=== PATIENT | female | born 1965 | race Caucasian/White ===

== ENCOUNTER 2018-07-04 13:41 | Emergency (ER) | payer SELFPAY ==
[2018-07-04] VITALS (7 sets, daily range): BP systolic 139–144; BP diastolic 70–73; PULSE 84–99; RESP 11–16; TEMP 36.4; O2SAT 99–100; BMI 34.2
--- NOTE | 2018-07-04 14:25 | RAD_ITS ---
STUDY: X-RAY CHEST REASON FOR EXAM: Female, 52 years old. Cough TECHNIQUE: Portable upright chest COMPARISON: None. FINDINGS: The lungs are clear and expanded. Normal cardiomediastinal silhouette, yaneli and pleural margins. No acute osseous or upper abdominal process. RAD/Chest 1 View (Portable) IMPRESSION: No acute cardiopulmonary process. Electronically Signed: Isra Rubio MD at 14:56 EST Tel , Service support ,
--- NOTE | 2018-07-04 14:25 | EKG12_ITS ---
Test Reason : GEN ILLNESS Blood Pressure : / mmHG Vent. Rate : 084 BPM Atrial Rate : 084 BPM P-R Int : 130 ms QRS Dur : 078 ms QT Int : 346 ms P-R-T Axes : 025 014 055 degrees QTc Int : 408 ms Normal sinus rhythm Nonspecific ST and T wave abnormality Abnormal ECG Confirmed by ROMANA DUONG, KRISHNA ([id number]), pictures editor COLLEEN GREENWOOD ([id number]) on 07/15/2018 2:45:45 PM Referred By: JOAQUÍN Confirmed By:KRISHNA AVENDANO MD
--- NOTE | 2018-07-04 14:29 | NURSING ---
NO OLD EKGS
[2018-07-04 14:37] LABS: Absolute Lymphocyte Count 1.82 X10^3/ul (0.83-4.51); Absolute Neutrophil Count 3.2 X10^3/uL (2.0-7.7); Basophil# 0.03 X10^3/uL; Basophil% 0.5 % (0-1); Eosinophil# 0.12 X10^3/uL; Eosinophils% 2.2 % (0-5); Hematocrit 35.3 % (37-47); Hemoglobin 11.6 g/dl (12.0-15.0); Lymphocyte # 1.82 X10^3/ul (4.0); Lymphocyte % 32.7 % (19-41); Mean Corp Hgb Conc 32.9 g/gl (32-36); Mean Corpuscular Volume 82.1 fL (81-99); Mean Platelet Vol. 10.1 fl (6.2-12.0); Monocyte% 7.2 % (0-10); Neutrophil # 3.19 X10^3/uL (2.7-7.7); Neutrophil % 57.2 % (47-70); POSITIVE COUNT NO; POSITIVE DIFFERENTIAL NO; POSITIVE MORPHOLOGY NO; Platelet Count 280 K/mm3 (150-450); RBC Distribution Width CV 13.7 % (11.6-14.6); RBC Distribution Width SD 40.9 fl (35.1-43.9); White Blood Count 5.6 K/mm3 (4.4-11.0)
[2018-07-04] MEDS: 0.9% Normal Saline 1,000 ML 1000 ML IV (14:44)
[2018-07-04] MEDS: Ondansetron 4 MG/2 ML Vial IV (14:45)
[2018-07-04 14:55] LABS: ALB/GLOB Ratio 1.1 RATIO (0.9-2.4); AST(SGOT) 9 U/L (15-37); Alanine Aminotransfer ALT/SGPT 17 U/L (13-56); Albumin, Serum 3.4 g/dL (3.2-5.0); Alkaline Phosphatase 80 U/L (45-117); Anion Gap 15 (5-15); BUN 16 mg/dL (7-18); BUN/Creat Ratio 13.7 RATIO (10-20); Chloride 105 mmol/L (98-107); Creatinine, Serum 1.17 mg/dL (0.55-1.02); EST Glomerular Filtration Rate 51 mL/min (>60); Est Glom Filt Rate - Afr Amer 62 mL/min (>60); Estimated Creatinine Clearance 45.47 ml/min; Globulin 3.1 g/dL (2.2-4.2); Glucose 356 mg/dL (74-106); Lipase 138 U/L (73-393); Potassium 4.5 mmol/L (3.5-5.1); Protein, Total 6.5 g/dL (6.4-8.2); Sodium Level 141 mmol/L (136-145)
[2018-07-04] MEDS: 0.9% Normal Saline 1,000 ML 150 ML IV (15:35)
[2018-07-04 15:43] LABS: Bacteria 0 SEEN /hpf (None Seen); Mucous, Urine 0 SEEN /hpf (<or=2+); Red Blood Cells-Urine 0 SEEN /hpf (0-5)
[2018-07-04 15:44] LABS: Color, Urine Yellow (Yellow); Glucose, Dipstick 1000 mg/dl (Normal); Ketone-Dipstick 50 mg/dl (Negative); Leukocyte Esterase-Dipstick 25 /ul (Negative); Nitrite-Dipstick Negative (Negative); Occult Blood-Urine 10 /ul (Negative); Protein-Dipstick 30 mg/dl (Negative); Urine Bilirubin Dipstick Negative (Negative); Urine Clarity Sl. Cloudy (Clear); Urine Urobilinogen Normal (Normal)
[2018-07-04 15:51] LABS: Squamous Epithelial Cells - UA 0-5 SEEN /hpf (5-10)
[2018-07-04 15:53] LABS: Hyaline Cast 10-25 SEEN /lpf (0-5)
[2018-07-04 15:54] LABS: White Blood Cells 0-5 SEEN /hpf (0-5)
[2018-07-04 15:55] LABS: Calcium Oxalate Crystals Ur RARE /hpf (<or=2+)
[2018-07-04 15:56] LABS: Transitional Epithelial - Ur 0-5 SEEN /hpf (0-5)
--- NOTE | 2018-07-04 15:57 | ED.VISSUMM ---
- ER Visit Summary Date of Service: 07/04/18 Chief Complaint: Nausea History of Present Illness: The patient is a 52 F who states that about 1-1/2-2 weeks ago she had URI consisting of rhinorrhea and sore throat. She also had a cough. She states that for the past week she has felt nauseated. She notes decreased p.o. She feels lightheaded. She states she is unable to work due to the nausea. Last night brother and she became concerned about her symptoms particularly her elevated blood sugars so she came to the emergency department. She has not spoken to her family doctor. She does note she has had some diarrhea today. Physical Examination: Afebrile vital signs are stable Gen: Well-nourished well-developed Head: Normocephalic atraumatic Eyes: Perrl EOMI ENT: TMs clear no rhinorrhea moist mucous membranes Neck: Supple no lymphadenopathy no JVD nontender CVS: Regular rate rhythm no murmurs normal S1-S2 Respiratory: No distress clear to auscultation bilaterally chest nontender Abdomen: Soft nontender nondistended normal bowel sounds no masses Back: Nontender Extremity: Nontender no edema Skin: Normal color no rash Neuro: alert orientated ?3 CN II-XII intact normal strength sensation reflexes gait cerebellar Psych: Normal affect normal mood Test Results: White count is normal. Chemistry showed a glucose of 356 and creatinine 1.17. Liver lipase normal. Acetone is negative. Troponin negative. Urinalysis negative. EKG shows sinus rhythm with a rate of 84. Chest x-ray is negative. Emergency Department Course and Treatment: Patient received IV fluids and Zofran. Her blood sugar is down. I will write for the patient to have Zofran. She is to orally hydrate. Follow-up with her primary care physician. Impression: 1. Diabetic hyperglycemia 2. Viral syndrome This note was generated with [employer] dictation software. It may contain incorrect words, spelling, and punctuation that were not noted in review of the chart prior to signing ED Disposition - Plan for ED Patient: Disposition: Home or Assisted Living Chief Complaint: General Illness Instructions: ED Dehydration Prescriptions: Ondansetron [Zofran Odt] 4 mg PO Q6H PRN PRN #10 tab PRN Reason: Nausea Referrals: Desiree Sarmiento MD [Primary Care Provider] - As soon as possible
[2018-07-04 16:36] LABS: Bedside Glucose 247 mg/dL (70-110)
== END 2018-07-04 16:58 | disposition home or self-care (01) ==
PROVIDERS: Emergency Provider Emergency Medicine; Family Provider Family Medicine; PCP Family Medicine
DX: B34.9 Viral infection, unspecified (principal); E11.65 Type 2 diabetes mellitus with hyperglycemia; E78.00 Pure hypercholesterolemia, unspecified; Z79.4 Long term (current) use of insulin; Z79.82 Long term (current) use of aspirin; Z79.899 Other long term (current) drug therapy
CPT/HCPCS: 71045; 80053; 81001; 82009; 82962; 83690; 84484; 85025; 87804; 93005; 96361; 96374; 99285; J7030; A4216; J2405

== ENCOUNTER 2020-06-20 23:25 | Emergency (ER) | payer SELFPAY ==
[2020-06-20 23:27] VITALS: PULSE 117; RESP 26; TEMP 36.9; O2SAT 100; BMI 31.8
--- NOTE | 2020-06-20 23:40 | ED.RN ---
RN CALLED FOR EKG, NO OLD EKGS IN MUSE
[2020-06-20 23:41] VITALS: BP 267/107; PULSE 109; RESP 21; O2SAT 100
[2020-06-20] MEDS: LORazepam 2 MG/ML Syringe IV (23:41)
--- NOTE | 2020-06-20 23:56 | EKG12_ITS ---
Test Reason : SOB Blood Pressure : / mmHG Vent. Rate : 111 BPM Atrial Rate : 111 BPM P-R Int : 148 ms QRS Dur : 084 ms QT Int : 324 ms P-R-T Axes : 026 022 037 degrees QTc Int : 440 ms Sinus tachycardia with occasional Premature ventricular complexes Nonspecific T wave abnormality Abnormal ECG Confirmed by WILLIE DUONG, HANSA ([id number]), restaurant expeditor MARIALUISA VERA ([id number]) on 06/24/2020 9:06:16 AM Referred By: Nerissa Sanderson Confirmed By:HANSA TAPIA MD
[2020-06-20] MEDS: Succinylcholine Chloride 200 MG/10 ML Vial 150 MG IV (23:57)
[2020-06-21] VITALS (18 sets, daily range): BP systolic 92–200; BP diastolic 28–134; PULSE 75–98; RESP 14–20; TEMP 37.3–39.2; O2SAT 98–100
--- NOTE | 2020-06-21 00:01 | ED.DCSUM_ITS ---
History of Present Illness Chief Complaint: Alt LOC Informant: Family Narrative: Unable to get a history from the patient secondary to altered mental status History of present illness from welt maker and . stated he came home from work this evening approximately an hour prior to coming in and the patient was found on the kitchen floor facedown in a puddle of urine. She was altered and confused. Called EMS. EMS stated she had hyperglycemia. She does have a history of diabetes. stated she has never had a seizure before. He was unsure if she had a seizure. EMS brought her in for further evaluation. stated history of depression. He does not think she overdosed. She had a negative Covid test last week. He did states she has had some headaches over the last few days. She does have history of migraines Past Medical History - Allergies and Home Meds Allergies/Adverse Reactions: Allergies No Known Allergies Allergy (Verified 06/21/20 00:04) Primary Care Physician: Desiree Sarmiento MD [Primary Care Provider] - Prior records reviewed: Yes Past Medical History: - - See problem list Surgical History: - - Surgery Lives: Spouse/ Significant Other Alcohol: None Drugs: None - Family History Maternal Family History: Reports: Diabetes Paternal Family History: Reports: Diabetes Review of Systems ROS: Unable to Obtain Physical Exam Vital Signs/Narrative: Vital Signs Temp Pulse Resp BP Pulse Ox 06/20/20 23:41 109 H 21 H 267/107 H 100 06/20/20 23:27 98.4 F 117 H 26 H 100 General: Well nourished, Obese, - - Patient is unconscious and had a seizure lasting 30 seconds upon arrival. Full tonic-clonic. Positive postictal state Head: Normocephalic, Atraumatic Eyes: Perrl - To 2 mm bilateral. Deviated up into the left., EOMI ENT: Moist mucous membranes, No rhinorrhea Neck: Supple, No JVD Cardiovascular: Regular rhythm, No murmurs, Tachycardia Respiratory: CTA bilaterally, Chest nontender, Decreased Air Movement, - - Shallow breath sounds bilateral Abdomen: Soft, Nondistended, Normal bowel sounds Back: Normal Inspection Extremities: No edema. Negative for: Edema Skin: Normal color, No rash Neurological: - - Patient's GCS is 6. She gets 4 points for eye opening and 1 for verbal and movement of extremities positive gag reflex.. Negative for: Alert, Oriented x3, Cranial nerves II-XII grossly intact, Normal Strength, Normal Sensation Diagnostic/Tx/Re-eval - Medical Decision Making Upon arrival patient placed on a nonrebreather and switched over to a [id number]. Given 2 mg of Ativan for her initial seizure. The patient's breathing was quite shallow. She remained 100% pulse ox but was taking very shallow breaths. Was decided to intubate the patient to protect her airway. Patient was intubated with a 7.0 endotracheal tube direct utilization of the vocal cords. Tube was passed easily 23 at the lips. Good breath sounds bilateral. Patient made 100% on the pulse ox. Patient given succinylcholine for intubation after Ativan. Placed on propofol drip. Blood pressure quite high on arrival greater than 250 systolic. She has no history of hypertension. Patient received an OG tube and Neal catheter. Sent down to the CAT scanner immediately for a CT of her head. CT of the head and neck are negative. Rotation of the EKG shows sinus tachycardia with PVCs rate of 111. No acute STEMI. My interpretation of the chest x-ray shows nothing acute. ET tube in proper place in the trachea. No acute infiltrates. Coronavirus testing negative. Patient's lab work shows evidence of diabetic ketoacidosis with positive ketones in the urine and blood. Patient's initial blood sugar greater than 800. Patient started on insulin drip and given IV fluid boluses. The patient did go into status epilepticus. She was given incremental doses of Ativan up to 8 mg. Patient was given 2 propofol boluses. The patient was started on Dilantin IV. The patient's seizure stopped after approximately 15 minutes after return from the CAT scanner. Discussed with the hospitalist. The hospitalist initially admitted the patient but would like the patient transferred to a tertiary care center for further treatment of the status epilepticus. Patient's pH is 7.29 on ABG. Patient will be transferred. - Critical Care Time Critical care time (excluding procedures): 75-104 minutes, Discussing w/Patient &/or Family/Qualitative Field Project Manager, Discussing w/Consultants, Arranging Admission or Trans kaylan, Performing Direct Patient Care at Bedside ED Disposition - Plan for ED Patient: Disposition: [facility] Diagnosis: Diabetic ketoacidosis, Respiratory failure, Status epilepticus, Coma Referrals: Desiree Sarmiento MD [Primary Care Provider] -
--- NOTE | 2020-06-21 00:03 | CT_ITS ---
STUDY: CT BRAIN WITHOUT CONTRAST REASON FOR EXAM: Female, 64 years old. SEIZURE/DECREASED LOC/Elevated blood sugar. Hx of diabetes, gastric bypass and hypothyroid RADIATION DOSAGE (If Supplied By Facility): CTDIvol = ( 44.99 ) mGy, DLP = ( 829.85 ) mGycm TECHNIQUE: Transaxial CT imaging of the brain was performed without administration of intravenous contrast material. There is image blurring as a result of patient motion. Diagnostic accuracy is somewhat reduced. However, there is substantial diagnostic information remaining available on this study. Individualized dose optimization techniques were used for this CT. COMPARISON: No relevant priors. FINDINGS: Normal soft tissue structures. Normal calvarium. There is mild cerebral atrophy with widening of the extra-axial spaces and ventricular dilatation. There are areas of decreased attenuation within the white matter tracts of the supratentorial brain, consistent with microvascular disease changes. Normal basal ganglia and thalami. Normal brainstem. Normal cerebellum. There is no intracranial hemorrhage. There are no findings of an acute ischemic infarction. Normal visualized paranasal sinuses. The bilateral mastoid air cells and ossicles are unopacified. Partially imaged oral enteric and endotracheal tube. CT/Brain/Head without Contrast IMPRESSION: Chronic involutional changes of the brain. There is no acute intracranial pathology. Electronically Signed: Rosario Barraza MD at 0:34 EST , Service support ,
--- NOTE | 2020-06-21 00:03 | CT_ITS ---
STUDY: CT CERVICAL SPINE WITHOUT CONTRAST REASON FOR EXAM: Female, 54 years old. SEIZURE/DECREASED LOC/Elevated blood sugar. Hx of diabetes, gastric bypass and hypothyroid. Repeated cspine d/t motion of seizures RADIATION DOSAGE (If Supplied By Facility): CTDIvol = ( 21.91 ) mGy, DLP = ( 904.88 ) mGycm TECHNIQUE: High resolution transaxial imaging was performed without contrast material. Sagittal and coronal images were reconstructed. Individualized dose optimization techniques were used for this CT. COMPARISON: None FINDINGS: Normal craniovertebral junction. There are degenerative changes of the anterior atlantoaxial articulation. Normal odontoid process. Normal cervical lordosis. ) Spondylosis with narrowing of disc space and uncovertebral changes at C5-C6. Otherwise unremarkable vertebral bodies and posterior osseous elements. C2-3: Normal endplates. Normal disc height and morphology. Normal central canal and intervertebral neuroforamina. C3-4: Normal endplates. Normal disc height and morphology. Normal central canal and intervertebral neuroforamina. C4-5: Mild endplate spondylosis. Mild bilateral apophyseal hypertrophy. No central canal stenosis. No neuroforaminal encroachment. C5-6: Endplate spondylosis with narrowing of disc space and uncovertebral changes. Borderline central canal stenosis. Mild narrowing of the intervertebral foramen. C6-7: Normal endplates. Normal disc height and morphology. Normal central canal and intervertebral neuroforamina. C7-T1: Normal endplates. Normal disc height and morphology. Normal central canal and intervertebral neuroforamina. Normal visualized soft tissue structures. CT/Spine Cervical without Contras IMPRESSION: Degenerative disease as described in more significant at C5-C6. No acute fracture or subluxation seen. Electronically Signed: Jany Mancini MD at 0:33 EST , Service support ,
[2020-06-21 00:04] LABS: Absolute Lymphocyte Count 4.52 X10^3/uL (0.83-4.51); Absolute Neutrophil Count 6.3 X10^3/uL (2.0-7.7); Basophil# 0.07 X10^3/uL; Basophil% 0.6 % (0-1); Eosinophil# 0.19 X10^3/uL; Eosinophils% 1.6 % (0-5); Hematocrit 33.8 % (37-47); Hemoglobin 10.7 g/dL (12.0-15.0); Lymphocyte # 4.52 X10^3/ul (4.0); Mean Corp Hgb Conc 31.7 g/dL (32-36); Mean Corpuscular Volume 85.1 fL (81-99); Mean Platelet Vol. 10.9 fl (6.2-12.0); Monocyte# 0.78 X10^3/uL; Monocyte% 6.6 % (0-10); NRBC Flagged by Analyzer 0 % (0-5); Neutrophil # 6.25 X10^3/uL (2.7-7.7); Neutrophil % 52.5 % (47-70); Platelet Count 344 K/mm3 (150-450); RBC Distribution Width CV 13.3 % (11.6-14.6); RBC Distribution Width SD 41.4 fl (35.1-43.9); Red Blood Count 3.97 M/mm3 (4.2-5.4); White Blood Count 11.9 K/mm3 (4.4-11.0)
[2020-06-21] MEDS: Propofol 10MG/Ml 1,000 MG/100 ML Bottle 4.9 MG CONT INF (00:05)
--- NOTE | 2020-06-21 00:05 | RAD_ITS ---
STUDY: X-RAY CHEST REASON FOR EXAM: Female, 54 years old. Intubation, OG tube placement. TECHNIQUE: Single AP portable view of the chest. COMPARISON: None. FINDINGS: The endotracheal tube has the tip approximately 2.1 cm above edel. The nasogastric tube has the tip at the level of the gastric antrum. The lungs are clear and expanded. There is no demonstrated pleural abnormality. Normal size heart. Normal mediastinum and yaneli. Normal visualized pulmonary arteries. Normal visualized aortic arch and descending thoracic aorta. There is demineralization of the osseous structures. Normal visualized ribs, clavicles, and shoulders. There is no demonstrated abnormality of the visualized soft tissue structures of the upper abdomen. RAD/Chest 1 View (Portable) IMPRESSION: No acute cardiopulmonary disease. Lines and tubes as described. Electronically Signed: Jany Mancini MD at 0:55 EST , Service support ,
[2020-06-21 00:09] LABS: Bacteria 0 SEEN /hpf (None Seen); Color, Urine Yellow (Yellow); Glucose, Dipstick 1000 mg/dl (Normal); Ketone-Dipstick 50 mg/dl (Negative); Leukocyte Esterase-Dipstick Negative /ul (Negative); Mucous, Urine 0 SEEN /hpf (<or=2+); Nitrite-Dipstick Negative (Negative); Occult Blood-Urine 50 /ul (Negative); Protein-Dipstick 500 mg/dl (Negative); Squamous Epithelial Cells - UA 0 SEEN /hpf (5-10); Urine Bilirubin Dipstick Negative (Negative); Urine Clarity Clear (Clear); Urine Urobilinogen Normal (Normal); Urine pH 6.5 (5.0 - 8.0); White Blood Cells 0 SEEN /hpf (0-5)
[2020-06-21 00:13] LABS: Partial Thromboplast Time 23.7 Seconds (24.1-36.2); Prothrombin Time (Protime)PT. 12.9 SECONDS (11.7-14.9)
[2020-06-21 00:15] LABS: Red Blood Cells-Urine 5-10 SEEN /hpf (0-5)
[2020-06-21 00:21] LABS: Bedside Glucose > 500 mg/dL (70-110)
[2020-06-21 00:23] LABS: ALB/GLOB Ratio 0.9 RATIO (0.9-2.4); AST(SGOT) 14 U/L (15-37); Alanine Aminotransfer ALT/SGPT 17 U/L (13-56); Albumin, Serum 3.3 g/dL (3.2-5.0); Alkaline Phosphatase 114 U/L (45-117); Anion Gap 17 (5-15); BUN 20 mg/dL (7-18); BUN/Creat Ratio 12.2 RATIO (10-20); Calcium,Total 8.9 mg/dL (8.5-10.1); Chloride 100 mmol/L (98-107); Creatinine, Serum 1.64 mg/dL (0.55-1.02); EST Glomerular Filtration Rate 33 mL/min (>60); Est Glom Filt Rate - Afr Amer 40 mL/min (>60); Estimated Creatinine Clearance 31.68 ml/min; Globulin 3.5 g/dL (2.2-4.2); Glucose 814 mg/dL (74-106); Potassium 3.4 mmol/L (3.5-5.1); Protein, Total 6.8 g/dL (6.4-8.2); Sodium Level 137 mmol/L (136-145)
[2020-06-21] MEDS: LORazepam 2 MG/ML Syringe IV ×3 (00:25→01:18)
[2020-06-21 00:32] LABS: Lactic Acid 7.7 mmol/L (0.4-1.9)
[2020-06-21] MEDS: 0.9% Normal Saline 1,000 ML 1000 ML IV ×2 (00:37→01:03)
--- NOTE | 2020-06-21 00:42 | HP.PCM_ITS ---
Problem List (1) New onset seizure Status: Acute (2) DKA (diabetic ketoacidoses) Status: Acute Qualifiers: Diabetes mellitus type: type 2 (3) Elevated BP without diagnosis of hypertension Status: Acute (4) Hypothyroidism Status: Chronic Qualifiers: Hypothyroidism type: unspecified Qualified Code(s): E03.9 - Hypothyroidism, unspecified (5) Chronic anemia Status: Chronic (6) Anxiety and depression Status: Chronic (7) GERD (gastroesophageal reflux disease) Status: Chronic Qualifiers: Esophagitis presence: esophagitis presence not specified Qualified Code(s): K21.9 - Gastro-esophageal reflux disease without esophagitis (8) Obesity (BMI 30.0-34.9) Status: Chronic History of Present Illness Date of Admission: 06/21/20 Chief Complaint: Unresponsive status The patient is a 64 y/o F w/ PMHx: Migraines, Diabetes mellitus type II, Depression and Anxiety, Hypothyroidism, Hx prior Gastric bypass who presents to the [facility] ED on 06/20/20 with history of decreased consciousness, found on the floor upon his arrival at home specifically in a puddle of urine and upon attempted arousal appeared confused and altered with EMS call and upon their evaluation noted significant hyperglycemia with no seizure history previously with ongoing complaint per her of headaches over the last several days. notes increased urinary frequency over the last week. Per ED physician report patient with eye deviation up to the left with seizure activity. did also note 1 week history of intermittent nausea without emesis and loose stools without fever, chills, cough, dyspnea or alteration to sense of taste/smell with negative covid testing in both her and himself (he is without symptoms). Initial ED vitals included T 98.4, heart rate 117, BP 267/107, respiratory rate 26, 100% on a nonrebreather 15 L with eventual emergent intubation with administration of succinylcholine and transition to propofol drip, CBC with WBC 11.9, hemoglobin 10.7, platelet 344 with increased lymphocytes, coags with PT 12.9, INR 1.0, PTT 23.7, urinalysis with specific gravity 1.010, protein 500, glucose 1000, ketones 50, occult blood 50 otherwise not marked appearing, EKG with ST without acute evidence of ischemia, CMP with potassium 3.4, anion gap 17, BUN/creatinine 20/1.64, glucose 814, unremarkable hepatic profile, troponin less than 0.015, lactic acid 7.7, CT head with chronic involutional changes with no acute intracranial findings, CT cervical spine with degenerative disc disease more significant C5-C6 with no acute fracture or subluxation identified. Patient with bowel movement noted in the ED and upon rolling status post washing of the patient she had onset of tonic-clonic seizure activity requiring Ativan administration with significant postictal phase following and transient hypoxia improving following seizure activity resolution. Patient was noted to be incontinent of urine during her seizure activity. In the ED patient ministered normal saline, Ativan, cisternal choline, propofol as well as labetalol in addition to initiation of insulin drip. While evaluated in the ED patient with onset recurrent seizure activity, RUE and upper chest jerking, head toward the left and ongoing L upper outer gaze deviation. Additional ativan administered and patient loaded with dilantin per ED. Past Medical History Past Medical History (Chronic Problems): Chronic Problems Hypothyroidism (Chronic) Chronic anemia (Chronic) Anxiety and depression (Chronic) GERD (gastroesophageal reflux disease) (Chronic) Obesity (BMI 30.0-34.9) (Chronic) Allergies No Known Allergies Allergy (Verified 06/21/20 00:04) Home Medications: Ambulatory Orders Medication Instructions Recorded Metformin HCl 500 mg PO 06/21/20 Prilosec 06/21/20 Synthroid 06/21/20 Venlafaxine HCl 06/21/20 Surgical History: - - Gastric bypass remotely, bilateral knee arthroscopic surgery, appendectomy. Psychiatric History: Anxiety, Depression CORE MOUNTER History: No pertinent CORE MOUNTER history Lives: Spouse/ Significant Other Smoking Status: Never smoker Tobacco Use: Non-smoker Alcohol: None Drugs: None - *Family History Maternal History Items: Diabetes Paternal History Items: Diabetes Review of Systems Unable to obtain accurate/complete ROS d/t: Unable to give ROS secondary to intubated/sedate status. Comment: ROS per spouse with + headaches, polyuria, nausea without emesis, diarrhea. VTE Information - Inpt Only VTE Present on Admission: No VTE Mechan Device Prophylaxis: SCD's VTE Pharm Prophylaxis ordered?: Yes Patient Problems: Active and Suspected Problems New onset seizure (Acute) DKA (diabetic ketoacidoses) (Acute) Elevated BP without diagnosis of hypertension (Acute) Subjective: Patient laying in the ED bed, recently intubated and sedated, upon evaluation patient with sudden onset left upper extremity jerking, left head rotation and left gaze upper deviation. Objective: Physical Examination: General: Intubated, sedated, during evaluation onset left upper extremity jerking, left neck/head deviation, left gaze deviation. Skin: normal color, turgor, no icterus, cyanosis. HEENT: AT/NC, EOM unable to be assessed given current presentation, left upper outer gaze deviation with left head/neck deviation, PERRLA, dry MM, no carotid bruits or JVD noted; however, thickened neck makes examination difficult. Lungs: Diminished breath sounds, greater bases, intubated, symmetric rise, no rales, ronchi or wheezing. Heart: Regular rate and rhythm; no gallop, rub audible. Abdomen: soft, obese, NTTP, ND, normal BS, no HSM. Extremities: no cyanosis, clubbing, or edema. Neurological: Intubated, sedated, during evaluation onset left upper extremity jerking, left neck/head deviation, left gaze deviation; cognitive function not baseline intact; pupils equally reactive to light and accomodation although current deviated gaze upper left; cranial nerves unable to be assessed given acute presentation/sedation/intubation, moving LUE current/jerking, strength difficult to assess given sedated, intubated status. Psychiatric: affect appears sedated, no acute evidence of depressive or anxiety feelings. - Physical Exam Vitals/I&O's: Vital Signs Temp Pulse Resp BP Pulse Ox 99.1 F 82 14 200/92 H 100 06/21/20 00:28 06/21/20 00:28 06/21/20 00:28 06/21/20 00:28 06/21/20 00:28 Oxygen Flow Rate (L/min) 15 Oxygen Delivery Method Mechanical Ventilator Weight: 180 lb 1.883 oz Body Mass Index (BMI) 31.8 Intake and Output for Last 24 Hours 06/19/20 06/20/20 06/21/20 23:59 23:59 23:59 Intake Total 3.29 / 3.29 Balance 3.29 / 3.29 Laboratory Results 06/20/20 23:35: POC Glucose > 500 H* 06/20/20 23:40: WBC 11.9 H, RBC 3.97 L, Hgb 10.7 L, Hct 33.8 L, MCV 85.1, MCH 27.0, MCHC 31.7 L, RDW Std Deviation 41.4, RDW Coeff of Jacqueline 13.3, Plt Count 344, MPV 10.9, Immature Gran % (Auto) 0.700, Neut % (Auto) 52.5, Lymph % (Auto) 38.0, [place] % (Auto) 6.6, Eos % (Auto) 1.6, Baso % (Auto) 0.6, Absolute Neuts (auto) 6.3, Absolute Lymphs (auto) 4.52 H, Nucleated RBC % 0 06/20/20 23:40: PT 12.9, INR 1.0, APTT 23.7 L 06/20/20 23:40: Sodium 137, Potassium 3.4 L, Chloride 100, Carbon Dioxide 20.0 L , Anion Gap 17 H, BUN 20 H, Creatinine 1.64 H, Estim Creat Clear Calc 31.68, Est GFR (MDRD) Af Amer 40 L, Est GFR (MDRD) Non-Af 33 L, BUN/Creatinine Ratio 12.2, Glucose 814 H*, Calcium 8.9, Total Bilirubin 0.30, AST 14 L, ALT 17, Alkaline Phosphatase 114, Troponin I < 0.015, Total Protein 6.8, Albumin 3.3, Globulin 3.5, Albumin/Globulin Ratio 0.9 06/20/20 23:40: Lactic Acid 7.7 H* 06/21/20 00:05: Urine Color Yellow, Urine Clarity Clear, Urine pH 6.5, Ur Specific [place] 1.010, Urine Protein 500 H, Urine Glucose (UA) 1000 H, Urine Ketones 50 H, Urine Occult Blood 50 H, Urine Nitrite Negative, Urine Bilirubin Negative, Urine Urobilinogen Normal, Ur Leukocyte Esterase Negative, Urine RBC 5-10 SEEN, Urine WBC 0 SEEN, Ur Squamous Epith Cells 0 SEEN, Urine Bacteria 0 SEEN, Urine Mucus 0 SEEN Current Medications Dextrose (Dextrose 50%-Water 25 Gm/50 Ml Disp.Syrin) 0 gm IV X1 PRN; Protocol PRN Reason: Hypoglycemia Protocol Propofol (Diprivan) 1,000 mg in 100 mls @ 4.902 mls/hr CONT INF .Q12H ERMIAS; Protocol Last Titration: 06/21/20 00:35 Dose: 20 mcg/kg/min, 9.8 mls/hr Documented by: Insulin Human Lispro 100 unit/ (Sodium Chloride) 100 mls @ 8.17 mls/hr CONT INF .[id number] ERMIAS; Protocol Sodium Chloride () 1,000 mls @ 1,000 mls/hr IV .Q1H ONE Stop: 06/21/20 01:33 Last Admin: 06/21/20 00:37 Dose: 1,000 mls/hr Documented by: Labetalol HCl (Labetalol (Prefilled) 20 Mg/4 Ml) 20 mg IV X1 ONE Stop: 06/21/20 00:46 Assessment/Plan All Active Problems New onset seizure (Acute) DKA (diabetic ketoacidoses) (Acute) Elevated BP without diagnosis of hypertension (Acute) The patient is a 64 y/o F w/ PMHx: Migraines, Diabetes mellitus type II, Depression and Anxiety, Hypothyroidism, Hx prior Gastric bypass who presents to the [facility] ED on 06/20/20 with history of decreased consciousness, found on the floor upon his arrival at home specifically in a puddle of urine and upon attempted arousal appeared confused and altered with EMS call and upon their evaluation noted significant hyperglycemia with no seizure history previously with ongoing complaint per her of headaches over the last several days. 1. New-Onset Seizure: New onset seizure activity witnessed in the ED with postictal phase following eventual need for intubation. Will admit to ICU, maintain on telemetry, maintain on seizure precautions, will initiate Keppra IV with load as well as PRN ativan IV, obtain TSH, mag, plan MRI Brain with and without contrast, request Neurology consultation once EEG/MRI obtained unless ongoing recurrent seizure activity despite AED administration. Requested UDS, EtOh level. NPO until assure no further seizure activity with also planned AM CXR given possible recent aspiration and intubated status, continue sedation with intubated status, ICU physician consulted and pending. EEG requested. Reported nausea, loose stools, stool culture/cdiff requested as well as pending COVID repeat testing. Discussed current status with ED and if ongoing seizures despite loading in the ED may necessitate transfer to Tertiary facility which also understands. 2. DKA w/ Diabetes mellitus type II with significant lactic acidosis: As noted #1, planned ICU admission, will continue on insulin drip, check serial K+, glucose w/ IVF changes pending these levels, serial chemistry, obtain mag, phos daily w/ repletion as needed, transition to home SC regimen when gap closed w/ overlap on drip, nutrition consultation. Hemoglobin A1c requested, trending lactic acid with initial 7.7. ABG pending upon evaluation. 3. Elevated blood pressure without hypertensive history: Patient with significantly elevated blood pressures upon ED arrival, will initiate IV hydralazine and if necessary also add IV Lopressor, once appropriate will initiate oral regimen if necessary. 4. Acute kidney injury suspected, possibly underlying chronic kidney disease, unknown: Secondary to acute presentation #1, #2. Admission BUN/Cr 20/1.64, prior baseline creatinine noted to be normal however unclear exact creatinine level. Will continue to aggressively hydrate, hold nephrotoxic medications and repeat chemistry in AM. 5. Hypokalemia: Admission K+ 3.4, magnesium level requested, supplementation given, continuing serial BMPs given presentation as noted. 6. Hypothyroidism: Continue home synthroid regimen once dose clarified, TSH and free T4 will be requested. 7. Anemia, suspect chronic, normocytic especially given gastric bypass history: Admission hemoglobin 10.7, unclear prior, suspect likely chronic component, will obtain iron panel, ferritin, vitamin B12, folic acid levels. 8. Anxiety and depression: We will hold patient venlafaxine pending dose confirmation. 9. GERD: We will maintain on IV Protonix. 10. DVT prophylaxis: SCDs, Lovenox. 11. 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 Discussed CODE status at length including difference between FULL code, DNR-CCA and DNR-CC status with family given patient current presentation. Following discussions about the differences in these status, requested continued Full Code status. Patient spouse understands that given unclear down/seizure time with significant hypoxia prior to his finding her and current presentation she may have notable issues. Advanced Care Planning Face to Face Time: 16 minutes. Inpatient E&M: 46684 Init Hosp L3 Procedures: 87205 Advncd Care Plan 30 Min
[2020-06-21] MEDS: Propofol 200 MG/20 ML Vial 50 MG IV BOLUS (01:03)
[2020-06-21 01:06] LABS: Allen Test Positive; Base Excess -3 mmol/L (-2 to +2); Bicarbonate 23.4 mmol/L (22-26); Blood Gas Specimen Type ART; FI02 50; Mode AC; O2 Delivery Device Adult Vent; PEEP 5; PO2 201 mmHG (75-100); RR 14; SITE R Radial; SO2 100 % (95-99); Total Carbon Dioxide 25 mmol/L; Vt 450; pCO2 48.6 mmHg (35-45); pH 7.29 (7.35-7.45)
--- NOTE | 2020-06-21 01:50 | ED.RN ---
DR PAREKH AWARE THAT PT CONTINUES TO SEIZE.
--- NOTE | 2020-06-21 02:29 | ED.RN ---
PT NOT CURRENTLY SEIZING. [facility] ON HOLD PER DR PAREKH.
[2020-06-21 02:36] LABS: Glucose 608 mg/dL (74-106)
[2020-06-21 03:31] LABS: Bedside Glucose > 500 mg/dL (70-110)
[2020-06-21 03:31] LABS: Bedside Glucose > 500 mg/dL (70-110)
--- NOTE | 2020-06-21 03:34 | ED.RN ---
REPORT CALLED TO MARIAJOSE MOLINA ON T2 AT [facility]. NO FURTHER QUESTION. WILL CALL WITH ETA WHEN AVAILABLE
[2020-06-21] MEDS: Ceftriaxone 1 GM/50 ML BAG IV (03:38)
[2020-06-21 03:59] LABS: Reflex Lactate? Y
[2020-06-21 04:11] LABS: Anion Gap 10 (5-15); BUN 20 mg/dL (7-18); BUN/Creat Ratio 12.7 RATIO (10-20); Calcium,Total 7.7 mg/dL (8.5-10.1); Chloride 107 mmol/L (98-107); Creatinine, Serum 1.57 mg/dL (0.55-1.02); EST Glomerular Filtration Rate 36 mL/min (>60); Est Glom Filt Rate - Afr Amer 44 mL/min (>60); Glucose 575 mg/dL (74-106); Magnesium 1.6 mg/dL (1.6-2.6); Phosphorus 2.9 mg/dL (2.5-4.9); Potassium 3.3 mmol/L (3.5-5.1); Sodium Level 140 mmol/L (136-145)
[2020-06-21] MEDS: 0.9% Normal Saline 1,000 ML 150 ML IV (04:25)
[2020-06-21] MEDS: Potassium Chloride 10mEq/100mL 10 MEQ/100 ML IV.SOLN. 100 MEQ IV BOLUS ×2 (04:25→05:15)
[2020-06-21] MEDS: Acetaminophen 650 MG Suppository 1000 MG RECTAL (04:26)
[2020-06-21 04:42] LABS: Glucose 421 mg/dL (74-106)
[2020-06-21 04:57] LABS: Lactic Acid 5.2 mmol/L (0.4-1.9)
[2020-06-21 05:36] LABS: Bedside Glucose 346 mg/dL (70-110)
[2020-06-21 06:25] LABS: Bedside Glucose 322 mg/dL (70-110)
[2020-06-21 07:25] LABS: Bedside Glucose 271 mg/dL (70-110)
[2020-06-21] MEDS: Propofol 200 MG/20 ML Vial 30 MG IV BOLUS (08:58)
[2020-06-21 09:06] LABS: Bedside Glucose 263 mg/dL (70-110)
== END 2020-06-21 09:09 | disposition short-term general hospital (02) ==
LOC: ED 06-21 00:11 → ICU 06-21 01:13 → ED 06-21 02:52
PROVIDERS: Emergency Provider Emergency Medicine; PCP Family Medicine; Referring Provider Family Medicine; Visit Provider Family Medicine
DX: E11.11 Type 2 diabetes mellitus with ketoacidosis with coma (principal); J96.90 Respiratory failure, unspecified, unspecified whether with hypoxia or hypercapnia; G40.901 Epilepsy, unspecified, not intractable, with status epilepticus; E66.9 Obesity, unspecified
CPT/HCPCS: 31500; 36600; 51702; 70450; 71045; 72125; 80048; 80053; 81001; 82009; 82803; 82947; 82962; 83605; 83735; 84100; 84484; 85025; 85610; 85730; 87040; 87426; 93005; 94002; 96365; 96366; 96367; 96375; 96376; 99251; 99285; J7030; J7050; A4216; G0463; J0330; J7799

== ENCOUNTER 2022-08-07 13:30 | Inpatient (IN) | payer MEDICAID, SELFPAY ==
[2022-08-07] VITALS (78 sets, daily range): BP systolic 55–121; BP diastolic 28–74; PULSE 20–90; RESP 12–45; TEMP 28.8–30.6; O2SAT 93–100; BMI 27.3; BMI 25.0
[2022-08-07] MEDS: Etomidate 20 MG/10 ML Vial IV (13:35)
--- NOTE | 2022-08-07 13:41 | CT_ITS ---
STUDY: CT BRAIN WITHOUT CONTRAST REASON FOR EXAM: Female, 56 years old. Unresponsive, unreactive midpoint pupils RADIATION DOSAGE (If Supplied By Facility): CTDIvol = ( 44.99 ) mGy, DLP = ( 779.24 ) mGycm TECHNIQUE: Transaxial CT imaging of the brain was performed without administration of intravenous contrast material. Individualized dose optimization techniques were used for this CT. COMPARISON: No relevant priors. FINDINGS: Normal soft tissue structures. Normal calvarium. There is mild cerebral atrophy with widening of the extra-axial spaces and ventricular dilatation. Normal white matter tracts of the cerebral hemispheres. Annual occlusion in the right thalamus. Normal brainstem. Normal cerebellum. There is no intracranial hemorrhage. There are no findings of an acute ischemic infarction. Atherosclerotic calcification of the cavernous portions of the internal carotid arteries bilaterally. Normal visualized paranasal sinuses. CT/Brain/Head without Contrast IMPRESSION: Chronic involutional changes of the brain. Tiny lacunae in the right thalamus. Electronically Signed: Sunil Quintanilla MD at 14:27 EST ,
--- NOTE | 2022-08-07 13:42 | EKG12_ITS ---
Test Reason : UNRESPONSIVE Blood Pressure : / mmHG Vent. Rate : 044 BPM Atrial Rate : 044 BPM P-R Int : 210 ms QRS Dur : 090 ms QT Int : 528 ms P-R-T Axes : 064 044 078 degrees QTc Int : 451 ms Marked sinus bradycardia with 1st degree A-V block Low voltage QRS Nonspecific T wave abnormality Abnormal ECG Confirmed by WILLIE DUONG, HANSA ([id number]), editor school photograph MARIALUISA VERA ([id number]) on 08/10/2022 1:53:10 PM Referred By: Confirmed By:HANSA TAPIA MD
[2022-08-07] MEDS: Atropine Sulfate 1 MG/10 ML Syringe IV (13:45)
[2022-08-07 14:10] LABS: Hematocrit 35.9 % (37-47); Hemoglobin 9.3 g/dL (12.0-15.0); Mean Corp Hgb Conc 25.9 g/dL (32-36); Mean Corpuscular Hgb 27.4 pg (27.0-32.0); Mean Corpuscular Volume 105.6 fL (81-99); Mean Platelet Vol. 10.4 fl (6.2-12.0); POSITIVE COUNT YES; POSITIVE DIFFERENTIAL YES; POSITIVE MORPHOLOGY YES; Platelet Count 416 K/mm3 (150-450); RBC Distribution Width CV 14.5 % (11.6-14.6); RBC Distribution Width SD 56.8 fl (35.1-43.9); White Blood Count 18.7 K/mm3 (4.4-11.0)
[2022-08-07 14:16] LABS: International Normalized Ratio 1.8; Prothrombin Time (Protime)PT. 20.3 SECONDS (11.7-14.9)
[2022-08-07 14:17] LABS: Partial Thromboplast Time 81.3 Seconds (24.1-36.2)
[2022-08-07] MEDS: Sodium Bicarbonate 8.4% 50 ML Syringe 100 MEQ IV ×2 (14:18→15:43)
--- NOTE | 2022-08-07 14:19 | EX.ED.CRITCA ---
HPI History of Present Illness Chief Complaint: Unresponsive Detail of Chief Complaint: Unresponsive, GCS is 6. Informant: EMS (Per medic his last known well last evening.) Onset/Context/Timing Quality: GCS 6 no response to verbal, tactile or noxious stimuli Location: Presents from home Current Severity: Severe Maximum Severity: Severe Worsened by: Unknown, blood sugar 184 per squad Relieved by: Nothing Associated Symptoms Length of loss of consciousness: Unknown Narrative Narrative: Patient is a 56-year-old woman with history of type II, hypertension and hypothyroidism. She is unable to participate with regards to history of physical. Prior similar symptoms: No Recent Illness/Hospitalization: No PFSH PFSH Home Medications Ibuprofen [Motrin] 800 mg PO Q8H PRN PRN Pain 07/04/18 [History Last Taken Unknown] aspirin 81 mg chewable tablet 81 mg PO DAILY@0800 07/04/18 [History Last Taken Unknown] atorvastatin 20 mg tablet 20 mg PO QHS 07/04/18 [History Last Taken Unknown] insulin aspart U-100 100 unit/mL (3 mL) subcutaneous pen (Novolog FlexPen U-100 Insulin aspart) 30 units subcut BIDCM 07/04/18 [History Last Taken Unknown] lisinopril 5 mg tablet 5 mg PO DAILY 07/04/18 [History Last Taken Unknown] metformin 1,000 mg tablet 1,000 mg PO BIDCM 07/04/18 [History Last Taken Unknown] ondansetron 4 mg disintegrating tablet 4 mg PO Q6H PRN PRN Nausea #10 tabs 07/04/18 [Rx Last Taken Unknown] venlafaxine 150 mg capsule,extended release 24 hr 150 mg PO DAILY 07/04/18 [History Last Taken Unknown] Prilosec 06/21/20 [History Last Taken Unknown] Synthroid 06/21/20 [History Last Taken Unknown] Venlafaxine HCl 06/21/20 [History Last Taken Unknown] metformin 500 mg tablet 500 mg PO 06/21/20 [History Last Taken Unknown] Allergy/AdvReac Type Severity Reaction Status Date / Time No Known Allergies Allergy Verified 06/25/20 15:08 Social History Smoking Status: Never smoker ROS ROS ED Review of Systems ROS Unobtainable: due to mental status EXAM Physical Exam Const Vital Signs: 08/07/22 13:43 08/07/22 13:58 08/07/22 13:32 Temperature 83.8 F L Temperature Source Temporal Pulse Rate 20 L 45 L Respiratory Rate 12 22 H Respiratory Depth Shallow Respiratory Pattern Irregular Blood Pressure 70/37 L Blood Pressure Mean 48 Pulse Ox 93 100 Oxygen Delivery Method Non-Rebreather Mechanical Ventilator Mechanical Ventilator 08/07/22 13:51 08/07/22 13:52 08/07/22 13:56 Temperature Temperature Source Pulse Rate 50 L 45 L 44 L Respiratory Rate 45 H 18 16 Respiratory Depth Respiratory Pattern Blood Pressure 67/47 L 68/33 L Blood Pressure Mean 55 45 Pulse Ox 94 100 Oxygen Delivery Method 08/07/22 13:58 08/07/22 13:59 08/07/22 14:00 Temperature Temperature Source Pulse Rate 45 L 54 L 45 L Respiratory Rate 21 H 19 H 12 Respiratory Depth Respiratory Pattern Blood Pressure 70/37 L Blood Pressure Mean 49 Pulse Ox 100 100 Oxygen Delivery Method 08/07/22 14:06 08/07/22 14:21 08/07/22 13:38 Temperature Temperature Source Pulse Rate 44 L 40 L Respiratory Rate 23 H 14 Respiratory Depth Respiratory Pattern Blood Pressure 76/39 L 69/28 L Blood Pressure Mean 52 42 Pulse Ox 100 100 Oxygen Delivery Method 08/07/22 14:24 08/07/22 14:25 08/07/22 14:30 Temperature Temperature Source Pulse Rate 58 L 57 L 55 L Respiratory Rate 17 16 14 Respiratory Depth Respiratory Pattern Blood Pressure 73/57 L Blood Pressure Mean 63 Pulse Ox 100 100 Oxygen Delivery Method 08/07/22 14:31 08/07/22 14:32 08/07/22 14:33 Temperature Temperature Source Pulse Rate 54 L 55 L 54 L Respiratory Rate 16 12 13 Respiratory Depth Respiratory Pattern Blood Pressure 70/32 L 69/33 L Blood Pressure Mean 45 46 Pulse Ox 100 100 100 Oxygen Delivery Method 08/07/22 14:36 08/07/22 14:40 08/07/22 14:41 Temperature Temperature Source Pulse Rate 54 L 48 L 48 L Respiratory Rate 19 H 17 22 H Respiratory Depth Respiratory Pattern Blood Pressure 57/33 L 55/39 L Blood Pressure Mean 42 47 Pulse Ox 100 100 100 Oxygen Delivery Method 08/07/22 14:46 08/07/22 14:49 08/07/22 14:50 Temperature Temperature Source Pulse Rate 47 L 46 L 46 L Respiratory Rate 20 H Respiratory Depth Respiratory Pattern Blood Pressure 65/39 L 65/35 L Blood Pressure Mean 49 46 Pulse Ox 100 100 100 Oxygen Delivery Method 08/07/22 14:51 08/07/22 14:56 08/07/22 14:57 Temperature Temperature Source Pulse Rate 46 L 66 46 L Respiratory Rate 19 H 18 Respiratory Depth Respiratory Pattern Blood Pressure 67/34 L 70/36 L 74/31 L Blood Pressure Mean 45 48 46 Pulse Ox 100 100 100 Oxygen Delivery Method 08/07/22 15:00 08/07/22 15:01 08/07/22 15:24 Temperature Temperature Source Pulse Rate 46 L 43 L 44 L Respiratory Rate 19 H 19 H 21 H Respiratory Depth Respiratory Pattern Blood Pressure 71/34 L 65/28 L Blood Pressure Mean 46 40 Pulse Ox 100 100 94 Oxygen Delivery Method 08/07/22 15:34 08/07/22 15:02 08/07/22 15:05 Temperature Temperature Source Pulse Rate 44 L 45 L 45 L Respiratory Rate 20 H 15 16 Respiratory Depth Respiratory Pattern Blood Pressure 66/29 L 70/35 L Blood Pressure Mean 41 47 Pulse Ox 95 100 100 Oxygen Delivery Method 08/07/22 15:10 08/07/22 15:11 08/07/22 15:20 Temperature Temperature Source Pulse Rate 45 L 44 L Respiratory Rate 18 19 H Respiratory Depth Respiratory Pattern Blood Pressure 70/38 L Blood Pressure Mean 50 Pulse Ox 100 100 Oxygen Delivery Method 08/07/22 15:21 08/07/22 15:22 08/07/22 15:26 Temperature Temperature Source Pulse Rate 44 L 57 L 44 L Respiratory Rate 17 18 16 Respiratory Depth Respiratory Pattern Blood Pressure 65/33 L 65/28 L 64/33 L Blood Pressure Mean 44 40 44 Pulse Ox Oxygen Delivery Method 08/07/22 15:30 Temperature Temperature Source Pulse Rate 44 L Respiratory Rate 14 Respiratory Depth Respiratory Pattern Blood Pressure Blood Pressure Mean Pulse Ox Oxygen Delivery Method Positive well nourished and well developed Constitutional Narrative: Patient eyes are open. Negative doll's eyes. Pupils are midpoint and nonreactive. General Appearance ED: well developed and NAD HEENT HEENT Narrative: There is no evidence of head trauma. TMs normal with no evidence of blood. No septal deviation hematoma. Patient has dry mucosa and debris noted in her mouth. normocephalic and atraumatic Eyes Negative for PERRL or EOMs intact bilaterally General Eye ED: Negative for pale conjunctiva or scleral icterus Neck no lymphadenopathy, supple and no JVD Neck Narrative: Trachea midline. Chest Wall Chest Narrative: Chest appears normal. Resp Resp Narrative: Diminished breath sounds. Rales noted bilaterally. Cardio no murmurs Rate: bradycardia GI non-distended and no masses GI Narrative: Multiple well-healed surgical scars noted. Auscultation: hypoactive bowel sounds Palpation: soft Back/Spine Back/Spine Narrative: Back appears normal. Pelvis is stable. Extremity Extremity Narrative: There is no acrocyanosis. There is no clubbing. Neuro No oriented x3 Neuro Narrative: GCS is 3. Psych Psych Narrative: Unable to determine Skin Skin Narrative: Pallor with decreased capillary refill MDM MDM MDM Narrative Medical decision making narrative: Patient presents in critical condition hypotensive with third-degree heart block. Patient received atropine with response. Patient required additional dose of atropine for bradycardia with low blood pressure. Please read nurses notes for time and meds that were administered. Because patient has a GCS of 6 unable to protect her airway she was orotracheal intubated. She received 20 mg of etomidate and 50 mg of rocuronium. She was easily orotracheally intubated with glide scope first attempt using a 7.0 endotracheal tube. Tube is 23 cm at the incisors. Neal was placed Turn[place] seen staff. OG was placed per nursing staff. With patient having midpoint pupils concerned this may represent intracranial bleed. CT of the head was obtained. Need to also entertain possibility of metabolic or infectious etiology. Blood sugar per squad was normal this was reassessed to assure this was accurate. Blood sugar is 124. This would not explain her profound depressed level of conscious. Because of patient's profound metabolic acidosis she received 2 A of bicarb IV push and bicarb drip. Patient's pH improved slightly. Will administer additional 2 A of bicarb IV push. We will also order methanol level and ethylene glycol especially with the acute onset of renal failure with regards to the ethylene glycol. Patient is not a thrombolytic candidate. With acute renal failure she is not a candidate for CTA or CT head. The onset of her symptoms is unknown. Lab Data Attestation: I reviewed the patient's lab results. Lab results narrative: White count is elevated 18.7 thousand. Patient is 52% segs, 46% lymphocytes with path to follow.'s are normal. Comprehensive metabolic panel is marked for a CO2 of 3 with an anion gap of 32. BUN and creatinine are 44 and 5.6 respectively. Estimated GFR is 8. Glucose is 135 with. Transaminases are normal. Lactate is 15.8. ABG from right subclavian artery reveals a pH is 6.52, PCO2 34, PO2 266, bicarb 2.8 with a base excess of -30. Saturation 98.2%. This indicates a significant metabolic acidosis with increased AA gradient. Patient has marcelo red appearing blood. In light of this with elevated lactate and profound acidosis cyanide level was ordered. Labs: Laboratory Results - last 24 hr 08/07/22 08/07/22 08/07/22 13:30 13:30 13:30 WBC 18.7 H RBC 3.40 L Hgb 9.3 L Hct 35.9 L MCV 105.6 H MCH 27.4 MCHC 25.9 L RDW Std Deviation 56.8 H RDW Coeff of Jacqueline 14.5 Plt Count 416 MPV 10.4 Neut % (Auto) Not Reportable Absolute Neuts (auto) 9.7 H Absolute Lymphs (auto) 8.60 H Total Counted 100 Neutrophils % (Manual) 52 Lymphocytes % (Manual) 46 H Monocytes % (Manual) 2 Diff Path Review May foll Atypical Lymphocytes 2+ Platelet Estimate ADEQUATE RBC Morphology N CHROM Macrocytosis 3+ PT 20.3 H INR 1.8 APTT 81.3 H Sodium 141 Potassium 5.2 H Chloride 106 Carbon Dioxide 3.0 L* Anion Gap 32 H BUN 44 H Creatinine 5.60 H Estim Creat Clear Calc 8.66 Est GFR (MDRD) Af Amer 10 L Est GFR (MDRD) Non-Af 8 L BUN/Creatinine Ratio 7.9 L Glucose 135 H Lactic Acid Calcium 10.3 H Total Bilirubin 0.20 AST 57 H ALT 25 Alkaline Phosphatase 78 Troponin I High Sens 22 Total Protein 5.8 L Albumin 3.0 L Globulin 2.8 Albumin/Globulin Ratio 1.1 08/07/22 13:30 WBC RBC Hgb Hct MCV MCH MCHC RDW Std Deviation RDW Coeff of Jacqueline Plt Count MPV Neut % (Auto) Absolute Neuts (auto) Absolute Lymphs (auto) Total Counted Neutrophils % (Manual) Lymphocytes % (Manual) Monocytes % (Manual) Diff Path Review Atypical Lymphocytes Platelet Estimate RBC Morphology Macrocytosis PT INR APTT Sodium Potassium Chloride Carbon Dioxide Anion Gap BUN Creatinine Estim Creat Clear Calc Est GFR (MDRD) Af Amer Est GFR (MDRD) Non-Af BUN/Creatinine Ratio Glucose Lactic Acid 15.8 H* Calcium Total Bilirubin AST ALT Alkaline Phosphatase Troponin I High Sens Total Protein Albumin Globulin Albumin/Globulin Ratio ABG reveals a pH less than 6.5. PCO2 26. PO2 281 on ventilator. The analyzer will not print bicarb, base excess her O2 sat because of the profound acidosis. ABG Data ABG results: ABG 08/07/22 14:07 Specimen Type ART Sample Site L Brach pH < 6.50 L* Bicarbonate Actual TNP Total CO2 TNP Base Excess TNP O2 Saturation TNP O2 % 40 ABG pCO2 26.4 L ABG pO2 282 H Respiration Rate 14 O2 Delivery Device Adult Vent Tidal Volume 450 POC PEEP 5 Crit Call To/Read Back Yes Blood Gas Notified Whom DAS Radiography Chest X-Ray - ED: 1 View and Read by ED Physician (Single view portable chest x-ray was independently interpreted by me at 1441. Patient's endotracheal tube is in proper position. The OG will need advanced. There is no evidence of effusion or infiltrate. Cardiac silhouette and size unremarkable. Osseous structures are unremarkable.) Diagnostic Testing: Clinical Impression(s) from Imaging Studies Brain CT 08/07/22 13:41 IMPRESSION: Chronic involutional changes of the brain. Tiny lacunae in the right thalamus. Electronically Signed: Sunil Quintanilla MD at 14:27 EST , Chest X-Ray 08/07/22 14:30 IMPRESSION: The tip of the endotracheal tube is at 2.9 sinus proximal to the edel. The tip of the nasogastric tube is seen just distal to the gastroesophageal junction. Mild increased markings in the medial aspect of the right upper lobe. Aspiration should be ruled out. Electronically Signed: Sunil Quintanilla MD at 15:02 EST , Chest X-Ray 08/07/22 15:14 IMPRESSION: The tip of the right subclavian catheter is at the junction of the superior vena cava and right atrium. Electronically Signed: Sunil Quintanilla MD at 15:24 EST , CT of the head was reviewed while patient was in scanner. There was no evidence of intracranial bleed i.e. subdural, epidural, traumatic or atraumatic subarachnoid hemorrhage or intraparenchymal bleed. Radiologist read a tiny lacunar infarct right thalamus. This would not explain patient's clinical presentation. Chest x-ray #2 after line placement reveals line is in proper position. OG is in the stomach. Endotracheal tube is in proper position. There is no evidence of pneumothorax or effusion. This was independent reviewed interpreted by me at 1522. Rhythm Strip Rhythm Strip: Third-degree heart block Rate: 27 EKG Initial EKG: Attestation: I personally reviewed and interpreted this EKG as follows: Interpretation: Sinus Bradycardia (Ventricular rate is 44. VT interval is prolonged at 210 ms. Cures duration 90 ms. QT is prolonged at 528 ms. [place] is normal. Patient has low voltage. There is nonseptic ST-T wave changes. This may be due to her profound metabolic derangement) Procedures Other Procedures Procedure(s): 1. Patient arrived with no IV access. IO was placed proximal right humerus. This was used for resuscitation. 2 peripheral lines have subsequently been established by nursing staff. 2. Orotracheal intubation by RSI technique. Patient received 20 mg etomidate followed by 50 mg of rocuronium. She was easily orotracheal intubated on first attempt. Condensation noted in the tube and appropriate color change noted with capnometer. Breath sounds were noted bilaterally. There was no sounds over the epigastrium. 3. OG per nursing staff 4. Neal per nursing staff 5. Since patient remains hypotensive in spite of 30 cc/kg bolus central line was placed to administer Levophed. The IO apparently was dislodged in the radiology suite. Patient was prepped draped sterile manner. Everyone in the room was wearing a cap and mask. On first attempt no blood was drawn. On second attempt concerned the subclavian artery was cannulated. Blood gas was sent. Third attempt the vessel was cannulated successfully. Using Seldinger technique triple-lumen was placed without difficulty. Blood was aspirated from all 3 ports. The vessel was cannulated on the way in and not on the way out. Will obtain chest x-ray to confirm reinsertion of OG by me as well as central line. Critical Care Time Critical Care Time: Yes Critical care time (excluding procedures): 75-104 minutes (77), Including time spent: (History, physical, documentation, interpretation of lab results and treatment of the the lab results), Discussing w/Patient &/or Family/Financial Representative (Spoke to by phone. He states his was restless and short of breath at 0200. He does not recall the last time she was up and about. She is not on any herbal supplements.), Discussing w/Consultants (Case discussed with Dr. Eliceo Kee. We will discuss case with hospitalist once more laboratory studies are back.), Arranging Admission or Transfer and Performing Direct Patient Care at Bedside Discharge Plan Dx/Rx/DC Orders Clinical Impression: Metabolic acidosis, Coma, Acute hypotension, Shock, Hypoxia, Heart block AV third degree, Bradycardia, severe sinus, Acute renal failure, Hypothermia, Cerebrovascular accident (CVA) of right thalamus Disposition Disposition: [facility]
[2022-08-07 14:30] LABS: Blood Gas Specimen Type ART; FI02 40; O2 Delivery Device Adult Vent; PEEP 5; PO2 282 mmHG (75-100); RR 14; SITE L Brach; Vt 450; pCO2 26.4 mmHg (35-45)
--- NOTE | 2022-08-07 14:30 | RAD_ITS ---
STUDY: X-RAY CHEST REASON FOR EXAM: Female, 56 years old. Intubation TECHNIQUE: Single AP portable view of the chest. COMPARISON: Comparison is made with prior study dated 03/04/2019. FINDINGS: An endotracheal tube is in situ. The tip is at 2.9 cm proximal to the edel. The tip of the nasogastric tube is in the proximal stomach just distal to the gastroesophageal junction. Mild increased markings in the medial aspect of the right upper lobe. Aspiration should be ruled out. There is no demonstrated pleural abnormality. Normal size heart. Normal mediastinum and yaneli. Normal visualized pulmonary arteries. Normal visualized aortic arch and descending thoracic aorta. Normal visualized thoracic spine. Normal visualized ribs, clavicles, and shoulders. Surgical clips are seen in the right upper quadrant. RAD/Chest 1 View (Portable) IMPRESSION: The tip of the endotracheal tube is at 2.9 sinus proximal to the edel. The tip of the nasogastric tube is seen just distal to the gastroesophageal junction. Mild increased markings in the medial aspect of the right upper lobe. Aspiration should be ruled out. Electronically Signed: Sunil Quintanilla MD at 15:02 EST ,
[2022-08-07 14:31] LABS: pH < 6.50 (7.35-7.45)
[2022-08-07 14:33] LABS: Differential Indicated MANUAL DIFF
--- NOTE | 2022-08-07 14:56 | ED.RN ---
RENEE DAS TO INSERT A CENTRAL LINE AT THIS TIME
[2022-08-07 14:59] LABS: Lymphocyte 46 % (19-41); Monocyte 2 % (0-10); Neutrophil-Segmented 52 % (47-70); Total Cells Counted 100 (MANUAL DIFF)
[2022-08-07 15:00] LABS: Atypical Lymphocyte 2+ %; Macrocytosis 3+; Platelet Estimate ADEQUATE (ADEQ); Red Cell Morphology N CHROM NORMAL (NORM C&C)
[2022-08-07 15:01] LABS: ALB/GLOB Ratio 1.1 RATIO (0.9-2.4); AST(SGOT) 57 U/L (15-37); Alanine Aminotransfer ALT/SGPT 25 U/L (13-56); Alkaline Phosphatase 78 U/L (45-117); Anion Gap 32 (5-15); BUN 44 mg/dL (7-18); BUN/Creat Ratio 7.9 RATIO (10-20); Calcium,Total 10.3 mg/dL (8.5-10.1); Chloride 106 mmol/L (98-107); EST Glomerular Filtration Rate 8 mL/min (>60); Est Glom Filt Rate - Afr Amer 10 mL/min (>60); Estimated Creatinine Clearance 8.66 ml/min; Globulin 2.8 g/dL (2.2-4.2); Glucose 135 mg/dL (74-106); Lactic Acid 15.8 mmol/L (0.4-1.9); Potassium 5.2 mmol/L (3.5-5.1); Protein, Total 5.8 g/dL (6.4-8.2); Sodium Level 141 mmol/L (136-145); Troponin-I HS 22 pg/mL (3.0-54.0)
[2022-08-07 15:02] LABS: Absolute Neutrophil Count 9.7 X10^3/uL (2.0-7.7); Neutrophil # 9.73 X10^3/uL (2.7-7.7)
--- NOTE | 2022-08-07 15:14 | RAD_ITS ---
STUDY: X-RAY CHEST REASON FOR EXAM: Female, 56 years old. CENTRAL LINE -- RECHECK TUBE PLACEMENT TECHNIQUE: Single AP portable view of the chest. COMPARISON: Comparison is made with prior study done earlier in the day. FINDINGS: A right sided subclavian catheter has been placed with the tip at the junction of the superior vena cava and right atrium. The remainder of the examination is unchanged. Surgical clips are seen in the epigastric region RAD/Chest 1 View (Portable) IMPRESSION: The tip of the right subclavian catheter is at the junction of the superior vena cava and right atrium. Electronically Signed: Sunil Quintanilla MD at 15:24 EST ,
[2022-08-07 15:42] LABS: Mucous, Urine 0 SEEN /hpf (<or=2+); Squamous Epithelial Cells - UA 0 SEEN /hpf (5-10)
[2022-08-07 15:50] LABS: Color, Urine Yellow (Yellow); Glucose, Dipstick 250 mg/dl (Normal); Ketone-Dipstick 5 mg/dl (Negative); Leukocyte Esterase-Dipstick 500 /ul (Negative); Nitrite-Dipstick Negative (Negative); Occult Blood-Urine 50 /ul (Negative); Protein-Dipstick 100 mg/dl (Negative); Urine Bilirubin Dipstick Negative (Negative); Urine Clarity Cloudy (Clear); Urine Urobilinogen Normal (Normal)
[2022-08-07 16:05] LABS: Bacteria 1+ /hpf (None Seen); White Blood Cells >100 SEEN /hpf (0-5)
[2022-08-07 16:06] LABS: Red Blood Cells-Urine 0-5 SEEN /hpf (0-5)
[2022-08-07 16:14] LABS: Thyroid Stim Hormone (TSH) 5.35 uIU/mL (0.358-3.74)
[2022-08-07] MEDS: Lactated Ringers 1,000 ML 999 ML IV ×2 (16:19→18:21)
--- NOTE | 2022-08-07 16:26 | ED.RN ---
REPORT CALLED TO ICU AT THIS TIME.
[2022-08-07 16:59] LABS: Amphetamine Urine VISTA NEGATIVE (<1000 ng/mL); Barbiturate Urine VISTA NEGATIVE (< 200 ng/mL); Benzodiazepine Urine VISTA POSITIVE (< 200 ng/mL); Cocaine Urine VISTA NEGATIVE (< 300 ng/mL); Ecstacy Urine VISTA NEGATIVE (< 500 ng/mL); Methadone Urine VISTA NEGATIVE (< 300 ng/mL); PCP Urine VISTA NEGATIVE (< 25 ng/mL); THC Urine VISTA NEGATIVE (< 50 ng/mL); Vista UDS pH Range 5
[2022-08-07 17:00] LABS: Osmolality, Serum 331 mOsm/KG (275-295)
[2022-08-07 17:10] LABS: Base Excess < -30 mmol/L (-2 to +2); Bicarbonate 2.8 mmol/L (22-26); Blood Gas Specimen Type ART; FI02 40; Mode PRVC; O2 Delivery Device Adult Vent; PEEP 5; PO2 267 mmHG (75-100); RR 14; SITE Central Line; SO2 98 % (95-99); Total Carbon Dioxide < 5 mmol/L; Vt 450; pH 6.52 (7.35-7.45)
--- NOTE | 2022-08-07 17:20 | CON.PCM.CC_ITS ---
Assessment & Plan Assessment/Plan (1) Shock: (2) Hypoxia: (3) Hypothermia: PLAN: Plan RECOMMENDATIONS: 1. Continue Levophed. Add vasopressin if necessary. 2. Aggressive fluid resuscitation 3. Continue bicarbonate drip 4. Obtain ABG in 3 hours 5. Continue mechanical ventilation and rewarming 6. Wean supplemental oxygen as tolerated 7. Repeat labs at 8 PM 8. Hold on tube feeds at this time 9. Repeat chest x-ray in a.m. IMPRESSIONS: 1. Shock Unclear etiology. Patient appears to be significantly volume depleted on physical exam. Patient will receive aggressive fluid resuscitation. Patient appears to have an element of anion gap but none anion gap metabolic acidosis with a lactate of 15. Unclear if this is secondary to delayed presentation. Patient is on Jardiance, so an element of DKA could be suspected. Patient does have a leukocytosis and is hypothermic, so empiric antibiotics would be moon mmended. Patient does have a UA suggestive of a urinary tract infection. Empiric antibiotics will be ordered. 2. Lactic acidosis Patient significantly hypoxic and hypotensive on presentation. Patient also on significant doses of metformin and lisinopril in the setting of acute kidney injury. These will be held. Continue to monitor lactic acidosis. Cannot exclude an element of bowel ischemia, but recent endoscopies did not show any acute abnormalities per the . 3. Acute on chronic kidney disease stage IIIa Clinical suspicion for worsening renal function secondary to problem #1. Will order renal ultrasound for evaluation of postobstructive uropathy. Patient may require hemodialysis depending response to fluid resuscitation. Anticipate patient will require significant potassium repletion once acidosis is corrected. We will recheck labs this evening at 8 PM. 4. Diabetes mellitus type 2/seizure disorder/hypertension/delayed presentation Complicates care, management, recovery and prognosis. Continue with sliding scale insulin for now. Hold all antihypertensive medications secondary to problems 1 and 3. Okay to continue with Keppra. Lamictal and Topamax secondary to headaches. These will be held TIME: 45 minutes critical care time spent addressing patient's shock, lactic acidosis, acute kidney injury, diabetes mellitus, review of all data and collaboration with care team HPI Consult Data Date of Consult: 08/07/22 HPI Narrative Reason for Consultation: Shock HPI Narrative: TRUE AYALA is a 56 F, with past medical history listed below, who presents to [facility] on 08/07/2022 secondary to decreased responsiveness. Patient reportedly was last known well on the day prior to presentation. Patient presented with a GCS of 6. Patient reportedly had a blood sugar of 184 per squad. Patient has a history of type 2 diabetes mellitus, hypertension and hypothyroidism. Patient reportedly recently had an upper and lower endoscopy and was receiving prep. No significant findings outside of a polyp were noted. Patient reportedly is extremely anxious at baseline per the . Patient reportedly was found in the bed and not exposed to the elements. In the ER, patient was noted to have a temperature of 83.8 ?F, hypoxic and hypotensive at 70/37. Patient did not have a loss of pulse, but was extremely bradycardic with a heart rate as low as 40 bpm and noted to have a third-degree heart block. Patient was intubated using etomidate and rocuronium without complication. Patient also had a right subclavian central line and an OG placed. Laboratory work-up showed a white blood cell count of 18.7, hemoglobin of 9.3 and platelet count of 416. INR was elevated at 1.8. Patient was noted to have a potassium of 5.2, bicarb of 3, BUN of 44 and creatinine of 5.6. Liver enzymes were relatively normal, but lactate was noted to be 15.8. ABG reported a pH of less than 6.5 with a PCO2 of 26 and a PO2 of 281 while on the ventilator. CT of the head was normal, but chest x-ray showed endotracheal tube in good position with a high NG tube and increased markings in the medial aspect of the right upper lobe. Did discuss with the . Patient does have a history of chronic kidney disease in the past, but has never required dialysis. Patient does have a history of a CVA, but the is not aware of any previous heart block. Patient reportedly was not taking much p.o. secondary to her recent endoscopies. Patient's is not able to say why the endoscopies were being completed. Most of the patient's history is at the [facility]. There is no thought of ingestion or suicidal ideation per the . Patient had not reported any dysuria. [facility] Home Medications atorvastatin 20 mg tablet 20 mg PO QHS CHOLESTEROL 07/04/18 [History Last Taken 08/05/22] insulin aspart U-100 100 unit/mL (3 mL) subcutaneous pen (Novolog FlexPen U-100 Insulin aspart) 30 units subcut BIDCM DM 07/04/18 [History Last Taken Unknown] metformin 1,000 mg tablet 1,000 mg PO BIDCM DM 07/04/18 [History Last Taken 08/06/22] venlafaxine 150 mg capsule,extended release 24 hr 150 mg PO DAILY . 07/04/18 [History Last Taken 08/06/22] amlodipine 10 mg tablet 10 mg PO DAILY . 08/07/22 [History Last Taken 08/06/22] cholecalciferol (vitamin D3) 25 mcg (1,000 unit) tablet 50 mcg PO DAILY SUPPLEMENT 08/07/22 [History Last Taken 08/05/22] cyanocobalamin (vitamin B-12) 1,000 mcg capsule 1,000 mcg PO DAILY SUPPLEMENT 08/07/22 [History Last Taken 08/06/22] empagliflozin 10 mg tablet (Jardiance) 10 mg PO DAILY . 08/07/22 [History Last Taken 08/06/22] hydrochlorothiazide 25 mg tablet 25 mg PO DAILY . 08/07/22 [History Last Taken 08/06/22] lamotrigine 25 mg tablet 25 mg PO DAILY . 08/07/22 [History Last Taken 08/06/22] levetiracetam 500 mg tablet 500 mg PO BID . 08/07/22 [History Last Taken 08/06/22] hsabwf-[id number]-brdthfn 36,000-114,000-180,000 unit capsule,delay rel (Creon) 1 cap PO TIDCM . 08/07/22 [History Last Taken 08/06/22] lisinopril 40 mg tablet 40 mg PO DAILY HTN 08/07/22 [History Last Taken 08/06/22] omeprazole 20 mg capsule,delayed release 20 mg PO DAILY GERD 08/07/22 [History Last Taken 08/06/22] topiramate 50 mg tablet 50 mg PO DAILY . 08/07/22 [History Last Taken 08/05/22] trazodone 50 mg tablet 50 mg PO DAILY SLEEP 08/07/22 [History Last Taken 08/05/22] Allergy/AdvReac Type Severity Reaction Status Date / Time No Known Allergies Allergy Verified 06/25/20 15:08 Social History household members: spouse Smoking Status: Never smoker alcohol intake: never substance use type: does not use ROS Review of Systems ROS Unobtainable: due to endotracheal tube and due to mental status Physical Exam Const Constitutional Narrative: Good vent synchrony. Appears pale. General Appearance: patient mechanically ventilated Orientation / Consciousness: obtunded HEENT normocephalic and head/scalp atraumatic HEENT Narrative: Significantly dry mucous membranes Eyes PERRL and conjunctivae normal Neck no lymphadenopathy and supple Chest inspection of chest normal Resp Resp Narrative: Coarse breath sounds Auscultation: Negative for rales, rhonchi or wheezes Cardio regular rhythm, S1 normal heart sound, S2 normal heart sound, no murmurs, no rub and no gallops Rate: bradycardia GI normal to inspection, nondistended, normoactive bowel sounds Extremity no clubbing, cyanosis or edema Skin no rashes or lesions noted Neuro Neuro Narrative: Obtunded. Little to no spontaneous movement Psych Mood & Affect: flat affect Medical Records Data Attestation: I reviewed the patient's medical records Lab / Micro Data Attestation: I reviewed the patient's lab results. Result Diagrams: 08/07/22 13:30 08/07/22 13:30 Labs: Laboratory Results - last 24 hr 08/07/22 13:30: WBC 18.7 H, RBC 3.40 L, Hgb 9.3 L, Hct 35.9 L, MCV 105.6 H, MCH 27.4, MCHC 25.9 L, RDW Std Deviation 56.8 H, RDW Coeff of Jacqueline 14.5, Plt Count 416, MPV 10.4, Neut % (Auto) Not Reportable, Absolute Neuts (auto) 9.7 H, Absolute Lymphs (auto) 8.60 H, Total Counted 100, Neutrophils % (Manual) 52, Lymphocytes % (Manual) 46 H, Monocytes % (Manual) 2, Diff Path Review May foll, Atypical Lymphocytes 2+, Platelet Estimate ADEQUATE, RBC Morphology N CHROM, Macrocytosis 3+ 08/07/22 13:30: PT 20.3 H, INR 1.8, APTT 81.3 H 08/07/22 13:30: Sodium 141, Potassium 5.2 H, Chloride 106, Carbon Dioxide 3.0 L* , Anion Gap 32 H, BUN 44 H, Creatinine 5.60 H, Estim Creat Clear Calc 8.66, Est GFR (MDRD) Af Amer 10 L, Est GFR (MDRD) Non-Af 8 L, BUN/Creatinine Ratio 7.9 L, Glucose 135 H, Calcium 10.3 H, Total Bilirubin 0.20, AST 57 H, ALT 25, Alkaline Phosphatase 78, Troponin I High Sens 22, Total Protein 5.8 L, Albumin 3.0 L, Globulin 2.8, Albumin/Globulin Ratio 1.1 08/07/22 13:30: Lactic Acid 15.8 H* 08/07/22 15:30: Urine Color Yellow, Urine Clarity Cloudy, Urine pH 5.0, Ur Spe cific Leonard 1.020, Urine Protein 100 H, Urine Glucose (UA) 250 H, Urine Ketones 5 H, Urine Occult Blood 50 H, Urine Nitrite Negative, Urine Bilirubin Negative, Urine Urobilinogen Normal, Ur Leukocyte Esterase 500 H, Urine RBC 0-5 SEEN, Urine WBC >100 SEEN, Ur Squamous Epith Cells 0 SEEN, Urine Bacteria 1+, Urine Mucus 0 SEEN 08/07/22 15:30: Urine Opiates Screen NEGATIVE, Urine Methadone Screen NEGATIVE, Ur Barbiturates Screen NEGATIVE, Ur Phencyclidine Scrn NEGATIVE, Ur Amphetamines Screen NEGATIVE, MDMA (Ecstasy) Screen NEGATIVE, U Benzodiazepines Scrn POSITIVE H, Urine Cocaine Screen NEGATIVE, U Cannabinoids Screen NEGATIVE, Ur Drug Screen Comment 08/07/22 15:30: Blood Type Cancelled, Antibody Screen Cancelled 08/07/22 15:30: TSH 5.35 H 08/07/22 15:45: Serum Osmolality 331 H 08/07/22 15:56: Blood Type O NEGATIVE, Antibody Screen NEGATIVE ABG Data ABG results: ABG 08/07/22 08/07/22 14:07 15:06 Specimen Type ART ART Sample Site L Brach Central Line pH < 6.50 L* 6.52 L* Bicarbonate Actual TNP 2.8 L Total CO2 TNP < 5 Base Excess TNP < -30 L O2 Saturation TNP 98 O2 % 40 40 ABG pCO2 26.4 L 34.0 L ABG pO2 282 H 267 H Respiration Rate 14 14 O2 Delivery Device Adult Vent Adult Vent Vent Mode PRVC Tidal Volume 450 450 POC PEEP 5 5 Crit Call To/Read Back Yes Yes Blood Gas Notified Whom DASMaci das Attestation: I personally reviewed and interpreted this ABG as follows: (Severe metabolic acidosis with increased AA gradient) Rhythm Strip Rhythm Strip: Third-degree heart block Rate: [address] 08/07/22 13:41 IMPRESSION: Chronic involutional changes of the brain. Tiny lacunae in the right thalamus. Electronically Signed: Sunil Quintanilla MD at 14:27 EST , Chest X-Ray 08/07/22 14:30 IMPRESSION: The tip of the endotracheal tube is at 2.9 sinus proximal to the edel. The tip of the nasogastric tube is seen just distal to the gastroesophageal junction. Mild increased markings in the medial aspect of the right upper lobe. Aspiration should be ruled out. Electronically Signed: Sunil Quintanilla MD at 15:02 EST , Chest X-Ray 08/07/22 15:14 IMPRESSION: The tip of the right subclavian catheter is at the junction of the superior vena cava and right atrium. Electronically Signed: Sunil Quintanilla MD at 15:24 EST ,
--- NOTE | 2022-08-07 17:29 | PCM.HP.STD ---
HPI - General General Date of Admission: 08/07/22 Date of Service: 08/07/22 Chief Complaint: Unresponsiveness - 1 day HPI Narrative TRUE AYALA, is a 56 F who presents with the above. History was taken from the patient's at the bedside. Patient was found to be restless this morning and not responding appropriately according to the . She recently had a colonoscopy 3 days prior. The EMS found patient not responsive but she had a pulse. Her blood sugar was 184. Initial blood pressure 67/47, heart rate 40, respiratory rate 14, temperature 83.8 F, oxygen sat was 100% on mechanical ventilator. Admitting blood work showed WBC 18.7, with neutrophilia, hemoglobin 9.3, down from 10.7, platelet count 416, INR 1.8, pH 6.52, bicarbonate 2.8, PCO2 34, sodium 141, potassium 5.2, chloride 106, bicarbonate 30, BUN 44, creatinine 5.60, anion gap 32, glucose 135, serum osmolarity 331, lactic acid 15.8, calcium 10.3, total bilirubin 0.2, AST 87, ALT 25, ALP 78, troponin 22, albumin 3.0. UA is cloudy, nitrite negative, leukocyte esterase 500, WBC more than 100, bacteria 1+. Urine tox positive for benzodiazepine. Brain CT showed chronic involutional changes of the brain. Tiny lacunae in the right thalamus. Chest x-ray showed increased markings in the right upper lobe [facility] Home Medications atorvastatin 20 mg tablet 20 mg PO QHS CHOLESTEROL 07/04/18 [History Last Taken 08/05/22] insulin aspart U-100 100 unit/mL (3 mL) subcutaneous pen (Novolog FlexPen U-100 Insulin aspart) 30 units subcut BIDCM DM 07/04/18 [History Last Taken Unknown] metformin 1,000 mg tablet 1,000 mg PO BIDCM DM 07/04/18 [History Last Taken 08/06/22] venlafaxine 150 mg capsule,extended release 24 hr 150 mg PO DAILY . 07/04/18 [History Last Taken 08/06/22] amlodipine 10 mg tablet 10 mg PO DAILY . 08/07/22 [History Last Taken 08/06/22] cholecalciferol (vitamin D3) 25 mcg (1,000 unit) tablet 50 mcg PO DAILY SUPPLEMENT 08/07/22 [History Last Taken 08/05/22] cyanocobalamin (vitamin B-12) 1,000 mcg capsule 1,000 mcg PO DAILY SUPPLEMENT 08/07/22 [History Last Taken 08/06/22] empagliflozin 10 mg tablet (Jardiance) 10 mg PO DAILY . 08/07/22 [History Last Taken 08/06/22] hydrochlorothiazide 25 mg tablet 25 mg PO DAILY . 08/07/22 [History Last Taken 08/06/22] lamotrigine 25 mg tablet 25 mg PO DAILY . 08/07/22 [History Last Taken 08/06/22] levetiracetam 500 mg tablet 500 mg PO BID . 08/07/22 [History Last Taken 08/06/22] rxddyl-kawthopz-skwclyn 36,000-114,000-180,000 unit capsule,delay rel (Creon) 1 cap PO TIDCM . 08/07/22 [History Last Taken 08/06/22] lisinopril 40 mg tablet 40 mg PO DAILY HTN 08/07/22 [History Last Taken 08/06/22] omeprazole 20 mg capsule,delayed release 20 mg PO DAILY GERD 08/07/22 [History Last Taken 08/06/22] topiramate 50 mg tablet 50 mg PO DAILY . 08/07/22 [History Last Taken 08/05/22] trazodone 50 mg tablet 50 mg PO DAILY SLEEP 08/07/22 [History Last Taken 08/05/22] Allergy/AdvReac Type Severity Reaction Status Date / Time No Known Allergies Allergy Verified 06/25/20 15:08 Family History unable to obtain unable to obtain Surgical History unable to obtain unable to obtain Social History (Updated 08/07/22 @ 17:[address] Irma Isaacs MD) household members: spouse Smoking Status: Never smoker alcohol intake: never substance use type: does not use ROS Review of Systems ROS Unobtainable: due to encephalopathy and due to mental status Vital Signs Vital Signs Vital Signs: 08/07/22 13:43 08/07/22 13:58 08/07/22 13:32 Temperature 83.8 F L Temperature Source Temporal Pulse Rate 20 L 45 L Respiratory Rate 12 22 H Respiratory Depth Shallow Respiratory Pattern Irregular Blood Pressure 70/37 L Blood Pressure Mean 48 Pulse Ox 93 100 Oxygen Delivery Method Non-Rebreather Mechanical Ventilator Mechanical Ventilator 08/07/22 13:51 08/07/22 13:52 08/07/22 13:56 Temperature Temperature Source Pulse Rate 50 L 45 L 44 L Respiratory Rate 45 H 18 16 Respiratory Depth Respiratory Pattern Blood Pressure 67/47 L 68/33 L Blood Pressure Mean 55 45 Pulse Ox 94 100 Oxygen Delivery Method 08/07/22 13:58 08/07/22 13:59 08/07/22 14:00 Temperature Temperature Source Pulse Rate 45 L 54 L 45 L Respiratory Rate 21 H 19 H 12 Respiratory Depth Respiratory Pattern Blood Pressure 70/37 L Blood Pressure Mean 49 Pulse Ox 100 100 Oxygen Delivery Method 08/07/22 14:06 08/07/22 14:21 08/07/22 13:38 Temperature Temperature Source Pulse Rate 44 L 40 L Respiratory Rate 23 H 14 Respiratory Depth Respiratory Pattern Blood Pressure 76/39 L 69/28 L Blood Pressure Mean 52 42 Pulse Ox 100 100 Oxygen Delivery Method 08/07/22 14:24 08/07/22 14:25 08/07/22 14:30 Temperature Temperature Source Pulse Rate 58 L 57 L 55 L Respiratory Rate 17 16 14 Respiratory Depth Respiratory Pattern Blood Pressure 73/57 L Blood Pressure Mean 63 Pulse Ox 100 100 Oxygen Delivery Method 08/07/22 14:31 08/07/22 14:32 08/07/22 14:33 Temperature Temperature Source Pulse Rate 54 L 55 L 54 L Respiratory Rate 16 12 13 Respiratory Depth Respiratory Pattern Blood Pressure 70/32 L 69/33 L Blood Pressure Mean 45 46 Pulse Ox 100 100 100 Oxygen Delivery Method 08/07/22 14:36 08/07/22 14:40 08/07/22 14:41 Temperature Temperature Source Pulse Rate 54 L 48 L 48 L Respiratory Rate 19 H 17 22 H Respiratory Depth Respiratory Pattern Blood Pressure 57/33 L 55/39 L Blood Pressure Mean 42 47 Pulse Ox 100 100 100 Oxygen Delivery Method 08/07/22 14:46 08/07/22 14:49 08/07/22 14:50 Temperature Temperature Source Pulse Rate 47 L 46 L 46 L Respiratory Rate 20 H Respiratory Depth Respiratory Pattern Blood Pressure 65/39 L 65/35 L Blood Pressure Mean 49 46 Pulse Ox 100 100 100 Oxygen Delivery Method 08/07/22 14:51 08/07/22 14:56 08/07/22 14:57 Temperature Temperature Source Pulse Rate 46 L 66 46 L Respiratory Rate 19 H 18 Respiratory Depth Respiratory Pattern Blood Pressure 67/34 L 70/36 L 74/31 L Blood Pressure Mean 45 48 46 Pulse Ox 100 100 100 Oxygen Delivery Method 08/07/22 15:00 08/07/22 15:01 08/07/22 15:24 Temperature Temperature Source Pulse Rate 46 L 43 L 44 L Respiratory Rate 19 H 19 H 21 H Respiratory Depth Respiratory Pattern Blood Pressure 71/34 L 65/28 L Blood Pressure Mean 46 40 Pulse Ox 100 100 94 Oxygen Delivery Method 08/07/22 15:34 08/07/22 15:02 08/07/22 15:05 Temperature Temperature Source Pulse Rate 44 L 45 L 45 L Respiratory Rate 20 H 15 16 Respiratory Depth Respiratory Pattern Blood Pressure 66/29 L 70/35 L Blood Pressure Mean 41 47 Pulse Ox 95 100 100 Oxygen Delivery Method 08/07/22 15:10 08/07/22 15:11 08/07/22 15:20 Temperature Temperature Source Pulse Rate 45 L 44 L Respiratory Rate 18 19 H Respiratory Depth Respiratory Pattern Blood Pressure 70/38 L Blood Pressure Mean 50 Pulse Ox 100 100 Oxygen Delivery Method 08/07/22 15:21 08/07/22 15:22 08/07/22 15:26 Temperature Temperature Source Pulse Rate 44 L 57 L 44 L Respiratory Rate 17 18 16 Respiratory Depth Respiratory Pattern Blood Pressure 65/33 L 65/28 L 64/33 L Blood Pressure Mean 44 40 44 Pulse Ox Oxygen Delivery Method 08/07/22 15:30 08/07/22 15:47 08/07/22 15:49 Temperature 86.3 F L Temperature Source Core Pulse Rate 44 L 53 L 61 Respiratory Rate 14 18 17 Respiratory Depth Respiratory Pattern Blood Pressure 74/33 L 90/38 L Blood Pressure Mean 46 55 Pulse Ox 96 95 Oxygen Delivery Method Mechanical Ventilator 08/07/22 16:04 08/07/22 15:31 08/07/22 15:36 Temperature Temperature Source Pulse Rate 59 L 44 L 44 L Respiratory Rate 15 13 21 H Respiratory Depth Respiratory Pattern Blood Pressure 90/39 L 66/29 L 69/29 L Blood Pressure Mean 56 42 42 Pulse Ox 95 Oxygen Delivery Method 08/07/22 15:40 08/07/22 15:41 08/07/22 15:46 Temperature Temperature Source Pulse Rate 46 L 46 L 51 L Respiratory Rate 13 26 H 19 H Respiratory Depth Respiratory Pattern Blood Pressure 73/34 L 74/33 L Blood Pressure Mean 47 47 Pulse Ox Oxygen Delivery Method 08/07/22 15:48 08/07/22 15:50 08/07/22 15:51 Temperature Temperature Source Pulse Rate 58 L 73 61 Respiratory Rate 17 18 17 Respiratory Depth Respiratory Pattern Blood Pressure 90/38 L 92/42 L Blood Pressure Mean 55 59 Pulse Ox Oxygen Delivery Method 08/07/22 15:56 08/07/22 16:00 08/07/22 16:01 Temperature Temperature Source Pulse Rate 60 59 L 59 L Respiratory Rate 15 15 25 H Respiratory Depth Respiratory Pattern Blood Pressure 90/40 L 90/39 L Blood Pressure Mean 56 56 Pulse Ox Oxygen Delivery Method 08/07/22 16:18 08/07/22 13:47 08/07/22 16:33 Temperature 86.1 F L 86.2 F L Temperature Source Core Core Pulse Rate 64 50 L 59 L Respiratory Rate 16 18 16 Respiratory Depth Respiratory Pattern Blood Pressure 93/42 L 67/47 L 106/45 L Blood Pressure Mean 59 53 65 Pulse Ox 95 95 95 Oxygen Delivery Method Mechanical Ventilator Mechanical Ventilator 08/07/22 16:06 08/07/22 16:10 08/07/22 16:11 Temperature Temperature Source Pulse Rate 59 L 59 L 59 L Respiratory Rate 16 18 15 Respiratory Depth Respiratory Pattern Blood Pressure 86/39 L 92/41 L Blood Pressure Mean 55 57 Pulse Ox Oxygen Delivery Method 08/07/22 16:16 08/07/22 16:20 08/07/22 16:21 Temperature Temperature Source Pulse Rate 59 L 59 L 59 L Respiratory Rate 17 18 16 Respiratory Depth Respiratory Pattern Blood Pressure 93/42 L 101/43 L Blood Pressure Mean 58 61 Pulse Ox Oxygen Delivery Method 08/07/22 16:26 08/07/22 16:30 08/07/22 16:31 Temperature Temperature Source Pulse Rate 59 L 59 L 59 L Respiratory Rate 19 H 19 H 16 Respiratory Depth Respiratory Pattern Blood Pressure 105/42 L 106/45 L Blood Pressure Mean 62 64 Pulse Ox 95 95 95 Oxygen Delivery Method Weight Weight: 68 kg Body Mass Index (BMI) 27.3 Physical Exam Narrative Physical exam: General: Unresponsive, intubated, on mechanical ventilator, very cold to touch, on bear-hugger HEENT: Atraumatic Oral: Moist Mucosa Neck: Supple Lungs: Diminished to auscultation Cardiovascular: HS I+II, regular, no murmurs Abdomen: Bowel Sounds Present, Soft, Non Tender Extremities: No edema Skin: No rashes, No breakdown Neurological: Grossly intact Psych/Mental Status: Appropriate Results Lab / Micro Data Result Diagrams: 08/07/22 13:30 08/07/22 13:30 Labs: Laboratory Results - last 24 hr 08/07/22 13:30: WBC 18.7 H, RBC 3.40 L, Hgb 9.3 L, Hct 35.9 L, MCV 105.6 H, MCH 27.4, MCHC 25.9 L, RDW Std Deviation 56.8 H, RDW Coeff of Jacqueline 14.5, Plt Count 416, MPV 10.4, Neut % (Auto) Not Reportable, Absolute Neuts (auto) 9.7 H, Absolute Lymphs (auto) 8.60 H, Total Counted 100, Neutrophils % (Manual) 52, Lymphocytes % (Manual) 46 H, Monocytes % (Manual) 2, Diff Path Review May foll, Atypical Lymphocytes 2+, Platelet Estimate ADEQUATE, RBC Morphology N CHROM, Macrocytosis 3+ 08/07/22 13:30: PT 20.3 H, INR 1.8, APTT 81.3 H 08/07/22 13:30: Sodium 141, Potassium 5.2 H, Chloride 106, Carbon Dioxide 3.0 L*, Anion Gap 32 H, BUN 44 H, Creatinine 5.60 H, Estim Creat Clear Calc 8.66, Est GFR (MDRD) Af Amer 10 L, Est GFR (MDRD) Non-Af 8 L, BUN/Creatinine Ratio 7.9 L, Glucose 135 H, Calcium 10.3 H, Total Bilirubin 0.20, AST 57 H, ALT 25, Alkaline Phosphatase 78, Troponin I High Sens 22, Total Protein 5.8 L, Albumin 3.0 L, Globulin 2.8, Albumin/Globulin Ratio 1.1 08/07/22 13:30: Lactic Acid 15.8 H* 08/07/22 15:30: Urine Color Yellow, Urine Clarity Cloudy, Urine pH 5.0, Ur Specific [place] 1.020, Urine Protein 100 H, Urine Glucose (UA) 250 H, Urine Ketones 5 H, Urine Occult Blood 50 H, Urine Nitrite Negative, Urine Bilirubin Negative, Urine Urobilinogen Normal, Ur Leukocyte Esterase 500 H, Urine RBC 0-5 SEEN, Urine WBC >100 SEEN, Ur Squamous Epith Cells 0 SEEN, Urine Bacteria 1+, Urine Mucus 0 SEEN 08/07/22 15:30: Urine Opiates Screen NEGATIVE, Urine Methadone Screen NEGATIVE, Ur Barbiturates Screen NEGATIVE, Ur Phencyclidine Scrn NEGATIVE, Ur Amphetamines Screen NEGATIVE, MDMA (Ecstasy) Screen NEGATIVE, U Benzodiazepines Scrn POSITIVE H, Urine Cocaine Screen NEGATIVE, U Cannabinoids Screen NEGATIVE, Ur Drug Screen Comment 08/07/22 15:30: Blood Type Cancelled, Antibody Screen Cancelled 08/07/22 15:30: TSH 5.35 H 08/07/22 15:45: Serum Osmolality 331 H 08/07/22 15:56: Blood Type O NEGATIVE, Antibody Screen NEGATIVE ABG Data ABG results: ABG 08/07/22 08/07/22 14:07 15:06 Specimen Type ART ART Sample Site L Brach Central Line pH < 6.50 L* 6.52 L* Bicarbonate Actual TNP 2.8 L Total CO2 TNP < 5 Base Excess TNP < -30 L O2 Saturation TNP 98 O2 % 40 40 ABG pCO2 26.4 L 34.0 L ABG pO2 282 H 267 H Respiration Rate 14 14 O2 Delivery Device Adult Vent Adult Vent Vent Mode PRVC Tidal Volume 450 450 POC PEEP 5 5 Crit Call To/Read Back Yes Yes Blood Gas Notified Whom DAS das Rhythm Strip Rhythm Strip: Third-degree heart block Rate: [address] 08/07/22 13:41 IMPRESSION: Chronic involutional changes of the brain. Tiny lacunae in the right thalamus. Electronically Signed: Sunil Quintanilla MD at 14:27 EST , Chest X-Ray 08/07/22 14:30 IMPRESSION: The tip of the endotracheal tube is at 2.9 sinus proximal to the edel. The tip of the nasogastric tube is seen just distal to the gastroesophageal junction. Mild increased markings in the medial aspect of the right upper lobe. Aspiration should be ruled out. Electronically Signed: Sunil Quintanilla MD at 15:02 EST , Chest X-Ray 08/07/22 15:14 IMPRESSION: The tip of the right subclavian catheter is at the junction of the superior vena cava and right atrium. Electronically Signed: Sunil Quintanilla MD at 15:24 EST Reading Location ID and State: [facility] / [place] , Service support , Assessment & Plan Assessment/Plan (1) Anxiety and depression: (2) Hypothyroidism: QUALIFIERS: Hypothyroidism type: unspecified Qualified Code(s): E03.9 - Hypothyroidism, unspecified (3) Elevated BP without diagnosis of hypertension: (4) Shock: (5) Metabolic acidosis: (6) Coma: (7) GERD (gastroesophageal reflux disease): QUALIFIERS: Esophagitis presence: esophagitis presence not specified Qualified Code(s): K21.9 - Gastro-esophageal reflux disease without esophagitis PLAN: Plan 1. Acute metabolic encephalopathy, unclear etiology, status post intubation Patient is currently on mechanical ventilator Safety Engineer consulted, will be admitted to ICU Follow-up on intensive recommendations 2. Shock, unclear etiology, probably pneumonia, probable UTI Patient presented hypothermic, hypotensive, chest x-ray showed Started on Levophed, will continue Continue on IV Zosyn and vancomycin broadly 3. Acute severe metabolic acidosis, unclear etiology for now, Patient presented also with lactic acidosis Continue on bicarb drip, repeat ABG later 4. MARY on CKD, pre-renal, likely secondary to #1 and 2 Admitting Cr 5.60, previous Cr 1.57 Hold HCTZ, amlodipine, lisinopril Continue IV fluids, repeat labs in am 5. Lactic acidosis likely secondary to #1, and #2 Patient was also on metformin Continue with aggressive resuscitation, trend labs 6. History of type II DM, hold antidiabetic medication - metformin, Continue with blood glucose every 6 with insulin sliding scale 7. Seizure disorder, continue on Keppra IV twice daily Hold lamotrigine 8. Anxiety/depression, hold Effexor, trazodone, topiramate 9. DVT PPx- Heparin SC Charges/Coding Addendum Addendum: Total time spent: 75 minutes of which more > 50% was spent in reviewing patient's chart, laboratory investigations, imaging, discussing with emergency physician and calibration tester, taking history and physical examining patient and going over plan of care with patient and at the bedside. Visit Charges Inpatient E&M: 51654 Init Hosp L3
[2022-08-07 18:04] LABS: Reflex Lactate? Y
--- NOTE | 2022-08-07 18:05 | CT_ITS ---
EXAM: CT HEAD WITHOUT INTRAVENOUS CONTRAST CLINICAL INDICATION: blown pupils TECHNIQUE: Multiple axial images were obtained of the head without intravenous contrast. This CT exam was performed using one or more of the following dose reduction techniques: automated exposure control, adjustment of the mA and/or kV according to patient size, and/or use of iterative reconstruction technique. This report was created using [email or web address] report generation technology. RADIATION DOSE: CTDIvol = 44.99 mGy, DLP = 812.98 mGy-cm. COMPARISON: 08/07/2022 at 2:16 PM. FINDINGS: BRAIN AND EXTRA-AXIAL SPACES: Mild generalized atrophy. Mild low density bilaterally in the deep white matter. No intra- or extra-axial hemorrhage. No evidence of acute infarct. No intracranial mass or mass effect. There is preservation of the aly/white matter interface. Posterior fossa structures are unremarkable. No hydrocephalus. Basal cisterns are patent. BONES/JOINTS: Unremarkable. No discrete lytic or blastic abnormalities. SINUSES: Unremarkable as visualized. Clear. MASTOID AIR CELLS: Unremarkable. Clear. ORBITS: Visualized globes, extraocular muscles, optic nerves and retrobulbar fat appear unremarkable. CT/Brain/Head without Contrast IMPRESSION: Mild generalized atrophy. Mild low density bilaterally in the deep white matter. This likely represents chronic small vessel ischemic changes in the deep white matter. No significant change since previous exam. Electronically Signed: Quang Laurent MD at 18:31 EST ,
[2022-08-07] MEDS: Vancomycin IV 1,000 MG/200 ML BAG 200 MG IV (18:21)
--- NOTE | 2022-08-07 18:27 | NURSING ---
Fluid warmer started temp 86.7 degrees core
[2022-08-07 18:34] LABS: Troponin-I HS 36 pg/mL (3.0-54.0)
[2022-08-07 18:47] LABS: Lactic Acid 19.6 mmol/L (0.4-1.9)
[2022-08-07] MEDS: Insulin Lispro 100 UNIT/ML INSULN.PEN SC (19:20)
[2022-08-07 19:30] LABS: Bedside Glucose 222 mg/dL (74-106)
--- NOTE | 2022-08-07 20:26 | CPS ---
Critical ABG values, Dr. Kee notified.
--- NOTE | 2022-08-07 20:33 | PCM.RX.CS ---
Consult Pharmacy has been consulted to manage selected antiobiotic: Vancomycin Type of Consult: New start Suspected Infection: Pneumonia Labs: Sodium 141 mmol/L (136-145) 08/07/22 13:30 Potassium 5.2 mmol/L (3.5-5.1) H 08/07/22 13:30 Chloride 106 mmol/L (98-107) 08/07/22 13:30 Carbon Dioxide 3.0 mmol/L (21.0-32.0) L* 08/07/22 13:30 Anion Gap 32 (5-15) H 08/07/22 13:30 BUN 44 mg/dL (7-18) H 08/07/22 13:30 Creatinine 5.60 mg/dL (0.55-1.02) H 08/07/22 13:30 Est GFR (MDRD) Af Amer 10 mL/min (>60) L 08/07/22 13:30 Est GFR (MDRD) Non-Af 8 mL/min (>60) L 08/07/22 13:30 BUN/Creatinine Ratio 7.9 RATIO (10-20) L 08/07/22 13:30 Glucose 135 mg/dL (74-106) H 08/07/22 13:30 Goal Trough: 15-20 mcg/mL Pharmacy Plan for Drug Dosing: NEW START IV VANCOMYCIN Consulting Physician: Dr. Isaacs Indication: Pneumonia Goal Trough: 15-20 SrCr: 5.60 CrCl: 8.66 Comments: pt received a 1000mg dose on 08/07/22 at 1821 Vancomycin Dose: based on pts renal function, recommend checking a random level on 08/08/22 prior to further dosing Pending Level: 08/08/22 at 1500 Pharmacy Service will continue to monitor and adjust dosing as required. Follow-Up Labs: Trough Vancomycin - 08/08/22 at 1500
[2022-08-07 20:36] LABS: Allen Test POS; Blood Gas Specimen Type ART; Mode A-C; SITE R RADIAL
[2022-08-07 20:37] LABS: FI02 30; O2 Delivery Device ADULT VENTILATOR; PEEP 5; RR 14
[2022-08-07 20:39] LABS: Base Excess < -30 mmol/L (-2 to +2); Bicarbonate 2.6 mmol/L (22-26); PO2 142 mmHG (75-100); pH 6.68 (7.35-7.45)
[2022-08-07 20:40] LABS: SO2 94 % (95-99)
[2022-08-07] MEDS: 0.9% Normal Saline 1,000 ML 75 ML IV (20:44)
[2022-08-07] MEDS: Ceftriaxone 1 GM/50 ML BAG IV (20:45)
[2022-08-07 21:05] LABS: Absolute Lymphocyte Count 7.77 X10^3/uL (0.83-4.51); Absolute Neutrophil Count 15.4 X10^3/uL (2.0-7.7); Basophil# 0.15 X10^3/uL; Basophil% 0.6 % (0-1); Eosinophil# 0.06 X10^3/uL; Eosinophils% 0.2 % (0-5); Hematocrit 32.2 % (37-47); Hemoglobin 9.2 g/dL (12.0-15.0); Lymphocyte # 7.77 X10^3/ul (0.83-4.51); Lymphocyte % 29.6 % (19-41); Mean Corp Hgb Conc 28.6 g/dL (32-36); Mean Corpuscular Hgb 27.6 pg (27.0-32.0); Mean Corpuscular Volume 96.7 fL (81-99); Mean Platelet Vol. 9.7 fl (6.2-12.0); Monocyte# 1.77 X10^3/uL; Monocyte% 6.7 % (0-10); NRBC Flagged by Analyzer 0.2 % (0-5); Neutrophil # 15.36 X10^3/uL (2.7-7.7); Neutrophil % 58.6 % (47-70); POSITIVE DIFFERENTIAL YES; POSITIVE MORPHOLOGY YES; Platelet Count 399 K/mm3 (150-450); RBC Distribution Width CV 14.4 % (11.6-14.6); RBC Distribution Width SD 51.2 fl (35.1-43.9); Red Blood Count 3.33 M/mm3 (4.2-5.4); White Blood Count 26.3 K/mm3 (4.4-11.0)
[2022-08-07 21:10] LABS: Differential Indicated SCAN CRITERIA MET
[2022-08-07 21:28] LABS: Troponin-I HS 52 pg/mL (3.0-54.0)
[2022-08-07 21:39] LABS: AST(SGOT) 100 U/L (15-37); Alanine Aminotransfer ALT/SGPT 35 U/L (13-56); Albumin, Serum 2.3 g/dL (3.2-5.0); Alkaline Phosphatase 108 U/L (45-117); Anion Gap 38 (5-15); BUN 40 mg/dL (7-18); BUN/Creat Ratio 8.6 RATIO (10-20); Calcium,Total 8.4 mg/dL (8.5-10.1); Chloride 104 mmol/L (98-107); Creatinine, Serum 4.65 mg/dL (0.55-1.02); EST Glomerular Filtration Rate 10 mL/min (>60); Est Glom Filt Rate - Afr Amer 12 mL/min (>60); Estimated Creatinine Clearance 9.95 ml/min; Globulin 2.2 g/dL (2.2-4.2); Glucose 269 mg/dL (74-106); Potassium 3.9 mmol/L (3.5-5.1); Protein, Total 4.5 g/dL (6.4-8.2); Sodium Level 145 mmol/L (136-145)
[2022-08-07] MEDS: Heparin Injection (Vial) 5,000 UNIT/ML VIAL 5000 UNIT SC (21:46)
[2022-08-07 21:50] LABS: Differential Comment SCANNED
[2022-08-08] VITALS (84 sets, daily range): BP systolic 70–150; BP diastolic 41–77; PULSE 62–167; RESP 14–31; TEMP 31.9–37.9; O2SAT 91–99
[2022-08-08] MEDS: Insulin Lispro 100 UNIT/ML INSULN.PEN SC ×4 (00:25→18:24)
[2022-08-08 01:45] LABS: Bedside Glucose 322 mg/dL (74-106)
[2022-08-08 02:38] LABS: Absolute Lymphocyte Count 4.77 X10^3/uL (0.83-4.51); Absolute Neutrophil Count 14.4 X10^3/uL (2.0-7.7); Basophil# 0.13 X10^3/uL; Basophil% 0.6 % (0-1); Eosinophil# 0.01 X10^3/uL; Hematocrit 30.1 % (37-47); Hemoglobin 8.7 g/dL (12.0-15.0); Lymphocyte # 4.77 X10^3/ul (0.83-4.51); Lymphocyte % 22.3 % (19-41); Mean Corp Hgb Conc 28.9 g/dL (32-36); Mean Corpuscular Hgb 26.9 pg (27.0-32.0); Mean Corpuscular Volume 93.2 fL (81-99); Mean Platelet Vol. 9.8 fl (6.2-12.0); Monocyte# 1.04 X10^3/uL; Monocyte% 4.9 % (0-10); NRBC Flagged by Analyzer 0.5 % (0-5); Neutrophil % 67.3 % (47-70); Platelet Count 372 K/mm3 (150-450); RBC Distribution Width CV 14.5 % (11.6-14.6); RBC Distribution Width SD 49.7 fl (35.1-43.9); Red Blood Count 3.23 M/mm3 (4.2-5.4); White Blood Count 21.4 K/mm3 (4.4-11.0)
[2022-08-08 02:51] LABS: Magnesium 1.8 mg/dL (1.6-2.6); Phosphorus 8.8 mg/dL (2.5-4.9)
[2022-08-08 03:16] LABS: ALB/GLOB Ratio 0.9 RATIO (0.9-2.4); AST(SGOT) 166 U/L (15-37); Alanine Aminotransfer ALT/SGPT 57 U/L (13-56); Albumin, Serum 1.9 g/dL (3.2-5.0); Alkaline Phosphatase 98 U/L (45-117); Anion Gap 37 (5-15); BUN 41 mg/dL (7-18); BUN/Creat Ratio 8.7 RATIO (10-20); Calcium,Total 7.7 mg/dL (8.5-10.1); Chloride 102 mmol/L (98-107); Creatinine, Serum 4.73 mg/dL (0.55-1.02); EST Glomerular Filtration Rate 10 mL/min (>60); Est Glom Filt Rate - Afr Amer 12 mL/min (>60); Estimated Creatinine Clearance 9.78 ml/min; Globulin 2.1 g/dL (2.2-4.2); Glucose 383 mg/dL (74-106); Lactic Acid 19.3 mmol/L (0.4-1.9); Potassium 3.8 mmol/L (3.5-5.1); Sodium Level 144 mmol/L (136-145)
--- NOTE | 2022-08-08 05:26 | RAD_ITS ---
STUDY: X-RAY CHEST REASON FOR EXAM: Female, 56 years old. Respiratory failure. TECHNIQUE: Single frontal view of the chest. COMPARISON: August 07, 2022. FINDINGS: Stable support devices with tip of endotracheal tube approximately 2.6 cm above the edel. Low volume inspiration with bibasilar atelectasis and vascular crowding. There is no demonstrated pleural abnormality. Normal size heart. Normal mediastinum and yaneli. Normal visualized pulmonary arteries. Normal visualized aortic arch and descending thoracic aorta. Normal visualized thoracic spine. Normal visualized ribs, clavicles, and shoulders. There is no demonstrated abnormality of the visualized soft tissue structures of the upper abdomen. RAD/Chest 1 View (Portable) IMPRESSION: Stable support devices with low volume inspiration as described. No acute finding. Electronically Signed: Christopher Gallego, at 10:39 EST ,
[2022-08-08] MEDS: Heparin Injection (Vial) 5,000 UNIT/ML VIAL 5000 UNIT SC ×3 (05:44→22:10)
[2022-08-08 06:06] LABS: Bedside Glucose 354 mg/dL (74-106)
[2022-08-08] MEDS: Insulin Glargine-YFGN 100 UNIT/ML Pen 15 UNIT SC (06:24)
[2022-08-08 06:26] LABS: Reflex Lactate? Y
--- NOTE | 2022-08-08 07:51 | PN.CC_ITS ---
Assessment & Plan Assessment/Plan (1) Shock: (2) Hypoxia: (3) Hypothermia: PLAN: Plan RECOMMENDATIONS: 1. Continue pressors. Wean off Bernard-Synephrine if possible 2. Aggressive fluid resuscitation 3. Continue bicarbonate drip 4. Repeat labs at 10 AM 5. Continue mechanical ventilation at the current settings. Spontaneous breathing and awakening trials per protocol 6. Possibly start trophic feeds 7. Continue frequent neurochecks IMPRESSIONS: 1. Shock Unclear etiology. Patient appears to be significantly volume depleted on physical exam. Patient received aggressive fluid resuscitation. Patient appears to have an element of anion gap but none anion gap metabolic acidosis with a lactate of 15. Unclear if this is secondary to delayed presentation. Patient is on Jardiance, so an element of DKA could be suspected. Patient does have a leukocytosis and is hypothermic, so empiric antibiotics would be re commended. Patient does have a UA suggestive of a urinary tract infection. Empiric antibiotics will be ordered. Pressor requirements may improve once acidosis is controlled. We will repeat labs at 10 AM 2. Lactic acidosis Patient significantly hypoxic and hypotensive on presentation. Patient also on significant doses of metformin and lisinopril in the setting of acute kidney injury. These will be held. Continue to monitor lactic acidosis. Cannot exclude an element of bowel ischemia, but recent endoscopies did not show any acute abnormalities per the . 3. Acute on chronic kidney disease stage IIIa Clinical suspicion for worsening renal function secondary to problem #1. Will order renal ultrasound for evaluation of postobstructive uropathy. Patient may require hemodialysis depending response to fluid resuscitation. Anticipate patient will require significant potassium repletion once acidosis is corrected. We will recheck labs this evening at 8 PM. Nephrology has been consulted. Patient does appear to be making urine this morning. Cannot exclude the need for CV 4. Diabetes mellitus type 2/seizure disorder/hypertension/delayed presentation Complicates care, management, recovery and prognosis. Continue with sliding scale insulin for now. Hold all antihypertensive medications secondary to problems 1 and 3. Okay to continue with Keppra. Lamictal and Topamax secondary to headaches. These will be held TIME: 52 minutes critical care time spent addressing patient's shock, lactic acidosis, acute kidney injury, diabetes mellitus, review of all data and collaboration with care team Subjective Subjective Patient currently on 3 pressors to maintain blood pressure. Oxygenation has done well overnight. There was some concern for a loss of reflexes overnight, but this morning patient has spontaneous breathing and localizes to stimuli. Patient not interactive. Objective Data Objective Data Vital Signs: Vital Signs Temp Pulse Resp BP Pulse Ox O2 Del Method FiO2 37.7 C H 106 H 20 H 96/54 L 95 Mechanical Ventilator 30 08/08/22 07:00 08/08/22 07:00 08/08/22 07:00 08/08/22 07:00 08/08/22 07:50 08/08/22 07:00 08/08/22 07:50 Oxygen Delivery Method Mechanical Ventilator Weight: 67.2 kg Body Mass Index (BMI) 25.0 Intake & Output: Intake and Output for Last 24 Hours 08/06/22 08/07/22 08/08/22 23:59 23:59 23:59 Intake Total 3961.96 / 4018.26 1783.92 / 1783.92 Output Total 0 / 0 0 / 0 Balance 3961.96 / 4018.26 1783.92 / 1783.92 Lab / Micro Data Attestation: I reviewed the patient's lab results. Result Diagrams: 08/08/22 02:20 08/08/22 02:20 Labs: Laboratory Results - last 24 hr 08/07/22 13:30: WBC 18.7 H, RBC 3.40 L, Hgb 9.3 L, Hct 35.9 L, MCV 105.6 H, MCH 27.4, MCHC 25.9 L, RDW Std Deviation 56.8 H, RDW Coeff of Jacqueline 14.5, Plt Count 416, MPV 10.4, Neut % (Auto) Not Reportable, Absolute Neuts (auto) 9.7 H, Absolute Lymphs (auto) 8.60 H, Total Counted 100, Neutrophils % (Manual) 52, Lymphocytes % (Manual) 46 H, Monocytes % (Manual) 2, Diff Path Review May foll, Atypical Lymphocytes 2+, Platelet Estimate ADEQUATE, RBC Morphology N CHROM, Macrocytosis 3+ 08/07/22 13:30: PT 20.3 H, INR 1.8, APTT 81.3 H 08/07/22 13:30: Sodium 141, Potassium 5.2 H, Chloride 106, Carbon Dioxide 3.0 L* , Anion Gap 32 H, BUN 44 H, Creatinine 5.60 H, Estim Creat Clear Calc 8.66, Est GFR (MDRD) Af Amer 10 L, Est GFR (MDRD) Non-Af 8 L, BUN/Creatinine Ratio 7.9 L, Glucose 135 H, Calcium 10.3 H, Total Bilirubin 0.20, AST 57 H, ALT 25, Alkaline Phosphatase 78, Troponin I High Sens 22, Total Protein 5.8 L, Albumin 3.0 L, Globulin 2.8, Albumin/Globulin Ratio 1.1 08/07/22 13:30: Lactic Acid 15.8 H* 08/07/22 15:30: Urine Color Yellow, Urine Clarity Cloudy, Urine pH 5.0, Ur Specific [place] 1.020, Urine Protein 100 H, Urine Glucose (UA) 250 H, Urine Ketones 5 H, Urine Occult Blood 50 H, Urine Nitrite Negative, Urine Bilirubin Negative, Urine Urobilinogen Normal, Ur Leukocyte Esterase 500 H, Urine RBC 0-5 SEEN, Urine WBC >100 SEEN, Ur Squamous Epith Cells 0 SEEN, Urine Bacteria 1+, Urine Mucus 0 SEEN 08/07/22 15:30: Urine Opiates Screen NEGATIVE, Urine Methadone Screen NEGATIVE, Ur Barbiturates Screen NEGATIVE, Ur Phencyclidine Scrn NEGATIVE, Ur Amphetamines Screen NEGATIVE, MDMA (Ecstasy) Screen NEGATIVE, U Benzodiazepines Scrn POSITIVE H, Urine Cocaine Screen NEGATIVE, U Cannabinoids Screen NEGATIVE, Ur Drug Screen Comment 08/07/22 15:30: Blood Type Cancelled, Antibody Screen Cancelled 08/07/22 15:30: TSH 5.35 H 08/07/22 15:45: Serum Osmolality 331 H 08/07/22 15:45: Cortisol 74.80 H 08/07/22 15:56: Blood Type O NEGATIVE, Antibody Screen NEGATIVE 08/07/22 17:35: Troponin I High Sens 36 08/07/22 17:35: Lactic Acid 19.6 H* 08/07/22 19:10: POC Glucose 222 H 08/07/22 20:55: Troponin I High Sens 52 08/07/22 20:55: WBC 26.3 H, RBC 3.33 L, Hgb 9.2 L, Hct 32.2 L, MCV 96.7 D, MCH 27.6, MCHC 28.6 L D, RDW Std Deviation 51.2 H, RDW Coeff of Jacqueline 14.4, Plt Count 399, MPV 9.7, Immature Gran % (Auto) 4.300 H, Neut % (Auto) 58.6, Lymph % (Auto) 29.6, [place] % (Auto) 6.7, Eos % (Auto) 0.2, Baso % (Auto) 0.6, Absolute Neuts (au to) 15.4 H, Absolute Lymphs (auto) 7.77 H, Nucleated RBC % 0.2, Differential Comment SCANNED, Diff Path Review October08/07/22 20:55: Sodium 145, Potassium 3.9, Chloride 104, Carbon Dioxide 3.0 L*, Anion Gap 38 H, BUN 40 H, Creatinine 4.65 H, Estim Creat Clear Calc 9.95, Est GFR (MDRD) Af Amer 12 L, Est GFR (MDRD) Non-Af 10 L, BUN/Creatinine Ratio 8.6 L, Glucose 269 H, Calcium 8.4 L, Total Bilirubin 0.50, AST 100 H, ALT 35, Alkaline Phosphatase 108, Total Protein 4.5 L, Albumin 2.3 L, Globulin 2.2, Albumin/Globulin Ratio 1.0 08/08/22 00:23: POC Glucose 322 H 08/08/22 02:20: WBC 21.4 H, RBC 3.23 L, Hgb 8.7 L, Hct 30.1 L, MCV 93.2, MCH 26.9 L, MCHC 28.9 L, RDW Std Deviation 49.7 H, RDW Coeff of Jacqueline 14.5, Plt Count 372, MPV 9.8, Immature Gran % (Auto) 4.900 H, Neut % (Auto) 67.3, Lymph % (Auto) 22.3, [place] % (Auto) 4.9, Eos % (Auto) 0.0, Baso % (Auto) 0.6, Absolute Neuts (auto) 14.4 H, Absolute Lymphs (auto) 4.77 H, Nucleated RBC % 0.5 08/08/22 02:20: Sodium 144, Potassium 3.8, Chloride 102, Carbon Dioxide 5.0 L*, Anion Gap 37 H, BUN 41 H, Creatinine 4.73 H, Estim Creat Clear Calc 9.78, Est GFR (MDRD) Af Amer 12 L, Est GFR (MDRD) Non-Af 10 L, BUN/Creatinine Ratio 8.7 L, Glucose 383 H, Calcium 7.7 L, Total Bilirubin 0.30, AST 166 H, ALT 57 H, Alkaline Phosphatase 98, Total Protein 4.0 L, Albumin 1.9 L, Globulin 2.1 L, Albumin/Globulin Ratio 0.9 08/08/22 02:20: Lactic Acid 19.3 H* 08/08/22 02:20: Phosphorus 8.8 H, Magnesium 1.8 08/08/22 05:43: POC Glucose 354 H ABG Data ABG results: ABG 08/07/22 08/07/22 08/07/22 14:07 15:06 19:51 Specimen Type ART ART ART Sample Site L Brach Central Line R RADIAL pH < 6.50 L* 6.52 L* 6.68 L* Bicarbonate Actual TNP 2.8 L 2.6 L Total CO2 TNP < 5 Base Excess TNP < -30 L < -30 L O2 Saturation TNP 98 94 L O2 % 40 40 30 ABG pCO2 26.4 L 34.0 L 22.0 L ABG pO2 282 H 267 H 142 H Scottie Test POS Respiration Rate 14 14 14 O2 Delivery Device Adult Vent Adult Vent ADULT VENTILATOR Vent Mode PRVC A-C Tidal Volume 450 450 POC PEEP 5 5 5 Crit Call To/Read Back Yes Yes Blood Gas Notified Whom PIPPA bland ICU Blood Gas Notified Time 19:51 Attestation: I personally reviewed and interpreted this ABG as follows: (Severe metabolic acidosis with partial respiratory compensation and increased AA gradient) Radiography Diagnostic Testing: Radiology Impression Brain CT 08/07/22 13:41 IMPRESSION: Chronic involutional changes of the brain. Tiny lacunae in the right thalamus. Electronically Signed: Sunil Quintanilla MD at 14:27 EST , Chest X-Ray 08/07/22 14:30 IMPRESSION: The tip of the endotracheal tube is at 2.9 sinus proximal to the edel. The tip of the nasogastric tube is seen just distal to the gastroesophageal junction. Mild increased markings in the medial aspect of the right upper lobe. Aspiration should be ruled out. Electronically Signed: Sunil Quintanilla MD at 15:02 EST , Chest X-Ray 08/07/22 15:14 IMPRESSION: The tip of the right subclavian catheter is at the junction of the superior vena cava and right atrium. Electronically Signed: Sunil Quintanilla MD at 15:24 EST , Brain CT 08/07/22 18:05 IMPRESSION: Mild generalized atrophy. Mild low density bilaterally in the deep white matter. This likely represents chronic small vessel ischemic changes in the deep white matter. No significant change since previous exam. Electronically Signed: Quang Laurent MD at 18:31 EST , Rhythm Strip Rhythm Strip: Third-degree heart block Rate: 40 Physical Exam Const Constitutional Narrative: Good vent synchrony. Color slightly improved compared to yesterday General Appearance: patient mechanically ventilated Orientation / Consciousness: obtunded HEENT normocephalic and head/scalp atraumatic Eyes PERRL and conjunctivae normal Neck no lymphadenopathy and supple Chest inspection of chest normal Resp Resp Narrative: Coarse breath sounds Auscultation: Negative for rales, rhonchi or wheezes Cardio regular rhythm, S1 normal heart sound, S2 normal heart sound, no murmurs, no rub and no gallops Rate: tachycardic GI normal to inspection, nondistended, normoactive bowel sounds Extremity no clubbing, cyanosis or edema Skin no rashes or lesions noted Neuro Neuro Narrative: Positive gag and cough reflexes. Spontaneous respiration and localizes symmetrically to painful stimuli. Still not on sedation and not following commands. Psych Mood & Affect: flat affect Charges/Coding Procedures Hospitalists Procedures: [id number] Critial Care 1st Hr
[2022-08-08 08:01] LABS: Allen Test Positive; Base Excess -23 mmol/L (-2 to +2); Bicarbonate 5.9 mmol/L (22-26); Blood Gas Specimen Type ART; FI02 30; Mode AC; O2 Delivery Device Adult Vent; PO2 72 mmHG (75-100); RR 14; SITE R Radial; SO2 90 % (95-99); Total Carbon Dioxide 7 mmol/L; Vt 450; pCO2 16.7 mmHg (35-45); pH 7.16 (7.35-7.45)
--- NOTE | 2022-08-08 08:23 | US_ITS ---
STUDY: RENAL ULTRASOUND - COMPLETE REASON FOR EXAM: Female, 56 years old. Renal failure TECHNIQUE: Ultrasound evaluation of the kidneys was performed with real-time and static dias-scale imaging. COMPARISON: None. FINDINGS: RIGHT KIDNEY: Normal location of the right kidney, which is normal in size. The right kidney measures 8.9 cm x 5 cm x 4.6 cm. There is a normal cortex of the right kidney. The renal cortex measures 1.0 cm. There is no right renal mass or cyst. There are no right renal calculi. There is no right hydronephrosis. DISTAL RIGHT URETER: There is non-visualization of the distal right ureter. There is no demonstrated right ureterovesical junction calculus. There is no demonstrated right ureteral jet. LEFT KIDNEY: Normal location of the left kidney, which is normal in size. The left kidney measures 9.2 cm x 4.5 cm x 5.1 cm. There is a normal cortex of the left kidney. The renal cortex measures 1.6 cm. There is no left renal mass or cyst. There are no left renal calculi. There is no left hydronephrosis. DISTAL LEFT URETER: There is non-visualization of the distal left ureter. There is no demonstrated left ureterovesical junction calculus. There is no demonstrated left ureteral jet. BLADDER: A SPARKS catheter is seen within the urinary bladder. US/Kidney and Bladder IMPRESSION: Normal ultrasound of the kidneys. Electronically Signed: Sunil Quintanilla MD at 8:03 EST ,
--- NOTE | 2022-08-08 09:07 | PCM.PN.HOSP ---
Reason for Visit Reason for Visit: Diagnoses Unresponsiveness Subjective Subjective Is a 56-year-old female who presents emergency department yesterday afternoon with unresponsiveness. All history was taken from the who is at bedside on presentation. The patient was found to be restless on the morning of admission not responding appropriately according to her . She had previous colonoscopy done 3 days prior at [facility]. He called the EMS and she was found unresponsive but had a pulse. Her blood sugar was 184 at that time. Initial blood pressure 67/47, heart rate 40, respiratory rate 14, temperature 83.8 F, oxygen sat was 100% on mechanical ventilator.? Admitting blood work showed WBC 18.7, with neutrophilia, hemoglobin 9.3, down from 10.7, platelet count 416, INR 1.8, pH 6.52, bicarbonate 2.8, PCO2 34, sodium 141, potassium 5.2, chloride 106, bicarbonate 30, BUN 44, creatinine 5.60, anion gap 32, glucose 135, serum osmolarity 331, lactic acid 15.8, calcium 10.3, total bilirubin 0.2, AST 87, ALT 25, ALP 78, troponin 22, albumin 3.0.? UA is cloudy, nitrite negative, leukocyte esterase 500, WBC more than 100, bacteria 1+.? Urine tox positive for benzodiazepine. She was since been started on 3 pressors with Levophed, vasopressin, and Bernard-Synephrine. Fluid boluses have been given and thus far she is unresponsive. Overall etiology of the current presentation is unclear however sepsis is suspected. Cultures are pending and were performed prior to antibiotic administration. Patient is having some response with movement to the noxious stimuli and attempted eye-opening with calling her name. Pupils are reactive but sluggish. Objective Data Objective Data Vital Signs: Vital Signs Temp Pulse Resp BP Pulse Ox O2 Del Method FiO2 99.8 F H 106 H 23 H 96/54 L 95 Mechanical Ventilator 30 08/08/22 07:00 08/08/22 07:50 08/08/22 07:50 08/08/22 07:00 08/08/22 07:50 08/08/22 07:00 08/08/22 07:50 Oxygen Delivery Method Mechanical Ventilator Weight: 67.2 kg Body Mass Index (BMI) 25.0 Intake & Output: Intake and Output for Last 24 Hours 08/06/22 08/07/22 08/08/22 23:59 23:59 23:59 Intake Total 3961.96 / 4018.26 2411.42 / 2411.42 Output Total 0 / 0 0 / 0 Balance 3961.96 / 4018.26 2411.42 / 2411.42 Lab / Micro Data Result Diagrams: 08/08/22 02:20 08/08/22 02:20 Labs: Laboratory Results - last 24 hr 08/07/22 13:30: WBC 18.7 H, RBC 3.40 L, Hgb 9.3 L, Hct 35.9 L, MCV 105.6 H, MCH 27.4, MCHC 25.9 L, RDW Std Deviation 56.8 H, RDW Coeff of Jacqueline 14.5, Plt Count 416, MPV 10.4, Neut % (Auto) Not Reportable, Absolute Neuts (auto) 9.7 H, Absolute Lymphs (auto) 8.60 H, Total Counted 100, Neutrophils % (Manual) 52, Lymphocytes % (Manual) 46 H, Monocytes % (Manual) 2, Diff Path Review May foll, Atypical Lymphocytes 2+, Platelet Estimate ADEQUATE, RBC Morphology N CHROM, Macrocytosis 3+ 08/07/22 13:30: PT 20.3 H, INR 1.8, APTT 81.3 H 08/07/22 13:30: Sodium 141, Potassium 5.2 H, Chloride 106, Carbon Dioxide 3.0 L*, Anion Gap 32 H, BUN 44 H, Creatinine 5.60 H, Estim Creat Clear Calc 8.66, Est GFR (MDRD) Af Amer 10 L, Est GFR (MDRD) Non-Af 8 L, BUN/Creatinine Ratio 7.9 L, Glucose 135 H, Calcium 10.3 H, Total Bilirubin 0.20, AST 57 H, ALT 25, Alkaline Phosphatase 78, Troponin I High Sens 22, Total Protein 5.8 L, Albumin 3.0 L, Globulin 2.8, Albumin/Globulin Ratio 1.1 08/07/22 13:30: Lactic Acid 15.8 H* 08/07/22 15:30: Urine Color Yellow, Urine Clarity Cloudy, Urine pH 5.0, Ur Specific A[place]on 1.020, Urine Protein 100 H, Urine Glucose (UA) 250 H, Urine Ketones 5 H, Urine Occult Blood 50 H, Urine Nitrite Negative, Urine Bilirubin Negative, Urine Urobilinogen Normal, Ur Leukocyte Esterase 500 H, Urine RBC 0-5 SEEN, Urine WBC >100 SEEN, Ur Squamous Epith Cells 0 SEEN, Urine Bacteria 1+, Urine Mucus 0 SEEN 08/07/22 15:30: Urine Opiates Screen NEGATIVE, Urine Methadone Screen NEGATIVE, Ur Barbiturates Screen NEGATIVE, Ur Phencyclidine Scrn NEGATIVE, Ur Amphetamines Screen NEGATIVE, MDMA (Ecstasy) Screen NEGATIVE, U Benzodiazepines Scrn POSITIVE H, Urine Cocaine Screen NEGATIVE, U Cannabinoids Screen NEGATIVE, Ur Drug Screen Comment 08/07/22 15:30: Blood Type Cancelled, Antibody Screen Cancelled 08/07/22 15:30: TSH 5.35 H 08/07/22 15:45: Serum Osmolality 331 H 08/07/22 15:45: Cortisol 74.80 H 08/07/22 15:56: Blood Type O NEGATIVE, Antibody Screen NEGATIVE 08/07/22 17:35: Troponin I High Sens 36 08/07/22 17:35: Lactic Acid 19.6 H* 08/07/22 19:10: POC Glucose 222 H 08/07/22 20:55: Troponin I High Sens 52 08/07/22 20:55: WBC 26.3 H, RBC 3.33 L, Hgb 9.2 L, Hct 32.2 L, MCV 96.7 D, MCH 27.6, MCHC 28.6 L D, RDW Std Deviation 51.2 H, RDW Coeff of Jacqueline 14.4, Plt Count 399, MPV 9.7, Immature Gran % (Auto) 4.300 H, Neut % (Auto) 58.6, Lymph % (Auto) 29.6, [place] % (Auto) 6.7, Eos % (Auto) 0.2, Baso % (Auto) 0.6, Absolute Neuts (auto) 15.4 H, Absolute Lymphs (auto) 7.77 H, Nucleated RBC % 0.2, Differential Comment SCANNED, Diff Path Review October08/07/22 20:55: Sodium 145, Potassium 3.9, Chloride 104, Carbon Dioxide 3.0 L*, Anion Gap 38 H, BUN 40 H, Creatinine 4.65 H, Estim Creat Clear Calc 9.95, Est GFR (MDRD) Af Amer 12 L, Est GFR (MDRD) Non-Af 10 L, BUN/Creatinine Ratio 8.6 L, Glucose 269 H, Calcium 8.4 L, Total Bilirubin 0.50, AST 100 H, ALT 35, Alkaline Phosphatase 108, Total Protein 4.5 L, Albumin 2.3 L, Globulin 2.2, Albumin/Globulin Ratio 1.0 08/08/22 00:23: POC Glucose 322 H 08/08/22 02:20: WBC 21.4 H, RBC 3.23 L, Hgb 8.7 L, Hct 30.1 L, MCV 93.2, MCH 26.9 L, MCHC 28.9 L, RDW Std Deviation 49.7 H, RDW Coeff of Jacqueline 14.5, Plt Count 372, MPV 9.8, Immature Gran % (Auto) 4.900 H, Neut % (Auto) 67.3, Lymph % (Auto) 22.3, [place] % (Auto) 4.9, Eos % (Auto) 0.0, Baso % (Auto) 0.6, Absolute Neuts (auto) 14.4 H, Absolute Lymphs (auto) 4.77 H, Nucleated RBC % 0.5 08/08/22 02:20: Sodium 144, Potassium 3.8, Chloride 102, Carbon Dioxide 5.0 L*, Anion Gap 37 H, BUN 41 H, Creatinine 4.73 H, Estim Creat Clear Calc 9.78, Est GFR (MDRD) Af Amer 12 L, Est GFR (MDRD) Non-Af 10 L, BUN/Creatinine Ratio 8.7 L, Glucose 383 H, Calcium 7.7 L, Total Bilirubin 0.30, AST 166 H, ALT 57 H, Alkaline Phosphatase 98, Total Protein 4.0 L, Albumin 1.9 L, Globulin 2.1 L, Albumin/Globulin Ratio 0.9 08/08/22 02:20: Lactic Acid 19.3 H* 08/08/22 02:20: Phosphorus 8.8 H, Magnesium 1.8 08/08/22 05:43: POC Glucose 354 H ABG Data ABG results: ABG 08/07/22 08/07/22 08/07/22 14:07 15:06 19:51 Specimen Type ART ART ART Sample Site L Brach Central Line R RADIAL pH < 6.50 L* 6.52 L* 6.68 L* Bicarbonate Actual TNP 2.8 L 2.6 L Total CO2 TNP < 5 Base Excess TNP < -30 L < -30 L O2 Saturation TNP 98 94 L O2 % 40 40 30 ABG pCO2 26.4 L 34.0 L 22.0 L ABG pO2 282 H 267 H 142 H Scottie Test POS Respiration Rate 14 14 14 O2 Delivery Device Adult Vent Adult Vent ADULT VENTILATOR Vent Mode PRVC A-C Tidal Volume 450 450 POC PEEP 5 5 5 Crit Call To/Read Back Yes Yes Blood Gas Notified Whom PIPPA bland ICU Blood Gas Notified Time 19:51 08/08/22 07:52 Specimen Type ART Sample Site R Radial pH 7.16 L* Bicarbonate Actual 5.9 L Total CO2 7 Base Excess -23 L O2 Saturation 90 L O2 % 30 ABG pCO2 16.7 L* ABG pO2 72 L Scottie Test Positive Respiration Rate 14 O2 Delivery Device Adult Vent Vent Mode AC Tidal Volume 450 POC PEEP Crit Call To/Read Back Yes Blood Gas Notified Whom vita Blood Gas Notified Time Radiography Diagnostic Testing: Radiology Impression Brain CT 08/07/22 13:41 IMPRESSION: Chronic involutional changes of the brain. Tiny lacunae in the right thalamus. Electronically Signed: Sunil Quintanilla MD at 14:27 EST , Chest X-Ray 08/07/22 14:30 IMPRESSION: The tip of the endotracheal tube is at 2.9 sinus proximal to the edel. The tip of the nasogastric tube is seen just distal to the gastroesophageal junction. Mild increased markings in the medial aspect of the right upper lobe. Aspiration should be ruled out. Electronically Signed: Sunil Quintanilla MD at 15:02 EST , Chest X-Ray 08/07/22 15:14 IMPRESSION: The tip of the right subclavian catheter is at the junction of the superior vena cava and right atrium. Electronically Signed: Sunil Quintanilla MD at 15:24 EST , Brain CT 08/07/22 18:05 IMPRESSION: Mild generalized atrophy. Mild low density bilaterally in the deep white matter. This likely represents chronic small vessel ischemic changes in the deep white matter. No significant change since previous exam. Electronically Signed: Quang Laurent MD at 18:31 EST , Rhythm Strip Rhythm Strip: Third-degree heart block Rate: 40 Physical Exam Const well nourished Constitutional Narrative: Middle-aged white female intubated and sedated in bed, nursing at bedside HEENT head/scalp atraumatic and moist oral mucous membranes HEENT Narrative: ET tube/OG in place Head and Scalp: normocephalic Eyes conjunctivae normal Eyes Narrative: Pupils are equal and reactive to light however reaction is somewhat sluggish, no scleral icterus Resp normal respiratory effort, no retractions, no use of accessory muscles and clear to auscultation bilaterally Resp Narrative: Mild tachypnea as patient is breathing over the ventilator Auscultation: Negative for crackles, rhonchi or wheezes Cardio regular rhythm, S1 normal heart sound, S2 normal heart sound, no murmurs, no rub, no gallops, no clicks and no JVD Cardio Narrative: Mild tachycardia, no ectopy auscultated GI normal to inspection, nondistended, normoactive bowel sounds, soft to palpation and non-tender Extremity no clubbing, cyanosis or edema Extremity Narrative: 2+ pedal pulses Neuro Neuro Narrative: Patient with movement to noxious stimulus and attempted eye-opening to first name Psych Psych Narrative: Unable to assess Assessment & Plan Assessment/Plan (1) Acute hypotension: (2) Shock: (3) Metabolic acidosis: (4) Toxic metabolic encephalopathy: (5) Acute respiratory failure with hypoxia and hypercapnia: (6) Hypothermia: (7) Vitamin D deficiency: (8) Lactic acidosis: (9) Acute renal failure: (10) Bradycardia: (11) Acute respiratory failure with hypoxia: PLAN: Plan Shock -Suspect septic--> see criteria below -Etiology is unclear at this point -Marked leukocytosis -Significant leukocytosis -No signs of adrenal insufficiency as cortisol level was 74.8 -Fluid resuscitation with 30 cc/kg body weight has been completed -Cultures are pending--> blood, urine, sputum -Continue broad-spectrum antibiotics -Patient currently on pressors with Bernard-Synephrine and vasopressin -CCM/pulmonary medicine following-appreciate input Acute hypoxic respiratory failure -Initial ABG demonstrated pH of less than 6.5 with a PCO2 of 26.4 and a PO2 of 282 -Continue mechanical ventilation -Cultures are pending -Pulmonary/critical care medicine following Anion gap metabolic acidosis -Suspect multifactorial from MARY and lactic acidosis -Continue bicarb drip -May need CVVHD if will tolerate hemodynamically -pH is slowly improving -Nephrology is consulted--> they are aware of the situation and CVVHD would be in play if she is hemodynamically stable enough to do so -Doubt DKA as patient only has 5 ketones in her urine Lactic acidosis -Markedly elevated at 19.3 -Possible CVVHD if hemodynamically stable enough -Cultures are pending -Patient has now received adequate fluid resuscitation MARY on CKD stage IIIb -Baseline serum creatinine appears to be between 1.5 and 1.7 -Serum creatinine at presentation was 5.6 -Slowly trending down at 4.73 this morning -Nephrology is consulted -Discussed case with Dr. Sandra this morning Toxic/metabolic encephalopathy -CT of the brain shows no acute findings -Old vascular disease noted -We will consider MRI depending on future response with improvement of metabolic ab normalities -Patient is too unstable for further imaging at this time DM-2 -Continue sliding scale insulin for now -Continue 15 units of basal insulin -Accu-Cheks as ordered Seizure disorder -Continue Keppra--> converted to IV Chronic headaches -Lamictal and Topamax are for these -Hold the above drugs at this time Bradycardia -Patient was bradycardic on presentation however suspect this was related to her severe metabolic abnormalities -Currently resolved Vitamin D deficiency -Restart vitamin D supplementation at discharge Hypertension -Patient is currently hypotensive on pressors -Hold amlodipine/HCTZ/ANUM inhibitor GERD -Hold omeprazole -Protonix IV daily Pancreatic insufficiency -Hold Creon -Restart when p.o. intake has been reinitiated Depression/insomnia -Hold Effexor -Hold trazodone DVT prophylaxis -Continue heparin 5000 units 3 times daily CODE STATUS -No documented CODE STATUS--> suspect full code based on clinical course at this time Sepsis Attestation Sepsis Alert: Yes Sepsis Attestation: Agree w/Sepsis Date exam was performed: 08/08/22 Time exam was performed: 09:10 Possible Source of Sepsis: Other (unclear) Sepsis Organ Dysfunction Criteria Present: SBP < 90 mmHg or MAP < 65 mmHg, Acute Respiratory Failure (New need for BiPAP/CPAP or MV), Creatinine > 2.0 mg/dL, UOP < 0.5 mL/kg/hour for 2 consecutive hours, INR > 1.5 or aPTT > 60 sec, Lactic Acid > 2 mmol/L, Serum CO2 < 20 mmol/L (on BMP) and New/Unexplained change in mental status Fluid Resuscitation Fluid resuscitation indicated?: Yes Fluid Resuscitation ordered: 30 ml/kg fluid bolus ordered Sepsis Note Date exam was performed: 08/08/22 Time exam was performed: 09:30 Sepsis Attestation: Sepsis re-evaluation was performed Response to fluids: Vasopressors started Charges/Coding Visit Charges Inpatient E&M: 31394 Subs Hosp L2
[2022-08-08 11:21] LABS: Absolute Lymphocyte Count 1.57 X10^3/uL (0.83-4.51); Absolute Neutrophil Count 12.9 X10^3/uL (2.0-7.7); Basophil# 0.03 X10^3/uL; Basophil% 0.2 % (0-1); Hematocrit 28.9 % (37-47); Hemoglobin 9.1 g/dL (12.0-15.0); Lymphocyte # 1.57 X10^3/ul (0.83-4.51); Lymphocyte % 9.6 % (19-41); Mean Corp Hgb Conc 31.5 g/dL (32-36); Mean Corpuscular Hgb 27.7 pg (27.0-32.0); Mean Corpuscular Volume 87.8 fL (81-99); Mean Platelet Vol. 10.1 fl (6.2-12.0); Monocyte% 9.8 % (0-10); NRBC Flagged by Analyzer 2.1 % (0-5); Neutrophil # 12.88 X10^3/uL (2.7-7.7); Neutrophil % 78.4 % (47-70); POSITIVE DIFFERENTIAL YES; Platelet Count 320 K/mm3 (150-450); RBC Distribution Width CV 14.8 % (11.6-14.6); RBC Distribution Width SD 48.1 fl (35.1-43.9); Red Blood Count 3.29 M/mm3 (4.2-5.4); White Blood Count 16.4 K/mm3 (4.4-11.0)
--- NOTE | 2022-08-08 11:27 | CASEMGMT ---
Spoke with pt nurse, pt is vented and has not been present today. RN TERRIE Assessment: TC to pt for initial transition planning/care coordination assessment. RN CM introduced self and role at [facility], pt voices understanding and consents to assessment. Care providers, pharmacy, and demographics verified/updated. Admitting Dx: shock PCP:Raj Specialists:Andria, neuro [facility]; Gill, nephro in [place]; Pascual, retina specialist in [place]. Pt to have upcoming appt with endocrinology but unsure of physician. [facility]erred [facility]acy: [facility] Insurance: [facility] Community Plan Prescription Benefit: yes LNOK: [place], Living Arrangements: Pt lives with in a mobile home with a ramp to enter. He states prior to this incident pt was I in ADL's. Transportation: Pt drives self some and also transports to medical appts. DME/HHC/SNF: Pt has a [employer] with sufficient supplies. Pt takes insulin and also has sufficient supplies. Pt uses a rollator. Pt is currently receiving therapy as an outpt at [facility]. Pt has not had HHC. Pt has been to [facility] in the past. Pt aware that CM to follow for patient needs during hospital stay. Advised him to ask CM if any further question/concerns/needs arise, voices understanding. Pt Goal: Pt to return home Plan: TBD
[2022-08-08 11:30] LABS: International Normalized Ratio 1.6
[2022-08-08 11:31] LABS: Partial Thromboplast Time 35.1 Seconds (24.1-36.2)
[2022-08-08 11:53] LABS: ALB/GLOB Ratio 0.9 RATIO (0.9-2.4); AST(SGOT) 190 U/L (15-37); Alanine Aminotransfer ALT/SGPT 67 U/L (13-56); Albumin, Serum 1.8 g/dL (3.2-5.0); Alkaline Phosphatase 78 U/L (45-117); Anion Gap 33 (5-15); BUN 43 mg/dL (7-18); BUN/Creat Ratio 9.2 RATIO (10-20); Calcium,Total 6.9 mg/dL (8.5-10.1); Chloride 100 mmol/L (98-107); Creatinine, Serum 4.69 mg/dL (0.55-1.02); EST Glomerular Filtration Rate 10 mL/min (>60); Est Glom Filt Rate - Afr Amer 12 mL/min (>60); Estimated Creatinine Clearance 9.87 ml/min; Glucose 310 mg/dL (74-106); Potassium 3.5 mmol/L (3.5-5.1); Protein, Total 3.8 g/dL (6.4-8.2); Sodium Level 141 mmol/L (136-145)
[2022-08-08] MEDS: 0.9% Saline Lock 10 ML Syringe IV (11:59)
[2022-08-08 12:06] LABS: Lactic Acid 19.4 mmol/L (0.4-1.9)
[2022-08-08] MEDS: Phenylephrine 40 mg/250 mL 0.9% NS 33.8 MG CONT INF (12:15)
[2022-08-08] MEDS: Norepinephrine 16 mg/250 mL 0.9% NS 28.1 MG CONT INF ×2 (12:16→20:40)
[2022-08-08 13:55] LABS: Bedside Glucose 272 mg/dL (74-106)
--- NOTE | 2022-08-08 14:11 | ECHOL_ITS ---
Reason For Study: Dyspnea/SOB Procedure This was a limited 2D transthoracic echocardiogram. Exam performed portable in ICU/CCU. Left Ventricle Normal LV size. Left ventricular systolic function is normal. The estimated ejection fraction is 60 %. No regional wall motion abnormalities noted. Right Ventricle Normal RV size. Normal systolic function. Atria Normal left atrium. Normal right atrium. Mitral Valve Normal mitral valve. Tricuspid Valve Normal tricuspid valve. Mild tricuspid valve insufficiency. Pulmonary artery systolic pressure is 32 mmHg. Aortic Valve Trisinus/trileaflet aortic valve. Pulmonic Valve The pulmonic valve is not well visualized. Great Vessels Normal aortic root. The pulmonary artery is normal size. Normal inferior vena cava. Pericardium/Pleural No pericardial effusion. MMode/2D Measurements & Calculations LVIDd: 4.2 cm IVSd: 0.99 cm Ao root diam: 2.6 cm LVIDs: 2.2 cm LVPWd: 0.98 cm RVDd: 2.6 cm FS: 47.2 % LVAd ap4: 17.4 cm2 SV(MOD-sp4): 24.3 ml SV(sp4-el): 24.9 ml LVLd ap4: 7.2 cm EDV(MOD-sp4): 35.3 ml EDV(sp4-el): 35.6 ml LVAs ap4: 8.6 cm2 LVLs ap4: 6.0 cm ESV(MOD-sp4): 11.0 ml ESV(sp4-el): 10.6 ml EF(MOD-sp4): 68.8 % EF(sp4-el): 70.1 % LA dimension(2D): 3.0 cm Doppler Measurements & Calculations Ao V2 max: 138.5 cm/sec TR max eder: 266.6 cm/sec Ao max P.7 mmHg TR max P.4 mmHg Ao V2 mean: 91.1 cm/sec Ao mean P.8 mmHg Ao V2 VTI: 23.6 cm ECHO/Echo, Limited Study Interpretation Summary Normal LV size. Left ventricular systolic function is normal. The estimated ejection fraction is 60 %. Pulmonary artery systolic pressure is 32 mmHg. Ordering Physician: Eliceo Kee Referring Physician: Abdirashid Anthony Performed By: Blossom Camacho, EUGENIA, RVT
[2022-08-08 14:31] LABS: M R Staph aureus DNA By PCR Negative (Negative); Probe Check PASS; Specimen Processing Control PASS
[2022-08-08 16:13] LABS: Vancomycin, Random Level 12.4 ug/mL (0.0-15.0)
[2022-08-08 16:19] LABS: Anion Gap 34 (5-15); BUN 43 mg/dL (7-18); Calcium,Total 6.9 mg/dL (8.5-10.1); Chloride 100 mmol/L (98-107); EST Glomerular Filtration Rate 10 mL/min (>60); Est Glom Filt Rate - Afr Amer 12 mL/min (>60); Estimated Creatinine Clearance 9.64 ml/min; Glucose 244 mg/dL (74-106); Potassium 3.3 mmol/L (3.5-5.1); Sodium Level 143 mmol/L (136-145)
[2022-08-08 16:22] LABS: CPK Total, Creatine Kinase 580 U/L (26-192); Triglycerides 155 mg/dL
--- NOTE | 2022-08-08 17:56 | PCM.RX.CS ---
Consult Pharmacy has been consulted to manage selected antiobiotic: Vancomycin Type of Consult: Follow-up Prior Doses of Antibiotics Received/Current Regimen: Medications Discontinued Medications Vancomycin HCl (Vancomycin) 1,000 mg in 200 mls @ 200 mls/hr IV X1 ONE Stop: 08/07/22 18:59 Last Admin: 08/07/22 19:35 Dose: Infused Labs: Sodium 143 mmol/L (136-145) 08/08/22 15:30 Potassium 3.3 mmol/L (3.5-5.1) L 08/08/22 15:30 Chloride 100 mmol/L (98-107) 08/08/22 15:30 Carbon Dioxide 9.0 mmol/L (21.0-32.0) L* 08/08/22 15:30 Anion Gap 34 (5-15) H 08/08/22 15:30 BUN 43 mg/dL (7-18) H 08/08/22 15:30 Creatinine 4.80 mg/dL (0.55-1.02) H 08/08/22 15:30 Est GFR (MDRD) Af Amer 12 mL/min (>60) L 08/08/22 15:30 Est GFR (MDRD) Non-Af 10 mL/min (>60) L 08/08/22 15:30 BUN/Creatinine Ratio 9.0 RATIO (10-20) L 08/08/22 15:30 Glucose 244 mg/dL (74-106) H 08/08/22 15:30 Random Vancomycin 12.4 ug/mL (0.0-15.0) 08/08/22 15:30 Microbiology: Microbiology 08/07/22 15:33 Sputum, Tracheal Aspirate Gram Stain - Final 08/07/22 15:33 Sputum, Tracheal Aspirate Respiratory Culture - Preliminary Appears to be normal respiratory ny. Further studies to follow. Goal Trough: 15-20 mcg/mL Pharmacy Plan for Drug Dosing: Random vancomycin level 12.4 mcg/mL. Recommend 500mg IV x1, random level check tomorrow after 24 hours. Will give time to monitor if patient starts dialysis. Pharmacy Service will continue to monitor and adjust dosing as required. Follow-Up Labs: Trough Vancomycin - 08/09 1900 Random
--- NOTE | 2022-08-08 18:09 | PCM.CONS.R ---
Assessment & Plan Assessment/Plan (1) MARY (acute kidney injury): (2) Chronic kidney disease, stage 3b: (3) Metabolic acidosis: (4) Shock: PLAN: Plan Impression/Plan: The patient is a 56-year-old woman with past history of type 2 diabetes mellitus, hypertension, hypothyroidism, and seizure disorder. The patient presented to the hospital on 08/07/2022 with altered mental status and was found to be in profound shock requiring multiple IV vasopressors. Nephrology is following for MARY on chronic kidney disease and metabolic acidosis. Acute kidney injury on chronic kidney disease stage IIIb. Baseline serum creatinine appears to be around 1.50 mg/dL based on the most recent laboratory test done through [facility] as outpatient on 07/14/2022. Serum creatinine was 1.58 mg/dL on 05/15/2022. The patient likely has CKD from diabetic nephropathy. Her urine albumin to creatinine ratio from 11/20/2021 was 90.5 mg/g. MARY is due to ischemic ATN from shock. She has been anuric since arrival to the hospital. I agree with continue to volume expand the patient using sodium bicarbonate infusion. My other concern is that acidosis could be from high level avoid metformin. I would recommend proceeding with CRRT in this case. If there is inadvertent elevation of metformin in her bloodstream, removing excess metformin with CRRT may help to improve acidosis and shock. I will call her to get consent to proceed. Metabolic acidosis. Although acidosis could be from profound shock leading to poor perfusion and lactic acidosis, I cannot completely exclude contribution from excess metformin which may be difficult for the patient to excrete now that she has MARY. It is unclear whether she kept on taking metformin around the time of colonoscopy preparation and afterward. I will ask the lab to send out metformin level. In any case, I would recommend proceeding with CRRT to treat acidosis and to remove any excess metformin that may still be in circulation. Circulatory shock. The patient may have more than 1 cause for shock. She looks hypovolemic, so I agree with volume expansion with sodium bicarbonate. The patient also may be septic. She is being covered with broad-spectrum antimicrobial. She is currently on IV vasopressors including norepinephrine, phenylephrine and vasopressin. As discussed above, removal of any excess metformin may help to more quickly improve her acidosis and hemodynamics. Nephrology plan was discussed with Dr. Gorman and Dr. Pierre. HPI Consult Data Date of Consult: 08/08/22 HPI Narrative Reason for Consultation: MARY HPI Narrative: The patient is a 56-year-old woman with past history of type 2 diabetes mellitus, hypertension, hypothyroidism, and seizure disorder. The patient presented to the hospital on 08/07/2022 with altered mental status. She is status post colonoscopy on 08/05/2022. The patient was found to be in profound shock on presentation to the hospital. She is currently intubated on multiple IV vasopressors. History cannot be obtained directly from the patient since she is intubated on ventilator. The chart was extensively reviewed and case was discussed with other clinicians. Nephrology is asked to see the patient because of MARY. The patient presented to the hospital with serum creatinine of 5.60 mg/dL. Prior serum creatinine had been around 1.50 mg/dL at baseline (07/14/2022). The patient also presented with severely low serum bicarbonate level of 3.0 mmol/L. According to her , the patient did intentionally decrease her oral intake around the time of her colonoscopy because she was concerned that the preparation would not be adequate for the colonoscopy. It was unclear whether she continue to take metformin around the time of preparation or on the day of colonoscopy. The patient does take metformin for diabetes. She is also on lisinopril/hydrochlorothiazide and empagliflozin prior to admission. [facility] Medical History (Updated 08/08/22 @ 18:[address] Cal Nash MD) Anxiety and depression Chronic anemia Chronic pancreatitis Depression Diabetes mellitus, type 2 GERD (gastroesophageal reflux disease) HTN (hypertension) Hyperlipidemia Hypothyroidism Insomnia Seizure disorder Vitamin D deficiency Home Medications atorvastatin 20 mg tablet 20 mg PO QHS CHOLESTEROL 07/04/18 [History Last Taken 08/05/22] insulin aspart U-100 100 unit/mL (3 mL) subcutaneous pen (Novolog FlexPen U-100 Insulin aspart) 30 units subcut BIDCM DM 07/04/18 [History Last Taken Unknown] metformin 1,000 mg tablet 1,000 mg PO BIDCM DM 07/04/18 [History Last Taken 08/06/22] venlafaxine 150 mg capsule,extended release 24 hr 150 mg PO DAILY . 07/04/18 [History Last Taken 08/06/22] amlodipine 10 mg tablet 10 mg PO DAILY . 08/07/22 [History Last Taken 08/06/22] cholecalciferol (vitamin D3) 25 mcg (1,000 unit) tablet 50 mcg PO DAILY SUPPLEMENT 08/07/22 [History Last Taken 08/05/22] cyanocobalamin (vitamin B-12) 1,000 mcg capsule 1,000 mcg PO DAILY SUPPLEMENT 08/07/22 [History Last Taken 08/06/22] empagliflozin 10 mg tablet (Jardiance) 10 mg PO DAILY . 08/07/22 [History Last Taken 08/06/22] hydrochlorothiazide 25 mg tablet 25 mg PO DAILY . 08/07/22 [History Last Taken 08/06/22] lamotrigine 25 mg tablet 25 mg PO DAILY . 08/07/22 [History Last Taken 08/06/22] levetiracetam 500 mg tablet 500 mg PO BID . 08/07/22 [History Last Taken 08/06/22] lodhes-gicekffh-ncjcofv 36,000-114,000-180,000 unit capsule,delay rel (Creon) 1 cap PO TIDCM . 08/07/22 [History Last Taken 08/06/22] lisinopril 40 mg tablet 40 mg PO DAILY HTN 08/07/22 [History Last Taken 08/06/22] omeprazole 20 mg capsule,delayed release 20 mg PO DAILY GERD 08/07/22 [History Last Taken 08/06/22] topiramate 50 mg tablet 50 mg PO DAILY . 08/07/22 [History Last Taken 08/05/22] trazodone 50 mg tablet 50 mg PO DAILY SLEEP 08/07/22 [History Last Taken 08/05/22] Allergy/AdvReac Type Severity Reaction Status Date / Time No Known Allergies Allergy Verified 06/25/20 15:08 Family History unable to obtain Surgical History unable to obtain Social History (Updated 08/07/22 @ 17:[address] Irma Isaacs MD) household members: spouse Smoking Status: Never smoker alcohol intake: never substance use type: does not use ROS ROS Narrative Unable to obtain ROS due to her current condition. Physical Exam Narrative General appearance: Sedated on mechanical ventilator. She is easily awakened with voice. HEENT: Normocephalic atraumatic. Pupil equal round reactive light and accommodation, the patient is intubated, mucous membrane is moist. Neck: Supple, no JVD. Cardiovascular: Normal S1, S2. No rubs, murmurs or gallop. Lungs: Clear to auscultation anteriorly. Abdomen: Normal bowel sound, soft, nontender no guarding or rebound. Extremities: No clubbing, cyanosis, or edema. Musculoskeletal: Full passive range of motion, no joint swelling. Skin: Warm and dry, no rash. Lab / Micro Data Result Diagrams: 08/08/22 11:00 08/08/22 15:30 Labs: Laboratory Results - last 24 hr 08/07/22 15:45: Cortisol 74.80 H 08/07/22 17:35: Troponin I High Sens 36 08/07/22 17:35: Lactic Acid 19.6 H* 08/07/22 19:10: POC Glucose 222 H 08/07/22 20:55: Troponin I High Sens 52 08/07/22 20:55: WBC 26.3 H, RBC 3.33 L, Hgb 9.2 L, Hct 32.2 L, MCV 96.7 D, MCH 27.6, MCHC 28.6 L D, RDW Std Deviation 51.2 H, RDW Coeff of Jacqueline 14.4, Plt Count 399, MPV 9.7, Immature Gran % (Auto) 4.300 H, Neut % (Auto) 58.6, Lymph % (Auto) 29.6, [place] % (Auto) 6.7, Eos % (Auto) 0.2, Baso % (Auto) 0.6, Absolute Neuts (auto) 15.4 H, Absolute Lymphs (auto) 7.77 H, Nucleated RBC % 0.2, Differential Comment SCANNED, Diff Path Review October foll 08/07/22 20:55: Sodium 145, Potassium 3.9, Chloride 104, Carbon Dioxide 3.0 L*, Anion Gap 38 H, BUN 40 H, Creatinine 4.65 H, Estim Creat Clear Calc 9.95, Est GFR (MDRD) Af Amer 12 L, Est GFR (MDRD) Non-Af 10 L, BUN/Creatinine Ratio 8.6 L, Glucose 269 H, Calcium 8.4 L, Total Bilirubin 0.50, AST 100 H, ALT 35, Alkaline Phosphatase 108, Total Protein 4.5 L, Albumin 2.3 L, Globulin 2.2, Albumin/Globulin Ratio 1.0 08/08/22 00:23: POC Glucose 322 H 08/08/22 02:20: WBC 21.4 H, RBC 3.23 L, Hgb 8.7 L, Hct 30.1 L, MCV 93.2, MCH 26.9 L, MCHC 28.9 L, RDW Std Deviation 49.7 H, RDW Coeff of Jacqueline 14.5, Plt Count 372, MPV 9.8, Immature Gran % (Auto) 4.900 H, Neut % (Auto) 67.3, Lymph % (Auto) 22.3, [place] % (Auto) 4.9, Eos % (Auto) 0.0, Baso % (Auto) 0.6, Absolute Neuts (auto) 14.4 H, Absolute Lymphs (auto) 4.77 H, Nucleated RBC % 0.5 08/08/22 02:20: Sodium 144, Potassium 3.8, Chloride 102, Carbon Dioxide 5.0 L*, Anion Gap 37 H, BUN 41 H, Creatinine 4.73 H, Estim Creat Clear Calc 9.78, Est GFR (MDRD) Af Amer 12 L, Est GFR (MDRD) Non-Af 10 L, BUN/Creatinine Ratio 8.7 L, Glucose 383 H, Calcium 7.7 L, Total Bilirubin 0.30, AST 166 H, ALT 57 H, Alkaline Phosphatase 98, Total Protein 4.0 L, Albumin 1.9 L, Globulin 2.1 L, Albumin/Globulin Ratio 0.9 08/08/22 02:20: Lactic Acid 19.3 H* 08/08/22 02:20: Phosphorus 8.8 H, Magnesium 1.8 08/08/22 05:43: POC Glucose 354 H 08/08/22 11:00: Lactic Acid 19.4 H* 08/08/22 11:00: WBC 16.4 H, RBC 3.29 L, Hgb 9.1 L, Hct 28.9 L, MCV 87.8 D, MCH 27.7, MCHC 31.5 L D, RDW Std Deviation 48.1 H, RDW Coeff of Jacqueline 14.8 H, Plt Count 320, MPV 10.1, Immature Gran % (Auto) 2.000 H, Neut % (Auto) 78.4 H, Lymph % (Auto) 9.6 L, [place] % (Auto) 9.8, Eos % (Auto) 0.0, Baso % (Auto) 0.2, Absolute Neuts (auto) 12.9 H, Absolute Lymphs (auto) 1.57, Nucleated RBC % 2.1 08/08/22 11:00: PT 19.0 H, INR 1.6, APTT 35.1 08/08/22 11:00: Sodium 141, Potassium 3.5, Chloride 100, Carbon Dioxide 8.0 L*, Anion Gap 33 H, BUN 43 H, Creatinine 4.69 H, Estim Creat Clear Calc 9.87, Est GFR (MDRD) Af Amer 12 L, Est GFR (MDRD) Non-Af 10 L, BUN/Creatinine Ratio 9.2 L, Glucose 310 H, Calcium 6.9 L, Total Bilirubin 0.30, AST 190 H, ALT 67 H, Alkaline Phosphatase 78, Total Protein 3.8 L, Albumin 1.8 L, Globulin 2.0 L, Albumin/Globulin Ratio 0.9 08/08/22 12:00: MRSA (PCR) Negative 08/08/22 13:28: POC Glucose 272 H 08/08/22 15:30: Random Vancomycin 12.4 08/08/22 15:30: Sodium 143, Potassium 3.3 L, Chloride 100, Carbon Dioxide 9.0 L*, Anion Gap 34 H, BUN 43 H, Creatinine 4.80 H, Estim Creat Clear Calc 9.64, Est GFR (MDRD) Af Amer 12 L, Est GFR (MDRD) Non-Af 10 L, BUN/Creatinine Ratio 9.0 L, Glucose 244 H, Calcium 6.9 L 08/08/22 15:30: Total Creatine Kinase 580 H, Triglycerides 155 Micro: Microbiology 08/07/22 15:33 Sputum, Tracheal Aspirate Gram Stain - Final 08/07/22 15:33 Sputum, Tracheal Aspirate Respiratory Culture - Preliminary Appears to be normal respiratory ny. Further studies to follow. ABG Data ABG results: ABG 08/07/22 08/08/22 19:51 07:52 Specimen Type ART ART Sample Site R RADIAL R Radial pH 6.68 L* 7.16 L* Bicarbonate Actual 2.6 L 5.9 L Total CO2 7 Base Excess < -30 L -23 L O2 Saturation 94 L 90 L O2 % 30 30 ABG pCO2 22.0 L 16.7 L* ABG pO2 142 H 72 L Scottie Test POS Positive Respiration Rate 14 14 O2 Delivery Device ADULT VENTILATOR Adult Vent Vent Mode A-C AC Tidal Volume 450 POC PEEP 5 Crit Call To/Read Back Yes Blood Gas Notified Whom ICU MD gorman Blood Gas Notified Time 19:51 Rhythm Strip Rhythm Strip: Third-degree heart block Rate: [address] 08/07/22 18:05 IMPRESSION: Mild generalized atrophy. Mild low density bilaterally in the deep white matter. This likely represents chronic small vessel ischemic changes in the deep white matter. No significant change since previous exam. Electronically Signed: Quang Laurent MD at 18:31 EST , Chest X-Ray 08/08/22 05:26 IMPRESSION: Stable support devices with low volume inspiration as described. No acute finding. Electronically Signed: Christopher Gallego, at 10:39 EST ,
--- NOTE | 2022-08-08 18:42 | NURSING ---
184 Dr Sandra present in pt room, prep left groin per his request 185 HR 111 BP 129/55 (74) R 27 SpO2 97 1854 HR 108 BP 112/57 R 23 SpO2 96 1899 HR 110 BP 128/72 R SpO2 procedure begun 1902 wire in 1904 left fem TDC in place HR 110 BP 136/67 R 27 SpO2 97 0 HR 110 BP 143/55 (79) R 23 SpO2 96
[2022-08-08 18:50] LABS: Bedside Glucose 181 mg/dL (74-106)
--- NOTE | 2022-08-08 20:24 | PCM.OP.PRO ---
Procedure Report Date of Procedure: 08/08/22 Placement of left femoral nontunneled hemodialysis catheter. Description of the procedure: After obtaining informed consent from the patient's , both left and right internal jugular vein were interrogated with ultrasound. The patient already has a right subclavian CVC in place. Ultrasound did not show sizable jugular vein on either side. However, she has a compressible left femoral vein. Therefore, the left femoral area was prepared and draped in usual fashion for placement of temporary dialysis catheter. 18-gauge needle was used to cannulate left femoral vein under ultrasound guidance. 0.35 inch guidewire was then inserted through the needle. The venotomy site was dilated with tissue dilator. A 20 cm nontunneled hemodialysis catheter was then placed over guidewire. Good blood flow was demonstrated from each port of the catheter. The catheter was then secured with 3-0 Prolene suture. The lumen of the catheter was then locked with 1: 1000 heparin. The patient tolerated the procedure well. Impression: Successful placement of 20 cm nontunneled dialysis catheter into the left femoral vein.
[2022-08-08] MEDS: Phenylephrine 40 mg/250 mL 0.9% NS 18.8 MG CONT INF (20:40)
[2022-08-08] MEDS: Vancomycin IV 500 MG/100 ML BAG 100 MG IV (20:40)
[2022-08-08] MEDS: Propofol 10MG/Ml 1,000 MG/100 ML Bottle 4 MG CONT INF (21:50)
[2022-08-08] MEDS: Vital AF 1.2 Cal Liquid 1,000 ML 10 ML GT (22:10)
[2022-08-09] VITALS (69 sets, daily range): BP systolic 77–137; BP diastolic 47–94; PULSE 101–115; RESP 14–27; TEMP 36.8–37.5; O2SAT 93–100; BMI 29.0
[2022-08-09 01:20] LABS: Bedside Glucose 129 mg/dL (74-106)
[2022-08-09 03:33] LABS: Absolute Lymphocyte Count 3.94 X10^3/uL (0.83-4.51); Absolute Neutrophil Count 13.2 X10^3/uL (2.0-7.7); Basophil# 0.03 X10^3/uL; Basophil% 0.2 % (0-1); Eosinophil# 0.01 X10^3/uL; Eosinophils% 0.1 % (0-5); Hematocrit 27.3 % (37-47); Hemoglobin 8.8 g/dL (12.0-15.0); Lymphocyte # 3.94 X10^3/ul (0.83-4.51); Lymphocyte % 20.9 % (19-41); Mean Corp Hgb Conc 32.2 g/dL (32-36); Mean Corpuscular Hgb 27.4 pg (27.0-32.0); Mean Platelet Vol. 10.9 fl (6.2-12.0); Monocyte# 1.34 X10^3/uL; Monocyte% 7.1 % (0-10); NRBC Flagged by Analyzer 1.8 % (0-5); Neutrophil # 13.21 X10^3/uL (2.7-7.7); Neutrophil % 70.1 % (47-70); Platelet Count 213 K/mm3 (150-450); RBC Distribution Width CV 15.5 % (11.6-14.6); RBC Distribution Width SD 46.7 fl (35.1-43.9); Red Blood Count 3.21 M/mm3 (4.2-5.4); White Blood Count 18.8 K/mm3 (4.4-11.0)
[2022-08-09 03:50] LABS: ALB/GLOB Ratio 0.9 RATIO (0.9-2.4); AST(SGOT) 167 U/L (15-37); Alanine Aminotransfer ALT/SGPT 69 U/L (13-56); Albumin, Serum 1.8 g/dL (3.2-5.0); Alkaline Phosphatase 53 U/L (45-117); Anion Gap 35 (5-15); BUN 47 mg/dL (7-18); BUN/Creat Ratio 9.5 RATIO (10-20); Calcium,Total 6.8 mg/dL (8.5-10.1); Chloride 96 mmol/L (98-107); Creatinine, Serum 4.95 mg/dL (0.55-1.02); EST Glomerular Filtration Rate 10 mL/min (>60); Est Glom Filt Rate - Afr Amer 12 mL/min (>60); Estimated Creatinine Clearance 9.35 ml/min; Globulin 2.1 g/dL (2.2-4.2); Glucose 114 mg/dL (74-106); Magnesium 1.4 mg/dL (1.6-2.6); Phosphorus 5.1 mg/dL (2.5-4.9); Potassium 3.2 mmol/L (3.5-5.1); Protein, Total 3.9 g/dL (6.4-8.2); Sodium Level 142 mmol/L (136-145)
[2022-08-09] MEDS: TITRATION PARAMETER CHANGE 1 EACH IV (04:03)
[2022-08-09 06:20] LABS: Bedside Glucose 79 mg/dL (74-106)
[2022-08-09] MEDS: Heparin Injection (Vial) 5,000 UNIT/ML VIAL 5000 UNIT SC ×3 (06:39→20:51)
[2022-08-09 06:50] LABS: Bedside Glucose 106 mg/dL (74-106)
--- NOTE | 2022-08-09 07:15 | PN.HOSP_ITS ---
Reason for Visit Reason for Visit: Unresponsiveness Subjective Subjective Case was discussed with nephrology last evening plan is for CVVHD starting today. Dialysis catheter placed last evening. Patient still responding to noxious stimuli and verbal stimuli however is not following commands consistently. Nursing getting ready start CVVHD. Objective Data Objective Data Vital Signs: Vital Signs Temp Pulse Resp BP Pulse Ox O2 Del Method FiO2 99.4 F H 109 H 20 H 108/57 L 100 Mechanical Ventilator 30 08/09/22 07:00 08/09/22 07:00 08/09/22 07:00 08/09/22 07:00 08/09/22 07:00 08/09/22 07:00 08/09/22 07:00 Oxygen Delivery Method Mechanical Ventilator Weight: 71.5 kg Body Mass Index (BMI) 25.0 Intake & Output: Intake and Output for Last 24 Hours 08/07/22 08/08/22 08/09/22 23:59 23:59 23:59 Intake Total 3961.96 / 4018.26 6708.96 / 6771.06 1319.90 / 1319.90 Output Total 0 / 0 90 / 90 0 / 0 Balance 3961.96 / 4018.26 6618.96 / 6681.06 1319.90 / 1319.90 Lab / Micro Data Result Diagrams: 08/09/22 03:00 08/09/22 03:00 Labs: Laboratory Results - last 24 hr 08/08/22 11:00: Lactic Acid 19.4 H* 08/08/22 11:00: WBC 16.4 H, RBC 3.29 L, Hgb 9.1 L, Hct 28.9 L, MCV 87.8 D, MCH 27.7, MCHC 31.5 L D, RDW Std Deviation 48.1 H, RDW Coeff of Jacqueline 14.8 H, Plt Count 320, MPV 10.1, Immature Gran % (Auto) 2.000 H, Neut % (Auto) 78.4 H, Lymph % (Auto) 9.6 L, [place] % (Auto) 9.8, Eos % (Auto) 0.0, Baso % (Auto) 0.2, Absolute Neuts (auto) 12.9 H, Absolute Lymphs (auto) 1.57, Nucleated RBC % 2.1 08/08/22 11:00: PT 19.0 H, INR 1.6, APTT 35.1 08/08/22 11:00: Sodium 141, Potassium 3.5, Chloride 100, Carbon Dioxide 8.0 L*, Anion Gap 33 H, BUN 43 H, Creatinine 4.69 H, Estim Creat Clear Calc 9.87, Est GFR (MDRD) Af Amer 12 L, Est GFR (MDRD) Non-Af 10 L, BUN/Creatinine Ratio 9.2 L, Glucose 310 H, Calcium 6.9 L, Total Bilirubin 0.30, AST 190 H, ALT 67 H, Alkaline Phosphatase 78, Total Protein 3.8 L, Albumin 1.8 L, Globulin 2.0 L, Albumin/Globulin Ratio 0.9 08/08/22 12:00: MRSA (PCR) Negative 08/08/22 13:28: POC Glucose 272 H 08/08/22 15:30: Random Vancomycin 12.4 08/08/22 15:30: Sodium 143, Potassium 3.3 L, Chloride 100, Carbon Dioxide 9.0 L* , Anion Gap 34 H, BUN 43 H, Creatinine 4.80 H, Estim Creat Clear Calc 9.64, Est GFR (MDRD) Af Amer 12 L, Est GFR (MDRD) Non-Af 10 L, BUN/Creatinine Ratio 9.0 L, Glucose 244 H, Calcium 6.9 L 08/08/22 15:30: Total Creatine Kinase 580 H, Triglycerides 155 08/08/22 18:24: POC Glucose 181 H 08/09/22 01:00: POC Glucose 129 H 08/09/22 03:00: WBC 18.8 H, RBC 3.21 L, Hgb 8.8 L, Hct 27.3 L, MCV 85.0, MCH 27.4, MCHC 32.2, RDW Std Deviation 46.7 H, RDW Coeff of Jacqueline 15.5 H, Plt Count 213, MPV 10.9, Immature Gran % (Auto) 1.600 H, Neut % (Auto) 70.1 H, Lymph % (Auto) 20.9, [place] % (Auto) 7.1, Eos % (Auto) 0.1, Baso % (Auto) 0.2, Absolute Neuts (auto) 13.2 H, Absolute Lymphs (auto) 3.94, Nucleated RBC % 1.8 08/09/22 03:00: Sodium 142, Potassium 3.2 L, Chloride 96 L, Carbon Dioxide 11.0 L, Anion Gap 35 H, BUN 47 H, Creatinine 4.95 H, Estim Creat Clear Calc 9.35, Est GFR (MDRD) Af Amer 12 L, Est GFR (MDRD) Non-Af 10 L, BUN/Creatinine Ratio 9.5 L, Glucose 114 H, Calcium 6.8 L, Phosphorus 5.1 H, Magnesium 1.4 L, Total Bilirubin 0.30, AST 167 H, ALT 69 H, Alkaline Phosphatase 53, Total Protein 3.9 L, Albumin 1.8 L, Globulin 2.1 L, Albumin/Globulin Ratio 0.9 08/09/22 06:00: POC Glucose 79 08/09/22 06:28: POC Glucose 106 Micro: Microbiology 08/07/22 15:33 Sputum, Tracheal Aspirate Gram Stain - Final 08/07/22 15:33 Sputum, Tracheal Aspirate Respiratory Culture - Preliminary Appears to be normal respiratory ny. Further studies to follow. ABG Data ABG results: ABG 08/08/22 07:52 Specimen Type ART Sample Site R Radial pH 7.16 L* Bicarbonate Actual 5.9 L Total CO2 7 Base Excess -23 L O2 Saturation 90 L O2 % 30 ABG pCO2 16.7 L* ABG pO2 72 L Scottie Test Positive Respiration Rate 14 O2 Delivery Device Adult Vent Vent Mode AC Tidal Volume 450 Crit Call To/Read Back Yes Blood Gas Notified Whom [facility] Diagnostic Testing: Radiology Impression Chest X-Ray 08/08/22 05:26 IMPRESSION: Stable support devices with low volume inspiration as described. No acute finding. Electronically Signed: Christopher Gallego, at 10:39 EST , Rhythm Strip Rhythm Strip: Third-degree heart block Rate: 40 Physical Exam Const well nourished Constitutional Narrative: Middle-aged white female intubated and sedated in bed, nursing at bedside HEENT head/scalp atraumatic and moist oral mucous membranes HEENT Narrative: ET tube and OG in place Head and Scalp: normocephalic Eyes Eyes Narrative: Pupils are equal and reactive to light however reaction is somewhat sluggish, no scleral icterus, conjunctiva pallor is noted Resp normal respiratory effort, no retractions, no use of accessory muscles and clear to auscultation bilaterally Resp Narrative: Mild tachypnea as patient is breathing over the ventilator Auscultation: Negative for crackles, rhonchi or wheezes Cardio regular rhythm, S1 normal heart sound, S2 normal heart sound, no murmurs, no rub, no gallops, no clicks and no JVD Cardio Narrative: Mild tachycardia, no ectopy auscultated GI normal to inspection, nondistended, normoactive bowel sounds, soft to palpation and non-tender Extremity Extremity Narrative: 2+ pedal pulses, 1+ pitting edema bilateral lower and upper extremities, no cyanosis or clubbing Skin Skin Narrative: Skin is pale Neuro Neuro Narrative: Patient with movement to noxious stimulus and attempted eye-opening to first name Psych Psych Narrative: Unable to assess Assessment & Plan Assessment/Plan (1) Acute hypotension: (2) Shock: (3) Metabolic acidosis: (4) Toxic metabolic encephalopathy: (5) Acute respiratory failure with hypoxia and hypercapnia: (6) Hypothermia: (7) Vitamin D deficiency: (8) Lactic acidosis: (9) Acute renal failure: (10) Bradycardia: (11) Acute respiratory failure with hypoxia: (12) Hypomagnesemia: (13) Anemia: PLAN: Plan Shock -Suspect septic--> see criteria below -Etiology is unclear at this point -Marked leukocytosis -Significant leukocytosis--> remains elevated -No signs of adrenal insufficiency as cortisol level was 74.8 -Fluid resuscitation with 30 cc/kg body weight has been completed -Blood and urine cultures are pending -Sputum culture shows oral ny -Continue broad-spectrum antibiotics -Patient currently on pressors Bernard-Synephrine has been weaned however patient still requiring Levophed and vasopressin -CCM/pulmonary medicine following-appreciate input Acute hypoxic respiratory failure -Initial ABG demonstrated pH of less than 6.5 with a PCO2 of 26.4 and a PO2 of 282 -Continue mechanical ventilation -Now on minimal vent settings with an FiO2 of 30% -Will need mechanically ventilated until acid-base status is improved -Sputum culture shows only normal oral ny -Pulmonary/critical care medicine following Anion gap metabolic acidosis -Suspect multifactorial from MARY and lactic acidosis -Continue bicarb drip -CVVHD today -pH is slowly improving -Nephrology suspects this may be related to metformin and plans to dialyze this out -Metformin level sent-->discussed with lab -Nephrology following-appreciate input Lactic acidosis -Markedly elevated at 19.3 -CVVHD -possible meformin toxicity -level sent from earliest available lab -Cultures are pending -Patient has now received adequate fluid resuscitation MARY on CKD stage IIIb -Baseline serum creatinine appears to be between 1.5 and 1.7 -Serum creatinine at presentation was 5.6 -Serum creat 4.95 today -oliguric -Nephrology Following -Discussed case with Dr. Sandra this morning -CVVHD today Hypomagnesemia -Replacement in progress -Repeat lab in a.m. Toxic/metabolic encephalopathy -CT of the brain shows no acute findings -Old vascular disease noted -improving responsiveness and interaction Anemia -Hemoglobin has dropped however patient is markedly positive at 11 L at this time -We will check iron studies -Check ferritin -Check reticulocyte count -Signs of bleeding -Repeat CBC in a.m. -Continue prophylactic Protonix DM-2 -BGT overall well controlled -Continue sliding scale insulin for now -Continue 15 units of basal insulin -Accu-Cheks as ordered Seizure disorder -Continue IV Keppra Chronic headaches -Lamictal and Topamax are for these -Hold the above drugs at this time Bradycardia -Patient was bradycardic on presentation however suspect this was related to her severe metabolic abnormalities -Currently resolved Vitamin D deficiency -Restart vitamin D supplementation at discharge Hypertension -Patient is currently hypotensive on pressors -Hold amlodipine/HCTZ/ANUM inhibitor GERD -Hold omeprazole -Protonix IV daily Pancreatic insufficiency -Hold Creon -Restart when p.o. intake has been reinitiated Depression/insomnia -Hold Effexor -Hold trazodone DVT prophylaxis -Continue heparin 5000 units 3 times daily CODE STATUS -No documented CODE STATUS--> suspect full code based on clinical course at this time Charges/Coding Visit Charges Inpatient E&M: 08844 Subs Hosp L2
[2022-08-09] MEDS: Norepinephrine 16 mg/250 mL 0.9% NS 18.8 MG CONT INF (07:40)
--- NOTE | 2022-08-09 07:49 | PN.CC_ITS ---
Assessment & Plan Assessment/Plan (1) Shock: (2) Hypoxia: (3) Hypothermia: PLAN: Plan RECOMMENDATIONS: 1. Continue pressors. 2. Discontinue bicarbonate drip 3. CVVH per nephrology 4. Likely running even fluid balance for now, but defer to nephrology 5. Continue mechanical ventilation at the current settings. Spontaneous breathing and awakening trials per protocol 6. Okay to advance tube feeds 7. Continue frequent neurochecks IMPRESSIONS: 1. Shock Unclear etiology. Patient appears to be significantly volume depleted on physical exam. Patient received aggressive fluid resuscitation. Patient appears to have an element of anion gap but none anion gap metabolic acidosis with a lactate of 15. Unclear if this is secondary to delayed presentation versus metformin toxicity. Patient is on Jardiance, so an element of DKA could be suspected. Patient does have a leukocytosis and was hypothermic, so empiric antibiotics would be recommended. Patient does have a UA suggestive of a urinary tract infection, but culture showed no growth to date. Empiric antibiotics will be ordered. Pressor requirements have improved. 2. Lactic acidosis Patient significantly hypoxic and hypotensive on presentation. Patient also on significant doses of metformin and lisinopril in the setting of acute kidney injury. These will be held. Nephrology requesting a metformin level be sent. This would not be resulted for 1 to 2 weeks. Continue to monitor lactic acidosis. Cannot exclude an element of bowel ischemia, but recent endoscopies did not show any acute abnormalities per the . 3. Acute on chronic kidney disease stage IIIa Clinical suspicion for worsening renal function secondary to problem #1. Patient to be initiated on CVVH today. Anticipate patient will require significant potassium repletion once acidosis is corrected. Nephrology has been consulted. Patient does appear to be making urine this morning. Cannot exclude the need for CV 4. Diabetes mellitus type 2/seizure disorder/hypertension/delayed pres entation Complicates care, management, recovery and prognosis. Continue with basal and sliding scale insulin for now. Hold all antihypertensive medications secondary to problems 1 and 3. Okay to continue with Keppra. Lamictal and Topamax secondary to headaches. These will be held TIME: 45 minutes critical care time spent addressing patient's shock, lactic acidosis, acute kidney injury, diabetes mellitus, review of all data and collaboration with care team Subjective Subjective Patient did okay overnight. Patient's pressor requirements have significantly improved, but patient is still requiring Levophed at 15. Small emesis has been noted with mild care, but no significant residuals were noted. Patient is interactive and following some commands. Patient did not receive a spontaneous breathing trial secondary to pressor requirements Discussed with nephrology. Despite improved pressor requirements, will proceed with CVVH this morning. Objective Data Objective Data Vital Signs: Vital Signs Temp Pulse Resp BP Pulse Ox O2 Del Method FiO2 37.4 C H 109 H 20 H 108/57 L 100 Mechanical Ventilator 30 08/09/22 07:00 08/09/22 07:00 08/09/22 07:00 08/09/22 07:00 08/09/22 07:00 08/09/22 07:00 08/09/22 07:00 Oxygen Delivery Method Mechanical Ventilator Weight: 71.5 kg Body Mass Index (BMI) 25.0 Intake & Output: Intake and Output for Last 24 Hours 08/07/22 08/08/22 08/09/22 23:59 23:59 23:59 Intake Total 3961.96 / 4018.26 6708.96 / 6771.06 1319.90 / 1319.90 Output Total 0 / 0 90 / 90 0 / 0 Balance 3961.96 / 4018.26 6618.96 / 6681.06 1319.90 / 1319.90 Lab / Micro Data Attestation: I reviewed the patient's lab results. Result Diagrams: 08/09/22 03:00 08/09/22 03:00 Labs: Laboratory Results - last 24 hr 08/08/22 11:00: Lactic Acid 19.4 H* 08/08/22 11:00: WBC 16.4 H, RBC 3.29 L, Hgb 9.1 L, Hct 28.9 L, MCV 87.8 D, MCH 27.7, MCHC 31.5 L D, RDW Std Deviation 48.1 H, RDW Coeff of Jacqueline 14.8 H, Plt Count 320, MPV 10.1, Immature Gran % (Auto) 2.000 H, Neut % (Auto) 78.4 H, Lymph % (Auto) 9.6 L, [place] % (Auto) 9.8, Eos % (Auto) 0.0, Baso % (Auto) 0.2, Absolute Neuts (auto) 12.9 H, Absolute Lymphs (auto) 1.57, Nucleated RBC % 2.1 08/08/22 11:00: PT 19.0 H, INR 1.6, APTT 35.1 08/08/22 11:00: Sodium 141, Potassium 3.5, Chloride 100, Carbon Dioxide 8.0 L*, Anion Gap 33 H, BUN 43 H, Creatinine 4.69 H, Estim Creat Clear Calc 9.87, Est GFR (MDRD) Af Amer 12 L, Est GFR (MDRD) Non-Af 10 L, BUN/Creatinine Ratio 9.2 L, Glucose 310 H, Calcium 6.9 L, Total Bilirubin 0.30, AST 190 H, ALT 67 H, Alkaline Phosphatase 78, Total Protein 3.8 L, Albumin 1.8 L, Globulin 2.0 L, Albumin/Globulin Ratio 0.9 08/08/22 12:00: MRSA (PCR) Negative 08/08/22 13:28: POC Glucose 272 H 08/08/22 15:30: Random Vancomycin 12.4 08/08/22 15:30: Sodium 143, Potassium 3.3 L, Chloride 100, Carbon Dioxide 9.0 L* , Anion Gap 34 H, BUN 43 H, Creatinine 4.80 H, Estim Creat Clear Calc 9.64, Est GFR (MDRD) Af Amer 12 L, Est GFR (MDRD) Non-Af 10 L, BUN/Creatinine Ratio 9.0 L, Glucose 244 H, Calcium 6.9 L 08/08/22 15:30: Total Creatine Kinase 580 H, Triglycerides 155 08/08/22 18:24: POC Glucose 181 H 08/09/22 01:00: POC Glucose 129 H 08/09/22 03:00: WBC 18.8 H, RBC 3.21 L, Hgb 8.8 L, Hct 27.3 L, MCV 85.0, MCH 27.4, MCHC 32.2, RDW Std Deviation 46.7 H, RDW Coeff of Jacqueline 15.5 H, Plt Count 213, MPV 10.9, Immature Gran % (Auto) 1.600 H, Neut % (Auto) 70.1 H, Lymph % (Auto) 20.9, [place] % (Auto) 7.1, Eos % (Auto) 0.1, Baso % (Auto) 0.2, Absolute Neuts (auto) 13.2 H, Absolute Lymphs (auto) 3.94, Nucleated RBC % 1.8 08/09/22 03:00: Sodium 142, Potassium 3.2 L, Chloride 96 L, Carbon Dioxide 11.0 L, Anion Gap 35 H, BUN 47 H, Creatinine 4.95 H, Estim Creat Clear Calc 9.35, Est GFR (MDRD) Af Amer 12 L, Est GFR (MDRD) Non-Af 10 L, BUN/Creatinine Ratio 9.5 L, Glucose 114 H, Calcium 6.8 L, Phosphorus 5.1 H, Magnesium 1.4 L, Total Bilirubin 0.30, AST 167 H, ALT 69 H, Alkaline Phosphatase 53, Total Protein 3.9 L, Albumin 1.8 L, Globulin 2.1 L, Albumin/Globulin Ratio 0.9 08/09/22 06:00: POC Glucose 79 08/09/22 06:28: POC Glucose 106 Micro: Microbiology 08/07/22 15:33 Sputum, Tracheal Aspirate Gram Stain - Final 08/07/22 15:33 Sputum, Tracheal Aspirate Respiratory Culture - Preliminary Appears to be normal respiratory ny. Further studies to follow. ABG Data ABG results: ABG 08/08/22 07:52 Specimen Type ART Sample Site R Radial pH 7.16 L* Bicarbonate Actual 5.9 L Total CO2 7 Base Excess -23 L O2 Saturation 90 L O2 % 30 ABG pCO2 16.7 L* ABG pO2 72 L Scottie Test Positive Respiration Rate 14 O2 Delivery Device Adult Vent Vent Mode AC Tidal Volume 450 Crit Call To/Read Back Yes Blood Gas Notified Whom vita Attestation: I personally reviewed and interpreted this ABG as follows: (Partially compensated gap/nongap metabolic acidosis with increased AA gradient) Radiography Diagnostic Testing: Radiology Impression Chest X-Ray 08/08/22 05:26 IMPRESSION: Stable support devices with low volume inspiration as described. No acute finding. Electronically Signed: Christopher Gallego, at 10:39 EST , Rhythm Strip Rhythm Strip: Sinus Tach Rate: 120 Physical Exam Const Constitutional Narrative: Good vent synchrony. Color slightly improved compared to yesterday. RASS -1 General Appearance: patient mechanically ventilated Orientation / Consciousness: obtunded HEENT normocephalic and head/scalp atraumatic Eyes PERRL, EOMs intact bilaterally and conjunctivae normal Neck no lymphadenopathy and supple Chest inspection of chest normal Resp Resp Narrative: Coarse breath sounds Auscultation: rales; Negative for rhonchi or wheezes Cardio regular rhythm, S1 normal heart sound, S2 normal heart sound, no murmurs, no rub and no gallops Rate: tachycardic GI normal to inspection, nondistended, normoactive bowel sounds Extremity Extremity Narrative: Anasarca noted General Extremity: edema Skin no rashes or lesions noted Neuro CN's II-XII intact bilaterally, moves all extremities and no focal motor deficits Psych Mood & Affect: flat affect Charges/Coding Procedures Hospitalists Procedures: 56385 Critial Care 1st Hr
--- NOTE | 2022-08-09 08:00 | NURSING ---
hold early mobility for CRRT
--- NOTE | 2022-08-09 08:12 | PCM.RX.CS ---
Consult Pharmacy has been consulted to manage selected antiobiotic: Vancomycin Type of Consult: Follow-up Prior Doses of Antibiotics Received/Current Regimen: Medications Discontinued Medications Vancomycin HCl () 500 mg in 100 mls @ 100 mls/hr IV X1 ONE Stop: 08/08/22 19:59 Last Admin: 08/09/22 01:20 Dose: Infused Vancomycin HCl (Vancomycin) 1,000 mg in 200 mls @ 200 mls/hr IV X1 ONE Stop: 08/07/22 18:59 Last Admin: 08/07/22 19:35 Dose: Infused Labs: Sodium 142 mmol/L (136-145) 08/09/22 03:00 Potassium 3.2 mmol/L (3.5-5.1) L 08/09/22 03:00 Chloride 96 mmol/L (98-107) L 08/09/22 03:00 Carbon Dioxide 11.0 mmol/L (21.0-32.0) L 08/09/22 03:00 Anion Gap 35 (5-15) H 08/09/22 03:00 BUN 47 mg/dL (7-18) H 08/09/22 03:00 Creatinine 4.95 mg/dL (0.55-1.02) H 08/09/22 03:00 Est GFR (MDRD) Af Amer 12 mL/min (>60) L 08/09/22 03:00 Est GFR (MDRD) Non-Af 10 mL/min (>60) L 08/09/22 03:00 BUN/Creatinine Ratio 9.5 RATIO (10-20) L 08/09/22 03:00 Glucose 114 mg/dL (74-106) H 08/09/22 03:00 Random Vancomycin 12.4 ug/mL (0.0-15.0) 08/08/22 15:30 Microbiology: Microbiology 08/07/22 15:33 Sputum, Tracheal Aspirate Gram Stain - Final 08/07/22 15:33 Sputum, Tracheal Aspirate Respiratory Culture - Preliminary Appears to be normal respiratory ny. Further studies to follow. Weight used for dosin kg Estimated Creatinine Clearance: CRRT Goal Trough: 15-20 mcg/mL Pharmacy Plan for Drug Dosing: Patient is starting on CRRT. Had received 2 previous doses of vancomycin. Will start 750mg IV q12h while on CRRT per policy with trough prior to 3rd dose. Pharmacy Service will continue to monitor and adjust dosing as required. Follow-Up Labs: Trough Vancomycin - 08/10 @ 1730
--- NOTE | 2022-08-09 08:20 | RAD_ITS ---
EXAM: XR ABDOMEN, 1 VIEW CLINICAL INDICATION: og placement TECHNIQUE: Frontal supine view of the abdomen/pelvis. This report was created using [employer] report generation technology. COMPARISON: None. FINDINGS: LOWER THORAX: AP view of the abdomen centered at the diaphragm demonstrates endogastric tube looped within the proximal stomach with the tip of the catheter deflected back the distal esophagus. Recommend repositioning the endogastric tube. INTRAPERITONEAL SPACE: Radiolucency within the abdomen incompletely evaluated on this exam of uncertain significance. Question pneumoperitoneum. GASTROINTESTINAL TRACT: Not evaluated on this view. ORGANS: No organomegaly. BONES/JOINTS: No acute abnormality. SOFT TISSUES: No pathological calcification. OTHER FINDINGS: Postoperative changes of the epigastrium and right upper quadrant. RAD/Abdomen Single View (Portable) IMPRESSION: Malposition of the endogastric tube as described. Pneumoperitoneum to be excluded. Electronically Signed: Abraham Bruno MD at 8:44 EST ,
[2022-08-09] MEDS: 0.9% Saline Lock 10 ML Syringe IV ×3 (08:48→23:54)
[2022-08-09 08:53] LABS: Magnesium 1.1 mg/dL (1.6-2.6)
[2022-08-09] MEDS: PUREFLOW B SOLUTION 4K 5,000 ML BAG 9 BAG PF ×2 (09:48→19:42)
--- NOTE | 2022-08-09 11:45 | NURSING ---
multiple alarms re elevated arterial access pressures (-500 average) and arterial air, lengthy troubleshooting w/several RNs. required pt lying flat/supine w/left leg extended out, TF on hold. pt having difficulty holding position. disc w/Dr. Sandra via phone multiple times.
[2022-08-09] MEDS: Heparin 10,000 UNITS/10 ML Vial IV ×2 (11:55→21:02)
[2022-08-09] MEDS: Dextrose 50%-Water 25 GM/50 ML DISP.SYRIN IV (12:30)
[2022-08-09 12:42] LABS: Glucose 25 mg/dL (74-106)
[2022-08-09 12:48] LABS: Albumin, Serum 1.7 g/dL (3.2-5.0); BUN 46 mg/dL (7-18); BUN/Creat Ratio 9.5 RATIO (10-20); Calcium,Total 6.7 mg/dL (8.5-10.1); Chloride 97 mmol/L (98-107); Creatinine, Serum 4.83 mg/dL (0.55-1.02); EST Glomerular Filtration Rate 10 mL/min (>60); Est Glom Filt Rate - Afr Amer 12 mL/min (>60); Estimated Creatinine Clearance 9.58 ml/min; Magnesium 1.1 mg/dL (1.6-2.6); Phosphorus 5.2 mg/dL (2.5-4.9); Potassium 3.2 mmol/L (3.5-5.1); Sodium Level 141 mmol/L (136-145)
[2022-08-09 12:52] LABS: Glucose 25 mg/dL (74-106)
[2022-08-09] MEDS: Menthol/Lanolin/Calamine/Znox 113 GM Tube 1 APPLIC TOPICAL ×2 (13:08→20:52)
[2022-08-09] MEDS: Polyethylene Glycol 3350 17 GM PACKET GT (13:10)
[2022-08-09 13:20] LABS: Bedside Glucose 77 mg/dL (74-106)
[2022-08-09] MEDS: levETIRAcetam 1,000 MG Tablet 1000 MG GT ×2 (13:20→20:51)
[2022-08-09] MEDS: Propofol 10MG/Ml 1,000 MG/100 ML Bottle 4.3 MG CONT INF (14:30)
[2022-08-09 16:30] LABS: Bedside Glucose 79 mg/dL (74-106)
[2022-08-09 16:30] LABS: Bedside Glucose 72 mg/dL (74-106)
[2022-08-09 18:05] LABS: Bedside Glucose 80 mg/dL (74-106)
[2022-08-09] MEDS: Norepinephrine 16 mg/250 mL 0.9% NS 14.1 MG CONT INF (18:35)
--- NOTE | 2022-08-09 19:28 | PCM.PN.REN ---
Subjective Subjective Following for MARY. The patient is somewhat clinically improved with less IV vasopressor requirement. However, she is still anuric with worsening azotemia. Objective Data Objective Data Vital Signs: Vital Signs Temp Pulse Resp BP Pulse Ox O2 Del Method FiO2 98.8 F 106 H 18 98/60 100 Mechanical Ventilator 25 08/09/22 18:00 08/09/22 18:00 08/09/22 18:00 08/09/22 18:45 08/09/22 18:00 08/09/22 18:00 08/09/22 18:00 Oxygen Delivery Method Mechanical Ventilator Weight: 71.5 kg Body Mass Index (BMI) 29.0 Intake & Output: Intake and Output for Last 24 Hours 08/07/22 08/08/22 08/09/22 23:59 23:59 23:59 Intake Total 3961.96 / 4018.26 6708.96 / 6771.06 4191.97 / 4191.97 Output Total 0 / 0 90 / 90 0 / 0 Balance 3961.96 / 4018.26 6618.96 / 6681.06 4191.97 / 4191.97 Lab / Micro Data Result Diagrams: 08/09/22 03:00 08/09/22 12:26 Labs: Laboratory Results - last 24 hr 08/09/22 01:00: POC Glucose 129 H 08/09/22 03:00: WBC 18.8 H, RBC 3.21 L, Hgb 8.8 L, Hct 27.3 L, MCV 85.0, MCH 27.4, MCHC 32.2, RDW Std Deviation 46.7 H, RDW Coeff of Jacqueline 15.5 H, Plt Count 213, MPV 10.9, Immature Gran % (Auto) 1.600 H, Neut % (Auto) 70.1 H, Lymph % (Auto) 20.9, [place] % (Auto) 7.1, Eos % (Auto) 0.1, Baso % (Auto) 0.2, Absolute Neuts (auto) 13.2 H, Absolute Lymphs (auto) 3.94, Nucleated RBC % 1.8 08/09/22 03:00: Sodium 142, Potassium 3.2 L, Chloride 96 L, Carbon Dioxide 11.0 L, Anion Gap 35 H, BUN 47 H, Creatinine 4.95 H, Estim Creat Clear Calc 9.35, Est GFR (MDRD) Af Amer 12 L, Est GFR (MDRD) Non-Af 10 L, BUN/Creatinine Ratio 9.5 L, Glucose 114 H, Calcium 6.8 L, Phosphorus 5.1 H, Magnesium 1.4 L, Total Bilirubin 0.30, AST 167 H, ALT 69 H, Alkaline Phosphatase 53, Total Protein 3.9 L, Albumin 1.8 L, Globulin 2.1 L, Albumin/Globulin Ratio 0.9 08/09/22 06:00: POC Glucose 79 08/09/22 06:28: POC Glucose 106 08/09/22 08:25: Magnesium 1.1 L 08/09/22 12:26: Sodium 141, Potassium 3.2 L, Chloride 97 L, Carbon Dioxide 12.0 L, BUN 46 H, Creatinine 4.83 H, Estim Creat Clear Calc 9.58, Est GFR (MDRD) Af Amer 12 L, Est GFR (MDRD) Non-Af 10 L, BUN/Creatinine Ratio 9.5 L, Glucose 25 L*, Calcium 6.7 L, Phosphorus 5.2 H, Magnesium 1.1 L, Albumin 1.7 L 08/09/22 12:26: Glucose 25 L* 08/09/22 12:59: POC Glucose 77 08/09/22 14:24: POC Glucose 79 08/09/22 16:12: POC Glucose 72 L 08/09/22 17:32: POC Glucose 80 Micro: Microbiology 08/07/22 15:33 Sputum, Tracheal Aspirate Gram Stain - Final 08/07/22 15:33 Sputum, Tracheal Aspirate Respiratory Culture - Final Mixed normal respiratory ny. No Streptococcus pneumoniae, beta-hemolytic Streptococcus or Staphylococcus aureus isolated. Radiography Diagnostic Testing: Radiology Impression KUB X-Ray 08/09/22 08:20 IMPRESSION: Malposition of the endogastric tube as described. Pneumoperitoneum to be excluded. Electronically Signed: Abraham Bruno MD at 8:44 EST , Rhythm Strip Rhythm Strip: Sinus Tach Rate: 120 Physical Exam Narrative General appearance: Sedated on mechanical ventilator. She is easily awakened with voice. HEENT: Normocephalic atraumatic. Pupil equal round reactive light and accommodation, the patient is intubated, mucous membrane is moist. Neck: Supple, no JVD. Cardiovascular: Normal S1, S2. No rubs, murmurs or gallop. Lungs: Clear to auscultation anteriorly. Abdomen: Normal bowel sound, soft, nontender no guarding or rebound. Extremities: No clubbing, cyanosis, or edema. Musculoskeletal: Full passive range of motion, no joint swelling. Skin: Warm and dry, no rash. Assessment & Plan Assessment/Plan (1) MARY (acute kidney injury): (2) Chronic kidney disease, stage 3b: (3) Metabolic acidosis: (4) Shock: PLAN: Plan Impression/Plan: The patient is a 56-year-old woman with past history of type 2 diabetes mellitus, hypertension, hypothyroidism, and seizure disorder. The patient presented to the hospital on 08/07/2022 with altered mental status and was found to be in profound shock requiring multiple IV vasopressors. Nephrology is following for MARY on chronic kidney disease and metabolic acidosis. Acute kidney injury on chronic kidney disease stage IIIb. Baseline serum creatinine appears to be around 1.50 mg/dL based on the most recent laboratory test done through [facility] as outpatient on 07/14/2022. Serum creatinine was 1.58 mg/dL on 05/15/2022. The patient likely has CKD from diabetic nephropathy. Her urine albumin to creatinine ratio from 11/20/2021 was 90.5 mg/g. MARY is due to ischemic ATN from shock. She has been anuric since arrival to the hospital. Although serum bicarbonate level has improved with bicarbonate infusion, it is still low at 11 mmol/L. My other concern is that acidosis could be from high level avoid metformin. She is still on 20 mcg/min of IV norepinephrine. I we will proceed with CRRT in this case. If there is inadvertent elevation of metformin in her bloodstream, removing excess metformin with CRRT may help to improve acidosis and shock. We will aim for effluent dose of 2 L/h. I will not yet remove any fluid. Metabolic acidosis. Although acidosis could be from profound shock leading to poor perfusion and lactic acidosis, I cannot completely exclude contribution from excess metformin which may be difficult for the patient to excrete now that she has MARY. It is unclear whether she kept on taking metformin around the time of colonoscopy preparation and afterward. I will ask the lab to send out metformin level. In any case, I would recommend proceeding with CRRT to treat acidosis and to remove any excess metformin that may still be in circulation. Continue IV sodium bicarb infusion until we can get CRRT up and running for about 2 to 3 hours. Circulatory shock. The patient may have more than 1 cause for shock. She looks hypovolemic, so I agree with volume expansion with sodium bicarbonate. The patient also may be septic. She is being covered with broad-spectrum antimicrobial. She is currently on IV vasopressor. As discussed above, removal of any excess metformin may help to more quickly improve her acidosis and hemodynamics. Nephrology plan was discussed with Dr. Kee and Dr. Pierre.
[2022-08-09 20:25] LABS: Albumin, Serum 1.6 g/dL (3.2-5.0); BUN 48 mg/dL (7-18); Calcium,Total 6.4 mg/dL (8.5-10.1); Chloride 92 mmol/L (98-107); Creatinine, Serum 4.78 mg/dL (0.55-1.02); EST Glomerular Filtration Rate 10 mL/min (>60); Est Glom Filt Rate - Afr Amer 12 mL/min (>60); Estimated Creatinine Clearance 9.68 ml/min; Glucose 125 mg/dL (74-106); Magnesium 1.3 mg/dL (1.6-2.6); Phosphorus 5.4 mg/dL (2.5-4.9); Potassium 3.3 mmol/L (3.5-5.1); Sodium Level 139 mmol/L (136-145)
[2022-08-09] MEDS: Chlorhexidine 15 ML PO (23:00)
[2022-08-09] MEDS: Insulin Lispro 100 UNIT/ML INSULN.PEN SC (23:54)
[2022-08-10] VITALS (49 sets, daily range): BP systolic 95–140; BP diastolic 48–96; PULSE 75–103; RESP 14–24; TEMP 36.4–37.2; O2SAT 96–100
[2022-08-10 00:20] LABS: Bedside Glucose 184 mg/dL (74-106)
--- NOTE | 2022-08-10 00:21 | NURSING ---
Attempted to restart CRRT after Dr. Sandra came to bedside and flipped HD catheter around. However, arterial pressures were too low with multiple alarms. Attempted to reposition catheter with no success. Dr. Sandra to bedside again to evaluate, gave okay to reverse the lines and attempt treatment that way. Pressures still too low so Dr. Sandra said to discontinue treatment and plan for another dialysis catheter placement tomorrow in hopes to restart CRRT with better access.
[2022-08-10] MEDS: CHLORHEXIDINE GLUC 2% CLOTH 1 EACH TOWELETTE TOPICAL (01:07)
[2022-08-10] MEDS: Propofol 10MG/Ml 1,000 MG/100 ML Bottle 6.4 MG CONT INF (01:11)
[2022-08-10] MEDS: Vital AF 1.2 Cal Liquid 1,000 ML 40 ML GT (01:11)
[2022-08-10 03:34] LABS: ALB/GLOB Ratio 0.8 RATIO (0.9-2.4); AST(SGOT) 58 U/L (15-37); Alanine Aminotransfer ALT/SGPT 44 U/L (13-56); Albumin, Serum 1.6 g/dL (3.2-5.0); Alkaline Phosphatase 44 U/L (45-117); Anion Gap 36 (5-15); BUN 48 mg/dL (7-18); Calcium,Total 6.3 mg/dL (8.5-10.1); Chloride 90 mmol/L (98-107); Creatinine, Serum 4.78 mg/dL (0.55-1.02); EST Glomerular Filtration Rate 10 mL/min (>60); Est Glom Filt Rate - Afr Amer 12 mL/min (>60); Estimated Creatinine Clearance 9.68 ml/min; Glucose 211 mg/dL (74-106); Magnesium 1.1 mg/dL (1.6-2.6); Phosphorus 5.6 mg/dL (2.5-4.9); Potassium 3.3 mmol/L (3.5-5.1); Protein, Total 3.6 g/dL (6.4-8.2); Sodium Level 138 mmol/L (136-145)
[2022-08-10 03:50] LABS: Absolute Lymphocyte Count 1.51 X10^3/uL (0.83-4.51); Absolute Neutrophil Count 4.5 X10^3/uL (2.0-7.7); Basophil# 0.01 X10^3/uL; Basophil% 0.1 % (0-1); Hematocrit 20.5 % (37-47); Hemoglobin 6.6 g/dL (12.0-15.0); Lymphocyte # 1.51 X10^3/ul (0.83-4.51); Lymphocyte % 21.9 % (19-41); Mean Corp Hgb Conc 32.2 g/dL (32-36); Mean Corpuscular Hgb 27.4 pg (27.0-32.0); Mean Corpuscular Volume 85.1 fL (81-99); Mean Platelet Vol. 11.2 fl (6.2-12.0); Monocyte# 0.87 X10^3/uL; Monocyte% 12.6 % (0-10); NRBC Flagged by Analyzer 1.6 % (0-5); Neutrophil # 4.45 X10^3/uL (2.7-7.7); Neutrophil % 64.7 % (47-70); POSITIVE COUNT YES; POSITIVE MORPHOLOGY YES; Platelet Count 75 K/mm3 (150-450); RBC Distribution Width CV 16.2 % (11.6-14.6); RBC Distribution Width SD 50.7 fl (35.1-43.9); Red Blood Count 2.41 M/mm3 (4.2-5.4); White Blood Count 6.9 K/mm3 (4.4-11.0)
[2022-08-10 03:55] LABS: Differential Indicated SCAN CRITERIA MET
[2022-08-10 03:59] LABS: Anisocytosis 1+
[2022-08-10 04:01] LABS: Platelet Estimate MOD DEC (ADEQ)
[2022-08-10] MEDS: Magnesium Sulfate 4gm/100mL 4 GM/100 ML IV.SOLN. IV (04:25)
[2022-08-10] MEDS: 0.9% Saline Lock 10 ML Syringe IV ×2 (04:25→07:12)
[2022-08-10] MEDS: Potassium Chloride 20mEq/100mL 20 MEQ/100 ML IV.SOLN. 50 MEQ IV BOLUS (04:26)
[2022-08-10] MEDS: Insulin Lispro 100 UNIT/ML INSULN.PEN SC ×3 (05:11→18:19)
[2022-08-10 05:41] LABS: Bedside Glucose 232 mg/dL (74-106)
[2022-08-10] MEDS: TITRATION PARAMETER CHANGE 1 EACH IV (07:12)
[2022-08-10] MEDS: Heparin Injection (Vial) 5,000 UNIT/ML VIAL 5000 UNIT SC (07:12)
--- NOTE | 2022-08-10 07:30 | PN.CC_ITS ---
Assessment & Plan Assessment/Plan (1) Shock: (2) Hypoxia: (3) Hypothermia: PLAN: Plan RECOMMENDATIONS: 1. Continue empiric broad-spectrum antimicrobials. 2. Continue Levophed to maintain a mean arterial pressure at or above 65 mmHg. 3. Replace temporary HD line and reattempt CRRT. 4. Check H&H posttransfusion. 5. Continue PPI therapy. 6. Stop heparin, given thrombocytopenia. Send PF4 antibody. 7. Continue monitor H&H daily and transfuse if hemoglobin drops below 7 g/dL. IMPRESSIONS: 1. Septic shock Clinical concern for an underlying pulmonary source of infection. Recommend continuing broad-spectrum antimicrobials for now. Culture data has been largely unrevealing to date. However, the patient still requires Levophed to maintain hemodynamic stability. Plan to wean vasopressors as tolerated to maintain a mean arterial pressure at or above 65 mmHg. 2. MARY on CKD Likely secondary to progression to ischemic ATN in the setting of #1. Plan to replace the patient's temporary HD line and resume CRRT, if feasible, from a nephrology perspective. 3. Anemia and thrombocytopenia Recommend transfusion of 1 unit of packed red blood cells today. Check H&H po sttransfusion. There are no overt signs of any GI blood loss. In light of the patient's acute drop in platelet count, will discontinue heparin and send PF4 antibody. Continue to monitor blood counts and transfuse if hemoglobin drops below 7 g/dL. 4. Diabetes mellitus type 2/seizure disorder/hypertension Complicates care, management, recovery and prognosis. Continue sliding scale insulin coverage. Continue to hold home antihypertensives. TIME: 37 minutes of critical care time, independent of procedures, was spent addressing the patient's septic shock, MARY on CKD, anemia, thrombocytopenia, review of all data and collaboration with the care team. Subjective Subjective The patient was seen and examined at the bedside this morning. Events from the last 24 hours have been reviewed. The patient remains on Levophed at 10 mcg/min to maintain hemodynamic stability. Today is vent day #4. She remains on assist control mode of mechanical ventilation with an FiO2 requirement of 25%. The patient has been tolerant of tube feeds. Unfortunately, CRRT became non functional overnight. She is currently documented to be overall net +17 L for the hospitalization. Hemoglobin dropped to 6.6 g/dL. The patient is currently receiving a transfusion of packed red blood cells. Platelet count is low at 75,000. Potassium is low at 3.3 with a chloride of 90, bicarbonate of 12, anion gap of 36, BUN of 48 and creatinine of 4.78. Phosphorus is elevated at 5.6 with a magnesium of 1.1. Objective Data Objective Data The patient's most recent lab work, culture data and imaging studies have all been personally reviewed. Infectious work-up has been unrevealing to date. Vital Signs: Vital Signs Temp Pulse Resp BP Pulse Ox O2 Del Method FiO2 99.0 F 99 16 100/52 L 100 Mechanical Ventilator 08/10/22 07:24 08/10/22 07:24 08/10/22 07:24 08/10/22 07:24 08/10/22 07:08/10/22 07:08/10/22 07:24 Oxygen Delivery Method Mechanical Ventilator Weight: 169 lb 15.622 oz Body Mass Index (BMI) 29.0 Intake & Output: Intake and Output for Last 24 Hours 08/08/22 08/09/22 08/10/22 23:59 23:59 23:59 Intake Total 6708.96 / 6771.06 5052.20 / 5147.70 1804.46 / 1804.46 Output Total 90 / 90 0 / 0 Balance 6618.96 / 6681.06 5052.20 / 5147.70 1779.46 / 1779.46 Lab / Micro Data Attestation: I reviewed the patient's lab results. Result Diagrams: 08/10/22 10:30 08/10/22 03:10 Labs: Laboratory Results - last 24 hr 08/07/22 15:56: Crossmatch See Detail 08/09/22 08:25: Magnesium 1.1 L 08/09/22 12:26: Sodium 141, Potassium 3.2 L, Chloride 97 L, Carbon Dioxide 12.0 L, BUN 46 H, Creatinine 4.83 H, Estim Creat Clear Calc 9.58, Est GFR (MDRD) Af Amer 12 L, Est GFR (MDRD) Non-Af 10 L, BUN/Creatinine Ratio 9.5 L, Glucose 25 L* , Calcium 6.7 L, Phosphorus 5.2 H, Magnesium 1.1 L, Albumin 1.7 L 08/09/22 12:26: Glucose 25 L* 08/09/22 12:59: POC Glucose 77 08/09/22 14:24: POC Glucose 79 08/09/22 16:12: POC Glucose 72 L 08/09/22 17:32: POC Glucose 80 08/09/22 19:52: Sodium 139, Potassium 3.3 L, Chloride 92 L, Carbon Dioxide 12.0 L, BUN 48 H, Creatinine 4.78 H, Estim Creat Clear Calc 9.68, Est GFR (MDRD) Af Amer 12 L, Est GFR (MDRD) Non-Af 10 L, BUN/Creatinine Ratio 10.0, Glucose 125 H, Calcium 6.4 L*, Phosphorus 5.4 H, Magnesium 1.3 L, Albumin 1.6 L 08/09/22 23:53: POC Glucose 184 H 08/10/22 03:10: WBC Cancelled, Corrected WBC Cancelled, RBC Cancelled, Hgb Cancelled, Hct Cancelled, MCV Cancelled, MCH Cancelled, MCHC Cancelled, RDW Std Deviation Cancelled, RDW Coeff of Jacqueline Cancelled, Plt Count Cancelled, MPV Cancelled, Immature Gran % (Auto) Cancelled, Neut % (Auto) Cancelled, Lymph % (Auto) Cancelled, [place] % (Auto) Cancelled, Eos % (Auto) Cancelled, Baso % (Auto) Cancelled, Absolute Neuts (auto) Cancelled, Absolute Lymphs (auto) Cancelled, Total Counted Cancelled, Neutrophils % (Manual) Cancelled, Band Neutrophils % Cancelled, Lymphocytes % (Manual) Cancelled, Monocytes % (Manual) Cancelled, Eosinophils % (Manual) Cancelled, Basophils % (Manual) Cancelled, Metamyelocytes % Cancelled, Myelocytes % Cancelled, Promyelocytes % Cancelled, Blast Cells % Cancelled, Plasma Cell % (Manual) Cancelled, Other Cells % Cancelled, Nucleated RBC % Cancelled, Nucleated RBCs/100 WBC Cancelled, Differential Comment Cancelled, Diff Path Review Cancelled, Hypersegmented Neuts Cancelled, Atypical Lymphocytes Cancelled, Reactive Lymphocytes Cancelled, Smudge Cells Cancelled, Toxic Granulation Cancelled, Toxic Vacuolation Cancelled, Dohle Bodies Cancelled, Renetta Rods Cancelled, Platelet Estimate Cancelled, Plt Morphology Comment Cancelled, RBC Morphology Cancelled, Polychromasia Cancelled, Hypochromasia Cancelled, Poikilocytosis Cancelled, Basophilic Stippling Cancelled, Anisocytosis Cancelled, Microcytosis Cancelled, Macrocytosis Can celled, Spherocytes Cancelled, Sickle Cells Cancelled, Target Cells Cancelled, Tear Drop Cells Cancelled, Ovalocytes Cancelled, Stomatocytes Cancelled, [place]eter- [place] Bodies Cancelled, Beth Cells Cancelled, Bite Cells Cancelled, Crenated Cell Cancelled, Acanthocytes (Spur) Cancelled, Rouleaux Cancelled, Schistocytes Cancelled 08/10/22 03:10: Sodium 138, Potassium 3.3 L, Chloride 90 L, Carbon Dioxide 12.0 L, Anion Gap 36 H, BUN 48 H, Creatinine 4.78 H, Estim Creat Clear Calc 9.68, Est GFR (MDRD) Af Amer 12 L, Est GFR (MDRD) Non-Af 10 L, BUN/Creatinine Ratio 10.0, Glucose 211 H, Calcium 6.3 L*, Phosphorus 5.6 H, Magnesium 1.1 L, Total Bilirubin 0.30, AST 58 H, ALT 44, Alkaline Phosphatase 44 L, Total Protein 3.6 L , Albumin 1.6 L, Globulin 2.0 L, Albumin/Globulin Ratio 0.8 L 08/10/22 03:41: WBC 6.9, RBC 2.41 L, Hgb 6.6 L, Hct 20.5 L, MCV 85.1, MCH 27.4, MCHC 32.2, RDW Std Deviation 50.7 H, RDW Coeff of Jacqueline 16.2 H, Plt Count 75 L, MPV 11.2, Immature Gran % (Auto) 0.700, Neut % (Auto) 64.7, Lymph % (Auto) 21.9, [place] % (Auto) 12.6 H, Eos % (Auto) 0.0, Baso % (Auto) 0.1, Absolute Neuts (auto) 4.5, Absolute Lymphs (auto) 1.51, Nucleated RBC % 1.6, Platelet Estimate MOD D EC, Anisocytosis 1+ 08/10/22 05:10: POC Glucose 232 H Micro: Microbiology 08/07/22 15:33 Sputum, Tracheal Aspirate Gram Stain - Final 08/07/22 15:33 Sputum, Tracheal Aspirate Respiratory Culture - Final Mixed normal respiratory ny. No Streptococcus pneumoniae, beta-hemolytic Streptococcus or Staphylococcus aureus isolated. Radiography Diagnostic Testing: Radiology Impression KUB X-Ray 08/09/22 08:20 IMPRESSION: Malposition of the endogastric tube as described. Pneumoperitoneum to be excluded. Electronically Signed: Abraham Bruno MD at 8:44 EST Reading Location ID and State: [address] [place] [address] Tel , Service support , Rhythm Strip Rhythm Strip: Sinus Tach Rate: 120 Physical Exam Const Constitutional Narrative: Intubated, sedated and mechanically ventilated. No ventilator dyssynchrony. HEENT normocephalic and head/scalp atraumatic Mouth: endotracheal tube in place and OG tube in place Eyes PERRL, EOMs intact bilaterally and conjunctivae normal Neck supple General: trachea midline and CVC in place Chest inspection of chest normal Resp Auscultation: rhonchi and diminished lung sounds Cardio regular rate and regular rhythm GI normal to inspection, nondistended, normoactive bowel sounds Extremity General Extremity: edema Skin no rashes or lesions noted Neuro CN's II-XII intact bilaterally and no focal motor deficits Sensorium / Orientation: sedated on vent Charges/Coding Procedures Hospitalists Procedures: 17918 Critial Care 1st Hr
--- NOTE | 2022-08-10 07:35 | RAD_ITS ---
STUDY: X-RAY CHEST REASON FOR EXAM: Female, 56 years old. Respiratory Failure TECHNIQUE: Single AP portable view of the chest. COMPARISON: Yesterday FINDINGS: NG tube tip now is present in the distal esophagus with the tip pointing cranially. Stable appearance of the ET tube, right subclavian central venous catheter and EKG leads. Lungs are expanded without a superimposed process. Normal size heart. Normal mediastinum and yaneli. Normal visualized pulmonary arteries. Normal visualized aortic arch and descending thoracic aorta. Normal visualized thoracic spine. Normal visualized ribs, clavicles, and shoulders. There is no demonstrated abnormality of the visualized soft tissue structures of the upper abdomen. RAD/Chest 1 View (Portable) IMPRESSION: The NG tube tip now is present in the distal esophagus with the tip facing cranially. This should be readjusted Stable appearance of the other support lines and tubes including the ET tube. No acute pulmonary process Electronically Signed: Thomas Landa MD at 11:21 EST ,
[2022-08-10] MEDS: Polyethylene Glycol 3350 17 GM PACKET GT (08:18)
[2022-08-10] MEDS: Chlorhexidine 15 ML PO ×2 (08:18→20:47)
[2022-08-10] MEDS: levETIRAcetam 1,000 MG Tablet 1000 MG GT ×2 (08:18→20:47)
[2022-08-10] MEDS: Menthol/Lanolin/Calamine/Znox 113 GM Tube 1 APPLIC TOPICAL ×2 (08:18→20:54)
[2022-08-10 08:34] LABS: Troponin-I HS 43 pg/mL (3.0-54.0)
[2022-08-10 08:55] LABS: Total Carbon Dioxide < 5 mmol/L
[2022-08-10] MEDS: Potassium Chloride 20mEq/100mL 20 MEQ/100 ML IV.SOLN. 100 MEQ IV BOLUS ×2 (08:59→10:11)
--- NOTE | 2022-08-10 09:00 | CPS ---
TCO2 RESULTS ON ABG DONE ON 08/07/2022 ENTERED BY NOEMI AND VERIFIED BY CARON.
[2022-08-10 09:22] LABS: Immature Platelet Fraction 8.2 % (1.0-7.9); Platelet Count 69 K/mm3 (150-450); RET-HE 31.6 pg (30-35); Reticulocyte Count 1.15 % (0.5-1.5)
[2022-08-10 09:29] LABS: International Normalized Ratio 1.2; Partial Thromboplast Time 46.1 Seconds (24.1-36.2); Prothrombin Time (Protime)PT. 14.9 SECONDS (11.7-14.9)
[2022-08-10 09:34] LABS: Iron 27 ug/dL (50-170); Iron Binding Capacity,Total 149 ug/dL (250-450); PERCENT IRON SATURATION 18.1 % (15.0-55.0)
[2022-08-10 09:36] LABS: Vancomycin, Random Level 14.5 ug/mL (0.0-15.0)
--- NOTE | 2022-08-10 09:54 | PN.RENAL_ITS ---
Subjective Subjective Follow-up on acute kidney injury, high anion gap metabolic acidosis. CRRT did not work overnight, apparently catheter is multifunctional, awaiting line placement. Objective Data Objective Data Vital Signs: Vital Signs Temp Pulse Resp BP Pulse Ox O2 Del Method FiO2 98.8 F 97 17 111/56 L 100 Mechanical Ventilator 25 08/10/22 09:00 08/10/22 09:00 08/10/22 09:00 08/10/22 09:00 08/10/22 09:00 08/10/22 09:00 08/10/22 09:00 Oxygen Delivery Method Mechanical Ventilator Weight: 77.1 kg Body Mass Index (BMI) 29.0 Intake & Output: Intake and Output for Last 24 Hours 08/08/22 08/09/22 08/10/22 23:59 23:59 23:59 Intake Total 6708.96 / 6771.06 5052.20 / 5147.70 2495.35 / 2495.35 Output Total 90 / 90 0 / 0 25 / 25 Balance 6618.96 / 6681.06 5052.20 / 5147.70 2470.35 / 2470.35 Lab / Micro Data Attestation: I reviewed the patient's lab results. Result Diagrams: 08/10/22 03:41 08/10/22 03:10 Labs: Laboratory Results - last 24 hr 08/07/22 15:56: Crossmatch See Detail 08/09/22 12:26: Sodium 141, Potassium 3.2 L, Chloride 97 L, Carbon Dioxide 12.0 L, BUN 46 H, Creatinine 4.83 H, Estim Creat Clear Calc 9.58, Est GFR (MDRD) Af Amer 12 L, Est GFR (MDRD) Non-Af 10 L, BUN/Creatinine Ratio 9.5 L, Glucose 25 L* , Calcium 6.7 L, Phosphorus 5.2 H, Magnesium 1.1 L, Albumin 1.7 L 08/09/22 12:26: Glucose 25 L* 08/09/22 12:59: POC Glucose 77 08/09/22 14:24: POC Glucose 79 08/09/22 16:12: POC Glucose 72 L 08/09/22 17:32: POC Glucose 80 08/09/22 19:52: Sodium 139, Potassium 3.3 L, Chloride 92 L, Carbon Dioxide 12.0 L, BUN 48 H, Creatinine 4.78 H, Estim Creat Clear Calc 9.68, Est GFR (MDRD) Af Amer 12 L, Est GFR (MDRD) Non-Af 10 L, BUN/Creatinine Ratio 10.0, Glucose 125 H, Calcium 6.4 L*, Phosphorus 5.4 H, Magnesium 1.3 L, Albumin 1.6 L 08/09/22 23:53: POC Glucose 184 H 08/10/22 03:10: WBC Cancelled, Corrected WBC Cancelled, RBC Cancelled, Hgb Cancelled, Hct Cancelled, MCV Cancelled, MCH Cancelled, MCHC Cancelled, RDW Std Deviation Cancelled, RDW Coeff of Jacqueline Cancelled, Plt Count Cancelled, MPV Cancelled, Immature Gran % (Auto) Cancelled, Neut % (Auto) Cancelled, Lymph % (Auto) Cancelled, [place] % (Auto) Cancelled, Eos % (Auto) Cancelled, Baso % (Auto) Cancelled, Absolute Neuts (auto) Cancelled, Absolute Lymphs (auto) Cancelled, Total Counted Cancelled, Neutrophils % (Manual) Cancelled, Band Neutrophils % Cancelled, Lymphocytes % (Manual) Cancelled, Monocytes % (Manual) Cancelled, Eosinophils % (Manual) Cancelled, Basophils % (Manual) Cancelled, Metamyelocytes % Cancelled, Myelocytes % Cancelled, Promyelocytes % Cancelled, Blast Cells % Cancelled, Plasma Cell % (Manual) Cancelled, Other Cells % Cancelled, Nucleated RBC % Cancelled, Nucleated RBCs/100 WBC Cancelled, Differential Comment Cancelled, Diff Path Review Cancelled, Hypersegmented Neuts Cancelled, Atypical Lymphocytes Cancelled, Reactive Lymphocytes Cancelled, Smudge Cells Cancelled, Toxic Granulation Cancelled, Toxic Vacuolation Cancelled, Dohle Bodies Cancelled, Renetta Rods Cancelled, Platelet Estimate Cancelled, Plt Morphology Comment Cancelled, RBC Morphology Cancelled, Polychromasia Cancelled, Hypochromasia Cancelled, Poikilocytosis Cancelled, Basophilic Stippling Can celled, Anisocytosis Cancelled, Microcytosis Cancelled, Macrocytosis Cancelled, Spherocytes Cancelled, Sickle Cells Cancelled, Target Cells Cancelled, Tear Drop Cells Cancelled, Ovalocytes Cancelled, Stomatocytes Cancelled, Jeter-[place] Bodies Cancelled, [place] Cells Cancelled, Bite Cells Cancelled, Crenated Cell Cancelled, Acanthocytes (Spur) Cancelled, Rouleaux Cancelled, Schistocytes Cancelled 08/10/22 03:10: Sodium 138, Potassium 3.3 L, Chloride 90 L, Carbon Dioxide 12.0 L, Anion Gap 36 H, BUN 48 H, Creatinine 4.78 H, Estim Creat Clear Calc 9.68, Est GFR (MDRD) Af Amer 12 L, Est GFR (MDRD) Non-Af 10 L, BUN/Creatinine Ratio 10.0, Glucose 211 H, Calcium 6.3 L*, Phosphorus 5.6 H, Magnesium 1.1 L, Total Bilirubin 0.30, AST 58 H, ALT 44, Alkaline Phosphatase 44 L, Total Protein 3.6 L , Albumin 1.6 L, Globulin 2.0 L, Albumin/Globulin Ratio 0.8 L 08/10/22 03:10: Troponin I High Sens 43 08/10/22 03:41: WBC 6.9, RBC 2.41 L, Hgb 6.6 L, Hct 20.5 L, MCV 85.1, MCH 27.4, MCHC 32.2, RDW Std Deviation 50.7 H, RDW Coeff of Jacqueline 16.2 H, Plt Count 75 L, MPV 11.2, Immature Gran % (Auto) 0.700, Neut % (Auto) 64.7, Lymph % (Auto) 21.9, [place] % (Auto) 12.6 H, Eos % (Auto) 0.0, Baso % (Auto) 0.1, Absolute Neuts (auto) 4.5, Absolute Lymphs (auto) 1.51, Nucleated RBC % 1.6, Platelet Estimate MOD DEC, Anisocytosis 1+ 08/10/22 05:10: POC Glucose 232 H 08/10/22 08:15: Random Vancomycin 14.5 08/10/22 09:00: Immature Plt Fraction 8.2 H, Retic Count 1.15, Immature Retic Fraction 8.90, Retic Hgb Equivalent 31.6 08/10/22 09:00: Iron 27 L, TIBC 149 L, Iron Saturation 18.1 08/10/22 09:00: PT 14.9, INR 1.2, APTT 46.1 H Micro: Microbiology 08/07/22 15:30 Urine, Clean Catch Urine Culture - Final Pseudomonas fluorescens 08/07/22 15:33 Sputum, Tracheal Aspirate Gram Stain - Final 08/07/22 15:33 Sputum, Tracheal Aspirate Respiratory Culture - Final Mixed normal respiratory ny. No Streptococcus pneumoniae, beta-hemolytic Streptococcus or Staphylococcus aureus isolated. ABG Data ABG results: ABG 08/07/22 19:51 Specimen Type ART Sample Site R RADIAL pH 6.68 L* Bicarbonate Actual 2.6 L Total CO2 < 5 Base Excess < -30 L O2 Saturation 94 L O2 % 30 ABG pCO2 22.0 L ABG pO2 142 H Scottie Test POS Respiration Rate 14 O2 Delivery Device ADULT VENTILATOR Vent Mode A-C POC PEEP 5 Blood Gas Notified Whom ICU MD Blood Gas Notified Time 19:51 Rhythm Strip Rhythm Strip: Sinus Tach Rate: 120 Physical Exam Narrative Orally intubated, sedated, on ventilator FiO2 25%, PEEP of 5. Const average body habitus HEENT normocephalic Head and Scalp: atraumatic Cardio Cardio Narrative: Tachycardic GI Auscultation: normoactive bowel sounds Neuro Sensorium / Orientation: sedated on vent Assessment & Plan Assessment/Plan (1) MARY (acute kidney injury): PLAN: Acute kidney injury secondary to ATN, high anion gap metabolic acidosis due to lactic acid, possibly lactic acidosis associated with metformin toxicity. Anion gap remains high, bicarb is low. Her line has been malfunctioning, so CRRT will be restarted as soon as the line is in. (2) Lactic acidosis: PLAN: Possibly related to metformin toxicity, might be related to tissue hypoperfusion. Will be corrected with CRRT (3) Metabolic acidosis: PLAN: As above
[2022-08-10] MEDS: Heparin 10,000 UNITS/10 ML Vial 10000 UNITS IV ×2 (10:33→15:57)
--- NOTE | 2022-08-10 10:50 | RAD_ITS ---
STUDY: X-RAY CHEST REASON FOR EXAM: Female, 56 years old. Dialysis catheter placement TECHNIQUE: Single AP portable view of the chest. COMPARISON: Comparison is made with prior examination dated 08/10/2022 at 8:02 AM. FINDINGS: An endotracheal tube is in situ. The tip is at 3.1 cm proximal to edel. Endogastric tube is seen with the distal tip coiled in the distal portion of the esophagus. A right-sided subclavian venous catheter is in situ with the tip at the junction of the superior vena cava and right atrium. A left-sided internal jugular dialysis catheter has been placed with the tip in the midportion of the superior vena cava. Stable infiltration in the posterior medial segment of the left lower lobe. There is no demonstrated pleural abnormality. Normal size heart. Normal mediastinum and yaneli. Normal visualized pulmonary arteries. Normal visualized aortic arch and descending thoracic aorta. Normal visualized thoracic spine. Normal visualized ribs, clavicles, and shoulders. There is no demonstrated abnormality of the visualized soft tissue structures of the upper abdomen. RAD/CXR for Line Placement IMPRESSION: The tip of the left temporary dialysis catheter is in the midportion of the superior vena cava. The tip of the nasogastric tube is coiled in the distal portion of the esophagus. Persistent left lower lobe infiltrate. Electronically Signed: Sunil Quintanilla MD at 11:15 EST ,
[2022-08-10 11:00] LABS: Hemoglobin 7.5 g/dL (12.0-15.0)
--- NOTE | 2022-08-10 11:09 | PCM.OP.BLANK ---
Problems Associated Problem List Diagnoses (1) MARY (acute kidney injury): (2) Metabolic acidosis: Operative Report Date of Procedure: 08/10/22 Left IJ double-lumen hemodialysis catheter placement. 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 Afterwards using Seldinger technique double-lumen hemodialysis catheter was introduced in the left IJ under ultrasound guidance. X-rays taken, no immediate complications
--- NOTE | 2022-08-10 12:28 | RAD_ITS ---
STUDY: X-RAY - ABDOMEN/PELVIS REASON FOR EXAM: Female, 56 years old. OG placement TECHNIQUE: Single AP view of the abdomen / pelvis. COMPARISON: None. FINDINGS: Normal visualized lung bases. NG/OG tube has been placed, tip is in the body of the stomach There is an unremarkable bowel gas pattern. There is no demonstrated free abdominal air. The visualized liver, spleen and kidneys are grossly normal in size and morphology. Normal soft tissue structures. Normal visualized osseous structures. RAD/Abdomen Single View (Portable) IMPRESSION: NG/OG tube tip in the body of the stomach Electronically Signed: Thomas Landa MD at 12:51 EST ,
[2022-08-10 12:55] LABS: Bedside Glucose 248 mg/dL (74-106)
[2022-08-10 13:19] LABS: Pathologist Review Reviewed
[2022-08-10 13:19] LABS: Pathologist Review Reviewed
[2022-08-10] MEDS: Norepinephrine 16 mg/250 mL 0.9% NS 4.7 MG CONT INF (13:31)
--- NOTE | 2022-08-10 13:59 | PCM.RX.CS ---
Consult Pharmacy has been consulted to manage selected antiobiotic: Vancomycin Type of Consult: Follow-up Prior Doses of Antibiotics Received/Current Regimen: Medications Vancomycin HCl 750 mg/ Sodium (Chloride) 265 mls @ 250 mls/hr IV Q12H ERMIAS Discontinued Medications Vancomycin HCl (Vancomycin) 1,000 mg in 200 mls @ 200 mls/hr IV X1 ONE Stop: 08/07/22 18:59 Last Admin: 08/07/22 19:35 Dose: Infused Vancomycin HCl () 500 mg in 100 mls @ 100 mls/hr IV X1 ONE Stop: 08/08/22 19:59 Last Admin: 08/09/22 01:20 Dose: Infused Vancomycin HCl 750 mg/ Sodium (Chloride) 265 mls @ 250 mls/hr IV Q12H ERMIAS Last Admin: 08/09/22 17:36 Dose: Not Given Labs: Sodium 138 mmol/L (136-145) 08/10/22 03:10 Potassium 3.3 mmol/L (3.5-5.1) L 08/10/22 03:10 Chloride 90 mmol/L (98-107) L 08/10/22 03:10 Carbon Dioxide 12.0 mmol/L (21.0-32.0) L 08/10/22 03:10 Anion Gap 36 (5-15) H 08/10/22 03:10 BUN 48 mg/dL (7-18) H 08/10/22 03:10 Creatinine 4.78 mg/dL (0.55-1.02) H 08/10/22 03:10 Est GFR (MDRD) Af Amer 12 mL/min (>60) L 08/10/22 03:10 Est GFR (MDRD) Non-Af 10 mL/min (>60) L 08/10/22 03:10 BUN/Creatinine Ratio 10.0 RATIO (10-20) 08/10/22 03:10 Glucose 211 mg/dL (74-106) H 08/10/22 03:10 Random Vancomycin 14.5 ug/mL (0.0-15.0) 08/10/22 08:15 Microbiology: Microbiology 08/07/22 16:50 Blood Culture (Wb) - Left Foot Blood Culture - Preliminary No growth in 48 hours. 08/07/22 16:45 Blood Culture (Wb) - Right Wrist Blood Culture - Preliminary No growth in 48 hours. 08/10/22 12:00 Stool Stool Occult Blood (ISAIAS) - Final Occult Blood Positive 08/07/22 15:30 Urine, Clean Catch Urine Culture - Final Pseudomonas fluorescens 08/07/22 15:33 Sputum, Tracheal Aspirate Gram Stain - Final 08/07/22 15:33 Sputum, Tracheal Aspirate Respiratory Culture - Final Mixed normal respiratory ny. No Streptococcus pneumoniae, beta-hemolytic Streptococcus or Staphylococcus aureus isolated. Weight used for dosin kg Estimated Creatinine Clearance: CRRT Goal Trough: 15-20 mcg/mL Pharmacy Plan for Drug Dosing: Patient is re-starting CRRT. Had received 2 previous doses of vancomycin. Random level checked on 08/10 was 14.5 mcg/dL. Will re-start 750mg IV q12h while on CRRT per policy with trough prior to 3rd dose. Pharmacy Service will continue to monitor and adjust dosing as required. Follow-Up Labs: Trough Vancomycin - 08/11 @ 1730
[2022-08-10] MEDS: PUREFLOW B SOLUTION 4K 5,000 ML BAG 9 BAG PF (14:07)
[2022-08-10] MEDS: Propofol 10MG/Ml 1,000 MG/100 ML Bottle 6.9 MG CONT INF (14:43)
--- NOTE | 2022-08-10 16:00 | PN.HOSP_ITS ---
Reason for Visit Reason for Visit: Mental status change Subjective Subjective Patient remains on pressors but down to 10 of Levophed. +17.5 L for the hospitalization. Tried CVVHD overnight however were having issues with the flow. Remains intubated and sedated in the ICU. Objective Data Objective Data Vital Signs: Vital Signs Temp Pulse Resp BP Pulse Ox O2 Del Method FiO2 98.4 F 91 14 113/54 L 99 Mechanical Ventilator 25 08/10/22 15:00 08/10/22 15:00 08/10/22 15:00 08/10/22 15:00 08/10/22 15:00 08/10/22 15:00 08/10/22 15:00 Oxygen Delivery Method Mechanical Ventilator Weight: 77.1 kg Body Mass Index (BMI) 29.0 Intake & Output: Intake and Output for Last 24 Hours 08/08/22 08/09/22 08/10/22 23:59 23:59 23:59 Intake Total 6708.96 / 6771.06 5052.20 / 5147.70 4683.59 / 4683.59 Output Total 90 / 90 0 / 0 55 / 55 Balance 6618.96 / 6681.06 5052.20 / 5147.70 4628.59 / 4628.59 Lab / Micro Data Result Diagrams: 08/10/22 10:30 08/10/22 03:10 Labs: Laboratory Results - last 24 hr 08/07/22 13:30: Diff Path Review Reviewed 08/07/22 15:56: Crossmatch See Detail 08/07/22 20:55: Diff Path Review Reviewed 08/09/22 14:24: POC Glucose 79 08/09/22 16:12: POC Glucose 72 L 08/09/22 17:32: POC Glucose 80 08/09/22 19:52: Sodium 139, Potassium 3.3 L, Chloride 92 L, Carbon Dioxide 12.0 L, BUN 48 H, Creatinine 4.78 H, Estim Creat Clear Calc 9.68, Est GFR (MDRD) Af Amer 12 L, Est GFR (MDRD) Non-Af 10 L, BUN/Creatinine Ratio 10.0, Glucose 125 H, Calcium 6.4 L*, Phosphorus 5.4 H, Magnesium 1.3 L, Albumin 1.6 L 08/09/22 23:53: POC Glucose 184 H 08/10/22 03:10: WBC Cancelled, Corrected WBC Cancelled, RBC Cancelled, Hgb Cancelled, Hct Cancelled, MCV Cancelled, MCH Cancelled, MCHC Cancelled, RDW Std Deviation Cancelled, RDW Coeff of Jacqueline Cancelled, Plt Count Cancelled, MPV Cancelled, Immature Gran % (Auto) Cancelled, Neut % (Auto) Cancelled, Lymph % (Auto) Cancelled, [place] % (Auto) Cancelled, Eos % (Auto) Cancelled, Baso % (Auto) Cancelled, Absolute Neuts (auto) Cancelled, Absolute Lymphs (auto) Cancelled, Total Counted Cancelled, Neutrophils % (Manual) Cancelled, Band Neutrophils % Cancelled, Lymphocytes % (Manual) Cancelled, Monocytes % (Manual) Cancelled, Eosinophils % (Manual) Cancelled, Basophils % (Manual) Cancelled, Metamyelocytes % Cancelled, Myelocytes % Cancelled, Promyelocytes % Cancelled, Blast Cells % Cancelled, Plasma Cell % (Manual) Cancelled, Other Cells % Cancelled, Nucleated RBC % Cancelled, Nucleated RBCs/100 WBC Cancelled, Differential Comment Cancelled, Diff Path Review Cancelled, Hypersegmented Neuts Cancelled, Atypical Lymphocytes Cancelled, Reactive Lymphocytes Cancelled, Smudge Cells Cancelled, Toxic Granulation Cancelled, Toxic Vacuolation Cancelled, Dohle Bodies Cancelled, Renetta Rods Cancelled, Platelet Estimate Cancelled, Plt Morphology Comment Cancelled, RBC Morphology Cancelled, Polychromasia Cancelled, Hypochromasia Cancelled, Poikilocytosis Cancelled, Basophilic Stippling Cancelled, Anisocytosis Cancelled, Microcytosis Cancelled, Macrocytosis Cancelled, Spherocytes Cancelled, Sickle Cells Cancelled, Target Cells Cancelled, Tear Drop Cells Cancelled, Ovalocytes Cancelled, Stomatocytes Cancelled, [place] Bodies Cancelled, Beth Cells Cancelled, Bite Cells Cancelled, Crenated Cell Cancelled, Acanthocytes (Spur) Cancelled, Rouleaux Cancelled, Schistocytes Cancelled 08/10/22 03:10: Sodium 138, Potassium 3.3 L, Chloride 90 L, Carbon Dioxide 12.0 L, Anion Gap 36 H, BUN 48 H, Creatinine 4.78 H, Estim Creat Clear Calc 9.68, Est GFR (MDRD) Af Amer 12 L, Est GFR (MDRD) Non-Af 10 L, BUN/Creatinine Ratio 10.0, Glucose 211 H, Calcium 6.3 L*, Phosphorus 5.6 H, Magnesium 1.1 L, Total Bilirubin 0.30, AST 58 H, ALT 44, Alkaline Phosphatase 44 L, Total Protein 3.6 L , Albumin 1.6 L, Globulin 2.0 L, Albumin/Globulin Ratio 0.8 L 08/10/22 03:10: Troponin I High Sens 43 08/10/22 03:41: WBC 6.9, RBC 2.41 L, Hgb 6.6 L, Hct 20.5 L, MCV 85.1, MCH 27.4, MCHC 32.2, RDW Std Deviation 50.7 H, RDW Coeff of Jacqueline 16.2 H, Plt Count 75 L, MPV 11.2, Immature Gran % (Auto) 0.700, Neut % (Auto) 64.7, Lymph % (Auto) 21.9, [place] % (Auto) 12.6 H, Eos % (Auto) 0.0, Baso % (Auto) 0.1, Absolute Neuts (auto) 4.5, Absolute Lymphs (auto) 1.51, Nucleated RBC % 1.6, Platelet Estimate MOD DEC, Anisocytosis 1+ 08/10/22 05:10: POC Glucose 232 H 08/10/22 08:15: Random Vancomycin 14.5 08/10/22 09:00: Immature Plt Fraction 8.2 H, Retic Count 1.15, Immature Retic F raction 8.90, Retic Hgb Equivalent 31.6 08/10/22 09:00: Iron 27 L, TIBC 149 L, Iron Saturation 18.1 08/10/22 09:00: PT 14.9, INR 1.2, APTT 46.1 H 08/10/22 10:30: Hgb 7.5 L, Hct 23.0 L 08/10/22 12:33: POC Glucose 248 H Micro: Microbiology 08/07/22 16:50 Blood Culture (Wb) - Left Foot Blood Culture - Preliminary No growth in 48 hours. 08/07/22 16:45 Blood Culture (Wb) - Right Wrist Blood Culture - Preliminary No growth in 48 hours. 08/10/22 12:00 Stool Stool Occult Blood (ISAIAS) - Final Occult Blood Positive 08/07/22 15:30 Urine, Clean Catch Urine Culture - Final Pseudomonas fluorescens 08/07/22 15:33 Sputum, Tracheal Aspirate Gram Stain - Final 08/07/22 15:33 Sputum, Tracheal Aspirate Respiratory Culture - Final Mixed normal respiratory ny. No Streptococcus pneumoniae, beta-hemolytic Streptococcus or Staphylococcus aureus isolated. ABG Data ABG results: ABG 08/07/22 19:51 Specimen Type ART Sample Site R RADIAL pH 6.68 L* Bicarbonate Actual 2.6 L Total CO2 < 5 Base Excess < -30 L O2 Saturation 94 L O2 % 30 ABG pCO2 22.0 L ABG pO2 142 H Scottie Test POS Respiration Rate 14 O2 Delivery Device ADULT VENTILATOR Vent Mode A-C POC PEEP 5 Blood Gas Notified Whom ICU MD Blood Gas Notified Time 19:51 Radiography Diagnostic Testing: Radiology Impression Echocardiogram 08/08/22 14:11 Interpretation Summary Normal LV size. Left ventricular systolic function is normal. The estimated ejection fraction is 60 %. Pulmonary artery systolic pressure is 32 mmHg. Ordering Physician: Eliceo Kee Referring Physician: Abdirashid Anthony Performed By: Blsosom Camacho, RDCS, RVT Chest X-Ray 08/10/22 07:35 IMPRESSION: The NG tube tip now is present in the distal esophagus with the tip facing cranially. This should be readjusted Stable appearance of the other support lines and tubes including the ET tube. No acute pulmonary process Electronically Signed: Thomas Landa MD at 11:21 EST , Chest X-Ray 08/10/22 10:50 IMPRESSION: The tip of the left temporary dialysis catheter is in the midportion of the superior vena cava. The tip of the nasogastric tube is coiled in the distal portion of the esophagus. Persistent left lower lobe infiltrate. Electronically Signed: Sunil Quintanilla MD at 11:15 EST , KUB X-Ray 08/10/22 12:28 IMPRESSION: NG/OG tube tip in the body of the stomach Electronically Signed: Thomas Landa MD at 12:51 EST , Rhythm Strip Rhythm Strip: Sinus Tach Rate: 120 Physical Exam Const well nourished Constitutional Narrative: Middle-aged white female intubated and sedated in bed, nursing at bedside HEENT head/scalp atraumatic and moist oral mucous membranes HEENT Narrative: ET tube and OG in place Head and Scalp: normocephalic Resp normal respiratory effort, no retractions, no use of accessory muscles and clear to auscultation bilaterally Auscultation: Negative for crackles, rhonchi or wheezes Cardio regular rate, regular rhythm, S1 normal heart sound, S2 normal heart sound, no murmurs, no rub, no gallops, no clicks and no JVD GI normal to inspection, nondistended, normoactive bowel sounds, soft to palpation and non-tender Extremity no clubbing, cyanosis or edema Extremity Narrative: 2+ pedal pulses, 1-2+ pitting edema bilateral lower and upper extremities, no cyanosis or clubbing Skin Skin Narrative: Skin is pale Neuro Neuro Narrative: Patient with movement to noxious stimulus and attempted eye-opening to first name Psych Psych Narrative: Unable to assess Assessment & Plan Assessment/Plan (1) Acute hypotension: (2) Shock: (3) Metabolic acidosis: (4) Toxic metabolic encephalopathy: (5) Acute respiratory failure with hypoxia and hypercapnia: (6) Hypothermia: (7) Vitamin D deficiency: (8) Lactic acidosis: (9) Acute renal failure: (10) Bradycardia: (11) Acute respiratory failure with hypoxia: (12) Hypomagnesemia: (13) Anemia: (14) Thrombocytopenia: (15) Hypokalemia: PLAN: Plan Shock -Etiology is unclear as cultures are unremarkable overall -Significant leukocytosis on admission however this is normalized -No signs of adrenal insufficiency as cortisol level was 74.8 -Fluid resuscitation with 30 cc/kg body weight has been completed -All cultures are negative -If cultures remain negative over the next 24 hours may be able to discontinue IV antibiotics -Patient is currently only on Levophed at 10 mics -CCM/pulmonary medicine following-appreciate input Acute hypoxic respiratory failure -Initial ABG demonstrated pH of less than 6.5 with a PCO2 of 26.4 and a PO2 of 282 -Continue mechanical ventilation -Now on minimal vent settings with an FiO2 of 25% -Will need mechanically ventilated until acid-base status is improved -Sputum culture unremarkable -Pulmonary/critical care medicine following Anion gap metabolic acidosis -Suspect multifactorial from MARY and lactic acidosis -Continue bicarb drip -CVVHD today -pH is slowly improving -Nephrology suspects this may be related to metformin and plans to dialyze this out -Metformin level sent--> pending results -Nephrology following-appreciate input Lactic acidosis -Markedly elevated at 19.3 -CVVHD in process -possible meformin toxicity -level sent from earliest available lab -Cultures are unremarkable -Patient has now received adequate fluid resuscitation MARY on CKD stage IIIb -Baseline serum creatinine appears to be between 1.5 and 1.7 -Serum creatinine at presentation was 5.6 -Serum creat 4.95 today -oliguric -Nephrology Following -Discussed case with Dr. Sandra this morning -CVVHD today Acute anemia -Hemoglobin down significantly overnight and requiring 1 unit of blood -6.6 on the a.m. of 08/10/2022 and 9.3 on admission -Guaiac was positive -Start Protonix drip -Iron studies show low total iron and TIBC but a normal iron saturation -Reticulocyte is not elevated -Repeat CBC in a.m. -Consult gastroenterology Thrombocytopenia -This is new -Lately count normal at 213,000 yesterday and now 75,000 today -Stop subcu heparin and avoid anticoagulation -Send HIT antibody -Coags assessed and there are no signs of DIC at this point -Repeat CBC in a.m. Hypomagnesemia -Replace again today -Repeat lab in a.m. Hypokalemia -Replacement in progress -Reassess in a.m. Toxic/metabolic encephalopathy -CT of the brain shows no acute findings -Old vascular disease noted -Should continue to improve as metabolic issues normalize DM-2 -BGT overall well controlled -Continue sliding scale insulin for now -Basal insulin discontinued as patient had some hypoglycemia issues yesterday -Blood sugar 211 this morning however with yesterday's events we will hold off on any further basal insulin as I suspect she is not clearing insulin because of her renal function -This will change when CVVHD can be fully initiated then flow is appropriate -Accu-Cheks as ordered Seizure disorder -Continue IV Keppra Chronic headaches -Lamictal and Topamax are for these -Hold the above drugs at this time Bradycardia -Patient was bradycardic on presentation however suspect this was related to her severe metabolic abnormalities -Currently resolved Vitamin D deficiency -Restart vitamin D supplementation at discharge Hypertension -Patient is currently hypotensive on pressors -Hold amlodipine/HCTZ/ANUM inhibitor GERD -Hold omeprazole -Protonix IV daily Pancreatic insufficiency -Hold Creon -Restart when p.o. intake has been reinitiated Depression/insomnia -Hold Effexor -Hold trazodone DVT prophylaxis -Continue heparin 5000 units 3 times daily CODE STATUS -No documented CODE STATUS--> suspect full code based on clinical course at this time Charges/Coding Visit Charges Inpatient E&M: 90558 Subs Hosp L2
[2022-08-10 16:34] LABS: Bedside Glucose 122 mg/dL (74-106)
[2022-08-10 18:20] LABS: Bedside Glucose 255 mg/dL (74-106)
[2022-08-10 19:42] LABS: Hepatitis B Surface Antigen Non-Reactive (Nonreactive)
[2022-08-10 20:10] LABS: Bedside Glucose 15 mg/dL (74-106)
[2022-08-10 20:10] LABS: Bedside Glucose 14 mg/dL (74-106)
--- NOTE | 2022-08-10 20:58 | PCM.RX.CS ---
Consult Pharmacy has been consulted to manage selected antiobiotic: Vancomycin Type of Consult: Follow-up Prior Doses of Antibiotics Received/Current Regimen: 750mg iv q12h Labs: Sodium 138 mmol/L (136-145) 08/10/22 03:10 Potassium 3.3 mmol/L (3.5-5.1) L 08/10/22 03:10 Chloride 90 mmol/L (98-107) L 08/10/22 03:10 Carbon Dioxide 12.0 mmol/L (21.0-32.0) L 08/10/22 03:10 Anion Gap 36 (5-15) H 08/10/22 03:10 BUN 48 mg/dL (7-18) H 08/10/22 03:10 Creatinine 4.78 mg/dL (0.55-1.02) H 08/10/22 03:10 Est GFR (MDRD) Af Amer 12 mL/min (>60) L 08/10/22 03:10 Est GFR (MDRD) Non-Af 10 mL/min (>60) L 08/10/22 03:10 BUN/Creatinine Ratio 10.0 RATIO (10-20) 08/10/22 03:10 Glucose 211 mg/dL (74-106) H 08/10/22 03:10 Random Vancomycin 14.5 ug/mL (0.0-15.0) 08/10/22 08:15 Microbiology: Microbiology 08/07/22 16:50 Blood Culture (Wb) - Left Foot Blood Culture - Preliminary No growth in 48 hours. 08/07/22 16:45 Blood Culture (Wb) - Right Wrist Blood Culture - Preliminary No growth in 48 hours. 08/10/22 12:00 Stool Stool Occult Blood (ISAIAS) - Final Occult Blood Positive 08/07/22 15:30 Urine, Clean Catch Urine Culture - Final Pseudomonas fluorescens 08/07/22 15:33 Sputum, Tracheal Aspirate Gram Stain - Final 08/07/22 15:33 Sputum, Tracheal Aspirate Respiratory Culture - Final Mixed normal respiratory ny. No Streptococcus pneumoniae, beta-hemolytic Streptococcus or Staphylococcus aureus isolated. Weight used for dosin kg Estimated Creatinine Clearance: 10 ml/min Goal Trough: 15-20 mcg/mL Pharmacy Plan for Drug Dosing: CRRT stopped this evening and patient had dialysis session. Will discontinue the scheduled 750mg iv q12h order. A 1 x 750mg post HD to be given. Random level ordered for AM 08.11.22. Pharmacy Service will continue to monitor and adjust dosing as required. Follow-Up Labs: Trough Vancomycin - random 08.11.22 @0600
--- NOTE | 2022-08-10 21:32 | DIALYSIS ---
Hemodialysis x2 hours completed at 2039 on a 4K bath, 1st treatment, tolerated well, no fluid removed, gain of 500mL due to bolus given by dialysis nurse, ordered by nephrology while on HD due to BP 87/52, on Levophed during treatment, accessed via temporary left IJ, worked well with lines reversed due to sticky pull from arterial port, BFR 250, post BP 113/61
[2022-08-11] VITALS (33 sets, daily range): BP systolic 98–154; BP diastolic 50–75; PULSE 84–99; RESP 7–26; TEMP 36.3–37.4; O2SAT 80–100; BMI 34.2
[2022-08-11] MEDS: Insulin Lispro 100 UNIT/ML INSULN.PEN SC ×3 (00:37→17:52)
[2022-08-11] MEDS: Vital AF 1.2 Cal Liquid 1,000 ML 55 ML GT (01:04)
[2022-08-11 01:05] LABS: Bedside Glucose 268 mg/dL (74-106)
[2022-08-11] MEDS: 0.9% Saline Lock 10 ML Syringe IV (01:05)
[2022-08-11] MEDS: CHLORHEXIDINE GLUC 2% CLOTH 1 EACH TOWELETTE TOPICAL (01:05)
[2022-08-11] MEDS: Propofol 10MG/Ml 1,000 MG/100 ML Bottle 9.3 MG CONT INF (01:05)
[2022-08-11 04:25] LABS: Absolute Lymphocyte Count 1.34 X10^3/uL (0.83-4.51); Absolute Neutrophil Count 3.2 X10^3/uL (2.0-7.7); Basophil# 0.01 X10^3/uL; Basophil% 0.2 % (0-1); Eosinophil# 0.14 X10^3/uL; Eosinophils% 2.6 % (0-5); Hematocrit 20.7 % (37-47); Hemoglobin 6.9 g/dL (12.0-15.0); Lymphocyte # 1.34 X10^3/ul (0.83-4.51); Lymphocyte % 25.3 % (19-41); Mean Corp Hgb Conc 33.3 g/dL (32-36); Mean Corpuscular Volume 84.1 fL (81-99); Mean Platelet Vol. 11.3 fl (6.2-12.0); Monocyte# 0.61 X10^3/uL; Monocyte% 11.5 % (0-10); NRBC Flagged by Analyzer 0.8 % (0-5); Neutrophil # 3.18 X10^3/uL (2.7-7.7); Neutrophil % 60.2 % (47-70); POSITIVE COUNT YES; POSITIVE MORPHOLOGY YES; Platelet Count 52 K/mm3 (150-450); RBC Distribution Width CV 15.5 % (11.6-14.6); RBC Distribution Width SD 47.6 fl (35.1-43.9); Red Blood Count 2.46 M/mm3 (4.2-5.4); White Blood Count 5.3 K/mm3 (4.4-11.0)
[2022-08-11 04:34] LABS: Differential Indicated SCAN CRITERIA MET
[2022-08-11 04:42] LABS: ALB/GLOB Ratio 0.7 RATIO (0.9-2.4); AST(SGOT) 28 U/L (15-37); Alanine Aminotransfer ALT/SGPT 31 U/L (13-56); Albumin, Serum 1.4 g/dL (3.2-5.0); Alkaline Phosphatase 103 U/L (45-117); Anion Gap 25 (5-15); BUN 38 mg/dL (7-18); Calcium,Total 6.2 mg/dL (8.5-10.1); Chloride 89 mmol/L (98-107); Creatinine, Serum 3.16 mg/dL (0.55-1.02); EST Glomerular Filtration Rate 16 mL/min (>60); Est Glom Filt Rate - Afr Amer 19 mL/min (>60); Estimated Creatinine Clearance 14.64 ml/min; Globulin 1.9 g/dL (2.2-4.2); Glucose 309 mg/dL (74-106); Magnesium 2.1 mg/dL (1.6-2.6); Potassium 3.4 mmol/L (3.5-5.1); Protein, Total 3.3 g/dL (6.4-8.2); Sodium Level 135 mmol/L (136-145)
[2022-08-11 04:51] LABS: Phosphorus 3.7 mg/dL (2.5-4.9)
[2022-08-11 05:39] LABS: Anisocytosis 1+; Platelet Estimate MOD DEC (ADEQ)
[2022-08-11 05:50] LABS: Bedside Glucose 276 mg/dL (74-106)
[2022-08-11 06:13] LABS: Vancomycin, Random Level 17.6 ug/mL (0.0-15.0)
[2022-08-11] MEDS: Potassium Chloride 20mEq/100mL 20 MEQ/100 ML IV.SOLN. 100 MEQ IV BOLUS ×2 (07:45→09:44)
[2022-08-11] MEDS: Menthol/Lanolin/Calamine/Znox 113 GM Tube 1 APPLIC TOPICAL (09:45)
--- NOTE | 2022-08-11 09:53 | PN.CC_ITS ---
Assessment & Plan Assessment/Plan (1) Shock: (2) Hypoxia: (3) Hypothermia: PLAN: Plan RECOMMENDATIONS: 1. Continue empiric broad-spectrum antimicrobials. 2. Proceed with a trial of extubation this morning. 3. Once extubated, wean supplemental oxygen to maintain saturations at or above 90%. 4. Obtain speech therapy evaluation prior to advancing diet. 5. Transfuse blood products as ordered. Check H&H posttransfusion. 6. Gastroenterology consultation is pending. Continue PPI therapy in the interim. 7. Encourage incentive spirometer use and mobilize patient as tolerated. IMPRESSIONS: 1. Septic shock Improved. Clinical concern for an underlying pulmonary source of infection. Continue empiric broad-spectrum antimicrobials. Culture data has been largely unrevealing to date. The patient has been weaned from vasopressor support at the current time and remains hemodynamically stable. 2. Acute hypoxemic respiratory failure Improved. The patient passed her spontaneous breathing trial this morning will therefore be extubated. Once extubated, wean supplemental oxygen to maintain saturations at or above 90%. Obtain speech therapy evaluation prior to consideration for advancement of diet. Continue empiric broad-spectrum antimicrobials. 3. MARY on CKD Likely secondary to progression to ischemic ATN in the setting of #1. Continue hemodialysis support per nephrology recommendations. 4. Anemia and thrombocytopenia Unclear etiology. However, heparin-induced thrombocytopenia is a possibility for the patient's dropping platelet count. PF4 antibody was sent yesterday. Heparin has been discontinued. Continue transfusion of blood products to maintain hemoglobin at or above 7 g/dL. Continue PPI therapy twice daily as ord ered. Gastroenterology consultation is pending. 5. Diabetes mellitus type 2/seizure disorder/hypertension Complicates care, management, recovery and prognosis. Continue sliding scale insulin coverage. Continue to hold home antihypertensives. TIME: 33 minutes of critical care time, independent of procedures, was spent addressing the patient's septic shock, MARY on CKD, anemia, thrombocytopenia, review of all data and collaboration with the care team. Subjective Subjective The patient was seen and examined at the bedside this morning. Events from the last 24 hours have been reviewed. The patient is currently afebrile, hemodynamically stable and maintaining appropriate oxygen saturations on spontaneous mode mechanical ventilation with an FiO2 requirement of 30%. The patient remains significantly overall net positive from a volume perspective for the hospitalization. She did tolerate conventional HD yesterday for a short run. The patient is alert and appropriately interactive. She passed her spontaneous breathing trial this morning. Hemoglobin was down to 6.9 g/dL this morning. Platelet count has dropped to 52,000. Potassium is low at 3.4. Objective Data Objective Data The patient's most recent lab work, culture data and imaging studies have all been personally reviewed. Infectious work-up has been unrevealing to date. Stool for occult blood was positive. C. difficile was negative. Vital Signs: Vital Signs Temp Pulse Resp BP Pulse Ox O2 Del Method O2 Flow Rate 98.7 F 90 14 130/59 H 99 Nasal Cannula 2 08/11/22 09:00 08/11/22 09:00 08/11/22 09:00 08/11/22 09:00 08/11/22 09:00 08/11/22 09:00 08/11/22 09:00 FiO2 25 08/11/22 07:00 Oxygen Flow Rate (L/min) 2 Oxygen Delivery Method Nasal Cannula Weight: 185 lb 13.595 oz Body Mass Index (BMI) 34.2 Intake & Output: Intake and Output for Last 24 Hours 08/09/22 08/10/22 08/11/22 23:59 23:59 23:59 Intake Total 5052.20 / 5147.70 6664.95 / 6749.25 204.41 / 2046.41 Output Total 0 / 0 55 / 55 30 / 30 Balance 5052.20 / 5147.70 6609.95 / 6694.25 201741 / Lab / Micro Data Attestation: I reviewed the patient's lab results. Result Diagrams: 08/11/22 04:10 08/11/22 04:10 Labs: Laboratory Results - last 24 hr 08/07/22 13:30: Diff Path Review Reviewed 08/07/22 13:33: POC Glucose 122 H 08/07/22 15:56: Crossmatch See Detail 08/07/22 20:55: Diff Path Review Reviewed 08/09/22 12:22: POC Glucose 14 L* 08/09/22 12:23: POC Glucose 15 L* 08/10/22 10:30: Hgb 7.5 L, Hct 23.0 L 08/10/22 12:33: POC Glucose 248 H 08/10/22 18:02: POC Glucose 255 H 08/10/22 18:15: Hep Bs Antigen Non-Reactive 08/11/22 00:36: POC Glucose 268 H 08/11/22 04:10: WBC 5.3, RBC 2.46 L, Hgb 6.9 L, Hct 20.7 L, MCV 84.1, MCH 28.0, MCHC 33.3, RDW Std Deviation 47.6 H, RDW Coeff of Jacqueline 15.5 H, Plt Count 52 L, MPV 11.3, Immature Gran % (Auto) 0.200, Neut % (Auto) 60.2, Lymph % (Auto) 25.3, [place] % (Auto) 11.5 H, Eos % (Auto) 2.6, Baso % (Auto) 0.2, Absolute Neuts (auto) 3.2, Absolute Lymphs (auto) 1.34, Nucleated RBC % 0.8, Platelet Estimate MOD DEC, Anisocytosis 1+ 08/11/22 04:10: Sodium 135 L, Potassium 3.4 L, Chloride 89 L, Carbon Dioxide 21.0, Anion Gap 25 H, BUN 38 H, Creatinine 3.16 H, Estim Creat Clear Calc 14.64, Est GFR (MDRD) Af Amer 19 L, Est GFR (MDRD) Non-Af 16 L, BUN/Creatinine Ratio 12.0, Glucose 309 H, Calcium 6.2 L*, Magnesium 2.1, Total Bilirubin 0.30, AST 28, ALT 31, Alkaline Phosphatase 103, Total Protein 3.3 L, Albumin 1.4 L, Globulin 1.9 L, Albumin/Globulin Ratio 0.7 L 08/11/22 05:25: Random Vancomycin 17.6 H 08/11/22 05:30: POC Glucose 276 H 08/11/22 07:25: Blood Type O NEGATIVE, Antibody Screen NEGATIVE, Crossmatch See Detail 08/11/22 : Phosphorus 3.7 Micro: Microbiology 08/11/22 01:10 Stool C. difficile DNA Amplification - Final 08/07/22 16:50 Blood Culture (Wb) - Left Foot Blood Culture - Preliminary No growth in 48 hours. 08/07/22 16:45 Blood Culture (Wb) - Right Wrist Blood Culture - Preliminary No growth in 48 hours. 08/10/22 12:00 Stool Stool Occult Blood (ISAIAS) - Final Occult Blood Positive 08/07/22 15:30 Urine, Clean Catch Urine Culture - Final Pseudomonas fluorescens 08/07/22 15:33 Sputum, Tracheal Aspirate Gram Stain - Final 08/07/22 15:33 Sputum, Tracheal Aspirate Respiratory Culture - Final Mixed normal respiratory ny. No Streptococcus pneumoniae, beta-hemolytic Streptococcus or Staphylococcus aureus isolated. Radiography Diagnostic Testing: Radiology Impression Echocardiogram 08/08/22 14:11 Interpretation Summary Normal LV size. Left ventricular systolic function is normal. The estimated ejection fraction is 60 %. Pulmonary artery systolic pressure is 32 mmHg. Ordering Physician: Eliceo Kee Referring Physician: Abdirashid Anthony Performed By: Blossom Camacho, ANGELCS, RVT Chest X-Ray 08/10/22 07:35 IMPRESSION: The NG tube tip now is present in the distal esophagus with the tip facing cranially. This should be readjusted Stable appearance of the other support lines and tubes including the ET tube. No acute pulmonary process Electronically Signed: Thomas Landa MD at 11:21 EST , Chest X-Ray 08/10/22 10:50 IMPRESSION: The tip of the left temporary dialysis catheter is in the midportion of the superior vena cava. The tip of the nasogastric tube is coiled in the distal portion of the esophagus. Persistent left lower lobe infiltrate. Electronically Signed: Sunil Quintanilla MD at 11:15 EST , KUB X-Ray 08/10/22 12:28 IMPRESSION: NG/OG tube tip in the body of the stomach Electronically Signed: Thomas Landa MD at 12:51 EST , Rhythm Strip Rhythm Strip: Sinus Tach Rate: 120 Physical Exam Const Constitutional Narrative: Remains intubated and mechanically ventilated. Tolerating spontaneous mode mechanical ventilation. HEENT normocephalic and head/scalp atraumatic Mouth: endotracheal tube in place and OG tube in place Eyes PERRL, EOMs intact bilaterally and conjunctivae normal Neck supple General: trachea midline and CVC in place Chest inspection of chest normal Resp Auscultation: rhonchi and diminished lung sounds; Negative for rales or wheezes Cardio regular rate and regular rhythm GI normal to inspection, nondistended, normoactive bowel sounds Extremity General Extremity: edema Skin no rashes or lesions noted Neuro Neuro Narrative: Alert and able to follow simple commands. Charges/Coding Procedures Hospitalists Procedures: 79640 Critial Care 1st Hr
--- NOTE | 2022-08-11 10:03 | PCM.RX.CS ---
Consult Pharmacy has been consulted to manage selected antiobiotic: Vancomycin Type of Consult: Follow-up Labs: Sodium 135 mmol/L (136-145) L 08/11/22 04:10 Potassium 3.4 mmol/L (3.5-5.1) L 08/11/22 04:10 Chloride 89 mmol/L (98-107) L 08/11/22 04:10 Carbon Dioxide 21.0 mmol/L (21.0-32.0) 08/11/22 04:10 Anion Gap 25 (5-15) H 08/11/22 04:10 BUN 38 mg/dL (7-18) H 08/11/22 04:10 Creatinine 3.16 mg/dL (0.55-1.02) H 08/11/22 04:10 Est GFR (MDRD) Af Amer 19 mL/min (>60) L 08/11/22 04:10 Est GFR (MDRD) Non-Af 16 mL/min (>60) L 08/11/22 04:10 BUN/Creatinine Ratio 12.0 RATIO (10-20) 08/11/22 04:10 Glucose 309 mg/dL (74-106) H 08/11/22 04:10 Random Vancomycin 17.6 ug/mL (0.0-15.0) H 08/11/22 05:25 Microbiology: Microbiology 08/11/22 01:10 Stool C. difficile DNA Amplification - Final 08/07/22 16:50 Blood Culture (Wb) - Left Foot Blood Culture - Preliminary No growth in 48 hours. 08/07/22 16:45 Blood Culture (Wb) - Right Wrist Blood Culture - Preliminary No growth in 48 hours. 08/10/22 12:00 Stool Stool Occult Blood (ISAIAS) - Final Occult Blood Positive 08/07/22 15:30 Urine, Clean Catch Urine Culture - Final Pseudomonas fluorescens 08/07/22 15:33 Sputum, Tracheal Aspirate Gram Stain - Final 08/07/22 15:33 Sputum, Tracheal Aspirate Respiratory Culture - Final Mixed normal respiratory ny. No Streptococcus pneumoniae, beta-hemolytic Streptococcus or Staphylococcus aureus isolated. Pharmacy Plan for Drug Dosing: VANCOMYCIN LEVEL RECEIVED Current Vancomycin Dose: WAS ORDERED 750MG Q12 ON CRRT, CRRT STOPPED, NOW ON HD Number of Doses Received: 3 Vancomycin Level: 17.6 MG/DL Hours Since Last Dose: 8.5 Renal Function: HD Renal Function Trend: HD Lab/Micro: PSEUDOMONAS FLUORESCENS IN URINE CX Vancomycin Plan/Comments: WILL GIVE A 500MG X1 DOSE AFTER HD TODAY AND ORDER A RANDOM LEVEL FOR TOMORROW AM SINCE HD SCHEDULE IS UNKNOWN. Pending Level: 08/12/22 @ 0600 - RANDOM Pharmacy Service will continue to monitor and adjust dosing as required.
[2022-08-11] MEDS: levETIRAcetam IV 1,000 MG/100 ML BAG 400 MG IV ×2 (11:33→21:12)
[2022-08-11 12:55] LABS: Bedside Glucose 191 mg/dL (74-106)
--- NOTE | 2022-08-11 13:02 | DIALYSIS ---
Hemodialysis today x3hrs. Pt tolerated tx. Ran even with no fluid removed. Pt stable. 2 units PRBC transfused during HD tx. Report to TRACY Galindo
--- NOTE | 2022-08-11 13:05 | PCM.PN.REN ---
Subjective Subjective Came over to supervise during dialysis session. She is extubated. Using left temporary IJ, lines were reversed. No fluid has been removed. She is on only 1 mcg of Levophed, blood pressure is better. Still not making much urine. On nasal cannula oxygen, quite edematous Objective Data Objective Data Vital Signs: Vital Signs Temp Pulse Resp BP Pulse Ox O2 Del Method O2 Flow Rate 97.4 F L 84 23 H 141/75 H 97 Nasal Cannula 2 08/11/22 12:00 08/11/22 12:00 08/11/22 12:00 08/11/22 12:00 08/11/22 12:00 08/11/22 12:00 08/11/22 12:00 FiO2 25 08/11/22 07:00 Oxygen Flow Rate (L/min) 2 Oxygen Delivery Method Nasal Cannula Weight: 84.3 kg Body Mass Index (BMI) 34.2 Intake & Output: Intake and Output for Last 24 Hours 08/09/22 08/10/22 08/11/22 23:59 23:59 23:59 Intake Total 5052.20 / 5147.70 6664.95 / 6749.25 4307.41 / 4307.41 Output Total 0 / 0 55 / 55 40 / 40 Balance 5052.20 / 5147.70 6609.95 / 6694.25 4267.41 / 4267.41 Lab / Micro Data Attestation: I reviewed the patient's lab results. Result Diagrams: 08/11/22 04:10 08/11/22 04:10 Labs: Laboratory Results - last 24 hr 08/07/22 13:30: Diff Path Review Reviewed 08/07/22 13:33: POC Glucose 122 H 08/07/22 15:56: Crossmatch See Detail 08/07/22 20:55: Diff Path Review Reviewed 08/09/22 12:22: POC Glucose 14 L* 08/09/22 12:23: POC Glucose 15 L* 08/10/22 18:02: POC Glucose 255 H 08/10/22 18:15: Hep Bs Antigen Non-Reactive 08/11/22 00:36: POC Glucose 268 H 08/11/22 04:10: WBC 5.3, RBC 2.46 L, Hgb 6.9 L, Hct 20.7 L, MCV 84.1, MCH 28.0, MCHC 33.3, RDW Std Deviation 47.6 H, RDW Coeff of Jacqueline 15.5 H, Plt Count 52 L, MPV 11.3, Immature Gran % (Auto) 0.200, Neut % (Auto) 60.2, Lymph % (Auto) 25.3, [place] % (Auto) 11.5 H, Eos % (Auto) 2.6, Baso % (Auto) 0.2, Absolute Neuts (auto) 3.2, Absolute Lymphs (auto) 1.34, Nucleated RBC % 0.8, Platelet Estimate MOD DEC, Anisocytosis 1+ 08/11/22 04:10: Sodium 135 L, Potassium 3.4 L, Chloride 89 L, Carbon Dioxide 21.0, Anion Gap 25 H, BUN 38 H, Creatinine 3.16 H, Estim Creat Clear Calc 14.64, Est GFR (MDRD) Af Amer 19 L, Est GFR (MDRD) Non-Af 16 L, BUN/Creatinine Ratio 12.0, Glucose 309 H, Calcium 6.2 L*, Magnesium 2.1, Total Bilirubin 0.30, AST 28, ALT 31, Alkaline Phosphatase 103, Total Protein 3.3 L, Albumin 1.4 L, Globulin 1.9 L, Albumin/Globulin Ratio 0.7 L 08/11/22 05:25: Random Vancomycin 17.6 H 08/11/22 05:30: POC Glucose 276 H 08/11/22 07:25: Blood Type O NEGATIVE, Antibody Screen NEGATIVE, Crossmatch See Detail 08/11/22 12:35: POC Glucose 191 H 08/11/22 : Phosphorus 3.7 Micro: Microbiology 08/11/22 01:10 Stool C. difficile DNA Amplification - Final 08/07/22 16:50 Blood Culture (Wb) - Left Foot Blood Culture - Preliminary No growth in 48 hours. 08/07/22 16:45 Blood Culture (Wb) - Right Wrist Blood Culture - Preliminary No growth in 48 hours. 08/10/22 12:00 Stool Stool Occult Blood (ISAIAS) - Final Occult Blood Positive 08/07/22 15:30 Urine, Clean Catch Urine Culture - Final Pseudomonas fluorescens 08/07/22 15:33 Sputum, Tracheal Aspirate Gram Stain - Final 08/07/22 15:33 Sputum, Tracheal Aspirate Respiratory Culture - Final Mixed normal respiratory ny. No Streptococcus pneumoniae, beta-hemolytic Streptococcus or Staphylococcus aureus isolated. Rhythm Strip Rhythm Strip: Sinus Tach Rate: 120 Physical Exam Const alert, no apparent distress and average body habitus Orientation / Consciousness: oriented to person HEENT normocephalic Head and Scalp: atraumatic Resp Auscultation: rhonchi and diminished lung sounds Cardio Cardio Narrative: Tachycardic GI non-tender Skin no rashes or lesions noted Neuro Sensorium / Orientation: awake and alert Psych cooperative Assessment & Plan Assessment/Plan (1) MARY (acute kidney injury): PLAN: Today is treatment #2, acidosis is better, still makes no urine's, so no renal function. She is quite fluid overloaded, but there is no respiratory compromise and she was able to get extubated. Blood pressure has improved as well, requires less pressors. PLAN: Plan Continue dialysis today, reassess acidosis, anion gap and kidney function tomorrow. If starts making urine, I will try to use diuretics. Reassess for dialysis needs tomorrow
[2022-08-11] MEDS: Vancomycin IV 500 MG/100 ML BAG 100 MG IV (13:29)
[2022-08-11 13:33] LABS: Absolute Lymphocyte Count 1.53 X10^3/uL (0.83-4.51); Absolute Neutrophil Count 5.1 X10^3/uL (2.0-7.7); Basophil# 0.04 X10^3/uL; Basophil% 0.5 % (0-1); Eosinophil# 0.24 X10^3/uL; Hemoglobin 11.8 g/dL (12.0-15.0); Lymphocyte # 1.53 X10^3/ul (0.83-4.51); Lymphocyte % 19.1 % (19-41); Mean Corp Hgb Conc 34.7 g/dL (32-36); Mean Corpuscular Hgb 28.7 pg (27.0-32.0); Mean Corpuscular Volume 82.7 fL (81-99); Mean Platelet Vol. 11.3 fl (6.2-12.0); Monocyte# 1.03 X10^3/uL; Monocyte% 12.8 % (0-10); NRBC Flagged by Analyzer 0.6 % (0-5); Neutrophil # 5.12 X10^3/uL (2.7-7.7); Neutrophil % 63.9 % (47-70); POSITIVE COUNT YES; RBC Distribution Width CV 14.6 % (11.6-14.6); RBC Distribution Width SD 43.8 fl (35.1-43.9); Red Blood Count 4.11 M/mm3 (4.2-5.4)
[2022-08-11 13:38] LABS: Differential Indicated SCAN CRITERIA MET; Platelet Count 48 K/mm3 (150-450)
[2022-08-11 13:57] LABS: Differential Comment SCANNED; Platelet Estimate MKD DEC (ADEQ)
--- NOTE | 2022-08-11 14:43 | PCM.PN.HOSP ---
Reason for Visit Reason for Visit: Unresponsiveness Subjective Subjective Patient was extubated this morning. She is awake on nasal cannula and is able to tell me her name and birthdate. She is confused as to location and tells me she is at [facility]. Quite emotional. Objective Data Objective Data Vital Signs: Vital Signs Temp Pulse Resp BP Pulse Ox O2 Del Method O2 Flow Rate 97.8 F 93 21 H 144/66 H 96 Nasal Cannula 4 08/11/22 14:00 08/11/22 14:00 08/11/22 14:00 08/11/22 14:00 08/11/22 14:00 08/11/22 14:00 08/11/22 14:00 FiO2 25 08/11/22 07:00 Oxygen Flow Rate (L/min) 4 Oxygen Delivery Method Nasal Cannula Weight: 84.3 kg Body Mass Index (BMI) 34.2 Intake & Output: Intake and Output for Last 24 Hours 08/09/22 08/10/22 08/11/22 23:59 23:59 23:59 Intake Total 5052.20 / 5147.70 6664.95 / 6749.25 4407.41 / 4407.41 Output Total 0 / 0 55 / 55 40 / 40 Balance 5052.20 / 5147.70 6609.95 / 6694.25 4367.41 / 4367.41 Lab / Micro Data Result Diagrams: 08/11/22 13:20 08/11/22 04:10 Labs: Laboratory Results - last 24 hr 08/07/22 13:33: POC Glucose 122 H 08/07/22 15:56: Crossmatch See Detail 08/09/22 12:22: POC Glucose 14 L* 08/09/22 12:23: POC Glucose 15 L* 08/10/22 18:02: POC Glucose 255 H 08/10/22 18:15: Hep Bs Antigen Non-Reactive 08/11/22 00:36: POC Glucose 268 H 08/11/22 04:10: WBC 5.3, RBC 2.46 L, Hgb 6.9 L, Hct 20.7 L, MCV 84.1, MCH 28.0, MCHC 33.3, RDW Std Deviation 47.6 H, RDW Coeff of Jacqueline 15.5 H, Plt Count 52 L, MPV 11.3, Immature Gran % (Auto) 0.200, Neut % (Auto) 60.2, Lymph % (Auto) 25.3, [place] % (Auto) 11.5 H, Eos % (Auto) 2.6, Baso % (Auto) 0.2, Absolute Neuts (auto) 3.2, Absolute Lymphs (auto) 1.34, Nucleated RBC % 0.8, Platelet Estimate MOD DEC, Anisocytosis 1+ 08/11/22 04:10: Sodium 135 L, Potassium 3.4 L, Chloride 89 L, Carbon Dioxide 21.0, Anion Gap 25 H, BUN 38 H, Creatinine 3.16 H, Estim Creat Clear Calc 14.64, Est GFR (MDRD) Af Amer 19 L, Est GFR (MDRD) Non-Af 16 L, BUN/Creatinine Ratio 12.0, Glucose 309 H, Calcium 6.2 L*, Magnesium 2.1, Total Bilirubin 0.30, AST 28, ALT 31, Alkaline Phosphatase 103, Total Protein 3.3 L, Albumin 1.4 L, Globulin 1.9 L, Albumin/Globulin Ratio 0.7 L 08/11/22 05:25: Random Vancomycin 17.6 H 08/11/22 05:30: POC Glucose 276 H 08/11/22 07:25: Blood Type O NEGATIVE, Antibody Screen NEGATIVE, Crossmatch See Detail 08/11/22 12:35: POC Glucose 191 H 08/11/22 13:20: WBC 8.0, RBC 4.11 L, Hgb 11.8 L, Hct 34.0 L, MCV 82.7, MCH 28.7, MCHC 34.7, RDW Std Deviation 43.8, RDW Coeff of Jacqueline 14.6, Plt Count 48 L*, MPV 11.3, Immature Gran % (Auto) 0.700, Neut % (Auto) 63.9, Lymph % (Auto) 19.1, [place] % (Auto) 12.8 H, Eos % (Auto) 3.0, Baso % (Auto) 0.5, Absolute Neuts (auto) 5.1, Absolute Lymphs (auto) 1.53, Nucleated RBC % 0.6, Differential Comment SCANNED, Diff Path Review October foll, Platelet Estimate MKD DEC 08/11/22 : Phosphorus 3.7 Micro: Microbiology 08/11/22 01:10 Stool C. difficile DNA Amplification - Final 08/07/22 16:50 Blood Culture (Wb) - Left Foot Blood Culture - Preliminary No growth in 48 hours. 08/07/22 16:45 Blood Culture (Wb) - Right Wrist Blood Culture - Preliminary No growth in 48 hours. 08/10/22 12:00 Stool Stool Occult Blood (ISAIAS) - Final Occult Blood Positive 08/07/22 15:30 Urine, Clean Catch Urine Culture - Final Pseudomonas fluorescens 08/07/22 15:33 Sputum, Tracheal Aspirate Gram Stain - Final 08/07/22 15:33 Sputum, Tracheal Aspirate Respiratory Culture - Final Mixed normal respiratory ny. No Streptococcus pneumoniae, beta-hemolytic Streptococcus or Staphylococcus aureus isolated. Rhythm Strip Rhythm Strip: Sinus Tach Rate: 120 Physical Exam Narrative Const alert, no apparent distress and well nourished Constitutional Narrative: Middle-aged white female, extubated this morning, alert on nasal cannula, oriented to self only at this time, seems somewhat overwhelmed, tearful at times, dialysis nurse at bedside HEENT head/scalp atraumatic and moist oral mucous membranes HEENT Narrative: Mallampati 3, no thrush, dentition is good Head and Scalp: normocephalic Resp normal respiratory effort, no retractions and no use of accessory muscles Resp Narrative: On nasal cannula at 4 L, scattered rhonchi anteriorly and posteriorly post extubation Auscultation: rhonchi; Negative for crackles or wheezes Cardio regular rate, regular rhythm, S1 normal heart sound, S2 normal heart sound, no murmurs, no rub, no gallops, no clicks and no JVD GI normal to inspection, nondistended, normoactive bowel sounds, soft to palpation and non-tender Extremity no clubbing, cyanosis or edema Extremity Narrative: 2+ pedal pulses, 2+ pitting edema bilateral lower and upper extremities, no cyanosis or clubbing Skin Skin Narrative: Skin is pale Neuro CN's II-XII intact bilaterally Neuro Narrative: Patient able to move all extremities symmetrically, marked diffuse weakness but no focal deficits, oriented to self only at this time, speech is soft Speech: Negative for speech normal Motor Exam: Negative for strength 5/5 throughout Psych Psych Narrative: Eye contact is good affect is slightly flat and patient is tearful at times Assessment & Plan Assessment/Plan (1) Acute hypotension: (2) Shock: (3) Metabolic acidosis: (4) Toxic metabolic encephalopathy: (5) Acute respiratory failure with hypoxia and hypercapnia: (6) Hypothermia: (7) Vitamin D deficiency: (8) Lactic acidosis: (9) Acute renal failure: (10) Bradycardia: (11) Acute respiratory failure with hypoxia: (12) Hypomagnesemia: (13) Anemia: (14) Thrombocytopenia: (15) Hypokalemia: PLAN: Plan Shock -Etiology is unclear as cultures are unremarkable overall -Resolved -Patient is off pressors Acute hypoxic respiratory failure -Initial ABG demonstrated pH of less than 6.5 with a PCO2 of 26.4 and a PO2 of 282 -Intubated on presentation 08/07/2022 -Extubated 08/11/2022 -Currently requiring 4 L nasal cannula -Wean as possible -Aggressive incentive spirometry -Pep therapy Anion gap metabolic acidosis -Suspect multifactorial from MARY and lactic acidosis -Bicarb drip per nephrology -Continue HD -Anion gap is still elevated at 25 -Nephrology suspects this may be related to metformin -Metformin level sent--> pending results -Nephrology following-appreciate input Lactic acidosis -Resolved -Likely cleared with dialysis -? Metformin toxicity -Level is pending -This is a send out and will take time MARY on CKD stage IIIb -Baseline serum creatinine appears to be between 1.5 and 1.7 -Serum creatinine at presentation was 5.6 -Serum creat 3.16 after dialysis yesterday -Remains oliguric -Nephrology Following -Dialysis per nephrology Acute anemia -Hemoglobin with significant drop to 6.6 on the a.m. of 08/10/2022 and required 1 unit of blood--> repeat improved to 7.5--> hemoglobin down again on the a.m. of 08/11/2022 at 6.9--> 2 units packed red blood cells given--> afternoon repeat hemoglobin 11.8 -9.3 admission -Guaiac was positive -Continue Protonix drip -Repeat CBC in a.m. -GI consultation is pending -Patient with recent colonoscopy done at [facility] in [place] done by Dr. Drew Thrombocytopenia -This is new -Lately count normal at 213,000 yesterday and now down further to 48,000 -Stopped subcu heparin on 08/10/2022 3 and avoid anticoagulation -HIT antibody is pending -Coags assessed and there are no signs of DIC at this point -Repeat CBC in a.m. Hypomagnesemia -Resolved Hypokalemia -Replacement in progress again today -Reassess in a.m. Toxic/metabolic encephalopathy -CT of the brain shows no acute findings -Old vascular disease noted -Should continue to improve as metabolic issues normalize DM-2 -BGT's are now elevated -Continue sliding scale insulin for now -Basal insulin discontinued as patient had some hypoglycemia issues 08/09/2022 -Suspect related to renal failure and retention of insulin with decreased renal clearance and now that on dialysis can restart basal insulin -Reinitiate basal insulin at 20 units at at bedtime -Accu-Cheks as ordered Seizure disorder -Continue IV Keppra--> transition to oral once cleared for diet Chronic headaches -Lamictal and Topamax are for these -Restart these medications once cleared for diet Vitamin D deficiency -Restart vitamin D supplementation at discharge Hypertension -Off pressors -Patient now normotensive -Continue to hold amlodipine/HCTZ/ANUM inhibitor -Monitor for to the ability to restart -As needed hydralazine GERD -Protonix drip for now Pancreatic insufficiency -Hold Creon -Restart when p.o. intake has been reinitiated Depression/insomnia -Hold Effexor -Hold trazodone DVT prophylaxis -Continue heparin 5000 units 3 times daily CODE STATUS -Full code Charges/Coding Visit Charges Inpatient E&M: 27306 Subs Hosp L2
--- NOTE | 2022-08-11 15:10 | NURSING ---
Patient O2 sat dropped to 84% she was placed on 10L High Flow oxygen.
[2022-08-11 18:20] LABS: Bedside Glucose 267 mg/dL (74-106)
--- NOTE | 2022-08-11 22:23 | PCM.PN.BLA ---
Progress Note Patient with increased oxygen requirements over the course of the evening, no on 10L and from nursing staff report onset following dialysis treatment. Will obtain ABG and will place on BIPAP given course breath sounds. Discussed with RT and will re-discuss changes needed pending BIPAP versus airvo tolerance and ABG findings. Patient of note was just extubated this AM.
--- NOTE | 2022-08-11 22:31 | RAD_ITS ---
INDICATION: Dyspnea EXAMINATION/TECHNIQUE: X-RAY - XR Chest 1 View COMPARISON: 08/10/2022. FINDINGS: Interval worsening of infiltrates in the left lung. The cardiomediastinal silhouette is stable. Unchanged position of right PICC. Interval removal of endotracheal tube and NG tube. New small right and moderate left pleural effusions. No pneumothorax. The osseous structures are unchanged. RAD/Chest 1 View (Portable) IMPRESSION: Interval removal of endotracheal tube and NG tube. Interval worsening of infiltrates in the left lung. New small right and moderate left pleural effusions. Electronically Signed: Gadiel Gaviria MD at 22:50 EST ,
[2022-08-12] VITALS (30 sets, daily range): BP systolic 94–141; BP diastolic 63–87; PULSE 86–104; RESP 11–20; TEMP 36.7–37.8; O2SAT 89–100; BMI 35.3
[2022-08-12 00:20] LABS: Allen Test Positive; Base Excess 7 mmol/L (-2 to +2); Bicarbonate 30.7 mmol/L (22-26); Blood Gas Specimen Type ART; FI02 80; O2 Delivery Device BiPAP; PEEP 8; PO2 88 mmHG (75-100); RR 12; SITE L Radial; SO2 97 % (95-99); Total Carbon Dioxide 32 mmol/L; Vt 400; pCO2 41.1 mmHg (35-45); pH 7.48 (7.35-7.45)
[2022-08-12] MEDS: Insulin Glargine-YFGN 100 UNIT/ML Pen 20 UNIT SC (00:42)
[2022-08-12] MEDS: Insulin Lispro 100 UNIT/ML INSULN.PEN SC (00:42)
[2022-08-12] MEDS: Menthol/Lanolin/Calamine/Znox 113 GM Tube 1 APPLIC TOPICAL ×3 (00:45→17:26)
[2022-08-12 00:46] LABS: Bedside Glucose 268 mg/dL (74-106)
[2022-08-12 04:33] LABS: Absolute Lymphocyte Count 1.35 X10^3/uL (0.83-4.51); Absolute Neutrophil Count 3.9 X10^3/uL (2.0-7.7); Basophil# 0.03 X10^3/uL; Basophil% 0.5 % (0-1); Eosinophil# 0.12 X10^3/uL; Eosinophils% 1.8 % (0-5); Hematocrit 37.3 % (37-47); Hemoglobin 12.9 g/dL (12.0-15.0); Lymphocyte # 1.35 X10^3/ul (0.83-4.51); Lymphocyte % 20.5 % (19-41); Mean Corp Hgb Conc 34.6 g/dL (32-36); Mean Corpuscular Volume 80.9 fL (81-99); Mean Platelet Vol. 12.7 fl (6.2-12.0); Monocyte# 1.08 X10^3/uL; Monocyte% 16.4 % (0-10); NRBC Flagged by Analyzer 0.8 % (0-5); Neutrophil # 3.89 X10^3/uL (2.7-7.7); POSITIVE COUNT YES; RBC Distribution Width CV 14.7 % (11.6-14.6); RBC Distribution Width SD 43.1 fl (35.1-43.9); Red Blood Count 4.61 M/mm3 (4.2-5.4); White Blood Count 6.6 K/mm3 (4.4-11.0)
[2022-08-12 04:43] LABS: Differential Indicated SCAN CRITERIA MET; Platelet Count 46 K/mm3 (150-450)
[2022-08-12 04:45] LABS: Anion Gap 12 (5-15); BUN 26 mg/dL (7-18); BUN/Creat Ratio 11.2 RATIO (10-20); Calcium,Total 6.5 mg/dL (8.5-10.1); Chloride 92 mmol/L (98-107); Creatinine, Serum 2.33 mg/dL (0.55-1.02); EST Glomerular Filtration Rate 23 mL/min (>60); Est Glom Filt Rate - Afr Amer 28 mL/min (>60); Estimated Creatinine Clearance 19.86 ml/min; Glucose 167 mg/dL (74-106); Potassium 3.1 mmol/L (3.5-5.1); Sodium Level 136 mmol/L (136-145)
[2022-08-12 06:06] LABS: Bedside Glucose 158 mg/dL (74-106)
[2022-08-12 07:05] LABS: Platelet Estimate ADEQUATE (ADEQ)
--- NOTE | 2022-08-12 07:29 | PN.CC_ITS ---
Assessment & Plan Assessment/Plan (1) Shock: (2) Hypoxia: (3) Hypothermia: PLAN: Plan RECOMMENDATIONS: 1. Continue empiric antimicrobials. 2. Continue to wean supplemental oxygen to maintain saturations at or above 90%. 3. Speech therapy evaluation prior to advancing diet. 4. The patient is in need of volume optimization through hemodialysis. Will defer to nephrology. 5. Continue PPI therapy. 6. Monitor blood counts daily and transfuse if hemoglobin drops below 7 g/dL. 7. Encourage incentive spirometer use and mobilize patient as tolerated. IMPRESSIONS: 1. Septic shock Improved. Clinical concern for an underlying pulmonary source of infection. Continue empiric broad-spectrum antimicrobials. Culture data has been largely unrevealing to date. The patient has been weaned from vasopressor support at the current time and remains hemodynamically stable. 2. Acute hypoxemic respiratory failure Improved. The patient was able to be successfully extubated on August 11, but remains significantly volume overloaded for the hospitalization. Recommend volume optimization through hemodialysis, per nephrology recommendations. In the interim, continue to wean supplemental oxygen to maintain saturations at or above 90%. Speech therapy to evaluate the patient prior to advancement of diet. Continue antibiotics as ordered. 3. MARY on CKD Likely secondary to progression to ischemic ATN in the setting of #1. Continue hemodialysis support per nephrology recommendations. 4. Anemia and thrombocytopenia Unclear etiology. However, heparin-induced thrombocytopenia is a possibility for the patient's dropping platelet count. PF4 antibody is pending. Heparin has been discontinued. Continue transfusion of blood products to maintain hemoglobin at or above 7 g/dL. Continue PPI therapy twice daily as ordered. 5. Diabetes mellitus type 2/seizure disorder/hypertension Complicates care, management, recovery and prognosis. Continue sliding scale insulin coverage. Continue to hold home antihypertensives. This note was generated with [employer] dictation software. It may contain incorrect words, spelling, and punctuation that were not noted in checking the note before signing. Subjective Subjective The patient was seen and examined at the bedside this morning. Events from the last 24 hours have been reviewed. The patient is currently afebrile and hemodynamically stable. Overnight, the patient had to be started on BiPAP therapy due to refractory hypoxemia. She wore the PAP therapy for approximately 4 to 5 hours and was able to be successfully transition back to nasal cannula at 6 L/min this morning. The patient again tolerated dialysis yesterday. She remains significantly volume positive for the hospitalization. Platelet count remains low at 46,000. Objective Data Objective Data The patient's most recent lab work, culture data and imaging studies have all been personally reviewed. Infectious work-up has been unrevealing to date. Stool for occult blood was positive. C. difficile was negative. Vital Signs: Vital Signs Temp Pulse Resp BP Pulse Ox O2 Del Method O2 Flow Rate 99.7 F H 93 18 122/76 H 99 Nasal Cannula 6 08/12/22 04:00 08/12/22 07:00 08/12/22 07:00 08/12/22 07:00 08/12/22 07:00 08/12/22 07:00 08/12/22 07:00 FiO2 50 08/12/22 04:00 Oxygen Flow Rate (L/min) 6 Oxygen Delivery Method Nasal Cannula Weight: 192 lb 0.362 oz Body Mass Index (BMI) 35.3 Intake & Output: Intake and Output for Last 24 Hours 08/10/22 08/11/22 08/12/22 23:59 23:59 23:59 Intake Total 6664.95 / 6749.25 5764.91 / 5764.91 857.5 / 857.5 Output Total 55 / 55 60 / 60 0 / 0 Balance 6609.95 / 6694.25 5704.91 / 5704.91 857.5 / 857.5 Lab / Micro Data Attestation: I reviewed the patient's lab results. Result Diagrams: 08/12/22 04:15 08/12/22 04:15 Labs: Laboratory Results - last 24 hr 08/07/22 15:56: Crossmatch See Detail 08/11/22 07:25: Blood Type O NEGATIVE, Antibody Screen NEGATIVE, Crossmatch See Detail 08/11/22 12:35: POC Glucose 191 H 08/11/22 13:20: WBC 8.0, RBC 4.11 L, Hgb 11.8 L, Hct 34.0 L, MCV 82.7, MCH 28.7, MCHC 34.7, RDW Std Deviation 43.8, RDW Coeff of Jacqueline 14.6, Plt Count 48 L*, MPV 11.3, Immature Gran % (Auto) 0.700, Neut % (Auto) 63.9, Lymph % (Auto) 19.1, [place] % (Auto) 12.8 H, Eos % (Auto) 3.0, Baso % (Auto) 0.5, Absolute Neuts (auto) 5.1, Absolute Lymphs (auto) 1.53, Nucleated RBC % 0.6, Differential Comment SCANNED, Diff Path Review October christen, Platelet Estimate MKD 08/11/22 17:51: POC Glucose 267 H 08/12/22 00:22: POC Glucose 268 H 08/12/22 04:15: WBC 6.6, RBC 4.61, Hgb 12.9, Hct 37.3, MCV 80.9 L, MCH 28.0, MCHC 34.6, RDW Std Deviation 43.1, RDW Coeff of Jacqueline 14.7 H, Plt Count 46 L*, MPV 12.7 H, Immature Gran % (Auto) 1.800 H, Neut % (Auto) 59.0, Lymph % (Auto) 20.5, [place] % (Auto) 16.4 H, Eos % (Auto) 1.8, Baso % (Auto) 0.5, Absolute Neuts (auto) 3.9, Absolute Lymphs (auto) 1.35, Nucleated RBC % 0.8, Diff Path Review October christen, Platelet Estimate ADEQUATE 08/12/22 04:15: Sodium 136, Potassium 3.1 L, Chloride 92 L, Carbon Dioxide 32.0, Anion Gap 12, BUN 26 H, Creatinine 2.33 H, Estim Creat Clear Calc 19.86, Est GFR (MDRD) Af Amer 28 L, Est GFR (MDRD) Non-Af 23 L, BUN/Creatinine Ratio 11.2, Glucose 167 H, Calcium 6.5 L* 08/12/22 05:47: POC Glucose 158 H Micro: Microbiology 08/11/22 01:10 Stool C. difficile DNA Amplification - Final 08/07/22 16:50 Blood Culture (Wb) - Left Foot Blood Culture - Preliminary No growth in 48 hours. 08/07/22 16:45 Blood Culture (Wb) - Right Wrist Blood Culture - Preliminary No growth in 48 hours. 08/10/22 12:00 Stool Stool Occult Blood (ISAIAS) - Final Occult Blood Positive 08/07/22 15:30 Urine, Clean Catch Urine Culture - Final Pseudomonas fluorescens 08/07/22 15:33 Sputum, Tracheal Aspirate Gram Stain - Final 08/07/22 15:33 Sputum, Tracheal Aspirate Respiratory Culture - Final Mixed normal respiratory ny. No Streptococcus pneumoniae, beta-hemolytic Streptococcus or Staphylococcus aureus isolated. ABG Data ABG results: ABG 08/12/22 00:14 Specimen Type ART Sample Site L Radial pH 7.48 H Bicarbonate Actual 30.7 H Total CO2 32 Base Excess 7 H O2 Saturation 97 O2 % 80 ABG pCO2 41.1 ABG pO2 88 Scottie Test Positive Respiration Rate 12 O2 Delivery Device BiPAP Tidal Volume 400 POC PEEP 8 Radiography Diagnostic Testing: Radiology Impression Chest X-Ray 08/11/22 22:31 IMPRESSION: Interval removal of endotracheal tube and NG tube. Interval worsening of infiltrates in the left lung. New small right and moderate left pleural effusions. Electronically Signed: Gadiel Gaviria MD at 22:50 EST , Rhythm Strip Rhythm Strip: Sinus Tach Rate: 120 Physical Exam Const alert and no apparent distress General Appearance: lethargic Orientation / Consciousness: confused Nutritional Appearance: obese HEENT normocephalic and head/scalp atraumatic Eyes PERRL, EOMs intact bilaterally and conjunctivae normal Neck supple General: trachea midline and CVC in place Chest inspection of chest normal Resp Auscultation: diminished lung sounds; Negative for rales, rhonchi or wheezes Cardio regular rate and regular rhythm GI normal to inspection, nondistended, normoactive bowel sounds Extremity General Extremity: edema Skin no rashes or lesions noted Neuro CN's II-XII intact bilaterally and no focal motor deficits Psych Mood & Affect: flat affect Charges/Coding Visit Charges Inpatient E&M: 59400 Subs Hosp L3
[2022-08-12] MEDS: Potassium Chloride 20mEq/100mL 20 MEQ/100 ML IV.SOLN. 100 MEQ IV BOLUS ×2 (08:26→09:42)
--- NOTE | 2022-08-12 10:28 | PN.RENAL_ITS ---
Subjective Subjective Follow-up on acute kidney injury. Second dialysis treatment yesterday, there was no fluid removal. She remains extubated, awake, appropriate. Makes very little urine. Very edematous. Requires nasal cannula oxygen. Objective Data Objective Data Vital Signs: Vital Signs Temp Pulse Resp BP Pulse Ox O2 Del Method O2 Flow Rate 99.7 F H 93 18 122/76 H 96 Nasal Cannula 4 08/12/22 04:00 08/12/22 07:00 08/12/22 07:00 08/12/22 07:00 08/12/22 08:00 08/12/22 08:00 08/12/22 08:00 FiO2 50 08/12/22 04:00 Oxygen Flow Rate (L/min) 4 Oxygen Delivery Method Nasal Cannula Weight: 87.1 kg Body Mass Index (BMI) 35.3 Intake & Output: Intake and Output for Last 24 Hours 08/10/22 08/11/22 08/12/22 23:59 23:59 23:59 Intake Total 6664.95 / 6749.25 5764.91 / 5764.91 957.5 / 957.5 Output Total 55 / 55 60 / 60 0 / 0 Balance 6609.95 / 6694.25 5704.91 / 5704.91 957.5 / 957.5 Lab / Micro Data Attestation: I reviewed the patient's lab results. Result Diagrams: 08/12/22 04:15 08/12/22 04:15 Labs: Laboratory Results - last 24 hr 08/11/22 07:25: Blood Type O NEGATIVE, Antibody Screen NEGATIVE, Crossmatch See Detail 08/11/22 12:35: POC Glucose 191 H 08/11/22 13:20: WBC 8.0, RBC 4.11 L, Hgb 11.8 L, Hct 34.0 L, MCV 82.7, MCH 28.7, MCHC 34.7, RDW Std Deviation 43.8, RDW Coeff of Jacqueline 14.6, Plt Count 48 L*, MPV 11.3, Immature Gran % (Auto) 0.700, Neut % (Auto) 63.9, Lymph % (Auto) 19.1, [place] % (Auto) 12.8 H, Eos % (Auto) 3.0, Baso % (Auto) 0.5, Absolute Neuts (auto) 5.1, Absolute Lymphs (auto) 1.53, Nucleated RBC % 0.6, Differential Comment SCANNED, Diff Path Review October christen Platelet Estimate MKD 08/11/22 17:51: POC Glucose 267 H 08/12/22 00:22: POC Glucose 268 H 08/12/22 04:15: WBC 6.6, RBC 4.61, Hgb 12.9, Hct 37.3, MCV 80.9 L, MCH 28.0, MCHC 34.6, RDW Std Deviation 43.1, RDW Coeff of Jacqueline 14.7 H, Plt Count 46 L*, MPV 12.7 H, Immature Gran % (Auto) 1.800 H, Neut % (Auto) 59.0, Lymph % (Auto) 20.5, [place] % (Auto) 16.4 H, Eos % (Auto) 1.8, Baso % (Auto) 0.5, Absolute Neuts (auto) 3.9, Absolute Lymphs (auto) 1.35, Nucleated RBC % 0.8, Diff Path Review October christen Platelet Estimate ADEQUATE 08/12/22 04:15: Sodium 136, Potassium 3.1 L, Chloride 92 L, Carbon Dioxide 32.0, Anion Gap 12, BUN 26 H, Creatinine 2.33 H, Estim Creat Clear Calc 19.86, Est GFR (MDRD) Af Amer 28 L, Est GFR (MDRD) Non-Af 23 L, BUN/Creatinine Ratio 11.2, G lucose 167 H, Calcium 6.5 L* 08/12/22 05:47: POC Glucose 158 H Micro: Microbiology 08/11/22 01:10 Stool C. difficile DNA Amplification - Final 08/07/22 16:50 Blood Culture (Wb) - Left Foot Blood Culture - Preliminary No growth in 48 hours. 08/07/22 16:45 Blood Culture (Wb) - Right Wrist Blood Culture - Preliminary No growth in 48 hours. 08/10/22 12:00 Stool Stool Occult Blood (ISAIAS) - Final Occult Blood Positive 08/07/22 15:30 Urine, Clean Catch Urine Culture - Final Pseudomonas fluorescens 08/07/22 15:33 Sputum, Tracheal Aspirate Gram Stain - Final 08/07/22 15:33 Sputum, Tracheal Aspirate Respiratory Culture - Final Mixed normal respiratory ny. No Streptococcus pneumoniae, beta-hemolytic Streptococcus or Staphylococcus aureus isolated. ABG Data ABG results: ABG 08/12/22 00:14 Specimen Type ART Sample Site L Radial pH 7.48 H Bicarbonate Actual 30.7 H Total CO2 32 Base Excess 7 H O2 Saturation 97 O2 % 80 ABG pCO2 41.1 ABG pO2 88 Scottie Test Positive Respiration Rate 12 O2 Delivery Device BiPAP Tidal Volume 400 POC PEEP 8 Radiography Diagnostic Testing: Radiology Impression Chest X-Ray 08/11/22 22:31 IMPRESSION: Interval removal of endotracheal tube and NG tube. Interval worsening of infiltrates in the left lung. New small right and moderate left pleural effusions. Electronically Signed: Gadiel Gaviria MD at 22:50 EST , Rhythm Strip Rhythm Strip: Sinus Tach Rate: 120 Physical Exam Narrative Awake, oriented, comfortable Anasarca Head is atraumatic normocephalic Chest with diminished breath sounds at the left base Heart is tachycardic Abdomen is benign 3+ pitting edema Const no apparent distress Assessment & Plan Assessment/Plan (1) MARY (acute kidney injury): PLAN: Acute kidney injury on CKD 3B, oliguric, ischemic ATN. Very edematous. No significant respiratory compromise PLAN: Plan We will dialyze today mostly for ultrafiltration.
[2022-08-12] MEDS: levETIRAcetam IV 1,000 MG/100 ML BAG 400 MG IV ×2 (10:35→21:03)
[2022-08-12] MEDS: CHLORHEXIDINE GLUC 2% CLOTH 1 EACH TOWELETTE TOPICAL (11:02)
[2022-08-12] MEDS: Dextrose 50%-Water 25 GM/50 ML DISP.SYRIN IV ×2 (11:11→16:55)
[2022-08-12 11:25] LABS: Bedside Glucose 65 mg/dL (74-106)
--- NOTE | 2022-08-12 11:43 | CASEMGMT ---
Social Work SW participated in ICU rounds this morning. Pt has not yet participated in therapy. SW will continue to follow for possible skilled nursing placement. JAIMIE Guardado
[2022-08-12 13:27] LABS: Pathologist Review Reviewed
[2022-08-12 13:42] LABS: Pathologist Review Reviewed
--- NOTE | 2022-08-12 15:34 | PN.HOSP_ITS ---
Reason for Visit Reason for Visit: Unresponsiveness Subjective Subjective Patient with increasing oxygen requirements overnight and had initially been placed on BiPAP. Improved and now back to 6 L. Patient's mentation seems to be improved since extubation yesterday morning. Hopeful for fluid removal today with dialysis. Patient is markedly positive at almost 30 L. Objective Data Objective Data Vital Signs: Vital Signs Temp Pulse Resp BP Pulse Ox O2 Del Method O2 Flow Rate 99.0 F 91 17 125/73 H 98 Nasal Cannula 5 08/12/22 12:00 08/12/22 13:00 08/12/22 12:00 08/12/22 13:00 08/12/22 13:00 08/12/22 13:00 08/12/22 14:29 FiO2 50 08/12/22 04:00 Oxygen Flow Rate (L/min) 5 Oxygen Delivery Method Nasal Cannula Weight: 87.1 kg Body Mass Index (BMI) 35.3 Intake & Output: Intake and Output for Last 24 Hours 08/10/22 08/11/22 08/12/22 23:59 23:59 23:59 Intake Total 6664.95 / 6749.25 5764.91 / 5764.91 1317.5 / 1317.5 Output Total 55 / 55 60 / 60 110 / 110 Balance 6609.95 / 6694.25 5704.91 / 5704.91 1207.5 / 1207.5 Lab / Micro Data Result Diagrams: 08/12/22 04:15 08/12/22 04:15 Labs: Laboratory Results - last 24 hr 08/11/22 13:20: Diff Path Review Reviewed 08/11/22 17:51: POC Glucose 267 H 08/12/22 00:22: POC Glucose 268 H 08/12/22 04:15: WBC 6.6, RBC 4.61, Hgb 12.9, Hct 37.3, MCV 80.9 L, MCH 28.0, MCHC 34.6, RDW Std Deviation 43.1, RDW Coeff of Jacqueline 14.7 H, Plt Count 46 L*, MPV 12.7 H, Immature Gran % (Auto) 1.800 H, Neut % (Auto) 59.0, Lymph % (Auto) 20.5, [place] % (Auto) 16.4 H, Eos % (Auto) 1.8, Baso % (Auto) 0.5, Absolute Neuts (auto) 3.9, Absolute Lymphs (auto) 1.35, Nucleated RBC % 0.8, Diff Path Review Reviewed, Platelet Estimate ADEQUATE 08/12/22 04:15: Sodium 136, Potassium 3.1 L, Chloride 92 L, Carbon Dioxide 32.0, Anion Gap 12, BUN 26 H, Creatinine 2.33 H, Estim Creat Clear Calc 19.86, Est GFR (MDRD) Af Amer 28 L, Est GFR (MDRD) Non-Af 23 L, BUN/Creatinine Ratio 11.2, Glucose 167 H, Calcium 6.5 L* 08/12/22 05:47: POC Glucose 158 H 08/12/22 11:00: POC Glucose 65 L Micro: Microbiology 08/11/22 01:10 Stool C. difficile DNA Amplification - Final 08/07/22 16:50 Blood Culture (Wb) - Left Foot Blood Culture - Preliminary No growth in 48 hours. 08/07/22 16:45 Blood Culture (Wb) - Right Wrist Blood Culture - Preliminary No growth in 48 hours. 08/10/22 12:00 Stool Stool Occult Blood (ISAIAS) - Final Occult Blood Positive 08/07/22 15:30 Urine, Clean Catch Urine Culture - Final Pseudomonas fluorescens 08/07/22 15:33 Sputum, Tracheal Aspirate Gram Stain - Final 08/07/22 15:33 Sputum, Tracheal Aspirate Respiratory Culture - Final Mixed normal respiratory ny. No Streptococcus pneumoniae, beta-hemolytic Streptococcus or Staphylococcus aureus isolated. ABG Data ABG results: ABG 08/12/22 00:14 Specimen Type ART Sample Site L Radial pH 7.48 H Bicarbonate Actual 30.7 H Total CO2 32 Base Excess 7 H O2 Saturation 97 O2 % 80 ABG pCO2 41.1 ABG pO2 88 Scottie Test Positive Respiration Rate 12 O2 Delivery Device BiPAP Tidal Volume 400 POC PEEP 8 Radiography Diagnostic Testing: Radiology Impression Chest X-Ray 08/11/22 22:31 IMPRESSION: Interval removal of endotracheal tube and NG tube. Interval worsening of infiltrates in the left lung. New small right and moderate left pleural effusions. Electronically Signed: Gadiel Gaviria MD at 22:50 EST , Rhythm Strip Rhythm Strip: Sinus Tach Rate: 120 Physical Exam Narrative Const alert, no apparent distress and well nourished Constitutional Narrative: Middle-aged white female, remains extubated, on 6 L nasal cannula, speech therapy at bedside, appears comfortable at time, voice is stronger, still with some confusion and oriented only to self HEENT head/scalp atraumatic and moist oral mucous membranes HEENT Narrative: Mallampati 2-3, no thrush Head and Scalp: normocephalic Resp no retractions and no use of accessory muscles Resp Narrative: On nasal cannula at 6 L, scattered crackles, mild tachypnea Auscultation: crackles; Negative for rhonchi or wheezes Cardio regular rate, regular rhythm, S1 normal heart sound, S2 normal heart sound, no murmurs, no rub, no gallops, no clicks and no JVD GI normal to inspection, nondistended, normoactive bowel sounds, soft to palpation and non-tender Extremity no clubbing, cyanosis or edema Extremity Narrative: 2+ pedal pulses, 3+ pitting edema bilateral lower and upper extremities, no cyanosis or clubbing Neuro CN's II-XII intact bilaterally Neuro Narrative: Patient able to move all extremities symmetrically, marked diffuse weakness but no focal deficits, remains oriented only to self, speech is stronger Speech: Negative for speech normal Motor Exam: Negative for strength 5/5 throughout Psych Psych Narrative: Affect and mood seems to be better today Assessment & Plan Assessment/Plan (1) Acute hypotension: (2) Shock: (3) Metabolic acidosis: (4) Toxic metabolic encephalopathy: (5) Acute respiratory failure with hypoxia and hypercapnia: (6) Hypothermia: (7) Vitamin D deficiency: (8) Lactic acidosis: (9) Acute renal failure: (10) Bradycardia: (11) Acute respiratory failure with hypoxia: (12) Hypomagnesemia: (13) Anemia: (14) Thrombocytopenia: (15) Hypokalemia: PLAN: Plan Shock -Etiology is unclear as cultures are unremarkable overall -Resolved -Patient is off pressors Acute hypoxic respiratory failure -Initial ABG demonstrated pH of less than 6.5 with a PCO2 of 26.4 and a PO2 of 282 -Intubated on presentation 08/07/2022 -Extubated 08/11/2022 -Currently requiring 6 L nasal cannula -Wean as possible -Some decompensation overnight which required BiPAP likely related to marked volume overload -Hemodialysis with fluid removal/ultrafiltration as able per nephrology -Aggressive incentive spirometry -Pep therapy Anion gap metabolic acidosis -Suspect multifactorial from MARY and lactic acidosis -Resolved -Bicarb drip was discontinued -Nephrology suspects this may be related to metformin -Metformin level sent--> pending results -Nephrology following-appreciate input Lactic acidosis -Resolved -Likely cleared with dialysis -? Metformin toxicity -Level is pending -This is a send out and will take time MARY on CKD stage IIIb -Baseline serum creatinine appears to be between 1.5 and 1.7 -Serum creatinine at presentation was 5.6 -Serum creat 2.33 after dialysis yesterday -UF today for fluid removal goal of 2 to 2.5 L -Remains oliguric -Nephrology Following -Dialysis per nephrology Acute anemia -Hemoglobin with significant drop to 6.6 on the a.m. of 08/10/2022 and required 1 unit of blood--> repeat improved to 7.5--> hemoglobin down again on the a.m. of 08/11/2022 at 6.9--> 2 units packed red blood cells given--> hemoglobin now 12 -Repeat CBC in a.m. -9.3 admission -Guaiac was positive -Continue Protonix drip -Repeat CBC in a.m. -GI has evaluated the patient and will discuss possible EGD -Lower GI bleed highly unlikely with recent colonoscopy and no intervention -Patient with recent colonoscopy done at [facility] in [place] done by Dr. Drew Thrombocytopenia -Platelet count seems to be stabilizing and 46,000 today from 48,000 yesterday -Stopped subcu heparin on 08/10/2022 3 and avoid anticoagulation -HIT antibody is pending -Repeat CBC in a.m. Toxic/metabolic encephalopathy -CT of the brain shows no acute findings -Old vascular disease noted -Should continue to improve as metabolic issues normalize -Slowly resolving DM-2 -BGT's are now elevated -Continue sliding scale insulin for now -Continue Levemir 20 units at at bedtime -Fasting sugar is 167 this morning -Accu-Cheks as ordered Hypokalemia -Repeat potassium replacement again today -Repeat in a.m. Seizure disorder -Continue IV Keppra--> transition to oral once cleared for diet Chronic headaches -Lamictal and Topamax are for these -Restart these medications once cleared for diet Vitamin D deficiency -Restart vitamin D supplementation at discharge Hypertension -Off pressors -Patient now normotensive -Continue to hold amlodipine/HCTZ/ANUM inhibitor -Monitor for to the ability to restart -As needed hydralazine GERD -Protonix drip for now Pancreatic insufficiency -Hold Creon -Restart when p.o. intake has been reinitiated Depression/insomnia -Hold Effexor -Hold trazodone DVT prophylaxis -Continue heparin 5000 units 3 times daily CODE STATUS -Full code Charges/Coding Visit Charges Inpatient E&M: 44622 Subs Hosp L2
[2022-08-12 16:21] LABS: Bedside Glucose 62 mg/dL (74-106)
--- NOTE | 2022-08-12 16:50 | DIALYSIS ---
IUF tx completed x 3 hours. Pt tolerated IUF tx fair. Fluid removed 2200ml using crit-line monitor to B-profile and BV change of 14%. Vitals stable throughout keeping MAP greater than 65 throughout. Poor flows from CVC, unable to obtain BFR of more than 200-250. Verbal report to TRACY Blackburn post tx.
[2022-08-12] MEDS: Heparin 10,000 UNITS/10 ML Vial IV (16:55)
[2022-08-12] MEDS: 0.9% Saline Lock 10 ML Syringe IV (17:25)
--- NOTE | 2022-08-12 18:00 | CON.PCM.GI_ITS ---
HPI Consult Data Date of Consult: 08/12/22 HPI Narrative Reason for Consultation: Anemia HPI Narrative: TRUE AYALA, is a 56 F who presented to [facility] on 08/07/2022 secondary to decreased responsiveness.? Patient reportedly was last known well on the day prior to presentation.?? Patient has a history of type 2 diabetes m ellitus, hypertension and hypothyroidism.? Patient reportedly recently had an upper and lower endoscopy and was receiving prep.? No significant findings outside of a polyp were noted.? Patient al arroyo is extremely anxious at baseline per the .? Patient reportedly was found in the bed and not exposed to the elements. In the ER, patient was noted to have a temperature of 83.8 ?F, hypoxic and hypotensive at 70/37.? Patient did not have a loss of pulse, but was extremely bradycardic with a heart rate as low as 40 bpm and noted to have a third-degree heart block.? Laboratory work-up showed a white blood cell count of 18.7, hemoglobin of 9.3 and platelet count of 416.? INR was elevated at 1.8.? She went into renal failure and had to get CVVHD. She was also noted to drop her hemoglobin down to 6. PPI drip was started and she was given 3 units of packed red blood cells. Currently her hemoglobin has increased back up to 12 and she remains on PPI drip. I was consulted for GI blood loss anemia. REPLACED BY [facility] Medical History (Updated 08/10/22 @ 16:[address] Myriam Pierre, DO) Anxiety and depression Chronic anemia Chronic pancreatitis Depression Diabetes mellitus, type 2 GERD (gastroesophageal reflux disease) HTN (hypertension) Hyperlipidemia Hypothyroidism Insomnia Seizure disorder Vitamin D deficiency Home Medications atorvastatin 20 mg tablet 20 mg PO QHS CHOLESTEROL 07/04/18 [History Last Taken 08/05/22] insulin aspart U-100 100 unit/mL (3 mL) subcutaneous pen (Novolog FlexPen U-100 Insulin aspart) 30 units subcut BIDCM DM 07/04/18 [History Last Taken Unknown] metformin 1,000 mg tablet 1,000 mg PO BIDCM DM 07/04/18 [History Last Taken 08/06/22] venlafaxine 150 mg capsule,extended release 24 hr 150 mg PO DAILY . 07/04/18 [History Last Taken 08/06/22] amlodipine 10 mg tablet 10 mg PO DAILY . 08/07/22 [History Last Taken 08/06/22] cholecalciferol (vitamin D3) 25 mcg (1,000 unit) tablet 50 mcg PO DAILY SUPPLEMENT 08/07/22 [History Last Taken 08/05/22] cyanocobalamin (vitamin B-12) 1,000 mcg capsule 1,000 mcg PO DAILY SUPPLEMENT 08/07/22 [History Last Taken 08/06/22] empagliflozin 10 mg tablet (Jardiance) 10 mg PO DAILY . 08/07/22 [History Last Taken 08/06/22] hydrochlorothiazide 25 mg tablet 25 mg PO DAILY . 08/07/22 [History Last Taken 08/06/22] lamotrigine 25 mg tablet 25 mg PO DAILY . 08/07/22 [History Last Taken 08/06/22] levetiracetam 500 mg tablet 500 mg PO BID . 08/07/22 [History Last Taken 08/06/22] arjskz-atutkvfl-tffmctm 36,000-114,000-180,000 unit capsule,delay rel (Creon) 1 cap PO TIDCM . 08/07/22 [History Last Taken 08/06/22] lisinopril 40 mg tablet 40 mg PO DAILY HTN 08/07/22 [History Last Taken 08/06/22] omeprazole 20 mg capsule,delayed release 20 mg PO DAILY GERD 08/07/22 [History Last Taken 08/06/22] topiramate 50 mg tablet 50 mg PO DAILY . 08/07/22 [History Last Taken 08/05/22] trazodone 50 mg tablet 50 mg PO DAILY SLEEP 08/07/22 [History Last Taken 08/05/22] Allergy/AdvReac Type Severity Reaction Status Date / Time No Known Allergies Allergy Verified 06/25/20 15:08 Family History unable to obtain Surgical History unable to obtain Social History (Updated 08/07/22 @ 17:[address] Irma Isaacs MD) household members: spouse Smoking Status: Never smoker alcohol intake: never substance use type: does not use ROS ROS Narrative Unable to obtain ROS due to her current condition. Physical Exam Narrative Const alert, no apparent distress and well nourished HEENT head/scalp atraumatic and moist oral mucous membranes HEENT Narrative: Mallampati 2-3, no thrush Head and Scalp: normocephalic Resp no retractions and no use of accessory muscles Resp Narrative: On nasal cannula at 6 L, scattered crackles, mild tachypnea Auscultation: crackles; Negative for rhonchi or wheezes Cardio regular rate, regular rhythm, S1 normal heart sound, S2 normal heart sound, no murmurs, no rub, no gallops, no clicks and no JVD GI normal to inspection, nondistended, normoactive bowel sounds, soft to palpation and non-tender Extremity no clubbing, cyanosis or edema Extremity Narrative: 2+ pedal pulses, 3+ pitting edema bilateral lower and upper extremities, no cyanosis or clubbing Neuro CN's II-XII intact bilaterally Neuro Narrative: Patient able to move all extremities symmetrically, marked diffuse weakness but no focal deficits, remains oriented only to self, speech is stronger Speech: Negative for speech normal Motor Exam: Negative for strength 5/5 throughout Psych Psych Narrative: Affect and mood seems to be better today Lab / Micro Data Result Diagrams: 08/12/22 04:15 08/12/22 04:15 Labs: Laboratory Results - last 24 hr 08/11/22 13:20: Diff Path Review Reviewed 08/11/22 17:51: POC Glucose 267 H 08/12/22 00:22: POC Glucose 268 H 08/12/22 04:15: WBC 6.6, RBC 4.61, Hgb 12.9, Hct 37.3, MCV 80.9 L, MCH 28.0, MCHC 34.6, RDW Std Deviation 43.1, RDW Coeff of Jacqueline 14.7 H, Plt Count 46 L*, MPV 12.7 H, Immature Gran % (Auto) 1.800 H, Neut % (Auto) 59.0, Lymph % (Auto) 20.5, [place] % (Auto) 16.4 H, Eos % (Auto) 1.8, Baso % (Auto) 0.5, Absolute Neuts (auto) 3.9, Absolute Lymphs (auto) 1.35, Nucleated RBC % 0.8, Diff Path Review Reviewed, Platelet Estimate ADEQUATE 08/12/22 04:15: Sodium 136, Potassium 3.1 L, Chloride 92 L, Carbon Dioxide 32.0, Anion Gap 12, BUN 26 H, Creatinine 2.33 H, Estim Creat Clear Calc 19.86, Est GFR (MDRD) Af Amer 28 L, Est GFR (MDRD) Non-Af 23 L, BUN/Creatinine Ratio 11.2, Glucose 167 H, Calcium 6.5 L* 08/12/22 05:47: POC Glucose 158 H 08/12/22 11:00: POC Glucose 65 L 08/12/22 16:00: POC Glucose 62 L ABG Data ABG results: ABG 08/12/22 00:14 Specimen Type ART Sample Site L Radial pH 7.48 H Bicarbonate Actual 30.7 H Total CO2 32 Base Excess 7 H O2 Saturation 97 O2 % 80 ABG pCO2 41.1 ABG pO2 88 Scottie Test Positive Respiration Rate 12 O2 Delivery Device BiPAP Tidal Volume 400 POC PEEP 8 Rhythm Strip Rhythm Strip: Sinus Tach Rate: 120 Radiology Impression Chest X-Ray 08/11/22 22:31 IMPRESSION: Interval removal of endotracheal tube and NG tube. Interval worsening of infiltrates in the left lung. New small right and moderate left pleural effusions. Electronically Signed: Gadiel Gaviria MD at 22:50 EST , Assessment & Plan Assessment/Plan (1) Anemia: PLAN: Acute blood loss anemia with thrombocytopenia 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 Recommend upper endoscopy to evaluate upper GI tract for stress-induced gastritis stress-induced ulcerations. There were possibly biopsies done in upper GI tract but also could have caused bleeding. Recommend to stop PPI drip and only have her on famotidine 40 mg a day. There is a possibility that the Protonix could have caused thrombocytopenia. N.p.o. past midnight for EGD in the morning. Charges/Coding Visit Charges Inpatient E&M: 84556 Init Hosp L2
[2022-08-12 23:41] LABS: Bedside Glucose 126 mg/dL (74-106)
[2022-08-13] VITALS (19 sets, daily range): BP systolic 102–131; BP diastolic 53–87; PULSE 84–92; RESP 12–20; TEMP 36.4–37.1; O2SAT 92–99; BMI 34.7
[2022-08-13 03:48] LABS: Absolute Lymphocyte Count 1.41 X10^3/uL (0.83-4.51); Absolute Neutrophil Count 3.8 X10^3/uL (2.0-7.7); Basophil# 0.04 X10^3/uL; Basophil% 0.6 % (0-1); Eosinophil# 0.12 X10^3/uL; Eosinophils% 1.8 % (0-5); Hematocrit 36.1 % (37-47); Hemoglobin 12.7 g/dL (12.0-15.0); Lymphocyte # 1.41 X10^3/ul (0.83-4.51); Lymphocyte % 21.1 % (19-41); Mean Corp Hgb Conc 35.2 g/dL (32-36); Mean Corpuscular Hgb 29.1 pg (27.0-32.0); Mean Corpuscular Volume 82.6 fL (81-99); Mean Platelet Vol. 11.2 fl (6.2-12.0); Monocyte# 1.06 X10^3/uL; Monocyte% 15.9 % (0-10); NRBC Flagged by Analyzer 0.3 % (0-5); Neutrophil # 3.81 X10^3/uL (2.7-7.7); POSITIVE COUNT YES; RBC Distribution Width CV 15.5 % (11.6-14.6); RBC Distribution Width SD 46.9 fl (35.1-43.9); Red Blood Count 4.37 M/mm3 (4.2-5.4); White Blood Count 6.7 K/mm3 (4.4-11.0)
[2022-08-13 03:51] LABS: Differential Indicated SCAN CRITERIA MET; Platelet Count 46 K/mm3 (150-450)
[2022-08-13 04:04] LABS: Anion Gap 8 (5-15); BUN 31 mg/dL (7-18); BUN/Creat Ratio 11.2 RATIO (10-20); Calcium,Total 7.2 mg/dL (8.5-10.1); Chloride 95 mmol/L (98-107); Creatinine, Serum 2.78 mg/dL (0.55-1.02); EST Glomerular Filtration Rate 19 mL/min (>60); Est Glom Filt Rate - Afr Amer 22 mL/min (>60); Estimated Creatinine Clearance 16.64 ml/min; Glucose 121 mg/dL (74-106); Potassium 3.4 mmol/L (3.5-5.1); Sodium Level 136 mmol/L (136-145)
[2022-08-13 04:15] LABS: Differential Comment SCANNED; Platelet Estimate MKD DEC (ADEQ)
[2022-08-13] MEDS: Potassium Chloride 20mEq/100mL 20 MEQ/100 ML IV.SOLN. 100 MEQ IV BOLUS ×2 (08:13→09:20)
--- NOTE | 2022-08-13 09:01 | PCM.PN.REN ---
Subjective Subjective Follow up on MARY, fluid overload. Had UF yesterday, 2.3 liters has been removed. She is on room air today, complains on edema, but no shortness of breath. Pulse ox is 94% Objective Data Objective Data Vital Signs: Vital Signs Temp Pulse Resp BP Pulse Ox O2 Del Method O2 Flow Rate 98.7 F 84 18 131/68 H 98 Nasal Cannula 2 08/13/22 00:00 08/13/22 07:00 08/13/22 07:00 08/13/22 07:00 08/13/22 07:00 08/13/22 07:00 08/13/22 07:00 FiO2 45 08/13/22 02:00 Oxygen Flow Rate (L/min) 2 Oxygen Delivery Method Nasal Cannula Weight: 85.5 kg Body Mass Index (BMI) 34.7 Intake & Output: Intake and Output for Last 24 Hours 08/11/22 08/12/22 08/13/22 23:59 23:59 23:59 Intake Total 5764.91 / 5764.91 1527.5 / 1527.5 50 / 50 Output Total 60 / 60 2360 / 2360 30 / 30 Balance 5704.91 / 5704.91 -832.5 / -832.5 Lab / Micro Data Attestation: I reviewed the patient's lab results. Result Diagrams: 08/13/22 03:25 08/13/22 03:25 Labs: Laboratory Results - last 24 hr 08/07/22 15:30: Miscellaneous Test 08/11/22 13:20: Diff Path Review Reviewed 08/12/22 04:15: Diff Path Review Reviewed 08/12/22 11:00: POC Glucose 65 L 08/12/22 16:00: POC Glucose 62 L 08/12/22 23:19: POC Glucose 126 H 08/13/22 03:25: WBC 6.7, RBC 4.37, Hgb 12.7, Hct 36.1 L, MCV 82.6, MCH 29.1, MCHC 35.2, RDW Std Deviation 46.9 H, RDW Coeff of Jacqueline 15.5 H, Plt Count 46 L*, MPV 11.2, Immature Gran % (Auto) 3.600 H, Neut % (Auto) 57.0, Lymph % (Auto) 21.1, [place] % (Auto) 15.9 H, Eos % (Auto) 1.8, Baso % (Auto) 0.6, Absolute Neuts (auto) 3.8, Absolute Lymphs (auto) 1.41, Nucleated RBC % 0.3, Differential Comment SCANNED, Diff Path Review October foll, Platelet Estimate MKD 08/13/22 03:25: Sodium 136, Potassium 3.4 L, Chloride 95 L, Carbon Dioxide 33.0 H, Anion Gap 8, BUN 31 H, Creatinine 2.78 H, Estim Creat Clear Calc 16.64, Est GFR (MDRD) Af Amer 22 L, Est GFR (MDRD) Non-Af 19 L, BUN/Creatinine Ratio 11.2, Glucose 121 H, Calcium 7.2 L Micro: Microbiology 08/07/22 16:45 Blood Culture (Wb) - Right Wrist Blood Culture - Final No growth in 5 days. 08/07/22 16:50 Blood Culture (Wb) - Left Foot Blood Culture - Final No growth in 5 days. 08/11/22 01:10 Stool C. difficile DNA Amplification - Final 08/10/22 12:00 Stool Stool Occult Blood (ISAIAS) - Final Occult Blood Positive 08/07/22 15:30 Urine, Clean Catch Urine Culture - Final Pseudomonas fluorescens 08/07/22 15:33 Sputum, Tracheal Aspirate Gram Stain - Final 08/07/22 15:33 Sputum, Tracheal Aspirate Respiratory Culture - Final Mixed normal respiratory ny. No Streptococcus pneumoniae, beta-hemolytic Streptococcus or Staphylococcus aureus isolated. Radiography Diagnostic Testing: Radiology Impression Renal Ultrasound 08/08/22 08:23 IMPRESSION: Normal ultrasound of the kidneys. Electronically Signed: Sunil Quintanilla MD at 8:03 EST , Rhythm Strip Rhythm Strip: Sinus Tach Rate: 120 Physical Exam Const alert, oriented x3, no apparent distress and average body habitus Orientation / Consciousness: oriented to person and oriented to place HEENT normocephalic Head and Scalp: atraumatic Neck no lymphadenopathy Resp no use of accessory muscles and clear to auscultation bilaterally Cardio regular rate GI non-tender Auscultation: normoactive bowel sounds Skin no rashes or lesions noted Neuro Sensorium / Orientation: awake and alert Psych cooperative Assessment & Plan Assessment/Plan (1) MARY (acute kidney injury): PLAN: As she is so fluid overloaded and makes no urine, she will be HD dependent for a while, so line needs to be replaced with tunneled version, hopefully today the will dialyze her on -- schedule plus as needed
--- NOTE | 2022-08-13 10:22 | SP.MBSS_ITS ---
Modified Barium Swallow - Patient Information Study Date: 08/13/22 Study Time: 09:30 Direct Billable Minutes: 112 Total Minutes procedure & reportin Diagnosis: Acute respiratory failure with hypoxia (J96.01) Referring Physician: Myriam Pierre Reason for Referral: To objectively assess swallow function and risk for aspiration, as well as, to recommend least restrictive diet textures and compensatory strategies to decrease risk for aspiration. Medical History: Lucía Lowe is a 56 year-old female with a history of a colonoscopy 3 days prior to admission on 08/07/22, type 2 diabetes mellitus, hypertension and hypothyroidism. Patient reportedly recently had an upper and lower endoscopy and was receiving prep. No significant findings outside of a polyp were noted. Patient reportedly is extremely anxious at baseline per the . See [facility] for full report. Patient was found to be restless the morning of admission, and not responding appropriately according to the . Patient presented to [facility] on 08/07/22, due to decreased responsiveness. In the ER, patient was noted to have a temperature of 83.8 ?F, hypoxic and hypotensive at 70/37. Patient did not have a loss of pulse, but was extremely bradycardic with a heart rate as low as 40 bpm and noted to have a third-degree heart block. Patient was intubated without complication. Patient also had a right subclavian central line and an OG placed. Chest x-ray showed increased markings in the right upper lobe. Patient was extubated 08/11/2022 and referred to speech to assess swallow function and to consider pt for diet advancement. Pt was recommended NPO from BSE. Due to desaturation with trials of thin and puree this morning, the patient was recommended for MBSS to assess swallow function and LENS ASSISTANT concerns for silent aspiration. Current Diet Ordered: NPO Dentition: Natural Teeth Mental Status: Impaired - intermittent confusion Respiratory Status: Oxygenating on Room Air - Penetration-Aspiration Scale Penetration-Aspiration Scale: OBJECTIVE ASSESSMENT OF SWALLOW FUNCTION (QUANTITATIVE ? PER TRIAL): PENETRATION / ASPIRATION SCALE (BECK): 1 = does not enter airway 2 = enters airway/above vocal folds/ejected 3 = enters airway/above vocal folds/not ejected 4 = enters airway/contacts vocal folds/ejected 5 = enters airway/contacts vocal folds/not ejected 6 = enters airway/below vocal folds/ejected 7 = enters airway/below vocal folds/not ejected despite effort 8 = enters airway/below vocal folds/no effort VIDEOFLOROSCOPIC SCALE SCORE (BECK): Grade I = aspiration of material that has penetrated into the laryngeal vestibule, intact cough reflex Grade II = aspiration < 10 % of the bolus, intact cough reflex Grade III = aspiration of < 10 % of the bolus, reduced cough reflex or aspiration of > 10 % of the bolus, intact cough reflex Grade IV = aspiration of > 10 % of the bolus, reduced cough reflex - Penetration-Aspiration Scale Score Thin Liquid via teaspoon Result: 5= enters airways/contacts vocal folds/not ejected Thin Liquid via teaspoon Effortful double swallow Result: 5= enters airways/contacts vocal folds/not ejected Comment: SILENT POST PRANDIAL ASPIRATION OF PREVIOUS TRIAL Thin Liquid via small single sip from cup Result: 8= enters airway/below vocal folds/no effort [place] Thick Liquid via teaspoon Effortful double swallow Result: 3= enters airways/above vocal folds/not ejected Honey Thick Liquid via teaspoon Result: 2= enter airway/above vocal folds/ejected Pudding via teaspoon with esophageal screen Result: 1= does not enter airway Honey Thick Liquid via teaspoon Double swallow Result: 2= enter airway/above vocal folds/ejected Comment: Patient observed to desaturate to 78% with a timely recovery. Patient asked LENS ASSISTANT, Can I cough?, which LENS ASSISTANT encouraged. Pt appeared to somewhat clear residues of previously aspirated trials from trachea. Honey Thick Liquid via small single sip from cup Result: 1= does not enter airway - Oral Phase Labial Seal: No Labial Escape Tongue Control During Bolus Hold: Posterior escape of greater than half of bolus Bolus Transport/Lingual Motion: Slowed tongue motion Oral Residue: Residue collection on oral structures - Pharyngeal Phase Initiation of Pharyngeal Swallow: Bolus head in pyriforms Laryngeal Elevation: Partial superior movement thyroid cart/partial apprx aryt- epig petiole Anterior Hyoid Excursion: Partial anterior movement Epiglottic Movement: Partial inversion Laryngeal Vestibule Closure at Height of Swallow: Incomplete; narrow column of air/contrast in laryngeal vestibule Pharyngeal Stripping Wave: Present - diminished Pharyngoesophageal Segment Opening: Parital distension and partial duration; parital obstruction of flow Tongue Base Retraction: Wide column of contrast between tongue base & post. pharyngeal wall Pharyngeal Residue: Majority of contrast within or on pharyngeal structures - pudding - Esophageal Phase Esophageal Clearance: Complete clearance - Treatment Strategies Effects of treatment strategies attemped:: Effortful swallow = not effective. Double swallow = somewhat effective. - Diagnosis/Impression Diagnosis: Severe oropharyngeal phase dysphagia (R13.12) Impression: The oral phase is primarily marked by... -Decreased bolus control with >1/2 of the thin by cup bolus spilling posteriorly to the pyriforms and vocal folds prior to swallow onset resulting in aspiration during the swallow. -Slowed tongue motion for A-P transport. -Mild oral residue after the swallow with thicker viscosities (honey/moderately thick and pudding). -Did not complete cookie trial due to concerns for choking with decreased lingual control and poor pharyngeal clearance. The pharyngeal phase is primarily marked by... -Severely decreased airway closure during the swallow due to minimal anterior hyoid excursion, partial epiglottic inversion, and decreased laryngeal elevation. -Severely decreased tongue base retraction, moderately decreased UES opening/duration, and moderately decreased pharyngeal stripping wave with resulting moderate-severe pharyngeal residues of thicker viscosities (honey/moderately thick and pudding) after the swallow. Double swallow greatly decreased pharyngeal residues. -Post prandial SILENT aspiration of thin liquids by tsp. SILENT aspiration of thin by cup. Laryngeal penetration of nectar/mildly thick liquids above the vocal folds, which did not reliably eject from the laryngeal vestibule after the swallow - placing patient at increased risk for post prandial aspiration. Honey/moderately thick liquids did result in laryngeal penetration above the vocal folds; however, these trials appeared to fully eject after the swallow was completed. - Recommendations Diet: NPO Comment: Due to oxygen desaturation to 78% during the study, will recommend skilled meal analysis of moist purees, honey thickened liquids with LENS ASSISTANT prior to diet advancement. If pt is recommended to advance to an oral diet, will recommend the following aspiration precautions and supervision needs: small bites and sips, slow rate, DOUBLE SWALLOWS ON EACH BITE and SIP, sitting upright 90 degrees during oral intake, INTERMITTENT COUGH AND RE-SWALLOW, Direct Supervision at meals to ensure pt is maintaining oxygen saturation. Recommend Repeat Modified Barium Swallow: Yes - 1-2 weeks to reassess swallow function and consider patient for diet advancement Need for Skilled Speech Therapy Services: Yes Comment: Will recommend the patient for intensive dysphagia therapy to address severe deficits in oropharyngeal swallow function. Will recommend the patient for oropharyngeal strengthening to improve tongue base retraction, laryngeal elevation, hyoid excursion, and pharyngeal contraction (CTAR, effortful swallow, Helder, and Jackie). WOULD NOT recommend diet advancement past puree textures / honey thickened liquids at bedside due to SILENT nature of aspiration observed during the study and desaturation to 78% occurring during MBSS as a result of silent aspiration. Education Completed: 1. Described result of evaluation., 2. Pt understands evaluation & agrees with goals and treatment plan., 7. Pt requires further education on strategies & risks. - Status Active ST Patient: Active - Contact Information [facility] Speech Therapy:: Eleni Connell M.A. [facility]-LENS ASSISTANT Speech-Language Pathologist [facility] [address] [place] [address] [email or web address] [phone] 08/13/22 11:44
[2022-08-13] MEDS: levETIRAcetam IV 1,000 MG/100 ML BAG 400 MG IV ×2 (10:27→22:16)
--- NOTE | 2022-08-13 12:02 | PCM.PN.INT ---
Assessment & Plan Assessment/Plan (1) Shock: (2) Hypoxia: (3) Hypothermia: PLAN: Plan RECOMMENDATIONS: 1. Continue empiric antimicrobials to complete a 7-day treatment course. 2. Continue to wean supplemental oxygen to maintain saturations at or above 90%. 3. Dietary advancement per speech therapy. MBSS planned for tomorrow. 4. Continue hemodialysis with volume optimization per nephrology recommendations. 5. Continue PPI therapy. 6. Monitor blood counts daily and transfuse if hemoglobin drops below 7 g/dL. 7. Encourage incentive spirometer use and mobilize patient as tolerated. 8. The patient is medically stable for transfer out of the intensive care unit. IMPRESSIONS: 1. Septic shock Resolved. Clinical concern for an underlying pulmonary source of infection. Continue empiric broad-spectrum antimicrobials. Culture data has been largely unrevealing to date. The patient has been weaned from vasopressor support at the current time and remains hemodynamically stable. 2. Acute hypoxemic respiratory failure Improved. The patient was able to be successfully extubated on August 11, but remains significantly volume overloaded for the hospitalization. Recommend volume optimization through hemodialysis, per nephrology recommendations. Continue antibiotics to complete 7-day treatment course. Dietary advancement per speech therapy recommendations. 3. MARY on CKD Likely secondary to progression to ischemic ATN in the setting of #1. Continue hemodialysis support per nephrology recommendations. 4. Anemia and thrombocytopenia Unclear etiology. However, heparin-induced thrombocytopenia is a possibility for the patient's dropping platelet count. PF4 antibody is pending. Heparin has been discontinued. Continue transfusion of blood products to maintain hemoglobin at or above 7 g/dL. Continue PPI therapy twice daily as ordered. 5. Diabetes mellitus type 2/seizure disorder/hypertension Complicates care, management, recovery and prognosis. Continue sliding scale insulin coverage. Continue to hold home antihypertensives. This note was generated with [employer] dictation software. It may contain incorrect words, spelling, and punctuation that were not noted in checking the note before signing. Subjective Subjective The patient was seen and examined at the bedside this morning. Events from the last 24 hours have been reviewed. The patient is currently afebrile, hemodynamically stable and maintaining appropriate oxygen saturations on room air. No overnight issues were identified by the nursing staff. The patient is still overall net +27 L for the hospitalization. Platelet count remains low at 46,000. Objective Data Objective Data The patient's most recent lab work, culture data and imaging studies have all been personally reviewed. Infectious work-up has been unrevealing to date. Stool for occult blood was positive. C. difficile was negative. Vital Signs: Vital Signs Temp Pulse Resp BP Pulse Ox O2 Del Method O2 Flow Rate 97.9 F 85 15 113/67 95 Room Air 2 08/13/22 11:00 08/13/22 11:00 08/13/22 11:00 08/13/22 11:00 08/13/22 11:00 08/13/22 11:00 08/13/22 07:00 FiO2 45 08/13/22 02:00 Oxygen Flow Rate (L/min) 2 Oxygen Delivery Method Room Air Weight: 188 lb 7.924 oz Body Mass Index (BMI) 34.7 Intake & Output: Intake and Output for Last 24 Hours 08/11/22 08/12/22 08/13/22 23:59 23:59 23:59 Intake Total 5764.91 / 5764.91 1527.5 / 1527.5 460 / 460 Output Total 60 / 60 2360 / 2360 80 / 80 Balance 5704.91 / 5704.91 -832.5 / -832.5 380 / 380 Lab / Micro Data Attestation: I reviewed the patient's lab results. Result Diagrams: 08/13/22 03:25 08/13/22 03:25 Labs: Laboratory Results - last 24 hr 08/07/22 15:30: Miscellaneous Test 08/11/22 13:20: Diff Path Review Reviewed 08/12/22 04:15: Diff Path Review Reviewed 08/12/22 16:00: POC Glucose 62 L 08/12/22 23:19: POC Glucose 126 H 08/13/22 03:25: WBC 6.7, RBC 4.37, Hgb 12.7, Hct 36.1 L, MCV 82.6, MCH 29.1, MCHC 35.2, RDW Std Deviation 46.9 H, RDW Coeff of Jacqueline 15.5 H, Plt Count 46 L*, MPV 11.2, Immature Gran % (Auto) 3.600 H, Neut % (Auto) 57.0, Lymph % (Auto) 21.1, [place] % (Auto) 15.9 H, Eos % (Auto) 1.8, Baso % (Auto) 0.6, Absolute Neuts (auto) 3.8, Absolute Lymphs (auto) 1.41, Nucleated RBC % 0.3, Differential Comment SCANNED, Diff Path Review October, Platelet Estimate MKD 08/13/22 03:25: Sodium 136, Potassium 3.4 L, Chloride 95 L, Carbon Dioxide 33.0 H, Anion Gap 8, BUN 31 H, Creatinine 2.78 H, Estim Creat Clear Calc 16.64, Est GFR (MDRD) Af Amer 22 L, Est GFR (MDRD) Non-Af 19 L, BUN/Creatinine Ratio 11.2, Glucose 121 H, Calcium 7.2 L Micro: Microbiology 08/07/22 16:45 Blood Culture (Wb) - Right Wrist Blood Culture - Final No growth in 5 days. 08/07/22 16:50 Blood Culture (Wb) - Left Foot Blood Culture - Final No growth in 5 days. 08/11/22 01:10 Stool C. difficile DNA Amplification - Final 08/10/22 12:00 Stool Stool Occult Blood (ISAIAS) - Final Occult Blood Positive 08/07/22 15:30 Urine, Clean Catch Urine Culture - Final Pseudomonas fluorescens 08/07/22 15:33 Sputum, Tracheal Aspirate Gram Stain - Final 08/07/22 15:33 Sputum, Tracheal Aspirate Respiratory Culture - Final Mixed normal respiratory ny. No Streptococcus pneumoniae, beta-hemolytic Streptococcus or Staphylococcus aureus isolated. ABG Data ABG results: ABG 08/12/22 00:14 Specimen Type ART Sample Site L Radial pH 7.48 H Bicarbonate Actual 30.7 H Total CO2 32 Base Excess 7 H O2 Saturation 97 O2 % 80 ABG pCO2 41.1 ABG pO2 88 Scottie Test Positive Respiration Rate 12 O2 Delivery Device BiPAP Tidal Volume 400 POC PEEP 8 Radiography Diagnostic Testing: Radiology Impression Renal Ultrasound 08/08/22 08:23 IMPRESSION: Normal ultrasound of the kidneys. Electronically Signed: Sunil Quintanilla MD at 8:03 EST , Rhythm Strip Rhythm Strip: Sinus Tach Rate: 120 Physical Exam Const alert and no apparent distress General Appearance: cooperative Nutritional Appearance: obese HEENT normocephalic and head/scalp atraumatic Eyes PERRL, EOMs intact bilaterally and conjunctivae normal Neck supple General: trachea midline and CVC in place Chest inspection of chest normal Resp Auscultation: diminished lung sounds; Negative for rales, rhonchi or wheezes Cardio regular rate and regular rhythm GI normal to inspection, nondistended, normoactive bowel sounds Extremity General Extremity: edema Skin no rashes or lesions noted Neuro CN's II-XII intact bilaterally and no focal motor deficits Psych Mood & Affect: flat affect Charges/Coding Visit Charges Inpatient E&M: 07296 Subs Hosp L2
[2022-08-13 12:20] LABS: Pathologist Review Reviewed
--- NOTE | 2022-08-13 12:42 | PCM.PN.HOSP ---
Reason for Visit Reason for Visit: No issues overnight. Patient has refused EGD at this time. I did discuss with her that we really do not know why she bled so much and it would be beneficial to know she indicated she would think about it. Currently working with speech therapy and per discussion with them the plan is for modified barium swallow later today. Sats did drop into the mid 80s every time she would take a sip of water with a cup so I do suspect she is intermittently silently aspirating. She is not coughing. Subjective Subjective Overnight. Patient is on room air. Speech therapy is at the bedside and patient did have some hypoxic events while trying to drink water out of a cup with critical resolution back to normal saturations. Sats did drop into the mid 80s. Modified barium swallow has been recommended. Patient is refusing EGD at this time. I did discuss why we wanted to perform this and she stated she would think about it. Objective Data Objective Data Vital Signs: Vital Signs Temp Pulse Resp BP Pulse Ox O2 Del Method O2 Flow Rate 97.9 F 85 15 113/67 95 Room Air 2 08/13/22 11:00 08/13/22 11:00 08/13/22 11:00 08/13/22 11:00 08/13/22 11:00 08/13/22 11:00 08/13/22 07:00 FiO2 45 08/13/22 02:00 Oxygen Flow Rate (L/min) 2 Oxygen Delivery Method Room Air Weight: 85.5 kg Body Mass Index (BMI) 34.7 Intake & Output: Intake and Output for Last 24 Hours 08/11/22 08/12/22 08/13/22 23:59 23:59 23:59 Intake Total 5764.91 / 5764.91 1527.5 / 1527.5 460 / 460 Output Total 60 / 60 2360 / 2360 80 / 80 Balance 5704.91 / 5704.91 -832.5 / -832.5 380 / 380 Lab / Micro Data Result Diagrams: 08/13/22 03:25 08/13/22 03:25 Labs: Laboratory Results - last 24 hr 08/07/22 15:30: Miscellaneous Test 08/11/22 13:20: Diff Path Review Reviewed 08/12/22 04:15: Diff Path Review Reviewed 08/12/22 16:00: POC Glucose 62 L 08/12/22 23:19: POC Glucose 126 H 08/13/22 03:25: WBC 6.7, RBC 4.37, Hgb 12.7, Hct 36.1 L, MCV 82.6, MCH 29.1, MCHC 35.2, RDW Std Deviation 46.9 H, RDW Coeff of Jacqueline 15.5 H, Plt Count 46 L*, MPV 11.2, Immature Gran % (Auto) 3.600 H, Neut % (Auto) 57.0, Lymph % (Auto) 21.1, [place] % (Auto) 15.9 H, Eos % (Auto) 1.8, Baso % (Auto) 0.6, Absolute Neuts (auto) 3.8, Absolute Lymphs (auto) 1.41, Nucleated RBC % 0.3, Differential Comment SCANNED, Diff Path Review Reviewed, Platelet Estimate MKD 08/13/22 03:25: Sodium 136, Potassium 3.4 L, Chloride 95 L, Carbon Dioxide 33.0 H, Anion Gap 8, BUN 31 H, Creatinine 2.78 H, Estim Creat Clear Calc 16.64, Est GFR (MDRD) Af Amer 22 L, Est GFR (MDRD) Non-Af 19 L, BUN/Creatinine Ratio 11.2, Glucose 121 H, Calcium 7.2 L Micro: Microbiology 08/07/22 16:45 Blood Culture (Wb) - Right Wrist Blood Culture - Final No growth in 5 days. 08/07/22 16:50 Blood Culture (Wb) - Left Foot Blood Culture - Final No growth in 5 days. 08/11/22 01:10 Stool C. difficile DNA Amplification - Final 08/10/22 12:00 Stool Stool Occult Blood (ISAIAS) - Final Occult Blood Positive 08/07/22 15:30 Urine, Clean Catch Urine Culture - Final Pseudomonas fluorescens 08/07/22 15:33 Sputum, Tracheal Aspirate Gram Stain - Final 08/07/22 15:33 Sputum, Tracheal Aspirate Respiratory Culture - Final Mixed normal respiratory ny. No Streptococcus pneumoniae, beta-hemolytic Streptococcus or Staphylococcus aureus isolated. Radiography Diagnostic Testing: Radiology Impression Renal Ultrasound 08/08/22 08:23 IMPRESSION: Normal ultrasound of the kidneys. Electronically Signed: Sunil Quintanilla MD at 8:03 EST , Rhythm Strip Rhythm Strip: Sinus Tach Rate: 120 Physical Exam Narrative Const alert, no apparent distress and well nourished Constitutional Narrative: Middle-aged white female, on room air, speech therapy at bedside, appears comfortable at time, voice is getting stronger daily, orientation is improving and patient was oriented to self and place and month today HEENT head/scalp atraumatic and moist oral mucous membranes HEENT Narrative: Mallampati 2, no thrush Head and Scalp: normocephalic Resp normal respiratory effort, no retractions, no use of accessory muscles and clear to auscultation bilaterally Auscultation: Negative for crackles, rhonchi or wheezes Cardio regular rate, regular rhythm, S1 normal heart sound, S2 normal heart sound, no murmurs, no rub, no gallops, no clicks and no JVD GI normal to inspection, nondistended, normoactive bowel sounds, soft to palpation and non-tender Extremity no clubbing, cyanosis or edema Extremity Narrative: 2+ pedal pulses, 3+ pitting edema bilateral lower and upper extremities, no cyanosis or clubbing Neuro moves all extremities and no focal motor deficits Neuro Narrative: Significant generalized weakness, vocal quality has improved again today from yesterday Speech: Negative for speech normal Motor Exam: Negative for strength 5/5 throughout Assessment & Plan Assessment/Plan (1) Acute hypotension: (2) Shock: (3) Metabolic acidosis: (4) Toxic metabolic encephalopathy: (5) Acute respiratory failure with hypoxia and hypercapnia: (6) Hypothermia: (7) Vitamin D deficiency: (8) Lactic acidosis: (9) Acute renal failure: (10) Bradycardia: (11) Acute respiratory failure with hypoxia: (12) Hypomagnesemia: (13) Anemia: (14) Thrombocytopenia: (15) Hypokalemia: PLAN: Plan Shock -Etiology is unclear as cultures are unremarkable overall -Resolved -Metformin level, methanol level, cyanide level, and ethylene glycol level are all still pending Acute hypoxic respiratory failure -Initial ABG demonstrated pH of less than 6.5 with a PCO2 of 26.4 and a PO2 of 282 -Intubated on presentation 08/07/2022 -Extubated 08/11/2022 -Has been weaned to room air thus acute hypoxic respiratory failure is resolved -Continue aggressive incentive spirometry -Pep therapy MARY on CKD stage IIIb -Baseline serum creatinine appears to be between 1.5 and 1.7 -Serum creatinine at presentation was 5.6 -Serum creat 2.33 after dialysis yesterday -UF today for fluid removal goal of 2 to 2.5 L -Remains oliguric -Nephrology following -Dialysis per nephrology -General surgery consultation in place for tunneled dialysis catheter placement--> likely will be done on Wednesday Dysphagia -Speech is following -Recommended modified barium swallow did poorly speech therapy does not anticipate fast improvement -Currently recommending alternative treatment routes via Dobbhoff or PEG placement -We will discuss with patient today Acute anemia -Hemoglobin with significant drop to 6.6 on the a.m. of 08/10/2022 and required 1 unit of blood--> repeat improved to 7.5--> hemoglobin down again on the a.m. of 08/11/2022 at 6.9--> 2 units packed red blood cells given--> hemoglobin now 12 and has been stable for 48 hours -Repeat CBC in a.m. -9.3 admission -Guaiac was positive -Continue IV Protonix and drip was discontinued yesterday -Repeat CBC in a.m. -GI recommended EGD however this is pending pt approval -Lower GI bleed highly unlikely with recent colonoscopy and no intervention -Patient with recent colonoscopy done at [facility] in [place] done by Dr. Drew Thrombocytopenia -Platelet count seems to be stabilize at 46,000 today -Today is the first day her platelet count has not trended down -Stopped subcu heparin on 08/10/2022 3 and avoid anticoagulation -HIT antibody is pending -Repeat CBC in a.m. Toxic/metabolic encephalopathy -CT of the brain shows no acute findings -Old vascular disease noted -Should continue to improve as metabolic issues normalize -much improved since admission DM-2 -BGT's are now elevated -Continue sliding scale insulin for now -Levemir discontinued as the patient is no longer on bicarb drip and D5W -Fasting sugar is 121 this morning -Accu-Cheks as ordered Hypokalemia -Repeat potassium replacement again today -Repeat in a.m. Seizure disorder -Continue IV Keppra--> transition to oral once cleared for diet Chronic headaches -Lamictal and Topamax are for these -Restart these medications once cleared for diet Vitamin D deficiency -Restart vitamin D supplementation at discharge Hypertension -Off pressors -Patient now normotensive -Continue to hold amlodipine/HCTZ/ANUM inhibitor -Monitor for to the ability to restart -As needed hydralazine GERD -Protonix drip for now Pancreatic insufficiency -Hold Creon -Restart when p.o. intake has been reinitiated Depression/insomnia -Hold Effexor -Hold trazodone DVT prophylaxis -SCDs -Heparin discontinued secondary to thrombocytopenia -HIT antibody pending CODE STATUS -Full code Charges/Coding Visit Charges Inpatient E&M: 75797 Subs Hosp L2
--- NOTE | 2022-08-13 12:48 | CON.PCM.SX_ITS ---
Assessment & Plan Assessment/Plan (1) MARY (acute kidney injury): PLAN: Plan As scheduled on Wednesday at 7:30 AM for a right possible left tunneled dialysis catheter. Discussed procedure including risk but not limited to bleeding, infection, malfunction of catheter and anesthesia. Patient no further question this time. See if were able to remove the temporary dialysis catheter and right subclavian prior to that time or that may dictate which side issues for the tunneled. Leslie Simons M.D. Pager: [phone] [facility] [address] [place] [address], Outpatient Telephone, [address] [place] [address] Office: [phone] HPI Consult Data Date of Consult: 08/14/22 HPI Narrative HPI Narrative: TRUE AYALA, is a 56 F who was initially admitted with respiratory failure/shock to the ICU. Patient did have temporary dialysis catheter as well as right subclavian triple-lumen placed. Request for a tunneled dialysis catheter. Argelia ent had a colonoscopy on 08/05/2022 and had a 3-day prep was found unresponsive by prior to being admitted. Currently patient is undergoing swallow studies with speech. Left temporary IJ dialysis catheter in place. [facility] Medical History (Updated 08/10/22 @ 16:[address] Myriam Pierre, ) Anxiety and depression Chronic anemia Chronic pancreatitis Depression Diabetes mellitus, type 2 GERD (gastroesophageal reflux disease) HTN (hypertension) Hyperlipidemia Hypothyroidism Insomnia Seizure disorder Vitamin D deficiency Home Medications atorvastatin 20 mg tablet 20 mg PO QHS CHOLESTEROL 07/04/18 [History Last Taken 08/05/22] insulin aspart U-100 100 unit/mL (3 mL) subcutaneous pen (Novolog FlexPen U-100 Insulin aspart) 30 units subcut BIDCM DM 07/04/18 [History Last Taken Unknown] metformin 1,000 mg tablet 1,000 mg PO BIDCM DM 07/04/18 [History Last Taken 08/06/22] venlafaxine 150 mg capsule,extended release 24 hr 150 mg PO DAILY . 07/04/18 [History Last Taken 08/06/22] amlodipine 10 mg tablet 10 mg PO DAILY . 08/07/22 [History Last Taken 08/06/22] cholecalciferol (vitamin D3) 25 mcg (1,000 unit) tablet 50 mcg PO DAILY SUPPLEMENT 08/07/22 [History Last Taken 08/05/22] cyanocobalamin (vitamin B-12) 1,000 mcg capsule 1,000 mcg PO DAILY SUPPLEMENT 08/07/22 [History Last Taken 08/06/22] empagliflozin 10 mg tablet (Jardiance) 10 mg PO DAILY . 08/07/22 [History Last Taken 08/06/22] hydrochlorothiazide 25 mg tablet 25 mg PO DAILY . 08/07/22 [History Last Taken 08/06/22] lamotrigine 25 mg tablet 25 mg PO DAILY . 08/07/22 [History Last Taken 08/06/22] levetiracetam 500 mg tablet 500 mg PO BID . 08/07/22 [History Last Taken 08/06/22] zmwvvr-istdwbhx-isqkrjy 36,000-114,000-180,000 unit capsule,delay rel (Creon) 1 cap PO TIDCM . 08/07/22 [History Last Taken 08/06/22] lisinopril 40 mg tablet 40 mg PO DAILY HTN 08/07/22 [History Last Taken 08/06/22] omeprazole 20 mg capsule,delayed release 20 mg PO DAILY GERD 08/07/22 [History Last Taken 08/06/22] topiramate 50 mg tablet 50 mg PO DAILY . 08/07/22 [History Last Taken 08/05/22] trazodone 50 mg tablet 50 mg PO DAILY SLEEP 08/07/22 [History Last Taken 08/05/22] Allergy/AdvReac Type Severity Reaction Status Date / Time No Known Allergies Allergy Verified 06/25/20 15:08 Family History unable to obtain Surgical History unable to obtain Social History (Updated 08/07/22 @ 17:[address] Irma Isaacs MD) household members: spouse Smoking Status: Never smoker alcohol intake: never substance use type: does not use ROS Constitutional Constitutional: Denies fever(s) Eyes Eyes: Denies loss of vision ENT HEENT: Denies hearing loss Cardiovascular Cardiovascular: Denies palpitations Respiratory/Chest Respiratory/Chest: Denies cough Gastrointestinal Gastrointestinal: Denies abdominal pain, nausea or vomiting Genitourinary Genitourinary: Denies dysuria Musculoskeletal Musculoskeletal: Denies joint pain Integumentary Integumentary: Denies rash Neurologic Neurologic: Denies focal weakness Psychiatric Psychiatric: Denies depression Hematologic/Lymphatic Hematologic/Lymphatic: Denies easy bleeding Physical Exam Const alert, oriented x3 and no apparent distress HEENT normocephalic Neck Neck Narrative: Left IJ temporary dialysis catheter in place Chest Chest Narrative: Right subclavian triple-lumen catheter in place Resp normal respiratory effort GI soft to palpation, non-tender and non-distended Extremity normal to inspection Skin no rashes or lesions noted Neuro CN's II-XII intact bilaterally Lab / Micro Data Result Diagrams: 08/14/22 06:50 08/14/22 06:50 Labs: Laboratory Results - last 24 hr 08/07/22 15:30: Miscellaneous Test 08/11/22 13:20: Diff Path Review Reviewed 08/12/22 04:15: Diff Path Review Reviewed 08/12/22 16:00: POC Glucose 62 L 08/12/22 23:19: POC Glucose 126 H 08/13/22 03:25: WBC 6.7, RBC 4.37, Hgb 12.7, Hct 36.1 L, MCV 82.6, MCH 29.1, MCHC 35.2, RDW Std Deviation 46.9 H, RDW Coeff of Jacqueline 15.5 H, Plt Count 46 L*, MPV 11.2, Immature Gran % (Auto) 3.600 H, Neut % (Auto) 57.0, Lymph % (Auto) 21.1, [place] % (Auto) 15.9 H, Eos % (Auto) 1.8, Baso % (Auto) 0.6, Absolute Neuts (auto) 3.8, Absolute Lymphs (auto) 1.41, Nucleated RBC % 0.3, Differential Comment SCANNED, Diff Path Review Reviewed, Platelet Estimate MKD 08/13/22 03:25: Sodium 136, Potassium 3.4 L, Chloride 95 L, Carbon Dioxide 33.0 H, Anion Gap 8, BUN 31 H, Creatinine 2.78 H, Estim Creat Clear Calc 16.64, Est GFR (MDRD) Af Amer 22 L, Est GFR (MDRD) Non-Af 19 L, BUN/Creatinine Ratio 11.2, Glucose 121 H, Calcium 7.2 L Micro: Microbiology 08/07/22 16:45 Blood Culture (Wb) - Right Wrist Blood Culture - Final No growth in 5 days. 08/07/22 16:50 Blood Culture (Wb) - Left Foot Blood Culture - Final No growth in 5 days. Rhythm Strip Rhythm Strip: Sinus Tach Rate: 120 Radiology Impression Renal Ultrasound 08/08/22 08:23 IMPRESSION: Normal ultrasound of the kidneys. Electronically Signed: Sunil Quintanilla MD at 8:03 EST , Charges/Coding Visit Charges Inpatient E&M: 44106 Init Hosp L3
[2022-08-13 13:25] LABS: Bedside Glucose 144 mg/dL (74-106)
[2022-08-13] MEDS: Menthol/Lanolin/Calamine/Znox 113 GM Tube 1 APPLIC TOPICAL ×2 (14:04→22:37)
[2022-08-13 17:51] LABS: Bedside Glucose 150 mg/dL (74-106)
--- NOTE | 2022-08-13 17:57 | PN_ITS ---
Subjective Subjective Patient was post to have upper endoscopy today to evaluate her acute onset anemia. She did agree to have the upper endoscopy however she underwent a swallowing eval today. She did not do well on a swallowing eval. Objective Data Objective Data Vital Signs: Vital Signs Temp Pulse Resp BP Pulse Ox O2 Del Method O2 Flow Rate 98.5 F 90 12 118/72 97 Room Air 2 08/13/22 17:22 08/13/22 17:22 08/13/22 17:22 08/13/22 17:22 08/13/22 17:22 08/13/22 17:22 08/13/22 07:00 FiO2 45 08/13/22 02:00 Oxygen Flow Rate (L/min) 2 Oxygen Delivery Method Room Air Weight: 188 lb 7.924 oz Body Mass Index (BMI) 34.7 Intake & Output: Intake and Output for Last 24 Hours 08/11/22 08/12/22 08/13/22 23:59 23:59 23:59 Intake Total 5764.91 / 5764.91 1527.5 / 1527.5 510 / 510 Output Total 60 / 60 2360 / 2360 80 / 80 Balance 5704.91 / 5704.91 -832.5 / -832.5 430 / 430 Lab / Micro Data Result Diagrams: 08/13/22 03:25 08/13/22 03:25 Labs: Laboratory Results - last 24 hr 08/07/22 15:30: Miscellaneous Test 08/11/22 07:25: Crossmatch See Detail 08/12/22 23:19: POC Glucose 126 H 08/13/22 03:25: WBC 6.7, RBC 4.37, Hgb 12.7, Hct 36.1 L, MCV 82.6, MCH 29.1, MCHC 35.2, RDW Std Deviation 46.9 H, RDW Coeff of Jacqueline 15.5 H, Plt Count 46 L*, MPV 11.2, Immature Gran % (Auto) 3.600 H, Neut % (Auto) 57.0, Lymph % (Auto) 21.1, [place] % (Auto) 15.9 H, Eos % (Auto) 1.8, Baso % (Auto) 0.6, Absolute Neuts (auto) 3.8, Absolute Lymphs (auto) 1.41, Nucleated RBC % 0.3, Differential Comment SCANNED, Diff Path Review Reviewed, Platelet Estimate MKD 08/13/22 03:25: Sodium 136, Potassium 3.4 L, Chloride 95 L, Carbon Dioxide 33.0 H, Anion Gap 8, BUN 31 H, Creatinine 2.78 H, Estim Creat Clear Calc 16.64, Est GFR (MDRD) Af Amer 22 L, Est GFR (MDRD) Non-Af 19 L, BUN/Creatinine Ratio 11.2, Glucose 121 H, Calcium 7.2 L 08/13/22 13:03: POC Glucose 144 H 08/13/22 17:20: POC Glucose 150 H Micro: Microbiology 08/07/22 16:45 Blood Culture (Wb) - Right Wrist Blood Culture - Final No growth in 5 days. 08/07/22 16:50 Blood Culture (Wb) - Left Foot Blood Culture - Final No growth in 5 days. 08/11/22 01:10 Stool C. difficile DNA Amplification - Final 08/10/22 12:00 Stool Stool Occult Blood (ISAIAS) - Final Occult Blood Positive 08/07/22 15:30 Urine, Clean Catch Urine Culture - Final Pseudomonas fluorescens 08/07/22 15:33 Sputum, Tracheal Aspirate Gram Stain - Final 08/07/22 15:33 Sputum, Tracheal Aspirate Respiratory Culture - Final Mixed normal respiratory ny. No Streptococcus pneumoniae, beta-hemolytic Streptococcus or Staphylococcus aureus isolated. Radiography Diagnostic Testing: Radiology Impression Renal Ultrasound 08/08/22 08:23 IMPRESSION: Normal ultrasound of the kidneys. Electronically Signed: Sunil Quintanilla MD at 8:03 EST , Rhythm Strip Rhythm Strip: Sinus Tach Rate: 120 Physical Exam Narrative Const alert, no apparent distress and well nourished HEENT head/scalp atraumatic and moist oral mucous membranes HEENT Narrative: Mallampati 2, no thrush Head and Scalp: normocephalic Resp normal respiratory effort, no retractions, no use of accessory muscles and clear to auscultation bilaterally Auscultation: Negative for crackles, rhonchi or wheezes Cardio regular rate, regular rhythm, S1 normal heart sound, S2 normal heart sound, no murmurs, no rub, no gallops, no clicks and no JVD GI normal to inspection, nondistended, normoactive bowel sounds, soft to palpation and non-tender Extremity no clubbing, cyanosis or edema Extremity Narrative: 2+ pedal pulses, 3+ pitting edema bilateral lower and upper extremities, no cyanosis or clubbing Neuro moves all extremities and no focal motor deficits Neuro Narrative: Significant generalized weakness, vocal quality has improved again today from yesterday Speech: Negative for speech normal Motor Exam: Negative for strength 5/5 throughout Assessment & Plan Assessment/Plan (1) Anemia: PLAN: Acute blood loss anemia with thrombocytopenia 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 Recommend upper endoscopy to evaluate upper GI tract for stress-induced gastritis stress-induced ulcerations. There were possibly biopsies done in upper GI tract but also could have caused bleeding. Recommend to stop PPI drip and only have her on famotidine 40 mg a day. There is a possibility that the Protonix could have caused thrombocytopenia. N.p.o. past midnight for EGD in the morning. Charges/Coding Visit Charges Inpatient E&M: 52904 Subs Hosp L2
[2022-08-13] MEDS: 0.9% Saline Lock 10 ML Syringe IV (21:42)
[2022-08-14] VITALS (14 sets, daily range): BP systolic 80–130; BP diastolic 43–71; PULSE 68–100; RESP 14–20; TEMP 36.2–36.9; O2SAT 88–96; BMI 35.2
[2022-08-14] MEDS: Insulin Lispro 100 UNIT/ML INSULN.PEN SC (00:08)
[2022-08-14 01:01] LABS: Bedside Glucose 168 mg/dL (74-106)
[2022-08-14 05:56] LABS: Bedside Glucose 165 mg/dL (74-106)
[2022-08-14] MEDS: 0.9% Saline Lock 10 ML Syringe IV ×2 (06:43→09:30)
[2022-08-14 07:04] LABS: Absolute Lymphocyte Count 2.05 X10^3/uL (0.83-4.51); Absolute Neutrophil Count 4.6 X10^3/uL (2.0-7.7); Basophil# 0.07 X10^3/uL; Basophil% 0.8 % (0-1); Eosinophils% 2.3 % (0-5); Hematocrit 35.8 % (37-47); Hemoglobin 11.7 g/dL (12.0-15.0); Lymphocyte # 2.05 X10^3/ul (0.83-4.51); Lymphocyte % 23.8 % (19-41); Mean Corp Hgb Conc 32.7 g/dL (32-36); Mean Corpuscular Hgb 28.1 pg (27.0-32.0); Mean Corpuscular Volume 85.9 fL (81-99); Monocyte# 1.33 X10^3/uL; Monocyte% 15.4 % (0-10); NRBC Flagged by Analyzer 0.2 % (0-5); Neutrophil # 4.57 X10^3/uL (2.7-7.7); Neutrophil % 53.2 % (47-70); POSITIVE COUNT YES; Platelet Count 79 K/mm3 (150-450); RBC Distribution Width CV 15.8 % (11.6-14.6); RBC Distribution Width SD 49.3 fl (35.1-43.9); Red Blood Count 4.17 M/mm3 (4.2-5.4); White Blood Count 8.6 K/mm3 (4.4-11.0)
[2022-08-14 07:10] LABS: Differential Indicated SCAN CRITERIA MET
[2022-08-14 07:32] LABS: Anion Gap 15 (5-15); BUN 36 mg/dL (7-18); BUN/Creat Ratio 11.1 RATIO (10-20); Calcium,Total 7.6 mg/dL (8.5-10.1); Chloride 97 mmol/L (98-107); Creatinine, Serum 3.25 mg/dL (0.55-1.02); EST Glomerular Filtration Rate 16 mL/min (>60); Est Glom Filt Rate - Afr Amer 19 mL/min (>60); Estimated Creatinine Clearance 14.24 ml/min; Glucose 153 mg/dL (74-106); Magnesium 1.9 mg/dL (1.6-2.6); Potassium 3.8 mmol/L (3.5-5.1); Sodium Level 140 mmol/L (136-145)
[2022-08-14 08:05] LABS: Platelet Estimate MOD DEC (ADEQ); Rouleaux 1+
[2022-08-14 08:51] LABS: Prothrombin Time (Protime)PT. 12.8 SECONDS (11.7-14.9)
[2022-08-14 08:52] LABS: Partial Thromboplast Time 29.9 Seconds (24.1-36.2)
--- NOTE | 2022-08-14 09:14 | PCM.PN.SRG ---
Subjective Subjective Patient has no new complaints Objective Data Objective Data Vital Signs: Vital Signs Temp Pulse Resp BP Pulse Ox O2 Del Method O2 Flow Rate 97.8 F 81 18 130/69 H 92 Room Air 2 08/14/22 03:39 08/14/22 03:39 08/14/22 03:39 08/14/22 03:39 08/14/22 03:39 08/14/22 03:41 08/13/22 07:00 FiO2 45 08/13/22 02:00 Oxygen Flow Rate (L/min) 2 Oxygen Delivery Method Room Air Weight: 191 lb 2.252 oz Body Mass Index (BMI) 35.2 Intake & Output: Intake and Output for Last 24 Hours 08/12/22 08/13/22 08/14/22 23:59 23:59 23:59 Intake Total 1527.5 / 1527.5 720 / 720 50 / 50 Output Total 2360 / 2360 80 / 130 100 / 100 Balance -832.5 / -832.5 640 / 590 -50 / -50 Lab / Micro Data Result Diagrams: 08/14/22 06:50 08/14/22 06:50 Labs: Laboratory Results - last 24 hr 08/11/22 07:25: Crossmatch See Detail 08/13/22 03:25: Diff Path Review Reviewed 08/13/22 13:03: POC Glucose 144 H 08/13/22 17:20: POC Glucose 150 H 08/14/22 00:07: POC Glucose 168 H 08/14/22 05:23: POC Glucose 165 H 08/14/22 06:50: Sodium 140, Potassium 3.8, Chloride 97 L, Carbon Dioxide 28.0, Anion Gap 15, BUN 36 H, Creatinine 3.25 H, Estim Creat Clear Calc 14.24, Est GFR (MDRD) Af Amer 19 L, Est GFR (MDRD) Non-Af 16 L, BUN/Creatinine Ratio 11.1, Glucose 153 H, Calcium 7.6 L, Magnesium 1.9 08/14/22 06:50: WBC 8.6, RBC 4.17 L, Hgb 11.7 L, Hct 35.8 L, MCV 85.9, MCH 28.1, MCHC 32.7 D, RDW Std Deviation 49.3 H, RDW Coeff of Jacqueline 15.8 H, Plt Count 79 L, MPV 12.0, Immature Gran % (Auto) 4.500 H, Neut % (Auto) 53.2, Lymph % (Auto) 23.8, [place] % (Auto) 15.4 H, Eos % (Auto) 2.3, Baso % (Auto) 0.8, Absolute Neuts (auto) 4.6, Absolute Lymphs (auto) 2.05, Nucleated RBC % 0.2, Platelet Estimate MOD DEC, Rouleaux 1+ 08/14/22 06:50: PT 12.8, INR 1.0, APTT 29.9 Micro: Microbiology 08/07/22 16:45 Blood Culture (Wb) - Right Wrist Blood Culture - Final No growth in 5 days. 08/07/22 16:50 Blood Culture (Wb) - Left Foot Blood Culture - Final No growth in 5 days. 08/11/22 01:10 Stool C. difficile DNA Amplification - Final 08/10/22 12:00 Stool Stool Occult Blood (ISAIAS) - Final Occult Blood Positive 08/07/22 15:30 Urine, Clean Catch Urine Culture - Final Pseudomonas fluorescens 08/07/22 15:33 Sputum, Tracheal Aspirate Gram Stain - Final 08/07/22 15:33 Sputum, Tracheal Aspirate Respiratory Culture - Final Mixed normal respiratory ny. No Streptococcus pneumoniae, beta-hemolytic Streptococcus or Staphylococcus aureus isolated. Rhythm Strip Rhythm Strip: Sinus Tach Rate: 120 Physical Exam Narrative Temporary left IJ dialysis catheter in place, right subclavian triple-lumen catheter in place Const oriented x3 and no apparent distress Resp normal respiratory effort Cardio regular rate Assessment & Plan Assessment/Plan (1) MARY (acute kidney injury): PLAN: Plan As scheduled on Wednesday at 7:30 AM for a right possible left tunneled dialysis catheter. Discussed procedure including risk but not limited to bleeding, infection, malfunction of catheter and anesthesia. Patient no further question this time. We will check to see if we are able to remove the temporary dialysis catheter and right subclavian prior to that time or that may dictate which side issues for the tunneled. Leslie Simons M.D. Pager: [phone] [facility] [address] [place] [address], [facility], [address] [place] [address] Office: [phone] Charges/Coding Visit Charges Inpatient E&M: 57622 Subs Hosp L2
[2022-08-14] MEDS: levETIRAcetam IV 1,000 MG/100 ML BAG 400 MG IV ×2 (09:25→21:42)
[2022-08-14] MEDS: Menthol/Lanolin/Calamine/Znox 113 GM Tube 1 APPLIC TOPICAL ×2 (09:35→21:42)
--- NOTE | 2022-08-14 10:59 | CASEMGMT ---
It is being recommended patient go somewhere for short term rehab. SW spoke with patient and introduced self and role at [facility]. SW explained recommendations and patient agrees. SW provided a list of [facility] facility providers including quality and resource use data and consistent with patient?s preferred geographic region, medical needs, and insurance network were provided from the [employer] Guide. SW let patient know that she will need to pick 3 facilities she would be okay with and SW will check with facilities. SW did explain to patient that transportation to dialysis is often difficult for facilities. SW told patient that [facility] and [facility] are 2 facilities that often are able to provide transport. SW let patient know she does not have to pick those SW jsut wanted her to be aware. Patient will look over list. SW will possibly check back Wednesday for patient's choices. Plan: SNF when medically ready, patient choices, accepting facility, and insurance approval. Carolynn Pino SWEAT [employer]OX ATTENDANT JEFRY
[2022-08-14 12:10] LABS: Bedside Glucose 139 mg/dL (74-106)
--- NOTE | 2022-08-14 12:25 | PN.HOSP_ITS ---
Reason for Visit Reason for Visit: Unresponsiveness Subjective Subjective No issues overnight. Patient is comfortable. Awaiting EGD and PEG placement later today. Patient is now alert and oriented x3. States her has not come in as he is quite intimidated by everything that has gone on. Her daughter came to visit yesterday. She works third shift at [employer] so she is not able to come in during the day. Objective Data Objective Data Vital Signs: Vital Signs Temp Pulse Resp BP Pulse Ox O2 Del Method O2 Flow Rate 98.5 F 83 15 100/53 L 92 Room Air 2 08/14/22 09:32 08/14/22 09:32 08/14/22 09:32 08/14/22 09:32 08/14/22 09:32 08/14/22 09:32 08/13/22 07:00 FiO2 45 08/13/22 02:00 Oxygen Flow Rate (L/min) 2 Oxygen Delivery Method Room Air Weight: 86.7 kg Body Mass Index (BMI) 35.2 Intake & Output: Intake and Output for Last 24 Hours 08/12/22 08/13/22 08/14/22 23:59 23:59 23:59 Intake Total 1527.5 / 1527.5 720 / 720 260 / 260 Output Total 2360 / 2360 80 / 130 300 / 300 Balance -832.5 / -832.5 640 / 590 -40 / -40 Lab / Micro Data Result Diagrams: 08/14/22 06:50 08/14/22 06:50 Labs: Laboratory Results - last 24 hr 08/11/22 07:25: Crossmatch See Detail 08/13/22 13:03: POC Glucose 144 H 08/13/22 17:20: POC Glucose 150 H 08/14/22 00:07: POC Glucose 168 H 08/14/22 05:23: POC Glucose 165 H 08/14/22 06:50: Sodium 140, Potassium 3.8, Chloride 97 L, Carbon Dioxide 28.0, Anion Gap 15, BUN 36 H, Creatinine 3.25 H, Estim Creat Clear Calc 14.24, Est GFR (MDRD) Af Amer 19 L, Est GFR (MDRD) Non-Af 16 L, BUN/Creatinine Ratio 11.1, Glucose 153 H, Calcium 7.6 L, Magnesium 1.9 08/14/22 06:50: WBC 8.6, RBC 4.17 L, Hgb 11.7 L, Hct 35.8 L, MCV 85.9, MCH 28.1, MCHC 32.7 D, RDW Std Deviation 49.3 H, RDW Coeff of Jacqueline 15.8 H, Plt Count 79 L, MPV 12.0, Immature Gran % (Auto) 4.500 H, Neut % (Auto) 53.2, Lymph % (Auto) 2 3.8, [place] % (Auto) 15.4 H, Eos % (Auto) 2.3, Baso % (Auto) 0.8, Absolute Neuts (auto) 4.6, Absolute Lymphs (auto) 2.05, Nucleated RBC % 0.2, Platelet Estimate MOD DEC, Rouleaux 1+ 08/14/22 06:50: PT 12.8, INR 1.0, APTT 29.9 08/14/22 11:52: POC Glucose 139 H Micro: Microbiology 08/07/22 16:45 Blood Culture (Wb) - Right Wrist Blood Culture - Final No growth in 5 days. 08/07/22 16:50 Blood Culture (Wb) - Left Foot Blood Culture - Final No growth in 5 days. 08/11/22 01:10 Stool C. difficile DNA Amplification - Final 08/10/22 12:00 Stool Stool Occult Blood (ISAIAS) - Final Occult Blood Positive 08/07/22 15:30 Urine, Clean Catch Urine Culture - Final Pseudomonas fluorescens 08/07/22 15:33 Sputum, Tracheal Aspirate Gram Stain - Final 08/07/22 15:33 Sputum, Tracheal Aspirate Respiratory Culture - Final Mixed normal respiratory ny. No Streptococcus pneumoniae, beta-hemolytic Streptococcus or Staphylococcus aureus isolated. Rhythm Strip Rhythm Strip: Sinus Tach Rate: 120 Physical Exam Narrative Const alert, oriented x3, no apparent distress and well nourished Constitutional Narrative: Middle-aged white female, on room air, sitting up in bed, appears comfortable, nontoxic HEENT head/scalp atraumatic and moist oral mucous membranes HEENT Narrative: Mallampati 2-3, dentition is good, no thrush Head and Scalp: normocephalic Resp normal respiratory effort, no retractions, no use of accessory muscles and clear to auscultation bilaterally Resp Narrative: om RA Auscultation: Negative for crackles, rhonchi or wheezes Cardio regular rate, regular rhythm, S1 normal heart sound, S2 normal heart sound, no murmurs, no rub, no gallops, no clicks and no JVD GI normal to inspection, nondistended, normoactive bowel sounds, soft to palpation and non-tender Extremity no clubbing, cyanosis or edema Extremity Narrative: 2+ pedal pulses, 2+ pitting edema bilateral lower and upper extremities, no cyanosis or clubbing Skin Skin Narrative: Right subclavian line with dressing clean dry and intact, left IJ HD catheter with dressing clean dry and intact Neuro oriented x3, moves all extremities and no focal motor deficits Neuro Narrative: Voice is much stronger today, still with significant generalized weakness, mentation is improving significantly Motor Exam: Negative for strength 5/5 throughout Psych Psych Narrative: Affect and mood overall seem to be improving on a daily basis Assessment & Plan Assessment/Plan (1) Acute hypotension: (2) Shock: (3) Metabolic acidosis: (4) Toxic metabolic encephalopathy: (5) Acute respiratory failure with hypoxia and hypercapnia: (6) Hypothermia: (7) Vitamin D deficiency: (8) Lactic acidosis: (9) Acute renal failure: (10) Bradycardia: (11) Acute respiratory failure with hypoxia: (12) Hypomagnesemia: (13) Anemia: (14) Thrombocytopenia: (15) Hypokalemia: PLAN: Plan Shock -Etiology is unclear as cultures are unremarkable overall -Resolved -Metformin level, methanol level, and cyanide level are all still pending -Ethylene glycol was negative on admission Acute hypoxic respiratory failure -Initial ABG demonstrated pH of less than 6.5 with a PCO2 of 26.4 and a PO2 of 282 -Intubated on presentation 08/07/2022 -Extubated 08/11/2022 -Has been weaned to room air thus acute hypoxic respiratory failure is resolved -Continue aggressive incentive spirometry -Pep therapy MARY on CKD stage IIIb -Baseline serum creatinine appears to be between 1.5 and 1.7 -Serum creatinine at presentation was 5.6 -Remains oliguric--> 300 cc out in the last 24 hours which seems to be improved -Hopeful for renal recovery -Nephrology following -Dialysis per nephrology -Per general surgery documentation-tunneled dialysis catheter to be placed on Wednesday morning Dysphagia -Speech is following -modified barium swallow from 08/13/2022 did poorly speech therapy does not anticipate fast improvement -PEG placement today with EGD Acute anemia -Hemoglobin with significant drop to 6.6 on the a.m. of 08/10/2022 and required 1 unit of blood--> repeat improved to 7.5--> hemoglobin down again on the a.m. of 08/11/2022 at 6.9--> 2 units packed red blood cells given--> slight trend down in hemoglobin but still 11.2 -Repeat CBC in a.m. -9.3 admission -Guaiac was positive -Continue IV Protonix until enteral access is available -Repeat CBC in a.m. -GI recommended EGD later today -Lower GI bleed highly unlikely with recent colonoscopy and no intervention -Patient with recent colonoscopy done at [facility] in [place] done by Dr. Drew Thrombocytopenia -Platelet count slowly improving and up to 79,000 -Today is the first day her platelet count has not trended down -Stopped subcu heparin on 08/10/2022 3 and avoid anticoagulation -HIT antibody is pending--> if positive will place heparin as an allergy -Repeat CBC in a.m. Toxic/metabolic encephalopathy -CT of the brain shows no acute findings -Old vascular disease noted -Should continue to improve as metabolic issues normalize -much improved since admission DM-2 -Fasting blood sugar with only sliding scale 153 and overall blood sugars look fairly well controlled at this point -Continue sliding scale insulin for now -Accu-Cheks as ordered Hypokalemia -Resolved Seizure disorder -Continue IV Keppra--> transition to enteral once PEG is able to be used Chronic headaches -Lamictal and Topamax are for these -Restart these medications once cleared for diet Vitamin D deficiency -Restart vitamin D supplementation at discharge Hypertension -Off pressors -Patient now normotensive -Continue to hold amlodipine/HCTZ/ANUM inhibitor -Monitor for to the ability to restart -As needed hydralazine GERD -Protonix drip IV push twice daily 40 mg Pancreatic insufficiency -Hold Creon -Restart when p.o. intake has been reinitiated Depression/insomnia -Hold Effexor -Hold trazodone DVT prophylaxis -SCDs -Heparin discontinued secondary to thrombocytopenia -HIT antibody remains pending CODE STATUS -Full code Charges/Coding Visit Charges Inpatient E&M: 13848 Subs Hosp L2
--- NOTE | 2022-08-14 13:40 | PN.RENAL_ITS ---
Subjective Subjective Follow-up on acute kidney injury, dialysis dependent. Had a EGD today, scheduled for dialysis this afternoon. She continues to make no urine. She is on room air and doing okay. Continues to be quite edematous Objective Data Objective Data Vital Signs: Vital Signs Temp Pulse Resp BP Pulse Ox O2 Del Method O2 Flow Rate 98.3 F 80 18 104/48 L 92 Room Air 2 08/14/22 13:16 08/14/22 13:16 08/14/22 13:16 08/14/22 13:16 08/14/22 13:16 08/14/22 13:16 08/13/22 07:00 FiO2 45 08/13/22 02:00 Oxygen Flow Rate (L/min) 2 Oxygen Delivery Method Room Air Weight: 86.7 kg Body Mass Index (BMI) 35.2 Intake & Output: Intake and Output for Last 24 Hours 08/12/22 08/13/22 08/14/22 23:59 23:59 23:59 Intake Total 1527.5 / 1527.5 720 / 720 260 / 260 Output Total 2360 / 2360 80 / 130 300 / 300 Balance -832.5 / -832.5 640 / 590 -40 / -40 Lab / Micro Data Attestation: I reviewed the patient's lab results. Result Diagrams: 08/14/22 06:50 08/14/22 06:50 Labs: Laboratory Results - last 24 hr 08/11/22 07:25: Crossmatch See Detail 08/13/22 17:20: POC Glucose 150 H 08/14/22 00:07: POC Glucose 168 H 08/14/22 05:23: POC Glucose 165 H 08/14/22 06:50: Sodium 140, Potassium 3.8, Chloride 97 L, Carbon Dioxide 28.0, Anion Gap 15, BUN 36 H, Creatinine 3.25 H, Estim Creat Clear Calc 14.24, Est GFR (MDRD) Af Amer 19 L, Est GFR (MDRD) Non-Af 16 L, BUN/Creatinine Ratio 11.1, Glucose 153 H, Calcium 7.6 L, Magnesium 1.9 08/14/22 06:50: WBC 8.6, RBC 4.17 L, Hgb 11.7 L, Hct 35.8 L, MCV 85.9, MCH 28.1, MCHC 32.7 D, RDW Std Deviation 49.3 H, RDW Coeff of Jacqueline 15.8 H, Plt Count 79 L, MPV 12.0, Immature Gran % (Auto) 4.500 H, Neut % (Auto) 53.2, Lymph % (Auto) 23.8, [place] % (Auto) 15.4 H, Eos % (Auto) 2.3, Baso % (Auto) 0.8, Absolute Neuts (auto) 4.6, Absolute Lymphs (auto) 2.05, Nucleated RBC % 0.2, Platelet Estimate MOD DEC, Rouleaux 1+ 08/14/22 06:50: PT 12.8, INR 1.0, APTT 29.9 08/14/22 11:52: POC Glucose 139 H Micro: Microbiology 08/07/22 16:45 Blood Culture (Wb) - Right Wrist Blood Culture - Final No growth in 5 days. 08/07/22 16:50 Blood Culture (Wb) - Left Foot Blood Culture - Final No growth in 5 days. 08/11/22 01:10 Stool C. difficile DNA Amplification - Final 08/10/22 12:00 Stool Stool Occult Blood (ISAIAS) - Final Occult Blood Positive 08/07/22 15:30 Urine, Clean Catch Urine Culture - Final Pseudomonas fluorescens 08/07/22 15:33 Sputum, Tracheal Aspirate Gram Stain - Final 08/07/22 15:33 Sputum, Tracheal Aspirate Respiratory Culture - Final Mixed normal respiratory ny. No Streptococcus pneumoniae, beta-hemolytic Streptococcus or Staphylococcus aureus isolated. Rhythm Strip Rhythm Strip: Sinus Tach Rate: 120 Physical Exam Const alert and no apparent distress HEENT normocephalic Head and Scalp: atraumatic Neck no lymphadenopathy Resp Auscultation: diminished lung sounds bilateral throughout GI non-tender Auscultation: normoactive bowel sounds Skin no rashes or lesions noted Psych cooperative Assessment & Plan Assessment/Plan (1) MARY (acute kidney injury): PLAN: Awaiting tunneled hemodialysis catheter placement, which will be done on Wednesday. I suspect she will need dialysis as an outpatient foot has been discussed with community mental health social worker. Continue with aggressive fluid removal
--- NOTE | 2022-08-14 14:07 | WOUNDNOTE ---
Pt is currently off the unit for testing. not able to assess coccyx at this time.
--- NOTE | 2022-08-14 15:20 | NS ---
When appropriate for use, recommend Nepro Carb Steady via PEG at 40mL/hour w/ 125mL H2O flush every 4 hours to provide 1699 calories, 78 g protein, and 1448mL total fluid/day. Would start at 20mL/hour and increase by 10mL/hour every 8-12 hours as tolerated until goal rate is achieved. Loren Garces MS, RDN, LD
--- NOTE | 2022-08-14 16:56 | OP.EGD_ITS ---
Patient Name: Lucía Lowe Procedure Date: 08/14/2022 4:03 PM Date of : 1965 Age: 56 Procedure: Upper GI endoscopy Indications: Dysphagia, Melena Providers: Eric Hameed DO Medicines: Monitored Anesthesia Care Patient Profile: This is a 56 year old female. Refer to note in patient chart for documentation of history and physical. Patient has symptoms of dysphagia with both liquids and solids. Complications: No immediate complications. Procedure: Pre-Anesthesia Assessment: - Prior to the procedure, a History and Physical was performed, and patient medications and allergies were reviewed. The patient is competent. The risks and benefits of the procedure and the sedation options and risks were discussed with the patient. All questions were answered and informed consent was obtained. Patient identification and proposed procedure were verified by the physician in the pre-procedure area. Mental Status Examination: alert and oriented. Airway Examination: normal oropharyngeal airway and neck mobility. Respiratory Examination: clear to auscultation. CV Examination: normal. Prophylactic Antibiotics: The patient does not require prophylactic antibiotics. Prior Anticoagulants: The patient has taken no previous anticoagulant or antiplatelet agents. ASA Grade Assessment: II - A patient with mild systemic disease. After reviewing the risks and benefits, the patient was deemed in satisfactory condition to undergo the procedure. The anesthesia plan was to use monitored anesthesia care (MAC). Immediately prior to administration of medications, the patient was re-assessed for adequacy to receive sedatives. The heart rate, respiratory rate, oxygen saturations, blood pressure, adequacy of pulmonary ventilation, and response to care were monitored throughout the procedure. The physical status of the patient was re-assessed after the procedure. After obtaining informed consent, the endoscope was passed under direct vision. Throughout the procedure, the patient's blood pressure, pulse, and oxygen saturations were monitored continuously. The gastroscope was introduced through the mouth, and advanced to the second part of duodenum. The upper GI endoscopy was accomplished without difficulty. The patient tolerated the procedure well. Scope In: 4:14:30 PM Scope Out: 4:30:39 PM Total Procedure Duration Time 0 hours 16 minutes 9 seconds Findings: The examined esophagus was normal. A large hiatal hernia was present. Two oozing cratered gastric ulcers with pigmented material were found in the cardia. The largest lesion was 6 mm in largest dimension. Coagulation for hemostasis using heater probe was successful. Estimated blood loss was minimal. Mild inflammation was found in the gastric body. The patient was placed in the supine position for PEG placement. The stomach was insufflated to appose gastric and abdominal garcia. A site was located in the body of the stomach with excellent transillumination for placement. The abdominal wall was marked and prepped in a sterile manner. The area was anesthetized with 1 mL of 0.5% lidocaine. The trocar needle was introduced through the abdominal wall and into the stomach under direct endoscopic view. A snare was introduced through the endoscope and opened in the gastric lumen. The guide wire was passed through the trocar and into the open snare. The snare was closed around the guide wire. The endoscope and snare were removed, pulling the wire out through the mouth. A skin incision was made at the site of needle insertion. The externally removable 20 Fr Bard gastrostomy tube was lubricated. The G-tube was tied to the guide wire and pulled through the mouth and into the stomach. The trocar needle was removed, and the gastrostomy tube was pulled out from the stomach through the skin. The external bumper was attached to the gastrostomy tube, and the tube was cut to remove the guide wire. The final position of the gastrostomy tube was confirmed by relook endoscopy, and skin marking noted to be 4 cm at the external bumper. The final tension and compression of the abdominal wall by the PEG tube and external bumper were checked. The feeding tube was capped, and the tube site cleaned and dressed. Estimated blood loss was minimal. The second portion of the duodenum was normal. Impression: - Normal esophagus. - Large hiatal hernia. - Oozing gastric ulcers with pigmented material. Treated with a heater probe. - Gastritis. - Normal second portion of the duodenum. - An externally removable PEG placement was successfully completed. - No specimens collected. Recommendation: - [facility]. - NPO. - Continue present medications. Procedure Code(s): --- Professional --- 95809, 59, Esophagogastroduodenoscopy, flexible, transoral; with control of bleeding, any method 21797, Esophagogastroduodenoscopy, flexible, transoral; with directed placement of percutaneous gastrostomy tube CPT copyright 2017 [employer]. All rights reserved. The codes documented in this report are preliminary and upon beet flumer review may be revised to meet current compliance requirements. Eric Hameed DO 08/14/2022 4:56:24 PM This report has been signed electronically. Number of Addenda: 0 Note Initiated On: 08/14/2022 4:03 PM
--- NOTE | 2022-08-14 16:57 | OP.CCLET_ITS ---
08/14/2022 Abdirashid Anthony [address] [place] [address] Re : Upper GI endoscopy procedure for Lucía Lowe Dear Dr. Anthony This procedure was performed on Sunday, August 14, 2022. My impressions and recommendations are as follows: Impressions : - Normal esophagus. - Large hiatal hernia. - Oozing gastric ulcers with pigmented material. Treated with a heater probe. - Gastritis. - Normal second portion of the duodenum. - An externally removable PEG placement was successfully completed. - No specimens collected. Recommendations : - [facility]. - NPO. - Continue present medications. My findings are described in the full procedure note, which is enclosed. If I can be of further assistance, please feel free to contact me at . Sincerely, Eric Hameed, 08/14/2022 4:56:24 PM This report has been signed electronically.
--- NOTE | 2022-08-14 17:57 | DIALYSIS ---
HD set up and waited for pt to return from endo. upon return pt is found to be hypotensive with natalie 86/47 and all 92/[address] Jose updated on pt's current status. Hold HD for today, will plan to run tomorrow as fluid removal is needed. pt is without distress. Jody RN at bedside and aware.
[2022-08-14 18:16] LABS: Bedside Glucose 147 mg/dL (74-106)
--- NOTE | 2022-08-14 23:12 | NURSING ---
Pt noted with order to d/c central line. Pt noted with decreased blood pressure and generalized edema, if peripheral IV is lost new IV start will be challenging.Pt hematology drawl from central line this AM. Dr Sanderson aware of this RN concerns, central line may remain until AM, review order with Dr Pierre.
[2022-08-15] VITALS (8 sets, daily range): BP systolic 103–128; BP diastolic 39–64; PULSE 82–90; RESP 16–20; TEMP 36.5–36.8; O2SAT 93–98; BMI 34.6
[2022-08-15] MEDS: Insulin Lispro 100 UNIT/ML INSULN.PEN SC ×3 (00:24→17:49)
[2022-08-15 00:45] LABS: Bedside Glucose 163 mg/dL (74-106)
[2022-08-15 06:50] LABS: Bedside Glucose 158 mg/dL (74-106)
[2022-08-15 07:01] LABS: Hematocrit 34.1 % (37-47); Hemoglobin 11.1 g/dL (12.0-15.0); Mean Corp Hgb Conc 32.6 g/dL (32-36); Mean Corpuscular Hgb 28.5 pg (27.0-32.0); Mean Corpuscular Volume 87.7 fL (81-99); Mean Platelet Vol. 10.9 fl (6.2-12.0); POSITIVE COUNT YES; POSITIVE MORPHOLOGY YES; Platelet Count 147 K/mm3 (150-450); RBC Distribution Width CV 15.9 % (11.6-14.6); RBC Distribution Width SD 51.1 fl (35.1-43.9); Red Blood Count 3.89 M/mm3 (4.2-5.4); White Blood Count 9.6 K/mm3 (4.4-11.0)
[2022-08-15 07:03] LABS: Differential Indicated MANUAL DIFF
--- NOTE | 2022-08-15 07:04 | PN.SURG_ITS ---
Subjective Subjective Patient seen and examined during AM rounds. Plan is for dialysis today and then probably not until Wednesday. According to bedside nursing, patient did not pass swallow eval with speech therapy yesterday. There is hesitation on the part of nursing to remove right subclavian access because otherwise there is only a peripheral IV in patient's right upper extremity and with her anasarca there is concern about being able to obtain alternative access if this were to fail. Patient did have PEG tube placed yesterday with gastroenterology, but no instructions for use have been given just yet. Objective Data Objective Data Vital Signs: Vital Signs Temp Pulse Resp BP Pulse Ox O2 Del Method O2 Flow Rate 98.1 F 84 20 H 104/60 97 Room Air 3 08/15/22 03:40 08/15/22 03:40 08/15/22 03:40 08/15/22 03:40 08/15/22 03:40 08/15/22 03:40 08/14/22 18:01 FiO2 45 08/13/22 02:00 Oxygen Flow Rate (L/min) 3 Oxygen Delivery Method Room Air Weight: 188 lb 4.396 oz Body Mass Index (BMI) 34.6 Intake & Output: Intake and Output for Last 24 Hours 08/13/22 08/14/22 08/15/22 23:59 23:59 23:59 Intake Total 720 / 720 920 / 920 0 / 0 Output Total 80 / 130 550 / 550 100 / 100 Balance 640 / 590 370 / 370 -100 / -100 Lab / Micro Data Result Diagrams: 08/15/22 06:51 08/15/22 06:51 Labs: Laboratory Results - last 24 hr 08/14/22 06:50: Sodium 140, Potassium 3.8, Chloride 97 L, Carbon Dioxide 28.0, Anion Gap 15, BUN 36 H, Creatinine 3.25 H, Estim Creat Clear Calc 14.24, Est GFR (MDRD) Af Amer 19 L, Est GFR (MDRD) Non-Af 16 L, BUN/Creatinine Ratio 11.1, Gl ucose 153 H, Calcium 7.6 L, Magnesium 1.9 08/14/22 06:50: WBC 8.6, RBC 4.17 L, Hgb 11.7 L, Hct 35.8 L, MCV 85.9, MCH 28.1, MCHC 32.7 D, RDW Std Deviation 49.3 H, RDW Coeff of Jacqueline 15.8 H, Plt Count 79 L, MPV 12.0, Immature Gran % (Auto) 4.500 H, Neut % (Auto) 53.2, Lymph % (Auto) 23.8, [place] % (Auto) 15.4 H, Eos % (Auto) 2.3, Baso % (Auto) 0.8, Absolute Neuts (auto) 4.6, Absolute Lymphs (auto) 2.05, Nucleated RBC % 0.2, Platelet Estimate MOD DEC, Rouleaux 1+ 08/14/22 06:50: PT 12.8, INR 1.0, APTT 29.9 08/14/22 11:52: POC Glucose 139 H 08/14/22 17:50: POC Glucose 147 H 08/15/22 00:22: POC Glucose 163 H 08/15/22 06:07: POC Glucose 158 H 08/15/22 06:51: WBC 9.6, RBC 3.89 L, Hgb 11.1 L, Hct 34.1 L, MCV 87.7, MCH 28.5, MCHC 32.6, RDW Std Deviation 51.1 H, RDW Coeff of Jacqueline 15.9 H, Plt Count 147 L, MPV 10.9, Neut % (Auto) Not Reportable Micro: Microbiology 08/07/22 16:45 Blood Culture (Wb) - Right Wrist Blood Culture - Final No growth in 5 days. 08/07/22 16:50 Blood Culture (Wb) - Left Foot Blood Culture - Final No growth in 5 days. 08/11/22 01:10 Stool C. difficile DNA Amplification - Final 08/10/22 12:00 Stool Stool Occult Blood (ISAIAS) - Final Occult Blood Positive 08/07/22 15:30 Urine, Clean Catch Urine Culture - Final Pseudomonas fluorescens 08/07/22 15:33 Sputum, Tracheal Aspirate Gram Stain - Final 08/07/22 15:33 Sputum, Tracheal Aspirate Respiratory Culture - Final Mixed normal respiratory ny. No Streptococcus pneumoniae, beta-hemolytic Streptococcus or Staphylococcus aureus isolated. Rhythm Strip Rhythm Strip: Sinus Tach Rate: 120 Physical Exam Const oriented x3 Constitutional Narrative: Patient appears frail Neck Neck Narrative: Left IJ hemodialysis catheter in place Chest Chest Narrative: Right subclavian CVC in place with mild crusting of blood around the insertion site. Resp normal respiratory effort GI GI Narrative: Obese, nondistended, soft, nontender to palpation. Left upper quadrant PEG tube with appropriate appearance Assessment & Plan Assessment/Plan (1) Acute renal failure: PLAN: Patient with acute renal failure being followed by nephrology. There is concern for need for ongoing dialysis post hospital discharge. Thus surgery has been consulted for placement of tunneled hemodialysis catheter. Plans are in place to complete this request 08/17/2022. In the interim, we are hoping to have right subclavian CVC discontinued. However, IV access would otherwise be limited and future access would be difficult given patient's anasarcic appearance. She did just receive a PEG tube yesterday with gastroenterology and I have asked Dr. Hameed if this is okay for use. He states that it can now be used for enteral access. Nursing to examine if patient's current medications can then all be administered via gastrostomy and peripheral IV can be kept for emergency access. If so, reiterated request for discontinuation of right-sided CVC so patient is ready for tunneled hemodialysis catheter placement on 08/17/2022. Further, patient needs to be n.p.o. past midnight on 08/16/2022. Thank you Charges/Coding Visit Charges Inpatient E&M: 69994 Subs Hosp L2
[2022-08-15 07:28] LABS: Eosinophil 2 % (0-5); Lymphocyte 23 % (19-41); Monocyte 12 % (0-10); Myelocyte 1 % (0-0); Neutrophil-Band 3 % (0-5); Neutrophil-Segmented 59 % (47-70); Total Cells Counted 100 (MANUAL DIFF)
[2022-08-15 07:29] LABS: Neutrophil # 6.02 X10^3/uL (2.7-7.7)
[2022-08-15 07:31] LABS: Pathologist Review May foll; Platelet Estimate ADEQUATE (ADEQ); Red Cell Morphology NORM C+C NORMAL (NORM C&C)
[2022-08-15 07:38] LABS: Anion Gap 23 (5-15); BUN 39 mg/dL (7-18); BUN/Creat Ratio 10.4 RATIO (10-20); Calcium,Total 7.8 mg/dL (8.5-10.1); Chloride 97 mmol/L (98-107); Creatinine, Serum 3.76 mg/dL (0.55-1.02); EST Glomerular Filtration Rate 13 mL/min (>60); Est Glom Filt Rate - Afr Amer 16 mL/min (>60); Estimated Creatinine Clearance 12.31 ml/min; Glucose 172 mg/dL (74-106); Potassium 3.8 mmol/L (3.5-5.1); Sodium Level 139 mmol/L (136-145)
[2022-08-15] MEDS: 0.9% Saline Lock 10 ML Syringe IV (08:49)
[2022-08-15] MEDS: levETIRAcetam IV 1,000 MG/100 ML BAG 400 MG IV (08:50)
[2022-08-15] MEDS: Menthol/Lanolin/Calamine/Znox 113 GM Tube 1 APPLIC TOPICAL ×2 (08:51→21:20)
--- NOTE | 2022-08-15 11:12 | PCM.PROGNOTE ---
Subjective Subjective Yesterday she underwent EGD for evaluation of upper GI bleed and feeding tube placement. She was discovered to have 2 bleeding and gastric ulcers secondary to dehisced previous fundoplication procedure. Bleeding was stopped and PEG tube was placed. Objective Data Objective Data Vital Signs: Vital Signs Temp Pulse Resp BP Pulse Ox O2 Del Method O2 Flow Rate 98.2 F 82 18 128/64 H 98 Nasal Cannula 3 08/15/22 08:45 08/15/22 08:45 08/15/22 08:45 08/15/22 08:45 08/15/22 08:59 08/15/22 08:59 08/15/22 08:59 FiO2 45 08/13/22 02:00 Oxygen Flow Rate (L/min) 3 Oxygen Delivery Method Nasal Cannula Weight: 188 lb 4.396 oz Body Mass Index (BMI) 34.6 Intake & Output: Intake and Output for Last 24 Hours 08/13/22 08/14/22 08/15/22 23:59 23:59 23:59 Intake Total 720 / 720 920 / 920 210 / 210 Output Total 80 / 130 550 / 550 100 / 100 Balance 640 / 590 370 / 370 110 / 110 Lab / Micro Data Result Diagrams: 08/15/22 06:51 08/15/22 06:51 Labs: Laboratory Results - last 24 hr 08/14/22 11:52: POC Glucose 139 H 08/14/22 17:50: POC Glucose 147 H 08/15/22 00:22: POC Glucose 163 H 08/15/22 06:07: POC Glucose 158 H 08/15/22 06:51: Sodium 139, Potassium 3.8, Chloride 97 L, Carbon Dioxide 19.0 L, Anion Gap 23 H, BUN 39 H, Creatinine 3.76 H, Estim Creat Clear Calc 12.31, Est GFR (MDRD) Af Amer 16 L, Est GFR (MDRD) Non-Af 13 L, BUN/Creatinine Ratio 10.4, Glucose 172 H, Calcium 7.8 L 08/15/22 06:51: WBC 9.6, RBC 3.89 L, Hgb 11.1 L, Hct 34.1 L, MCV 87.7, MCH 28.5, MCHC 32.6, RDW Std Deviation 51.1 H, RDW Coeff of Jacqueline 15.9 H, Plt Count 147 L, MPV 10.9, Neut % (Auto) Not Reportable, Absolute Neuts (auto) 6.0, Absolute Lymphs (auto) 2.20, Total Counted 100, Neutrophils % (Manual) 59, Band Neutrophils % 3, Lymphocytes % (Manual) 23, Monocytes % (Manual) 12 H, Eosinophils % (Manual) 2, Myelocytes % 1 H, Diff Path Review October, Platelet Estimate ADEQUATE, RBC Morphology NORM C+C Micro: Microbiology 08/07/22 16:45 Blood Culture (Wb) - Right Wrist Blood Culture - Final No growth in 5 days. 08/07/22 16:50 Blood Culture (Wb) - Left Foot Blood Culture - Final No growth in 5 days. 08/11/22 01:10 Stool C. difficile DNA Amplification - Final 08/10/22 12:00 Stool Stool Occult Blood (ISAIAS) - Final Occult Blood Positive 08/07/22 15:30 Urine, Clean Catch Urine Culture - Final Pseudomonas fluorescens 08/07/22 15:33 Sputum, Tracheal Aspirate Gram Stain - Final 08/07/22 15:33 Sputum, Tracheal Aspirate Respiratory Culture - Final Mixed normal respiratory ny. No Streptococcus pneumoniae, beta-hemolytic Streptococcus or Staphylococcus aureus isolated. Rhythm Strip Rhythm Strip: Sinus Tach Rate: 120 Physical Exam Narrative Const alert, no apparent distress and well nourished HEENT head/scalp atraumatic and moist oral mucous membranes HEENT Narrative: Mallampati 2, no thrush Head and Scalp: normocephalic Resp normal respiratory effort, no retractions, no use of accessory muscles and clear to auscultation bilaterally Auscultation: Negative for crackles, rhonchi or wheezes Cardio regular rate, regular rhythm, S1 normal heart sound, S2 normal heart sound, no murmurs, no rub, no gallops, no clicks and no JVD GI normal to inspection, nondistended, normoactive bowel sounds, soft to palpation and non-tender Extremity no clubbing, cyanosis or edema Extremity Narrative: 2+ pedal pulses, 3+ pitting edema bilateral lower and upper extremities, no cyanosis or clubbing Neuro moves all extremities and no focal motor deficits Neuro Narrative: Significant generalized weakness, vocal quality has improved again today from yesterday Speech: Negative for speech normal Motor Exam: Negative for strength 5/5 throughout Assessment & Plan Assessment/Plan (1) Anemia: PLAN: Acute blood loss anemia with thrombocytopenia 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 Anemia was determined to be blood loss anemia. She does not seem to be bleeding at this time. Recommend Protonix 40 mg IV every 12 hours. (2) Thrombocytopenia: PLAN: Thought to be secondary to dilution and acute illness.. A HIT panel is pending (3) Dysphagia: PLAN: Status post PEG tube placement. Hopefully if she gets her strength back we will be able to remove the PEG in the future. She is making very good progress. She does have severe anasarca secondary to protein, nutrition, acute illness and other factors. Charges/Coding Visit Charges Inpatient E&M: 66953 Subs Hosp L3
--- NOTE | 2022-08-15 11:15 | PCM.PN.HOSP ---
Reason for Visit Reason for Visit: Unresponsiveness Subjective Subjective No issues overnight. EGD on yesterday and showed dehiscence of her previous gastric bypass surgery. Patient is unable to remember how long ago she had this done. I reviewed records and [facility] but there is nothing in there from previous 08/10/2021. I have discussed with nursing to asked the when he comes in if he remembers what year this was done. I did order her subclavian vein triple-lumen catheter out yesterday however it has not yet been removed. I discussed with with nursing as well as the nursing wet room supervisor. Plan is to remove it today. Dialysis pending today. Objective Data Objective Data Vital Signs: Vital Signs Temp Pulse Resp BP Pulse Ox O2 Del Method O2 Flow Rate 98.2 F 82 18 128/64 H 98 Nasal Cannula 3 08/15/22 08:45 08/15/22 08:45 08/15/22 08:45 08/15/22 08:45 08/15/22 08:59 08/15/22 08:59 08/15/22 08:59 FiO2 45 08/13/22 02:00 Oxygen Flow Rate (L/min) 3 Oxygen Delivery Method Nasal Cannula Weight: 85.4 kg Body Mass Index (BMI) 34.6 Intake & Output: Intake and Output for Last 24 Hours 08/13/22 08/14/22 08/15/22 23:59 23:59 23:59 Intake Total 720 / 720 920 / 920 210 / 210 Output Total 80 / 130 550 / 550 100 / 100 Balance 640 / 590 370 / 370 110 / 110 Lab / Micro Data Result Diagrams: 08/15/22 06:51 08/15/22 06:51 Labs: Laboratory Results - last 24 hr 08/14/22 11:52: POC Glucose 139 H 08/14/22 17:50: POC Glucose 147 H 08/15/22 00:22: POC Glucose 163 H 08/15/22 06:07: POC Glucose 158 H 08/15/22 06:51: Sodium 139, Potassium 3.8, Chloride 97 L, Carbon Dioxide 19.0 L, Anion Gap 23 H, BUN 39 H, Creatinine 3.76 H, Estim Creat Clear Calc 12.31, Est GFR (MDRD) Af Amer 16 L, Est GFR (MDRD) Non-Af 13 L, BUN/Creatinine Ratio 10.4, Glucose 172 H, Calcium 7.8 L 08/15/22 06:51: WBC 9.6, RBC 3.89 L, Hgb 11.1 L, Hct 34.1 L, MCV 87.7, MCH 28.5, MCHC 32.6, RDW Std Deviation 51.1 H, RDW Coeff of Jacqueline 15.9 H, Plt Count 147 L, MPV 10.9, Neut % (Auto) Not Reportable, Absolute Neuts (auto) 6.0, Absolute Lymphs (auto) 2.20, Total Counted 100, Neutrophils % (Manual) 59, Band Neutrophils % 3, Lymphocytes % (Manual) 23, Monocytes % (Manual) 12 H, Eosinophils % (Manual) 2, Myelocytes % 1 H, Diff Path Review October, Platelet Estimate ADEQUATE, RBC Morphology NORM C+C Micro: Microbiology 08/07/22 16:45 Blood Culture (Wb) - Right Wrist Blood Culture - Final No growth in 5 days. 08/07/22 16:50 Blood Culture (Wb) - Left Foot Blood Culture - Final No growth in 5 days. 08/11/22 01:10 Stool C. difficile DNA Amplification - Final 08/10/22 12:00 Stool Stool Occult Blood (ISAIAS) - Final Occult Blood Positive 08/07/22 15:30 Urine, Clean Catch Urine Culture - Final Pseudomonas fluorescens 08/07/22 15:33 Sputum, Tracheal Aspirate Gram Stain - Final 08/07/22 15:33 Sputum, Tracheal Aspirate Respiratory Culture - Final Mixed normal respiratory ny. No Streptococcus pneumoniae, beta-hemolytic Streptococcus or Staphylococcus aureus isolated. Rhythm Strip Rhythm Strip: Sinus Tach Rate: 120 Physical Exam Narrative Const alert, oriented x3, no apparent distress and well nourished Constitutional Narrative: Middle-aged white female, on room air, sitting up in bed, appears comfortable, nontoxic, dialysis unit at bedside however dialysis nurses trying to find a unit that we will work HEENT head/scalp atraumatic and moist oral mucous membranes HEENT Narrative: Mallampati 2-3, no thrush Head and Scalp: normocephalic Eyes PERRL, EOMs intact bilaterally and conjunctivae normal Eyes Narrative: Conjunctiva are mildly pale, no scleral icterus Neck no lymphadenopathy and supple Neck Narrative: Left IJ in place-clean and dry dressing Resp normal respiratory effort, no retractions, no use of accessory muscles and clear to auscultation bilaterally Auscultation: Negative for crackles, rhonchi or wheezes Cardio regular rate, regular rhythm, S1 normal heart sound, S2 normal heart sound, no murmurs, no rub, no gallops, no clicks and no JVD GI normal to inspection, nondistended, normoactive bowel sounds and soft to palpation GI Narrative: Mild tenderness in the area of the PEG placement, PEG left upper quadrant Extremity Extremity Narrative: 2+ pedal pulses, 2+ pitting edema bilateral lower and upper extremities, no cyanosis or clubbing Skin Skin Narrative: left IJ HD catheter with dressing clean dry and intact, right subclavian line still in place to be removed yesterday-discussed with nursing and will be removed today Neuro oriented x3, moves all extremities and no focal motor deficits Neuro Narrative: Voice quality continues to improve Speech: Negative for speech normal Motor Exam: Negative for strength 5/5 throughout Psych Psych Narrative: Affect and mood appropriate for situation Assessment & Plan Assessment/Plan (1) Acute hypotension: (2) Shock: (3) Metabolic acidosis: (4) Toxic metabolic encephalopathy: (5) Acute respiratory failure with hypoxia and hypercapnia: (6) Hypothermia: (7) Vitamin D deficiency: (8) Lactic acidosis: (9) Acute renal failure: (10) Bradycardia: (11) Acute respiratory failure with hypoxia: (12) Hypomagnesemia: (13) Anemia: (14) Thrombocytopenia: (15) Hypokalemia: PLAN: Plan Shock -Etiology is still not determined -Specialty labs done on admission are still pending as noted below -Resolved -Metformin level, methanol level, and cyanide level are all still pending -Ethylene glycol was negative on admission Acute hypoxic respiratory failure -Initial ABG demonstrated pH of less than 6.5 with a PCO2 of 26.4 and a PO2 of 282 -Intubated on presentation 08/07/2022 -Extubated 08/11/2022 -Has been weaned to room air thus acute hypoxic respiratory failure is resolved -Continue aggressive incentive spirometry -Pep therapy MARY on CKD stage IIIb -Baseline serum creatinine appears to be between 1.5 and 1.7 -Serum creatinine at presentation was 5.6 -Remains oliguric--> 550 out in the last 24 hours -Hopeful for renal recovery -Nephrology following -Dialysis per nephrology -Per general surgery documentation-tunneled dialysis catheter to be placed on Wednesday morning Dysphagia -Speech is following -modified barium swallow from 08/13/2022 did poorly speech therapy does not anticipate fast improvement -PEG placement done on 08/15/2022 -Start tube feed today -Transition medications as able to G-tube Acute anemia -Hemoglobin with significant drop to 6.6 on the a.m. of 08/10/2022 and required 1 unit of blood--> repeat improved to 7.5--> hemoglobin down again on the a.m. of 08/11/2022 at 6.9--> 2 units packed red blood cells given--> hemoglobin stable in the last 24 hours at 11.1 with no transfusion needed since 08/11/2022 -9.3 admission -Start lansoprazole 30 twice daily via her PEG -EGD done on 08/14/2022 for diagnosis of GI bleeding as well as PEG placement--> Per discussion with gastroenterology it appears that she had a dehiscence of her previous gastric bypass surgery -Report showed normal esophagus with large hiatal hernia as well as oozing gastric ulcers with pigmented material treated with heater probe and gastritis -Patient does not remember how old this surgical procedure was and I am not able to find any records in [facility] that address this--> we are in the process of trying to find out from her when this was performed Thrombocytopenia -Platelet count slowly improving and up to 147,000 -Today is the first day her platelet count has not trended down -Stopped subcu heparin on 08/10/2022 and avoid anticoagulation -HIT antibody is pending--> if positive will place heparin as an allergy--> if not in hemoglobin stable restart subcu heparin -Retrospectively the drop in her hemoglobin and platelet count were both at the same time this may be related to consumption due to bleeding in her gut after review of her EGD -Repeat CBC in a.m. Toxic/metabolic encephalopathy -Resolved -CT of the brain shows no acute findings -Old vascular disease noted DM-2 -Fasting blood sugar with only sliding scale 153 and overall blood sugars look fairly well controlled at this point -Continue sliding scale insulin for now -May need to reinitiate Lantus once tube feed initiated -Check a.m. fasting as tube feeds should be started today -Accu-Cheks as ordered -Need to discontinue metformin at discharge as this may be the etiology of the above issues Seizure disorder -Discontinue IV Keppra and start liquid Keppra enterally via PEG Chronic headaches -Restart Lamictal via her PEG -Topamax is not crushable therefore we will have to hold until she is able to tolerate p.o. intake Vitamin D deficiency -Restart vitamin D supplementation Hypertension -Off pressors -Patient now normotensive -Continue to hold amlodipine/HCTZ/ANUM inhibitor -Monitor for to the ability to restart -As needed hydralazine GERD -Protonix discontinued -Lansoprazole 30 mg via PEG twice daily started Pancreatic insufficiency -Restart Creon via PEG Depression/insomnia -Hold Effexor--> unable to crush -Hold trazodone History of gastric bypass -Unclear when this was performed -Patient is unable to remember -We are waiting on input from DVT prophylaxis -SCDs -Heparin discontinued secondary to thrombocytopenia -HIT antibody remains pending--> if negative will restart as long as platelet counts are above 100,000 CODE STATUS -Full code Charges/Coding Visit Charges Inpatient E&M: 70205 Subs Hosp L3
[2022-08-15 13:55] LABS: Bedside Glucose 146 mg/dL (74-106)
--- NOTE | 2022-08-15 14:52 | PCM.PN.REN ---
Subjective Subjective Alert, somewhat sleepy. Not much urine output Objective Data Objective Data Vital Signs: Vital Signs Temp Pulse Resp BP Pulse Ox O2 Del Method O2 Flow Rate 97.7 F L 88 20 H 107/39 L 95 Nasal Cannula 2 08/15/22 13:35 08/15/22 13:35 08/15/22 13:35 08/15/22 13:35 08/15/22 13:35 08/15/22 13:35 08/15/22 13:35 FiO2 45 08/13/22 02:00 Oxygen Flow Rate (L/min) 2 Oxygen Delivery Method Nasal Cannula Weight: 85.4 kg Body Mass Index (BMI) 34.6 Intake & Output: Intake and Output for Last 24 Hours 08/13/22 08/14/22 08/15/22 23:59 23:59 23:59 Intake Total 720 / 720 920 / 920 210 / 210 Output Total 80 / 130 550 / 550 100 / 100 Balance 640 / 590 370 / 370 110 / 110 Lab / Micro Data Result Diagrams: 08/15/22 06:51 08/15/22 06:51 Labs: Laboratory Results - last 24 hr 08/14/22 17:50: POC Glucose 147 H 08/15/22 00:22: POC Glucose 163 H 08/15/22 06:07: POC Glucose 158 H 08/15/22 06:51: Sodium 139, Potassium 3.8, Chloride 97 L, Carbon Dioxide 19.0 L, Anion Gap 23 H, BUN 39 H, Creatinine 3.76 H, Estim Creat Clear Calc 12.31, Est GFR (MDRD) Af Amer 16 L, Est GFR (MDRD) Non-Af 13 L, BUN/Creatinine Ratio 10.4, Glucose 172 H, Calcium 7.8 L 08/15/22 06:51: WBC 9.6, RBC 3.89 L, Hgb 11.1 L, Hct 34.1 L, MCV 87.7, MCH 28.5, MCHC 32.6, RDW Std Deviation 51.1 H, RDW Coeff of Jacqueline 15.9 H, Plt Count 147 L, MPV 10.9, Neut % (Auto) Not Reportable, Absolute Neuts (auto) 6.0, Absolute Lymphs (auto) 2.20, Total Counted 100, Neutrophils % (Manual) 59, Band Neutrophils % 3, Lymphocytes % (Manual) 23, Monocytes % (Manual) 12 H, Eosinophils % (Manual) 2, Myelocytes % 1 H, Diff Path Review May foll, Platelet Estimate ADEQUATE, RBC Morphology NORM C+C 08/15/22 13:35: POC Glucose 146 H Micro: Microbiology 08/07/22 16:45 Blood Culture (Wb) - Right Wrist Blood Culture - Final No growth in 5 days. 08/07/22 16:50 Blood Culture (Wb) - Left Foot Blood Culture - Final No growth in 5 days. 08/11/22 01:10 Stool C. difficile DNA Amplification - Final 08/10/22 12:00 Stool Stool Occult Blood (ISAIAS) - Final Occult Blood Positive 08/07/22 15:30 Urine, Clean Catch Urine Culture - Final Pseudomonas fluorescens 08/07/22 15:33 Sputum, Tracheal Aspirate Gram Stain - Final 08/07/22 15:33 Sputum, Tracheal Aspirate Respiratory Culture - Final Mixed normal respiratory ny. No Streptococcus pneumoniae, beta-hemolytic Streptococcus or Staphylococcus aureus isolated. Rhythm Strip Rhythm Strip: Sinus Tach Rate: 120 Physical Exam Narrative Alert awake no obvious distress no pallor no icterus no JVD s1s2 no murmurs lungs clear abdomen soft no organomegaly +++ edema no cyanosis hameed + Assessment & Plan Assessment/Plan (1) Acute renal failure: PLAN: Baseline creatinine is around 1.5. Came in with acute renal failure, acidosis. Started on renal replacement therapy. Seen on dialysis today. Currently has a left IJ nontunneled dialysis catheter. Blood flows have been poor. Still does not have much urine output. Tunneled dialysis catheter hopefully on Wednesday. Still has significant edema, somewhat better than before. Seen on dialysis today. We will be able to remove about 3 to 4 L today. Blood pressure is around 90-100 systolic. Still has a Hameed catheter, not much urine output. (2) Chronic kidney disease, stage 3b:
[2022-08-15] MEDS: Cholecalciferol (VIT D3) 25 MCG TABLET (1,000 UNITS) 50 MCG GT (16:54)
[2022-08-15] MEDS: lamoTRIgine 25 MG Tablet GT (16:55)
[2022-08-15] MEDS: NEPRO TUBE FEED 1,000 ML 20 ML GT (17:46)
[2022-08-15 18:21] LABS: Bedside Glucose 160 mg/dL (74-106)
--- NOTE | 2022-08-15 19:11 | CM.ED ---
Addendum entered by Ann Hanley 08/15/22 19:45: JANEL made [facility] referral to [facility] per patient's request. Ann CHA Original Note: JANEL Note [facility] was advised that patient needs SNF so JANEL asked patient her choices regarding SNF. [facility]'s first choice is [facility] and 2nd choice is [facility]. Ann CHA
[2022-08-15] MEDS: Atorvastatin Calcium 20 MG Tablet GT (21:21)
[2022-08-15] MEDS: levETIRAcetam Oral Solution 500 MG/5 ML GT (21:21)
[2022-08-15] MEDS: Lansoprazole 15 MG Capsule.DR 30 MG GT (21:21)
[2022-08-16] VITALS (9 sets, daily range): BP systolic 100–115; BP diastolic 42–59; PULSE 88–98; RESP 16–20; TEMP 36.4–38.1; O2SAT 92–100; BMI 33.0
[2022-08-16] MEDS: Insulin Lispro 100 UNIT/ML INSULN.PEN SC ×4 (00:06→17:54)
[2022-08-16 00:30] LABS: Bedside Glucose 188 mg/dL (74-106)
[2022-08-16 06:36] LABS: Hematocrit 30.7 % (37-47); Hemoglobin 10.3 g/dL (12.0-15.0); Mean Corp Hgb Conc 33.6 g/dL (32-36); Mean Corpuscular Hgb 29.4 pg (27.0-32.0); Mean Corpuscular Volume 87.7 fL (81-99); Mean Platelet Vol. 10.6 fl (6.2-12.0); POSITIVE COUNT YES; POSITIVE DIFFERENTIAL YES; POSITIVE MORPHOLOGY YES; Platelet Count 126 K/mm3 (150-450); RBC Distribution Width CV 15.7 % (11.6-14.6); RBC Distribution Width SD 49.9 fl (35.1-43.9); White Blood Count 10.4 K/mm3 (4.4-11.0)
[2022-08-16 06:46] LABS: Differential Indicated MANUAL DIFF
[2022-08-16 07:05] LABS: Bedside Glucose 212 mg/dL (74-106)
[2022-08-16 07:05] LABS: BUN 39 mg/dL (7-18); BUN/Creat Ratio 9.9 RATIO (10-20); Calcium,Total 7.9 mg/dL (8.5-10.1); Chloride 97 mmol/L (98-107); Creatinine, Serum 3.95 mg/dL (0.55-1.02); EST Glomerular Filtration Rate 12 mL/min (>60); Est Glom Filt Rate - Afr Amer 15 mL/min (>60); Estimated Creatinine Clearance 11.71 ml/min; Glucose 213 mg/dL (74-106); Potassium 3.6 mmol/L (3.5-5.1); Sodium Level 136 mmol/L (136-145)
[2022-08-16 07:06] LABS: Anion Gap 24 (5-15)
[2022-08-16 07:15] LABS: Eosinophil 1 % (0-5); Lymphocyte 15 % (19-41); Metamyelocyte 2 % (0-1); Monocyte 12 % (0-10); Myelocyte 2 % (0-0); Neutrophil-Band 5 % (0-5); Neutrophil-Segmented 63 % (47-70); Total Cells Counted 100 (MANUAL DIFF)
[2022-08-16 07:16] LABS: Absolute Lymphocyte Count 1.56 X10^3/uL (0.83-4.51); Absolute Neutrophil Count 7.1 X10^3/uL (2.0-7.7); Lymphocyte # 1.56 X10^3/ul (0.83-4.51); Neutrophil # 7.07 X10^3/uL (2.7-7.7); Platelet Estimate SLT DEC (ADEQ); Red Cell Morphology NORM C+C NORMAL (NORM C&C)
[2022-08-16 08:31] LABS: Allen Test Positive; Base Excess -6 mmol/L (-2 to +2); Bicarbonate 17.7 mmol/L (22-26); Blood Gas Specimen Type ART; O2 Delivery Device Cannula; PO2 67 mmHG (75-100); SITE L Radial; SO2 95 % (95-99); Total Carbon Dioxide 18 mmol/L; pCO2 24.8 mmHg (35-45); pH 7.46 (7.35-7.45)
[2022-08-16 08:40] LABS: Triglycerides 101 mg/dL
[2022-08-16 08:46] LABS: CPK Total, Creatine Kinase 38 U/L (26-192)
[2022-08-16 08:59] LABS: Lactic Acid 1.7 mmol/L (0.4-1.9)
[2022-08-16] MEDS: Menthol/Lanolin/Calamine/Znox 113 GM Tube 1 APPLIC TOPICAL ×2 (10:16→20:58)
[2022-08-16] MEDS: lamoTRIgine 25 MG Tablet GT (10:17)
[2022-08-16] MEDS: Lansoprazole 15 MG Capsule.DR 30 MG GT ×2 (10:17→20:57)
[2022-08-16] MEDS: Cholecalciferol (VIT D3) 25 MCG TABLET (1,000 UNITS) 50 MCG GT (10:20)
[2022-08-16] MEDS: Cyanocobalamin 500 MCG Tablet 1000 MCG GT (10:20)
[2022-08-16] MEDS: levETIRAcetam Oral Solution 500 MG/5 ML GT ×2 (10:21→20:57)
--- NOTE | 2022-08-16 12:07 | PN_ITS ---
Subjective Subjective Patient underwent PEG tube placement yesterday. She tolerated procedure yesterday without any problems. Today she is on dialysis and is lethargic. I was alerted that her acid-base balance is off and she is becoming more acidotic. She is being seen by nephrology at this time. Objective Data Objective Data Vital Signs: Vital Signs Temp Pulse Resp BP Pulse Ox O2 Del Method O2 Flow Rate 99.6 F H 98 18 106/53 L 100 Nasal Cannula 2 08/16/22 10:40 08/16/22 10:40 08/16/22 10:40 08/16/22 10:40 08/16/22 10:40 08/16/22 10:43 08/16/22 11:49 FiO2 45 08/13/22 02:00 Oxygen Flow Rate (L/min) 2 Oxygen Delivery Method Nasal Cannula Weight: 188 lb 4.396 oz Body Mass Index (BMI) 34.6 Intake & Output: Intake and Output for Last 24 Hours 08/14/22 08/15/22 08/16/22 23:59 23:59 23:59 Intake Total 920 / 920 360 / 360 307 / 307 Output Total 550 / 550 2600 / 2600 0 / 0 Balance 370 / 370 -2240 / -2240 307 / 307 Lab / Micro Data Result Diagrams: 08/16/22 06:06 08/16/22 06:06 Labs: Laboratory Results - last 24 hr 08/15/22 13:35: POC Glucose 146 H 08/15/22 17:48: POC Glucose 160 H 08/16/22 00:05: POC Glucose 188 H 08/16/22 03:50: Corrected WBC INFUSION PHARMACIST, Immature Gran % (Auto) INFUSION PHARMACIST, Lymph % (Auto) INFUSION PHARMACIST, Banner % (Auto) INFUSION PHARMACIST, Eos % (Auto) INFUSION PHARMACIST, Baso % (Auto) INFUSION PHARMACIST, Basophils % (Manual) INFUSION PHARMACIST, Promyelocytes % INFUSION PHARMACIST, Blast Cells % INFUSION PHARMACIST, Plasma Cell % (Manual) INFUSION PHARMACIST, Other Cells % INFUSION PHARMACIST, Nucleated RBC % INFUSION PHARMACIST, Nucleated RBCs/100 WBC INFUSION PHARMACIST, Differential Comment INFUSION PHARMACIST, Hypersegmented Neuts INFUSION PHARMACIST, Atypical Lymphocytes INFUSION PHARMACIST, Reactive Lymphocytes INFUSION PHARMACIST, Smudge Cells INFUSION PHARMACIST, Toxic Granulation INFUSION PHARMACIST, Toxic Vacuolation INFUSION PHARMACIST, Dohle Bodies INFUSION PHARMACIST, Renetta Rods INFUSION PHARMACIST, Plt Morphology Comment INFUSION PHARMACIST, RBC Morphology INFUSION PHARMACIST, Polychromasia INFUSION PHARMACIST, Hypochromasia INFUSION PHARMACIST, Poikilocytosis INFUSION PHARMACIST, Basophilic Stippling INFUSION PHARMACIST, Anisocytosis INFUSION PHARMACIST, Microcytosis INFUSION PHARMACIST, Macrocytosis INFUSION PHARMACIST, Spherocytes INFUSION PHARMACIST, Sickle Cells INFUSION PHARMACIST, Target Cells INFUSION PHARMACIST, Tear Drop Cells INFUSION PHARMACIST, Ovalocytes INFUSION PHARMACIST, Stomatocytes INFUSION PHARMACIST, Jeter-Goldston Bodies INFUSION PHARMACIST, Beth Cells INFUSION PHARMACIST, Bite Cells INFUSION PHARMACIST, Crenated Cell INFUSION PHARMACIST, Acanthocytes (Spur) INFUSION PHARMACIST, Rouleaux INFUSION PHARMACIST, Schistocytes INFUSION PHARMACIST 08/16/22 06:06: Sodium 136, Potassium 3.6, Chloride 97 L, Carbon Dioxide 15.0 L, Anion Gap 24 H, BUN 39 H, Creatinine 3.95 H, Estim Creat Clear Calc 11.71, Est GFR (MDRD) Af Amer 15 L, Est GFR (MDRD) Non-Af 12 L, BUN/Creatinine Ratio 9.9 L, Glucose 213 H, Calcium 7.9 L 08/16/22 06:06: WBC 10.4, RBC 3.50 L, Hgb 10.3 L, Hct 30.7 L, MCV 87.7, MCH 29.4, MCHC 33.6, RDW Std Deviation 49.9 H, RDW Coeff of Jacqueline 15.7 H, Plt Count 126 L, MPV 10.6, Neut % (Auto) Not Reportable, Absolute Neuts (auto) 7.1, Absolute Lymphs (auto) 1.56, Total Counted 100, Neutrophils % (Manual) 63, Band Neutrophils % 5, Lymphocytes % (Manual) 15 L, Monocytes % (Manual) 12 H, Eosinophils % (Manual) 1, Metamyelocytes % 2 H, Myelocytes % 2 H, Diff Path Review May foll, Platelet Estimate SLT DEC, RBC Morphology NORM C+C 08/16/22 06:06: Triglycerides 101 08/16/22 06:06: Total Creatine Kinase 38 08/16/22 06:37: POC Glucose 212 H 08/16/22 08:23: Lactic Acid 1.7 Micro: Microbiology 08/07/22 16:45 Blood Culture (Wb) - Right Wrist Blood Culture - Final No growth in 5 days. 08/07/22 16:50 Blood Culture (Wb) - Left Foot Blood Culture - Final No growth in 5 days. 08/11/22 01:10 Stool C. difficile DNA Amplification - Final 08/10/22 12:00 Stool Stool Occult Blood (ISAIAS) - Final Occult Blood Positive 08/07/22 15:30 Urine, Clean Catch Urine Culture - Final Pseudomonas fluorescens 08/07/22 15:33 Sputum, Tracheal Aspirate Gram Stain - Final 08/07/22 15:33 Sputum, Tracheal Aspirate Respiratory Culture - Final Mixed normal respiratory ny. No Streptococcus pneumoniae, beta-hemolytic Streptococcus or Staphylococcus aureus isolated. ABG Data ABG results: ABG 08/16/22 08:24 Specimen Type ART Sample Site L Radial pH 7.46 H Bicarbonate Actual 17.7 L Total CO2 18 Base Excess -6 L O2 Saturation 95 ABG pCO2 24.8 L ABG pO2 67 L Scottie Test Positive O2 Delivery Device Cannula Liter Flow 2.0 Rhythm Strip Rhythm Strip: Sinus Tach Rate: 120 Physical Exam Narrative Sleepy but arousable and oriented to person and place Const alert, no apparent distress and well nourished HEENT head/scalp atraumatic and moist oral mucous membranes Head and Scalp: normocephalic Resp normal respiratory effort, no retractions, no use of accessory muscles and clear to auscultation bilaterally Auscultation: Negative for crackles, rhonchi or wheezes Cardio regular rate, regular rhythm, S1 normal heart sound, S2 normal heart sound, no murmurs, no rub, no gallops, no clicks and no JVD GI normal to inspection, nondistended, normoactive bowel sounds, soft to palpation and non-tender Extremity no clubbing, cyanosis or edema Extremity Narrative: 2+ pedal pulses, 3+ pitting edema bilateral lower and upper extremities, no cyanosis or clubbing Neuro moves all extremities and no focal motor deficits Neuro Narrative: Significant generalized weakness, vocal quality has improved again today from yesterday Speech: Negative for speech normal Motor Exam: Negative for strength 5/5 throughout Assessment & Plan Assessment/Plan (1) Anemia: PLAN: Acute blood loss anemia with thrombocytopenia 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 Anemia was determined to be blood loss anemia. She does not seem to be bleeding at this time. Recommend Protonix 40 mg IV every 12 hours. (2) Thrombocytopenia: PLAN: Thought to be secondary to dilution and acute illness.. A HIT panel is pending (3) Dysphagia: PLAN: Status post PEG tube placement. Hopefully if she gets her strength back we will be able to remove the PEG in the future. She is making very good progress. She does have severe anasarca secondary to protein, nutrition, acute illness and other factors. (4) Metabolic acidosis: PLAN: I talk with anesthesiology and explained that there is a possibility that she could be having a drug reaction causing significant acidosis. They did not think that the administration of propofol contributing to her recurrent acidosis. I am not sure why she developed worsening acidosis at this time. Charges/Coding Visit Charges Inpatient E&M: 62184 Subs Hosp L3
--- NOTE | 2022-08-16 12:23 | PN.HOSP_ITS ---
Reason for Visit Reason for Visit: Unresponsiveness Subjective Subjective No issues overnight. Patient is tolerating tube feed. Patient states she did get to talk to her . Still having some waxing and waning mental status with regards to confusion. Received dialysis yesterday without significant fluid removal as blood pressures were somewhat tenuous at times. Patient has no complaints today. I reviewed the plan for tomorrow with tunneled dialysis catheter placement. Subclavian central venous catheter was removed. Objective Data Objective Data Vital Signs: Vital Signs Temp Pulse Resp BP Pulse Ox O2 Del Method O2 Flow Rate 99.0 F 88 18 110/52 L 98 Nasal Cannula 2 08/16/22 12:21 08/16/22 12:21 08/16/22 12:21 08/16/22 12:21 08/16/22 12:21 08/16/22 12:21 08/16/22 12:21 FiO2 45 08/13/22 02:00 Oxygen Flow Rate (L/min) 2 Oxygen Delivery Method Nasal Cannula Weight: 85.4 kg Body Mass Index (BMI) 34.6 Intake & Output: Intake and Output for Last 24 Hours 08/14/22 08/15/22 08/16/22 23:59 23:59 23:59 Intake Total 920 / 920 360 / 360 547 / 547 Output Total 550 / 550 2600 / 2600 20 / 20 Balance 370 / 370 -2240 / -2240 527 / 527 Lab / Micro Data Result Diagrams: 08/16/22 06:06 08/16/22 06:06 Labs: Laboratory Results - last 24 hr 08/15/22 13:35: POC Glucose 146 H 08/15/22 17:48: POC Glucose 160 H 08/16/22 00:05: POC Glucose 188 H 08/16/22 03:50: Corrected WBC PROTEIN SPECIALIST, Immature Gran % (Auto) PROTEIN SPECIALIST, Lymph % (Auto) PROTEIN SPECIALIST, Lamar % (Auto) PROTEIN SPECIALIST, Eos % (Auto) PROTEIN SPECIALIST, Baso % (Auto) PROTEIN SPECIALIST, Basophils % (Manual) PROTEIN SPECIALIST, Promyelocytes % PROTEIN SPECIALIST, Blast Cells % PROTEIN SPECIALIST, Plasma Cell % (Manual) PROTEIN SPECIALIST, Other Cells % PROTEIN SPECIALIST, Nucleated RBC % PROTEIN SPECIALIST, Nucleated RBCs/100 WBC PROTEIN SPECIALIST, Differential Comment PROTEIN SPECIALIST, Hypersegmented Neuts PROTEIN SPECIALIST, Atypical Lymphocytes PROTEIN SPECIALIST, Reactive Lymphocytes PROTEIN SPECIALIST, Smudge Cells PROTEIN SPECIALIST, Toxic Granulation PROTEIN SPECIALIST, Toxic Vacuolation PROTEIN SPECIALIST, Dohle Bodies PROTEIN SPECIALIST, Renetta Rods PROTEIN SPECIALIST, Plt Morphology Comment PROTEIN SPECIALIST, RBC Morphology PROTEIN SPECIALIST, Polychromasia PROTEIN SPECIALIST, Hypochromasia PROTEIN SPECIALIST, Poikilocytosis PROTEIN SPECIALIST, Basophilic Stippling PROTEIN SPECIALIST, Anisocytosis PROTEIN SPECIALIST, Microcytosis PROTEIN SPECIALIST, Macrocytosis PROTEIN SPECIALIST, Spherocytes PROTEIN SPECIALIST, Sickle Cells PROTEIN SPECIALIST, Target Cells PROTEIN SPECIALIST, Tear Drop Cells PROTEIN SPECIALIST, Ovalocytes PROTEIN SPECIALIST, Stomatocytes PROTEIN SPECIALIST, Jeter-B And E Bodies PROTEIN SPECIALIST, Beth Cells PROTEIN SPECIALIST, Bite Cells PROTEIN SPECIALIST, Crenated Cell PROTEIN SPECIALIST, Acanthocytes (Spur) PROTEIN SPECIALIST, Rouleaux PROTEIN SPECIALIST, Schistocytes PROTEIN SPECIALIST 08/16/22 06:06: Sodium 136, Potassium 3.6, Chloride 97 L, Carbon Dioxide 15.0 L, Anion Gap 24 H, BUN 39 H, Creatinine 3.95 H, Estim Creat Clear Calc 11.71, Est GFR (MDRD) Af Amer 15 L, Est GFR (MDRD) Non-Af 12 L, BUN/Creatinine Ratio 9.9 L, Glucose 213 H, Calcium 7.9 L 08/16/22 06:06: WBC 10.4, RBC 3.50 L, Hgb 10.3 L, Hct 30.7 L, MCV 87.7, MCH 29.4, MCHC 33.6, RDW Std Deviation 49.9 H, RDW Coeff of Jacqueline 15.7 H, Plt Count 126 L, MPV 10.6, Neut % (Auto) Not Reportable, Absolute Neuts (auto) 7.1, Absolute Lymphs (auto) 1.56, Total Counted 100, Neutrophils % (Manual) 63, Band Neutrophils % 5, Lymphocytes % (Manual) 15 L, Monocytes % (Manual) 12 H, Eosinophils % (Manual) 1, Metamyelocytes % 2 H, Myelocytes % 2 H, Diff Path R mary velásquez, Platelet Estimate SLT DEC, RBC Morphology NORM C+C 08/16/22 06:06: Triglycerides 101 08/16/22 06:06: Total Creatine Kinase 38 08/16/22 06:37: POC Glucose 212 H 08/16/22 08:23: Lactic Acid 1.7 Micro: Microbiology 08/07/22 16:45 Blood Culture (Wb) - Right Wrist Blood Culture - Final No growth in 5 days. 08/07/22 16:50 Blood Culture (Wb) - Left Foot Blood Culture - Final No growth in 5 days. 08/11/22 01:10 Stool C. difficile DNA Amplification - Final 08/10/22 12:00 Stool Stool Occult Blood (ISAIAS) - Final Occult Blood Positive 08/07/22 15:30 Urine, Clean Catch Urine Culture - Final Pseudomonas fluorescens 08/07/22 15:33 Sputum, Tracheal Aspirate Gram Stain - Final 08/07/22 15:33 Sputum, Tracheal Aspirate Respiratory Culture - Final Mixed normal respiratory ny. No Streptococcus pneumoniae, beta-hemolytic Streptococcus or Staphylococcus aureus isolated. ABG Data ABG results: ABG 08/16/22 08:24 Specimen Type ART Sample Site L Radial pH 7.46 H Bicarbonate Actual 17.7 L Total CO2 18 Base Excess -6 L O2 Saturation 95 ABG pCO2 24.8 L ABG pO2 67 L Scottie Test Positive O2 Delivery Device Cannula Liter Flow 2.0 Rhythm Strip Rhythm Strip: Sinus Tach Rate: 120 Physical Exam Narrative Const alert, no apparent distress and well nourished Constitutional Narrative: Middle-aged white female, on 2 L nasal cannula, sitting up in bed, appears comfortable, nontoxic, oriented to self and place, told me it was August and unable to come up with the date today HEENT head/scalp atraumatic and moist oral mucous membranes HEENT Narrative: Mallampati 2, no thrush Head and Scalp: normocephalic Eyes PERRL, EOMs intact bilaterally and conjunctivae normal Eyes Narrative: Mildly pale conjunctiva, no scleral icterus Neck no lymphadenopathy and supple Neck Narrative: Left IJ dialysis catheter in place-clean and dry Resp normal respiratory effort, no retractions, no use of accessory muscles and clear to auscultation bilaterally Auscultation: Negative for crackles, rhonchi or wheezes Cardio regular rate, regular rhythm, S1 normal heart sound, S2 normal heart sound, no murmurs, no rub, no gallops, no clicks and no JVD GI normal to inspection, nondistended, normoactive bowel sounds, soft to palpation and non-tender GI Narrative: PEG in place, tolerating tube feed Extremity Extremity Narrative: 2+ pedal pulses, 2+ pitting edema bilateral lower and upper extremities, no cyanosis or clubbing Skin no rashes or lesions noted, no wounds, No skin turgor normal, no jaundice, no petechiae and no mottling Skin Narrative: Swollen as noted below with abnormal turgor due to edema Neuro CN's II-XII intact bilaterally, moves all extremities and no focal motor deficits Neuro Narrative: Voice quality continues to improve, mild confusion with regards to time orientation today, speech is slow and deliberate but intelligible and appropriate Speech: Negative for speech normal Motor Exam: Negative for strength 5/5 throughout Psych Psych Narrative: Affect and mood appropriate for situation Assessment & Plan Assessment/Plan (1) Acute hypotension: (2) Shock: (3) Metabolic acidosis: (4) Toxic metabolic encephalopathy: (5) Acute respiratory failure with hypoxia and hypercapnia: (6) Hypothermia: (7) Vitamin D deficiency: (8) Lactic acidosis: (9) Acute renal failure: (10) Bradycardia: (11) Acute respiratory failure with hypoxia: (12) Hypomagnesemia: (13) Anemia: (14) Thrombocytopenia: (15) Hypokalemia: PLAN: Plan Shock -Etiology is still not determined -Specialty labs done on admission are still pending as noted below -Resolved -Metformin level, methanol level, and cyanide level are all still pending -Ethylene glycol was negative on admission Acute hypoxic respiratory failure -Initial ABG demonstrated pH of less than 6.5 with a PCO2 of 26.4 and a PO2 of 282 -Intubated on presentation 08/07/2022 -Extubated 08/11/2022 -Has been weaned to room air thus acute hypoxic respiratory failure is resolved -Continue aggressive incentive spirometry -Pep therapy Anion gap metabolic acidosis -Anion gap is up again with a dropping bicarb -Did obtain an ABG based on acid-base interpretation she has a primary metabolic acidosis with an increased gap and superimposed respiratory alkalosis with metabolic acidosis having an increased gap--> appears to be triple acid-base disorder -Started to happen yesterday did not clear with dialysis -Lactic acid is normal at 1.7 -Triglycerides are normal -CPK normal at 38 -Acetone is pending -Repeat BMP at 1300 -? If this is related to propofol is the only change prior to this occurrence while she got propofol on the , she also would have gotten propofol with her colonoscopy prior to admission and I am wondering if propofol precipitated both events -Have at this time place propofol as an allergy -Case was discussed with nephrology MARY on CKD stage IIIb -Baseline serum creatinine appears to be between 1.5 and 1.7 -Serum creatinine at presentation was 5.6 -Remains oliguric--> 100 cc out in the last 24 hours -Hopeful for renal recovery but no signs of recovery as of yet -Nephrology following--> flow off that catheter has been tenuous and therefore per discussion with Dr. Collier dialysis yesterday may not have been super effective -Dialysis per nephrology -Per general surgery documentation-tunneled dialysis catheter to be placed on Wednesday morning Dysphagia -Speech is following -modified barium swallow from 08/13/2022 did poorly speech therapy does not anticipate fast improvement -PEG placement done on 08/15/2022 -Continue tube feed-patient tolerating well -Continue meds via PEG Acute anemia -Hemoglobin with significant drop to 6.6 on the a.m. of 08/10/2022 and required 1 unit of blood--> repeat improved to 7.5--> hemoglobin down again on the a.m. of 08/11/2022 at 6.9--> 2 units packed red blood cells given--> hemoglobin stable in the last 24 hours at 11.1 with no transfusion needed since 08/11/2022 -9.3 admission -Start lansoprazole 30 twice daily via her PEG -EGD done on 08/14/2022 for diagnosis of GI bleeding as well as PEG placement--> Per discussion with gastroenterology it appears that she had a dehiscence of her previous gastric bypass surgery -Report showed normal esophagus with large hiatal hernia as well as oozing gastric ulcers with pigmented material treated with heater probe and gastritis -Patient does not remember how old this surgical procedure was and I am not a ble to find any records in [facility] that address this--> we are in the process of trying to find out from her when this was performed -Hemoglobin down about a gram in the last 24 hours--> no signs of obvious bleeding--> may be volume related is not much fluid was able to be pulled with dialysis yesterday--> repeat CBC in a.m. Thrombocytopenia -Platelet count down a little bit in the last 24 hours -Stopped subcu heparin on 08/10/2022 and avoid anticoagulation -HIT antibody is still pending--> if positive will place heparin as an allergy--> if not in hemoglobin stable restart subcu heparin -Retrospectively the drop in her hemoglobin and platelet count were both at the same time this may be related to consumption due to bleeding in her gut after review of her EGD -Repeat CBC in a.m. Toxic/metabolic encephalopathy -Resolving--> mental status seems to fluctuate however overall much improved -CT of the brain shows no acute findings -Old vascular disease noted DM-2 -Blood sugars have trended up since initiation of tube feed -Add Lantus 10 units -Continue sliding scale -Accu-Cheks as ordered Seizure disorder -Continue liquid Keppra via PEG Chronic headaches -Continue Lamictal via her PEG -Topamax is not crushable therefore we will have to hold until she is able to tolerate p.o. intake Vitamin D deficiency -Continue vitamin D supplementation Hypertension -Blood pressure overall normotensive however low side of normal for the most part -Continue to hold amlodipine/HCTZ/ANUM inhibitor -Monitor for to the ability to restart -As needed hydralazine GERD -Lansoprazole 30 mg via PEG twice daily started Pancreatic insufficiency -Continue Creon via PEG Depression/insomnia -Hold Effexor--> unable to crush -Hold trazodone History of gastric bypass -Unclear when this was performed -Patient is unable to remember -We are waiting on input from DVT prophylaxis -SCDs -Heparin discontinued secondary to thrombocytopenia -HIT antibody still remains pending--> if negative will restart as long as platelet counts are above 100,000 CODE STATUS -Full code Charges/Coding Visit Charges Inpatient E&M: 39161 Subs Hosp L3
[2022-08-16 12:31] LABS: Bedside Glucose 252 mg/dL (74-106)
--- NOTE | 2022-08-16 13:59 | PCM.PN.REN ---
Subjective Subjective No new complaints Objective Data Objective Data Vital Signs: Vital Signs Temp Pulse Resp BP Pulse Ox O2 Del Method O2 Flow Rate 99.0 F 88 18 110/52 L 98 Nasal Cannula 2 08/16/22 12:21 08/16/22 12:21 08/16/22 12:21 08/16/22 12:21 08/16/22 12:21 08/16/22 12:21 08/16/22 12:21 FiO2 45 08/13/22 02:00 Oxygen Flow Rate (L/min) 2 Oxygen Delivery Method Nasal Cannula Weight: 85.4 kg Body Mass Index (BMI) 34.6 Intake & Output: Intake and Output for Last 24 Hours 08/14/22 08/15/22 08/16/22 23:59 23:59 23:59 Intake Total 920 / 920 360 / 360 547 / 547 Output Total 550 / 550 2600 / 2600 20 / 20 Balance 370 / 370 -2240 / -2240 527 / 527 Lab / Micro Data Result Diagrams: 08/16/22 06:06 08/16/22 06:06 Labs: Laboratory Results - last 24 hr 08/15/22 17:48: POC Glucose 160 H 08/16/22 00:05: POC Glucose 188 H 08/16/22 03:50: Corrected WBC TERRAZZO GRINDER, Immature Gran % (Auto) TERRAZZO GRINDER, Lymph % (Auto) TERRAZZO GRINDER, Evangeline % (Auto) TERRAZZO GRINDER, Eos % (Auto) TERRAZZO GRINDER, Baso % (Auto) TERRAZZO GRINDER, Basophils % (Manual) TERRAZZO GRINDER, Promyelocytes % TERRAZZO GRINDER, Blast Cells % TERRAZZO GRINDER, Plasma Cell % (Manual) TERRAZZO GRINDER, Other Cells % TERRAZZO GRINDER, Nucleated RBC % TERRAZZO GRINDER, Nucleated RBCs/100 WBC TERRAZZO GRINDER, Differential Comment TERRAZZO GRINDER, Hypersegmented Neuts TERRAZZO GRINDER, Atypical Lymphocytes TERRAZZO GRINDER, Reactive Lymphocytes TERRAZZO GRINDER, Smudge Cells TERRAZZO GRINDER, Toxic Granulation TERRAZZO GRINDER, Toxic Vacuolation TERRAZZO GRINDER, Dohle Bodies TERRAZZO GRINDER, Renetta Rods TERRAZZO GRINDER, Plt Morphology Comment TERRAZZO GRINDER, RBC Morphology TERRAZZO GRINDER, Polychromasia TERRAZZO GRINDER, Hypochromasia TERRAZZO GRINDER, Poikilocytosis TERRAZZO GRINDER, Basophilic Stippling TERRAZZO GRINDER, Anisocytosis TERRAZZO GRINDER, Microcytosis TERRAZZO GRINDER, Macrocytosis TERRAZZO GRINDER, Spherocytes TERRAZZO GRINDER, Sickle Cells TERRAZZO GRINDER, Target Cells TERRAZZO GRINDER, Tear Drop Cells TERRAZZO GRINDER, Ovalocytes TERRAZZO GRINDER, Stomatocytes TERRAZZO GRINDER, Jeter-Sturtevant Bodies TERRAZZO GRINDER, Beth Cells TERRAZZO GRINDER, Bite Cells TERRAZZO GRINDER, Crenated Cell TERRAZZO GRINDER, Acanthocytes (Spur) TERRAZZO GRINDER, Rouleaux TERRAZZO GRINDER, Schistocytes TERRAZZO GRINDER 08/16/22 06:06: Sodium 136, Potassium 3.6, Chloride 97 L, Carbon Dioxide 15.0 L, Anion Gap 24 H, BUN 39 H, Creatinine 3.95 H, Estim Creat Clear Calc 11.71, Est GFR (MDRD) Af Amer 15 L, Est GFR (MDRD) Non-Af 12 L, BUN/Creatinine Ratio 9.9 L, Glucose 213 H, Calcium 7.9 L 08/16/22 06:06: WBC 10.4, RBC 3.50 L, Hgb 10.3 L, Hct 30.7 L, MCV 87.7, MCH 29.4, MCHC 33.6, RDW Std Deviation 49.9 H, RDW Coeff of Jacqueline 15.7 H, Plt Count 126 L, MPV 10.6, Neut % (Auto) Not Reportable, Absolute Neuts (auto) 7.1, Absolute Lymphs (auto) 1.56, Total Counted 100, Neutrophils % (Manual) 63, Band Neutrophils % 5, Lymphocytes % (Manual) 15 L, Monocytes % (Manual) 12 H, Eosinophils % (Manual) 1, Metamyelocytes % 2 H, Myelocytes % 2 H, Diff Path Review May , Platelet Estimate SLT DEC, RBC Morphology NORM C+C 08/16/22 06:06: Triglycerides 101 08/16/22 06:06: Total Creatine Kinase 38 08/16/22 06:37: POC Glucose 212 H 08/16/22 08:23: Lactic Acid 1.7 08/16/22 12:09: POC Glucose 252 H Micro: Microbiology 08/07/22 16:45 Blood Culture (Wb) - Right Wrist Blood Culture - Final No growth in 5 days. 08/07/22 16:50 Blood Culture (Wb) - Left Foot Blood Culture - Final No growth in 5 days. 08/11/22 01:10 Stool C. difficile DNA Amplification - Final 08/10/22 12:00 Stool Stool Occult Blood (ISAIAS) - Final Occult Blood Positive 08/07/22 15:30 Urine, Clean Catch Urine Culture - Final Pseudomonas fluorescens 08/07/22 15:33 Sputum, Tracheal Aspirate Gram Stain - Final 08/07/22 15:33 Sputum, Tracheal Aspirate Respiratory Culture - Final Mixed normal respiratory ny. No Streptococcus pneumoniae, beta-hemolytic Streptococcus or Staphylococcus aureus isolated. ABG Data ABG results: ABG 08/16/22 08:24 Specimen Type ART Sample Site L Radial pH 7.46 H Bicarbonate Actual 17.7 L Total CO2 18 Base Excess -6 L O2 Saturation 95 ABG pCO2 24.8 L ABG pO2 67 L Scottie Test Positive O2 Delivery Device Cannula Liter Flow 2.0 Rhythm Strip Rhythm Strip: Sinus Tach Rate: 120 Physical Exam Narrative Alert awake no obvious distress no pallor no icterus no JVD s1s2 no murmurs lungs clear abdomen soft no organomegaly +++ edema no cyanosis hameed + Const alert, oriented x3, no apparent distress and average body habitus Orientation / Consciousness: oriented to person and oriented to place HEENT normocephalic Neck no lymphadenopathy Resp no use of accessory muscles and clear to auscultation bilaterally Auscultation: rhonchi and diminished lung sounds bilateral throughout Cardio regular rate Cardio Narrative: Tachycardic GI non-tender Auscultation: normoactive bowel sounds Skin no rashes or lesions noted Neuro Sensorium / Orientation: awake, alert and sedated on vent Psych cooperative Assessment & Plan Assessment/Plan (1) Acute renal failure: PLAN: Baseline creatinine is around 1.5. Came in with acute renal failure, acidosis. Started on renal replacement therapy. Seen on dialysis today. Currently has a left IJ nontunneled dialysis catheter. Blood flows have been poor. Still does not have much urine output. Tunneled dialysis catheter hopefully on Wednesday. Still has significant edema, somewhat better than before. Seen on dialysis today. Blood pressure is acceptable. Acidosis. Significantly elevated anion gap. Lactate levels are normal. No evidence of DKA. Glucose values are acceptable. Related to low quality dialysis yesterday in the setting of poor blood flows? Dialysis has been arranged today again. (2) Chronic kidney disease, stage 3b:
[2022-08-16 14:24] LABS: Anion Gap 14 (5-15); BUN 23 mg/dL (7-18); BUN/Creat Ratio 9.5 RATIO (10-20); Calcium,Total 7.6 mg/dL (8.5-10.1); Chloride 100 mmol/L (98-107); Creatinine, Serum 2.42 mg/dL (0.55-1.02); EST Glomerular Filtration Rate 22 mL/min (>60); Est Glom Filt Rate - Afr Amer 26 mL/min (>60); Estimated Creatinine Clearance 19.12 ml/min; Glucose 195 mg/dL (74-106); Potassium 3.2 mmol/L (3.5-5.1); Sodium Level 142 mmol/L (136-145)
--- NOTE | 2022-08-16 15:38 | DIALYSIS ---
hemodialysis completed x 2 hrs. Access flow problem due to poorly functioning HD cath. Cath nilson dwelled 30 prior to tx. lines reversed. Max BFR 300. frequent high art pressure alarms when pt moved or coughed. Net UF 1500ml. See Hd flowsheet on chart.
[2022-08-16] MEDS: Alteplase 2 MG/2 ML Vial IV ×2 (16:11)
[2022-08-16] MEDS: NEPRO TUBE FEED 1,000 ML 40 ML GT (16:12)
[2022-08-16] MEDS: Insulin Glargine-YFGN 100 UNIT/ML Pen 10 UNIT SC (16:19)
[2022-08-16 17:40] LABS: Bedside Glucose 220 mg/dL (74-106)
[2022-08-16 18:16] LABS: Bedside Glucose 228 mg/dL (74-106)
[2022-08-16] MEDS: Atorvastatin Calcium 20 MG Tablet GT (20:57)
[2022-08-17] VITALS (14 sets, daily range): BP systolic 104–131; BP diastolic 53–64; PULSE 81–95; RESP 16–20; TEMP 36.3–37; O2SAT 92–97; BMI 34.4
[2022-08-17 00:10] LABS: Bedside Glucose 240 mg/dL (74-106)
[2022-08-17 04:22] LABS: Absolute Lymphocyte Count 1.63 X10^3/uL (0.83-4.51); Absolute Neutrophil Count 7.1 X10^3/uL (2.0-7.7); Basophil# 0.03 X10^3/uL; Basophil% 0.3 % (0-1); Eosinophil# 0.17 X10^3/uL; Eosinophils% 1.6 % (0-5); Hematocrit 27.1 % (37-47); Hemoglobin 8.9 g/dL (12.0-15.0); Lymphocyte # 1.63 X10^3/ul (0.83-4.51); Lymphocyte % 15.2 % (19-41); Mean Corp Hgb Conc 32.8 g/dL (32-36); Mean Corpuscular Hgb 27.9 pg (27.0-32.0); Mean Platelet Vol. 10.4 fl (6.2-12.0); Monocyte% 12.1 % (0-10); NRBC Flagged by Analyzer 0 % (0-5); Neutrophil # 7.11 X10^3/uL (2.7-7.7); Neutrophil % 66.5 % (47-70); Platelet Count 154 K/mm3 (150-450); RBC Distribution Width CV 15.2 % (11.6-14.6); RBC Distribution Width SD 47.1 fl (35.1-43.9); Red Blood Count 3.19 M/mm3 (4.2-5.4); White Blood Count 10.7 K/mm3 (4.4-11.0)
[2022-08-17 04:36] LABS: Anion Gap 11 (5-15); BUN 34 mg/dL (7-18); BUN/Creat Ratio 9.1 RATIO (10-20); Calcium,Total 7.7 mg/dL (8.5-10.1); Chloride 99 mmol/L (98-107); Creatinine, Serum 3.72 mg/dL (0.55-1.02); EST Glomerular Filtration Rate 13 mL/min (>60); Est Glom Filt Rate - Afr Amer 16 mL/min (>60); Estimated Creatinine Clearance 12.44 ml/min; Glucose 244 mg/dL (74-106); Magnesium 2.2 mg/dL (1.6-2.6); Phosphorus 3.3 mg/dL (2.5-4.9); Potassium 3.1 mmol/L (3.5-5.1); Sodium Level 139 mmol/L (136-145)
--- NOTE | 2022-08-17 05:55 | RAD_ITS ---
EXAM: XR CHEST, 2 VIEWS CLINICAL INDICATION: Cough Cough TECHNIQUE: Frontal and lateral views of the chest. This report was created using [employer] report generation technology. COMPARISON: 08/11/2022. FINDINGS: LUNGS AND PLEURAL SPACES: There is opacification of the mid and lower lung ruff bilaterally, consistent with pleural effusions and overlying atelectasis or infiltration. There is no definite change. No pneumothorax. HEART: The heart is enlarged. MEDIASTINUM: Central airways and mediastinal contour are unremarkable. BONES/JOINTS: There are multilevel degenerative changes in the visualized spine. SOFT TISSUES: Unremarkable. TUBES, LINES AND DEVICES: There is a double lumen left internal jugular central venous catheter with its tip overlying the proximal superior vena cava. RAD/Chest PA and Lateral IMPRESSION: 1. Central line is in adequate position. 2. Bilateral pulmonary infiltrates and pleural effusions with no definite change. Electronically Signed: Jenaro Scruggs MD at 6:24 EST Reading Location ID and State: [facility] / [place] , Service support ,
[2022-08-17 07:16] LABS: Bedside Glucose 231 mg/dL (74-106)
[2022-08-17] MEDS: Cefazolin 2 GM in 0.9% Normal Saline 100 ML IV (07:27)
[2022-08-17] MEDS: Heparin 10,000 UNITS/10 ML Vial 10000 UNITS (07:59)
[2022-08-17] MEDS: Bupiv/Epi 0.25% 30 ML Vial (07:59)
--- NOTE | 2022-08-17 08:03 | PCM.OPRPT ---
Report of Operation Date of Procedure: 08/17/22 Pre-Operative Diagnosis: Need for dialysis access, acute on chronic kidney disease Post-Operative Diagnosis: Same Surgery/Procedure Performed:: 1. Placement of right IJ tunneled dialysis cath 2. Use of fluoroscopy 3. Use of ultrasound 4. removal of temporary left IJ dialysis cath Surgeon: Leslie Simons Type of Anesthesia: Local MAC Anesthesiologist: Jun Sandoval Special Medications: Ancef 2 g IV x1 Estimated Blood Loss (mL): < 10 cc Description of Procedure: After informed consent was given, the patient was brought to the operating room and placed in the supine position. Appropriate time out protocol was followed. She was then given IV conscious sedation for anesthesia. The patient's right upper chest and neck were then prepped with a surgical skin preparation and sterile surgical drapes were placed. After proper landmarks were ascertained, the skin at the upper right chest area was then infiltrated with 0.25% maricaine with epi. A needle trocar was then inserted into the right internal jugular vein with ultrasound guidance-multiple vessels were viewed with u/s and the right IJ was chosen-- and there was good aspiration of venous blood. A wire was then threaded into the needle trocar and this was visualized under fluoroscopy to ensure that the wire was in the superior vena cava. Once this was done, then the needle trocar was removed. A small incision was made with an 11 blade knife at the wire entrance site. The dilator x2 with the introducer sheath attached was then placed over the wire into the right internal jugular vein via the Seldinger technique and this was visualized under fluoroscopy. Next the introducer and sheath were in proper position as visualized by fluoroscopy. The location of the cuffed was estimated on the skin, an incision was made with a 15 blade scalpel. The straight palindrome 14.5 Iranian x19 cm lot [id number] ref [id number] was tunneled from the chest incision to the right neck incision. The sheath was removed. The catheter was placed through the introducer and was positioned with its tip at the junction of the superior vena cava and the right atrium as visualized under fluoroscopy. The cuff of the catheter was in the subcutaneous tissue. The catheter flushed and didi well with saline. Catheter was also flushed with 1.6 cc of 1-10,000 of heparin. Hemostasis was assured. Silver dressing was placed at the catheter exit site. Catheter was sutured with 3-0 nylon sutures. The neck incision was sutured with interrupted 3-0 Vicryl interrupted sutures x2 and Steri-Strips were placed. A large OpSite was placed over the catheter site and a small OpSite over the neck incision. The left IJ temporary dialysis catheter was removed after permanent sutures. Pressure was held for 15 minutes at exit site. Hemostasis was assured. The patient tolerated the procedure well. Grafts/Implants Used: straight palindrome 14.5 Iranian x19 cm lot [id number] ref [id number] Complications none
--- NOTE | 2022-08-17 08:10 | RAD_ITS ---
STUDY: X-RAY CHEST REASON FOR EXAM: Female, 56 years old. Dialysis catheter -- pacu TECHNIQUE: Single AP portable view of the chest. COMPARISON: Comparison is made with prior study dated 08/17/2022 done earlier today.. FINDINGS: A right-sided double catheter has been placed with the tip in the right atrium. EKG electrodes are seen. Stable bilateral pleural effusions with bibasilar atelectasis and/or infiltrates. Normal size heart. Normal mediastinum and yaneli. Normal visualized pulmonary arteries. Normal visualized aortic arch and descending thoracic aorta. There are diffuse degenerative changes of the visualized thoracic spine. Normal visualized ribs, clavicles, and shoulders. There is no demonstrated abnormality of the visualized soft tissue structures of the upper abdomen. RAD/Chest 1 View (Portable) IMPRESSION: A right-sided double catheter has been placed. The tip is in the right atrium. The remainder of the examination is unremarkable. Electronically Signed: Sunil Quintanilla MD at 8:54 EST ,
--- NOTE | 2022-08-17 08:58 | CASEMGMT ---
SW sent updates to [facility] via [employer] Carolynn Pino CONCILIATOR MULTIPLE PRESSURE RIVETER OPERATOR
--- NOTE | 2022-08-17 10:20 | CASEMGMT ---
Referral for outpatient HD was initiated on Wednesday with [facility]. Updated clinicals sent to [facility] via referral portal. TRACY FALCON called [facility] regarding referral for outpatient HD and that patient will be going to [facility] at discharge. CM will continue to follow this patient and plan for a safe discharge.
--- NOTE | 2022-08-17 10:50 | PN.RENAL_ITS ---
Subjective Subjective S/p right IJ tunneled dialysis catheter placement. Objective Data Objective Data Vital Signs: Vital Signs Temp Pulse Resp BP Pulse Ox O2 Del Method O2 Flow Rate 98.5 F 91 16 131/63 H 93 Nasal Cannula 2 08/17/22 09:19 08/17/22 09:19 08/17/22 09:19 08/17/22 09:19 08/17/22 09:19 08/17/22 09:19 08/17/22 09:19 FiO2 45 08/13/22 02:00 Oxygen Flow Rate (L/min) 2 Oxygen Delivery Method Nasal Cannula Weight: 81.374 kg Body Mass Index (BMI) 33.0 Intake & Output: Intake and Output for Last 24 Hours 08/15/22 08/16/22 08/17/22 23:59 23:59 23:59 Intake Total 360 / 360 2552.33 / 2552.33 235 / 235 Output Total 2600 / 2600 1520 / 1620 250 / 250 Balance -2240 / -2240 1032.33 / 932.33 -15 / -15 Lab / Micro Data Result Diagrams: 08/17/22 04:15 08/17/22 04:15 Labs: Laboratory Results - last 24 hr 08/16/22 12:09: POC Glucose 252 H 08/16/22 13:50: Sodium 142, Potassium 3.2 L, Chloride 100, Carbon Dioxide 28.0, Anion Gap 14, BUN 23 H, Creatinine 2.42 H, Estim Creat Clear Calc 19.12, Est GFR (MDRD) Af Amer 26 L, Est GFR (MDRD) Non-Af 22 L, BUN/Creatinine Ratio 9.5 L, Glucose 195 H, Calcium 7.6 L 08/16/22 13:50: Acetone Level MODERATE H 08/16/22 16:15: POC Glucose 220 H 08/16/22 17:53: POC Glucose 228 H 08/16/22 23:41: POC Glucose 240 H 08/17/22 04:15: WBC 10.7, RBC 3.19 L, Hgb 8.9 L, Hct 27.1 L, MCV 85.0, MCH 27.9, MCHC 32.8, RDW Std Deviation 47.1 H, RDW Coeff of Jacqueline 15.2 H, Plt Count 154, MPV 10.4, Immature Gran % (Auto) 4.300 H, Neut % (Auto) 66.5, Lymph % (Auto) 15.2 L, [place] % (Auto) 12.1 H, Eos % (Auto) 1.6, Baso % (Auto) 0.3, Absolute Neuts (auto) 7.1, Absolute Lymphs (auto) 1.63, Nucleated RBC % 0 08/17/22 04:15: Sodium 139, Potassium 3.1 L, Chloride 99, Carbon Dioxide 29.0, Anion Gap 11, BUN 34 H, Creatinine 3.72 H, Estim Creat Clear Calc 12.44, Est GFR (MDRD) Af Amer 16 L, Est GFR (MDRD) Non-Af 13 L, BUN/Creatinine Ratio 9.1 L, Glucose 244 H, Calcium 7.7 L, Phosphorus 3.3, Magnesium 2.2 08/17/22 06:54: POC Glucose 231 H Micro: Microbiology 08/07/22 16:45 Blood Culture (Wb) - Right Wrist Blood Culture - Final No growth in 5 days. 08/07/22 16:50 Blood Culture (Wb) - Left Foot Blood Culture - Final No growth in 5 days. 08/11/22 01:10 Stool C. difficile DNA Amplification - Final 08/10/22 12:00 Stool Stool Occult Blood (ISAIAS) - Final Occult Blood Positive 08/07/22 15:30 Urine, Clean Catch Urine Culture - Final Pseudomonas fluorescens 08/07/22 15:33 Sputum, Tracheal Aspirate Gram Stain - Final 08/07/22 15:33 Sputum, Tracheal Aspirate Respiratory Culture - Final Mixed normal respiratory ny. No Streptococcus pneumoniae, beta-hemolytic Streptococcus or Staphylococcus aureus isolated. Radiography Diagnostic Testing: Radiology Impression Chest X-Ray 08/17/22 05:55 IMPRESSION: 1. Central line is in adequate position. 2. Bilateral pulmonary infiltrates and pleural effusions with no definite change. Electronically Signed: Jenaro Scruggs MD at 6:24 EST Reading Location ID and State: [facility] / [place] , Service support , Chest X-Ray 08/17/22 08:10 IMPRESSION: A right-sided double catheter has been placed. The tip is in the right atrium. The remainder of the examination is unremarkable. Electronically Signed: Sunil Quintanilla MD at 8:54 EST , Rhythm Strip Rhythm Strip: Sinus Tach Rate: 120 Physical Exam Narrative Alert awake no obvious distress no pallor no icterus no JVD s1s2 no murmurs lungs clear abdomen soft no organomegaly +++ edema no cyanosis hameed + Const alert, oriented x3, no apparent distress and average body habitus Orientation / Consciousness: oriented to person and oriented to place HEENT normocephalic Neck no lymphadenopathy Resp no use of accessory muscles and clear to auscultation bilaterally Auscultation: rhonchi and diminished lung sounds bilateral throughout Cardio regular rate Cardio Narrative: Tachycardic GI non-tender Auscultation: normoactive bowel sounds Skin no rashes or lesions noted Neuro Sensorium / Orientation: awake, alert and sedated on vent Psych cooperative Assessment & Plan Assessment/Plan (1) Acute renal failure: PLAN: Baseline creatinine is around 1.5. Came in with acute renal failure, acidosis. Started on renal replacement therapy. Dialysis planned for later today. Still has moderate amount of edema but better overall. Acidosis. Resolved today. Hameed catheter can be removed (2) Chronic kidney disease, stage 3b:
[2022-08-17] MEDS: levETIRAcetam Oral Solution 500 MG/5 ML GT ×2 (10:59→21:21)
[2022-08-17] MEDS: Cyanocobalamin 500 MCG Tablet 1000 MCG GT (11:00)
[2022-08-17] MEDS: Lansoprazole 15 MG Capsule.DR 30 MG GT ×2 (11:00→21:22)
[2022-08-17] MEDS: lamoTRIgine 25 MG Tablet GT (11:00)
[2022-08-17] MEDS: Cholecalciferol (VIT D3) 25 MCG TABLET (1,000 UNITS) 50 MCG GT (11:00)
[2022-08-17 11:35] LABS: Bedside Glucose 233 mg/dL (74-106)
[2022-08-17 12:46] LABS: Bedside Glucose 231 mg/dL (74-106)
[2022-08-17] MEDS: Insulin Glargine-YFGN 100 UNIT/ML Pen 10 UNIT SC (12:48)
[2022-08-17] MEDS: Insulin Lispro 100 UNIT/ML INSULN.PEN SC ×3 (12:48→23:44)
[2022-08-17 14:25] LABS: Pathologist Review Reviewed
[2022-08-17] MEDS: Potassium Chloride Oral Soln 20 MEQ/15 ML UDC 40 MEQ GT (14:43)
--- NOTE | 2022-08-17 15:20 | CASEMGMT ---
Per [facility] if patient has to be transported to dialysis via cot her chair time would need to be before noon. SW received dialysis schedule and patient's chair time is M,W,F at 7:15a. SW notified Joanna at [facility] via [employer]. SW also send updated information and asked that pre-cert be started. JANEL will also talk with patient and/or her regarding this information. Carolynn Pino COMMUNICATION ASSISTANT JEFRY
--- NOTE | 2022-08-17 15:32 | CASEMGMT ---
SW went to patient's room to update her on [facility] and her dialysis. Patient was on dialysis and sleeping. JANEL will check back with patient tomorrow. Carolynn CAPPS
--- NOTE | 2022-08-17 15:47 | CASEMGMT ---
SW asked [facility] to please start pre-cert if they are able to take patient. Joanna responded they are trying to make sure they can get transport to dialysis first. Carolynn Pino BOAT ASSEMBLER JEFRY
--- NOTE | 2022-08-17 15:58 | PCM.PN.HOSP ---
Subjective Subjective Fatigue getting dialysis, no issues overnight Objective Data Objective Data Vital Signs: Vital Signs Temp Pulse Resp BP Pulse Ox O2 Del Method O2 Flow Rate 97.8 F 92 16 109/55 L 95 Room Air 2 08/17/22 13:20 08/17/22 13:20 08/17/22 13:20 08/17/22 13:20 08/17/22 13:20 08/17/22 13:20 08/17/22 12:39 FiO2 45 08/13/22 02:00 Oxygen Flow Rate (L/min) 2 Oxygen Delivery Method Room Air Weight: 179 lb 6.4 oz Body Mass Index (BMI) 33.0 Intake & Output: Intake and Output for Last 24 Hours 08/16/22 08/17/22 08/18/22 03:59 03:59 03:59 Intake Total 542 / 542 2370.33 / 2370.33 685 / 685 Output Total 2600 / 2600 1620 / 1620 200 / 200 Balance -8 / -2057 750.33 / 750.33 485 / 485 Lab / Micro Data Result Diagrams: 08/17/22 04:15 08/17/22 04:15 Labs: Laboratory Results - last 24 hr 08/16/22 06:06: Diff Path Review Reviewed 08/16/22 16:15: POC Glucose 220 H 08/16/22 17:53: POC Glucose 228 H 08/16/22 23:41: POC Glucose 240 H 08/17/22 04:15: WBC 10.7, RBC 3.19 L, Hgb 8.9 L, Hct 27.1 L, MCV 85.0, MCH 27.9, MCHC 32.8, RDW Std Deviation 47.1 H, RDW Coeff of Jacqueline 15.2 H, Plt Count 154, MPV 10.4, Immature Gran % (Auto) 4.300 H, Neut % (Auto) 66.5, Lymph % (Auto) 15.2 L, [place] % (Auto) 12.1 H, Eos % (Auto) 1.6, Baso % (Auto) 0.3, Absolute Neuts (auto) 7.1, Absolute Lymphs (auto) 1.63, Nucleated RBC % 0 08/17/22 04:15: Sodium 139, Potassium 3.1 L, Chloride 99, Carbon Dioxide 29.0, Anion Gap 11, BUN 34 H, Creatinine 3.72 H, Estim Creat Clear Calc 12.44, Est GFR (MDRD) Af Amer 16 L, Est GFR (MDRD) Non-Af 13 L, BUN/Creatinine Ratio 9.1 L, Glucose 244 H, Calcium 7.7 L, Phosphorus 3.3, Magnesium 2.2 08/17/22 06:35: POC Glucose 233 H 08/17/22 06:54: POC Glucose 231 H 08/17/22 12:18: POC Glucose 231 H Micro: Microbiology 08/07/22 16:45 Blood Culture (Wb) - Right Wrist Blood Culture - Final No growth in 5 days. 08/07/22 16:50 Blood Culture (Wb) - Left Foot Blood Culture - Final No growth in 5 days. 08/11/22 01:10 Stool C. difficile DNA Amplification - Final 08/10/22 12:00 Stool Stool Occult Blood (ISAIAS) - Final Occult Blood Positive 08/07/22 15:30 Urine, Clean Catch Urine Culture - Final Pseudomonas fluorescens 08/07/22 15:33 Sputum, Tracheal Aspirate Gram Stain - Final 08/07/22 15:33 Sputum, Tracheal Aspirate Respiratory Culture - Final Mixed normal respiratory ny. No Streptococcus pneumoniae, beta-hemolytic Streptococcus or Staphylococcus aureus isolated. Radiography Diagnostic Testing: Radiology Impression Chest X-Ray 08/17/22 05:55 IMPRESSION: 1. Central line is in adequate position. 2. Bilateral pulmonary infiltrates and pleural effusions with no definite change. Electronically Signed: Jenaro Scruggs MD at 6:24 EST , Chest X-Ray 08/17/22 08:10 IMPRESSION: A right-sided double catheter has been placed. The tip is in the right atrium. The remainder of the examination is unremarkable. Electronically Signed: Sunil Quintanilla MD at 8:54 EST , Rhythm Strip Rhythm Strip: Sinus Tach Rate: 120 Physical Exam Narrative General: Alert, Oriented x3, Cooperative, No apparent distress HEENT: Atraumatic, PERRLA, EOMI, Normocephalic Oral: Moist Mucosa Neck: Supple, No JVD, right tunneled catheter Lungs: Clear to auscultation, Normal air movement, No rhonchi, No wheeze, No rales Cardiovascular: Regular rate, Regular Rhythm, Normal S1, Normal S2, No murmurs Abdomen: Soft, Non Tender, Non-Distended, No Hepato-splenomegaly, PEG tube in place Extremities: Edema, Capillary Refill Less than 3 Seconds Skin: No rashes, No breakdown Musculoskeletal: No Tenderness to Palpation of Joints or Extremities Neurological: Moves all extremities, sensation intact Psych/Mental Status: Normal Affect, Appropriate Assessment & Plan Assessment/Plan (1) Acute hypotension: (2) Shock: (3) Metabolic acidosis: (4) Toxic metabolic encephalopathy: (5) Acute respiratory failure with hypoxia and hypercapnia: (6) Hypothermia: (7) Vitamin D deficiency: (8) Lactic acidosis: (9) Acute renal failure: (10) Bradycardia: (11) Acute respiratory failure with hypoxia: (12) Hypomagnesemia: (13) Anemia: (14) Thrombocytopenia: (15) Hypokalemia: PLAN: Plan 1. Acute respiratory failure with an anion gap metabolic acidosis/shock unknown etiology/MARY on CKD 3B/dysphagia/toxic versus metabolic encephalopathy ? Unsure as to the etiology of shock however this has resolved and she is not currently on any pressors ? Her specialty levels are still pending ? She was intubated on admission on 08/07/2022 and extubated on 08/11/2022 she is maintaining her oxygen sats currently at 2 L nasal cannula ? Her bicarb today was normal and she no longer has an anion gap ? Appreciate nephrology's assistance continue with dialysis, she did have a right tunneled catheter placed today ? Had PEG tube placed on 08/15/2022 we will continue to feed via PEG tube secondary to her failure on her modified barium swallow on 08/13/2022 2. Acute anemia/thrombocytopenia/GERD ? She did receive multiple red blood cell transfusions, currently down to 8.9 ? We will continue to monitor continue with PPI ? EGD done on 08/14/2022 states that she possibly had dehiscence of her previous gastric bypass surgery ? Thrombocytopenia removed, however HIT panel is pending 3. DM2/pancreatic insufficiency ? Continue with insulin ? Accu-Cheks ACHS ? We will make adjustments as necessary and continue to monitor ? Continue with Creon 4. Hypertension ? Blood pressures are stable, will continue to hold pressure medications 5. Seizure disorder/chronic headaches ? Stable ? Continue with her home medications 6. Depression ? Stable neck ? Unable to get her medications as they cannot be crushed via the PEG tube DVT: SCDs Charges/Coding Visit Charges Inpatient E&M: 84125 Subs Hosp L2
[2022-08-17] MEDS: Acetaminophen 500 MG Tablet PO (17:05)
[2022-08-17] MEDS: NEPRO TUBE FEED 1,000 ML 40 ML GT (17:29)
--- NOTE | 2022-08-17 17:34 | PCM.PROGNOTE ---
Subjective Subjective Patient is more awake and alert today. She still is fatigued and weak. She is not eating, but is getting tube feedings. Objective Data Objective Data Vital Signs: Vital Signs Temp Pulse Resp BP Pulse Ox O2 Del Method O2 Flow Rate 97.8 F 92 16 109/55 L 95 Room Air 2 08/17/22 13:20 08/17/22 13:20 08/17/22 13:20 08/17/22 13:20 08/17/22 13:20 08/17/22 13:20 08/17/22 12:39 FiO2 45 08/13/22 02:00 Oxygen Flow Rate (L/min) 2 Oxygen Delivery Method Room Air Weight: 179 lb 6.4 oz Body Mass Index (BMI) 33.0 Intake & Output: Intake and Output for Last 24 Hours 08/15/22 08/16/22 08/17/22 23:59 23:59 23:59 Intake Total 360 / 360 2552.33 / 2552.33 685 / 685 Output Total 2600 / 2600 1520 / 1620 300 / 300 Balance -2240 / -2240 1032.33 / 932.33 385 / 385 Lab / Micro Data Result Diagrams: 08/17/22 04:15 08/17/22 04:15 Labs: Laboratory Results - last 24 hr 08/16/22 06:06: Diff Path Review Reviewed 08/16/22 16:15: POC Glucose 220 H 08/16/22 17:53: POC Glucose 228 H 08/16/22 23:41: POC Glucose 240 H 08/17/22 04:15: WBC 10.7, RBC 3.19 L, Hgb 8.9 L, Hct 27.1 L, MCV 85.0, MCH 27.9, MCHC 32.8, RDW Std Deviation 47.1 H, RDW Coeff of Jacqueline 15.2 H, Plt Count 154, MPV 10.4, Immature Gran % (Auto) 4.300 H, Neut % (Auto) 66.5, Lymph % (Auto) 15.2 L, [place] % (Auto) 12.1 H, Eos % (Auto) 1.6, Baso % (Auto) 0.3, Absolute Neuts (auto) 7.1, Absolute Lymphs (auto) 1.63, Nucleated RBC % 0 08/17/22 04:15: Sodium 139, Potassium 3.1 L, Chloride 99, Carbon Dioxide 29.0, Anion Gap 11, BUN 34 H, Creatinine 3.72 H, Estim Creat Clear Calc 12.44, Est GFR (MDRD) Af Amer 16 L, Est GFR (MDRD) Non-Af 13 L, BUN/Creatinine Ratio 9.1 L, Glucose 244 H, Calcium 7.7 L, Phosphorus 3.3, Magnesium 2.2 08/17/22 06:35: POC Glucose 233 H 08/17/22 06:54: POC Glucose 231 H 08/17/22 12:18: POC Glucose 231 H Micro: Microbiology 08/07/22 16:45 Blood Culture (Wb) - Right Wrist Blood Culture - Final No growth in 5 days. 08/07/22 16:50 Blood Culture (Wb) - Left Foot Blood Culture - Final No growth in 5 days. 08/11/22 01:10 Stool C. difficile DNA Amplification - Final 08/10/22 12:00 Stool Stool Occult Blood (ISAIAS) - Final Occult Blood Positive 08/07/22 15:30 Urine, Clean Catch Urine Culture - Final Pseudomonas fluorescens 08/07/22 15:33 Sputum, Tracheal Aspirate Gram Stain - Final 08/07/22 15:33 Sputum, Tracheal Aspirate Respiratory Culture - Final Mixed normal respiratory ny. No Streptococcus pneumoniae, beta-hemolytic Streptococcus or Staphylococcus aureus isolated. Radiography Diagnostic Testing: Radiology Impression Chest X-Ray 08/17/22 05:55 IMPRESSION: 1. Central line is in adequate position. 2. Bilateral pulmonary infiltrates and pleural effusions with no definite change. Electronically Signed: Jenaro Scruggs MD at 6:24 EST , Chest X-Ray 08/17/22 08:10 IMPRESSION: A right-sided double catheter has been placed. The tip is in the right atrium. The remainder of the examination is unremarkable. Electronically Signed: Sunil Quintanilla MD at 8:54 EST , Rhythm Strip Rhythm Strip: Sinus Tach Rate: 120 Physical Exam Narrative Alert awake no obvious distress no pallor no icterus no JVD s1s2 no murmurs lungs clear abdomen soft no organomegaly +++ edema no cyanosis hameed + Const alert, oriented x3, no apparent distress and average body habitus Constitutional Narrative: Middle-aged white female, on 2 L nasal cannula, sitting up in bed, appears comfortable, nontoxic, oriented to self and place, told me it was August and unable to come up with the date today Orientation / Consciousness: oriented to person and oriented to place HEENT normocephalic HEENT Narrative: Mallampati 2, no thrush Head and Scalp: normocephalic Eyes PERRL, EOMs intact bilaterally and conjunctivae normal Eyes Narrative: Mildly pale conjunctiva, no scleral icterus Neck no lymphadenopathy Neck Narrative: Left IJ dialysis catheter in place-clean and dry Resp no use of accessory muscles and clear to auscultation bilaterally Auscultation: rhonchi and diminished lung sounds bilateral throughout Cardio regular rate Cardio Narrative: Tachycardic GI non-tender GI Narrative: PEG in place, tolerating tube feed Auscultation: normoactive bowel sounds Extremity Extremity Narrative: 2+ pedal pulses, 2+ pitting edema bilateral lower and upper extremities, no cyanosis or clubbing Skin no rashes or lesions noted Skin Narrative: Swollen as noted below with abnormal turgor due to edema Neuro CN's II-XII intact bilaterally, moves all extremities and no focal motor deficits Neuro Narrative: Voice quality continues to improve, mild confusion with regards to time orientation today, speech is slow and deliberate but intelligible and appropriate Sensorium / Orientation: awake, alert and sedated on vent Speech: Negative for speech normal Motor Exam: Negative for strength 5/5 throughout Psych cooperative Psych Narrative: Affect and mood appropriate for situation Assessment & Plan Assessment/Plan (1) Anemia: PLAN: Acute blood loss anemia with thrombocytopenia 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 Anemia was determined to be blood loss anemia. She does not seem to be bleeding at this time. Recommend Protonix 40 mg IV every 12 hours. (2) Thrombocytopenia: PLAN: Thought to be secondary to dilution and acute illness.. A HIT panel is pending (3) Dysphagia: PLAN: Status post PEG tube placement. Hopefully if she gets her strength back we will be able to remove the PEG in the future. She is making very good progress. She does have severe anasarca secondary to protein, nutrition, acute illness and other factors. (4) Metabolic acidosis: PLAN: I talk with anesthesiology and explained that there is a possibility that she could be having a drug reaction causing significant acidosis. They did not think that the administration of propofol contributing to her recurrent acidosis. I am not sure why she developed worsening acidosis at this time. Charges/Coding Visit Charges Inpatient E&M: 23085 Subs Hosp L3
--- NOTE | 2022-08-17 18:25 | DIALYSIS ---
08/17/22 Hemodialysis treatment x 3.0 hours, net UF 1500 ml, VSS. HD catheter positional - venous port occludes if patient turns her head to her left (pressures WNL with patient's head turned slightly to her right), arterial pressures cause flow stoppage when patient coughs. Blood returned at end of treatment, catheter ports closed with heparin 1000 units/ml (1.6 ml in each lumen). RN report at bedside.
[2022-08-17 18:36] LABS: Bedside Glucose 151 mg/dL (74-106)
[2022-08-17] MEDS: Menthol/Lanolin/Calamine/Znox 113 GM Tube 1 APPLIC TOPICAL (21:21)
[2022-08-17] MEDS: Atorvastatin Calcium 20 MG Tablet GT (21:22)
[2022-08-18] VITALS (7 sets, daily range): BP systolic 123–133; BP diastolic 55–70; PULSE 81–89; RESP 16–20; TEMP 36.5–37.2; O2SAT 93–98; BMI 33.0
[2022-08-18 02:15] LABS: Bedside Glucose 175 mg/dL (74-106)
[2022-08-18] MEDS: Insulin Lispro 100 UNIT/ML INSULN.PEN SC ×3 (05:21→18:36)
[2022-08-18 06:45] LABS: Bedside Glucose 213 mg/dL (74-106)
--- NOTE | 2022-08-18 08:35 | PN.SURG_ITS ---
Subjective Subjective Patient had no issues using her tunneled dialysis catheter yesterday for dialysis Objective Data Objective Data Vital Signs: Vital Signs Temp Pulse Resp BP Pulse Ox O2 Del Method O2 Flow Rate 98.2 F 83 20 H 129/62 H 96 Nasal Cannula 2 08/18/22 05:19 08/18/22 05:19 08/18/22 05:19 08/18/22 05:19 08/18/22 05:19 08/18/22 08:06 08/18/22 08:06 FiO2 45 08/13/22 02:00 Oxygen Flow Rate (L/min) 2 Oxygen Delivery Method Nasal Cannula Weight: 179 lb 14.355 oz Body Mass Index (BMI) 33.0 Intake & Output: Intake and Output for Last 24 Hours 08/16/22 08/17/22 08/18/22 23:59 23:59 23:59 Intake Total 2552.33 / 2552.33 1413 / 1413 125 / 125 Output Total 1520 / 1620 1800 / 1800 Balance 1032.33 / 932.33 -387 / -387 125 / 125 Lab / Micro Data Result Diagrams: 08/17/22 04:15 08/17/22 04:15 Labs: Laboratory Results - last 24 hr 08/09/22 08:25: Miscellaneous Test 08/10/22 13:30: Miscellaneous Test 08/16/22 06:06: Diff Path Review Reviewed 08/17/22 06:35: POC Glucose 233 H 08/17/22 12:18: POC Glucose 231 H 08/17/22 17:02: POC Glucose 151 H 08/17/22 23:43: POC Glucose 175 H 08/18/22 05:17: POC Glucose 213 H Micro: Microbiology 08/07/22 16:45 Blood Culture (Wb) - Right Wrist Blood Culture - Final No growth in 5 days. 08/07/22 16:50 Blood Culture (Wb) - Left Foot Blood Culture - Final No growth in 5 days. 08/11/22 01:10 Stool C. difficile DNA Amplification - Final 08/10/22 12:00 Stool Stool Occult Blood (ISAIAS) - Final Occult Blood Positive 08/07/22 15:30 Urine, Clean Catch Urine Culture - Final Pseudomonas fluorescens 08/07/22 15:33 Sputum, Tracheal Aspirate Gram Stain - Final 08/07/22 15:33 Sputum, Tracheal Aspirate Respiratory Culture - Final Mixed normal respiratory ny. No Streptococcus pneumoniae, beta-hemolytic Streptococcus or Staphylococcus aureus isolated. Radiography Diagnostic Testing: Radiology Impression Chest X-Ray 08/17/22 08:10 IMPRESSION: A right-sided double catheter has been placed. The tip is in the right atrium. The remainder of the examination is unremarkable. Electronically Signed: Sunil Quintanilla MD at 8:54 EST , Rhythm Strip Rhythm Strip: Sinus Tach Rate: 120 Physical Exam Const oriented x3 and no apparent distress Constitutional Narrative: Right IJ tunneled dialysis catheter dressed. Assessment & Plan Assessment/Plan (1) Acute renal failure: PLAN: Plan Patient tolerated dialysis and no issues with the dialysis catheter. Will sign off call with questions. Leslie Simons M.D. Pager: [phone] [facility] [address] [place] [address], [facility], [address] [place] [address] Office: [phone] Charges/Coding Visit Charges Inpatient E&M: 11041 Subs Hosp L2
[2022-08-18] MEDS: levETIRAcetam Oral Solution 500 MG/5 ML GT ×2 (10:27→20:14)
[2022-08-18] MEDS: Cholecalciferol (VIT D3) 25 MCG TABLET (1,000 UNITS) 50 MCG GT (10:28)
[2022-08-18] MEDS: lamoTRIgine 25 MG Tablet GT (10:28)
[2022-08-18] MEDS: Lansoprazole 15 MG Capsule.DR 30 MG GT ×2 (10:28→20:14)
[2022-08-18] MEDS: Cyanocobalamin 500 MCG Tablet 1000 MCG GT (10:28)
--- NOTE | 2022-08-18 11:19 | PN.HOSP_ITS ---
Subjective Subjective States that she feels about the same as yesterday, not getting dialysis today attempting to get labs redrawn Objective Data Objective Data Vital Signs: Vital Signs Temp Pulse Resp BP Pulse Ox O2 Del Method O2 Flow Rate 98.6 F 88 16 124/63 H 98 Nasal Cannula 2 08/18/22 09:20 08/18/22 09:20 08/18/22 09:20 08/18/22 09:20 08/18/22 09:20 08/18/22 09:20 08/18/22 09:20 FiO2 45 08/13/22 02:00 Oxygen Flow Rate (L/min) 2 Oxygen Delivery Method Nasal Cannula Weight: 179 lb 14.355 oz Body Mass Index (BMI) 33.0 Intake & Output: Intake and Output for Last 24 Hours 08/17/22 08/18/22 08/19/22 03:59 03:59 03:59 Intake Total 2370.33 / 2370.33 1413 / 1413 125 / 125 Output Total 1620 / 1620 1700 / 1700 Balance 750.33 / 750.33 -287 / -287 125 / 125 Lab / Micro Data Result Diagrams: 08/17/22 04:15 08/17/22 04:15 Labs: Laboratory Results - last 24 hr 08/09/22 08:25: Miscellaneous Test 08/10/22 13:30: Miscellaneous Test 08/16/22 06:06: Diff Path Review Reviewed 08/17/22 06:35: POC Glucose 233 H 08/17/22 12:18: POC Glucose 231 H 08/17/22 17:02: POC Glucose 151 H 08/17/22 23:43: POC Glucose 175 H 08/18/22 05:17: POC Glucose 213 H 08/18/22 08:30: WBC Cancelled, Corrected WBC Cancelled, RBC Cancelled, Hgb Cancelled, Hct Cancelled, MCV Cancelled, MCH Cancelled, MCHC Cancelled, RDW Std Deviation Cancelled, RDW Coeff of Jacqueline Cancelled, Plt Count Cancelled, MPV Cancelled, Immature Gran % (Auto) Cancelled, Neut % (Auto) Cancelled, Lymph % (Auto) Cancelled, [place] % (Auto) Cancelled, Eos % (Auto) Cancelled, Baso % (Auto) Cancelled, Absolute Neuts (auto) Cancelled, Absolute Lymphs (auto) Cancelled, Total Counted Cancelled, Neutrophils % (Manual) Cancelled, Band Neutrophils % C ancelled, Lymphocytes % (Manual) Cancelled, Monocytes % (Manual) Cancelled, Eosinophils % (Manual) Cancelled, Basophils % (Manual) Cancelled, Metamyelocytes % Cancelled, Myelocytes % Cancelled, Promyelocytes % Cancelled, Blast Cells % Cancelled, Plasma Cell % (Manual) Cancelled, Other Cells % Cancelled, Nucleated RBC % Cancelled, Nucleated RBCs/100 WBC Cancelled, Differential Comment Cancelled, Diff Path Review Cancelled, Hypersegmented Neuts Cancelled, Atypical Lymphocytes Cancelled, Reactive Lymphocytes Cancelled, Smudge Cells Cancelled, Toxic Granulation Cancelled, Toxic Vacuolation Cancelled, Dohle Bodies Cancelled, Renetta Rods Cancelled, Platelet Estimate Cancelled, Plt Morphology Comment Cancelled, RBC Morphology Cancelled, Polychromasia Cancelled, Hypochromasia Cancelled, Poikilocytosis Cancelled, Basophilic Stippling Cancelled, Anisocytosis Cancelled, Microcytosis Cancelled, Macrocytosis Cancelled, Spherocytes Cancelled, Sickle Cells Cancelled, Target Cells Cancelled, Tear Drop Cells Cancelled, Ovalocytes Cancelled, Stomatocytes Cancelled, Jeter[place] Bodies Cancelled, [place] Cells Cancelled, Bite Cells Cancelled, Crenated Cell Cancelled, Acanthocytes (Spur) Cancelled, Rouleaux Cancelled, Schistocytes Cancelled 08/18/22 08:30: Sodium Cancelled, Potassium Cancelled, Chloride Cancelled, Carbon Dioxide Cancelled, Anion Gap Cancelled, BUN Cancelled, Creatinine Cancelled, Estim Creat Clear Calc Cancelled, Est GFR (MDRD) Af Amer Cancelled, Est GFR (MDRD) Non-Af Cancelled, BUN/Creatinine Ratio Cancelled, Glucose Cancelled, Calcium Cancelled Micro: Microbiology 08/07/22 16:45 Blood Culture (Wb) - Right Wrist Blood Culture - Final No growth in 5 days. 08/07/22 16:50 Blood Culture (Wb) - Left Foot Blood Culture - Final No growth in 5 days. 08/11/22 01:10 Stool C. difficile DNA Amplification - Final 08/10/22 12:00 Stool Stool Occult Blood (ISAIAS) - Final Occult Blood Positive 08/07/22 15:30 Urine, Clean Catch Urine Culture - Final Pseudomonas fluorescens 08/07/22 15:33 Sputum, Tracheal Aspirate Gram Stain - Final 08/07/22 15:33 Sputum, Tracheal Aspirate Respiratory Culture - Final Mixed normal respiratory ny. No Streptococcus pneumoniae, beta-hemolytic Streptococcus or Staphylococcus aureus isolated. Rhythm Strip Rhythm Strip: Sinus Tach Rate: 120 Physical Exam Narrative General: Alert, Oriented x3, Cooperative, No apparent distress HEENT: Atraumatic, PERRLA, EOMI, Normocephalic Oral: Moist Mucosa Neck: Supple, No JVD, right tunneled catheter Lungs: Clear to auscultation, Normal air movement, No rhonchi, No wheeze, No rales Cardiovascular: Regular rate, Regular Rhythm, Normal S1, Normal S2, No murmurs Abdomen: Soft, Non Tender, Non-Distended, No Hepato-splenomegaly, PEG tube in place Extremities: Edema, Capillary Refill Less than 3 Seconds Skin: No rashes, No breakdown Musculoskeletal: No Tenderness to Palpation of Joints or Extremities Neurological: Moves all extremities, sensation intact Psych/Mental Status: Flat affect, Appropriate Assessment & Plan Assessment/Plan (1) Acute hypotension: (2) Shock: (3) Metabolic acidosis: (4) Toxic metabolic encephalopathy: (5) Acute respiratory failure with hypoxia and hypercapnia: (6) Hypothermia: (7) Vitamin D deficiency: (8) Lactic acidosis: (9) Acute renal failure: (10) Bradycardia: (11) Acute respiratory failure with hypoxia: (12) Hypomagnesemia: (13) Anemia: (14) Thrombocytopenia: (15) Hypokalemia: PLAN: Plan 1. Acute respiratory failure with an anion gap metabolic acidosis/shock unknown etiology/MARY on CKD 3B/dysphagia/toxic versus metabolic encephalopathy ? Unsure as to the etiology of shock however this has resolved and she is not currently on any pressors ? Her specialty levels are still pending ? She was intubated on admission on 08/07/2022 and extubated on 08/11/2022 she is maintaining her oxygen sats currently at 2 L nasal cannula ? Her anion gap is closed however unable to get labs today we will see if we can have the dialysis nurse draw from the dialysis line ? Appreciate nephrology's assistance continue with dialysis, she did have a right tunneled catheter placed today ? Had PEG tube placed on 08/15/2022 we will continue to feed via PEG tube secondary to her failure on her modified barium swallow on 08/13/2022 2. Acute anemia/thrombocytopenia/GERD ? She did receive multiple red blood cell transfusions, currently down to 8.9, attempting to recheck today ? We will continue to monitor continue with PPI ? EGD done on 08/14/2022 states that she possibly had dehiscence of her previous gastric bypass surgery ? Thrombocytopenia resolved, however HIT panel is pending 3. DM2/pancreatic insufficiency ? Continue with insulin ? Accu-Cheks ACHS ? We will make adjustments as necessary and continue to monitor ? Continue with Creon 4. Hypertension ? Blood pressures are stable, will continue to hold pressure medications 5. Seizure disorder/chronic headaches ? Stable ? Continue with her home medications 6. Depression ? Stable neck ? Unable to get her medications as they cannot be crushed via the PEG tube DVT: SCDs Charges/Coding Visit Charges Inpatient E&M: 75107 Subs Hosp L2
--- NOTE | 2022-08-18 11:37 | CASEMGMT ---
JANEL received a response from Joanna at [facility]. [employer] said they have transport set up for patient, but the company cannot start until Wednesday. Therefore, patient could not go to [facility] until Wednesday after her dialysis. JANEL said that is fine and asked that they start pre-cert. JANEL will also talk with patient to update her. Plan: d/c to [facility] pending pre-cert. Dialysis will be at [facility] in [place] M,W,F at 7:15a. Carolynn [facility] [employer] CAPPS
[2022-08-18] MEDS: Insulin Glargine-YFGN 100 UNIT/ML Pen 10 UNIT SC (12:09)
[2022-08-18 12:30] LABS: Bedside Glucose 235 mg/dL (74-106)
--- NOTE | 2022-08-18 12:39 | CASEMGMT ---
SW notified patient that [facility] has accepted her and they will be able to transport her back and forth to dialysis. SW provided patient with her dialysis schedule letter. Plan: d/c to [facility] pending insurance approval. Carolynn CAPPS
--- NOTE | 2022-08-18 14:00 | WOUNDNOTE ---
wound photo: sacrum
--- NOTE | 2022-08-18 14:24 | PCM.PN.REN ---
Subjective Subjective no new complaints today Objective Data Objective Data Vital Signs: Vital Signs Temp Pulse Resp BP Pulse Ox O2 Del Method O2 Flow Rate 98.1 F 81 16 125/55 H 96 Nasal Cannula 1 08/18/22 13:20 08/18/22 13:20 08/18/22 13:20 08/18/22 13:20 08/18/22 13:20 08/18/22 13:20 08/18/22 13:20 FiO2 45 08/13/22 02:00 Oxygen Flow Rate (L/min) 1 Oxygen Delivery Method Nasal Cannula Weight: 81.6 kg Body Mass Index (BMI) 33.0 Intake & Output: Intake and Output for Last 24 Hours 08/16/22 08/17/22 08/18/22 23:59 23:59 23:59 Intake Total 2552.33 / 2552.33 1413 / 1413 475 / 475 Output Total 1520 / 1620 1800 / 1800 Balance 1032.33 / 932.33 -387 / -387 475 / 475 Lab / Micro Data Result Diagrams: 08/17/22 04:15 08/17/22 04:15 Labs: Laboratory Results - last 24 hr 08/09/22 08:25: Miscellaneous Test 08/10/22 13:30: Miscellaneous Test 08/16/22 06:06: Diff Path Review Reviewed 08/17/22 17:02: POC Glucose 151 H 08/17/22 23:43: POC Glucose 175 H 08/18/22 05:17: POC Glucose 213 H 08/18/22 08:30: WBC Cancelled, Corrected WBC Cancelled, RBC Cancelled, Hgb Cancelled, Hct Cancelled, MCV Cancelled, MCH Cancelled, MCHC Cancelled, RDW Std Deviation Cancelled, RDW Coeff of Jacqueline Cancelled, Plt Count Cancelled, MPV Cancelled, Immature Gran % (Auto) Cancelled, Neut % (Auto) Cancelled, Lymph % (Auto) Cancelled, [place] % (Auto) Cancelled, Eos % (Auto) Cancelled, Baso % (Auto) Cancelled, Absolute Neuts (auto) Cancelled, Absolute Lymphs (auto) Cancelled, Total Counted Cancelled, Neutrophils % (Manual) Cancelled, Band Neutrophils % Cancelled, Lymphocytes % (Manual) Cancelled, Monocytes % (Manual) Cancelled, Eosinophils % (Manual) Cancelled, Basophils % (Manual) Cancelled, Metamyelocytes % Cancelled, Myelocytes % Cancelled, Promyelocytes % Cancelled, Blast Cells % Cancelled, Plasma Cell % (Manual) Cancelled, Other Cells % Cancelled, Nucleated RBC % Cancelled, Nucleated RBCs/100 WBC Cancelled, Differential Comment Cancelled, Diff Path Review Cancelled, Hypersegmented Neuts Cancelled, Atypical Lymphocytes Cancelled, Reactive Lymphocytes Cancelled, Smudge Cells Cancelled, Toxic Granulation Cancelled, Toxic Vacuolation Cancelled, Dohle Bodies Cancelled, Renetta Rods Cancelled, Platelet Estimate Cancelled, Plt Morphology Comment Cancelled, RBC Morphology Cancelled, Polychromasia Cancelled, Hypochromasia Cancelled, Poikilocytosis Cancelled, Basophilic Stippling Cancelled, Anisocytosis Cancelled, Microcytosis Cancelled, Macrocytosis Cancelled, Spherocytes Cancelled, Sickle Cells Cancelled, Target Cells Cancelled, Tear Drop Cells Cancelled, Ovalocytes Cancelled, Stomatocytes Cancelled, Jeter-Rosa Sanchez Bodies Cancelled, [place] Cells Cancelled, Bite Cells Cancelled, Crenated Cell Cancelled, Acanthocytes (Spur) Cancelled, Rouleaux Cancelled, Schistocytes Cancelled 08/18/22 08:30: Sodium Cancelled, Potassium Cancelled, Chloride Cancelled, Carbon Dioxide Cancelled, Anion Gap Cancelled, BUN Cancelled, Creatinine Cancelled, Estim Creat Clear Calc Cancelled, Est GFR (MDRD) Af Amer Cancelled, Est GFR (MDRD) Non-Af Cancelled, BUN/Creatinine Ratio Cancelled, Glucose Cancelled, Calcium Cancelled 08/18/22 12:08: POC Glucose 235 H Micro: Microbiology 08/07/22 16:45 Blood Culture (Wb) - Right Wrist Blood Culture - Final No growth in 5 days. 08/07/22 16:50 Blood Culture (Wb) - Left Foot Blood Culture - Final No growth in 5 days. 08/11/22 01:10 Stool C. difficile DNA Amplification - Final 08/10/22 12:00 Stool Stool Occult Blood (ISAIAS) - Final Occult Blood Positive 08/07/22 15:30 Urine, Clean Catch Urine Culture - Final Pseudomonas fluorescens 08/07/22 15:33 Sputum, Tracheal Aspirate Gram Stain - Final 08/07/22 15:33 Sputum, Tracheal Aspirate Respiratory Culture - Final Mixed normal respiratory ny. No Streptococcus pneumoniae, beta-hemolytic Streptococcus or Staphylococcus aureus isolated. Rhythm Strip Rhythm Strip: Sinus Tach Rate: 120 Physical Exam Narrative Alert awake no obvious distress no pallor no icterus no JVD s1s2 no murmurs lungs clear abdomen soft no organomegaly +++ edema no cyanosis hameed + Const alert, oriented x3, no apparent distress and average body habitus Orientation / Consciousness: oriented to person and oriented to place HEENT normocephalic Neck no lymphadenopathy Resp no use of accessory muscles and clear to auscultation bilaterally Auscultation: rhonchi and diminished lung sounds bilateral throughout Cardio regular rate Cardio Narrative: Tachycardic GI non-tender Auscultation: normoactive bowel sounds Skin no rashes or lesions noted Neuro Sensorium / Orientation: awake, alert and sedated on vent Psych cooperative Assessment & Plan Assessment/Plan (1) Acute renal failure: PLAN: Baseline creatinine is around 1.5. Came in with acute renal failure, acidosis. Started on renal replacement therapy. last dialysis 08/17/22. Will maintain Wednesday, Wednesday, Wednesday schedule. She is scheduled as outpatient as well. Acidosis. Resolved today. hypokalemia. We have been using 3k solutions for dialysis. Continue same (2) Chronic kidney disease, stage 3b:
[2022-08-18 16:06] LABS: Absolute Lymphocyte Count 1.59 X10^3/uL (0.83-4.51); Absolute Neutrophil Count 8.3 X10^3/uL (2.0-7.7); Basophil# 0.04 X10^3/uL; Basophil% 0.4 % (0-1); Eosinophils% 1.8 % (0-5); Hematocrit 28.8 % (37-47); Hemoglobin 9.4 g/dL (12.0-15.0); Lymphocyte # 1.59 X10^3/ul (0.83-4.51); Lymphocyte % 14.2 % (19-41); Mean Corp Hgb Conc 32.6 g/dL (32-36); Mean Corpuscular Hgb 29.3 pg (27.0-32.0); Mean Corpuscular Volume 89.7 fL (81-99); Mean Platelet Vol. 10.3 fl (6.2-12.0); Monocyte# 0.86 X10^3/uL; Monocyte% 7.7 % (0-10); NRBC Flagged by Analyzer 0 % (0-5); Neutrophil # 8.32 X10^3/uL (2.7-7.7); Platelet Count 184 K/mm3 (150-450); RBC Distribution Width CV 15.5 % (11.6-14.6); RBC Distribution Width SD 50.2 fl (35.1-43.9); Red Blood Count 3.21 M/mm3 (4.2-5.4); White Blood Count 11.2 K/mm3 (4.4-11.0)
[2022-08-18 16:19] LABS: Anion Gap 7 (5-15); BUN 21 mg/dL (7-18); BUN/Creat Ratio 7.5 RATIO (10-20); Calcium,Total 7.9 mg/dL (8.5-10.1); Chloride 103 mmol/L (98-107); Creatinine, Serum 2.79 mg/dL (0.55-1.02); EST Glomerular Filtration Rate 19 mL/min (>60); Est Glom Filt Rate - Afr Amer 22 mL/min (>60); Estimated Creatinine Clearance 16.59 ml/min; Glucose 261 mg/dL (74-106); Potassium 3.4 mmol/L (3.5-5.1); Sodium Level 138 mmol/L (136-145)
[2022-08-18] MEDS: NEPRO TUBE FEED 1,000 ML 40 ML GT (18:36)
[2022-08-18 19:11] LABS: Bedside Glucose 249 mg/dL (74-106)
[2022-08-18] MEDS: Menthol/Lanolin/Calamine/Znox 113 GM Tube 1 APPLIC TOPICAL (20:13)
[2022-08-18] MEDS: Atorvastatin Calcium 20 MG Tablet GT (20:14)
[2022-08-19] VITALS (8 sets, daily range): BP systolic 112–142; BP diastolic 56–70; PULSE 74–89; RESP 16–20; TEMP 36.6–37.8; O2SAT 92–97; BMI 33.3
[2022-08-19] MEDS: Insulin Lispro 100 UNIT/ML INSULN.PEN SC ×5 (00:14→23:57)
[2022-08-19 03:35] LABS: Bedside Glucose 238 mg/dL (74-106)
[2022-08-19] MEDS: 0.9% Saline Lock 10 ML Syringe IV (06:16)
[2022-08-19] MEDS: Lactated Ringers 1,000 ML 15 ML IV (06:16)
[2022-08-19 06:55] LABS: Bedside Glucose 240 mg/dL (74-106)
[2022-08-19 07:21] LABS: Absolute Lymphocyte Count 1.49 X10^3/uL (0.83-4.51); Absolute Neutrophil Count 8.8 X10^3/uL (2.0-7.7); Basophil# 0.03 X10^3/uL; Basophil% 0.3 % (0-1); Eosinophil# 0.19 X10^3/uL; Eosinophils% 1.7 % (0-5); Hematocrit 28.7 % (37-47); Hemoglobin 9.5 g/dL (12.0-15.0); Lymphocyte # 1.49 X10^3/ul (0.83-4.51); Mean Corp Hgb Conc 33.1 g/dL (32-36); Mean Corpuscular Hgb 28.4 pg (27.0-32.0); Mean Corpuscular Volume 85.9 fL (81-99); Mean Platelet Vol. 10.8 fl (6.2-12.0); Monocyte# 0.81 X10^3/uL; NRBC Flagged by Analyzer 0 % (0-5); Neutrophil # 8.76 X10^3/uL (2.7-7.7); Neutrophil % 76.1 % (47-70); POSITIVE COUNT YES; RBC Distribution Width CV 14.9 % (11.6-14.6); RBC Distribution Width SD 46.1 fl (35.1-43.9); Red Blood Count 3.34 M/mm3 (4.2-5.4); White Blood Count 11.5 K/mm3 (4.4-11.0)
[2022-08-19 07:25] LABS: Differential Indicated SCAN CRITERIA MET
--- NOTE | 2022-08-19 08:46 | CASEMGMT ---
JANEL noted that patient now has a wound. JANEL sent wound care orders and wound RN notes to [facility] via [employer] [facility]. JANEL received a message to call Barbara, patient's registered nurse hh case manager with [facility] regarding patient's 's concerns. JANEL called Barbara. Introduced self and role at [facility]. Barbara said patient's would like to be kept up to date. JANEL told Barbara ISLAS could see if the RN or physician could call him about patient's medical care and JANEL could call him regarding d/c plans. Barbara said he is aware patient will be going to [facility]. Barbara said phone call to patient's from RN or physician would be appreciated. JANEL will notify RN and physician. Plan: [facility] pending insurance approval and 08-21. Carolynn CAPPS
[2022-08-19 08:59] LABS: Differential Comment SCANNED; Platelet Estimate ADEQUATE (ADEQ)
[2022-08-19 09:04] LABS: Anion Gap 7 (5-15); BUN 29 mg/dL (7-18); BUN/Creat Ratio 9.4 RATIO (10-20); Calcium,Total 7.8 mg/dL (8.5-10.1); Chloride 101 mmol/L (98-107); EST Glomerular Filtration Rate 16 mL/min (>60); Est Glom Filt Rate - Afr Amer 20 mL/min (>60); Estimated Creatinine Clearance 14.93 ml/min; Glucose 251 mg/dL (74-106); Potassium 3.1 mmol/L (3.5-5.1); Sodium Level 138 mmol/L (136-145)
--- NOTE | 2022-08-19 09:43 | CASEMGMT ---
SW spoke with RN and let her know 's concerns with keeping updated. SW asked if she has time to contact patient's to updated him. Carolynn CAPPS
--- NOTE | 2022-08-19 11:20 | CASEMGMT ---
JANEL called patient's Deep. JANEL updated Deep on patient's discharge plan. JANEL also let him know this would likely take place on Wednesday due to transportation. JANEL let Deep know that JANEL did pass a message along to the RN to see if she could call him to update him regarding patient's medical care. Deep thanked JANEL. Plan: d/c to [facility]. Carolynn CAPPS
--- NOTE | 2022-08-19 11:24 | PCM.PN.REN ---
Subjective Subjective No new complain Objective Data Objective Data Vital Signs: Vital Signs Temp Pulse Resp BP Pulse Ox O2 Del Method O2 Flow Rate 98.5 F 74 16 142/56 H 97 Room Air 2 08/19/22 09:04 08/19/22 09:04 08/19/22 09:04 08/19/22 09:04 08/19/22 09:04 08/19/22 09:04 08/19/22 08:03 FiO2 45 08/13/22 02:00 Oxygen Flow Rate (L/min) 2 Oxygen Delivery Method Room Air Weight: 82 kg Body Mass Index (BMI) 33.3 Intake & Output: Intake and Output for Last 24 Hours 08/17/22 08/18/22 08/19/22 23:59 23:59 23:59 Intake Total 1413 / 1413 1600 / 1600 0 / 0 Output Total 1800 / 1800 Balance -387 / -387 1600 / 1600 0 / 0 Lab / Micro Data Result Diagrams: 08/19/22 07:05 08/19/22 08:30 Labs: Laboratory Results - last 24 hr 08/18/22 12:08: POC Glucose 235 H 08/18/22 15:40: WBC 11.2 H, RBC 3.21 L, Hgb 9.4 L, Hct 28.8 L, MCV 89.7 D, MCH 29.3, MCHC 32.6, RDW Std Deviation 50.2 H, RDW Coeff of Jacqueline 15.5 H, Plt Count 184, MPV 10.3, Immature Gran % (Auto) 1.900 H, Neut % (Auto) 74.0 H, Lymph % (Auto) 14.2 L, [place] % (Auto) 7.7, Eos % (Auto) 1.8, Baso % (Auto) 0.4, Absolute Neuts (auto) 8.3 H, Absolute Lymphs (auto) 1.59, Nucleated RBC % 0 08/18/22 15:40: Sodium 138, Potassium 3.4 L, Chloride 103, Carbon Dioxide 28.0, Anion Gap 7, BUN 21 H, Creatinine 2.79 H, Estim Creat Clear Calc 16.59, Est GFR (MDRD) Af Amer 22 L, Est GFR (MDRD) Non-Af 19 L, BUN/Creatinine Ratio 7.5 L, Glucose 261 H, Calcium 7.9 L 08/18/22 18:40: POC Glucose 249 H 08/19/22 00:13: POC Glucose 238 H 08/19/22 06:12: POC Glucose 240 H 08/19/22 07:05: WBC 11.5 H, RBC 3.34 L, Hgb 9.5 L, Hct 28.7 L, MCV 85.9, MCH 28.4, MCHC 33.1, RDW Std Deviation 46.1 H, RDW Coeff of Jacqueline 14.9 H, MPV 10.8, Immature Gran % (Auto) 1.900 H, Neut % (Auto) 76.1 H, Lymph % (Auto) 13.0 L, [place] % (Auto) 7.0, Eos % (Auto) 1.7, Baso % (Auto) 0.3, Absolute Neuts (auto) 8.8 H, Absolute Lymphs (auto) 1.49, Nucleated RBC % 0, Differential Comment SCANNED, Platelet Estimate ADEQUATE 08/19/22 07:05: Sodium Cancelled, Potassium Cancelled, Chloride Cancelled, Carbon Dioxide Cancelled, Anion Gap Cancelled, BUN Cancelled, Creatinine Cancelled, Estim Creat Clear Calc Cancelled, Est GFR (MDRD) Af Amer Cancelled, Est GFR (MDRD) Non-Af Cancelled, BUN/Creatinine Ratio Cancelled, Glucose Cancelled, Calcium Cancelled 08/19/22 08:30: Sodium 138, Potassium 3.1 L, Chloride 101, Carbon Dioxide 30.0, Anion Gap 7, BUN 29 H, Creatinine 3.10 H, Estim Creat Clear Calc 14.93, Est GFR (MDRD) Af Amer 20 L, Est GFR (MDRD) Non-Af 16 L, BUN/Creatinine Ratio 9.4 L, Glucose 251 H, Calcium 7.8 L Micro: Microbiology 08/07/22 16:45 Blood Culture (Wb) - Right Wrist Blood Culture - Final No growth in 5 days. 08/07/22 16:50 Blood Culture (Wb) - Left Foot Blood Culture - Final No growth in 5 days. 08/11/22 01:10 Stool C. difficile DNA Amplification - Final 08/10/22 12:00 Stool Stool Occult Blood (ISAIAS) - Final Occult Blood Positive 08/07/22 15:30 Urine, Clean Catch Urine Culture - Final Pseudomonas fluorescens 08/07/22 15:33 Sputum, Tracheal Aspirate Gram Stain - Final 08/07/22 15:33 Sputum, Tracheal Aspirate Respiratory Culture - Final Mixed normal respiratory ny. No Streptococcus pneumoniae, beta-hemolytic Streptococcus or Staphylococcus aureus isolated. Rhythm Strip Rhythm Strip: Sinus Tach Rate: 120 Physical Exam Narrative Alert awake no obvious distress no pallor no icterus no JVD s1s2 no murmurs lungs clear abdomen soft no organomegaly +++ edema no cyanosis hameed + Const alert, oriented x3, no apparent distress and average body habitus Orientation / Consciousness: oriented to person and oriented to place HEENT normocephalic Neck no lymphadenopathy Resp no use of accessory muscles and clear to auscultation bilaterally Auscultation: rhonchi and diminished lung sounds bilateral throughout Cardio regular rate Cardio Narrative: Tachycardic GI non-tender Auscultation: normoactive bowel sounds Skin no rashes or lesions noted Neuro Sensorium / Orientation: awake, alert and sedated on vent Psych cooperative Assessment & Plan Assessment/Plan (1) Acute renal failure: PLAN: Baseline creatinine is around 1.5. Came in with acute renal failure, acidosis. Started on renal replacement therapy. Will maintain Wednesday, Wednesday, Wednesday schedule. She is scheduled as outpatient as well. Seen on dialysis today. Appears edematous. May need extra UF treatments. Not tolerating aggressive fluid removal in dialysis. We will follow up on discharge plans. Acidosis. Resolved today. hypokalemia. We have been using 3k solutions for dialysis. Continue same (2) Chronic kidney disease, stage 3b:
[2022-08-19] MEDS: Menthol/Lanolin/Calamine/Znox 113 GM Tube 1 APPLIC TOPICAL ×2 (13:15→22:22)
[2022-08-19] MEDS: Potassium Chloride Oral Soln 20 MEQ/15 ML UDC 40 MEQ PO (13:16)
[2022-08-19] MEDS: levETIRAcetam Oral Solution 500 MG/5 ML GT ×2 (13:17→22:21)
[2022-08-19] MEDS: Insulin Glargine-YFGN 100 UNIT/ML Pen 10 UNIT SC (13:17)
[2022-08-19] MEDS: Cholecalciferol (VIT D3) 25 MCG TABLET (1,000 UNITS) 50 MCG GT (13:18)
[2022-08-19] MEDS: Lansoprazole 15 MG Capsule.DR 30 MG GT ×2 (13:18→22:22)
[2022-08-19] MEDS: lamoTRIgine 25 MG Tablet GT (13:18)
[2022-08-19] MEDS: Cyanocobalamin 500 MCG Tablet 1000 MCG GT (13:18)
--- NOTE | 2022-08-19 13:26 | PN.HOSP_ITS ---
Subjective Subjective Doing much better today, feeling much better today Objective Data Objective Data Vital Signs: Vital Signs Temp Pulse Resp BP Pulse Ox O2 Del Method O2 Flow Rate 97.8 F 86 16 132/70 H 94 Nasal Cannula 1 08/19/22 13:11 08/19/22 13:11 08/19/22 13:11 08/19/22 13:11 08/19/22 13:11 08/19/22 13:11 08/19/22 13:11 FiO2 45 08/13/22 02:00 Oxygen Flow Rate (L/min) 1 Oxygen Delivery Method Nasal Cannula Weight: 180 lb 12.465 oz Body Mass Index (BMI) 33.3 Intake & Output: Intake and Output for Last 24 Hours 08/18/22 08/19/22 08/20/22 03:59 03:59 03:59 Intake Total 1413 / 1413 1600 / 1600 2749 / 2749 Output Total 1700 / 1700 2500 / 2500 Balance -287 / -287 1600 / 1600 249 / 249 Lab / Micro Data Result Diagrams: 08/19/22 07:05 08/19/22 08:30 Labs: Laboratory Results - last 24 hr 08/18/22 15:40: WBC 11.2 H, RBC 3.21 L, Hgb 9.4 L, Hct 28.8 L, MCV 89.7 D, MCH 29.3, MCHC 32.6, RDW Std Deviation 50.2 H, RDW Coeff of Jacqueline 15.5 H, Plt Count 184, MPV 10.3, Immature Gran % (Auto) 1.900 H, Neut % (Auto) 74.0 H, Lymph % (Auto) 14.2 L, [place] % (Auto) 7.7, Eos % (Auto) 1.8, Baso % (Auto) 0.4, Absolute Neuts (auto) 8.3 H, Absolute Lymphs (auto) 1.59, Nucleated RBC % 0 08/18/22 15:40: Sodium 138, Potassium 3.4 L, Chloride 103, Carbon Dioxide 28.0, Anion Gap 7, BUN 21 H, Creatinine 2.79 H, Estim Creat Clear Calc 16.59, Est GFR (MDRD) Af Amer 22 L, Est GFR (MDRD) Non-Af 19 L, BUN/Creatinine Ratio 7.5 L, Glucose 261 H, Calcium 7.9 L 08/18/22 18:40: POC Glucose 249 H 08/19/22 00:13: POC Glucose 238 H 08/19/22 06:12: POC Glucose 240 H 08/19/22 07:05: WBC 11.5 H, RBC 3.34 L, Hgb 9.5 L, Hct 28.7 L, MCV 85.9, MCH 28.4, MCHC 33.1, RDW Std Deviation 46.1 H, RDW Coeff of Jacqueline 14.9 H, MPV 10.8, Immature Gran % (Auto) 1.900 H, Neut % (Auto) 76.1 H, Lymph % (Auto) 13.0 L, [place] % (Auto) 7.0, Eos % (Auto) 1.7, Baso % (Auto) 0.3, Absolute Neuts (auto) 8.8 H, Absolute Lymphs (auto) 1.49, Nucleated RBC % 0, Differential Comment SCANNED, Platelet Estimate ADEQUATE 08/19/22 07:05: Sodium Cancelled, Potassium Cancelled, Chloride Cancelled, Carbon Dioxide Cancelled, Anion Gap Cancelled, BUN Cancelled, Creatinine Cancelled, Estim Creat Clear Calc Cancelled, Est GFR (MDRD) Af Amer Cancelled, Est GFR (MDRD) Non-Af Cancelled, BUN/Creatinine Ratio Cancelled, Glucose Cancelled, Calcium Cancelled 08/19/22 08:30: Sodium 138, Potassium 3.1 L, Chloride 101, Carbon Dioxide 30.0, Anion Gap 7, BUN 29 H, Creatinine 3.10 H, Estim Creat Clear Calc 14.93, Est GFR (MDRD) Af Amer 20 L, Est GFR (MDRD) Non-Af 16 L, BUN/Creatinine Ratio 9.4 L, Glucose 251 H, Calcium 7.8 L Micro: Microbiology 08/07/22 16:45 Blood Culture (Wb) - Right Wrist Blood Culture - Final No growth in 5 days. 08/07/22 16:50 Blood Culture (Wb) - Left Foot Blood Culture - Final No growth in 5 days. 08/11/22 01:10 Stool C. difficile DNA Amplification - Final 08/10/22 12:00 Stool Stool Occult Blood (ISAIAS) - Final Occult Blood Positive 08/07/22 15:30 Urine, Clean Catch Urine Culture - Final Pseudomonas fluorescens 08/07/22 15:33 Sputum, Tracheal Aspirate Gram Stain - Final 08/07/22 15:33 Sputum, Tracheal Aspirate Respiratory Culture - Final Mixed normal respiratory ny. No Streptococcus pneumoniae, beta-hemolytic Streptococcus or Staphylococcus aureus isolated. Rhythm Strip Rhythm Strip: Sinus Tach Rate: 120 Physical Exam Narrative General: Alert, Oriented x3, Cooperative, No apparent distress HEENT: Atraumatic, PERRLA, EOMI, Normocephalic Oral: Moist Mucosa Neck: Supple, No JVD, right tunneled catheter Lungs: Clear to auscultation, Normal air movement, No rhonchi, No wheeze, No rales Cardiovascular: Regular rate, Regular Rhythm, Normal S1, Normal S2, No murmurs Abdomen: Soft, Non Tender, Non-Distended, No Hepato-splenomegaly, PEG tube in place Extremities: Edema, Capillary Refill Less than 3 Seconds Skin: No rashes, No breakdown Musculoskeletal: No Tenderness to Palpation of Joints or Extremities Neurological: Moves all extremities, sensation intact Psych/Mental Status: Normal affect, Appropriate Assessment & Plan Assessment/Plan (1) Acute hypotension: (2) Shock: (3) Metabolic acidosis: (4) Toxic metabolic encephalopathy: (5) Acute respiratory failure with hypoxia and hypercapnia: (6) Hypothermia: (7) Vitamin D deficiency: (8) Lactic acidosis: (9) Acute renal failure: (10) Bradycardia: (11) Acute respiratory failure with hypoxia: (12) Hypomagnesemia: (13) Anemia: (14) Thrombocytopenia: (15) Hypokalemia: PLAN: Plan 1. Acute respiratory failure with an anion gap metabolic acidosis/shock unknown etiology/MARY on CKD 3B/dysphagia/toxic versus metabolic encephalopathy ? Unsure as to the etiology of shock however this has resolved and she is not currently on any pressors ? She was intubated on admission on 08/07/2022 and extubated on 08/11/2022 she is maintaining her oxygen sats currently at 1-2 L nasal cannula ? Her ethylene glycol test was negative but her metformin was significantly elevated at 32 mcg/mL ? Appreciate nephrology's assistance continue with dialysis, she did have a right tunneled catheter placed today ? Had PEG tube placed on 08/15/2022 we will continue to feed via PEG tube secondary to her failure on her modified barium swallow on 08/13/2022 2. Acute anemia/thrombocytopenia/GERD ? She did receive multiple red blood cell transfusions, currently down to 8.9, attempting to recheck today ? We will continue to monitor continue with PPI ? EGD done on 08/14/2022 states that she possibly had dehiscence of her previous gastric bypass surgery ? Thrombocytopenia resolved, however HIT panel is negative 3. DM2/pancreatic insufficiency ? Continue with insulin ? Accu-Cheks ACHS ? We will make adjustments as necessary and continue to monitor ? Continue with Creon 4. Hypertension ? Blood pressures are stable, will continue to hold pressure medications 5. Seizure disorder/chronic headaches ? Stable ? Continue with her home medications 6. Depression ? Stable neck ? Unable to get her medications as they cannot be crushed via the PEG tube DVT: SCDs Charges/Coding Visit Charges Inpatient E&M: 04231 Subs Hosp L2
[2022-08-19 13:41] LABS: Bedside Glucose 200 mg/dL (74-106)
[2022-08-19 18:55] LABS: Bedside Glucose 251 mg/dL (74-106)
[2022-08-19] MEDS: NEPRO TUBE FEED 1,000 ML 40 ML GT (18:59)
[2022-08-19] MEDS: Atorvastatin Calcium 20 MG Tablet GT (22:21)
[2022-08-20] VITALS (7 sets, daily range): BP systolic 126–137; BP diastolic 60–65; PULSE 74–84; RESP 14–16; TEMP 36.7–37; O2SAT 92–97; BMI 33.4
[2022-08-20 00:25] LABS: Bedside Glucose 202 mg/dL (74-106)
[2022-08-20] MEDS: Insulin Lispro 100 UNIT/ML INSULN.PEN SC ×3 (06:05→18:04)
[2022-08-20 06:45] LABS: Bedside Glucose 233 mg/dL (74-106)
[2022-08-20 06:47] LABS: Absolute Lymphocyte Count 1.66 X10^3/uL (0.83-4.51); Absolute Neutrophil Count 6.9 X10^3/uL (2.0-7.7); Basophil# 0.07 X10^3/uL; Basophil% 0.7 % (0-1); Eosinophil# 0.12 X10^3/uL; Eosinophils% 1.3 % (0-5); Hematocrit 28.4 % (37-47); Hemoglobin 9.2 g/dL (12.0-15.0); Lymphocyte # 1.66 X10^3/ul (0.83-4.51); Lymphocyte % 17.4 % (19-41); Mean Corp Hgb Conc 32.4 g/dL (32-36); Mean Corpuscular Hgb 28.5 pg (27.0-32.0); Mean Corpuscular Volume 87.9 fL (81-99); Mean Platelet Vol. 10.6 fl (6.2-12.0); Monocyte# 0.66 X10^3/uL; Monocyte% 6.9 % (0-10); NRBC Flagged by Analyzer 0 % (0-5); Neutrophil # 6.87 X10^3/uL (2.7-7.7); POSITIVE COUNT YES; Platelet Count 185 K/mm3 (150-450); RBC Distribution Width CV 15.6 % (11.6-14.6); RBC Distribution Width SD 49.1 fl (35.1-43.9); Red Blood Count 3.23 M/mm3 (4.2-5.4); White Blood Count 9.5 K/mm3 (4.4-11.0)
[2022-08-20 06:52] LABS: Differential Indicated SCAN CRITERIA MET
[2022-08-20 07:03] LABS: Anion Gap 9 (5-15); BUN 22 mg/dL (7-18); BUN/Creat Ratio 8.9 RATIO (10-20); Calcium,Total 7.8 mg/dL (8.5-10.1); Chloride 102 mmol/L (98-107); Creatinine, Serum 2.47 mg/dL (0.55-1.02); EST Glomerular Filtration Rate 21 mL/min (>60); Est Glom Filt Rate - Afr Amer 26 mL/min (>60); Estimated Creatinine Clearance 18.73 ml/min; Glucose 252 mg/dL (74-106); Sodium Level 139 mmol/L (136-145)
[2022-08-20 07:10] LABS: Differential Comment SCANNED
[2022-08-20 07:11] LABS: Anisocytosis 1+; Platelet Estimate ADEQUATE (ADEQ)
[2022-08-20] MEDS: levETIRAcetam Oral Solution 500 MG/5 ML GT (08:51)
[2022-08-20] MEDS: Creon 12,000 unit DR CapSULE 3 CAP PO ×3 (08:51→17:58)
[2022-08-20] MEDS: Cholecalciferol (VIT D3) 25 MCG TABLET (1,000 UNITS) 50 MCG GT (08:52)
[2022-08-20] MEDS: lamoTRIgine 25 MG Tablet GT (08:52)
[2022-08-20] MEDS: Lansoprazole 15 MG Capsule.DR 30 MG GT (08:52)
[2022-08-20] MEDS: Cyanocobalamin 500 MCG Tablet 1000 MCG GT (08:53)
[2022-08-20] MEDS: Menthol/Lanolin/Calamine/Znox 113 GM Tube 1 APPLIC TOPICAL (08:53)
[2022-08-20] MEDS: Insulin Glargine-YFGN 100 UNIT/ML Pen 10 UNIT SC (08:54)
--- NOTE | 2022-08-20 09:32 | PCM.PN.HOSP ---
Subjective Subjective Doing well today no issues overnight Objective Data Objective Data Vital Signs: Vital Signs Temp Pulse Resp BP Pulse Ox O2 Del Method O2 Flow Rate 98.6 F 74 14 133/65 H 93 Room Air 1 08/20/22 08:47 08/20/22 08:47 08/20/22 08:47 08/20/22 08:47 08/20/22 08:47 08/20/22 08:47 08/19/22 13:11 FiO2 45 08/13/22 02:00 Oxygen Flow Rate (L/min) 1 Oxygen Delivery Method Room Air Weight: 181 lb 10.574 oz Body Mass Index (BMI) 33.4 Intake & Output: Intake and Output for Last 24 Hours 08/19/22 08/20/22 08/21/22 03:59 03:59 03:59 Intake Total 1600 / 1600 4200.33 / 4200.33 Output Total 2500 / 2500 Balance 1600 / 1600 1700.33 / 1700.33 Lab / Micro Data Result Diagrams: 08/20/22 06:40 08/20/22 06:40 Labs: Laboratory Results - last 24 hr 08/19/22 07:05: Plt Count TNP 08/19/22 13:08: POC Glucose 200 H 08/19/22 18:34: POC Glucose 251 H 08/19/22 23:56: POC Glucose 202 H 08/20/22 06:04: POC Glucose 233 H 08/20/22 06:40: WBC 9.5, RBC 3.23 L, Hgb 9.2 L, Hct 28.4 L, MCV 87.9, MCH 28.5, MCHC 32.4, RDW Std Deviation 49.1 H, RDW Coeff of Jacqueline 15.6 H, Plt Count 185, MPV 10.6, Immature Gran % (Auto) 1.700 H, Neut % (Auto) 72.0 H, Lymph % (Auto) 17.4 L, [place] % (Auto) 6.9, Eos % (Auto) 1.3, Baso % (Auto) 0.7, Absolute Neuts (auto) 6.9, Absolute Lymphs (auto) 1.66, Nucleated RBC % 0, Differential Comment SCANNED, Platelet Estimate ADEQUATE, Anisocytosis 1+ 08/20/22 06:40: Sodium 139, Potassium 5.0, Chloride 102, Carbon Dioxide 28.0, Anion Gap 9, BUN 22 H, Creatinine 2.47 H, Estim Creat Clear Calc 18.73, Est GFR (MDRD) Af Amer 26 L, Est GFR (MDRD) Non-Af 21 L, BUN/Creatinine Ratio 8.9 L, Glucose 252 H, Calcium 7.8 L, Phosphorus 2.0 L, Magnesium 2.0 Micro: Microbiology 08/07/22 16:45 Blood Culture (Wb) - Right Wrist Blood Culture - Final No growth in 5 days. 08/07/22 16:50 Blood Culture (Wb) - Left Foot Blood Culture - Final No growth in 5 days. 08/11/22 01:10 Stool C. difficile DNA Amplification - Final 08/10/22 12:00 Stool Stool Occult Blood (ISAIAS) - Final Occult Blood Positive 08/07/22 15:30 Urine, Clean Catch Urine Culture - Final Pseudomonas fluorescens 08/07/22 15:33 Sputum, Tracheal Aspirate Gram Stain - Final 08/07/22 15:33 Sputum, Tracheal Aspirate Respiratory Culture - Final Mixed normal respiratory ny. No Streptococcus pneumoniae, beta-hemolytic Streptococcus or Staphylococcus aureus isolated. Rhythm Strip Rhythm Strip: Sinus Tach Rate: 120 Physical Exam Narrative General: Alert, Oriented x3, Cooperative, No apparent distress HEENT: Atraumatic, PERRLA, EOMI, Normocephalic Oral: Moist Mucosa Neck: Supple, No JVD, right tunneled catheter Lungs: Diminished, Normal air movement, No rhonchi, No wheeze, No rales Cardiovascular: Regular rate, Regular Rhythm, Normal S1, Normal S2, No murmurs Abdomen: Soft, Non Tender, Non-Distended, No Hepato-splenomegaly, PEG tube in place Extremities: Edema, Capillary Refill Less than 3 Seconds Skin: No rashes, No breakdown Musculoskeletal: No Tenderness to Palpation of Joints or Extremities Neurological: Moves all extremities, sensation intact Psych/Mental Status: Normal affect, Appropriate Assessment & Plan Assessment/Plan (1) Acute hypotension: (2) Shock: (3) Metabolic acidosis: (4) Toxic metabolic encephalopathy: (5) Acute respiratory failure with hypoxia and hypercapnia: (6) Hypothermia: (7) Vitamin D deficiency: (8) Lactic acidosis: (9) Acute renal failure: (10) Bradycardia: (11) Acute respiratory failure with hypoxia: (12) Hypomagnesemia: (13) Anemia: (14) Thrombocytopenia: (15) Hypokalemia: PLAN: Plan 1. Acute respiratory failure with an anion gap metabolic acidosis/shock unknown etiology/MARY on CKD 3B/dysphagia/toxic and metabolic encephalopathy ? Unsure as to the etiology of shock however this has resolved and she is not currently on any pressors ? She was intubated on admission on 08/07/2022 and extubated on 08/11/2022 she is maintaining her oxygen sats currently at 1-2 L nasal cannula ? Her ethylene glycol test was negative but her metformin was significantly elevated at 32 mcg/mL ? Appreciate nephrology's assistance continue with dialysis, she did have a right tunneled catheter placed today ? Had PEG tube placed on 08/15/2022 we will continue to feed via PEG tube secondary to her failure on her modified barium swallow on 08/13/2022 2. Acute anemia/thrombocytopenia/GERD ? She did receive multiple red blood cell transfusions, currently down to 8.9, attempting to recheck today ? We will continue to monitor continue with PPI ? EGD done on 08/14/2022 states that she possibly had dehiscence of her previous gastric bypass surgery ? Thrombocytopenia resolved, however HIT panel is negative 3. DM2/pancreatic insufficiency ? Continue with insulin ? Accu-Cheks ACHS ? We will make adjustments as necessary and continue to monitor ? Continue with Creon 4. Hypertension ? Blood pressures are stable, will continue to hold pressure medications 5. Seizure disorder/chronic headaches ? Stable ? Continue with her home medications 6. Depression ? Stable neck ? Unable to get her medications as they cannot be crushed via the PEG tube DVT: SCDs Charges/Coding Visit Charges Inpatient E&M: 63530 Subs Hosp L2
--- NOTE | 2022-08-20 10:31 | CASEMGMT ---
SW received a message from [facility] via [employer]. that patient was approved. However, patient cannot go to [facility] until Wednesday after dialysis due to transportation issues. Plan: d/c to [facility] Wednesday08-21-22 under skilled level of care. Carolynn Pino LEATHER [employer] JEFRY
--- NOTE | 2022-08-20 12:05 | CASEMGMT ---
SW sent check clerk's note with tube feed recommendations to [facility] via [employer]. Carolynn CAPPS
[2022-08-20 12:10] LABS: Bedside Glucose 230 mg/dL (74-106)
--- NOTE | 2022-08-20 13:53 | PCM.PN.REN ---
Subjective Subjective no new events Objective Data Objective Data Vital Signs: Vital Signs Temp Pulse Resp BP Pulse Ox O2 Del Method O2 Flow Rate 98.6 F 74 14 133/65 H 92 Room Air 1 08/20/22 08:47 08/20/22 08:47 08/20/22 08:47 08/20/22 08:47 08/20/22 12:32 08/20/22 09:39 08/19/22 13:11 FiO2 45 08/13/22 02:00 Oxygen Flow Rate (L/min) 1 Oxygen Delivery Method Room Air Weight: 82.4 kg Body Mass Index (BMI) 33.4 Intake & Output: Intake and Output for Last 24 Hours 08/18/22 08/19/22 08/20/22 23:59 23:59 23:59 Intake Total 1600 / 1600 4200.33 / 4200.33 175 / 175 Output Total 2500 / 2500 Balance 1600 / 1600 1700.33 / 1700.33 175 / 175 Lab / Micro Data Result Diagrams: 08/20/22 06:40 08/20/22 06:40 Labs: Laboratory Results - last 24 hr 08/19/22 07:05: Plt Count TNP 08/19/22 18:34: POC Glucose 251 H 08/19/22 23:56: POC Glucose 202 H 08/20/22 06:04: POC Glucose 233 H 08/20/22 06:40: WBC 9.5, RBC 3.23 L, Hgb 9.2 L, Hct 28.4 L, MCV 87.9, MCH 28.5, MCHC 32.4, RDW Std Deviation 49.1 H, RDW Coeff of Jacqueline 15.6 H, Plt Count 185, MPV 10.6, Immature Gran % (Auto) 1.700 H, Neut % (Auto) 72.0 H, Lymph % (Auto) 17.4 L, [place] % (Auto) 6.9, Eos % (Auto) 1.3, Baso % (Auto) 0.7, Absolute Neuts (auto) 6.9, Absolute Lymphs (auto) 1.66, Nucleated RBC % 0, Differential Comment SCANNED, Platelet Estimate ADEQUATE, Anisocytosis 1+ 08/20/22 06:40: Sodium 139, Potassium 5.0, Chloride 102, Carbon Dioxide 28.0, Anion Gap 9, BUN 22 H, Creatinine 2.47 H, Estim Creat Clear Calc 18.73, Est GFR (MDRD) Af Amer 26 L, Est GFR (MDRD) Non-Af 21 L, BUN/Creatinine Ratio 8.9 L, Glucose 252 H, Calcium 7.8 L, Phosphorus 2.0 L, Magnesium 2.0 08/20/22 11:52: POC Glucose 230 H Micro: Microbiology 08/07/22 16:45 Blood Culture (Wb) - Right Wrist Blood Culture - Final No growth in 5 days. 08/07/22 16:50 Blood Culture (Wb) - Left Foot Blood Culture - Final No growth in 5 days. 08/11/22 01:10 Stool C. difficile DNA Amplification - Final 08/10/22 12:00 Stool Stool Occult Blood (ISAIAS) - Final Occult Blood Positive 08/07/22 15:30 Urine, Clean Catch Urine Culture - Final Pseudomonas fluorescens 08/07/22 15:33 Sputum, Tracheal Aspirate Gram Stain - Final 08/07/22 15:33 Sputum, Tracheal Aspirate Respiratory Culture - Final Mixed normal respiratory ny. No Streptococcus pneumoniae, beta-hemolytic Streptococcus or Staphylococcus aureus isolated. Rhythm Strip Rhythm Strip: Sinus Tach Rate: 120 Physical Exam Narrative Alert awake no obvious distress no pallor no icterus no JVD s1s2 no murmurs lungs clear abdomen soft no organomegaly +++ edema no cyanosis Const alert, oriented x3, no apparent distress and average body habitus Orientation / Consciousness: oriented to person and oriented to place HEENT normocephalic Neck no lymphadenopathy Resp no use of accessory muscles and clear to auscultation bilaterally Auscultation: rhonchi and diminished lung sounds bilateral throughout Cardio regular rate Cardio Narrative: Tachycardic GI non-tender Auscultation: normoactive bowel sounds Skin no rashes or lesions noted Neuro Sensorium / Orientation: awake, alert and sedated on vent Psych cooperative Assessment & Plan Assessment/Plan (1) Acute renal failure: PLAN: Baseline creatinine is around 1.5. Came in with acute renal failure, acidosis. Started on renal replacement therapy. Will maintain Wednesday, Wednesday, Wednesday schedule. She is scheduled as outpatient as well. Acidosis. Resolved today. hypokalemia. We have been using 3k solutions for dialysis. (2) Chronic kidney disease, stage 3b:
[2022-08-20] MEDS: NEPRO TUBE FEED 1,000 ML 40 ML GT (17:58)
[2022-08-20] MEDS: Acetaminophen 500 MG Tablet PO (18:10)
[2022-08-20 18:25] LABS: Bedside Glucose 216 mg/dL (74-106)
[2022-08-21] MEDS: Menthol/Lanolin/Calamine/Znox 113 GM Tube 1 APPLIC TOPICAL ×2 (00:05→13:51)
[2022-08-21] MEDS: Lansoprazole 15 MG Capsule.DR 30 MG GT ×2 (00:08→13:52)
[2022-08-21] MEDS: levETIRAcetam Oral Solution 500 MG/5 ML GT ×2 (00:12→13:51)
[2022-08-21] MEDS: Atorvastatin Calcium 20 MG Tablet GT (00:15)
[2022-08-21] MEDS: Insulin Lispro 100 UNIT/ML INSULN.PEN SC ×4 (00:25→17:48)
[2022-08-21] MEDS: Lactated Ringers 1,000 ML 15 ML IV (00:27)
[2022-08-21 02:36] LABS: Bedside Glucose 278 mg/dL (74-106)
[2022-08-21 03:15] VITALS: BP 144/69; PULSE 82; RESP 16; TEMP 36.7; O2SAT 92
[2022-08-21 06:00] VITALS: BMI 33.9
[2022-08-21 07:00] LABS: Bedside Glucose 280 mg/dL (74-106)
[2022-08-21 07:50] VITALS: O2SAT 94
[2022-08-21 08:15] VITALS: BP 134/70; PULSE 73; RESP 18; TEMP 36.7; O2SAT 94
[2022-08-21 09:26] LABS: Absolute Neutrophil Count 6.7 X10^3/uL (2.0-7.7); Basophil# 0.04 X10^3/uL; Basophil% 0.4 % (0-1); Eosinophil# 0.09 X10^3/uL; Hemoglobin 8.9 g/dL (12.0-15.0); Lymphocyte % 17.4 % (19-41); Mean Corpuscular Hgb 28.7 pg (27.0-32.0); Mean Corpuscular Volume 87.1 fL (81-99); Monocyte# 0.64 X10^3/uL; NRBC Flagged by Analyzer 0 % (0-5); Neutrophil # 6.74 X10^3/uL (2.7-7.7); Neutrophil % 73.4 % (47-70); Platelet Count 274 K/mm3 (150-450); RBC Distribution Width CV 15.4 % (11.6-14.6); RBC Distribution Width SD 48.1 fl (35.1-43.9); White Blood Count 9.2 K/mm3 (4.4-11.0)
[2022-08-21 09:48] LABS: Anion Gap 8 (5-15); BUN 29 mg/dL (7-18); BUN/Creat Ratio 9.8 RATIO (10-20); Calcium,Total 8.2 mg/dL (8.5-10.1); Chloride 98 mmol/L (98-107); Creatinine, Serum 2.97 mg/dL (0.55-1.02); EST Glomerular Filtration Rate 17 mL/min (>60); Est Glom Filt Rate - Afr Amer 21 mL/min (>60); Estimated Creatinine Clearance 15.58 ml/min; Glucose 308 mg/dL (74-106); Potassium 3.5 mmol/L (3.5-5.1); Sodium Level 138 mmol/L (136-145)
--- NOTE | 2022-08-21 12:38 | DIALYSIS ---
3.5 hour treatment completed. 45min as IUF. UF total 2700 ml. VSS. patient tolerated well. See dialysis document.
[2022-08-21 12:40] LABS: Bedside Glucose 246 mg/dL (74-106)
--- NOTE | 2022-08-21 13:08 | PCM.TXEXTCAR ---
Diet Diet Order/Speech Therapy: 08/17/22 10:00 NPO [Diet: Nothing Per Oral] Is pt able to select menu?: Yes Diet Comments: ice chips sparingly (5-10, 3-5X/day), supervise to ensure pt maintains SpO2 Routine Orders/Code Status Routine Lab Work: CBC and BMP Code Status: Full Code Wound(s) coccyx: Wound Type: Pressure Injury Dressing Change: Mepilex L groin- prev puncture site from HD catheter: Wound Type: Puncture abd: Wound Type: Surgical Incision rt chest: Wound Type: Surgical Incision rt neck: Wound Type: Surgical Incision left neck: Wound Type: old dialysis cath site Therapies Physical Therapy: Eval and Treat Occupational Therapy: Eval and Treat Speech Therapy: Eval and Treat Problem/Diagnosis (1) Acute renal failure: Status: Acute Code(s): N17.9 - Acute kidney failure, unspecified (2) Chronic kidney disease, stage 3b: Status: Acute Code(s): N18.32 - Chronic kidney disease, stage 3b Allergies/Procedures Done in Hospital Allergies propofol Allergy (Severe, Verified 08/16/22 08:17) Other Propofol infusion syndrome Procedures: 2-D Echocardiogram, Blood transfusion, Central line placement, Dialysis, EGD and Intubation Type of Care/Length of Stay Estimated LOS: Convalescent Care Less Than 30 days Type of Care Needed: Skilled Rehab Potential: Good Prognosis: Good Additional Orders/Day of Discharge Day of Discharge: 08/21/22 Dietary and Speech Recommendations Dietitian Recommendations/Changes: 1) NPO per BULB ASSEMBLER. 2) Continue: Nepro Carb Steady via PEG at 40mL/hour w/ 125mL H2O flush every 4 hours to provide 1699 calories, 78 g protein, and 1448mL total fluid/day. Would start at 20mL/hour and increase by 10mL/hour every 8-12 hours as tolerated until goal rate is achieved. 3) Daily weights. 4) Will monitor TF tolerance as established and adjust as indicated. Discharge Plan Admission Admit Date/Time: 08/07/22 15:31 Primary Reason for Your Visit: Unresponsive Attending Provider: Young Glass Primary Care Provider: Abdirashid Anthony Consulting Providers: Irma Isaacs ; Eliceo Kee ; Aric Simpson ; Ignacio Plascencia ; Enrike Contreras ; Elisa Cervantes NP ; Leslie Simons ; Cal Nash ; Myriam Pierre Discharge Orders/Prescriptions Prescriptions: Continued atorvastatin 20 MG tablet 20 mg PO QHS venlafaxine 150 MG capsule 150 mg PO DAILY insulin aspart U-100 [Novolog FlexPen U-100 Insulin] 100 UNITS/ML insulin pen 30 units subcut BIDCM trazodone 50 mg tablet 50 mg PO DAILY levetiracetam 500 mg tablet 500 mg PO BID lamotrigine 25 mg tablet 25 mg PO DAILY amlodipine 10 mg tablet 10 mg PO DAILY omeprazole 20 mg capsule,delayed release(DR/EC) 20 mg PO DAILY topiramate 50 mg tablet 50 mg PO DAILY cholecalciferol (vitamin D3) 25 mcg (1,000 unit) Tablet 50 mcg PO DAILY Creon 36,000-114,000- 180,000 unit capsule,delayed release(DR/EC) 1 cap PO TIDCM Jardiance 10 mg Tablet 10 mg PO DAILY cyanocobalamin (vitamin B-12) 1,000 mcg Capsule 1,000 mcg PO DAILY Discontinued metformin 1,000 MG tablet 1,000 mg PO BIDCM hydrochlorothiazide 25 mg tablet 25 mg PO DAILY lisinopril 40 mg tablet 40 mg PO DAILY Referrals / Follow Up: Desiree Sarmiento MD [Non-Staff] - Abdirashid Anthony MD [Primary Care Provider] - Disposition Disposition (needs filled in before D/C Order can be placed): Assisted Facility
--- NOTE | 2022-08-21 13:33 | PCM.DC.SUM ---
Providers Date of Admission: 08/07/22 Primary Care Physician: Dr. 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 Routine Consulting Provider: [facility] Reason for Consult: Unresponsiveness EMERGENT Consult: No Notified: Yes Date Notified: 08/07/22 Time Notified: 17:39 Method of Notification: Verbal Consult: Nephrology Routine Consulting Provider: Cal Nash Reason for Consult: MARY EMERGENT Consult: No Notified: Yes Date Notified: 08/07/22 Time Notified: 18:02 Method of Notification: Answering Service 08/10/22 16:08 Consult: Gastroenterology Routine Consulting Provider: [facility] Reason for Consult: acute anemia with guiac + stool EMERGENT Consult: No Notified: Yes Date Notified: 08/10/22 Time Notified: 16:08 Method of Notification: Text 08/13/22 11:17 Consult: Interventional Radiology Routine Consulting Provider: Leslie Simons Reason for Consult: needs hemodialysis tunneled cath EMERGENT Consult: No Notified: Yes Date Notified: 08/13/22 Time Notified: 11:20 Method of Notification: Text 08/13/22 15:43 Consult: Onc/Wound/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 drying department Routine Comment: Reason for Consult:: Coccyx wound Reason For Visit: SHOCK Diagnosis Discharge Diagnosis (1) Acute renal failure: Status: Acute Code(s): N17.9 - Acute kidney failure, unspecified (2) Chronic kidney disease, stage 3b: Status: Acute Code(s): N18.32 - Chronic kidney disease, stage 3b Medications at Discharge Home Medications atorvastatin 20 mg tablet 20 mg PO QHS CHOLESTEROL 07/04/18 insulin aspart U-100 100 unit/mL (3 mL) subcutaneous pen (Novolog FlexPen U-100 Insulin aspart) 30 units subcut BIDCM DM 07/04/18 venlafaxine 150 mg capsule,extended release 24 hr 150 mg PO DAILY . 07/04/18 amlodipine 10 mg tablet 10 mg PO DAILY . 08/07/22 cholecalciferol (vitamin D3) 25 mcg (1,000 unit) tablet 50 mcg PO DAILY SUPPLEMENT 08/07/22 cyanocobalamin (vitamin B-12) 1,000 mcg capsule 1,000 mcg PO DAILY SUPPLEMENT 08/07/22 empagliflozin 10 mg tablet (Jardiance) 10 mg PO DAILY . 08/07/22 lamotrigine 25 mg tablet 25 mg PO DAILY . 08/07/22 levetiracetam 500 mg tablet 500 mg PO BID . 08/07/22 tgahgm-dndvgrnm-agqppog 36,000-114,000-180,000 unit capsule,delay rel (Creon) 1 cap PO TIDCM . 08/07/22 omeprazole 20 mg capsule,delayed release 20 mg PO DAILY GERD 08/07/22 topiramate 50 mg tablet 50 mg PO DAILY . 08/07/22 trazodone 50 mg tablet 50 mg PO DAILY SLEEP 08/07/22 Hospital Course Operations None Procedures 2-D Echocardiogram, Blood transfusion, Central line placement, Dialysis, EGD, Intubation and Peg tube placement Summary of Care Provided Minutes Spent on Discharge: 45 Hospital Course: Renal function Per HPI: TRUE AYALA, is a 56 F who presents with the above.? History was taken from the patient's at the bedside.? Patient was found to be restless this morning and not responding appropriately according to the .? She recently had a colonoscopy 3 days prior.? The EMS found patient not responsive but she had a pulse.? Her blood sugar was 184. Initial blood pressure 67/47, heart rate 40, respiratory rate 14, temperature 83.8 F, oxygen sat was 100% on mechanical ventilator.? Admitting blood work showed WBC 18.7, with neutrophilia, hemoglobin 9.3, down from 10.7, platelet count 416, INR 1.8, pH 6.52, bicarbonate 2.8, PCO2 34, sodium 141, potassium 5.2, chloride 106, bicarbonate 30, BUN 44, creatinine 5.60, anion gap 32, glucose 135, serum osmolarity 331, lactic acid 15.8, calcium 10.3, total bilirubin 0.2, AST 87, ALT 25, ALP 78, troponin 22, albumin 3.0.? UA is cloudy, nitrite negative, leukocyte esterase 500, WBC more than 100, bacteria 1+.? Urine tox positive for benzodiazepine. Brain CT showed chronic involutional changes of the brain.? Tiny lacunae in the right thalamus.? Chest x-ray showed increased markings in the right upper lobe Hospital Course: 1. Acute respiratory failure with an anion gap metabolic acidosis/shock unknown etiology/MARY on CKD 3B/dysphagia/toxic and metabolic encephalopathy ? Unsure as to the etiology of shock however this has resolved and she is not currently on any pressors ? She was intubated on admission on 08/07/2022 and extubated on 08/11/2022 she is maintaining her oxygen sats currently at 1-2 L nasal cannula ? Her ethylene glycol test was negative but her metformin was significantly elevated at 32 mcg/mL ? Appreciate nephrology's assistance continue with dialysis, she did have a right tunneled catheter placed today ? Had PEG tube placed on 08/15/2022 we will continue to feed via PEG tube secondary to her failure on her modified barium swallow on 08/13/2022 ? It is improving and she is making urine though on the day of discharge she was found to be retaining so we will straight cath x1 I would recommend a bladder scan at the half-way and if she is still retaining more than [address] a Neal catheter and have her follow-up with urology as an outpatient. We did discontinue her metformin secondary to the toxicity that was discovered on lab work. Will also hold her lisinopril and hydrochlorothiazide given her renal failure but can restart her Norvasc. The rest of her home medications were also restarted. I discussed with her the plan for discharge today to start rehab and she expressed understanding of the risk benefits of going today and would like to go today if possible. 2. Acute anemia/thrombocytopenia/GERD ? She did receive multiple red blood cell transfusions, hemoglobin is stable I do recommend continued outpatient monitoring ? We will continue to monitor continue with PPI ? EGD done on 08/14/2022 states that she possibly had dehiscence of her previous gastric bypass surgery ? Thrombocytopenia resolved, however HIT panel is negative 3. DM2/pancreatic insufficiency ? Continue with insulin ? Accu-Cheks ACHS ? We will make adjustments as necessary and continue to monitor ? Continue with Creon 4. Hypertension ? Blood pressures are stable, will continue to hold pressure medications ? Can resume Norvasc 5. Seizure disorder/chronic headaches ? Stable ? Continue with her home medications 6. Depression ? Stable ? Can resume on discharge when she is able to have p.o. Do recommend continued speech therapy Physical Exam Narrative General: Alert, Oriented x3, Cooperative, No apparent distress HEENT: Atraumatic, PERRLA, EOMI, Normocephalic Oral: Moist Mucosa Neck: Supple, No JVD, right tunneled catheter Lungs: Diminished, Normal air movement, No rhonchi, No wheeze, No rales Cardiovascular: Regular rate, Regular Rhythm, Normal S1, Normal S2, No murmurs Abdomen: Soft, Non Tender, Non-Distended, No Hepato-splenomegaly, PEG tube in place Extremities: Edema, Capillary Refill Less than 3 Seconds Skin: No rashes, No breakdown Musculoskeletal: No Tenderness to Palpation of Joints or Extremities Neurological: Moves all extremities, sensation intact Psych/Mental Status: Normal affect, Appropriate Weight / BMI Weight Weight: 184 lb 4.903 oz Body Mass Index (BMI) 33.9 ABG / Lab / Microbiology Data Result Diagrams: 08/21/22 08:30 08/21/22 08:30 Laboratory: Laboratory Results - last 24 hr 08/07/22 15:30: Miscellaneous Test 08/07/22 15:30: Miscellaneous Test 08/20/22 18:03: POC Glucose 216 H 08/21/22 00:14: POC Glucose 278 H 08/21/22 05:40: POC Glucose 280 H 08/21/22 08:30: WBC 9.2, RBC 3.10 L, Hgb 8.9 L, Hct 27.0 L, MCV 87.1, MCH 28.7, MCHC 33.0, RDW Std Deviation 48.1 H, RDW Coeff of Jacqueline 15.4 H, Plt Count 274, MPV 11.0, Immature Gran % (Auto) 0.800, Neut % (Auto) 73.4 H, Lymph % (Auto) 17.4 L, [place] % (Auto) 7.0, Eos % (Auto) 1.0, Baso % (Auto) 0.4, Absolute Neuts (auto) 6.7, Absolute Lymphs (auto) 1.60, Nucleated RBC % 0 08/21/22 08:30: Sodium 138, Potassium 3.5, Chloride 98, Carbon Dioxide 32.0, Anion Gap 8, BUN 29 H, Creatinine 2.97 H, Estim Creat Clear Calc 15.58, Est GFR (MDRD) Af Amer 21 L, Est GFR (MDRD) Non-Af 17 L, BUN/Creatinine Ratio 9.8 L, Glucose 308 H, Calcium 8.2 L 08/21/22 12:14: POC Glucose 246 H Microbiology: Microbiology 08/07/22 16:45 Blood Culture (Wb) - Right Wrist Blood Culture - Final No growth in 5 days. 08/07/22 16:50 Blood Culture (Wb) - Left Foot Blood Culture - Final No growth in 5 days. 08/11/22 01:10 Stool C. difficile DNA Amplification - Final 08/10/22 12:00 Stool Stool Occult Blood (ISAIAS) - Final Occult Blood Positive 08/07/22 15:30 Urine, Clean Catch Urine Culture - Final Pseudomonas fluorescens 08/07/22 15:33 Sputum, Tracheal Aspirate Gram Stain - Final 08/07/22 15:33 Sputum, Tracheal Aspirate Respiratory Culture - Final Mixed normal respiratory ny. No Streptococcus pneumoniae, beta-hemolytic Streptococcus or Staphylococcus aureus isolated. Meaningful Use Info Meaningful Use Diagnoses (Choose all that apply): None applicable Discharge Plan Admission Admit Date/Time: 08/07/22 15:31 Primary Reason for Your Visit: Unresponsive Attending Provider: Young Glass Primary Care Provider: Abdirashid Anthony Consulting Providers: Irma Isaacs ; Eliceo Kee ; Aric Simpson ; Ignacio Plascencia ; Enrike Contreras ; Elisa Cervantes NP ; Leslie Simons ; Cal Nash ; Myriam Pierre Discharge Orders/Prescriptions Prescriptions: Continued atorvastatin 20 MG tablet 20 mg PO QHS venlafaxine 150 MG capsule 150 mg PO DAILY insulin aspart U-100 [Novolog FlexPen U-100 Insulin] 100 UNITS/ML insulin pen 30 units subcut BIDCM trazodone 50 mg tablet 50 mg PO DAILY levetiracetam 500 mg tablet 500 mg PO BID lamotrigine 25 mg tablet 25 mg PO DAILY amlodipine 10 mg tablet 10 mg PO DAILY omeprazole 20 mg capsule,delayed release(DR/EC) 20 mg PO DAILY topiramate 50 mg tablet 50 mg PO DAILY cholecalciferol (vitamin D3) 25 mcg (1,000 unit) Tablet 50 mcg PO DAILY Creon 36,000-114,000- 180,000 unit capsule,delayed release(DR/EC) 1 cap PO TIDCM Jardiance 10 mg Tablet 10 mg PO DAILY cyanocobalamin (vitamin B-12) 1,000 mcg Capsule 1,000 mcg PO DAILY Discontinued metformin 1,000 MG tablet 1,000 mg PO BIDCM hydrochlorothiazide 25 mg tablet 25 mg PO DAILY lisinopril 40 mg tablet 40 mg PO DAILY Referrals / Follow Up: Desiree Sarmiento MD [Non-Staff] - Abdirashid Anthony MD [Primary Care Provider] - Disposition Disposition (needs filled in before D/C Order can be placed): [facility] Charges/Coding Visit Charges Inpatient E&M: 91501 Disch Hosp >30min
[2022-08-21] MEDS: Creon 12,000 unit DR CapSULE 3 CAP PO ×2 (13:51→17:52)
[2022-08-21] MEDS: lamoTRIgine 25 MG Tablet GT (13:52)
[2022-08-21] MEDS: Cholecalciferol (VIT D3) 25 MCG TABLET (1,000 UNITS) 50 MCG GT (13:52)
[2022-08-21] MEDS: Cyanocobalamin 500 MCG Tablet 1000 MCG GT (13:52)
[2022-08-21] MEDS: Insulin Glargine-YFGN 100 UNIT/ML Pen 10 UNIT SC (13:53)
--- NOTE | 2022-08-21 13:53 | PHA.DC.MR ---
Pharmacy Service has performed discharge medication reconciliation for this patient upon transfer to [facility]. Home Medications atorvastatin 20 mg tablet 20 mg PO QHS CHOLESTEROL 07/04/18 insulin aspart U-100 100 unit/mL (3 mL) subcutaneous pen (Novolog FlexPen U-100 Insulin aspart) 30 units subcut BIDCM DM 07/04/18 venlafaxine 150 mg capsule,extended release 24 hr 150 mg PO DAILY . 07/04/18 amlodipine 10 mg tablet 10 mg PO DAILY . 08/07/22 cholecalciferol (vitamin D3) 25 mcg (1,000 unit) tablet 50 mcg PO DAILY SUPPLEMENT 08/07/22 cyanocobalamin (vitamin B-12) 1,000 mcg capsule 1,000 mcg PO DAILY SUPPLEMENT 08/07/22 empagliflozin 10 mg tablet (Jardiance) 10 mg PO DAILY . 08/07/22 lamotrigine 25 mg tablet 25 mg PO DAILY . 08/07/22 levetiracetam 500 mg tablet 500 mg PO BID . 08/07/22 agbadi-hlsbpcxq-wpsbtop 36,000-114,000-180,000 unit capsule,delay rel (Creon) 1 cap PO TIDCM . 08/07/22 omeprazole 20 mg capsule,delayed release 20 mg PO DAILY GERD 08/07/22 topiramate 50 mg tablet 50 mg PO DAILY . 08/07/22 trazodone 50 mg tablet 50 mg PO DAILY SLEEP 08/07/22 The patient's discharge medication list was reviewed for discrepancies and discrepancies were resolved.
--- NOTE | 2022-08-21 14:13 | CASEMGMT ---
Patient is ready for discharge to [facility]. JANEL called Physicians and arranged for patient to get picked up at via cot. JANEL called patient's and let him know. JANEL also notified RN, medical secretary teacher, patient and [facility]. JANEL completed 7000 on HENS. Plan: d/c to [facility] under skilled level of care on a convalescent stay. Physicians will transport patient via cot. Carolynn CAPPS
[2022-08-21 14:31] VITALS: BP 134/70; PULSE 73; RESP 18; TEMP 36.7; O2SAT 94
--- NOTE | 2022-08-21 14:36 | PCM.PN.REN ---
Subjective Subjective no new complaints Objective Data Objective Data Vital Signs: Vital Signs Temp Pulse Resp BP Pulse Ox O2 Del Method O2 Flow Rate 98.1 F 73 18 134/70 H 94 Room Air 1 08/21/22 14:31 08/21/22 14:31 08/21/22 14:31 08/21/22 14:31 08/21/22 14:31 08/21/22 14:31 08/19/22 13:11 FiO2 45 08/13/22 02:00 Oxygen Flow Rate (L/min) 1 Oxygen Delivery Method Room Air Weight: 83.6 kg Body Mass Index (BMI) 33.9 Intake & Output: Intake and Output for Last 24 Hours 08/19/22 08/20/22 08/21/22 23:59 23:59 23:59 Intake Total 4200.33 / 4200.33 2616.33 / 2616.33 757.75 / 757.75 Output Total 2500 / 2500 3850 / 3850 Balance 1700.33 / 1700.33 2616.33 / 2616.33 -3092.25 / -3092.25 Lab / Micro Data Result Diagrams: 08/21/22 08:30 08/21/22 08:30 Labs: Laboratory Results - last 24 hr 08/07/22 15:30: Miscellaneous Test 08/07/22 15:30: Miscellaneous Test 08/20/22 18:03: POC Glucose 216 H 08/21/22 00:14: POC Glucose 278 H 08/21/22 05:40: POC Glucose 280 H 08/21/22 08:30: WBC 9.2, RBC 3.10 L, Hgb 8.9 L, Hct 27.0 L, MCV 87.1, MCH 28.7, MCHC 33.0, RDW Std Deviation 48.1 H, RDW Coeff of Jacqueline 15.4 H, Plt Count 274, MPV 11.0, Immature Gran % (Auto) 0.800, Neut % (Auto) 73.4 H, Lymph % (Auto) 17.4 L, [place] % (Auto) 7.0, Eos % (Auto) 1.0, Baso % (Auto) 0.4, Absolute Neuts (auto) 6.7, Absolute Lymphs (auto) 1.60, Nucleated RBC % 0 08/21/22 08:30: Sodium 138, Potassium 3.5, Chloride 98, Carbon Dioxide 32.0, Anion Gap 8, BUN 29 H, Creatinine 2.97 H, Estim Creat Clear Calc 15.58, Est GFR (MDRD) Af Amer 21 L, Est GFR (MDRD) Non-Af 17 L, BUN/Creatinine Ratio 9.8 L, Glucose 308 H, Calcium 8.2 L 08/21/22 12:14: POC Glucose 246 H Micro: Microbiology 08/07/22 16:45 Blood Culture (Wb) - Right Wrist Blood Culture - Final No growth in 5 days. 08/07/22 16:50 Blood Culture (Wb) - Left Foot Blood Culture - Final No growth in 5 days. 08/11/22 01:10 Stool C. difficile DNA Amplification - Final 08/10/22 12:00 Stool Stool Occult Blood (ISAIAS) - Final Occult Blood Positive 08/07/22 15:30 Urine, Clean Catch Urine Culture - Final Pseudomonas fluorescens 08/07/22 15:33 Sputum, Tracheal Aspirate Gram Stain - Final 08/07/22 15:33 Sputum, Tracheal Aspirate Respiratory Culture - Final Mixed normal respiratory ny. No Streptococcus pneumoniae, beta-hemolytic Streptococcus or Staphylococcus aureus isolated. Rhythm Strip Rhythm Strip: Sinus Tach Rate: 120 Physical Exam Narrative Alert awake no obvious distress no pallor no icterus no JVD s1s2 no murmurs lungs clear abdomen soft no organomegaly +++ edema no cyanosis Const alert, oriented x3, no apparent distress and average body habitus Orientation / Consciousness: oriented to person and oriented to place HEENT normocephalic Neck no lymphadenopathy Resp no use of accessory muscles and clear to auscultation bilaterally Auscultation: rhonchi and diminished lung sounds bilateral throughout Cardio regular rate Cardio Narrative: Tachycardic GI non-tender Auscultation: normoactive bowel sounds Skin no rashes or lesions noted Neuro Sensorium / Orientation: awake, alert and sedated on vent Psych cooperative Assessment & Plan Assessment/Plan (1) Acute renal failure: PLAN: Baseline creatinine is around 1.5. Came in with acute renal failure, acidosis. Started on renal replacement therapy. Will maintain Wednesday, Wednesday, Wednesday schedule. seen on dialysis today Acidosis. Resolved today. hypokalemia. We have been using 3k solutions for dialysis. resolved. We will use to this solution today Complaints of urge to void. No significant suprapubic fullness. Discussed with staff. Bladder scan done today. Positive for 1000 cc. Straight catheter today. She will likely need bladder scan at the skilled nursing after discharge. (2) Chronic kidney disease, stage 3b:
--- NOTE | 2022-08-21 14:48 | NURSING ---
Report called to nurse Heath for pt to be d/c to [facility].
[2022-08-21 18:40] LABS: Bedside Glucose 291 mg/dL (74-106)
[2022-08-21 20:00] VITALS: BP 149/73; PULSE 86; RESP 16; TEMP 36.8; O2SAT 93
== END 2022-08-21 20:18 | disposition skilled nursing facility (03) | DRG 133 ==
LOC: ED 15:53 → ICU 16:06 → PCU 08-14 06:20
PROVIDERS: Anesthesiology; Internal Medicine; Internal Medicine Critical Care Medicine; Internal Medicine Gastroenterology; Internal Medicine Nephrology; Surgery; Admitting Provider Internal Medicine; Emergency Provider Emergency Medicine; PCP Internal Medicine; Visit Provider Family Medicine
PROC: 0DJ08ZZ Inspection of Upper Intestinal Tract, Via Natural or Artificial Opening Endoscopic (ICD-10-PCS; CPT 43235; principal; 2022-08-14 13:55)
PROC: 05PYX3Z Removal of Infusion Device from Upper Vein, External Approach (ICD-10-PCS; principal; 2022-08-17 07:15)
DX: J96.01 Acute respiratory failure with hypoxia (principal); N17.0 Acute kidney failure with tubular necrosis; R57.9 Shock, unspecified; I44.2 Atrioventricular block, complete; G92.8 Other toxic encephalopathy; D75.829 Heparin-induced thrombocytopenia, unspecified; K25.4 Chronic or unspecified gastric ulcer with hemorrhage; I95.9 Hypotension, unspecified; T68.XXXA Hypothermia, initial encounter; J96.02 Acute respiratory failure with hypercapnia; E11.22 Type 2 diabetes mellitus with diabetic chronic kidney disease; E11.21 Type 2 diabetes mellitus with diabetic nephropathy; Z79.4 Long term (current) use of insulin; N18.32 Chronic kidney disease, stage 3b; G40.909 Epilepsy, unspecified, not intractable, without status epilepticus; Z99.2 Dependence on renal dialysis; D62 Acute posthemorrhagic anemia; E87.4 Mixed disorder of acid-base balance; K21.9 Gastro-esophageal reflux disease without esophagitis; F41.9 Anxiety disorder, unspecified; E55.9 Vitamin D deficiency, unspecified; E03.9 Hypothyroidism, unspecified; I12.9 Hypertensive chronic kidney disease with stage 1 through stage 4 chronic kidney disease, or unspecified chronic kidney disease; E78.5 Hyperlipidemia, unspecified; D63.1 Anemia in chronic kidney disease; E87.6 Hypokalemia; E83.42 Hypomagnesemia; K44.9 Diaphragmatic hernia without obstruction or gangrene; T38.3X4A Poisoning by insulin and oral hypoglycemic [antidiabetic] drugs, undetermined, initial encounter; X58.XXXA Exposure to other specified factors, initial encounter; T45.515A Adverse effect of anticoagulants, initial encounter; K86.89 Other specified diseases of pancreas; K29.71 Gastritis, unspecified, with bleeding; F32.A Depression, unspecified; G47.00 Insomnia, unspecified; R13.12 Dysphagia, oropharyngeal phase; R51.9 Headache, unspecified; Z79.01 Long term (current) use of anticoagulants; Z79.84 Long term (current) use of oral hypoglycemic drugs; Z79.899 Other long term (current) drug therapy; Z86.73 Personal history of transient ischemic attack (TIA), and cerebral infarction without residual deficits; Z23 Encounter for immunization
CPT/HCPCS: 31500; 31720; 36415; 36600; 51702; 70450; 71045; 71046; 74018; 74230; 76770; 77001; 80048; 80053; 80069; 80202; 80307; 81001; 82009; 82274; 82533; 82550; 82803; 82947; 82962; 83540; 83550; 83605; 83735; 83930; 84100; 84443; 84478; 84484; 85014; 85018; 85025; 85045; 85610; 85730; 86644; 86850; 86900; 86901; 86920; 86922; 87040; 87070; 87086; 87088; 87186; 87205; 87340; 87493; 87641; 90937; 90947; 92526; 92610; 92611; 93005; 93308; 94002; 94003; 94660; 94668; 94762; 97110; 97116; 97162; 97166; 97530; 97535; 97802; 97803; 99252; 99285; J2997; J7030; J7040; J7050; J7120; P9016; A4216; C1752; G0257; G0463; J3490

== ENCOUNTER → 2022-08-25 | Outpatient (REF) | payer MEDICAID, SELFPAY ==
[2022-08-25 09:51] LABS: Hematocrit 23.8 % (37-47); Hemoglobin 7.7 g/dL (12.0-15.0); Mean Corp Hgb Conc 32.4 g/dL (32-36); Mean Corpuscular Hgb 28.9 pg (27.0-32.0); Mean Corpuscular Volume 89.5 fL (81-99); Mean Platelet Vol. 10.7 fl (6.2-12.0); Platelet Count 298 K/mm3 (150-450); RBC Distribution Width CV 15.9 % (11.6-14.6); RBC Distribution Width SD 50.4 fl (35.1-43.9); Red Blood Count 2.66 M/mm3 (4.2-5.4); White Blood Count 7.7 K/mm3 (4.4-11.0)
[2022-08-25 10:07] LABS: Anion Gap 7 (5-15); BUN 23 mg/dL (7-18); BUN/Creat Ratio 10.5 RATIO (10-20); Calcium,Total 8.3 mg/dL (8.5-10.1); Chloride 101 mmol/L (98-107); Creatinine, Serum 2.19 mg/dL (0.55-1.02); EST Glomerular Filtration Rate 24 mL/min (>60); Est Glom Filt Rate - Afr Amer 30 mL/min (>60); Glucose 227 mg/dL (74-106); Sodium Level 138 mmol/L (136-145)
[2022-08-27 19:36] LABS: KEPPRA (LEVETIRACETAM) 27.9 ug/mL (10.0-40.0)
== END | disposition home or self-care (01) ==
LOC: OLS.SW 07:55
PROVIDERS: PCP Internal Medicine; Visit Provider Family Medicine
DX: Z02.2 Encounter for examination for admission to residential institution (principal)
CPT/HCPCS: 36415; 80048; 80177; 85027

== ENCOUNTER → 2022-08-26 | Outpatient (REF) | payer MEDICAID, SELFPAY ==
[2022-08-26 09:24] LABS: Hemoglobin 7.5 g/dL (12.0-15.0); Mean Corp Hgb Conc 31.3 g/dL (32-36); Mean Corpuscular Hgb 28.5 pg (27.0-32.0); Mean Corpuscular Volume 91.3 fL (81-99); Mean Platelet Vol. 10.7 fl (6.2-12.0); Platelet Count 328 K/mm3 (150-450); RBC Distribution Width CV 16.3 % (11.6-14.6); RBC Distribution Width SD 51.8 fl (35.1-43.9); Red Blood Count 2.63 M/mm3 (4.2-5.4); White Blood Count 8.9 K/mm3 (4.4-11.0)
[2022-08-26 09:50] LABS: ALB/GLOB Ratio 0.6 RATIO (0.9-2.4); AST(SGOT) 14 U/L (15-37); Alanine Aminotransfer ALT/SGPT 10 U/L (13-56); Albumin, Serum 1.8 g/dL (3.2-5.0); Alkaline Phosphatase 105 U/L (45-117); Anion Gap 8 (5-15); BUN 34 mg/dL (7-18); BUN/Creat Ratio 12.6 RATIO (10-20); Calcium,Total 8.9 mg/dL (8.5-10.1); Chloride 101 mmol/L (98-107); Creatinine, Serum 2.69 mg/dL (0.55-1.02); EST Glomerular Filtration Rate 19 mL/min (>60); Est Glom Filt Rate - Afr Amer 23 mL/min (>60); Glucose 177 mg/dL (74-106); Potassium 3.5 mmol/L (3.5-5.1); Protein, Total 4.8 g/dL (6.4-8.2); Sodium Level 140 mmol/L (136-145)
== END | disposition home or self-care (01) ==
LOC: OLS.SW 06:45
PROVIDERS: PCP Internal Medicine; Referring Provider Family Medicine; Visit Provider Family Medicine
DX: E11.22 Type 2 diabetes mellitus with diabetic chronic kidney disease (principal); N18.32 Chronic kidney disease, stage 3b
CPT/HCPCS: 36415; 80053; 83036; 85027

== ENCOUNTER → 2022-09-01 | Outpatient (REF) | payer MEDICAID, SELFPAY ==
[2022-09-01 09:17] LABS: Hematocrit 23.1 % (37-47); Mean Corp Hgb Conc 30.3 g/dL (32-36); Mean Corpuscular Hgb 28.6 pg (27.0-32.0); Mean Corpuscular Volume 94.3 fL (81-99); Mean Platelet Vol. 11.2 fl (6.2-12.0); Platelet Count 267 K/mm3 (150-450); RBC Distribution Width SD 57.5 fl (35.1-43.9); Red Blood Count 2.45 M/mm3 (4.2-5.4); White Blood Count 7.1 K/mm3 (4.4-11.0)
== END | disposition home or self-care (01) ==
LOC: OLS.SW 05:00
PROVIDERS: PCP Internal Medicine; Visit Provider Family Medicine
DX: J96.01 Acute respiratory failure with hypoxia (principal); N17.9 Acute kidney failure, unspecified; E11.22 Type 2 diabetes mellitus with diabetic chronic kidney disease; N18.9 Chronic kidney disease, unspecified
CPT/HCPCS: 36415; 85027

== ENCOUNTER → 2022-09-01 | Outpatient (REF) | payer MEDICAID, SELFPAY | END | disposition home or self-care (01) | LOC: OLS.SW 11:30 | PROVIDERS: PCP Internal Medicine; Visit Provider Family Medicine | DX: A04.72 Enterocolitis due to Clostridium difficile, not specified as recurrent (principal) | CPT/HCPCS: 87493 ==

== ENCOUNTER 2022-09-11 09:48 | Inpatient (IN) | payer MEDICAID, SELFPAY ==
[2022-09-11] VITALS (14 sets, daily range): BP systolic 77–119; BP diastolic 46–79; PULSE 80–98; RESP 12–20; TEMP 36.6–37.4; O2SAT 94–100; BMI 12.0; BMI 29.1
[2022-09-11] MEDS: Dextrose 50%-Water 25 GM/50 ML DISP.SYRIN IV (10:03)
--- NOTE | 2022-09-11 10:09 | RAD_ITS ---
STUDY: X-RAY CHEST REASON FOR EXAM: Female, 56 years old. Cough TECHNIQUE: Single AP portable view of the chest. COMPARISON: Comparison is made with prior study August 17, 2022. FINDINGS: A right-sided double-lumen catheter is seen with the tip in the right atrium. The lungs are clear and expanded. There is no demonstrated pleural abnormality. Normal size heart. Normal mediastinum and yaneli. Normal visualized pulmonary arteries. Normal visualized aortic arch and descending thoracic aorta. Normal visualized thoracic spine. Normal visualized ribs, clavicles, and shoulders. There is no demonstrated abnormality of the visualized soft tissue structures of the upper abdomen. RAD/Chest 1 View (Portable) IMPRESSION: Normal x-ray examination of the chest. Electronically Signed: Sunil Quintanilla MD at 10:57 EDT ,
--- NOTE | 2022-09-11 10:09 | EKG12_ITS ---
Test Reason : Blood Pressure : / mmHG Vent. Rate : 085 BPM Atrial Rate : 085 BPM P-R Int : 156 ms QRS Dur : 078 ms QT Int : 402 ms P-R-T Axes : 010 029 066 degrees QTc Int : 478 ms Sinus rhythm with frequent Premature ventricular complexes Low voltage QRS Nonspecific T wave abnormality Prolonged QT Abnormal ECG Confirmed by WILLIE DUONG, HANSA ([id number]), editor & co founder MARIALUISA VERA ([id number]) on 09/14/2022 2:13:44 PM Referred By: Confirmed By:HANSA TAPIA MD
[2022-09-11 10:15] LABS: Bedside Glucose 37 mg/dL (74-106)
[2022-09-11 10:27] LABS: Absolute Lymphocyte Count 1.12 X10^3/uL (0.83-4.51); Absolute Neutrophil Count 14.7 X10^3/uL (2.0-7.7); Basophil# 0.05 X10^3/uL; Basophil% 0.3 % (0-1); Eosinophil# 0.08 X10^3/uL; Eosinophils% 0.5 % (0-5); Hemoglobin 6.7 g/dL (12.0-15.0); Lymphocyte # 1.12 X10^3/ul (0.83-4.51); Lymphocyte % 6.5 % (19-41); Mean Corp Hgb Conc 31.9 g/dL (32-36); Mean Corpuscular Volume 94.2 fL (81-99); Mean Platelet Vol. 10.4 fl (6.2-12.0); Monocyte# 1.08 X10^3/uL; Monocyte% 6.3 % (0-10); NRBC Flagged by Analyzer 0.1 % (0-5); Neutrophil # 14.65 X10^3/uL (2.7-7.7); Neutrophil % 84.7 % (47-70); POSITIVE MORPHOLOGY YES; Platelet Count 181 K/mm3 (150-450); RBC Distribution Width CV 20.5 % (11.6-14.6); RBC Distribution Width SD 68.8 fl (35.1-43.9); Red Blood Count 2.23 M/mm3 (4.2-5.4); White Blood Count 17.3 K/mm3 (4.4-11.0)
[2022-09-11 10:28] LABS: Differential Indicated SCAN CRITERIA MET
[2022-09-11 10:36] LABS: Prothrombin Time (Protime)PT. 13.2 SECONDS (11.7-14.9)
--- NOTE | 2022-09-11 10:42 | EX.ED.DYSGE1 ---
HPI History of Present Illness Chief Complaint: Hypoglycemia Informant: patient and EMS Narrative Narrative: Patient is a 56-year-old female extensive medical history presenting with hypoglycemia during dialysis today. Per report patient was at the beginning of her dialysis session. She became unresponsive and diaphoretic. Her blood sugar was reading low. EMS gave D10 and her blood sugar increased to 100. She was placed on 2 L of oxygen however its not clear why. Patient has she has had increased cough today. When patient arrived to the ER her blood sugar was again 37 and she was given an amp of D50. She is now drinking orange juice and has improvement of her mentation. Patient is able to tell me that she received her insulin today but was not allowed to eat or drink anything because she had to get dialysis. She is a resident [facility]. She states they are trying to kill me. Patient notes that she did recently start eating again. She has a PEG tube but has been taking food by mouth now. She initially told me that she has a chronic cough but then tells me that she is been coughing more lately. She does not think she wears oxygen normally. [facility] Medical History Anxiety and depression Chronic anemia Chronic pancreatitis Depression Diabetes mellitus, type 2 GERD (gastroesophageal reflux disease) HTN (hypertension) Hyperlipidemia Hypothyroidism Insomnia Seizure disorder Vitamin D deficiency Home Medications atorvastatin 20 mg tablet 20 mg feeding tube QHS CHOLESTEROL 07/04/18 [History Last Taken 09/10/22] insulin aspart U-100 100 unit/mL (3 mL) subcutaneous pen (Novolog FlexPen U-100 Insulin aspart) 40 units subcut BIDCM DM 07/04/18 [History Last Taken 09/11/22] venlafaxine 150 mg capsule,extended release 24 hr 150 mg PO DAILY MOOD 07/04/18 [History Last Taken 09/10/22] amlodipine 10 mg tablet 10 mg feeding tube DAILY HTN 08/07/22 [History Last Taken 09/11/22] cholecalciferol (vitamin D3) 25 mcg (1,000 unit) tablet 50 mcg feeding tube DAILY SUPPLEMENT 08/07/22 [History Last Taken 09/11/22] cyanocobalamin (vitamin B-12) 1,000 mcg capsule 1,000 mcg PO DAILY SUPPLEMENT 08/07/22 [History Last Taken 09/11/22] empagliflozin 10 mg tablet (Jardiance) 10 mg PO DAILY DM 08/07/22 [History Last Taken 09/11/22] lamotrigine 25 mg tablet 25 mg PO DAILY SEZIURES 08/07/22 [History Last Taken 09/11/22] levetiracetam 500 mg tablet 500 mg PO BID SEZIURES 08/07/22 [History Last Taken 09/11/22] topiramate 50 mg tablet 50 mg feeding tube DAILY SEZIURES 08/07/22 [History Last Taken 09/11/22] trazodone 50 mg tablet 50 mg feeding tube DAILY SLEEP 08/07/22 [History Last Taken 09/10/22] collagenase clostridium histo. 250 unit/gram topical ointment (Santyl) 1 applic topical QHS WOUND 09/11/22 [History Last Taken 09/10/22] esomeprazole magnesium 20 mg granules delayed release for susp (Nexium Packet) 20 mg PO DAILY HEARTBUN 09/11/22 [History Last Taken 09/11/22] insulin glargine 100 unit/mL (3 mL) subcutaneous pen (Lantus Solostar U-100 Insulin) 30 unit subcut QHS DM 09/11/22 [History Last Taken 09/10/22] vitamin B complex and vitamin C no.20-folic acid 1 mg capsule 1 cap PO DAILY SUPPLEMENT 09/11/22 [History Last Taken 09/10/22] Allergy/AdvReac Type Severity Reaction Status Date / Time propofol Allergy Severe Other Verified 09/11/22 09:49 Surgical History H/O gastric bypass Social History household members: spouse Smoking Status: Never smoker alcohol intake: never substance use type: does not use ROS ROS ED Constitutional Constitutional ED: Reports sweats and other Details: Episode of unresponsiveness, resolved with administration of blood sugar ; Denies chills or fever(s) Eyes Eyes: Denies change in vision ENT ENT ED: Denies sore throat Cardiovascular Cardiovascular: Denies chest pain or palpitations Respiratory/Chest Respiratory/Chest: Reports cough; Denies dyspnea Gastrointestinal Gastrointestinal: Denies abdominal pain, nausea or vomiting Musculoskeletal Musculoskeletal: Denies arthralgias or myalgias Neurologic Neurologic: Reports weakness; Denies paresthesias Psychiatric Psychiatric: Denies anxiety or depression Hematologic/Lymphatic Hematologic/Lymphatic: Reports anemia EXAM Physical Exam Const Vital Signs: 09/11/22 09:50 09/11/22 09:58 09/11/22 10:37 Temperature 97.8 F Temperature Source Oral Pulse Rate 89 86 Respiratory Rate 20 H 14 Respiratory Effort Normal Non-Labored Respiratory Pattern Normal Blood Pressure 91/53 L 77/57 L Blood Pressure Mean 65 63 Pulse Ox 94 98 Oxygen Delivery Method Nasal Cannula Oxygen Flow Rate (L/min) 2 2 09/11/22 11:45 09/11/22 12:02 Temperature Temperature Source Pulse Rate 80 82 Respiratory Rate 12 Respiratory Effort Respiratory Pattern Blood Pressure 96/53 L 93/60 Blood Pressure Mean 67 71 Pulse Ox 100 Oxygen Delivery Method Nasal Cannula Oxygen Flow Rate (L/min) 2 Positive well nourished and well developed Constitutional Narrative: Chronically ill-appearing General Appearance ED: well developed and NAD HEENT Reports dry mucous membranes Mouth ED: Yes dry mucous membranes Mouth: dry mucous membranes Eyes PERRL and EOMs intact bilaterally General Eye ED: Yes pale conjunctiva; Negative for scleral icterus Neck supple and no JVD Chest Wall Chest Narrative: Dialysis catheter in place in right anterior chest wall Resp normal respiratory effort Resp Narrative: Wet cough on exam. Diminished breath sounds at the right base with slight crackles Auscultation: Negative for rales, rhonchi or wheezes Cardio regular rate, regular rhythm and no murmurs GI normal to inspection, nondistended, normoactive bowel sounds GI Narrative: PEG tube in place, no surrounding erythema or drainage Extremity normal to inspection Extremity Narrative: 2+ pedal pitting edema up to the ankles General Extremety ED: Yes edema General Extremity: edema Neuro oriented x3 Neuro Narrative: Slightly slowed speech. No focal deficits Sensorium / Orientation: alert Motor Exam: general weakness Psych mental status grossly normal Skin Skin Narrative: Sacral decubitus wound, grade 2 proximately 8 cm x 4 cm MDM MDM MDM Narrative Medical decision making narrative: Patient provided for altered mental status and hypoglycemia. The 2 are likely related. Prior inpatient note reviewed from hospitalization of 08/07 through 08/21. Patient was found to be unresponsive, hypotensive and bradycardic. She was in her acute respiratory failure with anion gap metabolic acidosis/shock and MARY. Patient was started on dialysis and PEG tube was placed. Patient had been intubated on upon admission. It appears that patient was discharged on 1 to 2 L of nasal cannula oxygen. Patient did receive multiple transfusions while hospitalized. Patient is hypoglycemic in the ER requiring D50. She does not have any further episodes of hypoglycemia. She is found to have leukocytosis of 17.3 as well as an acute on chronic anemia with a hemoglobin of 6.7. She does have a left shift. Patient's potassium is also low at 2.6 with bicarb of 33 and a creatinine of 1.38.Chest x-ray to read by myself as well as radiology does not show any acute process. Upon arrival patient does have some low blood pressures but is fluid responsive. She is now requiring 2 L of oxygen which she previously been on room air. Will chest x-ray does not show any acute process patient has new O2 requirements, acute cough and a leukocytosis I suspect she might have aspiration pneumonia she did just advance her diet from PEG tube to oral. She will be covered with Unasyn. In addition patient is ordered a unit of packed red blood cells for her anemia as this might be contributing to her hypoxia. I question if she has been over dialyzed or is having decreased dialysis requirements that she is now hypokalemic and her kidney function is normalizing. Patient is given potassium replacement in the emergency room. Case is briefly discussed with Dr. Collier, nephrology who will also evaluate the patient to give his input. Patient is admitted for further hemodynamic monitoring, electrolyte monitoring and treatment. She is agreeable this plan of care. History & Record Review Additional record(s) reviewed:: Prior inpatient record Lab Data Attestation: I reviewed the patient's lab results. Labs: Laboratory Results - last 24 hr 09/11/22 09/11/22 09/11/22 09:53 10:15 10:15 WBC 17.3 H RBC 2.23 L Hgb 6.7 L Hct 21.0 L MCV 94.2 MCH 30.0 MCHC 31.9 L RDW Std Deviation 68.8 H RDW Coeff of Jacqueline 20.5 H Plt Count 181 MPV 10.4 Immature Gran % (Auto) 1.700 H Neut % (Auto) 84.7 H Lymph % (Auto) 6.5 L [place] % (Auto) 6.3 Eos % (Auto) 0.5 Baso % (Auto) 0.3 Absolute Neuts (auto) 14.7 H Absolute Lymphs (auto) 1.12 Nucleated RBC % 0.1 Anisocytosis 1+ PT 13.2 INR 1.0 Sodium Potassium Chloride Carbon Dioxide Anion Gap BUN Creatinine Estim Creat Clear Calc Est GFR (MDRD) Af Amer Est GFR (MDRD) Non-Af BUN/Creatinine Ratio Glucose Lactic Acid Calcium Magnesium Iron TIBC Iron Saturation Ferritin Total Bilirubin AST ALT Alkaline Phosphatase Total Protein Albumin Globulin Albumin/Globulin Ratio POC Glucose 37 L* Blood Type Antibody Screen Crossmatch 09/11/22 09/11/22 09/11/22 10:15 10:15 10:15 WBC RBC Hgb Hct MCV MCH MCHC RDW Std Deviation RDW Coeff of Jacqueline Plt Count MPV Immature Gran % (Auto) Neut % (Auto) Lymph % (Auto) [place] % (Auto) Eos % (Auto) Baso % (Auto) Absolute Neuts (auto) Absolute Lymphs (auto) Nucleated RBC % Anisocytosis PT INR Sodium 139 Potassium 2.6 L* Chloride 101 Carbon Dioxide 33.0 H Anion Gap 5 BUN 25 H Creatinine 1.38 H Estim Creat Clear Calc 24.47 Est GFR (MDRD) Af Amer 50 L Est GFR (MDRD) Non-Af 42 L BUN/Creatinine Ratio 18.1 Glucose 141 H Lactic Acid 1.7 Calcium 7.9 L Magnesium 2.0 Iron TIBC Iron Saturation Ferritin Total Bilirubin 0.20 AST 25 ALT 18 Alkaline Phosphatase 79 Total Protein 4.7 L Albumin 1.9 L Globulin 2.8 Albumin/Globulin Ratio 0.7 L POC Glucose Blood Type O NEGATIVE Antibody Screen NEGATIVE Crossmatch 09/11/22 09/11/22 09/11/22 10:15 10:15 10:35 WBC RBC Hgb Hct MCV MCH MCHC RDW Std Deviation RDW Coeff of Jacqueline Plt Count MPV Immature Gran % (Auto) Neut % (Auto) Lymph % (Auto) [place] % (Auto) Eos % (Auto) Baso % (Auto) Absolute Neuts (auto) Absolute Lymphs (auto) Nucleated RBC % Anisocytosis PT INR Sodium Potassium Chloride Carbon Dioxide Anion Gap BUN Creatinine Estim Creat Clear Calc Est GFR (MDRD) Af Amer Est GFR (MDRD) Non-Af BUN/Creatinine Ratio Glucose Lactic Acid Calcium Magnesium Iron 192 H TIBC 164 L Iron Saturation 117.1 H Ferritin 414 H Total Bilirubin AST ALT Alkaline Phosphatase Total Protein Albumin Globulin Albumin/Globulin Ratio POC Glucose 130 H Blood Type Antibody Screen Crossmatch See Detail Radiography Diagnostic Testing: Clinical Impression(s) from Imaging Studies Chest X-Ray 09/11/22 10:09 IMPRESSION: Normal x-ray examination of the chest. Electronically Signed: Sunil Quintanilla MD at 10:57 EDT , Rhythm Strip Rhythm Strip: Sinus Rhythm Rate: 85 Ectopy: PVC(s) EKG Initial EKG: Attestation: I personally reviewed and interpreted this EKG as follows: Interpretation: Sinus Rhythm Comments: Normal sinus rhythm rate of 85 beats per minutes with PVCs Normal axis Normal intervals Low voltage QRS Normal ST segments Compared to prior EKG on 08/07/2022, patient is no longer bradycardic and now has PVCs Discharge Plan Dx/Rx/DC Orders Clinical Impression: Anemia, Dysphagia, Hypokalemia, Leukocytosis Disposition Disposition: Acute Care Hospital [facility] Discharge Date/Time: 09/11/22 13:41
--- NOTE | 2022-09-11 10:43 | ED.RN ---
called meal tray for pt
[2022-09-11 10:47] LABS: Lactic Acid 1.7 mmol/L (0.4-1.9)
[2022-09-11 10:48] LABS: ALB/GLOB Ratio 0.7 RATIO (0.9-2.4); AST(SGOT) 25 U/L (15-37); Alanine Aminotransfer ALT/SGPT 18 U/L (13-56); Albumin, Serum 1.9 g/dL (3.2-5.0); Alkaline Phosphatase 79 U/L (45-117); Anion Gap 5 (5-15); BUN 25 mg/dL (7-18); BUN/Creat Ratio 18.1 RATIO (10-20); Calcium,Total 7.9 mg/dL (8.5-10.1); Chloride 101 mmol/L (98-107); Creatinine, Serum 1.38 mg/dL (0.55-1.02); EST Glomerular Filtration Rate 42 mL/min (>60); Est Glom Filt Rate - Afr Amer 50 mL/min (>60); Estimated Creatinine Clearance 24.47 ml/min; Globulin 2.8 g/dL (2.2-4.2); Glucose 141 mg/dL (74-106); Potassium 2.6 mmol/L (3.5-5.1); Protein, Total 4.7 g/dL (6.4-8.2); Sodium Level 139 mmol/L (136-145)
[2022-09-11 10:51] LABS: Anisocytosis 1+
[2022-09-11 10:55] LABS: Bedside Glucose 130 mg/dL (74-106)
--- NOTE | 2022-09-11 12:20 | HP.PCM.HOS_ITS ---
HPI - General General Date of Admission: 09/11/22 Date of Service: 09/11/22 Chief Complaint: hypoglycemia HPI Narrative TRUE AYALA, is a 56 F with a PMH as outlined who presents via the ED on 09/11/2022 with a complaint of altered mental status. She was apparently in her dialysis center when she became confused. Her blood sugar when checked was low and she was given D10 infusion; blood sugar increased to 100. When she came to the ED she was noted to be hypoglycemic again, with blood sugar being 37. She was given an amp of D409 and given orange juice. Her mentation subsequently improved. She was recently admitted in the hospital for shock and had to be intubated and was commenced on dialysis during that admission. She denied any fever, chills, but admits to a cough which is productive of sputum. She was previously on only tube feeds via PEG tube but says she only recently started eating. She also says she has had a chronic cough which has worsened. Vitals in the ED at time of review were blood pressure of 93/60, pulse rate of 82, respiratory rate of 12 and oxygen saturation of 100. She was on 2 L of oxygen. CBC showed hemoglobin of 6.7 with WBC of 17.3 and platelets of 181. INR was 1. Chemistry showed sodium of 139 with potassium of 2.6 and creatinine of 1.38. Glucose was 141. Chest x-ray was read as normal examination of the chest. She has been admitted to be managed for high poglycemia likely due to decreased intake because taking insulin as well as possible aspiration pneumonia. [facility] Medical History Anxiety and depression Chronic anemia Chronic pancreatitis Depression Diabetes mellitus, type 2 GERD (gastroesophageal reflux disease) HTN (hypertension) Hyperlipidemia Hypothyroidism Insomnia Seizure disorder Vitamin D deficiency Home Medications atorvastatin 20 mg tablet 20 mg feeding tube QHS CHOLESTEROL 07/04/18 [History Last Taken 09/10/22] insulin aspart U-100 100 unit/mL (3 mL) subcutaneous pen (Novolog FlexPen U-100 Insulin aspart) 40 units subcut BIDCM DM 07/04/18 [History Last Taken 09/11/22] venlafaxine 150 mg capsule,extended release 24 hr 150 mg PO DAILY MOOD 07/04/18 [History Last Taken 09/10/22] amlodipine 10 mg tablet 10 mg feeding tube DAILY HTN 08/07/22 [History Last Taken 09/11/22] cholecalciferol (vitamin D3) 25 mcg (1,000 unit) tablet 50 mcg feeding tube DAILY SUPPLEMENT 08/07/22 [History Last Taken 09/11/22] cyanocobalamin (vitamin B-12) 1,000 mcg capsule 1,000 mcg PO DAILY SUPPLEMENT 08/07/22 [History Last Taken 09/11/22] empagliflozin 10 mg tablet (Jardiance) 10 mg PO DAILY DM 08/07/22 [History Last Taken 09/11/22] lamotrigine 25 mg tablet 25 mg PO DAILY SEZIURES 08/07/22 [History Last Taken 09/11/22] levetiracetam 500 mg tablet 500 mg PO BID SEZIURES 08/07/22 [History Last Taken 09/11/22] topiramate 50 mg tablet 50 mg feeding tube DAILY SEZIURES 08/07/22 [History Last Taken 09/11/22] trazodone 50 mg tablet 50 mg feeding tube DAILY SLEEP 08/07/22 [History Last Taken 09/10/22] collagenase clostridium histo. 250 unit/gram topical ointment (Santyl) 1 applic topical QHS WOUND 09/11/22 [History Last Taken 09/10/22] esomeprazole magnesium 20 mg granules delayed release for susp (Nexium Packet) 20 mg PO DAILY HEARTBUN 09/11/22 [History Last Taken 09/11/22] insulin glargine 100 unit/mL (3 mL) subcutaneous pen (Lantus Solostar U-100 Insulin) 30 unit subcut QHS DM 09/11/22 [History Last Taken 09/10/22] vitamin B complex and vitamin C no.20-folic acid 1 mg capsule 1 cap PO DAILY SUPPLEMENT 09/11/22 [History Last Taken 09/10/22] Allergy/AdvReac Type Severity Reaction Status Date / Time propofol Allergy Severe Other Verified 09/11/22 09:49 Surgical History H/O gastric bypass Social History household members: spouse Smoking Status: Never smoker alcohol intake: never substance use type: does not use ROS Constitutional Constitutional: Reports fatigue, malaise and weakness; Denies anorexia, chills or fever(s) Eyes Eyes: Denies change in vision ENT HEENT: Denies dysphagia, headache(s) or nasal discharge Cardiovascular Cardiovascular: Denies chest pain, dyspnea on exertion, edema, lightheadedness, orthopnea, palpitations or rapid heart rate Respiratory/Chest Respiratory/Chest: Denies cough, dyspnea, productive cough, shortness of breath at rest or shortness of breath with exertion Gastrointestinal Gastrointestinal: Reports nausea and vomiting; Denies abdominal pain, diarrhea or melena Genitourinary Genitourinary: Denies burning urination, dysuria or hematuria Musculoskeletal Musculoskeletal: Denies arthralgias or back pain Neurologic Neurologic: Denies confusion, dizziness, focal weakness or headache(s) Psychiatric Psychiatric: Denies anxiety or depression Endocrine Endocrinology: Denies change in body appearance Vital Signs Vital Signs Vital Signs: 09/11/22 09:50 09/11/22 09:58 09/11/22 10:37 Temperature 97.8 F Temperature Source Oral Pulse Rate 89 86 Respiratory Rate 20 H 14 Respiratory Effort Normal Non-Labored Respiratory Pattern Normal Blood Pressure 91/53 L 77/57 L Blood Pressure Mean 65 63 Pulse Ox 94 98 Oxygen Delivery Method Nasal Cannula Oxygen Flow Rate (L/min) 2 2 09/11/22 11:45 09/11/22 12:02 Temperature Temperature Source Pulse Rate 80 82 Respiratory Rate 12 Respiratory Effort Respiratory Pattern Blood Pressure 96/53 L 93/60 Blood Pressure Mean 67 71 Pulse Ox 100 Oxygen Delivery Method Nasal Cannula Oxygen Flow Rate (L/min) 2 Weight Weight: 76 lb 14.4 oz Body Mass Index (BMI) 12.0 Physical Exam Const alert, oriented x3 and no apparent distress General Appearance: cooperative HEENT normocephalic, head/scalp atraumatic, hearing grossly normal bilaterally and moist oral mucous membranes Mouth: oral and palatal mucosa normal Eyes PERRL, EOMs intact bilaterally and conjunctivae normal Resp normal respiratory effort, no retractions, no use of accessory muscles and clear to auscultation bilaterally Cardio regular rate, regular rhythm, S1 normal heart sound, S2 normal heart sound and no murmurs GI normal to inspection, nondistended, normoactive bowel sounds, soft to palpation and non-tender GI Narrative: PEG tube Extremity normal to inspection, full ROM and no clubbing, cyanosis or edema Neuro oriented x3, CN's II-XII intact bilaterally, moves all extremities and no focal motor deficits Sensorium / Orientation: awake and alert Motor Exam: strength 5/5 throughout Psych affect normal Results Lab / Micro Data Result Diagrams: 09/11/22 10:15 09/11/22 10:15 Labs: Laboratory Results - last 24 hr 09/11/22 09:53: POC Glucose 37 L* 09/11/22 10:15: WBC 17.3 H, RBC 2.23 L, Hgb 6.7 L, Hct 21.0 L, MCV 94.2, MCH 30.0, MCHC 31.9 L, RDW Std Deviation 68.8 H, RDW Coeff of Jacqueline 20.5 H, Plt Count 181, MPV 10.4, Immature Gran % (Auto) 1.700 H, Neut % (Auto) 84.7 H, Lymph % (Auto) 6.5 L, [place] % (Auto) 6.3, Eos % (Auto) 0.5, Baso % (Auto) 0.3, Absolute Neuts (auto) 14.7 H, Absolute Lymphs (auto) 1.12, Nucleated RBC % 0.1, Anisocytosis 1+ 09/11/22 10:15: PT 13.2, INR 1.0 09/11/22 10:15: Sodium 139, Potassium 2.6 L*, Chloride 101, Carbon Dioxide 33.0 H, Anion Gap 5, BUN 25 H, Creatinine 1.38 H, Estim Creat Clear Calc 24.47, Est GFR (MDRD) Af Amer 50 L, Est GFR (MDRD) Non-Af 42 L, BUN/Creatinine Ratio 18.1, Glucose 141 H, Calcium 7.9 L, Magnesium 2.0, Total Bilirubin 0.20, AST 25, ALT 18, Alkaline Phosphatase 79, Total Protein 4.7 L, Albumin 1.9 L, Globulin 2.8, Albumin/Globulin Ratio 0.7 L 09/11/22 10:15: Lactic Acid 1.7 09/11/22 10:15: Blood Type O NEGATIVE, Antibody Screen NEGATIVE 09/11/22 10:35: POC Glucose 130 H Rhythm Strip Rhythm Strip: Sinus Rhythm Rate: 85 Ectopy: PVC(s) Radiology Impression Chest X-Ray 09/11/22 10:09 IMPRESSION: Normal x-ray examination of the chest. Electronically Signed: Sunil Quintanilla MD at 10:57 EDT , Assessment & Plan Assessment/Plan (1) Anemia: (2) Hypokalemia: (3) Hypokalemia: PLAN: Plan #Acute metabolic encephalopathy due to hypoglycemia * says she was given her insulin today but hadnt eaten * she was found to be hypoglycemic. She was given D50 infusion and was still hypoglycemic when she arrived in the ED * she was given D10 infusion and orange juice. * hold hypoglycemic agents * will monitor blood sugars. * PT.OT on board. Fall precautions * #Acute on chronic anemia * likely due to anemia of chronic disease * Hb of 6.7 Bsline Hb is ~ 8-9 * being transfused with 2 units of PRBCs * check stool for occult blood * #Type 2 diabetes mellitus * oral meds and insulin on hold. ISS. Accuchecks ACHS. * #Probable aspiration pneumonia * she does have a chronic cough, but denies it has worsend * she used to be on tube feeds via PEG tube. She is now on oral diet. * CXR didnt show any cardiopulmonary process * I am not convinced she has aspiration pneumonia * will get speech therapy evaluation. * #Hypertension; on amlodipine #Seizure disorder: on keppra and topiramate as well as lamotrigine Depression: on venlafaxine #Hyperlipidemia: On statin DVT prophylaxis: SCDs Code status: * Patient counseled extensively about different types of CODE STATUS including full code, DNR CCA and DNR CCA. * Patient elects to be full code. * Total [id number] time 17 minutes. * Total time spent on evaluation and management of patient, reviewing chart and specialist notes, discussing plan with patient, discussion with nursing and ancillary staff as well as documentation: 83 mins Charges/Coding Visit Charges Inpatient E&M: 23001 Init Hosp L3 Procedures Hospitalists Procedures: 11873 Advncd Care Plan 30 Min
--- NOTE | 2022-09-11 13:11 | ED.RN ---
called [facility] to inform of pt's admission.
--- NOTE | 2022-09-11 13:13 | ED.RN ---
pt's informed this RN that pt has wound to backside
[2022-09-11] MEDS: Potassium Chloride Oral Soln 20 MEQ/15 ML UDC 40 MEQ PO (13:20)
[2022-09-11] MEDS: Potassium Chloride 10mEq/100mL 10 MEQ/100 ML IV.SOLN. 100 MEQ IV BOLUS ×2 (13:56→15:04)
[2022-09-11 16:21] LABS: Bedside Glucose 143 mg/dL (74-106)
[2022-09-11 19:41] LABS: Ferritin 414 ng/mL (8-252); Iron 192 ug/dL (50-170); Iron Binding Capacity,Total 164 ug/dL (250-450); PERCENT IRON SATURATION 117.1 % (15.0-55.0)
[2022-09-11] MEDS: levETIRAcetam 500 MG Tablet PO (21:17)
[2022-09-11] MEDS: Atorvastatin Calcium 20 MG Tablet PO (21:17)
[2022-09-11] MEDS: traZODone 50 MG Tablet PO (21:18)
[2022-09-11] MEDS: Insulin Lispro 100 UNIT/ML INSULN.PEN SC (21:30)
[2022-09-11 21:40] LABS: Bedside Glucose 288 mg/dL (74-106)
[2022-09-11] MEDS: 0.9% Saline Lock 10 ML Syringe IV (23:15)
[2022-09-11] MEDS: Collagenase 30gm Tube 1 APPLIC TOPICAL (23:15)
--- NOTE | 2022-09-12 04:17 | NURSING ---
Emergency documentation in use
[2022-09-12 06:00] VITALS: BMI 28.9
[2022-09-12 06:28] VITALS: BP 120/62; PULSE 90; RESP 16; TEMP 37.1; O2SAT 99
[2022-09-12] MEDS: Insulin Lispro 100 UNIT/ML INSULN.PEN SC ×3 (06:32→16:17)
[2022-09-12] MEDS: lamoTRIgine 25 MG Tablet PO (08:00)
[2022-09-12] MEDS: Cholecalciferol (VIT D3) 25 MCG TABLET (1,000 UNITS) 50 MCG PO (08:00)
[2022-09-12] MEDS: Folic Acid/Vitamin B Comp W-C 1 Capsule 1 CAP PO (08:00)
[2022-09-12] MEDS: amLODIPine 10 MG Tablet PO (08:00)
[2022-09-12] MEDS: levETIRAcetam 500 MG Tablet PO ×2 (08:00→21:01)
[2022-09-12] MEDS: Topiramate 50 MG Tablet PO (08:00)
[2022-09-12] MEDS: Venlafaxine XR 150 MG Capsule PO (08:01)
[2022-09-12] MEDS: Cyanocobalamin 500 MCG Tablet 1000 MCG PO (08:01)
[2022-09-12 09:35] LABS: Bedside Glucose 260 mg/dL (74-106)
[2022-09-12 11:15] VITALS: BP 108/55; PULSE 91; RESP 16; TEMP 36.8; O2SAT 99
[2022-09-12 11:40] LABS: Bedside Glucose 256 mg/dL (74-106)
[2022-09-12] MEDS: Heparin 10,000 UNITS/10 ML Vial IV (14:14)
--- NOTE | 2022-09-12 14:15 | DIALYSIS ---
Labs obtained per order from Art. Port of R.Chest HD CVC post initial discard from Art. Lumen. Art. Lumen then flushed and closed to lumen fill volume. Labs handed off to nursing.
[2022-09-12 14:26] LABS: Absolute Lymphocyte Count 1.61 X10^3/uL (0.83-4.51); Absolute Neutrophil Count 6.1 X10^3/uL (2.0-7.7); Basophil# 0.05 X10^3/uL; Basophil% 0.6 % (0-1); Eosinophil# 0.09 X10^3/uL; Hematocrit 25.7 % (37-47); Hemoglobin 8.5 g/dL (12.0-15.0); Lymphocyte # 1.61 X10^3/ul (0.83-4.51); Lymphocyte % 18.2 % (19-41); Mean Corp Hgb Conc 33.1 g/dL (32-36); Mean Corpuscular Hgb 29.7 pg (27.0-32.0); Mean Corpuscular Volume 89.9 fL (81-99); Mean Platelet Vol. 9.7 fl (6.2-12.0); Monocyte# 0.87 X10^3/uL; Monocyte% 9.8 % (0-10); NRBC Flagged by Analyzer 0.2 % (0-5); Neutrophil # 6.09 X10^3/uL (2.7-7.7); Neutrophil % 68.8 % (47-70); POSITIVE MORPHOLOGY YES; Platelet Count 249 K/mm3 (150-450); RBC Distribution Width CV 20.4 % (11.6-14.6); RBC Distribution Width SD 61.8 fl (35.1-43.9); Red Blood Count 2.86 M/mm3 (4.2-5.4); White Blood Count 8.9 K/mm3 (4.4-11.0)
[2022-09-12 14:27] LABS: Differential Indicated SCAN CRITERIA MET
[2022-09-12 14:40] LABS: Anion Gap 5 (5-15); BUN 33 mg/dL (7-18); BUN/Creat Ratio 14.9 RATIO (10-20); Calcium,Total 7.9 mg/dL (8.5-10.1); Chloride 102 mmol/L (98-107); Creatinine, Serum 2.21 mg/dL (0.55-1.02); EST Glomerular Filtration Rate 24 mL/min (>60); Est Glom Filt Rate - Afr Amer 29 mL/min (>60); Estimated Creatinine Clearance 22.95 ml/min; Glucose 322 mg/dL (74-106); Potassium 3.6 mmol/L (3.5-5.1); Sodium Level 136 mmol/L (136-145)
--- NOTE | 2022-09-12 14:43 | PN_ITS ---
Subjective Subjective Patient seen and examined. She says she feels much better today. He cough is improving. Her confusion is not recurred. She denies any fever, chills, palpitations, dizziness, nausea or vomiting. Review of systems otherwise negative. She has remained hemodynamically stable. Objective Data Objective Data Vital Signs: Vital Signs Temp Pulse Resp BP Pulse Ox O2 Del Method O2 Flow Rate 98.2 F 91 16 108/55 L 99 Room Air 2 09/12/22 11:15 09/12/22 11:15 09/12/22 11:15 09/12/22 11:15 09/12/22 11:15 09/12/22 14:08 09/11/22 12:02 Oxygen Flow Rate (L/min) 2 Oxygen Delivery Method Room Air Weight: 163 lb 5.8 oz Body Mass Index (BMI) 28.9 Intake & Output: Intake and Output for Last 24 Hours 09/10/22 09/11/22 09/12/22 23:59 23:59 23:59 Intake Total 792 / 1092 890 / 890 Balance 792 / 1092 890 / 890 Lab / Micro Data Result Diagrams: 09/12/22 14:00 09/12/22 14:00 Labs: Laboratory Results - last 24 hr 09/11/22 10:15: Crossmatch See Detail 09/11/22 10:15: Iron 192 H, TIBC 164 L, Iron Saturation 117.1 H, Ferritin 414 H 09/11/22 15:56: POC Glucose 143 H 09/11/22 21:21: POC Glucose 288 H 09/12/22 06:32: POC Glucose 260 H 09/12/22 11:08: POC Glucose 256 H 09/12/22 14:00: WBC 8.9, RBC 2.86 L, Hgb 8.5 L, Hct 25.7 L, MCV 89.9, MCH 29.7, MCHC 33.1, RDW Std Deviation 61.8 H, RDW Coeff of Jacqueline 20.4 H, Plt Count 249, MPV 9.7, Immature Gran % (Auto) 1.600 H, Neut % (Auto) 68.8, Lymph % (Auto) 18.2 L, [place] % (Auto) 9.8, Eos % (Auto) 1.0, Baso % (Auto) 0.6, Absolute Neuts (auto) 6.1, Absolute Lymphs (auto) 1.61, Nucleated RBC % 0.2 09/12/22 14:00: Sodium 136, Potassium 3.6, Chloride 102, Carbon Dioxide 29.0, Anion Gap 5, BUN 33 H, Creatinine 2.21 H, Estim Creat Clear Calc 22.95, Est GFR (MDRD) Af Amer 29 L, Est GFR (MDRD) Non-Af 24 L, BUN/Creatinine Ratio 14.9, Glucose 322 H, Calcium 7.9 L Rhythm Strip Rhythm Strip: Sinus Rhythm Rate: 85 Ectopy: PVC(s) Physical Exam Const alert, oriented x3 and no apparent distress General Appearance: cooperative HEENT normocephalic, head/scalp atraumatic, hearing grossly normal bilaterally and moist oral mucous membranes Eyes PERRL, EOMs intact bilaterally and conjunctivae normal Neck supple and no JVD Lymph Lymphatic: no lymphadenopathy noted Resp normal respiratory effort, no retractions, no use of accessory muscles and clear to auscultation bilaterally Cardio regular rate, regular rhythm, S1 normal heart sound, S2 normal heart sound and no murmurs GI normal to inspection, nondistended, normoactive bowel sounds, soft to palpation and non-tender GI Narrative: PEG tube Extremity normal to inspection, full ROM and no clubbing, cyanosis or edema Skin General Skin Exam: no breakdown Neuro oriented x3, CN's II-XII intact bilaterally, moves all extremities and no focal motor deficits Sensorium / Orientation: awake and alert Motor Exam: strength 5/5 throughout Psych thought process normal, cooperative and affect normal Appearance: appropriate Assessment & Plan Assessment/Plan (1) Anemia: (2) Hypokalemia: PLAN: Plan #Acute metabolic encephalopathy due to hypoglycemia * resolved. She is tolerating a diet * will resume insulin. ISS. Accuchecks ACHS * * #Acute on chronic anemia * Hb was 6.7. Now 8.5 today after being transfused with 2 units of PRBCs * Iron panel showed iron level of 192 with TIBC of 164 and iron saturation of 117.1 and elevated ferritin level. This is therefore not iron deficiency anemia and more represents anemia of chronic disease. * Had acute on chronic anemia during previous admissions 2 and was evaluated by GI. * Stool for occult blood ordered and is pending. * if anemia worsens, consider GI consult * #Type 2 diabetes mellitus * oral meds and insulin on hold. ISS. Accuchecks ACHS. * #Dysphagia * she used to be on tube feeds via PEG tube. She is now on oral diet. * CXR didnt show any cardiopulmonary process * I am not convinced she has aspiration pneumonia as she doesnt have a fever or productive cough or increasing oxygen requirements. * speech therapy o board; recommend continuing current diet of minced and moist with thin liquids and to continue monitoring respiratory status * will get speech therapy evaluation. * #Hypertension; on amlodipine #Seizure disorder: on keppra and topiramate as well as lamotrigine #Depression: on venlafaxine #Hyperlipidemia: On statin DVT prophylaxis: SCDs Code status: full code * Charges/Coding Visit Charges Inpatient E&M: 52009 Subs Hosp L2
[2022-09-12 14:57] LABS: Anisocytosis 1+
--- NOTE | 2022-09-12 16:29 | CON.PCM.RE_ITS ---
Assessment & Plan Assessment/Plan (1) MARY (acute kidney injury): (2) Chronic kidney disease, stage 3b: (3) HTN (hypertension): (4) Anemia: PLAN: Plan Impression/Plan: The patient is a 56-year-old woman with past history of type 2 diabetes mellitus, hypertension, hypothyroidism, and seizure disorder.? The patient was recently admitted to the hospital between 08/07/2022 until 08/21/2022 with circu latory shock and MARY from ATN. The patient returns to the hospital on 09/11/2022 with altered mental status possibly due to hypoglycemia. Nephrology is following for MARY on CKD. Acute kidney injury on chronic kidney disease stage IIIb. Prior to last hospital admission, baseline serum creatinine appears to be around 1.50 mg/dL based on the most recent laboratory test done through [facility] as outpatient on 07/14/2022.? Serum creatinine was 1.58 mg/dL on 05/15/2022.? The patient likely has CKD from diabetic nephropathy.? Her urine albumin to creatinine ratio from 11/20/2021 was 90.5 mg/g. MARY was due to ischemic ATN from circulatory shock. The patient had metformin overdose with metformin level on 08/09/2022 of 32 mcg/mL. The patient was started on dialysis, initially on CRRT. She was sent home on IHD on MWF schedule. The patient was dialyzed prior to admission yesterday. No need for dialysis today. We will continue to monitor for recovery of renal function. Hypokalemia. The patient presented with serum potassium of 2.6 mmol/L. This was an artifact of drawing blood to close to completion of dialysis. No need to replete potassium. Continue to monitor serum potassium level. Hypertension. BP is reasonably controlled on amlodipine. Will monitor BP. Anemia. Likely multifactorial. The patient likely has anemia of CKD as one of the explanation for anemia. The patient received 1 unit of packed red blood cell yesterday. Monitor hemoglobin. HPI Consult Data Date of Consult: 09/12/22 HPI Narrative Reason for Consultation: Dialysis dependent acute kidney injury HPI Narrative: The patient is a 56-year-old woman with past history of type 2 diabetes mellitus, hypertension, hypothyroidism, and seizure disorder. The patient was admitted to the hospital tween 08/07/2022 until 08/21/2022 with acute hypoxic respiratory failure and circulatory shock requiring mechanical ventilation and IV vasopressor. The patient was found to have markedly elevated metformin level. The patient developed dialysis dependent acute kidney injury. The patient is now on dialysis at [facility] on MWF schedule. At dialysis yesterday, the patient was found to be confused. She was transported to the emergency department where she was found to be hypoglycemic. The patient was also found to be anemic and required 1 unit of packed red blood cell transfusion yesterday. Today, she feels well. There is no chest pain, shortness of breath, nausea, vomiting, or edema. The patient denies abdominal pain, hematochezia, or melena. [facility] Medical History (Updated 09/12/22 @ 16:[address] Cal Nash MD) Anxiety and depression Chronic anemia Chronic pancreatitis Depression Diabetes mellitus, type 2 GERD (gastroesophageal reflux disease) HTN (hypertension) Hyperlipidemia Hypothyroidism Insomnia Seizure disorder Vitamin D deficiency Home Medications atorvastatin 20 mg tablet 20 mg feeding tube QHS CHOLESTEROL 07/04/18 [History Last Taken 09/10/22] insulin aspart U-100 100 unit/mL (3 mL) subcutaneous pen (Novolog FlexPen U-100 Insulin aspart) 40 units subcut BIDCM DM 07/04/18 [History Last Taken 09/11/22] venlafaxine 150 mg capsule,extended release 24 hr 150 mg PO DAILY MOOD 07/04/18 [History Last Taken 09/10/22] amlodipine 10 mg tablet 10 mg feeding tube DAILY HTN 08/07/22 [History Last Rigoberto en 09/11/22] cholecalciferol (vitamin D3) 25 mcg (1,000 unit) tablet 50 mcg feeding tube DAILY SUPPLEMENT 08/07/22 [History Last Taken 09/11/22] cyanocobalamin (vitamin B-12) 1,000 mcg capsule 1,000 mcg PO DAILY SUPPLEMENT 08/07/22 [History Last Taken 09/11/22] empagliflozin 10 mg tablet (Jardiance) 10 mg PO DAILY DM 08/07/22 [History Last Taken 09/11/22] lamotrigine 25 mg tablet 25 mg PO DAILY SEZIURES 08/07/22 [History Last Taken 09/11/22] levetiracetam 500 mg tablet 500 mg PO BID SEZIURES 08/07/22 [History Last Taken 09/11/22] topiramate 50 mg tablet 50 mg feeding tube DAILY SEZIURES 08/07/22 [History Last Taken 09/11/22] trazodone 50 mg tablet 50 mg feeding tube DAILY SLEEP 08/07/22 [History Last Taken 09/10/22] collagenase clostridium histo. 250 unit/gram topical ointment (Santyl) 1 applic topical QHS WOUND 09/11/22 [History Last Taken 09/10/22] esomeprazole magnesium 20 mg granules delayed release for susp (Nexium Packet) 20 mg PO DAILY HEARTBUN 09/11/22 [History Last Taken 09/11/22] insulin glargine 100 unit/mL (3 mL) subcutaneous pen (Lantus Solostar U-100 Insulin) 30 unit subcut QHS DM 09/11/22 [History Last Taken 09/10/22] vitamin B complex and vitamin C no.20-folic acid 1 mg capsule 1 cap PO DAILY SUPPLEMENT 09/11/22 [History Last Taken 09/10/22] Allergy/AdvReac Type Severity Reaction Status Date / Time propofol Allergy Severe Other Verified 09/11/22 09:49 Surgical History H/O gastric bypass Social History household members: spouse Smoking Status: Never smoker alcohol intake: never substance use type: does not use ROS ROS Narrative 03/30 ROS was done. It is otherwise noncontributory aside from what is already documented in HPI. Physical Exam Narrative General: Alert and oriented x3 in no apparent distress. HEENT: Normocephalic, atraumatic, mucous membrane moist erythema. PERRLA, EOMI, hearing is intact. Neck: Supple, no JVD. Trachea is midline, no thyromegaly. Heart: Normal S1, S2. No rubs, murmurs, or gallops. Lungs: Clear to auscultation bilaterally. Abdomen: Normal bowel sound, soft, nontender, no guarding or rebound. Extremities: No clubbing, cyanosis, or edema. Musculoskeletal: Full passive range of motion, no joint swelling. Psychiatric: Normal mood and affect. Lab / Micro Data Result Diagrams: 09/12/22 14:00 09/12/22 14:00 Labs: Laboratory Results - last 24 hr 09/11/22 10:15: Crossmatch See Detail 09/11/22 10:15: Iron 192 H, TIBC 164 L, Iron Saturation 117.1 H, Ferritin 414 H 09/11/22 21:21: POC Glucose 288 H 09/12/22 06:32: POC Glucose 260 H 09/12/22 11:08: POC Glucose 256 H 09/12/22 14:00: WBC 8.9, RBC 2.86 L, Hgb 8.5 L, Hct 25.7 L, MCV 89.9, MCH 29.7, MCHC 33.1, RDW Std Deviation 61.8 H, RDW Coeff of Jacqueline 20.4 H, Plt Count 249, MPV 9.7, Immature Gran % (Auto) 1.600 H, Neut % (Auto) 68.8, Lymph % (Auto) 18.2 L, [place] % (Auto) 9.8, Eos % (Auto) 1.0, Baso % (Auto) 0.6, Absolute Neuts (auto) 6.1, Absolute Lymphs (auto) 1.61, Nucleated RBC % 0.2, Anisocytosis 1+ 09/12/22 14:00: Sodium 136, Potassium 3.6, Chloride 102, Carbon Dioxide 29.0, Anion Gap 5, BUN 33 H, Creatinine 2.21 H, Estim Creat Clear Calc 22.95, Est GFR (MDRD) Af Amer 29 L, Est GFR (MDRD) Non-Af 24 L, BUN/Creatinine Ratio 14.9, Glucose 322 H, Calcium 7.9 L Micro: Microbiology 09/12/22 13:36 Stool Stool Occult Blood (ISAIAS) - Final Occult Blood Positive Rhythm Strip Rhythm Strip: Sinus Rhythm Rate: 85 Ectopy: PVC(s)
[2022-09-12 16:35] LABS: Bedside Glucose 297 mg/dL (74-106)
[2022-09-12] MEDS: Insulin Lispro 100 UNIT/ML INSULN.PEN 40 UNIT SC (17:03)
[2022-09-12 17:15] VITALS: BP 116/59; PULSE 80; RESP 18; TEMP 36.8; O2SAT 99
--- NOTE | 2022-09-12 19:13 | CON.PCM.GI_ITS ---
HPI Consult Data Date of Consult: 09/12/22 HPI Narrative HPI Narrative: TRUE AYALA, is a 56 F who presents?from hemodialysis with hypoglycemia. She has asked to has medical history including acute on chronic anemia, stage III CKD, heart block history of CVA who I saw on last admission in the hospital for progressive esophageal dysphagia with aspiration after being intubated. She had a PEG tube placed and was doing very well. As per the patient she has been eating by mouth. I was asked to see her today because of worsening anemia. When she left the hospital her hemoglobin was 9.6 and it is dropped down to 6.8. She cannot tell she has been having any black stools. She does not know if she has ever had a colonoscopy. She received 2 units of packed red blood cells and her hemoglobin is back up to 8.5. [facility] Medical History (Updated 09/12/22 @ 16:[address] Cal Nash MD) Anxiety and depression Chronic anemia Chronic pancreatitis Depression Diabetes mellitus, type 2 GERD (gastroesophageal reflux disease) HTN (hypertension) Hyperlipidemia Hypothyroidism Insomnia Seizure disorder Vitamin D deficiency Home Medications atorvastatin 20 mg tablet 20 mg feeding tube QHS CHOLESTEROL 07/04/18 [History Last Taken 09/10/22] insulin aspart U-100 100 unit/mL (3 mL) subcutaneous pen (Novolog FlexPen U-100 Insulin aspart) 40 units subcut BIDCM DM 07/04/18 [History Last Taken 09/11/22] venlafaxine 150 mg capsule,extended release 24 hr 150 mg PO DAILY MOOD 07/04/18 [History Last Taken 09/10/22] amlodipine 10 mg tablet 10 mg feeding tube DAILY HTN 08/07/22 [History Last Taken 09/11/22] cholecalciferol (vitamin D3) 25 mcg (1,000 unit) tablet 50 mcg feeding tube DAILY SUPPLEMENT 08/07/22 [History Last Taken 09/11/22] cyanocobalamin (vitamin B-12) 1,000 mcg capsule 1,000 mcg PO DAILY SUPPLEMENT 08/07/22 [History Last Taken 09/11/22] empagliflozin 10 mg tablet (Jardiance) 10 mg PO DAILY DM 08/07/22 [History Last Taken 09/11/22] lamotrigine 25 mg tablet 25 mg PO DAILY SEZIURES 08/07/22 [History Last Taken 09/11/22] levetiracetam 500 mg tablet 500 mg PO BID SEZIURES 08/07/22 [History Last Taken 09/11/22] topiramate 50 mg tablet 50 mg feeding tube DAILY SEZIURES 08/07/22 [History Last Taken 09/11/22] trazodone 50 mg tablet 50 mg feeding tube DAILY SLEEP 08/07/22 [History Last Taken 09/10/22] collagenase clostridium histo. 250 unit/gram topical ointment (Santyl) 1 applic topical QHS WOUND 09/11/22 [History Last Taken 09/10/22] esomeprazole magnesium 20 mg granules delayed release for susp (Nexium Packet) 20 mg PO DAILY HEARTBUN 09/11/22 [History Last Taken 09/11/22] insulin glargine 100 unit/mL (3 mL) subcutaneous pen (Lantus Solostar U-100 Insulin) 30 unit subcut QHS DM 09/11/22 [History Last Taken 09/10/22] vitamin B complex and vitamin C no.20-folic acid 1 mg capsule 1 cap PO DAILY SUPPLEMENT 09/11/22 [History Last Taken 09/10/22] Allergy/AdvReac Type Severity Reaction Status Date / Time propofol Allergy Severe Other Verified 09/11/22 09:49 Surgical History H/O gastric bypass Social History household members: spouse Smoking Status: Never smoker alcohol intake: never substance use type: does not use ROS Constitutional Constitutional: Reports fatigue, malaise and weakness; Denies anorexia, chills or fever(s) Eyes Eyes: Denies change in vision ENT HEENT: Denies dysphagia, headache(s) or nasal discharge Cardiovascular Cardiovascular: Denies chest pain, dyspnea on exertion, edema, lightheadedness, orthopnea, palpitations or rapid heart rate Respiratory/Chest Respiratory/Chest: Denies cough, dyspnea, productive cough, shortness of breath at rest or shortness of breath with exertion Gastrointestinal Gastrointestinal: Reports nausea and vomiting; Denies abdominal pain, diarrhea or melena Genitourinary Genitourinary: Denies burning urination, dysuria or hematuria Musculoskeletal Musculoskeletal: Denies arthralgias or back pain Neurologic Neurologic: Denies confusion, dizziness, focal weakness or headache(s) Psychiatric Psychiatric: Denies anxiety or depression Endocrine Endocrinology: Denies change in body appearance Physical Exam Narrative General: Alert and oriented x3 in no apparent distress. HEENT: Normocephalic, atraumatic, mucous membrane moist erythema. PERRLA, EOMI, hearing is intact. Neck: Supple, no JVD. Trachea is midline, no thyromegaly. Heart: Normal S1, S2. No rubs, murmurs, or gallops. Lungs: Clear to auscultation bilaterally. Abdomen: Normal bowel sound, soft, nontender, no guarding or rebound. Extremities: No clubbing, cyanosis, or edema. Musculoskeletal: Full passive range of motion, no joint swelling. Psychiatric: Normal mood and affect. Lab / Micro Data Result Diagrams: 09/12/22 14:00 09/12/22 14:00 Labs: Laboratory Results - last 24 hr 09/11/22 10:15: Crossmatch See Detail 09/11/22 10:15: Iron 192 H, TIBC 164 L, Iron Saturation 117.1 H, Ferritin 414 H 09/11/22 21:21: POC Glucose 288 H 09/12/22 06:32: POC Glucose 260 H 09/12/22 11:08: POC Glucose 256 H 09/12/22 14:00: WBC 8.9, RBC 2.86 L, Hgb 8.5 L, Hct 25.7 L, MCV 89.9, MCH 29.7, MCHC 33.1, RDW Std Deviation 61.8 H, RDW Coeff of Jacqueline 20.4 H, Plt Count 249, MPV 9.7, Immature Gran % (Auto) 1.600 H, Neut % (Auto) 68.8, Lymph % (Auto) 18.2 L, [place] % (Auto) 9.8, Eos % (Auto) 1.0, Baso % (Auto) 0.6, Absolute Neuts (auto) 6.1, Absolute Lymphs (auto) 1.61, Nucleated RBC % 0.2, Anisocytosis 1+ 09/12/22 14:00: Sodium 136, Potassium 3.6, Chloride 102, Carbon Dioxide 29.0, Anion Gap 5, BUN 33 H, Creatinine 2.21 H, Estim Creat Clear Calc 22.95, Est GFR (MDRD) Af Amer 29 L, Est GFR (MDRD) Non-Af 24 L, BUN/Creatinine Ratio 14.9, Glucose 322 H, Calcium 7.9 L 09/12/22 16:15: POC Glucose 297 H Micro: Microbiology 09/12/22 13:36 Stool Stool Occult Blood (ISAIAS) - Final Occult Blood Positive Rhythm Strip Rhythm Strip: Sinus Rhythm Rate: 85 Ectopy: PVC(s) Assessment & Plan Assessment/Plan (1) Anemia: (2) Hypokalemia: PLAN: Plan 56-year-old with extensive past medical history who comes in with acute hypoglycemia and discovered to have acute on chronic anemia status post transfusion of 2 units of packed red blood cells. At this time she does not want a colonoscopy but I think it is reasonable to repeat her upper endoscopy and possibly remove her PEG at according to speech therapy recommendations at the same time. This will be done on Wednesday as the patient is okay with having it done. I will put a prep in for her and hopefully she will take the prep in order to undergo both procedures to get the etiology of her acute on chronic anemia. Charges/Coding Visit Charges Inpatient E&M: 69805 Init Hosp L2
[2022-09-12 20:52] VITALS: BP 109/51; PULSE 88; RESP 16; TEMP 36.7; O2SAT 97
[2022-09-12] MEDS: Collagenase 30gm Tube 1 APPLIC TOPICAL (21:01)
[2022-09-12] MEDS: traZODone 50 MG Tablet PO (21:01)
[2022-09-12] MEDS: Atorvastatin Calcium 20 MG Tablet PO (21:01)
[2022-09-12 22:25] LABS: Bedside Glucose 89 mg/dL (74-106)
[2022-09-13 03:00] VITALS: BP 109/54; PULSE 84; RESP 18; TEMP 36.6; O2SAT 99
[2022-09-13 05:06] VITALS: BMI 29.5
--- NOTE | 2022-09-13 08:15 | PN.HOSP_ITS ---
Reason for Visit Reason for Visit: Diagnoses Anemia, unspecified (09/11/22) Hypokalemia (09/11/22) Essential (primary) hypertension (09/11/22) Acute kidney failure, unspecified (09/11/22) Chronic kidney disease, stage 3b (09/11/22) Subjective Subjective Reports having some leg swelling, otherwise no acute complaints, denies any blood in her stool, no nausea, no abdominal pain reported, no chest pain or shortness of breath Objective Data Objective Data Vital Signs: Vital Signs Temp Pulse Resp BP Pulse Ox O2 Del Method O2 Flow Rate 97.8 F 84 18 109/54 L 99 Room Air 2 09/13/22 03:00 09/13/22 03:00 09/13/22 03:00 09/13/22 03:00 09/13/22 03:00 09/13/22 03:00 09/11/22 12:02 Oxygen Flow Rate (L/min) 2 Oxygen Delivery Method Room Air Weight: 75.5 kg Body Mass Index (BMI) 29.5 Intake & Output: Intake and Output for Last 24 Hours 09/11/22 09/12/22 09/13/22 23:59 23:59 23:59 Intake Total 792 / 1092 1480 / 1480 Balance 792 / 1092 1480 / 1480 Lab / Micro Data Result Diagrams: 09/12/22 14:00 09/12/22 14:00 Labs: Laboratory Results - last 24 hr 09/12/22 06:32: POC Glucose 260 H 09/12/22 11:08: POC Glucose 256 H 09/12/22 14:00: WBC 8.9, RBC 2.86 L, Hgb 8.5 L, Hct 25.7 L, MCV 89.9, MCH 29.7, MCHC 33.1, RDW Std Deviation 61.8 H, RDW Coeff of Jacqueline 20.4 H, Plt Count 249, MPV 9.7, Immature Gran % (Auto) 1.600 H, Neut % (Auto) 68.8, Lymph % (Auto) 18.2 L, [place] % (Auto) 9.8, Eos % (Auto) 1.0, Baso % (Auto) 0.6, Absolute Neuts (auto) 6.1, Absolute Lymphs (auto) 1.61, Nucleated RBC % 0.2, Anisocytosis 1+ 03/25/23 14:00: Sodium 136, Potassium 3.6, Chloride 102, Carbon Dioxide 29.0, Anion Gap 5, BUN 33 H, Creatinine 2.21 H, Estim Creat Clear Calc 22.95, Est GFR (MDRD) Af Amer 29 L, Est GFR (MDRD) Non-Af 24 L, BUN/Creatinine Ratio 14.9, Glucose 322 H, Calcium 7.9 L 09/12/22 16:15: POC Glucose 297 H 09/12/22 20:58: POC Glucose 89 Micro: Microbiology 09/11/22 11:20 Blood Culture (Wb) - Right Hand Blood Culture - Preliminary No growth in 48 hours. 09/11/22 10:15 Blood Culture (Wb) - Right Hand Blood Culture - Preliminary No growth in 48 hours. 09/12/22 13:36 Stool Stool Occult Blood (ISAIAS) - Final Occult Blood Positive Rhythm Strip Rhythm Strip: Sinus Rhythm Rate: 85 Ectopy: PVC(s) Physical Exam Narrative General: Alert, oriented, no apparent distress HEENT: Atraumatic, normocephalic Eyes: Anicteric, normal conjunctiva, extraocular movements grossly intact Neck: Supple Respiratory: Clear to auscultation bilaterally, normal respiratory effort Cardiovascular: Regular rate and rhythm GI: Soft, nontender, nondistended Extremities: No edema Musculoskeletal: Moving all extremities Neuro: No overt focal neurological deficits Skin: No rashes appreciated Psych: Cooperative Assessment & Plan Assessment/Plan (1) Anemia: (2) HTN (hypertension): (3) Chronic kidney disease, stage 3b: (4) MARY (acute kidney injury): PLAN: Plan #Acute on chronic anemia -Hb was 6.7. 8.5 on 09/12 with 2 units of PRBCs. No overt blood appreciated but pt very difficult stick and yet to get a.m. labs -Iron panel showed iron level of 192 with TIBC of 164 and iron saturation of 117.1 and elevated ferritin level.? This is therefore not iron deficiency anemia and more represents anemia of chronic disease. -Had acute on chronic anemia during previous admissions 2 and was evaluated by GI. -Stool for occult blood ordered and was positive, GI evaluated and patient for upper endoscopy tomorrow plus or minus colonoscopy if she is agreeable -Cont PPI BID #Acute metabolic encephalopathy due to hypoglycemia -resolved. To be evaluated by speech for possible PEG removal tomorrow during EGD -insulin lispro BID continued, long acting held, sliding scale also instiutide as well as jardiance -cont to adjust regimen #MARY on CKD stage IIIb on HD M// -Nephrology following #Type 2 diabetes mellitus insulin lispro BID continued, long acting held, sliding scale also instiutide as well as jardiance -cont to adjust regimen #Hypertension; -on amlodipine #Seizure disorder: -on keppra and topiramate as well as lamotrigine #Depression: -on venlafaxine #Hyperlipidemia: -On statin DVT prophylaxis: SCDs Charges/Coding Visit Charges Inpatient E&M: 71055 Subs Hosp L2
[2022-09-13 08:24] VITALS: BP 114/52; PULSE 87; RESP 16; TEMP 37; O2SAT 97
[2022-09-13] MEDS: Venlafaxine XR 150 MG Capsule PO (08:30)
[2022-09-13] MEDS: Topiramate 50 MG Tablet PO (08:30)
[2022-09-13] MEDS: Cyanocobalamin 500 MCG Tablet 1000 MCG PO (08:30)
[2022-09-13] MEDS: amLODIPine 10 MG Tablet PO (08:30)
[2022-09-13] MEDS: Cholecalciferol (VIT D3) 25 MCG TABLET (1,000 UNITS) 50 MCG PO (08:30)
[2022-09-13] MEDS: Folic Acid/Vitamin B Comp W-C 1 Capsule 1 CAP PO (08:30)
[2022-09-13] MEDS: Empagliflozin 10 MG Tablet PO (10:58)
[2022-09-13] MEDS: lamoTRIgine 25 MG Tablet PO (11:27)
[2022-09-13] MEDS: levETIRAcetam 500 MG Tablet PO (11:27)
[2022-09-13] MEDS: Insulin Lispro 100 UNIT/ML INSULN.PEN SC ×2 (11:28→16:44)
[2022-09-13 12:45] LABS: Bedside Glucose 244 mg/dL (74-106)
[2022-09-13 12:45] LABS: Bedside Glucose 151 mg/dL (74-106)
[2022-09-13 14:20] VITALS: BP 116/61; PULSE 88; RESP 16; TEMP 37.1; O2SAT 96
[2022-09-13] MEDS: Bisacodyl 5 MG Tablet 20 MG PO (14:43)
[2022-09-13] MEDS: Pantoprazole Sodium 40 MG Tablet PO ×2 (14:43→21:44)
[2022-09-13] MEDS: Polyethylene Glycol 3350 BOWEL PREP PO (16:18)
[2022-09-13] MEDS: Insulin Lispro 100 UNIT/ML INSULN.PEN 30 UNIT SC (16:45)
--- NOTE | 2022-09-13 17:39 | PCM.PN.REN ---
Subjective Subjective Following for dialysis dependent MARY on CKD. The patient denies chest pain, shortness of breath, or nausea. Objective Data Objective Data Vital Signs: Vital Signs Temp Pulse Resp BP Pulse Ox O2 Del Method O2 Flow Rate 98.8 F 88 16 116/61 96 Room Air 2 09/13/22 14:20 09/13/22 14:20 09/13/22 14:20 09/13/22 14:20 09/13/22 14:20 09/13/22 14:40 09/11/22 12:02 Oxygen Flow Rate (L/min) 2 Oxygen Delivery Method Room Air Weight: 75.5 kg Body Mass Index (BMI) 29.5 Intake & Output: Intake and Output for Last 24 Hours 09/11/22 09/12/22 09/13/22 23:59 23:59 23:59 Intake Total 792 / 1092 1480 / 1480 350 / 350 Balance 792 / 1092 1480 / 1480 350 / 350 Lab / Micro Data Result Diagrams: 09/12/22 14:00 09/12/22 14:00 Labs: Laboratory Results - last 24 hr 09/12/22 20:58: POC Glucose 89 09/13/22 08:12: POC Glucose 151 H 09/13/22 11:26: POC Glucose 244 H Micro: Microbiology 09/11/22 11:20 Blood Culture (Wb) - Right Hand Blood Culture - Preliminary No growth in 48 hours. 09/11/22 10:15 Blood Culture (Wb) - Right Hand Blood Culture - Preliminary No growth in 48 hours. 09/12/22 13:36 Stool Stool Occult Blood (ISAIAS) - Final Occult Blood Positive Rhythm Strip Rhythm Strip: Sinus Rhythm Rate: 85 Ectopy: PVC(s) Physical Exam Narrative General: Alert and oriented x3 in no apparent distress. Heart: Normal S1, S2. No rubs, murmurs, or gallops. Lungs: Clear to auscultation bilaterally. Abdomen: Normal bowel sound, soft, nontender, no guarding or rebound. Extremities: No clubbing, cyanosis, or edema. Assessment & Plan Assessment/Plan (1) MARY (acute kidney injury): (2) Chronic kidney disease, stage 3b: (3) HTN (hypertension): (4) Anemia: PLAN: Plan Impression/Plan: The patient is a 56-year-old woman with past history of type 2 diabetes mellitus, hypertension, hypothyroidism, and seizure disorder.? The patient was recently admitted to the hospital between 08/07/2022 until 08/21/2022 with circulatory shock and MARY from ATN. The patient returns to the hospital on 09/11/2022 with altered mental status possibly due to hypoglycemia. Nephrology is following for MARY on CKD. Acute kidney injury on chronic kidney disease stage IIIb. Prior to last hospital admission, baseline serum creatinine appears to be around 1.50 mg/dL based on the most recent laboratory test done through [facility] as outpatient on 07/14/2022.? Serum creatinine was 1.58 mg/dL on 05/15/2022.? The patient likely has baseline of CKD from diabetic nephropathy.? Her urine albumin to creatinine ratio from 11/20/2021 was 90.5 mg/g. MARY was due to ischemic ATN from circulatory shock. The patient also had metformin overdose with metformin level on 08/09/2022 of 32 mcg/mL. The patient was started on dialysis, initially on CRRT. She was sent home on IHD on MWF schedule. The patient was dialyzed prior to admission on 09/11/2022. No need for dialysis today. It does not look like she has recovered much renal function yet. Therefore, I will arrange for dialysis for her tomorrow on 09/14/2022. We will continue to monitor for recovery of renal function. Hypokalemia. The patient presented with serum potassium of 2.6 mmol/L. This was an artifact of drawing blood to close to completion of dialysis. No need to replete potassium. Continue to monitor serum potassium level. Hypertension. BP is reasonably controlled on amlodipine. Will monitor BP. Anemia. Likely multifactorial. The patient likely has anemia of CKD as one of the explanation for anemia. The patient received 1 unit of packed red blood cell yesterday. Monitor hemoglobin.
[2022-09-13 17:40] LABS: Bedside Glucose 295 mg/dL (74-106)
[2022-09-13 21:25] VITALS: BP 116/57; PULSE 88; RESP 18; TEMP 36.6; O2SAT 96
[2022-09-13] MEDS: Collagenase 30gm Tube 1 APPLIC TOPICAL (21:38)
[2022-09-13] MEDS: Atorvastatin Calcium 20 MG Tablet PO (21:38)
[2022-09-13 22:31] LABS: Bedside Glucose 78 mg/dL (74-106)
[2022-09-13 22:31] LABS: Bedside Glucose 31 mg/dL (74-106)
[2022-09-14] VITALS (10 sets, daily range): BP systolic 94–119; BP diastolic 53–73; PULSE 79–88; RESP 16–18; TEMP 36.6–37.6; O2SAT 92–100; BMI 29.5; BMI 28.0
--- NOTE | 2022-09-14 | COLBX_PTH ---
PATIENT: TRUE AYALA LOC: PCU U#:[id number] AGE/SX: 56/F ROOM: [facility] RE09/11/[address]: Dr. Cecilia Aguillon MD : 1965 BED: 1 DIS: 09/17/2022 SPEC #: [id number] RECD: 09/14/22 13:51 STATUS: RUDI RETyrese #: [id number] PATTIE: 09/14/22 00:[address]: Eric Hameed DEPT: SURGICAL PATHOLOGY RECD BY: Vaibhav Grider ENTERED: 09/15/22 09:47 SP TYPE: COLON BX OTHR DR: MD Dr. Radha Hinkle MD Dr. Paige Pierce, MD Dr. Victor Velasquez, MD Tissues: Cecum, NOS Procedures: Surgery Specimen Level IV Comments: @ Ordering doctor for SUIV edited from to @ by JAYCE at 09/15/22 1443 @ Submitting doctor edited from to @ by RGOOD at 09/15/22 1443 HEADER OPERATION: Colonoscopy with electrohemostasis and biopsy, EGD ([facility]) PRE-OP DIAGNOSIS: Anemia, hypokalemia TISSUE SUBMITTED: Cecum biopsy MICROSCOPIC DIAGNOSIS Cecum, biopsy: No pathologic change. AM:seamus 09/16/2022 MICROSCOPIC DESCRIPTION Slides are reviewed. GROSS DESCRIPTION Received in fixative is one container labeled with the patient's name and designated cecum biopsy. The specimen consists of two irregular fragments of light miller soft tissue that in aggregate measure 0.6 x 0.3 x 0.1 cm. The specimen is totally submitted in one cassette. / SJ:seamus 09/15/2022 :5 [facility]: [id number]
[2022-09-14 04:54] LABS: Absolute Lymphocyte Count 2.04 X10^3/uL (0.83-4.51); Basophil# 0.08 X10^3/uL; Basophil% 0.7 % (0-1); Eosinophil# 0.18 X10^3/uL; Eosinophils% 1.6 % (0-5); Hematocrit 26.1 % (37-47); Hemoglobin 8.4 g/dL (12.0-15.0); Lymphocyte # 2.04 X10^3/ul (0.83-4.51); Lymphocyte % 18.5 % (19-41); Mean Corp Hgb Conc 32.2 g/dL (32-36); Mean Corpuscular Hgb 29.7 pg (27.0-32.0); Mean Corpuscular Volume 92.2 fL (81-99); Mean Platelet Vol. 9.8 fl (6.2-12.0); Monocyte% 5.5 % (0-10); NRBC Flagged by Analyzer 0.5 % (0-5); Neutrophil # 7.96 X10^3/uL (2.7-7.7); Neutrophil % 72.4 % (47-70); POSITIVE MORPHOLOGY YES; Platelet Count 321 K/mm3 (150-450); RBC Distribution Width CV 20.2 % (11.6-14.6); Red Blood Count 2.83 M/mm3 (4.2-5.4)
[2022-09-14 05:01] LABS: Anion Gap 7 (5-15); BUN 35 mg/dL (7-18); BUN/Creat Ratio 14.8 RATIO (10-20); Chloride 105 mmol/L (98-107); Creatinine, Serum 2.36 mg/dL (0.55-1.02); EST Glomerular Filtration Rate 22 mL/min (>60); Est Glom Filt Rate - Afr Amer 27 mL/min (>60); Estimated Creatinine Clearance 21.49 ml/min; Glucose 175 mg/dL (74-106); Sodium Level 138 mmol/L (136-145)
[2022-09-14 05:22] LABS: International Normalized Ratio 1.1; Partial Thromboplast Time 24.7 Seconds (24.1-36.2); Prothrombin Time (Protime)PT. 13.5 SECONDS (11.7-14.9)
[2022-09-14 05:30] LABS: Anisocytosis 2+
[2022-09-14 05:31] LABS: Differential Indicated SCAN CRITERIA MET
--- NOTE | 2022-09-14 05:55 | EKG12_ITS ---
Test Reason : AM EKG Blood Pressure : / mmHG Vent. Rate : 084 BPM Atrial Rate : 084 BPM P-R Int : 150 ms QRS Dur : 078 ms QT Int : 370 ms P-R-T Axes : 019 015 020 degrees QTc Int : 437 ms Normal sinus rhythm Low voltage QRS Nonspecific T wave abnormality Abnormal ECG When compared with ECG of 11-SEP-2022 10:18, MANUAL COMPARISON REQUIRED, DATA IS UNCONFIRMED Confirmed by WILLIE DUONG, HANSA ([id number]), editor managing director MARIALUISA VERA ([id number]) on 09/15/2022 9:04:42 AM Referred By: Confirmed By:HANSA TAPIA MD
[2022-09-14 06:50] LABS: Bedside Glucose 150 mg/dL (74-106)
[2022-09-14] MEDS: Potassium Chloride Oral Tablet 20 MEQ 60 MEQ PO (08:59)
[2022-09-14] MEDS: Venlafaxine XR 150 MG Capsule PO (09:00)
[2022-09-14] MEDS: levETIRAcetam 500 MG Tablet PO ×2 (09:01→23:00)
[2022-09-14] MEDS: lamoTRIgine 25 MG Tablet PO (09:01)
[2022-09-14] MEDS: Pantoprazole Sodium 40 MG Tablet PO ×2 (09:02→23:01)
[2022-09-14] MEDS: amLODIPine 10 MG Tablet PO (09:02)
[2022-09-14] MEDS: Topiramate 50 MG Tablet PO (09:02)
[2022-09-14] MEDS: Cyanocobalamin 500 MCG Tablet 1000 MCG PO (09:03)
[2022-09-14] MEDS: Cholecalciferol (VIT D3) 25 MCG TABLET (1,000 UNITS) 50 MCG PO (09:03)
[2022-09-14] MEDS: 0.9% Saline Lock 10 ML Syringe IV (09:03)
[2022-09-14 09:45] LABS: Hemoglobin A1c 6.5 % (3.8-5.6)
--- NOTE | 2022-09-14 10:33 | CASEMGMT ---
SW spoke with patient regarding discharge planning. Pt declines wanting to return to [facility]. A list of?SNF?providers including quality and resource use data and consistent with patient?s preferred geographic region, medical needs, and insurance network were provided from the [facility] Guide. Naila Vernon MSW, GREENHOUSE TECHNICIAN
--- NOTE | 2022-09-14 10:57 | PN.HOSP_ITS ---
Reason for Visit Reason for Visit: Diagnoses Anemia, unspecified (09/11/22) Hypokalemia (09/11/22) Essential (primary) hypertension (09/11/22) Acute kidney failure, unspecified (09/11/22) Chronic kidney disease, stage 3b (09/11/22) Subjective Subjective Evaluated prior to EGD and colonoscopy, denies any blood in stool, no nausea Objective Data Objective Data Vital Signs: Vital Signs Temp Pulse Resp BP Pulse Ox O2 Del Method O2 Flow Rate 99.6 F H 83 16 115/53 L 100 Room Air 2 09/14/22 07:44 09/14/22 07:44 09/14/22 07:44 09/14/22 07:44 09/14/22 07:44 09/14/22 07:44 09/11/22 12:02 Oxygen Flow Rate (L/min) 2 Oxygen Delivery Method Room Air Weight: 71.8 kg Body Mass Index (BMI) 28.0 Intake & Output: Intake and Output for Last 24 Hours 09/12/22 09/13/22 09/14/22 23:59 23:59 23:59 Intake Total 1480 / 1480 1260 / 1260 Output Total 780 / 780 Balance 1480 / 1480 1260 / 480 -780 / -780 Lab / Micro Data Result Diagrams: 09/14/22 04:35 09/14/22 04:35 Labs: Laboratory Results - last 24 hr 09/13/22 08:12: POC Glucose 151 H 09/13/22 11:26: POC Glucose 244 H 09/13/22 16:42: POC Glucose 295 H 09/13/22 21:27: POC Glucose 31 L* 09/13/22 22:08: POC Glucose 78 09/14/22 04:35: WBC 11.0, RBC 2.83 L, Hgb 8.4 L, Hct 26.1 L, MCV 92.2, MCH 29.7, MCHC 32.2, RDW Std Deviation 61.0 H, RDW Coeff of Jacqueline 20.2 H, Plt Count 321, MPV 9.8, Immature Gran % (Auto) 1.300 H, Neut % (Auto) 72.4 H, Lymph % (Auto) 18.5 L , [place] % (Auto) 5.5, Eos % (Auto) 1.6, Baso % (Auto) 0.7, Absolute Neuts (auto) 8.0 H, Absolute Lymphs (auto) 2.04, Nucleated RBC % 0.5, Anisocytosis 2+ 09/14/22 04:35: Sodium 138, Potassium 3.0 L, Chloride 105, Carbon Dioxide 26.0, Anion Gap 7, BUN 35 H, Creatinine 2.36 H, Estim Creat Clear Calc 21.49, Est GFR (MDRD) Af Amer 27 L, Est GFR (MDRD) Non-Af 22 L, BUN/Creatinine Ratio 14.8, Glucose 175 H, Calcium 8.0 L 09/14/22 04:35: PT 13.5, INR 1.1, APTT 24.7 09/14/22 04:35: Hemoglobin A1c 6.5 H 09/14/22 06:23: POC Glucose 150 H Micro: Microbiology 09/11/22 11:20 Blood Culture (Wb) - Right Hand Blood Culture - Preliminary No growth in 48 hours. 09/11/22 10:15 Blood Culture (Wb) - Right Hand Blood Culture - Preliminary No growth in 48 hours. 09/12/22 13:36 Stool Stool Occult Blood (ISAIAS) - Final Occult Blood Positive Rhythm Strip Rhythm Strip: Sinus Rhythm Rate: 85 Ectopy: PVC(s) Physical Exam Narrative General: Alert, oriented, no apparent distress HEENT: Atraumatic, normocephalic Eyes: Anicteric, normal conjunctiva, extraocular movements grossly intact Neck: Supple Respiratory: Clear to auscultation bilaterally, normal respiratory effort Cardiovascular: Regular rate and rhythm GI: Soft, nontender, nondistended Extremities: No edema Musculoskeletal: Moving all extremities Neuro: No overt focal neurological deficits Skin: No rashes appreciated Psych: Cooperative Assessment & Plan Assessment/Plan (1) Anemia: (2) HTN (hypertension): (3) Chronic kidney disease, stage 3b: (4) MARY (acute kidney injury): PLAN: Plan #Acute on chronic anemia -Hb was 6.7. 8.5 on 09/12 with 2 units of PRBCs. No overt blood appreciated but pt very difficult stick and yet to get a.m. labs -Iron panel showed iron level of 192 with TIBC of 164 and iron saturation of 117.1 and elevated ferritin level.? This is therefore not iron deficiency anemia and more represents anemia of chronic disease. -Had acute on chronic anemia during previous admissions 2 and was evaluated by GI. -Stool for occult blood ordered and was positive, GI evaluated and patient for upper endoscopy tomorrow plus or minus colonoscopy if she is agreeable -Cont PPI BID -09/14: No overt abnormalities on EGD, colonoscopy demonstrated 3 bleeding colonic angiodysplastic lesions which were treated with a heater probe and also pseudomembranous enterocolitis. #Pseudomembranous enterocolitis -Seen on colonoscopy, is recommended for vancomycin 125 mg 4 times daily for 2 weeks, path pending and will need repeat colonoscopy, timing will depend on path from scopes today #Acute metabolic encephalopathy due to hypoglycemia -resolved. To be evaluated by speech for possible PEG removal tomorrow during EGD -insulin lispro BID continued, long acting held, sliding scale also instiutide as well as jardiance -cont to adjust regimen #MARY on CKD stage IIIb on HD M/W/F -Nephrology following #Type 2 diabetes mellitus insulin lispro BID continued, long acting held, sliding scale also instiutide as well as jardiance -cont to adjust regimen #Hypertension; -on amlodipine #Seizure disorder: -on keppra and topiramate as well as lamotrigine #Depression: -on venlafaxine #Hyperlipidemia: -On statin DVT prophylaxis: SCDs Charges/Coding Visit Charges Inpatient E&M: 03552 Subs Hosp L2
--- NOTE | 2022-09-14 11:55 | NURSING ---
Pt left the floor to OR.
[2022-09-14] MEDS: 0.9% Normal Saline 1,000 ML 15 ML IV (12:23)
[2022-09-14 12:25] LABS: Bedside Glucose 184 mg/dL (74-106)
--- NOTE | 2022-09-14 13:35 | OP.EGD_ITS ---
Patient Name: Lucía Lowe Procedure Date: 09/14/2022 12:56 PM Date of : 1965 Age: 56 Procedure: Upper GI endoscopy Indications: Iron deficiency anemia Providers: Eric Hameed DO Medicines: Monitored Anesthesia Care Patient Profile: This is a 56 year old female. Refer to note in patient chart for documentation of history and physical. Patient has symptoms of chronic dysphagia. Complications: No immediate complications. Procedure: Pre-Anesthesia Assessment: - Prior to the procedure, a History and Physical was performed, and patient medications and allergies were reviewed. The patient is competent. The risks and benefits of the procedure and the sedation options and risks were discussed with the patient. All questions were answered and informed consent was obtained. Patient identification and proposed procedure were verified by the physician in the pre-procedure area. Mental Status Examination: alert and oriented. Airway Examination: normal oropharyngeal airway and neck mobility. Respiratory Examination: clear to auscultation. CV Examination: normal. Prophylactic Antibiotics: The patient does not require prophylactic antibiotics. Prior Anticoagulants: The patient has taken no previous anticoagulant or antiplatelet agents. After reviewing the risks and benefits, the patient was deemed in satisfactory condition to undergo the procedure. The anesthesia plan was to use monitored anesthesia care (MAC). Immediately prior to administration of medications, the patient was re-assessed for adequacy to receive sedatives. The heart rate, respiratory rate, oxygen saturations, blood pressure, adequacy of pulmonary ventilation, and response to care were monitored throughout the procedure. The physical status of the patient was re-assessed after the procedure. After obtaining informed consent, the endoscope was passed under direct vision. Throughout the procedure, the patient's blood pressure, pulse, and oxygen saturations were monitored continuously. The Colonoscope was introduced through the mouth, and advanced to the second part of duodenum. The upper GI endoscopy was accomplished without difficulty. The patient tolerated the procedure well. Scope In: 1:10:35 PM Scope Out: 1:12:31 PM Total Procedure Duration Time 0 hours 1 minute 56 seconds Findings: Evidence of a fundoplication was found in the cardia. The wrap appeared not intact. This was traversed. Coagulation for hemostasis using heater probe was successful. Estimated blood loss was minimal. A large hiatal hernia was present. There was evidence of an intact gastrostomy with a patent G-tube present in the gastric body. This was characterized by healthy appearing mucosa. The second portion of the duodenum was normal. Patchy, white plaques were found in the upper third of the esophagus. Biopsies were taken with a cold forceps for histology. Verification of patient identification for the specimen was done. Estimated blood loss was minimal. Impression: - Normal esophagus. - A fundoplication was found. The wrap appears not intact. Treated with a heater probe. - Large hiatal hernia. - Intact gastrostomy with a patent G-tube present characterized by healthy appearing mucosa. - Normal second portion of the duodenum. - No specimens collected. Recommendation: - [facility] for [facility] care. - Resume previous diet. - Continue present medications. - Await pathology results. - Diflucan (fluconazole) 100 mg PO daily for 2 weeks. Procedure Code(s): --- Professional --- 83522, 59, Esophagogastroduodenoscopy, flexible, transoral; with control of bleeding, any method 92635, Esophagogastroduodenoscopy, flexible, transoral; with biopsy, single or multiple CPT copyright 2017 [employer]. All rights reserved. The codes documented in this report are preliminary and upon php magento developer review may be revised to meet current compliance requirements. Eric Hameed DO 09/14/2022 1:35:27 PM This report has been signed electronically. Number of Addenda: 0 Note Initiated On: 09/14/2022 12:56 PM
--- NOTE | 2022-09-14 13:37 | OP.CCLET_ITS ---
09/14/2022 Abdirashid Anthony [address] [place] [address] Re : Upper GI endoscopy procedure for Lucía Lowe Dear Dr. Anthony This procedure was performed on Wednesday, September 14, 2022. My impressions and recommendations are as follows: Impressions : - Normal esophagus. - A fundoplication was found. The wrap appears not intact. Treated with a heater probe. - Large hiatal hernia. - Intact gastrostomy with a patent G-tube present characterized by healthy appearing mucosa. - Normal second portion of the duodenum. - No specimens collected. Recommendations : - Return patient to [facility] for ongoing care. - Resume previous diet. - Continue present medications. - Await pathology results. - Diflucan (fluconazole) 100 mg PO daily for 2 weeks. My findings are described in the full procedure note, which is enclosed. If I can be of further assistance, please feel free to contact me at . Sincerely, Eric Hameed, 09/14/2022 1:35:27 PM This report has been signed electronically.
--- NOTE | 2022-09-14 13:44 | OP.COLON_ITS ---
Patient Name: Lucía Lowe Procedure Date: 09/14/2022 1:12 PM Date of : 1965 Age: 56 Procedure: Colonoscopy Indications: Clinically significant diarrhea of unexplained origin, Iron deficiency anemia Providers: Eric Hameed DO Medicines: Monitored Anesthesia Care Patient Profile: This is a 56 year old female. Refer to note in patient chart for documentation of history and physical. Patient has symptoms of chronic dysphagia. Last Colonoscopy: date unknown. Unable to locate last colonoscopy report. Complications: No immediate complications. Procedure: Pre-Anesthesia Assessment: - Prior to the procedure, a History and Physical was performed, and patient medications and allergies were reviewed. The patient is competent. The risks and benefits of the procedure and the sedation options and risks were discussed with the patient. All questions were answered and informed consent was obtained. Patient identification and proposed procedure were verified by the physician in the pre-procedure area. Mental Status Examination: alert and oriented. Airway Examination: normal oropharyngeal airway and neck mobility. Respiratory Examination: clear to auscultation. CV Examination: normal. Prophylactic Antibiotics: The patient does not require prophylactic antibiotics. Prior Anticoagulants: The patient has taken no previous anticoagulant or antiplatelet agents. After reviewing the risks and benefits, the patient was deemed in satisfactory condition to undergo the procedure. The anesthesia plan was to use monitored anesthesia care (MAC). Immediately prior to administration of medications, the patient was re-assessed for adequacy to receive sedatives. The heart rate, respiratory rate, oxygen saturations, blood pressure, adequacy of pulmonary ventilation, and response to care were monitored throughout the procedure. The physical status of the patient was re-assessed after the procedure. After I obtained informed consent, the scope was passed under direct vision. Throughout the procedure, the patient's blood pressure, pulse, and oxygen saturations were monitored continuously. The Colonoscope was introduced through the anus and advanced to the cecum, identified by appendiceal orifice and ileocecal valve. The colonoscopy was performed without difficulty. The patient tolerated the procedure well. The quality of the bowel preparation was fair. Scope In: 1:16:07 PM Scope Withdrawal Time 0 hours 4 minutes 47 seconds Scope Out: 1:28:22 PM Total Procedure Duration Time 0 hours 12 minutes 15 seconds Findings: The perianal and digital rectal examinations were normal. A moderate amount of stool was found in the rectum, in the sigmoid colon, in the descending colon, at the splenic flexure, in the transverse colon, in the ascending colon and in the cecum. Lavage of the area was performed using a moderate amount of sterile water, resulting in incomplete clearance with fair visualization. Three medium-sized localized angiodysplastic lesions with bleeding were found in the cecum. Coagulation for hemostasis using heater probe was successful. A diffuse pseudomembrane was found in the recto-sigmoid colon, in the descending colon, in the transverse colon, at the hepatic flexure, in the ascending colon and in the cecum. Biopsies were taken with a cold forceps for histology. Fluid aspiration was performed through the scope suction channel. The amount of fluid collected was 10 mL. Sample(s) were sent for Clostridium difficile. Verification of patient identification for the specimen was done. Estimated blood loss was minimal. Impression: - Preparation of the colon was fair. - Stool in the rectum, in the sigmoid colon, in the descending colon, at the splenic flexure, in the transverse colon, in the ascending colon and in the cecum. - Three bleeding colonic angiodysplastic lesions. Treated with a heater probe. - Pseudomembranous enterocolitis. Recommendation: - Return patient to [facility] for ongoing care. - Resume previous diet. - Vancocin (vancomycin) 125 mg PO QID for 2 weeks. - Repeat colonoscopy is recommended for surveillance. The colonoscopy date will be determined after pathology results from today's exam become available for review. - Continue present medications. Procedure Code(s): --- Professional --- 95702, 59, Colonoscopy, flexible; with control of bleeding, any method 21613, Colonoscopy, flexible; with biopsy, single or multiple CPT copyright 2017 [employer]. All rights reserved. The codes documented in this report are preliminary and upon hims coder review may be revised to meet current compliance requirements. Eric Hameed DO 09/14/2022 1:43:35 PM This report has been signed electronically. Number of Addenda: 0 Note Initiated On: 09/14/2022 1:12 PM
--- NOTE | 2022-09-14 13:44 | OP.CCLET_ITS ---
09/14/2022 Abdirashid Anthony [address] [place] [address] Re : Colonoscopy procedure for Lucía Byerst Dear Dr. Anthony This procedure was performed on Wednesday, September 14, 2022. My impressions and recommendations are as follows: Impressions : - Preparation of the colon was fair. - Stool in the rectum, in the sigmoid colon, in the descending colon, at the splenic flexure, in the transverse colon, in the ascending colon and in the cecum. - Three bleeding colonic angiodysplastic lesions. Treated with a heater probe. - Pseudomembranous enterocolitis. Recommendations : - Return patient to [facility] for ongoing care. - Resume previous diet. - Vancocin (vancomycin) 125 mg PO QID for 2 weeks. - Repeat colonoscopy is recommended for surveillance. The colonoscopy date will be determined after pathology results from today's exam become available for review. - Continue present medications. My findings are described in the full procedure note, which is enclosed. If I can be of further assistance, please feel free to contact me at . Sincerely, Eric Hameed, 09/14/2022 1:43:35 PM This report has been signed electronically.
--- NOTE | 2022-09-14 14:58 | DIALYSIS ---
Dialysis treatment canceled for today per nephrology, will check on again tomorrow AM
--- NOTE | 2022-09-14 14:59 | NURSING ---
PT returned to floor from OR.
[2022-09-14] MEDS: Fluconazole 100 MG Tablet PO (15:09)
[2022-09-14] MEDS: Insulin Lispro 100 UNIT/ML INSULN.PEN SC (15:53)
[2022-09-14] MEDS: Insulin Lispro 100 UNIT/ML INSULN.PEN 30 UNIT SC (15:53)
[2022-09-14] MEDS: Vancomycin 125 MG/5 ML Susp PO.SYRINGE PO (17:47)
[2022-09-14 18:56] LABS: Bedside Glucose 162 mg/dL (74-106)
[2022-09-14] MEDS: Atorvastatin Calcium 20 MG Tablet PO (23:01)
[2022-09-14] MEDS: Collagenase 30gm Tube 1 APPLIC TOPICAL (23:01)
[2022-09-14] MEDS: traZODone 50 MG Tablet PO (23:01)
[2022-09-14 23:51] LABS: Bedside Glucose 54 mg/dL (74-106)
[2022-09-15] LABS: Bedside Glucose 115 mg/dL (74-106)
[2022-09-15] MEDS: Vancomycin 125 MG/5 ML Susp PO.SYRINGE PO ×5 (00:13→23:11)
[2022-09-15 05:02] VITALS: BP 110/58; PULSE 86; RESP 16; TEMP 36.8; O2SAT 97
[2022-09-15 05:03] VITALS: BP 110/58; PULSE 86; RESP 16; TEMP 36.8; O2SAT 97
[2022-09-15] MEDS: 0.9% Saline Lock 10 ML Syringe IV ×2 (05:21→11:34)
[2022-09-15 05:54] LABS: Absolute Neutrophil Count 5.8 X10^3/uL (2.0-7.7); Basophil# 0.08 X10^3/uL; Basophil% 0.9 % (0-1); Eosinophil# 0.18 X10^3/uL; Hematocrit 27.3 % (37-47); Hemoglobin 8.6 g/dL (12.0-15.0); Lymphocyte % 26.4 % (19-41); Mean Corp Hgb Conc 31.5 g/dL (32-36); Mean Corpuscular Hgb 29.6 pg (27.0-32.0); Mean Corpuscular Volume 93.8 fL (81-99); Mean Platelet Vol. 9.4 fl (6.2-12.0); Monocyte# 0.58 X10^3/uL; Monocyte% 6.4 % (0-10); NRBC Flagged by Analyzer 0.2 % (0-5); Neutrophil # 5.78 X10^3/uL (2.7-7.7); Neutrophil % 63.4 % (47-70); POSITIVE MORPHOLOGY YES; Platelet Count 343 K/mm3 (150-450); RBC Distribution Width CV 21.5 % (11.6-14.6); RBC Distribution Width SD 64.6 fl (35.1-43.9); Red Blood Count 2.91 M/mm3 (4.2-5.4); White Blood Count 9.1 K/mm3 (4.4-11.0)
[2022-09-15 05:55] LABS: Differential Indicated SCAN CRITERIA MET
[2022-09-15 06:00] VITALS: BMI 27.3
[2022-09-15 06:09] LABS: Anion Gap 7 (5-15); BUN 36 mg/dL (7-18); BUN/Creat Ratio 13.6 RATIO (10-20); Calcium,Total 8.1 mg/dL (8.5-10.1); Chloride 108 mmol/L (98-107); Creatinine, Serum 2.64 mg/dL (0.55-1.02); EST Glomerular Filtration Rate 20 mL/min (>60); Est Glom Filt Rate - Afr Amer 24 mL/min (>60); Estimated Creatinine Clearance 19.21 ml/min; Glucose 142 mg/dL (74-106); Potassium 3.4 mmol/L (3.5-5.1); Sodium Level 141 mmol/L (136-145)
[2022-09-15 06:39] LABS: Anisocytosis 1+; Differential Comment SCANNED; Hypochromasia 1+
[2022-09-15] MEDS: Potassium Chloride Oral Tablet 20 MEQ 40 MEQ PO (08:30)
[2022-09-15] MEDS: Folic Acid/Vitamin B Comp W-C 1 Capsule 1 CAP PO (09:00)
--- NOTE | 2022-09-15 10:48 | CASEMGMT ---
Pt selected SNFs for referral: [facility], [facility], [facility], and [facility]. Referral sent via fax to [facility] and via [facility] to [facility], and [facility]. Naila Vernon MASONRY SUPERVISOR, BORDERER
[2022-09-15 11:00] VITALS: BP 119/58; PULSE 79; RESP 16; TEMP 36.8; O2SAT 96
[2022-09-15] MEDS: amLODIPine 10 MG Tablet PO ×2 (11:00→11:32)
[2022-09-15] MEDS: Cyanocobalamin 500 MCG Tablet 1000 MCG PO (11:00)
[2022-09-15] MEDS: Empagliflozin 10 MG Tablet PO (11:00)
[2022-09-15] MEDS: Cholecalciferol (VIT D3) 25 MCG TABLET (1,000 UNITS) 50 MCG PO (11:00)
[2022-09-15] MEDS: Fluconazole 100 MG Tablet PO (11:00)
[2022-09-15] MEDS: Topiramate 50 MG Tablet PO (11:00)
[2022-09-15] MEDS: lamoTRIgine 25 MG Tablet PO (11:00)
[2022-09-15] MEDS: Pantoprazole Sodium 40 MG Tablet PO ×2 (11:00→21:45)
[2022-09-15] MEDS: levETIRAcetam 500 MG Tablet PO ×2 (11:00→21:45)
[2022-09-15] MEDS: Venlafaxine XR 150 MG Capsule PO (11:00)
--- NOTE | 2022-09-15 11:14 | CASEMGMT ---
Patient is dialysis at [facility] M,W, and F 630a. SW notified all four facilities where referrals were made. Carolynn CAPPS
[2022-09-15] MEDS: Insulin Lispro 100 UNIT/ML INSULN.PEN 30 UNIT SC (11:38)
[2022-09-15] MEDS: Insulin Lispro 100 UNIT/ML INSULN.PEN SC (11:38)
[2022-09-15 12:15] LABS: Bedside Glucose 205 mg/dL (74-106)
--- NOTE | 2022-09-15 14:39 | PN.RENAL_ITS ---
Subjective Subjective Resting in bed. Patient is on dialysis. Denies any complaints. Objective Data Objective Data Vital Signs: Vital Signs Temp Pulse Resp BP Pulse Ox O2 Del Method O2 Flow Rate 98.2 F 79 16 119/58 L 96 Room Air 2 09/15/22 11:00 09/15/22 11:00 09/15/22 11:00 09/15/22 11:00 09/15/22 11:00 09/15/22 11:00 09/11/22 12:02 Oxygen Flow Rate (L/min) 2 Oxygen Delivery Method Room Air Weight: 70 kg Body Mass Index (BMI) 27.3 Intake & Output: Intake and Output for Last 24 Hours 09/13/22 09/14/22 09/15/22 23:59 23:59 23:59 Intake Total 1260 / 1260 441.25 / 441.25 Output Total 780 / 780 Balance 1260 / 480 -338.75 / -338.75 Lab / Micro Data Result Diagrams: 09/15/22 05:47 09/15/22 05:47 Labs: Laboratory Results - last 24 hr 09/14/22 15:51: POC Glucose 162 H 09/14/22 22:54: POC Glucose 54 L 09/14/22 23:40: POC Glucose 115 H 09/15/22 05:47: WBC 9.1, RBC 2.91 L, Hgb 8.6 L, Hct 27.3 L, MCV 93.8, MCH 29.6, MCHC 31.5 L, RDW Std Deviation 64.6 H, RDW Coeff of Jacqueline 21.5 H, Plt Count 343, MPV 9.4, Immature Gran % (Auto) 0.900, Neut % (Auto) 63.4, Lymph % (Auto) 26.4, [place] % (Auto) 6.4, Eos % (Auto) 2.0, Baso % (Auto) 0.9, Absolute Neuts (auto) 5.8, Absolute Lymphs (auto) 2.40, Nucleated RBC % 0.2, Differential Comment SCANNED, Hypochromasia 1+, Anisocytosis 1+ 09/15/22 05:47: Sodium 141, Potassium 3.4 L, Chloride 108 H, Carbon Dioxide 26.0, Anion Gap 7, BUN 36 H, Creatinine 2.64 H, Estim Creat Clear Calc 19.21, Est GFR (MDRD) Af Amer 24 L, Est GFR (MDRD) Non-Af 20 L, BUN/Creatinine Ratio 13.6, Glucose 142 H, Calcium 8.1 L 09/15/22 11:25: POC Glucose 205 H Micro: Microbiology 09/14/22 13:57 Stool Enteric Bacteriology - Final 09/14/22 13:57 Stool C. difficile GDH Antigen & Toxins - Final Toxigenic C. difficile 09/14/22 13:57 Stool C. difficile DNA Amplification - Final 09/11/22 11:20 Blood Culture (Wb) - Right Hand Blood Culture - Preliminary No growth in 48 hours. 09/11/22 10:15 Blood Culture (Wb) - Right Hand Blood Culture - Preliminary No growth in 48 hours. 09/12/22 13:36 Stool Stool Occult Blood (ISAIAS) - Final Occult Blood Positive Rhythm Strip Rhythm Strip: Sinus Rhythm Rate: 85 Ectopy: PVC(s) Physical Exam Narrative General: Alert and oriented x3 in no apparent distress. Heart: Normal S1, S2. No rubs, murmurs, or gallops. Lungs: Clear to auscultation bilaterally. Abdomen: Normal bowel sounds, soft, nontender, no guarding or rebound. PEG tube intact Extremities: No edema. Tunneled HD catheter dressing clean, dry and intact Assessment & Plan Assessment/Plan (1) MARY (acute kidney injury): (2) Chronic kidney disease, stage 3b: (3) HTN (hypertension): (4) Anemia: PLAN: Plan Impression/Plan: The patient is a 56-year-old woman with past history of type 2 diabetes mellitus, hypertension, hypothyroidism, and seizure disorder.? The patient was recently admitted to the hospital between 08/07/2022 until 08/21/2022 with circulatory shock and MARY from ATN. The patient returns to the hospital on 09/11/2022 with altered mental status possibly due to hypoglycemia. Nephrology is following for MARY on CKD. Acute kidney injury on chronic kidney disease stage IIIb. Prior to last hospital admission, baseline serum creatinine around 1.50 mg/dL based on the most recent laboratory test done through [facility] as outpatient on 07/14/2022.? Serum creatinine was 1.58 mg/dL on 05/15/2022.? Likely CKD from diabetic nephropathy.? Her urine albumin to creatinine ratio from 11/20/2021 was 90.5 mg/g. MARY was due to ischemic ATN from circulatory shock. The patient also had metformin overdose with metformin level on 08/09/2022 of 32 mcg/mL. The patient was started on dialysis, initially on CRRT. She was sent home on IHD on MWF schedule. Pre-HD serum creatinine is rising, today her creatinine is 2.64 mg/dL. We will plan for dialysis today over 3 hours on a 3K bath, likely minimal to no fluid removal as patient appears near euvolemic. It does not look like she has recovered much renal function yet. We will continue to monitor for recovery of renal function. Hypokalemia. Patient will dialyze on 3K bath. She likely does not need renal diet restrictions at this time. Hypertension. BP slightly low, on amlodipine. We will add holding parameters. Patient appears near euvolemic Anemia. Today hemoglobin is 8.6. Patient receives MOSES and iron at kidney center. We will continue monitor hemoglobin trends. Colonoscopy yesterday: Three bleeding colonic angiodysplastic lesions. Treated with a heater probe. Pseudomembranous enterocolitis. Started on vancomycin 125 mg p.o. 4 times daily for 2 weeks, repeat colonoscopy for surveillance recommended. EGD yesterday: Large hiatal hernia, no specimens collected.
--- NOTE | 2022-09-15 16:07 | PN.HOSP_ITS ---
Reason for Visit Reason for Visit: Diagnoses Anemia, unspecified (09/11/22) Hypokalemia (09/11/22) Essential (primary) hypertension (09/11/22) Acute kidney failure, unspecified (09/11/22) Chronic kidney disease, stage 3b (09/11/22) Subjective Subjective Feeling fairly well today, no complaints Objective Data Objective Data Vital Signs: Vital Signs Temp Pulse Resp BP Pulse Ox O2 Del Method O2 Flow Rate 98.2 F 79 16 119/58 L 96 Room Air 2 09/15/22 11:00 09/15/22 11:00 09/15/22 11:00 09/15/22 11:00 09/15/22 11:00 09/15/22 14:00 09/11/22 12:02 Oxygen Flow Rate (L/min) 2 Oxygen Delivery Method Room Air Weight: 70 kg Body Mass Index (BMI) 27.3 Intake & Output: Intake and Output for Last 24 Hours 09/13/22 09/14/22 09/15/22 23:59 23:59 23:59 Intake Total 1260 / 1260 441.25 / 441.25 580 / 580 Output Total 780 / 780 Balance 1260 / 480 -338.75 / -338.75 580 / 580 Lab / Micro Data Result Diagrams: 09/15/22 05:47 09/15/22 05:47 Labs: Laboratory Results - last 24 hr 09/14/22 15:51: POC Glucose 162 H 09/14/22 22:54: POC Glucose 54 L 09/14/22 23:40: POC Glucose 115 H 09/15/22 05:47: WBC 9.1, RBC 2.91 L, Hgb 8.6 L, Hct 27.3 L, MCV 93.8, MCH 29.6, MCHC 31.5 L, RDW Std Deviation 64.6 H, RDW Coeff of Jacqueline 21.5 H, Plt Count 343, M PV 9.4, Immature Gran % (Auto) 0.900, Neut % (Auto) 63.4, Lymph % (Auto) 26.4, [place] % (Auto) 6.4, Eos % (Auto) 2.0, Baso % (Auto) 0.9, Absolute Neuts (auto) 5.8, Absolute Lymphs (auto) 2.40, Nucleated RBC % 0.2, Differential Comment SCANNED, Hypochromasia 1+, Anisocytosis 1+ 09/15/22 05:47: Sodium 141, Potassium 3.4 L, Chloride 108 H, Carbon Dioxide 26.0, Anion Gap 7, BUN 36 H, Creatinine 2.64 H, Estim Creat Clear Calc 19.21, Est GFR (MDRD) Af Amer 24 L, Est GFR (MDRD) Non-Af 20 L, BUN/Creatinine Ratio 13.6, Glucose 142 H, Calcium 8.1 L 09/15/22 11:25: POC Glucose 205 H Micro: Microbiology 09/14/22 13:57 Stool Enteric Bacteriology - Final 09/14/22 13:57 Stool C. difficile GDH Antigen & Toxins - Final Toxigenic C. difficile 09/14/22 13:57 Stool C. difficile DNA Amplification - Final 09/11/22 11:20 Blood Culture (Wb) - Right Hand Blood Culture - Preliminary No growth in 48 hours. 09/11/22 10:15 Blood Culture (Wb) - Right Hand Blood Culture - Preliminary No growth in 48 hours. 09/12/22 13:36 Stool Stool Occult Blood (ISAIAS) - Final Occult Blood Positive Rhythm Strip Rhythm Strip: Sinus Rhythm Rate: 85 Ectopy: PVC(s) Physical Exam Narrative General: Alert, oriented, no apparent distress HEENT: Atraumatic, normocephalic Eyes: Anicteric, normal conjunctiva, extraocular movements grossly intact Neck: Supple Respiratory: Clear to auscultation bilaterally, normal respiratory effort Cardiovascular: Regular rate and rhythm GI: Soft, nontender, nondistended Extremities: No edema Musculoskeletal: Moving all extremities Neuro: No overt focal neurological deficits Skin: No rashes appreciated Psych: Cooperative Assessment & Plan Assessment/Plan (1) Anemia: (2) HTN (hypertension): (3) Chronic kidney disease, stage 3b: (4) MARY (acute kidney injury): PLAN: Plan #Pseudomembranous colitis secondary to C. difficile -Seen on colonoscopy, started on vancomycin #Delia esophagitis -Fluconazole for 1 week #Acute on chronic anemia -Hb was 6.7. 8.5 on 09/12 with 2 units of PRBCs. No overt blood appreciated but pt very difficult stick and yet to get a.m. labs -Iron panel showed iron level of 192 with TIBC of 164 and iron saturation of 117.1 and elevated ferritin level.? This is therefore not iron deficiency anemia and more represents anemia of chronic disease. -Had acute on chronic anemia during previous admissions 2 and was evaluated by GI. -Stool for occult blood ordered and was positive, GI evaluated and patient for upper endoscopy tomorrow plus or minus colonoscopy if she is agreeable -Cont PPI BID -09/14: No overt abnormalities on EGD, colonoscopy demonstrated 3 bleeding colonic angiodysplastic lesions which were treated with a heater probe and also pseudomembranous enterocolitis. -09/15: Hemoglobin stable #Acute metabolic encephalopathy due to hypoglycemia -resolved. To be evaluated by speech for possible PEG removal tomorrow during EGD -insulin lispro BID continued, long acting held, sliding scale also instiutide as well as jardiance -cont to adjust regimen #MARY on CKD stage IIIb on HD M/W/F -Nephrology following #Type 2 diabetes mellitus insulin lispro BID continued, long acting held, sliding scale also instiutide as well as jardiance -cont to adjust regimen #Hypertension; -Holding lidocaine due to borderline pressures today #Seizure disorder: -on keppra and topiramate as well as lamotrigine #Depression: -on venlafaxine #Hyperlipidemia: -On statin DVT prophylaxis: SCDs Charges/Coding Visit Charges Inpatient E&M: 62421 Subs Hosp L2
--- NOTE | 2022-09-15 16:21 | CASEMGMT ---
[facility] declined patient as they cannot transport to dialysis. Noel Nayak said they could take her if she switched her dialysis to [facility] in [place]. [facility] was reviewing to see if they could transport patient to dialysis. [facility] ([facility]) has not called SW back yet. did call [facility] and leave a message for Elsa in admissions. Carolynn Pino BRIM BUSTER JEFRY
--- NOTE | 2022-09-15 16:37 | DIALYSIS ---
Hemodialysis x 3.0 hour, net UF 0 (even). VSS, no complaints. Blood returned to patient at end of treatment. Ctheter ports closed with heparin. Dialysis catheter dressing changed.
[2022-09-15 17:00] VITALS: BP 116/53; PULSE 84; RESP 16; TEMP 36.8; O2SAT 95
--- NOTE | 2022-09-15 17:06 | PN_ITS ---
Subjective Subjective Patient is tolerating tube feedings and she is eating some by mouth. She underwent EGD and colonoscopy yesterday. Objective Data Objective Data Vital Signs: Vital Signs Temp Pulse Resp BP Pulse Ox O2 Del Method O2 Flow Rate 98.2 F 79 16 119/58 L 96 Room Air 2 09/15/22 11:00 09/15/22 11:00 09/15/22 11:00 09/15/22 11:00 09/15/22 11:00 09/15/22 14:00 09/11/22 12:02 Oxygen Flow Rate (L/min) 2 Oxygen Delivery Method Room Air Weight: 154 lb 5.177 oz Body Mass Index (BMI) 27.3 Intake & Output: Intake and Output for Last 24 Hours 09/13/22 09/14/22 09/15/22 23:59 23:59 23:59 Intake Total 1260 / 1260 441.25 / 441.25 580 / 580 Output Total 780 / 780 Balance 1260 / 480 -338.75 / -338.75 580 / 580 Lab / Micro Data Result Diagrams: 09/15/22 05:47 09/15/22 05:47 Labs: Laboratory Results - last 24 hr 09/14/22 15:51: POC Glucose 162 H 09/14/22 22:54: POC Glucose 54 L 09/14/22 23:40: POC Glucose 115 H 09/15/22 05:47: WBC 9.1, RBC 2.91 L, Hgb 8.6 L, Hct 27.3 L, MCV 93.8, MCH 29.6, MCHC 31.5 L, RDW Std Deviation 64.6 H, RDW Coeff of Jacqueline 21.5 H, Plt Count 343, MPV 9.4, Immature Gran % (Auto) 0.900, Neut % (Auto) 63.4, Lymph % (Auto) 26.4, [place] % (Auto) 6.4, Eos % (Auto) 2.0, Baso % (Auto) 0.9, Absolute Neuts (auto) 5.8, Absolute Lymphs (auto) 2.40, Nucleated RBC % 0.2, Differential Comment SCANNED, Hypochromasia 1+, Anisocytosis 1+ 09/15/22 05:47: Sodium 141, Potassium 3.4 L, Chloride 108 H, Carbon Dioxide 26.0, Anion Gap 7, BUN 36 H, Creatinine 2.64 H, Estim Creat Clear Calc 19.21, Est GFR (MDRD) Af Amer 24 L, Est GFR (MDRD) Non-Af 20 L, BUN/Creatinine Ratio 13.6, Glucose 142 H, Calcium 8.1 L 09/15/22 11:25: POC Glucose 205 H Micro: Microbiology 09/14/22 13:57 Stool Enteric Bacteriology - Final 09/14/22 13:57 Stool C. difficile GDH Antigen & Toxins - Final Toxigenic C. difficile 09/14/22 13:57 Stool C. difficile DNA Amplification - Final 09/11/22 11:20 Blood Culture (Wb) - Right Hand Blood Culture - Preliminary No growth in 48 hours. 09/11/22 10:15 Blood Culture (Wb) - Right Hand Blood Culture - Preliminary No growth in 48 hours. 09/12/22 13:36 Stool Stool Occult Blood (ISAIAS) - Final Occult Blood Positive Rhythm Strip Rhythm Strip: Sinus Rhythm Rate: 85 Ectopy: PVC(s) Physical Exam Narrative General: Alert, oriented, no apparent distress HEENT: Atraumatic, normocephalic Eyes: Anicteric, normal conjunctiva, extraocular movements grossly intact Neck: Supple Respiratory: Clear to auscultation bilaterally, normal respiratory effort Cardiovascular: Regular rate and rhythm GI: Soft, nontender, nondistended Extremities: No edema Musculoskeletal: Moving all extremities Neuro: No overt focal neurological deficits Skin: No rashes appreciated Psych: Cooperative Assessment & Plan Assessment/Plan (1) Anemia: PLAN: Acute blood loss anemia secondary to angiodysplasias in the setting of chronic anemia from chronic kidney disease (2) Thrombocytopenia: PLAN: Thought to be secondary to dilution and acute illness.. (3) Dysphagia: PLAN: Status post PEG tube placement. Hopefully if she gets her strength back we will be able to remove the PEG in the future. She is making very good progress. She does have severe anasarca secondary to protein, nutrition, acute illness and other factors. Continue tube feedings. She was also discovered to have esophageal candidiasis. She was placed on fluconazole therapy. Continue that for approximately 7 days. (4) Metabolic acidosis: (5) C. difficile colitis: PLAN: She was discovered to have severe C. difficile colitis. She is on vancomycin 125 mg p.o. 4 times daily. She will need to continue that for approximately 14 days. Charges/Coding Visit Charges Inpatient E&M: 84510 Subs Hosp L3
[2022-09-15] MEDS: Heparin 10,000 UNITS/10 ML Vial IV (18:08)
[2022-09-15 18:50] LABS: Bedside Glucose 60 mg/dL (74-106)
[2022-09-15 18:50] LABS: Bedside Glucose 59 mg/dL (74-106)
[2022-09-15 18:50] LABS: Bedside Glucose 76 mg/dL (74-106)
[2022-09-15 21:42] VITALS: BP 110/55; PULSE 83; RESP 16; TEMP 36.7; O2SAT 93
[2022-09-15] MEDS: Collagenase 30gm Tube 1 APPLIC TOPICAL (21:45)
[2022-09-15] MEDS: traZODone 50 MG Tablet PO (21:45)
[2022-09-15] MEDS: Atorvastatin Calcium 20 MG Tablet PO (21:45)
[2022-09-15 22:11] LABS: Bedside Glucose 149 mg/dL (74-106)
[2022-09-16] VITALS (8 sets, daily range): BP systolic 107–127; BP diastolic 60–107; PULSE 77–89; RESP 15–18; TEMP 36.7–36.8; O2SAT 93–98; BMI 27.3
[2022-09-16] MEDS: Vancomycin 125 MG/5 ML Susp PO.SYRINGE PO ×3 (05:01→18:20)
[2022-09-16] MEDS: Insulin Lispro 100 UNIT/ML INSULN.PEN SC ×3 (08:13→21:30)
[2022-09-16] MEDS: Folic Acid/Vitamin B Comp W-C 1 Capsule 1 CAP PO (09:03)
[2022-09-16] MEDS: lamoTRIgine 25 MG Tablet PO (09:03)
[2022-09-16] MEDS: Empagliflozin 10 MG Tablet PO (09:04)
[2022-09-16] MEDS: Pantoprazole Sodium 40 MG Tablet PO ×2 (09:04→21:30)
[2022-09-16] MEDS: Venlafaxine XR 150 MG Capsule PO (09:04)
[2022-09-16] MEDS: Cholecalciferol (VIT D3) 25 MCG TABLET (1,000 UNITS) 50 MCG PO (09:04)
[2022-09-16] MEDS: levETIRAcetam 500 MG Tablet PO ×2 (09:04→21:30)
[2022-09-16] MEDS: Fluconazole 100 MG Tablet PO (09:05)
[2022-09-16] MEDS: Cyanocobalamin 500 MCG Tablet 1000 MCG PO (09:05)
[2022-09-16 09:30] LABS: Bedside Glucose 179 mg/dL (74-106)
[2022-09-16] MEDS: Topiramate 50 MG Tablet PO (09:30)
--- NOTE | 2022-09-16 10:02 | PCM.PN.HOSP ---
Reason for Visit Reason for Visit: Diagnoses Enterocolitis due to Clostridium difficile, not specified as recurrent (09/11/22) Anemia, unspecified (09/11/22) Thrombocytopenia, unspecified (09/11/22) Acidosis, unspecified (09/11/22) Hypokalemia (09/11/22) Essential (primary) hypertension (09/11/22) Acute kidney failure, unspecified (09/11/22) Chronic kidney disease, stage 3b (09/11/22) Dysphagia, unspecified (09/11/22) Subjective Subjective Feeling fairly well, no complaints today Objective Data Objective Data Vital Signs: Vital Signs Temp Pulse Resp BP Pulse Ox O2 Del Method O2 Flow Rate 98.2 F 89 15 107/60 95 Room Air 2 09/16/22 09:17 09/16/22 09:17 09/16/22 09:17 09/16/22 09:17 09/16/22 09:17 09/16/22 09:17 09/11/22 12:02 Oxygen Flow Rate (L/min) 2 Oxygen Delivery Method Room Air Weight: 69.9 kg Body Mass Index (BMI) 27.3 Intake & Output: Intake and Output for Last 24 Hours 09/14/22 09/15/22 09/16/22 23:59 23:59 23:59 Intake Total 441.25 / 441.25 870 / 870 Output Total 780 / 780 Balance -338.75 / -338.75 870 / 870 Lab / Micro Data Result Diagrams: 09/15/22 05:47 09/15/22 05:47 Labs: Laboratory Results - last 24 hr 09/15/22 11:25: POC Glucose 205 H 09/15/22 17:47: POC Glucose 60 L 09/15/22 18:06: POC Glucose 59 L 09/15/22 18:32: POC Glucose 76 09/15/22 21:44: POC Glucose 149 H 09/16/22 08:11: POC Glucose 179 H Micro: Microbiology 09/14/22 13:57 Stool Enteric Bacteriology - Final 09/14/22 13:57 Stool C. difficile GDH Antigen & Toxins - Final Toxigenic C. difficile 09/14/22 13:57 Stool C. difficile DNA Amplification - Final 09/11/22 11:20 Blood Culture (Wb) - Right Hand Blood Culture - Preliminary No growth in 48 hours. 09/11/22 10:15 Blood Culture (Wb) - Right Hand Blood Culture - Preliminary No growth in 48 hours. 09/12/22 13:36 Stool Stool Occult Blood (ISAIAS) - Final Occult Blood Positive Rhythm Strip Rhythm Strip: Sinus Rhythm Rate: 85 Ectopy: PVC(s) Physical Exam Narrative General: Alert, oriented, no apparent distress HEENT: Atraumatic, normocephalic Eyes: extraocular movements grossly intact Neck: Supple Respiratory: normal respiratory effort Cardiovascular: no edema appreciated GI: nondistended Extremities: Moving all extremities Neuro: No overt focal neurological deficits Psych: Cooperative Assessment & Plan Assessment/Plan (1) Anemia: (2) HTN (hypertension): (3) Chronic kidney disease, stage 3b: (4) MARY (acute kidney injury): PLAN: Plan #Pseudomembranous colitis secondary to C. difficile -Seen on colonoscopy, started on vancomycin #Delia esophagitis -Fluconazole for 1 week #Acute on chronic anemia -Hb was 6.7. 8.5 on 09/12 with 2 units of PRBCs. No overt blood appreciated but pt very difficult stick and yet to get a.m. labs -Iron panel showed iron level of 192 with TIBC of 164 and iron saturation of 117.1 and elevated ferritin level.? This is therefore not iron deficiency anemia and more represents anemia of chronic disease. -Had acute on chronic anemia during previous admissions 2 and was evaluated by GI. -Stool for occult blood ordered and was positive, GI evaluated and patient for upper endoscopy tomorrow plus or minus colonoscopy if she is agreeable -Cont PPI BID -09/14: No overt abnormalities on EGD, colonoscopy demonstrated 3 bleeding colonic angiodysplastic lesions which were treated with a heater probe and also pseudomembranous enterocolitis. -09/15: Hemoglobin stable #Acute metabolic encephalopathy due to hypoglycemia -resolved. To be evaluated by speech for possible PEG removal tomorrow during EGD -insulin lispro BID continued, long acting held, sliding scale also instiutide as well as jardiance -cont to adjust regimen #MARY on CKD stage IIIb on HD M/W/F -Nephrology following #Type 2 diabetes mellitus insulin lispro BID continued, long acting held, sliding scale also jardiance -cont to adjust regimen #Hypertension; -Holding bp medication due to borderline pressures today #Seizure disorder: -on keppra and topiramate as well as lamotrigine #Depression: -on venlafaxine #Hyperlipidemia: -On statin DVT prophylaxis: SCDs Charges/Coding Visit Charges Inpatient E&M: 97236 Subs Hosp L2
--- NOTE | 2022-09-16 10:11 | PCM.PN.REN ---
Subjective Subjective Following for dialysis requiring MARY Patient is sitting in chair. Denies any complaints. Reports appetite has improved. Denies any nausea or vomiting. Objective Data Objective Data Vital Signs: Vital Signs Temp Pulse Resp BP Pulse Ox O2 Del Method O2 Flow Rate 98.2 F 89 15 107/60 95 Room Air 2 09/16/22 09:17 09/16/22 09:17 09/16/22 09:17 09/16/22 09:17 09/16/22 09:17 09/16/22 09:17 09/11/22 12:02 Oxygen Flow Rate (L/min) 2 Oxygen Delivery Method Room Air Weight: 69.9 kg Body Mass Index (BMI) 27.3 Intake & Output: Intake and Output for Last 24 Hours 09/14/22 09/15/22 09/16/22 23:59 23:59 23:59 Intake Total 441.25 / 441.25 870 / 870 Output Total 780 / 780 Balance -338.75 / -338.75 870 / 870 Lab / Micro Data Result Diagrams: 09/15/22 05:47 09/15/22 05:47 Labs: Laboratory Results - last 24 hr 09/15/22 11:25: POC Glucose 205 H 09/15/22 17:47: POC Glucose 60 L 09/15/22 18:06: POC Glucose 59 L 09/15/22 18:32: POC Glucose 76 09/15/22 21:44: POC Glucose 149 H 09/16/22 08:11: POC Glucose 179 H Micro: Microbiology 09/14/22 13:57 Stool Enteric Bacteriology - Final 09/14/22 13:57 Stool C. difficile GDH Antigen & Toxins - Final Toxigenic C. difficile 09/14/22 13:57 Stool C. difficile DNA Amplification - Final 09/11/22 11:20 Blood Culture (Wb) - Right Hand Blood Culture - Preliminary No growth in 48 hours. 09/11/22 10:15 Blood Culture (Wb) - Right Hand Blood Culture - Preliminary No growth in 48 hours. 09/12/22 13:36 Stool Stool Occult Blood (ISAIAS) - Final Occult Blood Positive Rhythm Strip Rhythm Strip: Sinus Rhythm Rate: 85 Ectopy: PVC(s) Physical Exam Narrative General: Alert and oriented x3 in no apparent distress. Heart: Normal S1, S2. No rubs, murmurs, or gallops. Lungs: Clear to auscultation bilaterally. Abdomen: Normal bowel sounds, soft, nontender, no guarding or rebound. PEG tube intact Extremities: No edema. Tunneled HD catheter dressing clean, dry and intact Assessment & Plan Assessment/Plan (1) MARY (acute kidney injury): (2) Chronic kidney disease, stage 3b: (3) HTN (hypertension): (4) Anemia: PLAN: Plan Impression/Plan: The patient is a 56-year-old woman with past history of type 2 diabetes mellitus, hypertension, hypothyroidism, and seizure disorder.? The patient was recently admitted to the hospital between 08/07/2022 until 08/21/2022 with circulatory shock and MARY from ATN. The patient returns to the hospital on 09/11/2022 with altered mental status possibly due to hypoglycemia. Nephrology is following for MARY on CKD. Acute kidney injury on chronic kidney disease stage IIIb. Prior to last hospital admission, baseline serum creatinine around 1.50 mg/dL based on the most recent laboratory test done through [facility] as outpatient on 07/14/2022.? Serum creatinine was 1.58 mg/dL on 05/15/2022.? Likely CKD from diabetic nephropathy.? Her urine albumin to creatinine ratio from 11/20/2021 was 90.5 mg/g. MARY was due to ischemic ATN from circulatory shock. The patient also had metformin overdose with metformin level on 08/09/2022 of 32 mcg/mL. The patient was started on dialysis, initially on CRRT. She was sent home on IHD on MWF schedule. 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 She tolerated dialysis yesterday over 3 hours with no fluid removal. Plan for dialysis again today over 3 hours, 3K bath with no fluid removal. We will continue to monitor for recovery of renal function. Patient has history of urinary retention, discussed with patient importance of frequent bathroom trips; also discussed with patient if she notes bladder distention/or pain to inform nursing. Hypokalemia. Patient will dialyze on 3K bath. She likely does not need renal diet restrictions at this time. Appetite is improving and patient is taking food by mouth, quite possibly PEG tube can be removed in near future Hypertension. BP was low but improved. Off amlodipine. Patient appears near euvolemic Anemia. Hemoglobin is 8.6, hgb on admission 6.7 and received PRBC. Patient receives MOSES and iron at kidney center. We will continue monitor hemoglobin trends. Colonoscopy: Three bleeding colonic angiodysplastic lesions. Treated with a heater probe. Pseudomembranous enterocolitis. Started on vancomycin 125 mg p.o. 4 times daily for 2 weeks and diflucan daily, repeat colonoscopy for surveillance recommended. EGD: Large hiatal hernia, no specimens collected. Disposition; discharge plans in progress to [facility].
--- NOTE | 2022-09-16 11:32 | CASEMGMT ---
JANEL received a voice mail from patient's Deep requesting a return call. JANEL called Deep back. JANEL explained that patient chose the first 4 facilities on the list. JANEL explained that [facility] cannot take patient, [facility] could take patient, but patient would have to switch dialysis companies, [facility] was trying to see if they could transport patient to dialysis, and [facility] has not spoken with JANEL yet. JANEL will be following up with those two facilities. Deep thanked JANEL for calling him back. Carolynn Pino DITCH REPAIRER JEFRY
--- NOTE | 2022-09-16 11:39 | CASEMGMT ---
SW returned call to Stephanie [facility], , who reports pt's had called hospice when patient was admitted and that they are available if needed. Returned call to [employer] and insurance manager and left voicemail. Naila Vernon DIRECTOR OF HEALTHCARE SYSTEMS, COMPUTER NETWORK SPECIALIST
--- NOTE | 2022-09-16 11:47 | CASEMGMT ---
JANEL called [facility] and spoke with Elsa in admissions. Elsa said they are looking at patient's referral right now and she will get back to . JANEL called [facility] and spoke with Vikki. Vikki said she has a call out to patient's insurance to see if they are able to arrange transport through insurance. She is going to call once she finds out. Carolynn Pino GUITAR MAKER HAND JEFRY
--- NOTE | 2022-09-16 11:50 | CASEMGMT ---
SW received a phone call from Elsa with [facility] and they are declining patient. Carolynn Pino ELECTRIC SCREW DRIVER OPERATOR JEFRY
[2022-09-16 12:25] LABS: Bedside Glucose 255 mg/dL (74-106)
[2022-09-16 15:22] LABS: Absolute Lymphocyte Count 1.98 X10^3/uL (0.83-4.51); Absolute Neutrophil Count 6.1 X10^3/uL (2.0-7.7); Basophil# 0.05 X10^3/uL; Basophil% 0.6 % (0-1); Eosinophil# 0.13 X10^3/uL; Eosinophils% 1.4 % (0-5); Hematocrit 26.2 % (37-47); Hemoglobin 8.3 g/dL (12.0-15.0); Lymphocyte # 1.98 X10^3/ul (0.83-4.51); Mean Corp Hgb Conc 31.7 g/dL (32-36); Mean Corpuscular Hgb 29.9 pg (27.0-32.0); Mean Corpuscular Volume 94.2 fL (81-99); Mean Platelet Vol. 9.3 fl (6.2-12.0); Monocyte# 0.65 X10^3/uL; Monocyte% 7.2 % (0-10); NRBC Flagged by Analyzer 0 % (0-5); Neutrophil # 6.12 X10^3/uL (2.7-7.7); Neutrophil % 68.1 % (47-70); POSITIVE MORPHOLOGY YES; Platelet Count 331 K/mm3 (150-450); RBC Distribution Width CV 21.5 % (11.6-14.6); RBC Distribution Width SD 70.6 fl (35.1-43.9); Red Blood Count 2.78 M/mm3 (4.2-5.4)
[2022-09-16 15:28] LABS: Differential Indicated SCAN CRITERIA MET
--- NOTE | 2022-09-16 15:33 | CASEMGMT ---
JANEL received a call from Vikki with [facility] and they can take patient as her insurance will take care of transportation. JANEL told Vikki ISLAS will talk with patient and make sure she is okay with [facility]. JANEL spoke with patient letting her know [facility] can take her. Patient is in agreement with going to [facility]. JANEL notified Vikki at [facility] that patient would like to come to their facility. Vikki will start the pre-cert. Plan: d/c to [facility] pending pre-cert. Carolynn Pino JOINERS SUPERVISOR JEFRY
--- NOTE | 2022-09-16 15:38 | CASEMGMT ---
SW called patient's , Deep, and notified him that patient was accepted to [place] pending insurance. Naila Vernon PROFESSIONAL BONDSMAN, LABOR AND DELIVERY NURSE
--- NOTE | 2022-09-16 15:42 | CASEMGMT ---
JANEL called [facility] and let them know patient will be going to [facility] [place]. [facility] and patient will be discharged. Plan: [facility] pending pre-cert. Carolynn CAPPS
[2022-09-16 15:51] LABS: Anion Gap 5 (5-15); BUN 16 mg/dL (7-18); BUN/Creat Ratio 8.4 RATIO (10-20); Calcium,Total 7.9 mg/dL (8.5-10.1); Chloride 107 mmol/L (98-107); Creatinine, Serum 1.91 mg/dL (0.55-1.02); EST Glomerular Filtration Rate 29 mL/min (>60); Est Glom Filt Rate - Afr Amer 35 mL/min (>60); Estimated Creatinine Clearance 26.56 ml/min; Glucose 198 mg/dL (74-106); Potassium 3.8 mmol/L (3.5-5.1); Sodium Level 140 mmol/L (136-145)
--- NOTE | 2022-09-16 16:05 | CASEMGMT ---
JANEL received a return call from patient's manager of case management Barbara. JANEL updated Barbara on patient's discharge plan. Carolynn CAPPS
[2022-09-16 16:19] LABS: Anisocytosis 1+; Hypochromasia 1+; Macrocytosis 1+; Platelet Estimate ADEQUATE (ADEQ); Polychromasia RARE; Red Cell Morphology N CHROM NORMAL (NORM C&C)
[2022-09-16 17:00] LABS: Bedside Glucose 156 mg/dL (74-106)
[2022-09-16] MEDS: Heparin 10,000 UNITS/10 ML Vial 3200 UNITS IV (18:21)
--- NOTE | 2022-09-16 18:58 | DIALYSIS ---
Hemodialysis complete. 3 hour run, 3k bath. Net fluid balance = 0 ml. Patient tolerated HD tx well. Right chest CVC: site benign, biofilm dressing dry and intact. Lumen flushed with NS, filled to volume with Heparin, clamped and capped. Report given to primary RN, Shameka Nielson
--- NOTE | 2022-09-16 21:10 | PCM.PROGNOTE ---
Subjective Subjective Patient does not have any complaints at this time. Objective Data Objective Data Vital Signs: Vital Signs Temp Pulse Resp BP Pulse Ox O2 Del Method O2 Flow Rate 98.1 F 81 16 127/66 H 98 Room Air 2 09/16/22 18:30 09/16/22 18:30 09/16/22 18:30 09/16/22 18:30 09/16/22 18:30 09/16/22 20:26 09/11/22 12:02 Oxygen Flow Rate (L/min) 2 Oxygen Delivery Method Room Air Weight: 154 lb 1.65 oz Body Mass Index (BMI) 27.3 Intake & Output: Intake and Output for Last 24 Hours 09/14/22 09/15/22 09/16/22 23:59 23:59 23:59 Intake Total 441.25 / 441.25 870 / 870 770 / 770 Output Total 780 / 780 0 / 0 Balance -338.75 / -338.75 870 / 870 770 / 770 Lab / Micro Data Result Diagrams: 09/16/22 15:05 09/16/22 15:05 Labs: Laboratory Results - last 24 hr 09/15/22 21:44: POC Glucose 149 H 09/16/22 08:11: POC Glucose 179 H 09/16/22 12:01: POC Glucose 255 H 09/16/22 15:05: WBC 9.0, RBC 2.78 L, Hgb 8.3 L, Hct 26.2 L, MCV 94.2, MCH 29.9, MCHC 31.7 L, RDW Std Deviation 70.6 H, RDW Coeff of Jacqueline 21.5 H, Plt Count 331, MPV 9.3, Immature Gran % (Auto) 0.700, Neut % (Auto) 68.1, Lymph % (Auto) 22.0, [place] % (Auto) 7.2, Eos % (Auto) 1.4, Baso % (Auto) 0.6, Absolute Neuts (auto) 6.1, Absolute Lymphs (auto) 1.98, Nucleated RBC % 0, Platelet Estimate ADEQUATE, RBC Morphology N CHROM, Polychromasia RARE, Hypochromasia 1+, Anisocytosis 1+, Macrocytosis 1+ 09/16/22 15:05: Sodium 140, Potassium 3.8, Chloride 107, Carbon Dioxide 28.0, Anion Gap 5, BUN 16, Creatinine 1.91 H, Estim Creat Clear Calc 26.56, Est GFR (MDRD) Af Amer 35 L, Est GFR (MDRD) Non-Af 29 L, BUN/Creatinine Ratio 8.4 L, Glucose 198 H, Calcium 7.9 L 09/16/22 16:34: POC Glucose 156 H Micro: Microbiology 09/11/22 10:15 Blood Culture (Wb) - Right Hand Blood Culture - Final No growth in 5 days. 09/11/22 11:20 Blood Culture (Wb) - Right Hand Blood Culture - Final No growth in 5 days. 09/14/22 13:57 Stool Enteric Bacteriology - Final 09/14/22 13:57 Stool C. difficile GDH Antigen & Toxins - Final Toxigenic C. difficile 09/14/22 13:57 Stool C. difficile DNA Amplification - Final 09/12/22 13:36 Stool Stool Occult Blood (ISAIAS) - Final Occult Blood Positive Rhythm Strip Rhythm Strip: Sinus Rhythm Rate: 85 Ectopy: PVC(s) Physical Exam Narrative General: Alert and oriented x3 in no apparent distress. Heart: Normal S1, S2. No rubs, murmurs, or gallops. Lungs: Clear to auscultation bilaterally. Abdomen: Normal bowel sounds, soft, nontender, no guarding or rebound. PEG tube intact Extremities: No edema. Tunneled HD catheter dressing clean, dry and intact Assessment & Plan Assessment/Plan (1) Anemia: PLAN: Acute blood loss anemia secondary to angiodysplasias in the setting of chronic anemia from chronic kidney disease (2) Thrombocytopenia: PLAN: Thought to be secondary to dilution and acute illness.. (3) Dysphagia: PLAN: Status post PEG tube placement. Hopefully if she gets her strength back we will be able to remove the PEG in the future. She is making very good progress. She does have severe anasarca secondary to protein, nutrition, acute illness and other factors. Continue tube feedings. She was also discovered to have esophageal candidiasis. She was placed on fluconazole therapy. Continue that for approximately 7 days. (4) Metabolic acidosis: (5) C. difficile colitis: PLAN: She was discovered to have severe C. difficile colitis. She is on vancomycin 125 mg p.o. 4 times daily. She will need to continue that for approximately 14 days. Charges/Coding Visit Charges Inpatient E&M: 45816 Subs Hosp L3
[2022-09-16] MEDS: traZODone 50 MG Tablet PO (21:30)
[2022-09-16] MEDS: Collagenase 30gm Tube 1 APPLIC TOPICAL (21:30)
[2022-09-16] MEDS: Atorvastatin Calcium 20 MG Tablet PO (21:30)
[2022-09-16 22:30] LABS: Bedside Glucose 205 mg/dL (74-106)
[2022-09-17] MEDS: Vancomycin 125 MG/5 ML Susp PO.SYRINGE PO ×4 (00:36→17:37)
[2022-09-17 03:31] VITALS: BP 130/71; PULSE 82; RESP 16; TEMP 36.9; O2SAT 93
[2022-09-17 05:20] VITALS: BMI 27.4
[2022-09-17 06:19] LABS: Absolute Lymphocyte Count 1.93 X10^3/uL (0.83-4.51); Absolute Neutrophil Count 3.6 X10^3/uL (2.0-7.7); Basophil# 0.05 X10^3/uL; Basophil% 0.8 % (0-1); Eosinophils% 1.6 % (0-5); Hematocrit 26.1 % (37-47); Hemoglobin 8.1 g/dL (12.0-15.0); Lymphocyte # 1.93 X10^3/ul (0.83-4.51); Lymphocyte % 31.3 % (19-41); Mean Corpuscular Hgb 29.2 pg (27.0-32.0); Mean Corpuscular Volume 94.2 fL (81-99); Mean Platelet Vol. 9.1 fl (6.2-12.0); Monocyte# 0.45 X10^3/uL; Monocyte% 7.3 % (0-10); NRBC Flagged by Analyzer 0 % (0-5); Neutrophil % 58.4 % (47-70); POSITIVE MORPHOLOGY YES; Platelet Count 255 K/mm3 (150-450); RBC Distribution Width CV 21.3 % (11.6-14.6); RBC Distribution Width SD 71.8 fl (35.1-43.9); Red Blood Count 2.77 M/mm3 (4.2-5.4); White Blood Count 6.2 K/mm3 (4.4-11.0)
[2022-09-17 06:28] LABS: Differential Indicated SCAN CRITERIA MET
[2022-09-17 06:38] LABS: Anisocytosis 1+; Differential Comment SCANNED; Macrocytosis 1+
[2022-09-17 06:57] LABS: Anion Gap 4 (5-15); BUN 9 mg/dL (7-18); BUN/Creat Ratio 6.4 RATIO (10-20); Calcium,Total 7.9 mg/dL (8.5-10.1); Chloride 109 mmol/L (98-107); Creatinine, Serum 1.41 mg/dL (0.55-1.02); EST Glomerular Filtration Rate 41 mL/min (>60); Est Glom Filt Rate - Afr Amer 49 mL/min (>60); Estimated Creatinine Clearance 35.98 ml/min; Glucose 185 mg/dL (74-106); Potassium 3.8 mmol/L (3.5-5.1); Sodium Level 142 mmol/L (136-145)
--- NOTE | 2022-09-17 07:00 | PN_ITS ---
Subjective Subjective Patient is doing well without any complaints. Objective Data Objective Data Vital Signs: Vital Signs Temp Pulse Resp BP Pulse Ox O2 Del Method O2 Flow Rate 98.5 F 79 16 135/70 H 97 Room Air 2 09/17/22 15:14 09/17/22 15:14 09/17/22 15:14 09/17/22 15:14 09/17/22 15:14 09/17/22 16:37 09/11/22 12:02 Oxygen Flow Rate (L/min) 2 Oxygen Delivery Method Room Air Weight: 155 lb 1.6 oz Body Mass Index (BMI) 27.4 Intake & Output: Intake and Output for Last 24 Hours 09/15/22 09/16/22 09/17/22 23:59 23:59 23:59 Intake Total 870 / 870 770 / 770 Output Total 0 / 0 Balance 870 / 870 770 / 770 Lab / Micro Data Result Diagrams: 09/17/22 06:00 09/17/22 06:00 Labs: Laboratory Results - last 24 hr 09/16/22 21:27: POC Glucose 205 H 09/17/22 06:00: WBC 6.2, RBC 2.77 L, Hgb 8.1 L, Hct 26.1 L, MCV 94.2, MCH 29.2, MCHC 31.0 L, RDW Std Deviation 71.8 H, RDW Coeff of Jacqueline 21.3 H, Plt Count 255, MPV 9.1, Immature Gran % (Auto) 0.600, Neut % (Auto) 58.4, Lymph % (Auto) 31.3, [place] % (Auto) 7.3, Eos % (Auto) 1.6, Baso % (Auto) 0.8, Absolute Neuts (auto) 3.6, Absolute Lymphs (auto) 1.93, Nucleated RBC % 0, Differential Comment SCANNED, Anisocytosis 1+, Macrocytosis 1+ 09/17/22 06:00: Sodium 142, Potassium 3.8, Chloride 109 H, Carbon Dioxide 29.0, Anion Gap 4 L, BUN 9, Creatinine 1.41 H, Estim Creat Clear Calc 35.98, Est GFR (MDRD) Af Amer 49 L, Est GFR (MDRD) Non-Af 41 L, BUN/Creatinine Ratio 6.4 L, Glucose 185 H, Calcium 7.9 L 09/17/22 13:10: POC Glucose 193 H 09/17/22 16:40: POC Glucose 175 H Micro: Microbiology 09/17/22 14:35 Nasal Secretion SARS-CoV-2 Antigen (Rapid) - Final 09/11/22 10:15 Blood Culture (Wb) - Right Hand Blood Culture - Final No growth in 5 days. 09/11/22 11:20 Blood Culture (Wb) - Right Hand Blood Culture - Final No growth in 5 days. 09/14/22 13:57 Stool Enteric Bacteriology - Final 09/14/22 13:57 Stool C. difficile GDH Antigen & Toxins - Final Toxigenic C. difficile 09/14/22 13:57 Stool C. difficile DNA Amplification - Final 09/12/22 13:36 Stool Stool Occult Blood (ISAIAS) - Final Occult Blood Positive Rhythm Strip Rhythm Strip: Sinus Rhythm Rate: 85 Ectopy: PVC(s) Physical Exam Narrative General: Alert, oriented, no apparent distress HEENT: Atraumatic, normocephalic Eyes: extraocular movements grossly intact Neck: Supple Respiratory: normal respiratory effort Cardiovascular: no edema appreciated GI: nondistended Extremities: Moving all extremities Neuro: No overt focal neurological deficits Psych: Cooperative Assessment & Plan Assessment/Plan (1) Anemia: PLAN: Acute blood loss anemia secondary to angiodysplasias in the setting of chronic anemia from chronic kidney disease (2) Thrombocytopenia: PLAN: Thought to be secondary to dilution and acute illness.. (3) Dysphagia: PLAN: Status post PEG tube placement. Hopefully if she gets her strength back we will be able to remove the PEG in the future. She is making very good progress. She does have severe anasarca secondary to protein, nutrition, acute illness and other factors. Continue tube feedings. She was also discovered to have esophageal candidiasis. She was placed on fluconazole therapy. Continue that for approximately 7 days. (4) Metabolic acidosis: (5) C. difficile colitis: PLAN: She was discovered to have severe C. difficile colitis. She is on vancomycin 125 mg p.o. 4 times daily. She will need to continue that for approximately 14 days. Charges/Coding Visit Charges Inpatient E&M: 06199 Subs Hosp L3
[2022-09-17 08:14] VITALS: BP 131/68; PULSE 88; RESP 16; TEMP 36.8; O2SAT 94
[2022-09-17] MEDS: Insulin Lispro 100 UNIT/ML INSULN.PEN SC ×4 (08:28→20:47)
[2022-09-17] MEDS: Fluconazole 100 MG Tablet PO (08:30)
[2022-09-17] MEDS: Folic Acid/Vitamin B Comp W-C 1 Capsule 1 CAP PO (08:30)
[2022-09-17] MEDS: Cholecalciferol (VIT D3) 25 MCG TABLET (1,000 UNITS) 50 MCG PO (08:31)
[2022-09-17] MEDS: Topiramate 50 MG Tablet PO (08:31)
[2022-09-17] MEDS: Cyanocobalamin 500 MCG Tablet 1000 MCG PO (08:31)
[2022-09-17] MEDS: Venlafaxine XR 150 MG Capsule PO (08:31)
[2022-09-17] MEDS: Pantoprazole Sodium 40 MG Tablet PO ×2 (08:32→20:46)
[2022-09-17] MEDS: lamoTRIgine 25 MG Tablet PO (08:32)
[2022-09-17] MEDS: Empagliflozin 10 MG Tablet PO (08:32)
[2022-09-17] MEDS: levETIRAcetam 500 MG Tablet PO ×2 (08:32→20:46)
--- NOTE | 2022-09-17 09:55 | PN.RENAL_ITS ---
Subjective Subjective Resting in bed eating breakfast. No complaints. States tolerated HD yesterday with no cramping. Objective Data Objective Data Vital Signs: Vital Signs Temp Pulse Resp BP Pulse Ox O2 Del Method O2 Flow Rate 98.2 F 88 16 131/68 H 94 Room Air 2 09/17/22 08:14 09/17/22 08:14 09/17/22 08:14 09/17/22 08:14 09/17/22 08:14 09/17/22 08:14 09/11/22 12:02 Oxygen Flow Rate (L/min) 2 Oxygen Delivery Method Room Air Weight: 70.352 kg Body Mass Index (BMI) 27.4 Intake & Output: Intake and Output for Last 24 Hours 09/15/22 09/16/22 09/17/22 23:59 23:59 23:59 Intake Total 870 / 870 770 / 770 Output Total 0 / 0 Balance 870 / 870 770 / 770 Lab / Micro Data Result Diagrams: 09/17/22 06:00 09/17/22 06:00 Labs: Laboratory Results - last 24 hr 09/16/22 12:01: POC Glucose 255 H 09/16/22 15:05: WBC 9.0, RBC 2.78 L, Hgb 8.3 L, Hct 26.2 L, MCV 94.2, MCH 29.9, MCHC 31.7 L, RDW Std Deviation 70.6 H, RDW Coeff of Jacqueline 21.5 H, Plt Count 331, MPV 9.3, Immature Gran % (Auto) 0.700, Neut % (Auto) 68.1, Lymph % (Auto) 22.0, [place] % (Auto) 7.2, Eos % (Auto) 1.4, Baso % (Auto) 0.6, Absolute Neuts (auto) 6.1, Absolute Lymphs (auto) 1.98, Nucleated RBC % 0, Platelet Estimate ADEQUATE, RBC Morphology N CHROM, Polychromasia RARE, Hypochromasia 1+, Anisocytosis 1+, Macrocytosis 1+ 09/16/22 15:05: Sodium 140, Potassium 3.8, Chloride 107, Carbon Dioxide 28.0, Anion Gap 5, BUN 16, Creatinine 1.91 H, Estim Creat Clear Calc 26.56, Est GFR (MDRD) Af Amer 35 L, Est GFR (MDRD) Non-Af 29 L, BUN/Creatinine Ratio 8.4 L, Glucose 198 H, Calcium 7.9 L 09/16/22 16:34: POC Glucose 156 H 09/16/22 21:27: POC Glucose 205 H 09/17/22 06:00: WBC 6.2, RBC 2.77 L, Hgb 8.1 L, Hct 26.1 L, MCV 94.2, MCH 29.2, MCHC 31.0 L, RDW Std Deviation 71.8 H, RDW Coeff of Jacqueline 21.3 H, Plt Count 255, MPV 9.1, Immature Gran % (Auto) 0.600, Neut % (Auto) 58.4, Lymph % (Auto) 31.3, [place] % (Auto) 7.3, Eos % (Auto) 1.6, Baso % (Auto) 0.8, Absolute Neuts (auto) 3.6, Absolute Lymphs (auto) 1.93, Nucleated RBC % 0, Differential Comment SCANNED, Anisocytosis 1+, Macrocytosis 1+ 09/17/22 06:00: Sodium 142, Potassium 3.8, Chloride 109 H, Carbon Dioxide 29.0, Anion Gap 4 L, BUN 9, Creatinine 1.41 H, Estim Creat Clear Calc 35.98, Est GFR (MDRD) Af Amer 49 L, Est GFR (MDRD) Non-Af 41 L, BUN/Creatinine Ratio 6.4 L, Glucose 185 H, Calcium 7.9 L Micro: Microbiology 09/11/22 10:15 Blood Culture (Wb) - Right Hand Blood Culture - Final No growth in 5 days. 09/11/22 11:20 Blood Culture (Wb) - Right Hand Blood Culture - Final No growth in 5 days. 09/14/22 13:57 Stool Enteric Bacteriology - Final 09/14/22 13:57 Stool C. difficile GDH Antigen & Toxins - Final Toxigenic C. difficile 09/14/22 13:57 Stool C. difficile DNA Amplification - Final 09/12/22 13:36 Stool Stool Occult Blood (ISAIAS) - Final Occult Blood Positive Rhythm Strip Rhythm Strip: Sinus Rhythm Rate: 85 Ectopy: PVC(s) Physical Exam Narrative General: Alert and oriented x3 in no apparent distress. Heart: Normal S1, S2. No rubs, murmurs, or gallops. Lungs: Clear to auscultation bilaterally. Abdomen: Normal bowel sounds, soft, nontender, no guarding or rebound. PEG tube intact Extremities: No edema. Tunneled HD catheter dressing clean, dry and intact Assessment & Plan Assessment/Plan (1) MARY (acute kidney injury): (2) Chronic kidney disease, stage 3b: (3) HTN (hypertension): (4) Anemia: PLAN: Plan Impression/Plan: The patient is a 56-year-old woman with past history of type 2 diabetes mellitus, hypertension, hypothyroidism, and seizure disorder.? The patient was recently admitted to the hospital between 08/07/2022 until 08/21/2022 with circulatory shock and MARY from ATN. The patient returns to the hospital on 09/11/2022 with altered mental status possibly due to hypoglycemia. Nephrology is following for MARY on CKD. Acute kidney injury on chronic kidney disease stage IIIb. Prior to last hospital admission, baseline serum creatinine around 1.50 mg/dL based on the most recent laboratory test done through [facility] as outpatient on 06/22.? Serum creatinine was 1.58 mg/dL on 05/15/2022.? Likely CKD from diabetic nephropathy.? Her urine albumin to creatinine ratio from 11/20/2021 was 90.5 mg/g. MARY was due to ischemic ATN from circulatory shock. The patient also had metformin overdose with metformin level on 08/09/2022 of 32 mcg/mL. The patient was started on dialysis, initially on CRRT. She was sent home on IHD on MWF schedule. Pre-HD serum creatinine is rising with low urine output therefore patient is still requiring DATA RECOVERY PLANNER. She tolerated dialysis yesterday over 3 hours/3k bath with no fluid removal. Patient appears near dry weight, CXR was clear. We will continue to monitor for recovery of renal function. No acute indication for DATA RECOVERY PLANNER today, likely plan for HD tomorrow. Patient has history of urinary retention, discussed with patient importance of frequent bathroom trips; also discussed with patient if she notes bladder distention/or pain to inform nursing. Hypokalemia. Patient will dialyze on 3K bath in hospital and at kidney center for now. She likely does not need renal diet restrictions at this time. Appetite is improving and patient is taking food by mouth, quite possibly PEG tube can be removed in near future Hypertension. BP was low but improved. Off amlodipine. Patient appears near euvolemic Anemia. Hemoglobin is 8.6, hgb on admission 6.7 and received PRBC. Patient receives MOSES and iron at kidney center. We will continue monitor hemoglobin trends. Colonoscopy: Three bleeding colonic angiodysplastic lesions. Treated with a heater probe. Pseudomembranous enterocolitis. Cdiff on vancomycin 125 mg p.o. 4 times daily for 2 weeks and diflucan daily for esophageal candidiasis. Repeat colonoscopy for surveillance recommended. EGD: Large hiatal hernia, no specimens collected. Disposition; discharge plans in progress to [facility].
--- NOTE | 2022-09-17 10:09 | PCM.PN.HOSP ---
Reason for Visit Reason for Visit: Diagnoses Enterocolitis due to Clostridium difficile, not specified as recurrent (09/11/22) Anemia, unspecified (09/11/22) Thrombocytopenia, unspecified (09/11/22) Acidosis, unspecified (09/11/22) Hypokalemia (09/11/22) Essential (primary) hypertension (09/11/22) Acute kidney failure, unspecified (09/11/22) Chronic kidney disease, stage 3b (09/11/22) Dysphagia, unspecified (09/11/22) Subjective Subjective Doing well, no significant complaints today, no abdominal pain reported Objective Data Objective Data Vital Signs: Vital Signs Temp Pulse Resp BP Pulse Ox O2 Del Method O2 Flow Rate 98.2 F 88 16 131/68 H 94 Room Air 2 09/17/22 08:14 09/17/22 08:14 09/17/22 08:14 09/17/22 08:14 09/17/22 08:14 09/17/22 08:14 09/11/22 12:02 Oxygen Flow Rate (L/min) 2 Oxygen Delivery Method Room Air Weight: 70.352 kg Body Mass Index (BMI) 27.4 Intake & Output: Intake and Output for Last 24 Hours 09/15/22 09/16/22 09/17/22 23:59 23:59 23:59 Intake Total 870 / 870 770 / 770 Output Total 0 / 0 Balance 870 / 870 770 / 770 Lab / Micro Data Result Diagrams: 09/17/22 06:00 09/17/22 06:00 Labs: Laboratory Results - last 24 hr 09/16/22 12:01: POC Glucose 255 H 09/16/22 15:05: WBC 9.0, RBC 2.78 L, Hgb 8.3 L, Hct 26.2 L, MCV 94.2, MCH 29.9, MCHC 31.7 L, RDW Std Deviation 70.6 H, RDW Coeff of Jacqueline 21.5 H, Plt Count 331, MPV 9.3, Immature Gran % (Auto) 0.700, Neut % (Auto) 68.1, Lymph % (Auto) 22.0, [place] % (Auto) 7.2, Eos % (Auto) 1.4, Baso % (Auto) 0.6, Absolute Neuts (auto) 6.1, Absolute Lymphs (auto) 1.98, Nucleated RBC % 0, Platelet Estimate ADEQUATE, RBC Morphology N CHROM, Polychromasia RARE, Hypochromasia 1+, Anisocytosis 1+, Macrocytosis 1+ 09/16/22 15:05: Sodium 140, Potassium 3.8, Chloride 107, Carbon Dioxide 28.0, Anion Gap 5, BUN 16, Creatinine 1.91 H, Estim Creat Clear Calc 26.56, Est GFR (MDRD) Af Amer 35 L, Est GFR (MDRD) Non-Af 29 L, BUN/Creatinine Ratio 8.4 L, Glucose 198 H, Calcium 7.9 L 09/16/22 16:34: POC Glucose 156 H 09/16/22 21:27: POC Glucose 205 H 09/17/22 06:00: WBC 6.2, RBC 2.77 L, Hgb 8.1 L, Hct 26.1 L, MCV 94.2, MCH 29.2, MCHC 31.0 L, RDW Std Deviation 71.8 H, RDW Coeff of Jacqueline 21.3 H, Plt Count 255, MPV 9.1, Immature Gran % (Auto) 0.600, Neut % (Auto) 58.4, Lymph % (Auto) 31.3, [place] % (Auto) 7.3, Eos % (Auto) 1.6, Baso % (Auto) 0.8, Absolute Neuts (auto) 3.6, Absolute Lymphs (auto) 1.93, Nucleated RBC % 0, Differential Comment SCANNED, Anisocytosis 1+, Macrocytosis 1+ 09/17/22 06:00: Sodium 142, Potassium 3.8, Chloride 109 H, Carbon Dioxide 29.0, Anion Gap 4 L, BUN 9, Creatinine 1.41 H, Estim Creat Clear Calc 35.98, Est GFR (MDRD) Af Amer 49 L, Est GFR (MDRD) Non-Af 41 L, BUN/Creatinine Ratio 6.4 L, Glucose 185 H, Calcium 7.9 L Micro: Microbiology 09/11/22 10:15 Blood Culture (Wb) - Right Hand Blood Culture - Final No growth in 5 days. 09/11/22 11:20 Blood Culture (Wb) - Right Hand Blood Culture - Final No growth in 5 days. 09/14/22 13:57 Stool Enteric Bacteriology - Final 09/14/22 13:57 Stool C. difficile GDH Antigen & Toxins - Final Toxigenic C. difficile 09/14/22 13:57 Stool C. difficile DNA Amplification - Final 09/12/22 13:36 Stool Stool Occult Blood (ISAIAS) - Final Occult Blood Positive Rhythm Strip Rhythm Strip: Sinus Rhythm Rate: 85 Ectopy: PVC(s) Physical Exam Narrative General: Alert, oriented, no apparent distress HEENT: Atraumatic, normocephalic Eyes: extraocular movements grossly intact Neck: Supple Respiratory: normal respiratory effort Cardiovascular: no edema appreciated GI: nondistended Extremities: Moving all extremities Neuro: No overt focal neurological deficits Psych: Cooperative Assessment & Plan Assessment/Plan (1) Anemia: (2) HTN (hypertension): (3) Chronic kidney disease, stage 3b: (4) MARY (acute kidney injury): PLAN: Plan #Pseudomembranous colitis secondary to C. difficile -Seen on colonoscopy, on vancomycin #Delia esophagitis -Fluconazole for 1 week #Acute on chronic anemia -Hb was 6.7. 8.5 on 09/12 with 2 units of PRBCs. No overt blood appreciated but pt very difficult stick and yet to get a.m. labs -Iron panel showed iron level of 192 with TIBC of 164 and iron saturation of 117.1 and elevated ferritin level.? This is therefore not iron deficiency anemia and more represents anemia of chronic disease. -Had acute on chronic anemia during previous admissions 2 and was evaluated by GI. -Stool for occult blood ordered and was positive, GI evaluated and patient for upper endoscopy tomorrow plus or minus colonoscopy if she is agreeable -Cont PPI BID -09/14: No overt abnormalities on EGD, colonoscopy demonstrated 3 bleeding colonic angiodysplastic lesions which were treated with a heater probe and also pseudomembranous enterocolitis. -09/15: Hemoglobin stable #Acute metabolic encephalopathy due to hypoglycemia -resolved. To be evaluated by speech for possible PEG removal tomorrow during EGD -insulin lispro BID continued, long acting held, sliding scale also instiutide as well as jardiance -cont to adjust regimen #MARY on CKD stage IIIb on HD M/W/F -Nephrology following #Type 2 diabetes mellitus insulin lispro BID continued, long acting held, sliding scale also jardiance -cont to adjust regimen #Hypertension; -Holding bp medication due to borderline pressures today 09/17: Resumed 5 mg of amlodipine due to improved blood pressure #Seizure disorder: -on keppra and topiramate as well as lamotrigine #Depression: -on venlafaxine #Hyperlipidemia: -On statin DVT prophylaxis: SCDs Charges/Coding Visit Charges Inpatient E&M: 92864 Subs Hosp L2
[2022-09-17 12:16] VITALS: O2SAT 94
[2022-09-17] MEDS: amLODIPine 5 MG Tablet PO (13:07)
[2022-09-17 13:36] LABS: Bedside Glucose 193 mg/dL (74-106)
--- NOTE | 2022-09-17 15:03 | PCM.TXEXTCAR ---
Diet Diet Order/Speech Therapy: 09/14/22 16:21 Diet: Consistent Carb - Calorie Controlled Food consistency:: Soft & Bite Sized Liquid Consistency:: Regular/Thin Dietary Modifications:: Sodium Restricted Type of Dietary Supplement:: 8oz Ensure Clear w/ Break Is pt able to select menu?: Yes Diet Comments: Directly supervise.Make NPO/TF if worse resp status.MC or fort pud w/ L & D How many daily calories?: 1800 calorie Routine Orders/Code Status Suppository Type: Dulcolax 10mg Suppository Frequency: Daily PRN Code Status: Full Code Wound(s) coccyx: Wound Type: Pressure Injury Therapies Physical Therapy: Eval and Treat Occupational Therapy: Eval and Treat Speech Therapy: Eval and Treat Problem/Diagnosis (1) Anemia: Status: Acute Code(s): D64.9 - Anemia, unspecified (2) HTN (hypertension): Status: Chronic Code(s): I10 - Essential (primary) hypertension (3) Chronic kidney disease, stage 3b: Status: Acute Code(s): N18.32 - Chronic kidney disease, stage 3b (4) MARY (acute kidney injury): Status: Acute Code(s): N17.9 - Acute kidney failure, unspecified Plan 56-year-old female with history of type 2 diabetes mellitus, GERD, hypertension, seizure disorder who presented to [facility] 09/11/2022 with altered mental status and was found to have hypoglycemia of 37. She was given an amp of D50 and orange juice and her mental status improved. She had recently been admitted to the hospital for shock and was intubated and has been on dialysis since that admission. Additionally had a PEG tube which she used exclusively until shortly before presentation when she began to start eating. In ED blood pressure 93/60, white blood cell count 17.3, potassium 2.6, creatinine 1.38. Her hypoglycemic agents were held. She was followed by speech therapy and her dysphagia was improving was also followed by nephrology and receiving her dialysis. Due to her worsening anemia with a hemoglobin of 9.6 when she left the hospital previously and it dropped down to 6.8 her FOBT was checked and it was positive. She received 2 units of packed red blood cells, was placed on IV PPI twice daily, and GI consulted. Initially she was only agreeable to upper endoscopy but ultimately also was agreeable for colonoscopy. She had both endoscopy and colonoscopy 09/14. Endoscopy showed Delia esophagitis and colonoscopy showed 3 bleeding colonic angioplastic lesions as well as pseudomembranous enterocolitis. She was started on fluconazole and vancomycin. Hemoglobin was stable and patient denied any specific complaints, placement pursued. On the day of discharge she reported feeling fairly well overall with no abdominal pain or nausea. Discharge instructions as followed: DISCHARGE INSTRUCTIONS PLEASE READ *Please take this with you to your next doctors appointment* -Your amlodipine was decreased to 5 mg daily -You will need to continue dialysis as previously scheduled and following up with your curtain inspector -Continue fluconazole for another 4 days -Continue vancomycin 125 mg by mouth every 6 hours for 11 more days -You will need to follow-up with Dr. Hameed with GI in his office upon discharge to discuss PEG tube removal. Please call his office to schedule your hospital follow-up appointment (ph. [phone]) -Continue Jardiance but hold insulin. Continue to check your glucoses as this may need to be added back or an additional oral agent may need to be added but at this time you have periods of hypoglycemia which can be dangerous -Please call your primary care provider's office upon discharge to schedule a hospital follow up within 1 week. -For any concerning signs or symptoms please call 911 or proceed to the nearest emergency department #Pseudomembranous colitis secondary to C. difficile #Delia esophagitis #Acute on chronic anemia 2/2 colonic angiodysplasias in colon s/p heater prob #Acute metabolic encephalopathy due to hypoglycemia #MARY resolved on CKD stage IIIb on HD M/W/F #Type 2 diabetes mellitus #Hypertension; #Seizure disorder: #Depression: #Hyperlipidemia: Allergies/Procedures Done in Hospital Allergies propofol Allergy (Severe, Verified 09/11/22 09:49) Other Propofol infusion syndrome Procedures: - (Upper and lower endoscopies) Type of Care/Length of Stay Estimated LOS: Convalescent Care Less Than 30 days Type of Care Needed: Skilled Rehab Potential: Good Prognosis: Good Additional Orders/Day of Discharge Day of Discharge: 09/17/22 Dietary and Speech Recommendations Dietitian Recommendations/Changes: 1) 1800 calorie/consistent carbohydrate/sodium-restricted diet w/ texture/consistency modifications per BINDER TECHNICIAN--mechanical soft food (minced/moist) and thin liquids. 2) If pt to become NPO and unable to consume nutrition via PO diet, recommend Nepro via PEG- 240mL bolus 4x/day w/ 90mL H2O flush before and after each bolus to provide 1699 calories, 78 g protein, and 1470mL total fluid/day. 3) Continue 240ml ensure clear w/ breakfast; magic cup or fortified pudding w/ lunch and dinner as tolerated. 4) Daily wts. Monitor renal labs and adjust nutrition recommendations as indicated. Discharge Plan Admission Admit Date/Time: 09/11/22 12:32 Primary Reason for Your Visit: Hypoglycemia Attending Provider: Cecilia Aguillon Primary Care Provider: Abdirashid Anthony Consulting Providers: Radha Jose ; Violeta Keith Instructions Patient Instructions: Clostridium Difficile Infection Additional Instructions / Restrictions: DISCHARGE INSTRUCTIONS PLEASE READ *Please take this with you to your next doctors appointment* -Your amlodipine was decreased to 5 mg daily -You will need to continue dialysis as previously scheduled and following up with your curtain inspector -Continue fluconazole for another 4 days -Continue vancomycin 125 mg by mouth every 6 hours for 11 more days -You will need to follow-up with Dr. Hameed with GI in his office upon discharge to discuss PEG tube removal. Please call his office to schedule your hospital follow-up appointment (ph. [phone]) -Continue Jardiance but hold insulin. Continue to check your glucoses as this may need to be added back or an additional oral agent may need to be added but at this time you have periods of hypoglycemia which can be dangerous -Please call your primary care provider's office upon discharge to schedule a hospital follow up within 1 week. -For any concerning signs or symptoms please call 911 or proceed to the nearest emergency department Discharge Orders/Prescriptions Prescriptions: New fluconazole 100 mg Tablet 100 mg PO DAILY 4 Days Qty: 4 0RF Firvanq 25 mg/mL Recon Soln 125 mg PO Q6 11 Days Qty: 0 0RF Continued atorvastatin 20 MG tablet 20 mg feeding tube QHS venlafaxine 150 MG capsule 150 mg PO DAILY insulin aspart U-100 [Novolog FlexPen U-100 Insulin] 100 UNITS/ML insulin pen 40 units subcut BIDCM trazodone 50 mg tablet 50 mg feeding tube DAILY levetiracetam 500 mg tablet 500 mg PO BID lamotrigine 25 mg tablet 25 mg PO DAILY topiramate 50 mg tablet 50 mg feeding tube DAILY cholecalciferol (vitamin D3) 25 mcg (1,000 unit) Tablet 50 mcg feeding tube DAILY Jardiance 10 mg Tablet 10 mg PO DAILY cyanocobalamin (vitamin B-12) 1,000 mcg Capsule 1,000 mcg PO DAILY Santyl 250 unit/gram Ointment 1 applic TOPICAL QHS B complex with C 20-folic acid 1 mg Capsule 1 cap PO DAILY esomeprazole magnesium [Nexium Packet] [address] For Susp In Packet 20 mg PO DAILY Changed amlodipine 10 mg tablet 5 mg PO DAILY 30 Days Qty: 0 0RF Discontinued insulin glargine [Lantus Solostar U-100 Insulin] 100 unit/mL (3 mL) Insulin Pen 30 unit SUBCUT QHS Referrals / Follow Up: Eric Hameed DO [Med Staff - Active Staff] - See Referral Note (You will need to follow-up with Dr. Hameed with GI in his office upon discharge. Please call his office to schedule your hospital follow-up appointment (ph. [phone])) Abdirashid Anthony MD [Primary Care Provider] - Within 1 Week Disposition Disposition (needs filled in before D/C Order can be placed): Detention Facility
[2022-09-17 15:14] VITALS: BP 135/70; PULSE 79; RESP 16; TEMP 36.9; O2SAT 97
--- NOTE | 2022-09-17 15:14 | DS.PCM_ITS ---
Providers Date of Admission: 09/11/22 Date of Discharge: 09/17/22 Primary Care Physician: Dr. Abdirashid Anthony MD Consultations 09/11/22 15:19 Consult: Nephrology Routine Consulting Provider: Radha Jose Reason for Consult: ESRD, on dialysis EMERGENT Consult: No Notified: Yes Date Notified: 09/11/22 Time Notified: 15:19 Method of Notification: Text 09/11/22 17:23 Consult: Gastroenterology Routine Consulting Provider: [facility] Reason for Consult: acute on chronic anemia EMERGENT Consult: No Notified: Yes Date Notified: 09/11/22 Time Notified: 17:24 Method of Notification: Text 09/12/22 18:26 Consult: Gastroenterology Routine Consulting Provider: [facility] Reason for Consult: acute on chronic anemia EMERGENT Consult: No Notified: Yes Date Notified: 09/12/22 Time Notified: 18:26 Method of Notification: Text Reason For Visit: HYPOGLYCEMIA, ASPIRATION PNEUMONIA Diagnosis Discharge Diagnosis (1) Anemia: Status: Acute Code(s): D64.9 - Anemia, unspecified (2) HTN (hypertension): Status: Chronic Code(s): I10 - Essential (primary) hypertension (3) Chronic kidney disease, stage 3b: Status: Acute Code(s): N18.32 - Chronic kidney disease, stage 3b (4) MARY (acute kidney injury): Status: Acute Code(s): N17.9 - Acute kidney failure, unspecified Plan #Pseudomembranous colitis secondary to C. difficile #Delia esophagitis #Acute on chronic anemia 2/2 colonic angiodysplasias in colon s/p heater prob #Acute metabolic encephalopathy due to hypoglycemia #MARY resolved on CKD stage IIIb on HD M/W/F #Type 2 diabetes mellitus #Hypertension; #Seizure disorder: #Depression: #Hyperlipidemia: Medications at Discharge Home Medications atorvastatin 20 mg tablet 20 mg feeding tube QHS CHOLESTEROL 07/04/18 insulin aspart U-100 100 unit/mL (3 mL) subcutaneous pen (Novolog FlexPen U-100 Insulin aspart) 40 units subcut BIDCM DM 07/04/18 venlafaxine 150 mg capsule,extended release 24 hr 150 mg PO DAILY MOOD 07/04/18 cholecalciferol (vitamin D3) 25 mcg (1,000 unit) tablet 50 mcg feeding tube DAILY SUPPLEMENT 08/07/22 cyanocobalamin (vitamin B-12) 1,000 mcg capsule 1,000 mcg PO DAILY SUPPLEMENT 08/07/22 empagliflozin 10 mg tablet (Jardiance) 10 mg PO DAILY DM 08/07/22 lamotrigine 25 mg tablet 25 mg PO DAILY SEZIURES 08/07/22 levetiracetam 500 mg tablet 500 mg PO BID SEZIURES 08/07/22 topiramate 50 mg tablet 50 mg feeding tube DAILY SEZIURES 08/07/22 trazodone 50 mg tablet 50 mg feeding tube DAILY SLEEP 08/07/22 collagenase clostridium histo. 250 unit/gram topical ointment (Santyl) 1 applic topical QHS WOUND 09/11/22 esomeprazole magnesium 20 mg granules delayed release for susp (Nexium Packet) 20 mg PO DAILY HEARTBUN 09/11/22 vitamin B complex and vitamin C no.20-folic acid 1 mg capsule 1 cap PO DAILY SUPPLEMENT 09/11/22 amlodipine 10 mg tablet 5 mg PO DAILY HTN 30 days #0 tabs 09/17/22 fluconazole 100 mg tablet 100 mg PO DAILY 4 days #4 tabs 09/17/22 vancomycin 25 mg/mL oral solution (Firvanq) 125 mg (5 mL) PO Q6 11 days #0 mL 09/17/22 Hospital Course Procedures - (Dialysis, endoscopy, colonoscopy) Summary of Care Provided Minutes Spent on Discharge: 32 Hospital Course: 56-year-old female with history of type 2 diabetes mellitus, GERD, hypertension, seizure disorder who presented to [facility] 09/11/2022 with altered mental status and was found to have hypoglycemia of 37. She was given an amp of D50 and orange juice and her mental status improved. She had recently been admitted to the hospital for shock and was intubated and has been on dialysis since that admission. Additionally had a PEG tube which she used exclusively until shortly before presentation when she began to start eating. In ED blood pressure 93/60, white blood cell count 17.3, potassium 2.6, creatinine 1.38. Her hypoglycemic agents were held. She was followed by speech therapy and her dysphagia was improving was also followed by nephrology and receiving her dialysis. Due to her worsening anemia with a hemoglobin of 9.6 when she left the hospital previously and it dropped down to 6.8 her FOBT was checked and it was positive. She received 2 units of packed red blood cells, was placed on IV PPI twice daily, and GI consulted. Initially she was only agreeable to upper endoscopy but ultimately also was agreeable for colonoscopy. She had both endoscopy and colonoscopy 09/14. Endoscopy showed Delia esophagitis and colonoscopy showed 3 bleeding colonic angioplastic lesions as well as pseudomembranous enterocolitis. She was started on fluconazole and vancomycin. Hemoglobin was stable and patient denied any specific complaints, placement pursued. On the day of discharge she reported feeling fairly well overall with no abdominal pain or nausea. Discharge instructions as followed: DISCHARGE INSTRUCTIONS PLEASE READ *Please take this with you to your next doctors appointment* -Your amlodipine was decreased to 5 mg daily -You will need to continue dialysis as previously scheduled and following up with your cutter grind tool technician -Continue fluconazole for another 4 days -Continue vancomycin 125 mg by mouth every 6 hours for 11 more days -You will need to follow-up with Dr. Hameed with GI in his office upon discharge to discuss PEG tube removal. Please call his office to schedule your hospital follow-up appointment (ph. [phone]) -Continue Jardiance but hold insulin. Continue to check your glucoses as this may need to be added back or an additional oral agent may need to be added but at this time you have periods of hypoglycemia which can be dangerous -Please call your primary care provider's office upon discharge to schedule a hospital follow up within 1 week. -For any concerning signs or symptoms please call 911 or proceed to the nearest emergency department Physical Exam Narrative General: Alert, oriented, no apparent distress HEENT: Atraumatic, normocephalic Eyes: extraocular movements grossly intact Neck: Supple Respiratory: normal respiratory effort Cardiovascular: no edema appreciated GI: nondistended Extremities: Moving all extremities Neuro: No overt focal neurological deficits Psych: Cooperative Weight / BMI Weight Weight: 70.352 kg Body Mass Index (BMI) 27.4 ABG / Lab / Microbiology Data Result Diagrams: 09/17/22 06:00 09/17/22 06:00 Laboratory: Laboratory Results - last 24 hr 09/16/22 15:05: WBC 9.0, RBC 2.78 L, Hgb 8.3 L, Hct 26.2 L, MCV 94.2, MCH 29.9, MCHC 31.7 L, RDW Std Deviation 70.6 H, RDW Coeff of Jacqueline 21.5 H, Plt Count 331, MPV 9.3, Immature Gran % (Auto) 0.700, Neut % (Auto) 68.1, Lymph % (Auto) 22.0, [place] % (Auto) 7.2, Eos % (Auto) 1.4, Baso % (Auto) 0.6, Absolute Neuts (auto) 6.1, Absolute Lymphs (auto) 1.98, Nucleated RBC % 0, Platelet Estimate ADEQUATE, RBC Morphology N CHROM, Polychromasia RARE, Hypochromasia 1+, Anisocytosis 1+, Macrocytosis 1+ 09/16/22 15:05: Sodium 140, Potassium 3.8, Chloride 107, Carbon Dioxide 28.0, Anion Gap 5, BUN 16, Creatinine 1.91 H, Estim Creat Clear Calc 26.56, Est GFR (MDRD) Af Amer 35 L, Est GFR (MDRD) Non-Af 29 L, BUN/Creatinine Ratio 8.4 L, Glucose 198 H, Calcium 7.9 L 09/16/22 16:34: POC Glucose 156 H 09/16/22 21:27: POC Glucose 205 H 09/17/22 06:00: WBC 6.2, RBC 2.77 L, Hgb 8.1 L, Hct 26.1 L, MCV 94.2, MCH 29.2, MCHC 31.0 L, RDW Std Deviation 71.8 H, RDW Coeff of Jacqueline 21.3 H, Plt Count 255, MPV 9.1, Immature Gran % (Auto) 0.600, Neut % (Auto) 58.4, Lymph % (Auto) 31.3, [place] % (Auto) 7.3, Eos % (Auto) 1.6, Baso % (Auto) 0.8, Absolute Neuts (auto) 3.6, Absolute Lymphs (auto) 1.93, Nucleated RBC % 0, Differential Comment SCANNED, Anisocytosis 1+, Macrocytosis 1+ 09/17/22 06:00: Sodium 142, Potassium 3.8, Chloride 109 H, Carbon Dioxide 29.0, Anion Gap 4 L, BUN 9, Creatinine 1.41 H, Estim Creat Clear Calc 35.98, Est GFR (MDRD) Af Amer 49 L, Est GFR (MDRD) Non-Af 41 L, BUN/Creatinine Ratio 6.4 L, Glucose 185 H, Calcium 7.9 L 09/17/22 13:10: POC Glucose 193 H Microbiology: Microbiology 09/11/22 10:15 Blood Culture (Wb) - Right Hand Blood Culture - Final No growth in 5 days. 09/11/22 11:20 Blood Culture (Wb) - Right Hand Blood Culture - Final No growth in 5 days. 09/14/22 13:57 Stool Enteric Bacteriology - Final 09/14/22 13:57 Stool C. difficile GDH Antigen & Toxins - Final Toxigenic C. difficile 09/14/22 13:57 Stool C. difficile DNA Amplification - Final 09/12/22 13:36 Stool Stool Occult Blood (ISAIAS) - Final Occult Blood Positive Meaningful Use Info Meaningful Use Diagnoses (Choose all that apply): None applicable Discharge Plan Admission Admit Date/Time: 09/11/22 12:32 Primary Reason for Your Visit: Hypoglycemia Attending Provider: Cecilia Aguillon Primary Care Provider: Abdirashid Anthony Consulting Providers: Radha Jose ; Violeta Keith Instructions Patient Instructions: Clostridium Difficile Infection Additional Instructions / Restrictions: DISCHARGE INSTRUCTIONS PLEASE READ *Please take this with you to your next doctors appointment* -Your amlodipine was decreased to 5 mg daily -You will need to continue dialysis as previously scheduled and following up with your cutter grind tool technician -Continue fluconazole for another 4 days -Continue vancomycin 125 mg by mouth every 6 hours for 11 more days -You will need to follow-up with Dr. Hameed with GI in his office upon discharge to discuss PEG tube removal. Please call his office to schedule your hospital follow-up appointment (ph. [phone]) -Continue Jardiance but hold insulin. Continue to check your glucoses as this may need to be added back or an additional oral agent may need to be added but at this time you have periods of hypoglycemia which can be dangerous -Please call your primary care provider's office upon discharge to schedule a hospital follow up within 1 week. -For any concerning signs or symptoms please call 911 or proceed to the nearest emergency department Discharge Orders/Prescriptions Prescriptions: New fluconazole 100 mg Tablet 100 mg PO DAILY 4 Days Qty: 4 0RF Firvanq 25 mg/mL Recon Soln 125 mg PO Q6 11 Days Qty: 0 0RF Continued atorvastatin 20 MG tablet 20 mg feeding tube QHS venlafaxine 150 MG capsule 150 mg PO DAILY insulin aspart U-100 [Novolog FlexPen U-100 Insulin] 100 UNITS/ML insulin pen 40 units subcut BIDCM trazodone 50 mg tablet 50 mg feeding tube DAILY levetiracetam 500 mg tablet 500 mg PO BID lamotrigine 25 mg tablet 25 mg PO DAILY topiramate 50 mg tablet 50 mg feeding tube DAILY cholecalciferol (vitamin D3) 25 mcg (1,000 unit) Tablet 50 mcg feeding tube DAILY Jardiance 10 mg Tablet 10 mg PO DAILY cyanocobalamin (vitamin B-12) 1,000 mcg Capsule 1,000 mcg PO DAILY Santyl 250 unit/gram Ointment 1 applic TOPICAL QHS B complex with C 20-folic acid 1 mg Capsule 1 cap PO DAILY esomeprazole magnesium [Nexium Packet] [address] For Susp In Packet 20 mg PO DAILY Changed amlodipine 10 mg tablet 5 mg PO DAILY 30 Days Qty: 0 0RF Discontinued insulin glargine [Lantus Solostar U-100 Insulin] 100 unit/mL (3 mL) Insulin Pen 30 unit SUBCUT QHS Referrals / Follow Up: Eric Hameed DO [Med Staff - Active Staff] - See Referral Note (You will need to follow-up with Dr. Hameed with GI in his office upon discharge. Please call his office to schedule your hospital follow-up appointment (ph. [phone])) Abdirashid Anthony MD [Primary Care Provider] - Within 1 Week Disposition Disposition (needs filled in before D/C Order can be placed): Group Home Facility Charges/Coding Visit Charges Inpatient E&M: 19652 Disch Hosp >30min
--- NOTE | 2022-09-17 16:19 | CASEMGMT ---
[facility] received approval for patient. SW notified physician that patient was approved. SW also notified patient. SW called [facility] and arranged for patient to get picked up at 6p via wheelchair. SW sent orders, med list, COVID test, and seed cone picker time to [facility] via [employer]. SW notified RN, trader fixed income, and patient's via phone. Plan: d/c to [facility] under skilled level of care. Physicians transported patient via wheelchair which was arranged through [facility]. Carolynn Pino MSW JEFRY
--- NOTE | 2022-09-17 16:27 | CASEMGMT ---
Addendum entered by Carolynn Pino 09/17/22 16:45: JANEL called [facility] and notified Vira that patient will be there to have her dialysis tomorrow and that patient is going to [facility] today. Vira thanked JANEL. Carolynn CAPPS Original Note: JANEL called patient's nurse case management Barbara with [facility] ([phone]) and let her know patient will be going to [place] today. Carolynn CAPPS
[2022-09-17 17:00] LABS: Bedside Glucose 175 mg/dL (74-106)
[2022-09-17 20:42] VITALS: BP 128/80; PULSE 82; RESP 16; TEMP 36.7; O2SAT 96
[2022-09-17] MEDS: Atorvastatin Calcium 20 MG Tablet PO (20:46)
[2022-09-17] MEDS: traZODone 50 MG Tablet PO (20:46)
[2022-09-18 00:30] LABS: Bedside Glucose 243 mg/dL (74-106)
== END 2022-09-17 21:45 | disposition skilled nursing facility (03) | DRG 253 ==
LOC: ED 11:14 → PCU 12:50
PROVIDERS: Anesthesiology; Internal Medicine Gastroenterology; Admitting Provider Student in an Organized Health Care Education/Training Program; Emergency Provider Emergency Medicine; PCP Internal Medicine; Visit Provider Internal Medicine
PROC: 0DJD8ZZ Inspection of Lower Intestinal Tract, Via Natural or Artificial Opening Endoscopic (ICD-10-PCS; CPT 45378; principal; 2022-09-14 12:55)
DX: K55.21 Angiodysplasia of colon with hemorrhage (principal); A04.72 Enterocolitis due to Clostridium difficile, not specified as recurrent; E11.649 Type 2 diabetes mellitus with hypoglycemia without coma; B37.81 Candidal esophagitis; D63.1 Anemia in chronic kidney disease; D62 Acute posthemorrhagic anemia; N17.9 Acute kidney failure, unspecified; Z99.2 Dependence on renal dialysis; G40.909 Epilepsy, unspecified, not intractable, without status epilepticus; E11.21 Type 2 diabetes mellitus with diabetic nephropathy; E11.22 Type 2 diabetes mellitus with diabetic chronic kidney disease; Z79.4 Long term (current) use of insulin; N18.32 Chronic kidney disease, stage 3b; Z93.1 Gastrostomy status; I12.9 Hypertensive chronic kidney disease with stage 1 through stage 4 chronic kidney disease, or unspecified chronic kidney disease; F32.A Depression, unspecified; E87.6 Hypokalemia; E78.5 Hyperlipidemia, unspecified; K44.9 Diaphragmatic hernia without obstruction or gangrene; K21.00 Gastro-esophageal reflux disease with esophagitis, without bleeding; Z79.84 Long term (current) use of oral hypoglycemic drugs; Z79.899 Other long term (current) drug therapy
CPT/HCPCS: 36415; 71045; 80048; 80053; 82274; 82728; 82962; 83036; 83540; 83550; 83605; 83735; 85025; 85610; 85730; 86850; 86900; 86901; 86920; 86922; 87040; 87426; 87493; 87506; 88305; 90937; 92507; 92526; 92610; 93005; 97110; 97116; 97161; 97166; 97530; 97535; 97802; 97803; 99285; J7030; J7040; P9016; A4216; G0257; J0295; J2405

== ENCOUNTER → 2022-09-11 | Outpatient (REF) | payer MEDICAID, SELFPAY ==
[2022-09-11 09:18] LABS: ALB/GLOB Ratio 0.7 RATIO (0.9-2.4); AST(SGOT) 24 U/L (15-37); Alanine Aminotransfer ALT/SGPT 17 U/L (13-56); Albumin, Serum 1.8 g/dL (3.2-5.0); Alkaline Phosphatase 105 U/L (45-117); Anion Gap 6 (5-15); BUN 43 mg/dL (7-18); BUN/Creat Ratio 20.3 RATIO (10-20); Calcium,Total 7.9 mg/dL (8.5-10.1); Chloride 98 mmol/L (98-107); Creatinine, Serum 2.12 mg/dL (0.55-1.02); EST Glomerular Filtration Rate 25 mL/min (>60); Est Glom Filt Rate - Afr Amer 31 mL/min (>60); Globulin 2.7 g/dL (2.2-4.2); Glucose 97 mg/dL (74-106); Potassium 2.9 mmol/L (3.5-5.1); Protein, Total 4.5 g/dL (6.4-8.2); Sodium Level 136 mmol/L (136-145)
== END | disposition home or self-care (01) ==
LOC: OLS.SW 05:00
PROVIDERS: PCP Internal Medicine; Visit Provider Family Medicine
DX: N18.32 Chronic kidney disease, stage 3b (principal)
CPT/HCPCS: 36415; 80053

== ENCOUNTER 2022-11-19 07:44 | Outpatient (RCR) | payer MEDICAID, SELFPAY ==
[2022-11-19 08:09] VITALS: BP 138/57; PULSE 78; RESP 16; TEMP 36.1; BMI 23.0
--- NOTE | 2022-11-19 11:13 | HP.PCM_ITS ---
History of Present Illness Date of Service: 11/19/22 Chief Complaint: Gluteal Cleft/Coccygeal Ulcer History of Wound: Ms. Lowe is a 57 yo who presents to the wound center due to nonhealing buttock area ulcer. Has been present for about 3 months. Denies any known precipitating factor. Measures so far tried at home have not been helpful. Area feels irritated/sore. No other acute concerns reported at this time, no chills, fever, nausea, vomiting or diarrhea. [facility] [place] Medical History (Updated 11/19/22 @ 11:[address] Dhiraj Marroquin MD) MARY (acute kidney injury) Anemia Anxiety and depression Chronic anemia Chronic pancreatitis Decubitus ulcer of coccygeal region, stage 1 Depression Dermatitis Diabetes mellitus, type 2 Dysphagia GERD (gastroesophageal reflux disease) Gluteal cleft wound HTN (hypertension) Hyperlipidemia Hypokalemia Hypothyroidism Insomnia Leukocytosis Seizure disorder Vitamin D deficiency Home Medications venlafaxine 150 mg capsule,extended release 24 hr 150 mg PO DAILY MOOD 07/04/18 [History Last Taken 09/10/22] cyanocobalamin (vitamin B-12) 1,000 mcg capsule 1,000 mcg PO DAILY SUPPLEMENT 08/07/22 [History Last Taken 09/11/22] lamotrigine 25 mg tablet 25 mg PO DAILY SEZIURES 08/07/22 [History Last Taken 09/11/22] levetiracetam 500 mg tablet 500 mg PO BID SEZIURES 08/07/22 [History Last Taken 09/11/22] vitamin B complex and vitamin C no.20-folic acid 1 mg capsule 1 cap PO DAILY SUPPLEMENT 09/11/22 [History Last Taken 09/10/22] amlodipine 10 mg tablet 5 mg PO DAILY HTN 30 days #0 tabs 09/17/22 [Rx Last Taken 09/11/22] atorvastatin 20 mg tablet 20 mg PO QHS CHOLESTEROL #30 tabs 09/17/22 [Rx Last Taken 09/10/22] cholecalciferol (vitamin D3) 25 mcg (1,000 unit) tablet 50 mcg PO DAILY SUPPLEMENT #30 tabs 09/17/22 [Rx Last Taken 09/11/22] topiramate 50 mg tablet 50 mg PO DAILY SEZIURES #30 tabs 09/17/22 [Rx Last Taken 09/11/22] trazodone 50 mg tablet 50 mg PO DAILY SLEEP #30 tabs 09/17/22 [Rx Last Taken 09/10/22] acetaminophen 500 mg capsule 1,000 mg PO Q6H PRN Pain 11/19/22 [History Last Taken Unknown] [id number]-[id number] 36,000-114,000-180,000 unit capsule,delay rel (Creon) 1 cap PO TID 11/19/22 [History Last Taken Unknown] Allergy/AdvReac Type Severity Reaction Status Date / Time propofol Allergy Severe Other Verified 11/19/22 08:18 Surgical History H/O gastric bypass Social History household members: spouse Smoking Status: Never smoker alcohol intake: never substance use type: does not use ROS Constitutional Constitutional: Reports fatigue; Denies anorexia, chills, fever(s), malaise or weakness Eyes Eyes: Denies change in vision, discharge from eye(s), erythema, excessive blinking, exophthalmos or periorbital itching ENT HEENT: Denies dysphagia, facial pain, foreign body in nose, headache(s), loss taste/smell, mouth lesions or nasal discharge Cardiovascular Cardiovascular: Denies chest pain, dyspnea on exertion, edema, lightheadedness, orthopnea, palpitations or rapid heart rate Respiratory/Chest Respiratory/Chest: Denies cough, dyspnea, productive cough, shortness of breath at rest or shortness of breath with exertion Gastrointestinal Gastrointestinal: Reports nausea and vomiting; Denies abdominal pain, diarrhea or melena Genitourinary Genitourinary: Denies burning urination, difficulty urinating, dysuria, flank pain or hematuria Musculoskeletal Musculoskeletal: Denies arthralgias, back pain or loss of height Integumentary Integumentary: Denies bleeding lesions, change in pigmentation, furuncle or jaundice Neurologic Neurologic: Denies burning sensations, confusion, dizziness, focal weakness or headache(s) Psychiatric Psychiatric: Denies anxiety, behavioral changes, depression, homicidal ideation, memory loss, tactile hallucinations or visual hallucinations Endocrine Endocrinology: Denies change in body appearance, deepening of the voice, excessive sweating or increase in ring/shoe/hat size Allergic/Immunologic Allergic/Immunologic: Denies itchy eyes, lip swelling, throat swelling or tongue swelling Vital Signs Vital Signs Vital Signs: 11/19/22 08:09 Temperature 96.9 F L Temperature Source Temporal Pulse Rate 78 Respiratory Rate 16 Blood Pressure 138/57 H Blood Pressure Mean 84 Blood Pressure Source Monitor Blood Pressure Position Sitting Blood Pressure Location Left Arm Oxygen Delivery Method Room Air Weight Weight: 130 lb Body Mass Index (BMI) 23.0 Physical Exam Const alert, oriented x3 and no apparent distress General Appearance: cooperative HEENT normocephalic, head/scalp atraumatic and hearing grossly normal bilaterally Eyes EOMs intact bilaterally Neck supple Resp normal respiratory effort and clear to auscultation bilaterally Cardio regular rate, regular rhythm, S1 normal heart sound and S2 normal heart sound GI GI Narrative: PEG tube Extremity normal to inspection, full ROM and no clubbing, cyanosis or edema Skin Wounds: wounds noted Neuro oriented x3, CN's II-XII intact bilaterally, moves all extremities and no focal motor deficits Sensorium / Orientation: awake and alert Motor Exam: strength 5/5 throughout Psych thought process normal, cooperative and affect normal Appearance: appropriate Debridement Note Debridement Note Post-Debridement Measurements and Additional Note: Post-Debridement Measurements/Treatment - Nurse 1 - General Ulcer Assessment Start: 11/19/22 08:09 Freq: Status: Active Protocol: LIBAN Activity Type Activity Date Activity User E-sign Co-sign Detail Recorded Client Recorded Date Recorded By Document 11/19/22 08:09 [facility] [id number] 11/19/22 08:14 [facility] 11/19/22 08:09 - Today's Visit Information Type of service Initial Visit Arrival Mode Ambulatory Transfer Assistance None Patient Identification Verified (Name & Yes ) Patient Requires Transmission-Based No Precautions Height and Weight Height 5 ft 3 in Weight 130 lb Weight in Pounds 130.0 lbs Weight Measurement Method Stated by Patient Body Mass Index (BMI) 23.0 BMI Classification Normal BSA - Brian 1.61 Vital Signs Temperature (97.8 F-99.1 F) 96.9 F L Temperature Source Temporal Pulse Rate (60-100) 78 Pulse Location Monitor Respiratory Rate (12-18) 16 Respiratory rate source Observation Oxygen Delivery Method Room Air Blood Pressure (90/60-120/80) 138/57 H Blood Pressure Mean 84 Source Monitor Position Sitting Blood Pressure Location Left Arm History Since Last Visit- (Skip if this is Patient's initial visit) Left Footwear Regular Shoe Right Footwear Regular Shoe Pain Scale: 0-10 Numeric Is Patient Pain Free? Yes Communication Assessment Preferred language Mohawk Control Panel Assembler Required No Able to Read Yes Able to Write Yes Communication Tools None Right Hearing Abillity Normal Left Hearing Abillity Normal Visual Assistive Devices Glasses Teaching Assessment Preferences Verbal,Written, Audio/Visual, Demonstration Barriers to Learning None Readiness To Learn Excellent Willingness to Engage in Self Management High Activies Readiness to Engage in Self Management High Activities Anxiety Level Calm Cooperation Cooperative Perception Coherent Interest in Health Problem Asks Questions Education Importance Acknowledges Need Does Patient Smoke tobacco or other No substances Smoking Status Never smoker Is Patient Diabetic Yes Culture/Mormon/Trade Promotion Analyst Cultural/Mormon Needs that may affect No Treatment Plan Teaching: Wound Center *Welcome to the Wound Center -Person Taught Patient -Teaching Method Discussion -Response to teaching Verbalize understanding Welcome to the Wound Care Center English HARP - Nurse 1 - General Ulcer Measurement Start: 11/19/22 08:09 Freq: Status: Active Protocol: Activity Type Activity Date Activity User E-sign Co-sign Detail Recorded Client Recorded Date Recorded By Document 11/19/22 08:09 [facility] [id number] 11/19/22 08:14 [facility] 11/19/22 08:09 Wound Center Nurse 1 #1- coccyx -Combined with other wound No -Current Size (cm) - Length 0.3 -Current Size (cm) - Width 0.2 -Current Size (cm) - Depth 0.1 -Total Square Cm 0.06 -Date of Last Picture (Recall this 11/19/22 field) -Photo Taken Yes -Tunneling No -Undermining/Tunneling No -Circular Undermining No -Exudate Amt Small -Exudate Type Serosanguineous -Wound Margin Distinct, Outline Attached -Granulation Amt Large (67-100%) -Granulation Quality Red -Slough/Fibrin No -Necrosis Amt None Present (0 %) -Texture (Hina-wound Skin Appearance) Assessed, Scarring -Moisture (Hina-wound Skin Appearance) Assessed -Color (Hina-wound Skin Appearance) Assessed -Temperature (Hina-wound Skin No Abnormality Appearance) (Pt Warm) -Tenderness on Palpation (Hina-wound No Skin Appearance) -Ulcer Cleansing Rinsed/ Irrigated with Saline -Foul Odor after Cleansing No -Anesthetic Used 5% Lidocaine Gel WC - Nurse 2 - General Ulcer CM Notes Start: 11/19/22 08:09 Freq: Status: Active Protocol: Activity Type Activity Date Activity User E-sign Co-sign Detail Recorded Client Recorded Date Recorded By Document 11/19/22 08:39 MW [id number] 11/19/22 08:44 MW 11/19/22 08:39 Wound Center Nurse 2 -Time 08:39 -Correct Patient Yes -Correct Side, Site, Position Yes -Correct Procedure Yes -Procedure Performed No -Tunneling No -Undermining/Tunneling No -Circular Undermining No -Wound/Ulcer Outcome Not Healed -Ulcer Cleansing Rinsed/ Irrigated with Saline -Foul Odor after Cleansing No -Bioengineered Tissue No -Bleeding Controlled with NA -Offloading No Pain Scale: 0-10 Numeric Is Patient Pain Free? Yes Charges/Coding Visit Charges Office Visits / Consults: 88252 OV L3 Est Assessment/Plan Assessment/Plan (1) Gluteal cleft wound: CODE(S): S31.809A - Unspecified open wound of unspecified buttock, initial encounter QUALIFIERS: Encounter type: initial encounter Laterality: unspecified laterality Qualified Code(s): S31.809A - Unspecified open wound of unspecified buttock, initial encounter (2) Decubitus ulcer of coccygeal region, stage 1: CODE(S): L89.151 - Pressure ulcer of sacral region, stage 1 (3) Dermatitis: CODE(S): L30.9 - Dermatitis, unspecified PLAN: Plan No debridement completed today, superficial ulcer/scabbing/dryness. She admits that she does not really moisturize that area. Aquaphor healing ointment 2-3 times daily, cover with gauze and tape. Follow-up in a week or sooner if needed. Continue other chronic care/dietary modifications. Her questions were answered and she was advised to let us know if she has any further questions or concerns. This note was generated with [employer] software. It may contain incorrect words, spelling, and punctuation that were not noted in checking the note before signing.
== END 2022-12-18 23:59 | disposition home or self-care (01) ==
LOC: WC 07:44
PROVIDERS: PCP Internal Medicine; Referring Provider Internal Medicine; Visit Provider Internal Medicine
DX: L89.151 Pressure ulcer of sacral region, stage 1 (principal); E11.620 Type 2 diabetes mellitus with diabetic dermatitis; G40.909 Epilepsy, unspecified, not intractable, without status epilepticus; I10 Essential (primary) hypertension; E78.5 Hyperlipidemia, unspecified; Z79.899 Other long term (current) drug therapy; Z98.84 Bariatric surgery status
CPT/HCPCS: 99213; G0463

== ENCOUNTER 2023-02-17 10:00 | Outpatient (RCR) | payer MEDICAID, SELFPAY ==
--- NOTE | 2022-11-26 17:00 | HP.PTEVAL ---
Patient's Visit Information TRUE AYALA is a 57 year old F referred to Physical Therapy by Dr. Abdirashid Anthony MD with a diagnosis of Debilitation. Date of Evaluation: 11/26/22 Physical Therapist: Eliecer Churchill, PT, ATC - Visit Plan Frequency: 2-3x /Week Duration: 2 Months Plan: B LE strengthening, core stab ex's, balance and proprio, gait with FGA activitiy, nustep, and HEP - Subjective Pt reports she had a CVA in July 2022 which resulted in R LE weakness. Pt reports she was then placed in a senior living for approximately 2 months until now. Pt reports she is currently having kidney failure since having her stroke. Pt reports this has placed her with having to have dialysis 3 times per week. Pt report every time she has dialysis, her blood sugar crashes secondary to having DMII. Pt has had PT in the senior living over this time span. Pt reports she has no stairs at home so she hasn't attempted them yet. Pt reports she used to go on walks, but is unable to secondary to getting tired so quickly. Pt reports she has fallen once in the past 2 mos, and notes she is unable to get off the floor if she falls. Pt denies pain at this time. Pt has a walker, wheelchair, and rollator, but she hasn't been using one lately. - Objective Neuro: R L3 is hyposensitive to light touch. All other B LE sensation is WNL to light touch. Patellar reflex; R= 1/3, L= 3/3. MMT: R LE is grossly 4-/5 while L LE is 4/5 throughout. ROM: B LE's are WFL when compared bilaterally. Gait: Pt was able to ambulate approximately 140 feet until needing to rest secondary to pain. FGA: - Balance/Special Test Scores Functional Gait Assessment Score: 14 % Disability: 53.3400 Lower Extremity Functional Score: 29 - Goals Goal 1:: Pt will be able to ambulate greater than 600 feet to aid with community ambulation Goal Time Frame: 6-8 Weeks Goal 2:: Pt will increase FGA score x 5 points to aid with decreasing fall risk Goal Time Frame: 6-8 Weeks Goal 3:: Increase R LE strength x 1 grade to aid with stair negotiation Goal Time Frame: 6-8 Weeks Goal 4:: I with HEP Goal Time Frame: 6-8 Weeks - Rehabilitation Potential Physical Therapy Diagnosis: Pt has B LE weakness, difficulty with prolonged ambulation, and unsteady gait secondary to debilitation Rehabilitation Potential: Good - Anticipated Interventions Patient/Client Instruction: Educate patient on: Condition, Plan of Care For the Purpose of:: To improve self management Therapeutic Exercise to Include: Strength training, Endurance training, Balance training, Gait and locomotor training, Active ROM, Dynamic Lumbar Stabilization For the Purpose of:: To increase oxygenation perfusion, To improve muscle performance and motor function, To increase tolerance to activity/condition/position, To improve gait and locomotor functions Thank you for the opportunity to evaluate your patient. For Medicare and Medicare HMO plans, please review the plan of care and approve it. It will need to be FAXED BACK to us at [phone] for Medicare purposes. For Medicare only, by signing this I certify the plan of care. Please let me know if there are questions or concerns regarding this plan of care. Physician Signature: Date:
--- NOTE | 2022-12-02 17:11 | HP.OTEVAL_ITS ---
Patient's Visit Information TRUE AYALA is a 57 year old F, referred to Occupational Therapy by Dr. Abdirashid Anthony MD, with a diagnosis of debility. Date of Evaluation: 11/26/22 Occupational Therapist: Chana Vale, JONATHAN/Wiley, CHT - Subjective This 57 year old female was seen for OT eval with dx of debility. Pt states she suffered a stroke 2022. Pt states she went to hospital [facility] and then went to [facility] and went back to hospital due to insulin issue pt returned to hospital for another week. pt than sent to [facility] and able to get stronger and return home. Pt did not return home until the end of September. Pt returned home to her mobile home with her . pt states she take care of her . - ADLs Comments: unbale to change bed sheets Comments: pt states she lives with her in mobile home. has ramp for entry with hand rails. pt drives short distance only. pt does all cooking, cleaning, laundry and shopping (orders on line for delivery) as prior to her stroke she was using power cart. (pt states she would SOB and weakness in legs). . pt sponge bathing due to port for dialysis. had cleaning lady for 1x a month - ROM ROM Comments: pt demo BUE WNL - Strength Shoulder: right 4.7 left 7.8# Elbow: right biceps 14# left 16# triceps right 6# left 13# Kiln Tester: right 15# left 30# Lateral Pinch: right 2# left 10# Tripod Pinch: right unable left 8# Strength Comments: pt demo with right UE and drywall finisher weakness - Sensation Thumb: right 2.83 left 2.83 interpretation Normal sensation Index: right 2.83 left 2.83 interpretation Normal sensation Middle: right 2.83 left 2.83 interpretation Normal sensation Ring: right 2.83 left 2.83 interpretation Normal sensation Little: right 2.83 left 2.83 interpretation Normal sensation - Quick DASH-Disab of Arm,Shoulder& Hand Quick DASH Score: 72.7250 - Goals Goal:: pt will demo a increase in right drywall finisher strength by 10# or greater to increase pts ind. with ADLs and IADLs by d.c. pt will demo increase in resistive Fet2 peak force by 5# to increase pts functional strength and endurance by dMartinc Goal:: pt will demo understanding of energy conservation raven. to increase safety with ADls and IADLs by dMartinc - Rehabilitation General Assessment: pt demo with a decrease in UB strength limiting pts ind. with ADLs and IADLS. pt would benefit from skilled OT services 1-2x week for 4 weeks to increase pts strength and abilities to perform her ADLs and IADLs. Pt demo understanding and agrees to POC. Rehabilitation Potential: Good - Anticipated Interventions Strengthening, Ergonomic Education, Fine Motor Coord/Timo, Neuro Reeducation, Education re assistive Equipment, Education re Diagnosis, Home Program - Visit Plan Frequency: 2-3x /Week Duration: 2 Months TEXT: Thank you for the opportunity to evaluate your patient. For Medicare and Medicare HMO plans, please review the plan of care and approve it. It will need to be FAXED BACK to us at [phone] for Medicare purposes. Please let me know if there are questions or concerns regarding this plan of care. Physician Signature: Date:
--- NOTE | 2023-01-14 16:37 | HP.PTREVAL ---
Re-Evaluation Intro: Dr. Abdirashid Anthony MD, It has been my pleasure to treat TRUE AYALA over the last 8 visits for Debilitation. Please see the progress note below for an update on the physical therapy plan of care! Subjective Subjective: Pt reports she was sore after last Rx. Better today Objective Objective/Function: R LE MMT: R LE hip flex, knee flex, and knee ext 4-/5. all others /5 FGA: Gait: Pt is able to ambulate 1000 feet without difficulty Pt is showing great progression toward Rx goals at this time. Plan Plan Plan: B LE strengthening, core stab ex's, balance and proprio, gait with FGA activitiy, nustep, and HEP Balance/Gait/Functional tests Balance/Special Test Scores Functional Gait Assessment Score: 17 % Disability: 43.3400 Lower Extremity Functional Score: 49 Goals Goals Goal 1:: Pt will be able to ambulate greater than 600 feet to aid with community ambulation Goal Time Frame: 6-8 Weeks Goal Progress: Goal Met Goal 2:: Pt will increase FGA score x 5 points to aid with decreasing fall risk Goal Time Frame: 6-8 Weeks Goal Progress: Progressing Goal 3:: Increase R LE strength x 1 grade to aid with stair negotiation Goal Time Frame: 6-8 Weeks Goal Progress: Progressing Goal 4:: I with HEP Goal Time Frame: 6-8 Weeks Anticipated Interventions Anticipated Interventions Patient/Client Instruction: Educate patient on: Condition and Plan of Care For the Purpose of:: To improve self management Therapeutic Exercise to Include: Strength training, Endurance training, Balance training, Gait and locomotor training, Active ROM and Dynamic Lumbar Stabilization For the Purpose of:: To increase oxygenation perfusion, To improve muscle performance and motor function, To increase tolerance to activity/condition/position and To improve gait and locomotor functions Re-Evaluation Ending Re-evaluation ending: Please do not hesitate to contact me at [phone] by phone or if you have questions or concerns regarding this new plan of care! Sincerely, Eliecer Churchill, PT, ATC
--- NOTE | 2023-02-17 10:11 | HP.PTREVAL ---
Re-Evaluation Intro: Dr. Abdirashid Anthony MD, It has been my pleasure to treat TRUE AYALA over the last 15 visits for Debilitation. Please see the progress note below for an update on the physical therapy plan of care! Subjective Subjective: My R knee is a little sore today 08/28 Objective Objective/Function: MMT: R LE is grossly 4-/5 to 4/5 throughout Gait: Pt is able to ambulate 600 feet until needing to rest secondary to fatigue FGA: indicating poor balance and risk of fall Plan Plan Plan: Attempt to get 12 more PT visits approved for LE strengthening and balance activity Balance/Gait/Functional tests Balance/Special Test Scores Functional Gait Assessment Score: 16 % Disability: 46.6700 Lower Extremity Functional Score: 22 Goals Goals Goal 1:: Pt will be able to ambulate greater than 600 feet to aid with community ambulation Goal Time Frame: 6-8 Weeks Goal Progress: Goal Met Goal 2:: Pt will increase FGA score x 5 points to aid with decreasing fall risk Goal Time Frame: 6-8 Weeks Goal Progress: Progressing Goal 3:: Increase R LE strength x 1 grade to aid with stair negotiation Goal Time Frame: 6-8 Weeks Goal Progress: Progressing Goal 4:: I with HEP Goal Time Frame: 6-8 Weeks Anticipated Interventions Anticipated Interventions Patient/Client Instruction: Educate patient on: Condition and Plan of Care For the Purpose of:: To improve self management Therapeutic Exercise to Include: Strength training, Endurance training, Balance training, Gait and locomotor training, Active ROM and Dynamic Lumbar Stabilization For the Purpose of:: To increase oxygenation perfusion, To improve muscle performance and motor function, To increase tolerance to activity/condition/position and To improve gait and locomotor functions Re-Evaluation Ending Re-evaluation ending: Please do not hesitate to contact me at [phone] by phone or if you have questions or concerns regarding this new plan of care! Sincerely, Eliecer Churchill, PT, ATC
--- NOTE | 2023-02-17 10:44 | HP.OTREVAL ---
Re-Evaluation Intro: Dr. Abdirashid nAthony MD, It has been my pleasure to treat TRUE AYALA over the last 15 visits for debility. Please see the progress note below for an update on the occupational therapy plan of care! Subjective Subjective: pt arrives from PT states she is doing better- feels she is able to do about 45% of her daily occupations- pt states she began having tingling in both hands last two weeks - pt states she feels this is constant pt states she is doing HEP 2 x a day. pt states she has noticed a increase in endurance - pt state she is making dinner 4 x a week now. Objective Objective/Function: Integration Project Manager: R 20# L 25# Lateral Pinch: right unable, left 4# Tripod Pinch: right 0#, left 4# pt demo with ulnar nerve involvement with positive Froment's sign pt right shoulder flex is at 5# peak force testing with fet2 right shoulder ext 10 left shoulder flex 14 left shoulder ext 14 right biceps 14 triceps 12 left biceps 13 triceps 10 pt is making gains toward goals and functional strength to perform ADLs and IADLs. Plan Plan Frequency: 2-3x /Week Duration: 2 Months Visits in this POC: 2 months (2-3x month) Plan: pt demo need for increase need of skilled OT services 2-3x week for next 4 weeks to make gains in return of her functional strength for ADLs and IADLs. Goals Goals Patient Goals: Regain Strength, Use Hand/Wrist/Arm Normally Again and Be More Independent in ADLS Goal:: pt will demo a increase in right speech correction consultant strength by 10# or greater to increase pts ind. with ADLs and IADLs by d.c pt will demo increase in resistive Fet2 peak force by 5# to increase pts functional strength and endurance by d.c pt will demo increase sitting posture for 25 min by d.c Goal:: pt will demo understanding of energy conservation raven. to increase safety with ADls and IADLs by d.c Goal:: pt will report the ability to perform bathing and dressing tasks in less than 30 min noted to demo increase in endurance and abraham. of daily tasks by d/c. Anticipated Interventions Anticipated Interventions Anticipated Interventions: Strengthening, Ergonomic Education, Fine Motor Coord/Timo, Neuro Reeducation, Education re assistive Equipment, Education re Diagnosis and Home Program Re-Evaluation Ending Re-evaluation ending: Please do not hesitate to contact me at [phone] by phone or if you have questions or concerns regarding this new plan of care! Sincerely, Chana Vale, OTR/L, CHT
--- NOTE | 2023-06-02 07:54 | HP.OT.NRP ---
Patient Information Patient Information: TRUE AYALA was seen in my office for initial evaluation on 11/26/22. The following Plan of Care was established for this patient: POC Established Initial Frequency: 2-3x /Week Initial Duration: 2 Months Plan: pt demo need for increase need of skilled OT services 2-3x week for next 4 weeks to make gains in return of her functional strength for ADLs and IADLs. Anticipated Interventions Anticipated Interventions: Strengthening, Ergonomic Education, Fine Motor Coord/Timo, Neuro Reeducation, Education re assistive Equipment, Education re Diagnosis and Home Program Last Seen Last Seen: This patient was last seen in our office 02/17/23. Pertinent comments regarding their Occupational therapy will appear below: pt was seen for 15 OT sessions. No further apts are scheduled and due to time lapse in services pt is d/c. At this point I will be discontinuing this patient from occupational therapy. I would be happy to see this patient again in the future if found appropriate by the physician. Thank you! Chana Vale, OTR/L, CHT
== END 2023-02-17 19:00 | disposition home or self-care (01) ==
LOC: OT 10:00
PROVIDERS: PCP Internal Medicine; Referring Provider Internal Medicine; Visit Provider Internal Medicine
DX: R53.81 Other malaise (principal)
CPT/HCPCS: 97110; 97161; 97164; 97166; 97530

== ENCOUNTER → 2023-05-19 | Outpatient (CLI) | payer MEDICAID, SELFPAY ==
--- NOTE | 2023-05-19 09:37 | VDUE_ITS ---
Reason For Study: CKD Stage 4 Right Lower Arm Left Arm Proximal Radial artery diameter 1.4 x 1.5 Left Brachial artery diameter 3.2 x 3.0 mm. mm. Left Brachial artery waveform is triphasic . Proximal Radial artery waveform is Lateral Brachial vein diameter 0.8 x 0.8 mm. triphasic . Medial Brachial vein diameter 2.5 x 2.5 mm. Proximal Lateral Radial vein diameter 1.3 x Buttermaker Vein is present. 1.2 mm. Buttermaker Vein measures 0.9 mm. Proximal Medial Radial vein diameter 1.1 x Cephalic Vein at proximal upper arm measures 1.1 mm. 0.8 x 0.8 mm. Distal Radial artery diameter 1.5 x 1.5 mm. Cephalic vein at proximal upper arm depth Distal Lateral Radial vein diameter 0.8 x measures 6.4 mm. 0.8 mm. Cephalic Vein at mid upper arm measures 0.5 Distal Medial Radial vein diameter 0.7 x 0.7 x 0.4 mm. mm. Cephalic vein at mid upper arm depth Proximal Ulnar artery diameter 2.4 x 2.2 mm. measures 4.2 mm. Proximal Ulnar artery waveform is Cephalic Vein distal upper arm measures 0.7 triphasic . x 0.7 mm. Proximal Lateral Ulnar vein diameter 1.6 x Cephalic vein at distal upper arm depth 1.7 mm. measures 3.1 mm. Proximal Medial Ulnar vein diameter 1.2 x Cephalic Vein proximal forearm measures 0.5 1.2 mm. x 0.6 mm. Distal Ulnar artery diameter 1.5 x 1.5 mm. Cephalic Vein at mid forearm measures 0.6 x Distal Lateral Ulnar vein diameter 0.6 x 0.6 0.6 mm. mm. Cephalic Vein at distal forearm measures 0.4 Distal Medial Ulnar vein diameter 0.6 x 0.5 x 0.3 mm. mm. Proximal Basilic vein measures 1.0 x 1.0 mm. Right Arm Proximal Basilic vein depth measures 7.1 mm. Right Brachial artery diameter 2.6 x 3.1 mm. Mid Basilic vein measures 0.8 x 0.8 mm. Right Brachial artery waveform is Mid Basilic vein depth measures 7.9 mm. triphasic . Distal Basilic vein measures 0.8 x 0.8 mm. Lateral Brachial vein diameter 1.9 x 1.9 mm. Distal Basilic vein depth measures 7.6 mm. Medial Brachial vein diameter 0.9 x 1.0 mm. Left Lower Arm Buttermaker Vein is present. Proximal Radial artery diameter 1.0 x 1.1 Buttermaker Vein measures 1.5 mm. mm. Cephalic Vein at proximal upper arm measures Proximal Radial artery waveform is 0.9 x 1.0 mm. triphasic . Cephalic vein at proximal upper arm depth Proximal Lateral Radial vein diameter 0.8 x measures 7.6 mm. 0.7 mm. Cephalic Vein at mid upper arm measures 0.5 Proximal Medial Radial vein diameter 1.0 x x 0.6 mm. 0.9 mm. Cephalic vein at mid upper arm depth Distal Radial artery diameter 1.2 x 1.2 mm. measures 6.0 mm. Distal Lateral Radial vein diameter 0.9 x Cephalic Vein distal upper arm measures 1.0 0.8 mm. x 1.1 mm. Distal Medial Radial vein diameter 0.6 x 0.5 Cephalic vein at distal upper arm depth mm. measures 5.2 mm. Proximal Ulnar artery diameter 1.0 x 1.1 mm. Cephalic Vein proximal forearm measures 0.4 Proximal Ulnar artery waveform is x 0.4 mm. triphasic . Cephalic Vein at mid forearm measures 0.5 x Proximal Lateral Ulnar vein diameter 1.2 x 0.5 mm. 1.1 mm. Cephalic Vein at distal forearm measures 0.7 Proximal Medial Ulnar vein diameter 1.3 x x 0.7 mm. 1.4 mm. Proximal Basilic vein measures 1.7 x 1.7 mm. Distal Ulnar artery diameter 1.5 x 1.4 mm. Proximal Basilic vein depth measures 7.5 mm. Distal Lateral Ulnar vein diameter 1.0 x 1.1 Mid Basilic vein measures 1.1 x 1.2 mm. mm. Mid Basilic vein depth measures 7.5 mm. Distal Medial Ulnar vein diameter 0.9 x 1.0 Distal Basilic vein measures 1.1 x 1.2 mm. mm. Distal Basilic vein depth measures 10.0 mm. VL/Dialysis Vein Map PRE-OP BILAT Interpretation Summary Bilateral upper extremity deep and superficial veins patent with measurements a godwin. Bilateral upper extremity arteries patent with normal triphasic flow throughout , measurements as above. Ordering Physician: Jhon Collier Referring Physician: Abdirashid Anthony M.D. Performed By: Nina Palma RVT ???
== END | disposition home or self-care (01) ==
LOC: CVS 09:33
PROVIDERS: PCP Internal Medicine; Referring Provider Internal Medicine Nephrology; Visit Provider Internal Medicine Nephrology
DX: N18.4 Chronic kidney disease, stage 4 (severe) (principal)
CPT/HCPCS: 93985

== ENCOUNTER 2023-07-27 06:25 | Day surgery (SDC) | payer MEDICAID, SELFPAY ==
[2023-07-12 10:17] LABS: Hematocrit 28.6 % (37-47); Hemoglobin 9.2 g/dL (12.0-15.0); Mean Corp Hgb Conc 32.2 g/dL (32-36); Mean Corpuscular Volume 90.2 fL (81-99); Platelet Count 204 K/mm3 (150-450); RBC Distribution Width CV 12.5 % (11.6-14.6); RBC Distribution Width SD 41.3 fl (35.1-43.9); Red Blood Count 3.17 M/mm3 (4.2-5.4)
[2023-07-12 10:48] LABS: Anion Gap 9 (5-15); BUN 60 mg/dL (7-18); BUN/Creat Ratio 15.2 RATIO (10-20); Calcium,Total 8.9 mg/dL (8.5-10.1); Chloride 114 mmol/L (98-107); Creatinine, Serum 3.96 mg/dL (0.55-1.02); EST Glomerular Filtration Rate 12 mL/min (>60); Est Glom Filt Rate - Afr Amer 15 mL/min (>60); Glucose 252 mg/dL (74-106); Potassium 3.9 mmol/L (3.5-5.1); Sodium Level 140 mmol/L (136-145)
[2023-07-27 07:05] VITALS: BP 155/61; PULSE 73; RESP 16; TEMP 37.1; O2SAT 100; BMI 25.7
[2023-07-27] MEDS: 0.9% Normal Saline (500mL Bag) 500 ML 15 ML IV (07:15)
--- NOTE | 2023-07-27 08:01 | HP.PCM_ITS ---
HPI - General HPI Narrative TRUE AYALA, is a 57 F who presents for hemodialysis access. FOR[facility]LY [facility], [facility] Medical History (Updated 07/09/23 @ 10:13 by Lydia Jaquez) MARY (acute kidney injury) Anemia Anxiety Anxiety and depression Arthritis Chronic anemia Chronic kidney disease, stage 3b Chronic pancreatitis Decubitus ulcer of coccygeal region, stage 1 Depression Dermatitis Diabetes mellitus, type 2 Dysphagia GERD (gastroesophageal reflux disease) GERD (gastroesophageal reflux disease) Gluteal cleft wound History of echocardiogram History of edema History of GI bleed History of renal dialysis History of renal disease HTN (hypertension) Hyperlipidemia Hypokalemia Hypothyroidism Insomnia Leukocytosis Low iron Migraine headache Non-smoker Seizure disorder Seizures Stroke/cerebrovascular accident Vitamin D deficiency Wears glasses Home Medications cyanocobalamin (vitamin B-12) 1,000 mcg capsule 1,000 mcg PO DAILY SUPPLEMENT 08/07/22 [History Last Taken 07/26/23 20:00] lamotrigine 25 mg tablet 25 mg PO DAILY SEZIURES 08/07/22 [History Last Taken 07/27/23 05:40] levetiracetam 500 mg tablet 500 mg PO BID SEZIURES 08/07/22 [History Last Taken 09/11/22] atorvastatin 20 mg tablet 20 mg PO QHS CHOLESTEROL #30 tabs 09/17/22 [Rx Last T aken 07/26/23 20:00] topiramate 50 mg tablet 50 mg PO DAILY SEZIURES #30 tabs 09/17/22 [Rx Last Taken 07/27/23 05:40] acetaminophen 500 mg capsule 1,000 mg PO Q6H PRN Pain 11/19/22 [History Last Taken Unknown] cholecalciferol (vitamin D3) 25 mcg (1,000 unit) tablet 2,000 unit PO DAILY SUPPLEMENT 06/17/23 [History Last Taken 07/26/23 20:00] ferrous sulfate 325 mg (65 mg iron) tablet 325 mg PO DAILY 06/17/23 [History Last Taken 07/26/23 20:00] furosemide 40 mg tablet (Lasix) 40 mg PO DAILY 06/17/23 [History Last Taken 07/26/23 08:00] insulin lispro 100 unit/mL subcutaneous cartridge (Humalog U-100 Insulin) 1 sliding scale dose subcut USEASDIRECTD 06/17/23 [History Last Taken 07/26/23 20:00] venlafaxine 150 mg capsule,extended release 24 hr 150 mg PO DAILY 06/17/23 [History Last Taken 07/26/23 08:00] insulin glargine 100 unit/mL (3 mL) subcutaneous pen (Lantus Solostar U-100 Insulin) 8 unit subcut QHS PRN DIABETES 07/09/23 [History Last Taken 07/26/23 20:00 4 unit] mirtazapine 15 mg tablet 15 mg PO DAILY 07/09/23 [History Last Taken 07/26/23 20:00] nifedipine 90 mg tablet,extended release 90 mg PO DAILY 07/09/23 [History Last Taken 07/26/23 08:00] omeprazole 20 mg capsule,delayed release 20 mg PO DAILY 07/09/23 [History Last Taken 07/27/23 05:40] Allergy/AdvReac Type Severity Reaction Status Date / Time propofol Allergy Severe Other Verified 07/27/23 06:56 Family History Other CVA (cerebral vascular accident) Diabetes Hypertension Kidney disease Surgical History (Updated 07/09/23 @ 10:13 by Lydia Jaquez) H/O gastric bypass History of appendectomy History of cholecystectomy History of colonoscopy History of esophagogastroduodenoscopy (EGD) History of hysterectomy History of infusaport central venous catheter removal History of right knee surgery Social History household members: spouse Smoking Status: Never smoker alcohol intake: never substance use type: does not use ROS Constitutional Constitutional: Denies chills, fever(s), frequent falls, lethargy or weakness Eyes Eyes: Denies blind spots, change in vision or loss of vision ENT HEENT: Denies bleeding gums, hoarseness or sore throat Cardiovascular Cardiovascular: Denies abdominal pain, bluish discoloration of hand/feet, chest pain with activity, claudication, cold extremities, cyanosis, dyspnea on exertion, erythema on extremities, irregular heart rhythm, leg edema, leg ulcers, numbness in extremities or weakness in extremities Respiratory/Chest Respiratory/Chest: Denies cough, excessive phlegm production, shortness of breath at rest, shortness of breath with exertion or wheezing Gastrointestinal Gastrointestinal: Denies anorexia, change in stool character, constipation, diarrhea, melena or rectal bleeding Genitourinary Genitourinary: Denies dysuria or hematuria Musculoskeletal Musculoskeletal: Denies abnormal gait Integumentary Integumentary: Reports other Details: ; Denies erythema, non-healing lesions or wounds Neurologic Neurologic: Denies abnormal speech, focal weakness, headache(s), loss of vision, numbness, paresthesias or sensory deficit Hematologic/Lymphatic Hematologic/Lymphatic: Denies easy bleeding, easy bruising or lymphadenopathy Vital Signs Vital Signs Vital Signs: 07/27/23 07:02 07/27/23 07:05 Temperature 98.7 F Temperature Source Temporal Pulse Rate 73 Respiratory Rate 16 Respiratory Pattern Normal Blood Pressure 155/61 H Blood Pressure Mean 92 Blood Pressure Source Monitor Blood Pressure Position Semi-Fowlers Blood Pressure Location Right Arm Pulse Ox 100 Oxygen Delivery Method Room Air Weight Weight: 145 lb Body Mass Index (BMI) 25.7 Physical Exam Const alert, oriented x3, no apparent distress and healthy appearing General Appearance: cooperative; Negative for combative or lethargic Orientation / Consciousness: awake Exam Limitations: no limitations HEENT Head and Scalp: normocephalic and atraumatic Eyes EOMs intact bilaterally General Eye: normal appearance of both eyes Neck full ROM, no lymphadenopathy and thyroid normal General: trachea midline; Negative for lymphadenopathy or tenderness Thyroid: thyroid normal Lymph Lymphatic: Negative for no lymphadenopathy noted Resp normal respiratory effort and no use of accessory muscles Effort and Inspection: Negative for labored, stridor or audible wheezes Cardio regular rate and regular rhythm Peripheral Pulses: brachial pulses present and radial pulses present Back/Spine Cervical Spine: cervical ROM normal Extremity full ROM, normal capillary refill and no clubbing, cyanosis or edema Skin no rashes or lesions noted and no wounds Neuro oriented x3, CN's II-XII intact bilaterally, no focal motor deficits and no sensory deficits noted Psych thought process normal, cooperative, affect normal, speech normal and activity/motor behavior normal Results Lab / Micro Data 07/12/23 09:18 07/12/23 09:18 Assessment & Plan Assessment/Plan (1) Chronic kidney disease, stage 3b: PLAN: -left arm AV graft with cadaver
[2023-07-27] MEDS: Cefazolin 2 GM in 0.9% Normal Saline (100mL Bag) 100 ML IV (08:14)
[2023-07-27] MEDS: Lidocaine 1% (30 ml sdv) 30 ML Vial (08:44)
[2023-07-27] MEDS: Heparin Injection (Vial) 5,000 UNIT/ML VIAL 5000 UNIT ×2 (08:44→09:15)
[2023-07-27] MEDS: Bupivacaine 0.25% 30 ML Vial (08:44)
[2023-07-27 10:07] LABS: Bedside Glucose 169 mg/dL (74-106)
--- NOTE | 2023-07-27 10:40 | PCM.OPRPT ---
Problems Associated Problem List Diagnoses (1) Chronic kidney disease, stage 3b: Report of Operation Date of Procedure: 07/27/23 Pre-Operative Diagnosis: CKD Post-Operative Diagnosis: same Surgery/Procedure Performed:: left upper arm AV graft with cadaver Surgeon: Trevor Forde Type of Anesthesia: General Estimated Blood Loss (mL): 20 Description of Procedure: HPI: Patient is a 57-year-old female with chronic kidney disease who previously had been on dialysis though she has significant improvement in her renal function and was able to be liberated from dialysis need. She now has further decline in her function so she presents for access creation. She had vein mapping which revealed no satisfactory sized veins for fistula creation and a small brachial artery. Plan is for upper arm AV graft with cadaver to help potentially minimize steal symptoms. Description of procedure: Upon obtaining form consent and verification correct patient procedure site patient was taken to the operating where she was placed under general esthesia. She was then positioned prepped and draped in you sterile fashion a timeout was performed. Ultrasound used to evaluate the brachial artery was found to be small caliber as expected however it was slightly larger in the axilla so the plan was to create a loop graft with anastomosis at the axilla for both the artery and the vein. Skin overlying the vessels in the axilla was then anesthetized 1% lidocaine and Marcaine and longitudinal incision created. Both left greater dissect down through subcutaneous tissue and self-retaining tractor position. Further dissection carried down to level the fascia and the fascia incised. Sharp dissection used to dissect free the brachial vein and artery with care taken identify and protect the adjacent nerves. Writing was then placed Vesseloops on the brachial vein proximal and distal. The brachial artery was soft with no significant atherosclerosis and of satisfactory caliber so was dissected free enterotomy placed vessel proximal to distal. A [place] tunneler was then used to tunnel into the loop orientation with a counterincision just above the antecubital crease. The arterial limb inflow to the graft would be a lateral over the bicep and the venous limb return will be medial. The patient was then heparinized allowed to circulate for 3 minutes. At this point the cadaver had been thawed per senior data modeler's instructions and was flushed to confirm hemostasis on the side branches. The brachial artery was then occluded with Vesseloops longitudinal arteriotomy created 11 blade extended Weldon scissors. The cadaver was then secured in end-to-side fashion with 5-0 Prolene running fashion. After complete suture line vessels were flushed into the graft and satisfactory stasis was noted. There is brisk flow through the graft and continued palpable radial pulse in the wrist. The graft was marked to maintain orientation. The graft was then secured to the tunneler and pulled through first of the counterincision and then back up to the axillary incision with care taken to avoid any rotation. The brachial vein was then occluded with Vesseloops and longitudinal venotomy created with 11 blade extended Weldon scissors. The graft was then cut to length and beveled to match the venotomy and anastomosis performed using a 5-0 Prolene in a running fashion. Putting suture line the vessels were backbled. After open suture line clamps removed satisfactory stasis was noted. Patient was palpable thrill in the graft and the outflow vein. The radial artery was assessed with Doppler and found to have biphasic signal that augmented minimally with compression of the graft. The hand and fingers were pink and warm with normal capillary refill. The incision was closed with 3-0 Vicryl followed by 4 Monocryl and Dermabond for the skin. Occlusion case patient was anesthesia taken recovery room for anticipated discharged home.
--- NOTE | 2023-07-27 10:41 | DCINST_ITS ---
Discharge Instructions Diet Discharge Diet: No restrictions Activity May shower in (days): 2 Lifting Restrictions: not more than 20 lbs with left arm for 3 weeks Additional Activity Instructions:: do not submerge incision for 3 weeks Dressing / Incision Call your doctor if your incision/area has: Sudden Increased Bleeding, Increased Pain/ Swelling, Increased Redness and Foul Smelling Discharge Call your doctor if you observe: Fever of 101 or Higher, Coldness, Increased Pain and Numbness or Tingling Remove Dressing in: 2 days Cleanse incision/area with: Soap & Water Follow Up Care Test Results: Test results from this visit will be discussed in further detail at your follow- up appointment, if applicable. Discharge Plan Admission Attending Provider: Trevor Forde Primary Care Provider: Abdirashid Anthony Discharge Orders/Prescriptions Prescriptions: New oxycodone 5 mg tablet 5 mg PO Q8H PRN (Reason: pain) 4 Days Qty: 12 0RF Continued cholecalciferol (vitamin D3) 25 mcg (1,000 unit) tablet 2,000 unit PO DAILY ferrous sulfate 325 mg (65 mg iron) tablet 325 mg PO DAILY furosemide [Lasix] 40 mg tablet 40 mg PO DAILY venlafaxine 150 mg capsule,extended release 24hr 150 mg PO DAILY Humalog U-100 Insulin 100 unit/mL cartridge 1 sliding scale dose subcut USEASDIRECTD levetiracetam 500 mg tablet 500 mg PO BID lamotrigine 25 mg tablet 25 mg PO DAILY cyanocobalamin (vitamin B-12) 1,000 mcg Capsule 1,000 mcg PO DAILY atorvastatin 20 MG tablet 20 mg PO QHS Qty: 30 0RF topiramate 50 mg tablet 50 mg PO DAILY Qty: 30 0RF acetaminophen 500 mg Capsule 1,000 mg PO Q6H PRN (Reason: Pain) mirtazapine 15 mg tablet 15 mg PO DAILY nifedipine 90 mg tablet extended release 90 mg PO DAILY omeprazole 20 mg capsule,delayed release(DR/EC) 20 mg PO DAILY insulin glargine [Lantus Solostar U-100 Insulin] 100 unit/mL (3 mL) insulin pen 8 unit SUBCUT QHS PRN (Reason: DIABETES) Referrals / Follow Up: Abdirashid Anthony MD [Primary Care Provider] - Disposition Disposition (needs filled in before D/C Order can be placed): Home, Self Care
[2023-07-27 11:02] VITALS: BP 141/63; BP 155/61; PULSE 82; RESP 16; TEMP 36.9; O2SAT 100
[2023-07-27 11:05] VITALS: BP 143/60; BP 155/61; PULSE 78; RESP 16; O2SAT 100
[2023-07-27 11:10] VITALS: BP 132/55; BP 155/61; PULSE 78; RESP 16; O2SAT 100
[2023-07-27 11:15] VITALS: BP 142/59; BP 155/61; PULSE 78; RESP 16; TEMP 37.3; O2SAT 100
[2023-07-27 11:39] LABS: Bedside Glucose 178 mg/dL (74-106)
[2023-07-27 11:50] VITALS: BP 155/61
== END 2023-07-27 12:04 | disposition home or self-care (01) ==
LOC: SDC 06:25 → AC 06:26
PROVIDERS: PCP Internal Medicine; Referring Provider Surgery Trauma Surgery; Visit Provider Surgery Trauma Surgery
PROC: (CPT 36825; principal; 2023-07-27 07:45)
DX: Z49.01 Encounter for fitting and adjustment of extracorporeal dialysis catheter (principal); E11.22 Type 2 diabetes mellitus with diabetic chronic kidney disease; Z79.4 Long term (current) use of insulin; N18.32 Chronic kidney disease, stage 3b; I12.9 Hypertensive chronic kidney disease with stage 1 through stage 4 chronic kidney disease, or unspecified chronic kidney disease; E78.5 Hyperlipidemia, unspecified; F41.9 Anxiety disorder, unspecified; F32.A Depression, unspecified; K21.9 Gastro-esophageal reflux disease without esophagitis; Z79.899 Other long term (current) drug therapy; Z86.73 Personal history of transient ischemic attack (TIA), and cerebral infarction without residual deficits
CPT/HCPCS: 36825; 36415; 80048; 82962; 85027; 86850; 86900; 86901; A4648; J7040; J2405

== ENCOUNTER 2023-08-05 07:32 | Emergency (ER) | payer MEDICAID, SELFPAY ==
[2023-08-05 07:33] VITALS: BP 191/62; PULSE 78; RESP 14; TEMP 36.8; O2SAT 100; BMI 26.8
[2023-08-05 08:49] LABS: Absolute Lymphocyte Count 2.25 X10^3/uL (0.83-4.51); Absolute Neutrophil Count 4.5 X10^3/uL (2.0-7.7); Basophil# 0.05 X10^3/uL; Basophil% 0.6 % (0-1); Eosinophil# 0.19 X10^3/uL; Eosinophils% 2.5 % (0-5); Hematocrit 24.4 % (37-47); Hemoglobin 7.5 g/dL (12.0-15.0); Lymphocyte # 2.25 X10^3/ul (0.83-4.51); Lymphocyte % 29.1 % (19-41); Mean Corp Hgb Conc 30.7 g/dL (32-36); Mean Corpuscular Volume 94.2 fL (81-99); Mean Platelet Vol. 10.4 fl (6.2-12.0); Monocyte# 0.66 X10^3/uL; Monocyte% 8.5 % (0-10); NRBC Flagged by Analyzer 0 % (0-5); Neutrophil # 4.53 X10^3/uL (2.7-7.7); Neutrophil % 58.8 % (47-70); Platelet Count 194 K/mm3 (150-450); RBC Distribution Width CV 13.3 % (11.6-14.6); RBC Distribution Width SD 45.6 fl (35.1-43.9); Red Blood Count 2.59 M/mm3 (4.2-5.4); White Blood Count 7.7 K/mm3 (4.4-11.0)
[2023-08-05] MEDS: 0.9% Normal Saline (500mL Bag) 500 ML 1000 ML IV (09:00)
[2023-08-05 09:16] LABS: Anion Gap 7 (5-15); BUN 61 mg/dL (7-18); BUN/Creat Ratio 13.9 RATIO (10-20); Calcium,Total 8.6 mg/dL (8.5-10.1); Chloride 117 mmol/L (98-107); Creatinine, Serum 4.39 mg/dL (0.55-1.02); EST Glomerular Filtration Rate 11 mL/min (>60); Est Glom Filt Rate - Afr Amer 13 mL/min (>60); Estimated Creatinine Clearance 12.83 ml/min; Glucose 223 mg/dL (74-106); Potassium 4.8 mmol/L (3.5-5.1); Sodium Level 143 mmol/L (136-145)
--- NOTE | 2023-08-05 09:20 | ED.VIS.GI ---
HPI HPI - GI History of Present Illness Chief Complaint: Constipation Detail of Chief Complaint: Constipation and incontinence Informant: patient Abdominal Pain/Flank Pain Onset: Weeks (Last normal bowel movement 1 week ago, last bowel movement 3 days ago) Context: Sudden Onset Timing: Continuous Quality: Aching Location: RLQ and LLQ Current Severity: Mild Maximum Severity: Moderate Worsened by: Nothing Relieved by: Nothing Nausea/Vomiting/Emesis GI Symptom: Positive for Nausea; Negative for Vomiting Diarrhea/Melena/Hematochezia GI Symptom: Negative for Diarrhea, Melena or Hematochezia Associated Symptoms Associated Symptoms: Negative for Dysuria, Frequency, Hematuria or Urgency Narrative Narrative: Patient is a 57-year-old woman who had a AV graft using cadaver on July [address] Forde. Patient was on open analgesic. She states only taken 3 doses. She presents because of abdominal cramping with constipation. Patient has a diaper and because she has incontinence which raises concern for fecal impaction. Patient has not noted blood or mucus in her stool. She denies urologic symptoms. She had decreased p.o. intake. She does report decreased urine output. She has not noted a change in the color of her urine. She denies fever or chills. She denies headache, visual, ocular auditory symptoms. She denies cardiac or respiratory symptoms. Her only urologic symptom is decreased urine output. Prior similar symptoms: No Recent Illness/Hospitalization: Yes PFSH [facility] Medical History MARY (acute kidney injury) Anemia Anxiety Anxiety and depression Arthritis Chronic anemia Chronic kidney disease, stage 3b Chronic pancreatitis Decubitus ulcer of coccygeal region, stage 1 Depression Dermatitis Diabetes mellitus, type 2 Dysphagia GERD (gastroesophageal reflux disease) GERD (gastroesophageal reflux disease) Gluteal cleft wound History of echocardiogram History of edema History of GI bleed History of renal dialysis History of renal disease HTN (hypertension) Hyperlipidemia Hypokalemia Hypothyroidism Insomnia Leukocytosis Low iron Migraine headache Non-smoker Seizure disorder Seizures Stroke/cerebrovascular accident Vitamin D deficiency Wears glasses Home Medications lamotrigine 25 mg tablet 25 mg PO Q12H SEZIURES 08/07/22 [History Last Taken 08/03/23] levetiracetam 500 mg tablet 500 mg PO BID SEZIURES 08/07/22 [History Last Taken 08/04/23] atorvastatin 20 mg tablet 20 mg PO QHS CHOLESTEROL #30 tabs 09/17/22 [Rx Last Taken 08/03/23] acetaminophen 500 mg capsule 1,000 mg PO Q6H PRN Pain 11/19/22 [History Last Taken 08/04/23] cholecalciferol (vitamin D3) 25 mcg (1,000 unit) tablet 2,000 unit PO DAILY SUPPLEMENT 06/17/23 [History Last Taken 07/26/23 20:00] ferrous sulfate 325 mg (65 mg iron) tablet 325 mg PO BID 06/17/23 [History Last Taken 08/03/23] furosemide 40 mg tablet (Lasix) 40 mg PO DAILY 06/17/23 [History Last Taken 08/03/23] insulin lispro 100 unit/mL subcutaneous cartridge (Humalog U-100 Insulin) 1 sliding scale dose subcut USEASDIRECTD 06/17/23 [History Last Taken 08/04/23] venlafaxine 150 mg capsule,extended release 24 hr 150 mg PO DAILY 06/17/23 [History Last Taken 08/03/23] insulin glargine 100 unit/mL (3 mL) subcutaneous pen (Lantus Solostar U-100 Insulin) 5 unit subcut QHS PRN DIABETES 07/09/23 [History Last Taken 08/04/23] mirtazapine 15 mg tablet 15 mg PO DAILY 07/09/23 [History Last Taken 08/04/23] nifedipine 90 mg tablet,extended release 90 mg PO DAILY 07/09/23 [History Last Taken 08/03/23] omeprazole 20 mg capsule,delayed release 20 mg PO DAILY 07/09/23 [History Last Taken 08/03/23] oxycodone 5 mg tablet 5 mg PO Q8H PRN pain 4 days #12 tabs 07/27/23 [Rx Last Taken 08/03/23] buspirone 5 mg tablet 5 mg PO BID 08/05/23 [History Last Taken 08/03/23] cholecalciferol (vitamin D3) 50 mcg (2,000 unit) tablet 50 mcg feeding tube DAILY 08/05/23 [History Last Taken 08/03/23] cyanocobalamin (vitamin B-12) 1,000 mcg tablet 1,000 mcg PO DAILY 08/05/23 [History Last Taken 08/03/23] topiramate 50 mg tablet 50 mg PO Q12H SEZIURES 08/05/23 [History Last Taken 08/03/23] Allergy/AdvReac Type Severity Reaction Status Date / Time propofol Allergy Severe Other Verified 08/05/23 07:33 Family History Other CVA (cerebral vascular accident) Diabetes Hypertension Kidney disease Surgical History H/O gastric bypass History of appendectomy History of cholecystectomy History of colonoscopy History of esophagogastroduodenoscopy (EGD) History of hysterectomy History of infusaport central venous catheter removal History of right knee surgery Social History household members: spouse Smoking Status: Never smoker alcohol intake: never substance use type: does not use ROS ROS ED Constitutional Constitutional ED: Denies chills, fever(s), subjective, sweats or weight loss ENT ENT ED: Denies ear pain, rhinorrhea or sore throat Cardiovascular Cardiovascular: Denies chest pain, orthopnea, palpitations, paroxysmal nocturnal dyspnea or racing heartbeat Respiratory/Chest Respiratory/Chest: Denies cough, dyspnea, dyspnea on exertion, orthopnea or paroxysmal nocturnal dyspnea Gastrointestinal Gastrointestinal: Reports abdominal pain, constipation and nausea; Denies diarrhea, melena or vomiting Genitourinary Genitourinary ED: Denies dysuria, hematuria or urinary frequency Musculoskeletal Musculoskeletal: Denies arthralgias, back pain, myalgias or neck pain Integumentary Denies rash Neurologic Neurologic: Reports weakness; Denies headache(s) Psychiatric Psychiatric: Denies anxiety or depression Hematologic/Lymphatic Hematologic/Lymphatic: Denies easy bleeding or easy bruising EXAM Physical Exam Const Vital Signs: 08/05/23 07:33 08/05/23 09:57 Temperature 98.2 F Temperature Source Temporal Pulse Rate 78 87 Respiratory Rate 14 18 Blood Pressure 191/62 H 197/83 H Blood Pressure Mean 105 121 Pulse Ox 100 98 Oxygen Delivery Method Room Air Room Air Positive well nourished and well developed General Appearance ED: well developed, NAD and pallor HEENT Reports TM's clear and dry mucous membranes normocephalic and atraumatic Tympanic Membrane ED: Yes TM's clear Mouth ED: Yes dry mucous membranes Mouth: dry mucous membranes Eyes PERRL and EOMs intact bilaterally General Eye ED: Yes pale conjunctiva; Negative for scleral icterus Neck no lymphadenopathy, supple and no JVD Resp normal respiratory effort and clear to auscultation bilaterally Cardio regular rate, regular rhythm, S1 normal heart sound, S2 normal heart sound and no murmurs GI non-distended and no masses; Negative for non-tender Inspection: Negative for abdominal distention Auscultation: hypoactive bowel sounds Palpation: soft, tender LLQ and guarding LLQ; Negative for hepatomegaly, splenomegaly, hernia, mass, pulsatile mass or rebound tenderness present Narrative: Rectal exam reveals soft brown stool. Back/Spine no CVA tenderness Thoracic Spine / Upper Back: Negative for thoracic spinal tenderness Lumbar Spine / Lower Back: Negative for lumbar spinal tenderness Extremity full ROM General Extremety ED: Negative for edema or tenderness General Extremity: Negative for edema Neuro CN's II-XII intact bilaterally and moves all extremities Sensorium / Orientation: alert Psych mental status grossly normal and thought process normal Skin no wounds General Skin Exam: pallor; Negative for jaundice Lesions: no lesions Rashes: no rashes MDM MDM MDM Narrative Medical decision making narrative: With patient and left lower quadrant pain and this may represent diverticulosis/diverticulitis. This also could represent atypical presentation for ureteral stone or UTI. Will obtain CBC to assess white count differential and H&H. BMP to assess BUN and creatinine since she has history of kidney disease. Will obtain CT with IV contrast if able. Since patient's creatinine is 4.39 and she is not on dialysis at this point will obtain CT to unenhanced study. Patient has had a 1+ gram drop in hemoglobin. Stool was assessed for occult blood. History & Record Review Additional record(s) reviewed:: Prior outpatient record (Operative note by Dr. Forde.) and Prior labs Lab Data Labs: Laboratory Results - last 24 hr 08/05/23 08:30 WBC 7.7 RBC 2.59 L Hgb 7.5 L Hct 24.4 L MCV 94.2 MCH 29.0 MCHC 30.7 L RDW Std Deviation 45.6 H RDW Coeff of Jacqueline 13.3 Plt Count 194 MPV 10.4 Immature Gran % (Auto) 0.500 Neut % (Auto) 58.8 Lymph % (Auto) 29.1 [place] % (Auto) 8.5 Eos % (Auto) 2.5 Baso % (Auto) 0.6 Absolute Neuts (auto) 4.5 Absolute Lymphs (auto) 2.25 Nucleated RBC % 0 Sodium 143 Potassium 4.8 Chloride 117 H Carbon Dioxide 19.0 L Anion Gap 7 BUN 61 H Creatinine 4.39 H Estim Creat Clear Calc 12.83 Est GFR (MDRD) Af Amer 13 L Est GFR (MDRD) Non-Af 11 L BUN/Creatinine Ratio 13.9 Glucose 223 H Calcium 8.6 Radiography Diagnostic Testing: Clinical Impression(s) from Imaging Studies Abdomen/Pelvis CT 08/05/23 10:00 IMPRESSION: Status post subtotal gastrectomy and gastric bypass surgery. Large amount of fecal material in the colon. Increased soft tissue markings are seen in the presacral space. Localized inflammatory changes to be ruled out. The patient is status post appendectomy and hysterectomy. Electronically Signed: Sunil Quintanilla MD at 10:26 EST , Treatment and Re-Evaluation :: Patient was informed of the CAT scan findings and concern in the presacral area. She states when she had a stroke she developed sacral decubiti and the area was prominent and that abnormality has been mentioned in the past. Discharge Plan Triage Chief Complaint: Constipation ED Provider: Juan Carlos Mcghee Dx/Rx/DC Orders Clinical Impression: Obstipation, HTN (hypertension), Anemia, Chronic renal disease, stage V Instructions: ED Constipation (Adult) Prescriptions: No Action cholecalciferol (vitamin D3) 25 mcg (1,000 unit) tablet 2,000 unit PO DAILY ferrous sulfate 325 mg (65 mg iron) tablet 325 mg PO BID furosemide [Lasix] 40 mg tablet 40 mg PO DAILY venlafaxine 150 mg capsule,extended release 24hr 150 mg PO DAILY Humalog U-100 Insulin 100 unit/mL cartridge 1 sliding scale dose subcut USEASDIRECTD levetiracetam 500 mg tablet 500 mg PO BID lamotrigine 25 mg tablet 25 mg PO Q12H atorvastatin 20 MG tablet 20 mg PO QHS Qty: 30 0RF acetaminophen 500 mg Capsule 1,000 mg PO Q6H PRN (Reason: Pain) mirtazapine 15 mg tablet 15 mg PO DAILY nifedipine 90 mg tablet extended release 90 mg PO DAILY omeprazole 20 mg capsule,delayed release(DR/EC) 20 mg PO DAILY insulin glargine [Lantus Solostar U-100 Insulin] 100 unit/mL (3 mL) insulin pen 5 unit SUBCUT QHS PRN (Reason: DIABETES) oxycodone 5 mg tablet 5 mg PO Q8H PRN (Reason: pain) 4 Days Qty: 12 0RF buspirone 5 mg tablet 5 mg PO BID cholecalciferol (vitamin D3) 50 mcg (2,000 unit) tablet 50 mcg feeding tube DAILY cyanocobalamin (vitamin B-12) 1,000 mcg tablet 1,000 mcg PO DAILY topiramate 50 mg tablet 50 mg PO Q12H Primary Care Provider: Abdirashid Anthony Referrals: Abdirashid Anthony MD [Primary Care Provider] - 3-5 Days if not improving Activity Restrictions/Additional Instructions: 1 cap of MiraLAX with glass of water every 1-2 hours until you begin to have results. Once you have results stop taking the MiraLAX Disposition Disposition: Home, Self Care
[2023-08-05 09:57] VITALS: BP 197/83; PULSE 87; RESP 18; O2SAT 98
--- NOTE | 2023-08-05 10:00 | CT_ITS ---
STUDY: CT ABDOMEN AND PELVIS WITHOUT CONTRAST REASON FOR EXAM: Female, 57 years old. Left lower quadrant. Stage III kidney disease. History of chronic pancreatitis. Gastric bypass surgery. RADIATION DOSAGE (If Supplied By Facility): CTDIvol = ( 8.29 ) mGy, DLP = ( 463.90 ) mGycm TECHNIQUE: Transaxial images were obtained from the dome of the diaphragm to the symphysis pubis without oral contrast, and without intravenous contrast. Sagittal and coronal images were reconstructed. Individualized dose optimization techniques were used for this CT. COMPARISON: None. FINDINGS: There is a 7.6 mm calcified granuloma in the posterior medial segment of the left lower lobe. The visualized portions of the heart are within normal limits. Normal liver. There are surgical clips in the gallbladder fossa consistent with a prior cholecystectomy. Normal spleen. Normal pancreas. Normal bilateral adrenal glands. Normal right kidney. Normal left kidney. Status post subtotal gastrectomy for gastric bypass surgery. Small hiatal hernia. Normal small intestine. Large amount of fecal material is seen in the colon. There is evidence of increased soft tissue changes in the presacral fat. Patient status post appendectomy. There is scattered atherosclerotic calcification of the abdominal aorta, without a demonstrated aneurysm. Normal inferior vena cava. Normal retroperitoneum. Mild degree of the bladder wall thickening although the bladder is not completely distended at this time. There is absence of the uterus consistent with a prior hysterectomy. Normal abdominal wall. Normal osseous structures. CT/Abdomen/Pelvis without Cont IMPRESSION: Status post subtotal gastrectomy and gastric bypass surgery. Large amount of fecal material in the colon. Increased soft tissue markings are seen in the presacral space. Localized inflammatory changes to be ruled out. The patient is status post appendectomy and hysterectomy. Electronically Signed: Sunil Quintanilla MD at 10:26 EST ,
[2023-08-05 12:14] VITALS: BP 166/66; PULSE 73; RESP 16; TEMP 35.9; O2SAT 97
== END 2023-08-05 12:20 | disposition home or self-care (01) ==
PROVIDERS: Emergency Provider Emergency Medicine; PCP Internal Medicine; Visit Provider Emergency Medicine
DX: K59.00 Constipation, unspecified (principal); E11.22 Type 2 diabetes mellitus with diabetic chronic kidney disease; N18.5 Chronic kidney disease, stage 5; I12.0 Hypertensive chronic kidney disease with stage 5 chronic kidney disease or end stage renal disease; Z79.4 Long term (current) use of insulin; E55.9 Vitamin D deficiency, unspecified; K21.9 Gastro-esophageal reflux disease without esophagitis; F41.9 Anxiety disorder, unspecified; F32.A Depression, unspecified; Z79.899 Other long term (current) drug therapy; Z86.73 Personal history of transient ischemic attack (TIA), and cerebral infarction without residual deficits
CPT/HCPCS: 74176; 80048; 82274; 85025; 96360; 99285; J7040; A4216